=== PATIENT | male | born 1945 | race Caucasian/White ===

== ENCOUNTER 2020-05-09 09:21 | Outpatient (REF) | payer MEDICARE, SELFPAY ==
--- NOTE | 2020-05-09 09:25 | CT_ITS ---
EXAMINATION: CT CHEST WITHOUT CONTRAST CLINICAL INFORMATION: Follow-up left upper lobe opacity seen on chest x-ray COMPARISON: Previous chest x-ray January 2020 TECHNIQUE: Multidetector volumetric CT imaging of the chest was done. Axial MIP volume rendering provided. Sagittal and coronal reformatted images were obtained. This CT examination was performed using dose optimization techniques as appropriate, variously including the following: *Automated exposure control *Adjustment of mA and/or kV according to patient size (this includes techniques or standardized protocols for targeted exams where dose is matched to indication/reason for exam; i.e. extremities or head) *Use of iterative reconstruction technique DLP: 309 mGy-cm FINDINGS: LUNGS: There is evidence of emphysema. There is an abnormal parenchymal density in the right upper lobe. This is irregular in shape and difficult to measure. This measures 0.9 x 1.6 cm in sagittal and transverse dimension coronal reconstructed image 68 and 5 mm in AP dimension sagittal constructed image 87. This is adjacent 2 area of cystic or emphysematous change. There is a 2 mm noncalcified right middle lobe nodule axial image 469 series 5. There are increased peripheral interstitial markings questionable for interstitial disease. There are small calcified pulmonary nodules, largest measuring 3 mm in the right lower lobe axial image 468 and 474 series 5. There is increased AP dimension of the trachea. There is dependent increased soft tissue mixed with air seen in the right mainstem bronchus suggestive of patient secretions. MEDIASTINUM: The visualized thyroid gland is unremarkable. There is diffuse mediastinal lymphadenopathy. Largest lymph node is a subcarinal lymph node that measures 1.5 cm in AP dimension and is slightly enlarged. There are post-CABG changes. The heart is slightly enlarged. There is no pericardial effusion. The ascending thoracic aorta is slightly dilated measuring 4.3 cm. PLEURA: There is no pleural effusion. No pleural mass or thickening. AXILLA: No chest wall mass or enlarged axillary lymph nodes are seen. UPPER ABDOMEN: There is evidence of severe atherosclerotic disease. OSSEOUS STRUCTURES: There is evidence of old trauma to the left first rib probably accounting for findings on chest x-ray. There are degenerative changes of the spine. CT/CT chest wo con IMPRESSION: Severe emphysema. No left upper lobe finding. Chest x-ray finding probably corresponds to old left first rib fracture. Abnormal parenchymal density in the right upper lobe. Comparison with old outside chest CT if available is recommended. Either chest CT follow-up or PET CT scan should be considered. Question mild interstitial disease. Post-CABG changes. Prominent mediastinal lymph nodes. Severe atherosclerotic disease. Findings will be communicated by the [employer] work flow data management engineer Gladys Kulkarni.
== END 2020-05-09 09:22 | disposition home or self-care (01) ==
LOC: HO.CT 09:21
PROVIDERS: PCP Internal Medicine; Visit Provider Internal Medicine
DX: R91.8 Other nonspecific abnormal finding of lung field (principal)
CPT/HCPCS: 71250

== ENCOUNTER 2020-05-12 12:01 | Outpatient (REF) | payer MEDICARE, SELFPAY ==
[2020-05-12 14:08] LABS: MANUAL DIFF FLAG NO
[2020-05-12 14:17] LABS: Basophils Percent Auto 0.4 % (0-2); Eosinophils Absolute Auto 0.1 X10*3/uL (0.0-0.4); Eosinophils Percent Auto 1.1 % (0-4); Hematocrit 39.1 % (42-52); Hemoglobin 13.1 g/dl (14.0-18.0); Imm Gran Abs Auto 0.02 X10*3/uL (0.00-0.03); Imm Gran Pct Auto 0.3 % (0.0-0.4); Mean Corpuscular HGB Conc 33.5 g/dl (31.0-36.0); Mean Corpuscular Hemoglobin 33.9 pg (27.0-33.0); Mean Platelet Volume 11.2 fL (9.4-12.4); Monocytes Absolute Auto 0.9 X10*3/uL (0.1-1.2); Monocytes Percent Auto 11.9 % (2-11); Neutrophils Absolute Auto 4.2 X10*3/uL (2.0-8.3); Neutrophils Percent Auto 58.3 % (45-73); Platelet Count 190 X10*3/uL (160-400); Red Blood Count 3.87 X10*6/uL (4.60-5.80); Red Cell Distribution Width 13.6 % (11.0-16.0); White Blood Count 7.2 X10*3/uL (4.8-10.8)
[2020-05-12 14:25] LABS: INTERNATIONAL NORM RATIO 1.1 (0.9-1.1); Prothrombin Time 13.2 SEC (10.8-13.0)
[2020-05-12 14:28] LABS: Partial Thromboplastin Time 28.8 SEC (24.1-38.0)
[2020-05-12 14:43] LABS: Alanine Aminotransferase 16 U/L (0-40); Albumin Level 3.9 g/dL (3.5-5.0); Alkaline Phosphatase 37 U/L (39-117); Anion Gap 12 (12-20); Aspartate Amino Transferase 19 U/L (5-37); Bilirubin Total 0.8 mg/dL (0.0-1.0); Blood Urea Nitrogen 14 mg/dL (9-16); Calcium 8.7 mg/dL (8.4-10.2); Carbon Dioxide 29 mmol/L (22-29); Chloride 103 mmol/L (96-108); Estimated Glomerular Filt Rate > 60; Glucose Random 107 mg/dL (60-115); Potassium 3.7 mmol/l (3.3-5.1); Sodium 140 mmol/L (135-145); Total Protein 6.6 g/dL (6.5-8.0)
== END 2020-05-12 12:02 | disposition home or self-care (01) ==
LOC: HO.10HDL 12:01
PROVIDERS: Visit Provider Internal Medicine Medical Oncology
DX: R91.1 Solitary pulmonary nodule (principal)
CPT/HCPCS: 36415; 80053; 85025; 85610; 85730

== ENCOUNTER 2020-06-16 07:54 | Outpatient (REF) | payer MEDICARE, SELFPAY ==
--- NOTE | 2020-06-16 | MR_ITS ---
EXAMINATION: MRI NECK WITHOUT AND WITH CONTRAST CLINICAL INFORMATION: Polyp in nasal cavity. Presurgery. COMPARISON: FDG PET/CT scan 05/17/2020. TECHNIQUE: MRI of the neck was attempted. The patient was unable to tolerate imaging. Only a left limited sagittal T1 sequence was obtained. MR/MR orbits face neck wo/w con FINDINGS/IMPRESSION: Nondiagnostic examination. The patient was unable to tolerate imaging and only a limited sagittal T1 acquisition was performed.
[2020-06-16 09:44] LABS: MANUAL DIFF FLAG NO
[2020-06-16 09:55] LABS: Basophils Percent Auto 0.4 % (0-2); Eosinophils Absolute Auto 0.1 X10*3/uL (0.0-0.4); Eosinophils Percent Auto 1.1 % (0-4); Hematocrit 41.2 % (42-52); Imm Gran Abs Auto 0.04 X10*3/uL (0.00-0.03); Imm Gran Pct Auto 0.6 % (0.0-0.4); Lymphocytes Absolute Auto 2.3 X10*3/uL (1.2-4.9); Lymphocytes Percent Auto 32.1 % (20-40); Mean Corpuscular HGB Conc 31.6 g/dl (31.0-36.0); Mean Corpuscular Hemoglobin 32.5 pg (27.0-33.0); Mean Platelet Volume 10.9 fL (9.4-12.4); Monocytes Absolute Auto 0.9 X10*3/uL (0.1-1.2); Monocytes Percent Auto 11.9 % (2-11); Neutrophils Absolute Auto 3.9 X10*3/uL (2.0-8.3); Neutrophils Percent Auto 53.9 % (45-73); Platelet Count 171 X10*3/uL (160-400); Red Cell Distribution Width 13.8 % (11.0-16.0); White Blood Count 7.3 X10*3/uL (4.8-10.8)
[2020-06-16 10:34] LABS: Alanine Aminotransferase 14 U/L (0-40); Albumin Level 4.1 g/dL (3.5-5.0); Alkaline Phosphatase 35 U/L (39-117); Anion Gap 16 (12-20); Aspartate Amino Transferase 19 U/L (5-37); Bilirubin Total 0.6 mg/dL (0.0-1.0); Blood Urea Nitrogen 21 mg/dL (9-16); Calcium 8.9 mg/dL (8.4-10.2); Carbon Dioxide 26 mmol/L (22-29); Chloride 104 mmol/L (96-108); Estimated Glomerular Filt Rate > 60; Glucose Random 100 mg/dL (60-115); Potassium 4.3 mmol/l (3.3-5.1); Sodium 142 mmol/L (135-145); Total Protein 6.8 g/dL (6.5-8.0)
== END 2020-06-16 07:55 | disposition home or self-care (01) ==
LOC: HO.MRI 07:54
PROVIDERS: Absent Provider Internal Medicine Medical Oncology; PCP Internal Medicine; Visit Provider Otolaryngology
DX: Z01.818 Encounter for other preprocedural examination (principal); J33.0 Polyp of nasal cavity
CPT/HCPCS: 36415; 70543; 80053; 85025

== ENCOUNTER 2020-06-21 09:52 | Outpatient (REF) | payer MEDICARE, SELFPAY ==
--- NOTE | 2020-06-21 09:57 | CT_ITS ---
EXAMINATION: CT SINUS WITHOUT CONTRAST CLINICAL INFORMATION: Sinonasal polyps. COMPARISON: None TECHNIQUE: Axial 2 mm thin and reformatted 2 mm and sagittal coronal images of facial bones were obtained. This CT examination was performed using dose optimization techniques as appropriate, variously including the following: *Automated exposure control. *Adjustment of mA and/or kV according to patient size (this includes techniques or standardized protocols for targeted exams where dose is matched to indication/reason for exam; i.e. extremities or head). *Use of iterative reconstruction technique. DLP: 150 mGy-cm FINDINGS: There is a large soft tissue mass in the right maxillary sinus extending through the ostiomeatal complex into the right middle and inferior nasal cavity obliterating the right middle and inferior turbinates. There is thickening of right maxillary bony wall from chronic inflammatory process. The left maxillary sinus, ethmoid and sphenoid sinuses are clear. There is minimal mucoperiosteal thickening right frontal sinus at the left ostiomeatal complex and the left frontoethmoidal recess is widely patent. The right ostiomeatal complex is obliterated from this antrochoanal mass or polyp. The left maxillary, ethmoid and sphenoid bony sinus garrison are intact. The cribriform plate appears normal. Bilateral lamina papyracea appears normal. NASAL CAVITY/NASOPHARYNX: The right nasal cavity is obliterated from antrochoanal polyp or mass. The septum appears midline. The left middle and inferior turbinates are normal-appearing. ADDITIONAL RELEVANT FINDINGS: No periapical disease is seen. The TMJs articulate normally. The orbits and skull base soft tissues are unremarkable. The middle ear cavities and mastoid air cells are clear. Limited evaluation demonstrates no acute intracranial findings. CT/CT sinus wo con IMPRESSION: 1. 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 The middle and inferior turbinates are obliterated. There is obstruction of ostiomeatal complex and partial obstruction of right frontoethmoidal recess. There is moderate thickening of right maxillary sinus garrison likely chronic changes. 2. The right nasal cavity is obliterated. 3. Minimal mucoperiosteal thickening right frontal sinus.
== END 2020-06-21 09:53 | disposition home or self-care (01) ==
LOC: HO.CT 09:52
PROVIDERS: PCP Internal Medicine; Visit Provider Otolaryngology
DX: J33.0 Polyp of nasal cavity (principal)
CPT/HCPCS: 70486

== ENCOUNTER 2020-07-22 13:04 | Outpatient (REF) | payer MEDICARE, SELFPAY ==
[2020-07-22 14:25] LABS: Basophils Absolute Auto 0.1 X10*3/uL (0.0-0.2); Basophils Percent Auto 0.5 % (0-2); Eosinophils Absolute Auto 0.1 X10*3/uL (0.0-0.4); Eosinophils Percent Auto 0.8 % (0-4); Hemoglobin 13.8 g/dl (14.0-18.0); Imm Gran Abs Auto 0.03 X10*3/uL (0.00-0.03); Imm Gran Pct Auto 0.3 % (0.0-0.4); Lymphocytes Absolute Auto 2.2 X10*3/uL (1.2-4.9); MANUAL DIFF FLAG NO; Mean Corpuscular HGB Conc 32.9 g/dl (31.0-36.0); Mean Corpuscular Hemoglobin 33.2 pg (27.0-33.0); Mean Platelet Volume 11.2 fL (9.4-12.4); Monocytes Absolute Auto 0.9 X10*3/uL (0.1-1.2); Neutrophils Absolute Auto 5.9 X10*3/uL (2.0-8.3); Neutrophils Percent Auto 64.4 % (45-73); Platelet Count 195 X10*3/uL (160-400); Red Blood Count 4.16 X10*6/uL (4.60-5.80); Red Cell Distribution Width 13.3 % (11.0-16.0); White Blood Count 9.2 X10*3/uL (4.8-10.8)
[2020-07-22 15:05] LABS: Alanine Aminotransferase 15 U/L (0-40); Albumin Level 4.2 g/dL (3.5-5.0); Alkaline Phosphatase 35 U/L (39-117); Anion Gap 12 (12-20); Aspartate Amino Transferase 20 U/L (5-37); Bilirubin Total 0.8 mg/dL (0.0-1.0); Blood Urea Nitrogen 20 mg/dL (9-16); Calcium 9.3 mg/dL (8.4-10.2); Carbon Dioxide 30 mmol/L (22-29); Chloride 105 mmol/L (96-108); Estimated Glomerular Filt Rate > 60; Glucose Random 97 mg/dL (60-115); Potassium 4.1 mmol/l (3.3-5.1); Sodium 143 mmol/L (135-145)
== END 2020-07-22 13:05 | disposition home or self-care (01) ==
LOC: HO.LAB 13:04
PROVIDERS: PCP Internal Medicine; Visit Provider Internal Medicine
DX: I48.91 Unspecified atrial fibrillation (principal); I10 Essential (primary) hypertension; I25.10 Atherosclerotic heart disease of native coronary artery without angina pectoris; J44.9 Chronic obstructive pulmonary disease, unspecified
CPT/HCPCS: 36415; 80053; 85025

== ENCOUNTER 2020-11-07 14:35 | Outpatient (REF) | payer MEDICARE, SELFPAY ==
[2020-11-07 15:22] LABS: MANUAL DIFF FLAG NO
[2020-11-07 15:36] LABS: Basophils Percent Auto 0.5 % (0-2); Eosinophils Absolute Auto 0.1 X10*3/uL (0.0-0.4); Eosinophils Percent Auto 0.8 % (0-4); Hematocrit 38.3 % (42-52); Hemoglobin 12.4 g/dl (14.0-18.0); Imm Gran Abs Auto 0.04 X10*3/uL (0.00-0.03); Imm Gran Pct Auto 0.6 % (0.0-0.4); Lymphocytes Absolute Auto 1.8 X10*3/uL (1.2-4.9); Lymphocytes Percent Auto 29.1 % (20-40); Mean Corpuscular HGB Conc 32.4 g/dl (31.0-36.0); Mean Corpuscular Hemoglobin 32.5 pg (27.0-33.0); Mean Corpuscular Volume 100.3 fL (80-98); Mean Platelet Volume 11.2 fL (9.4-12.4); Monocytes Absolute Auto 0.7 X10*3/uL (0.1-1.2); Monocytes Percent Auto 11.7 % (2-11); Neutrophils Absolute Auto 3.6 X10*3/uL (2.0-8.3); Neutrophils Percent Auto 57.3 % (45-73); Platelet Count 197 X10*3/uL (160-400); Red Blood Count 3.82 X10*6/uL (4.60-5.80); Red Cell Distribution Width 14.4 % (11.0-16.0); White Blood Count 6.2 X10*3/uL (4.8-10.8)
[2020-11-07 15:43] LABS: INTERNATIONAL NORM RATIO 1.2 (0.9-1.1); Prothrombin Time 14.5 SEC (10.8-13.0)
[2020-11-07 15:45] LABS: Partial Thromboplastin Time 31.4 SEC (24.1-38.0)
[2020-11-07 15:50] LABS: Alanine Aminotransferase 13 U/L (0-40); Alkaline Phosphatase 35 U/L (39-117); Anion Gap 12 (12-20); Aspartate Amino Transferase 17 U/L (5-37); Bilirubin Total 0.6 mg/dL (0.0-1.0); Blood Urea Nitrogen 17 mg/dL (9-16); Calcium 9.6 mg/dL (8.4-10.2); Carbon Dioxide 30 mmol/L (22-29); Chloride 104 mmol/L (96-108); Estimated Glomerular Filt Rate > 60; Glucose Random 150 mg/dL (60-115); Potassium 3.7 mmol/L (3.3-5.1); Sodium 142 mmol/L (135-145); Total Protein 6.6 g/dL (6.5-8.0)
== END 2020-11-07 14:36 | disposition home or self-care (01) ==
LOC: HO.LAB 14:35
PROVIDERS: PCP Internal Medicine; Visit Provider Internal Medicine
DX: Z01.818 Encounter for other preprocedural examination (principal); I48.91 Unspecified atrial fibrillation; I10 Essential (primary) hypertension; J44.9 Chronic obstructive pulmonary disease, unspecified; R60.9 Edema, unspecified; I25.10 Atherosclerotic heart disease of native coronary artery without angina pectoris
CPT/HCPCS: 36415; 80053; 85025; 85610; 85730

== ENCOUNTER 2021-04-13 08:59 | Outpatient (REF) | payer MEDICARE, SELFPAY ==
[2021-04-13 09:13] LABS: MANUAL DIFF FLAG NO
[2021-04-13 10:32] LABS: Basophils Percent Auto 0.5 % (0-2); Eosinophils Absolute Auto 0.2 X10*3/uL (0.0-0.4); Hematocrit 34.2 % (42-52); Hemoglobin 10.4 g/dl (14.0-18.0); Imm Gran Abs Auto 0.02 X10*3/uL (0.00-0.03); Imm Gran Pct Auto 0.3 % (0.0-0.4); Lymphocytes Absolute Auto 1.8 X10*3/uL (1.2-4.9); Lymphocytes Percent Auto 23.6 % (20-40); Mean Corpuscular HGB Conc 30.4 g/dl (31.0-36.0); Mean Corpuscular Hemoglobin 26.6 pg (27.0-33.0); Mean Corpuscular Volume 87.5 fL (80-98); Mean Platelet Volume 10.9 fL (9.4-12.4); Monocytes Absolute Auto 1.1 X10*3/uL (0.1-1.2); Monocytes Percent Auto 15.1 % (2-11); Neutrophils Absolute Auto 4.3 X10*3/uL (2.0-8.3); Neutrophils Percent Auto 57.5 % (45-73); Platelet Count 254 X10*3/uL (160-400); Red Blood Count 3.91 X10*6/uL (4.60-5.80); Red Cell Distribution Width 18.7 % (11.0-16.0); White Blood Count 7.4 X10*3/uL (4.8-10.8)
[2021-04-13 10:56] LABS: Alanine Aminotransferase 12 U/L (0-40); Alkaline Phosphatase 38 U/L (39-117); Anion Gap 11 (12-20); Aspartate Amino Transferase 20 U/L (5-37); Bilirubin Total 0.8 mg/dL (0.0-1.0); Blood Urea Nitrogen 12 mg/dL (9-16); Calcium 9.7 mg/dL (8.4-10.2); Carbon Dioxide 28 mmol/L (22-29); Chloride 107 mmol/L (96-108); Cholesterol 116 mg/dL; Estimated Glomerular Filt Rate > 60; Glucose Fasting 105 mg/dL (60-99); HDL Cholesterol 23 mg/dL; LDL Cholesterol Calculated 76 mg/dl; Potassium 4.4 mmol/L (3.3-5.1); Sodium 142 mmol/L (135-145); Total Protein 6.8 g/dL (6.5-8.0); Triglycerides 87 mg/dL
[2021-04-13 11:04] LABS: Estimated Average Glucose 126 mg/dL
[2021-04-13 11:28] LABS: Prostate Specific Antigen Scr 3.13 ng/mL (<0.05-4.0)
== END 2021-04-13 09:00 | disposition home or self-care (01) ==
LOC: HO.LAB 08:59
PROVIDERS: PCP Internal Medicine; Visit Provider Internal Medicine
DX: Z12.5 Encounter for screening for malignant neoplasm of prostate (principal); I10 Essential (primary) hypertension; I48.91 Unspecified atrial fibrillation; R60.0 Localized edema; N40.0 Benign prostatic hyperplasia without lower urinary tract symptoms; D64.9 Anemia, unspecified; R73.03 Prediabetes; E78.5 Hyperlipidemia, unspecified
CPT/HCPCS: 36415; 80053; 80061; 83036; 84153; 85025

== ENCOUNTER 2021-10-31 16:18 | Outpatient (REF) | payer MEDICARE, SELFPAY ==
[2021-10-31 17:21] LABS: Influenza A PCR NEGATIVE (Negative); Influenza B PCR NEGATIVE (Negative); Resp Syncy Virus RNA Qual PCR NEGATIVE (Negative); SARS COV2 PCR INHOUSE NEGATIVE (Negative)
== END 2021-10-31 16:19 | disposition home or self-care (01) ==
LOC: HO.LNP 16:18
PROVIDERS: Visit Provider Internal Medicine
DX: R05.9 Cough, unspecified (principal); R50.9 Fever, unspecified; Z20.822 Contact with and (suspected) exposure to COVID-19
CPT/HCPCS: 0241U

== ENCOUNTER 2021-10-31 16:20 | Outpatient (REF) | payer MEDICARE, SELFPAY ==
--- NOTE | ~2021-10-31 | XR_ITS ---
EXAMINATION: XR CHEST CLINICAL INFORMATION: Rule out pneumonia, CHF COMPARISON: Chest radiograph 01/14/2020 TECHNIQUE: 2 views of the chest were obtained. FINDINGS: Status post median sternotomy and CABG. Cardiomediastinal silhouette is mildly enlarged. Underlying COPD. There are chronic underlying interstitial lung markings with more pronounced opacities involving the right middle lobe and right upper lobe. There is no pleural effusion or pneumothorax. There are degenerative changes in the spine. XR/XR chest 2V IMPRESSION: Underlying COPD with chronic appearing interstitial markings. More pronounced opacities in the right middle lobe and right upper lobe which may reflect acute infiltrate versus progressive interstitial changes.
[2021-10-31 16:39] LABS: MANUAL DIFF FLAG NO
[2021-10-31 17:47] LABS: Basophils Percent Auto 0.3 % (0-2); Eosinophils Absolute Auto 0.1 X10*3/uL (0.0-0.4); Eosinophils Percent Auto 0.5 % (0-4); Hematocrit 28.8 % (42.0-52.0); Hemoglobin 8.9 g/dl (14.0-18.0); Imm Gran Abs Auto 0.09 X10*3/uL (0.00-0.03); Imm Gran Pct Auto 0.7 % (0.0-0.4); Lymphocytes Absolute Auto 1.1 X10*3/uL (1.2-4.9); Lymphocytes Percent Auto 8.5 % (20-40); Mean Corpuscular HGB Conc 30.9 g/dl (31.0-36.0); Mean Corpuscular Hemoglobin 26.8 pg (27.0-33.0); Mean Corpuscular Volume 86.7 fL (80.0-98.0); Mean Platelet Volume 10.8 fL (9.4-12.4); Monocytes Absolute Auto 1.4 X10*3/uL (0.1-1.2); Monocytes Percent Auto 11.4 % (2-11); Neutrophils Absolute Auto 9.9 x10*3/uL (2.0-8.3); Neutrophils Percent Auto 78.6 % (45-73); Platelet Count 276 X10*3/uL (160-400); Red Blood Count 3.32 X10*6/uL (4.60-5.80); Red Cell Distribution Width 19.2 % (11.0-16.0); White Blood Count 12.6 X10*3/uL (4.8-10.8)
[2021-10-31 18:00] LABS: Alanine Aminotransferase 9 U/L (0-40); Albumin Level 3.3 g/dL (3.5-5.0); Alkaline Phosphatase 43 U/L (39-117); Anion Gap 15 (12-20); Aspartate Amino Transferase 23 U/L (5-37); Bilirubin Total 1.2 mg/dL (0.0-1.0); Blood Urea Nitrogen 17 mg/dL (9-16); Carbon Dioxide 24 mmol/L (22-29); Chloride 102 mmol/L (96-108); Estimated Glomerular Filt Rate > 60; Glucose Random 109 mg/dL (60-115); Sodium 137 mmol/L (135-145); Total Protein 6.4 g/dL (6.5-8.0)
== END 2021-10-31 16:21 | disposition home or self-care (01) ==
LOC: HO.LAB 16:20
PROVIDERS: PCP Internal Medicine; Visit Provider Internal Medicine
DX: R06.02 Shortness of breath (principal); I48.91 Unspecified atrial fibrillation; J44.9 Chronic obstructive pulmonary disease, unspecified; Z95.1 Presence of aortocoronary bypass graft
CPT/HCPCS: 36415; 71046; 80053; 85025

== ENCOUNTER 2022-01-16 10:20 | Outpatient (REF) | payer MEDICARE, SELFPAY ==
--- NOTE | ~2022-01-16 | XR_ITS ---
EXAMINATION: XR ANKLE, LEFT CLINICAL INFORMATION: Left ankle pain. Possible spur. COMPARISON: None TECHNIQUE: AP, lateral, and mortise views of the left ankle. FINDINGS: Normal bony mineralization. No acute or healing fracture, dislocation, or destructive process. Ankle mortise is symmetric. No visible ankle capsular effusion. The subtalar joint unremarkable. There is tiny spur inferior aspect medial malleolus. There are small posterior and plantar calcaneal spurs. The retrocalcaneal recess is preserved. Subtalar joint unremarkable. Scattered atherosclerotic calcifications present vasculature. XR/XR ankle LT 2V IMPRESSION: -Posterior and plantar calcaneal spurs.
--- NOTE | ~2022-01-16 | XR_ITS ---
EXAMINATION: XR CHEST CLINICAL INFORMATION: Cough COMPARISON: Previous chest x-ray most recent October 2021 TECHNIQUE: 2 views of the chest were obtained. FINDINGS: The cardiac silhouette is enlarged but stable. Post-CABG changes are seen. Hilar and mediastinal contours are unremarkable. There are emphysematous changes seen at the lung apices. The lungs are otherwise clear. There is slight blunting at the right lateral costophrenic angle questionable for small right pleural effusion or pleural thickening. There is no left pleural effusion. There is no pneumothorax. There are degenerative changes of the spine. XR/XR chest 2V IMPRESSION: Stable enlargement of the cardiac silhouette. Emphysematous changes at the lung apices, right greater than left. Question very small right pleural effusion or pleural thickening.
[2022-01-16 10:37] LABS: MANUAL DIFF FLAG NO
[2022-01-16 10:51] LABS: Basophils Percent Auto 0.5 % (0-2); Eosinophils Percent Auto 0.4 % (0-4); Imm Gran Abs Auto 0.05 X10*3/uL (0.00-0.03); Imm Gran Pct Auto 0.6 % (0.0-0.4); Lymphocytes Absolute Auto 1.6 X10*3/uL (1.2-4.9); Lymphocytes Percent Auto 20.9 % (20-40); Mean Corpuscular HGB Conc 29.5 g/dl (31.0-36.0); Mean Corpuscular Hemoglobin 25.5 pg (27.0-33.0); Mean Corpuscular Volume 86.6 fL (80.0-98.0); Mean Platelet Volume 9.7 fL (9.4-12.4); Monocytes Absolute Auto 0.8 X10*3/uL (0.1-1.2); Monocytes Percent Auto 10.7 % (2-11); Neutrophils Absolute Auto 5.2 x10*3/uL (2.0-8.3); Neutrophils Percent Auto 66.9 % (45-73); Platelet Count 263 X10*3/uL (160-400); Red Blood Count 2.39 X10*6/uL (4.60-5.80); White Blood Count 7.8 X10*3/uL (4.8-10.8)
[2022-01-16 11:08] LABS: Iron 27 mcg/dL (45-160); Percent Iron Saturation 5 % (15-50); Total Iron Binding Capacity 528 mcg/dL (228-428); Unsaturated Iron Binding 501 ug/dL
[2022-01-16 11:10] LABS: Hematocrit 20.7 % (42.0-52.0); Hemoglobin 6.1 g/dl (14.0-18.0)
== END 2022-01-16 10:21 | disposition home or self-care (01) ==
LOC: HO.LAB 10:20
PROVIDERS: PCP Internal Medicine; Visit Provider Internal Medicine
DX: M25.572 Pain in left ankle and joints of left foot (principal); R05.9 Cough, unspecified; D64.9 Anemia, unspecified; I48.91 Unspecified atrial fibrillation
CPT/HCPCS: 36415; 71046; 73600; 83540; 85025

== ENCOUNTER 2022-01-17 10:56 | Inpatient (IN) | payer MEDICARE, SELFPAY ==
[2022-01-17] VITALS (11 sets, daily range): BP systolic 90–117; BP diastolic 41–65; PULSE 64–86; RESP 15–25; TEMP 36.4–37.1; O2SAT 95–96; BMI 27.6
--- NOTE | ~2022-01-17 | XR_ITS ---
EXAMINATION: XR CHEST CLINICAL INFORMATION: Shortness of breath COMPARISON: 01/16/2022 TECHNIQUE: Frontal view of the chest was obtained. FINDINGS: Lung volumes are symmetric. There is suggestion of mildly increasing interstitial opacification compared to prior. Redemonstrated findings of emphysema. No focal dense consolidation is seen. No evidence of pneumothorax or significant pleural effusion. Cardiac silhouette is enlarged. Sternal wires and mediastinal clips are noted. No acute osseous findings are seen. XR/XR chest 1V IMPRESSION: Mild interstitial prominence which could reflect subtle interstitial edema in the proper clinical setting. Redemonstrated emphysema.
--- NOTE | 2022-01-17 11:20 | ECG_ITS ---
Test Reason : weakness Blood Pressure : / mmHG Vent. Rate : 061 BPM Atrial Rate : 000 BPM P-R Int : 000 ms QRS Dur : 102 ms QT Int : 424 ms P-R-T Axes : 000 -02 147 degrees QTc Int : 426 ms Atrial fibrillation Low voltage QRS Nonspecific T wave abnormality Abnormal ECG No previous ECGs available Referred By: Florence Becker Electronically Signed By:SHANNON ANGULO MD
--- NOTE | 2022-01-17 11:41 | ED_ITS ---
HPI - Weakness General Chief complaint: Recheck/Abnormal Lab/Rx Stated complaint: pt states low hemoglobin Time Seen by Provider: 01/17/22 11:15 Source: patient and family Mode of arrival: ambulatory Limitations: no limitations History of Present Illness HPI Narrative: 76 yo male with hx of CAD s/p 4V CABG, COPD, HTN, HLD, afib on xarelto (just started this 2 weeks ago) also on baby aspirin. Denies taking any OTC NSAIDs. He denies prior GIB and has never had EGD in the past. Notes 2 months of worsening dyspnea and fatigue. Intermittent melena. One episode of brb per rectum this week with straining. Sent to ED by [facility] for hemoglobin 6.1. Has not received any recent transfusions. MD Complaint: generalized weakness Onset (ago): month(s) (2 but progressively worse over past 2 weeks) Duration: constant Location: generalized Migration: none Severity: moderate Quality: dull Relieving factors: rest Exacerbating factors: exertion Context: other (just started xarelto 2 weeks ago used to be on plavix has had intermittent black stools, did recently have brb per x 1 with straining) Associated symptoms: other (weakness, intermittent black stools, HOLMAN, fatigue) Related Data Home Medications Medication Instructions Recorded Confirmed aspirin 81 mg chewable tablet 81 mg PO DAILY 01/17/22 01/17/22 atorvastatin 40 mg tablet 1 tab PO BEDTIME 01/17/22 01/17/22 budesonide-formoterol HFA 160 1 puff PO BID 01/17/22 01/17/22 mcg-4.5 mcg/actuation aerosol inhaler (Symbicort) cholecalciferol (vitamin D3) 125 125 mcg PO DAILY 01/17/22 01/17/22 mcg (5,000 unit) tablet (Vitamin D3) diltiazem HCl 240 mg capsule,24 1 cap PO DAILY 01/17/22 01/17/22 hr,extended release dutasteride 0.5 mg capsule 1 cap PO BEDTIME 01/17/22 01/17/22 fenofibrate nanocrystallized 145 1 tab PO DAILY 01/17/22 01/17/22 mg tablet fluticasone propionate 50 1 spray intranasal DAILY PRN 01/17/22 01/17/22 mcg/actuation nasal Allergy Symptoms spray,suspension furosemide 40 mg tablet 1 tab PO DAILY 01/17/22 01/17/22 guaifenesin 1,200 mg tablet, 1,200 mg PO BID PRN Cough 01/17/22 01/17/22 extended release 12 hr (Mucinex) lisinopril 20 mg tablet 1 tab PO DAILY 01/17/22 01/17/22 metoprolol succinate 100 mg 1 tab PO DAILY 01/17/22 01/17/22 tablet,extended release 24 hr rivaroxaban 20 mg tablet (Xarelto) 1 tab PO BEDTIME 01/17/22 01/17/22 Allergies Allergy/AdvReac Type Severity Reaction Status Date / Time No Known Allergies Allergy Verified 01/17/22 11:19 Review of Systems Review of Systems: Constitutional : No Fever, No Chills, pos Fatigue, pos Malaise ENT/Mouth : No sore throat, No Rhinorrhea Eyes: No Eye Pain, No Swelling, No Redness Cardiovascular : No Chest Pain, No SOB, No Dyspnea on Exertion, No Orthopnea, No Edema, No Palpitations Respiratory : No Cough, No Sputum, No Wheezing Gastrointestinal : No Nausea, No Vomiting, No Diarrhea, No Constipation, No abdominal Pain, pos Hematochezia, pos Melena Genitourinary : No Dysuria, No Urinary Frequency, No Hematuria, Musculoskeletal : No joint pain, No Myalgias, No Joint Swelling Skin : No Skin Lesions, No rash Neuro : pos Weakness, No Numbness, No Dizziness, No Headache Psych : No Anxiety/Panic, No Depression Heme/Lymph: No Bruising, No Bleeding,No Lymphadenopathy Endocrine : No Polyuria, No Polydipsia All other systems reviewed and are negative [facility] Past Medical History Attestation statement: The following information was validated with the patient. Medical History Afib CAD (coronary artery disease) COPD (chronic obstructive pulmonary disease) Hyperlipidemia Nasal sinus tumor Surgical History Hx of CABG Social History Social History (Updated 01/17/22 @ 11:49 by Florence Becker DO) Alcohol intake: current Alcohol intake frequency: 0-2 drinks per day Alcohol type: wine Patient Tobacco Use Status: Never used Tobacco Use of substances other than those prescribed or required for medical reasons: No Advance Directives: No Physical Exam Vital Signs: Vital Signs: Last Vital Signs Temp 98.8 F 01/17/22 15:14 Pulse 69 01/17/22 15:14 Resp 25 H 01/17/22 15:14 BP 101/55 L 01/17/22 15:14 Pulse Ox 96 01/17/22 11:40 O2 Del Method 01/17/22 11:40 BMI result Body Mass Index 27.6 Appearance: Alert. Oriented X3. No acute distress. Eyes: Pupils equal, round and reactive to light. Pale sclera ENT: Pharynx normal. Neck: Normal inspection. Neck supple. CVS: Normal heart rate and rhythm. Pulses normal. Respiratory: No respiratory distress. Breath sounds normal. Abdomen: Soft and nontender. Rectal: melena Skin: Skin warm and dry. pale skin color. Normal skin turgor. Extremities: No lower extremity edema. No calf ttp Neuro: Oriented X 3. No motor deficit. No sensory deficit. Course Course Course Narrative: hypotension due to acute blood loss and not infection or severe sepsis Dr. Boothe aware plan for scope tomorrow 3rd unit of blood ordered MDM - Weakness MDM Narrative Medical decision making narrative: 76 yo male with hx of CAD s/p 4V CABG, COPD, HTN, HLD, afib on xarelto here with HOLMAN and fatigue found to be anemic with PCP. He has had intermittent melena as well as one episode of brb pr - at this time IV protonix ordered and protonix gtt, 2 units of PRBC and likely lasix in between. Planned admit. No prior GIB in past suspect new xarelto is contributing to his symptoms. He has no abdominal pain. Lab Data Result diagrams: 01/17/22 13:36 01/17/22 11:35 Labs: Lab Results 01/17/22 01/17/22 01/17/22 Range/Units 11:31 11:31 11:35 WBC (4.8-10.8) X10*3/uL RBC (4.60-5.80) X10*6/uL Hgb (14.0-18.0) g/dl Hct (42.0-52.0) % MCV (80.0-98.0) fL MCH (27.0-33.0) pg MCHC (31.0-36.0) g/dl RDW (11.0-16.0) % Plt Count (160-400) X10*3/uL MPV (9.4-12.4) fL Absolute Nucleated RBC (0.0-0.012) X10*3/uL Nucleated RBC % (auto) (0.0-0.2) /100WBC PT 26.9 H (10.0-13.1) SEC INR 2.3 H (0.9-1.1) APTT 39.1 H (24.1-38.0) SEC Sodium (135-145) mmol/L Potassium (3.3-5.1) mmol/L Chloride (96-108) mmol/L Carbon Dioxide (22-29) mmol/L Anion Gap (12-20) BUN (9-16) mg/dL Creatinine (0.5-1.4) mg/dL Estim Creat Clear Calc Estimated GFR Random Glucose (60-115) mg/dL Calcium (8.4-10.2) mg/dL Magnesium (1.6-2.6) mg/dL Total Bilirubin (0.0-1.0) mg/dL Direct Bilirubin (0.0-0.5) mg/dL AST (5-37) U/L ALT (0-40) U/L Alkaline Phosphatase (39-117) U/L Troponin I High Sens (<3.5-35.0) ng/L Total Protein (6.5-8.0) g/dL Albumin (3.5-5.0) g/dL Stool Occult Blood POSITIVE (NEGATIVE) COVID-19 ([facility]) Negative (Negative) COVID-19 Clin Com See Note Blood Type Antibody Screen Crossmatch 01/17/22 01/17/22 01/17/22 Range/Units 11:35 11:35 11:49 WBC (4.8-10.8) X10*3/uL RBC (4.60-5.80) X10*6/uL Hgb (14.0-18.0) g/dl Hct (42.0-52.0) % MCV (80.0-98.0) fL MCH (27.0-33.0) pg MCHC (31.0-36.0) g/dl RDW (11.0-16.0) % Plt Count (160-400) X10*3/uL MPV (9.4-12.4) fL Absolute Nucleated RBC (0.0-0.012) X10*3/uL Nucleated RBC % (auto) (0.0-0.2) /100WBC PT (10.0-13.1) SEC INR (0.9-1.1) APTT (24.1-38.0) SEC Sodium 137 (135-145) mmol/L Potassium 4.1 (3.3-5.1) mmol/L Chloride 108 (96-108) mmol/L Carbon Dioxide 24 (22-29) mmol/L Anion Gap 9 L (12-20) BUN 20 H (9-16) mg/dL Creatinine 0.86 (0.5-1.4) mg/dL Estim Creat Clear Calc 77.8 Estimated GFR > 60 Random Glucose 126 H (60-115) mg/dL Calcium 8.5 (8.4-10.2) mg/dL Magnesium 1.9 (1.6-2.6) mg/dL Total Bilirubin 0.8 (0.0-1.0) mg/dL Direct Bilirubin 0.5 (0.0-0.5) mg/dL AST 19 (5-37) U/L ALT 7 (0-40) U/L Alkaline Phosphatase 34 L D (39-117) U/L Troponin I High Sens 8.8 (<3.5-35.0) ng/L Total Protein 5.8 L (6.5-8.0) g/dL Albumin 3.3 L (3.5-5.0) g/dL Stool Occult Blood (NEGATIVE) COVID-19 ([facility]) (Negative) COVID-19 Clin Com Blood Type O Positive Antibody Screen NEGATIVE Crossmatch See Detail 01/17/22 Range/Units 13:36 WBC 5.2 (4.8-10.8) X10*3/uL RBC 2.19 L (4.60-5.80) X10*6/uL Hgb 5.6 L* (14.0-18.0) g/dl Hct 19.0 L* (42.0-52.0) % MCV 86.8 (80.0-98.0) fL MCH 25.6 L (27.0-33.0) pg MCHC 29.5 L (31.0-36.0) g/dl RDW 21.0 H (11.0-16.0) % Plt Count 221 (160-400) X10*3/uL MPV 9.5 (9.4-12.4) fL Absolute Nucleated RBC 0.000 (0.0-0.012) X10*3/uL Nucleated RBC % (auto) 0.0 (0.0-0.2) /100WBC PT (10.0-13.1) SEC INR (0.9-1.1) APTT (24.1-38.0) SEC Sodium (135-145) mmol/L Potassium (3.3-5.1) mmol/L Chloride (96-108) mmol/L Carbon Dioxide (22-29) mmol/L Anion Gap (12-20) BUN (9-16) mg/dL Creatinine (0.5-1.4) mg/dL Estim Creat Clear Calc Estimated GFR Random Glucose (60-115) mg/dL Calcium (8.4-10.2) mg/dL Magnesium (1.6-2.6) mg/dL Total Bilirubin (0.0-1.0) mg/dL Direct Bilirubin (0.0-0.5) mg/dL AST (5-37) U/L ALT (0-40) U/L Alkaline Phosphatase (39-117) U/L Troponin I High Sens (<3.5-35.0) ng/L Total Protein (6.5-8.0) g/dL Albumin (3.5-5.0) g/dL Stool Occult Blood (NEGATIVE) COVID-19 ([facility]) (Negative) COVID-19 Clin Com Blood Type Antibody Screen Crossmatch ECG Data Attestation: I personally reviewed and interpreted this ECG as follows: ECG interpretation date: 01/17/22 ECG interpretation time: 12:23 Interpretation: Rate: 61 Rhythm: afib [place]: normal Normal QRS complex. ST T wave : nonspecific no THU qTC: normal prior studies: none available The study has been interpreted contemporaneously by me. . Critical Care Time Critical Care Time Critical Care Time: Yes Total Critical Care Time: 45 Attestation: medical consult, transfusion of 3 units PRBCs, admit I attest to this time spent taking care of the patient Discharge Plan Discharge Clinical Impression: Acute blood loss anemia, Acute upper gastrointestinal bleeding Patient Disposition: Admitted As Inpatient
[2022-01-17 11:42] LABS: OBS Int Ctl Valid YES; OBS1 POSITIVE (NEGATIVE)
[2022-01-17 11:47] LABS: INTERNATIONAL NORM RATIO 2.3 (0.9-1.1); Prothrombin Time 26.9 SEC (10.0-13.1)
[2022-01-17 11:49] LABS: Partial Thromboplastin Time 39.1 SEC (24.1-38.0)
[2022-01-17] MEDS: Pantoprazole Sodium 40 MG/10 ML VIAL IVPUSH (11:53)
[2022-01-17 11:56] LABS: COVID-19 Test Negative (Negative); IDNOW Serial# 9DB6401D
[2022-01-17 12:01] LABS: Troponin-I High Sensitivity 8.8 ng/L (<3.5-35.0)
[2022-01-17 12:09] LABS: Alanine Aminotransferase 7 U/L (0-40); Albumin Level 3.3 g/dL (3.5-5.0); Alkaline Phosphatase 34 U/L (39-117); Anion Gap 9 (12-20); Aspartate Amino Transferase 19 U/L (5-37); Bilirubin Direct 0.5 mg/dL (0.0-0.5); Bilirubin Total 0.8 mg/dL (0.0-1.0); Blood Urea Nitrogen 20 mg/dL (9-16); Calcium 8.5 mg/dL (8.4-10.2); Carbon Dioxide 24 mmol/L (22-29); Chloride 108 mmol/L (96-108); Creatinine Clr Calc Pharmacy 77.8; Estimated Glomerular Filt Rate > 60; Glucose Random 126 mg/dL (60-115); Magnesium 1.9 mg/dL (1.6-2.6); Potassium 4.1 mmol/L (3.3-5.1); Sodium 137 mmol/L (135-145); Total Protein 5.8 g/dL (6.5-8.0)
[2022-01-17] MEDS: Lactated Ringers 1,000 ML 999 ML IV (12:28)
--- NOTE | 2022-01-17 12:39 | PHA.MEDREC ---
Pharmacy Consult ? Medication Reconciliation Pharmacy has completed the medication reconciliation. Patient's had a list of medications. Reports patient is no longer on Plavix. Rody Ghosh, PharmD
[2022-01-17] MEDS: Pantoprazole Sodium 80 MG in 0.9 % Sodium Chloride 80 ML 10 MG IV ×2 (12:40→22:52)
[2022-01-17 13:54] LABS: Mean Corpuscular HGB Conc 29.5 g/dl (31.0-36.0); Mean Corpuscular Hemoglobin 25.6 pg (27.0-33.0); Mean Corpuscular Volume 86.8 fL (80.0-98.0); Mean Platelet Volume 9.5 fL (9.4-12.4); Platelet Count 221 X10*3/uL (160-400); Red Blood Count 2.19 X10*6/uL (4.60-5.80); White Blood Count 5.2 X10*3/uL (4.8-10.8)
[2022-01-17 13:58] LABS: Hemoglobin 5.6 g/dl (14.0-18.0)
--- NOTE | 2022-01-17 15:37 | PM.EVENT ---
Event Note Date of Service: 01/17/22 Event Note: GI consult dictated EGD planned for 01/18 for further evaluation of black stools and acute anemia. Mr Diaz is aware of risks and benefits and agrees to proceed. Continue ppi. Transfuse prn.
--- NOTE | 2022-01-17 16:14 | P.HPHOSP_ITS ---
History of Present Illness Date of Service: 01/17/22 Chief Complaint: Abnormal labs This is a 76-year-old male with a past medical history of CAD status post CABG more than 20 years ago, atrial fibrillation diagnose more than 10 years ago not on anticoagulation up until 2 weeks ago, on aspirin, hypertension hyperl ipidemia, others as listed below who presented the [facility] ED after he was advised to do so by his primary care provider for abnormal labs. Apparently the patient had lab work completed as an outpatient yesterday due to complaints of generalized weakness and leg cramps/weakness where he was noted to be significantly anemic. Hence he was advised to come to the emergency room. H&H in the emergency room repeated showed a value of 5.6/19. He was hypotensive with systolic blood pressures in 90s. His occult blood was positive. 3 units of packed red cells have been ordered, he has been started on IV Protonix and will now be admitted for workup and treatment of suspected upper GI bleed. The patient himself reports that for the last several weeks he has had generalized weakness and fatigue with associated dizziness, particularly when standing from seated to supine position. He denies any syncopal episodes. He denies any chest pain or shortness of breath. He reports that he has noticed dark colored stools occurring over the last several weeks. He is unsure if these were occurring prior to initiation of Xarelto. He denies any abdominal pain, nausea, vomiting. He does report to a decreased appetite and a 60 lb weight loss in the last 1 year. Review of Systems Review of Systems: Negative except [facility] Medical History Afib CAD (coronary artery disease) COPD (chronic obstructive pulmonary disease) Hyperlipidemia Nasal sinus tumor Pertinent family history: CAD in father who at young change CAD in mother who in her 90s Surgical History Hx of CABG Social History Alcohol intake: current Alcohol intake frequency: 0-2 drinks per day Alcohol type: wine Patient Tobacco Use Status: Never used Tobacco Use of substances other than those prescribed or required for medical reasons: No Advance Directives: No Meds Allergies Allergy/AdvReac Type Severity Reaction Status Date / Time No Known Allergies Allergy Verified 01/17/22 11:19 Active Medications: Current Medications Acetaminophen (Acetaminophen 325 Mg Tablet) 650 mg PO Q6H PRN PRN Reason: Pain, Mild (Pain Scale 1-3) Pantoprazole Sodium 80 mg/ (Sodium Chloride) 100 mls @ 10 mls/hr IV .Q10H [facility] Last Admin: 01/17/22 12:40 Dose: 8 mg/hr, 10 mls/hr Ondansetron HCl (Ondansetron Hcl 4 Mg/2 Ml Vial) 4 mg IVPUSH Q8H PRN PRN Reason: Nausea and Vomiting Pharmacy Consult (Consult Rx Perform Med Rec) 1 each MISCELLANE ONCE PRN PRN Reason: Consult order Sodium Chloride (0.9 % Sodium Chloride Flush 3 Ml Syringe) 3 ml IVFLUSH QSHIFT [facility] Home Medications Medication Instructions Recorded Confirmed Last Taken Type aspirin 81 mg chewable tablet 81 mg PO DAILY 01/17/22 01/17/22 01/17/22 History atorvastatin 40 mg tablet 1 tab PO BEDTIME 01/17/22 01/17/22 01/16/22 History budesonide-formoterol HFA 160 1 puff PO BID 01/17/22 01/17/22 01/17/22 History mcg-4.5 mcg/actuation aerosol inhaler (Symbicort) cholecalciferol (vitamin D3) 125 125 mcg PO DAILY 01/17/22 01/17/22 01/17/22 History mcg (5,000 unit) tablet (Vitamin D3) diltiazem HCl 240 mg capsule,24 1 cap PO DAILY 01/17/22 01/17/22 01/17/22 History hr,extended release dutasteride 0.5 mg capsule 1 cap PO BEDTIME 01/17/22 01/17/22 01/16/22 History fenofibrate nanocrystallized 145 1 tab PO DAILY 01/17/22 01/17/22 01/17/22 History mg tablet fluticasone propionate 50 1 spray intranasal DAILY PRN 01/17/22 01/17/22 01/17/22 History mcg/actuation nasal Allergy Symptoms spray,suspension furosemide 40 mg tablet 1 tab PO DAILY 01/17/22 01/17/22 01/16/22 History guaifenesin 1,200 mg tablet, 1,200 mg PO BID PRN Cough 01/17/22 01/17/22 01/17/22 History extended release 12 hr (Mucinex) lisinopril 20 mg tablet 1 tab PO DAILY 01/17/22 01/17/22 01/17/22 History metoprolol succinate 100 mg 1 tab PO DAILY 01/17/22 01/17/22 01/17/22 History tablet,extended release 24 hr rivaroxaban 20 mg tablet (Xarelto) 1 tab PO BEDTIME 01/17/22 01/17/22 01/16/22 History Physical Exam Vital Signs and Narrative: Vital Signs: Last Vital Signs Temp 98.8 F 01/17/22 15:14 Pulse 69 01/17/22 15:14 Resp 25 H 01/17/22 15:14 BP 101/55 L 01/17/22 15:14 Pulse Ox 96 01/17/22 11:40 O2 Del Method 01/17/22 11:40 BMI result Body Mass Index 27.6 Const: Other: Constitutional - Awake and Alert, No apparent distress, pale appearing Eyes - PERRLA, EOMI Cardiovascular - S1S2, RRR, No edema Respiratory - Normal lung expansion, Normal respiratory effort, No respiratory distress, CTA bilaterally Gastrointestinal - NT / ND; +BS; No rebound or guarding - No CVA tenderness Extremities - no calf tenderness bilaterally, no swelling Musculoskeletal - Normal inspection, normal ROM Skin - Warm/Dry Neurological - Alert & oriented x3, No focal deficit Psychological - Appropriate affect Results Labs CBC and Chem 7: 01/17/22 13:36 01/17/22 11:35 Labs: Laboratory Results - last 24 hr 01/17/22 01/17/22 01/17/22 11:31 11:31 11:35 MCV MCH MCHC RDW Plt Count MPV Absolute Nucleated RBC Nucleated RBC % (auto) PT 26.9 H INR 2.3 H APTT 39.1 H Anion Gap Estim Creat Clear Calc Estimated GFR Random Glucose Calcium Magnesium Total Bilirubin Direct Bilirubin AST ALT Alkaline Phosphatase Troponin I High Sens Total Protein Albumin Stool Occult Blood POSITIVE COVID-19 ([facility]) Negative COVID-19 Clin Com See Note Blood Type Antibody Screen Crossmatch 01/17/22 01/17/22 01/17/22 11:35 11:35 11:49 MCV MCH MCHC RDW Plt Count MPV Absolute Nucleated RBC Nucleated RBC % (auto) PT INR APTT Anion Gap 9 L Estim Creat Clear Calc 77.8 Estimated GFR > 60 Random Glucose 126 H Calcium 8.5 Magnesium 1.9 Total Bilirubin 0.8 Direct Bilirubin 0.5 AST 19 ALT 7 Alkaline Phosphatase 34 L D Troponin I High Sens 8.8 Total Protein 5.8 L Albumin 3.3 L Stool Occult Blood COVID-19 ([facility]) COVID-19 Clin Com Blood Type O Positive Antibody Screen NEGATIVE Crossmatch See Detail 01/17/22 13:36 MCV 86.8 MCH 25.6 L MCHC 29.5 L RDW 21.0 H Plt Count 221 MPV 9.5 Absolute Nucleated RBC 0.000 Nucleated RBC % (auto) 0.0 PT INR APTT Anion Gap Estim Creat Clear Calc Estimated GFR Random Glucose Calcium Magnesium Total Bilirubin Direct Bilirubin AST ALT Alkaline Phosphatase Troponin I High Sens Total Protein Albumin Stool Occult Blood COVID-19 ([facility]) COVID-19 Clin Com Blood Type Antibody Screen Crossmatch Assessment and Plan (1) Acute blood loss anemia: Status: Acute (2) Acute upper gastrointestinal bleeding: Status: Acute Plan This is a 76-year-old male with a past medical history of CAD status post CABG, AFib for greater than 10 years but not on any anticoagulation up until about 2 weeks ago who presents to the hospital with a several week history of progressive generalized weakness, lightheadedness. He endorses dark colored stools and is found to be significantly anemic. His presentation is most consistent with acute blood loss anemia secondary to a suspected gastrointestinal bleed, likely upper. 1. Acute Blood loss anemia due to suspected GI bleed 3 units PRBCs ordered check h/h post transfusion place on telemonitor in light of know CAD status IV protonix drip Gi consult -- likely will need scope hold asa/xarelto 2. Hypotension due to #1 and not severe sepsis BP is improving slowly, continue to monitor 3. CAD s/p 4v CABG hold all PO meds including BP meds + asa 4. A. fib rates controlled on metoprolol + cardizem at home -- hold both; monitor on tele 5. COPD not in exacerbation inhalers as needed Full Code DVT pptx -- mechanical due to suspected GI bleed Endorses his as HCP Due to profound anemia (symptomatic with hypotension) and like GI bleed which will require inpatient evaluation -- I anticipate a medically necessary inpatien t hospitalization for management and treatment of the previously mentioned conditions. Quality Stroke Does the patient have a stroke diagnosis?: No VTE Prior VTE?: No VTE Risk Level:: Medical - moderate - high VTE Device Contraindication: N/A - Device Ordered VTE Drug Contraindication: Treatment Not Indicated
--- NOTE | 2022-01-17 16:21 | CONS_ITS ---
DATE OF SERVICE: 01/17/2022 REFERRING PHYSICIAN: Florence Becker DO REASON FOR CONSULTATION: Acute anemia and black stools. HISTORY OF PRESENT ILLNESS: The patient is a pleasant 76-year-old man, who presented to the emergency room for further evaluation of acute anemia at the request of his primary care provider. 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 He was on baby aspirin and continued this as well for atrial fibrillation. Over this time period he has been very weak and fatigued. He has had intermittent black stools and one episode of hematochezia that was self-limited when he strained. Blood work done through his primary care provider's office yesterday documented a hematocrit of 20.7, which was down from 28.8 in October. Repeat laboratories today showed a hematocrit of 19. Rectal examination in the emergency room disclosed black stool. The patient denies joseph melena. He does not use any other NSAIDs and has not had any abdominal pain. He does not smoke or drink alcohol to excess and denies a prior history of peptic ulcer disease. He has no reflux symptoms at home and does not use a proton pump inhibitor. PAST MEDICAL HISTORY: 1. Atrial fibrillation. 2. Hypertension. 3. Hyperlipidemia. 4. COPD. 5. Coronary artery disease with history of coronary artery bypass grafting in the remote past. 6. Aortic aneurysm. CURRENT MEDICATIONS: Aspirin, atorvastatin, Symbicort, vitamin D, diltiazem, dutasteride, fenofibrate, fluticasone, furosemide, lisinopril, metoprolol, Xarelto. The last dose of Xarelto was yesterday at 5 p.m. ALLERGIES: NONE. FAMILY HISTORY: This is reviewed with the patient and is negative for GI malignancy. SOCIAL HISTORY: He does not smoke. He occasionally drinks alcohol. 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 REVIEW OF SYSTEMS: SKIN: No pruritus. HEENT: Negative. CARDIOPULMONARY: No shortness of breath or chest pain. GASTROINTESTINAL: As above. GENITOURINARY: Negative. NEUROPSYCHIATRIC: Negative. PHYSICAL EXAMINATION: GENERAL: Shows a pleasant male, lying comfortably in bed, receiving a blood transfusion. VITAL SIGNS: Stable. SKIN: Anicteric. HEENT: Shows no scleral icterus. NECK: Without lymphadenopathy or thyromegaly. LUNGS: Show some fine crackles. HEART: Shows an irregular S1, S2. No murmur. ABDOMEN: Soft without focal masses or tenderness. Bowel sounds are present. No organomegaly is noted. EXTREMITIES: Without edema. LABORATORY DATA: Shows a white blood cell count of 5.2, hematocrit 19, MCV 86.8, iron saturation 5%. IMPRESSION: Acute blood loss anemia with Hemoccult-positive stools. This appears most consistent with an upper GI bleed given the patient's history. I would recommend upper endoscopy for further evaluation. This will be deferred until tomorrow as the patient has taken Xarelto within the last 24 hours. If his upper endoscopy is nondiagnostic, I would consider repeat colonoscopy, although I think a lower GI source for blood loss is less likely as he has undergone routine screening colonoscopy with polypectomy by his report within the last 3 years. I agree with treating him with a proton pump inhibitor and transfusing him. Continue to hold Xarelto and aspirin until further evaluation is done. Thanks for asking me to see him. I will follow him in the hospital with you. MD JACQUELINE Biswas/PADILLA / [phone]
--- NOTE | 2022-01-17 19:12 | PC.NURSE ---
assumed care at approx 01/17/22 190
[2022-01-17 21:45] LABS: Hematocrit 24.5 % (42.0-52.0); Hemoglobin 7.5 g/dl (14.0-18.0)
--- NOTE | 2022-01-17 22:01 | MHC.SHP ---
Pre-Procedural Eval Section A Date of Service: 01/17/22 The patient is an INPATIENT: Yes Changes since office visit: No Cold of Flu in the past 2 weeks, No New Medical Problems, No Changes in Medication and No Patient answered all questions The History & Physical has been completed within 30 days and I have reviewed it.: Yes Section B Chief Complaint: Abnormal labs Allergies: Allergies Allergy/AdvReac Type Severity Reaction Status Date / Time No Known Allergies Allergy Verified 01/17/22 11:19 Plan I have reviewed the history and physical and performed a pertinent physical examination on my patient. No changes have occurred unless specified.
[2022-01-17] MEDS: Phytonadione (Vit K1) 10 MG in 0.9 % Sodium Chloride 50 ML 51 MG IV (22:42)
--- NOTE | 2022-01-17 22:47 | PC.NURSE ---
Patient's hgb 7.5 post 2 units of blood. Per hospitalist, patient is going to get a 3rd unit of blood. Patient ordered vitaminK which will be given before the 3rd unit per hospitalist. Patient also has protonix ordered as well which will be given once vitamin K is done.
--- NOTE | 2022-01-17 22:48 | PC.NURSE ---
administered medication per MAR
[2022-01-18] VITALS (13 sets, daily range): BP systolic 98–124; BP diastolic 45–65; PULSE 81–99; RESP 12–24; TEMP 36.2–36.9; O2SAT 90–99; BMI 27.6
--- NOTE | 2022-01-18 00:28 | PM.EVENT ---
Event Note Date of Service: 01/18/22 Event Note: pt received 2 units of pRBC. awaiting 3rd unit of pRBC. no active bleed but appears in pulmonary congestion on auscultation. will give 1 dose of Iv lasix
[2022-01-18] MEDS: 0.9 % Sodium Chloride Flush 3 ML SYRINGE IVFLUSH ×2 (00:48→09:31)
[2022-01-18] MEDS: Furosemide 40 MG/4 ML VIAL IVPUSH (00:49)
--- NOTE | 2022-01-18 00:53 | PC.NURSE ---
Hospitalist notified that patient's lungs sounded wet. Patient had increased cough with wheezing and hx of CHF. Hospitalist assessed patient and ordered Lasix 40 mg. Chest xray ordered.
--- NOTE | 2022-01-18 02:44 | PC.NURSE ---
Patient ambulated to the bathroom with steady gait.
[2022-01-18 04:32] LABS: Hematocrit 27.9 % (42.0-52.0); Hemoglobin 8.7 g/dl (14.0-18.0); Mean Corpuscular HGB Conc 31.2 g/dl (31.0-36.0); Mean Corpuscular Volume 86.6 fL (80.0-98.0); Mean Platelet Volume 10.5 fL (9.4-12.4); Platelet Count 233 X10*3/uL (160-400); Red Blood Count 3.22 X10*6/uL (4.60-5.80); Red Cell Distribution Width 19.3 % (11.0-16.0); White Blood Count 8.7 X10*3/uL (4.8-10.8)
[2022-01-18 04:38] LABS: INTERNATIONAL NORM RATIO 1.6 (0.9-1.1); Prothrombin Time 18.2 SEC (10.0-13.1)
[2022-01-18 04:49] LABS: Anion Gap 15 (12-20); Blood Urea Nitrogen 19 mg/dL (9-16); Calcium 8.2 mg/dL (8.4-10.2); Carbon Dioxide 19 mmol/L (22-29); Chloride 110 mmol/L (96-108); Creatinine Clr Calc Pharmacy 91.6; Estimated Glomerular Filt Rate > 60; Glucose Random 124 mg/dL (60-115); Potassium 4.6 mmol/L (3.3-5.1); Sodium 139 mmol/L (135-145)
--- NOTE | 2022-01-18 07:23 | P.CONAN_ITS ---
[facility] Active Problems Active Problems: All Active Problems (Updated 01/17/22 @ 12:24 by Florence Becker DO) Acute blood loss anemia (Acute) Acute upper gastrointestinal bleeding (Acute) Past Medical History Medical History Afib CAD (coronary artery disease) COPD (chronic obstructive pulmonary disease) Hyperlipidemia Nasal sinus tumor Functional capacity: independent ambulation Family History Family history of problems with anesthesia: No Surgical History Surgical History Hx of CABG History of Problems with Anesthesia: No Social History Social History Alcohol intake: current Alcohol intake frequency: 0-2 drinks per day Alcohol type: wine Patient Tobacco Use Status: Never used Tobacco Use of substances other than those prescribed or required for medical reasons: No Advance Directives: No Meds Allergies Allergy/AdvReac Type Severity Reaction Status Date / Time No Known Allergies Allergy Verified 01/17/22 11:19 Active Medications: Current Medications Acetaminophen (Acetaminophen 325 Mg Tablet) 650 mg PO Q6H PRN PRN Reason: Pain, Mild (Pain Scale 1-3) Furosemide (Furosemide 40 Mg Tablet) 40 mg PO DAILY [facility]; Protocol Pantoprazole Sodium 80 mg/ (Sodium Chloride) 100 mls @ 10 mls/hr IV .Q10H [facility] Last Admin: 01/17/22 22:52 Dose: 8 mg/hr, 10 mls/hr Ondansetron HCl (Ondansetron Hcl 4 Mg/2 Ml Vial) 4 mg IVPUSH Q8H PRN PRN Reason: Nausea and Vomiting Pharmacy Consult (Consult Rx Perform Med Rec) 1 each MISCELLANE ONCE PRN PRN Reason: Consult order Sodium Chloride (0.9 % Sodium Chloride Flush 3 Ml Syringe) 3 ml IVFLUSH QSHIFT [facility] Last Admin: 01/18/22 00:48 Dose: 3 ml Home Medications Medication Instructions Recorded Confirmed Last Taken Type aspirin 81 mg chewable tablet 81 mg PO DAILY 01/17/22 01/17/22 01/17/22 History atorvastatin 40 mg tablet 1 tab PO BEDTIME 01/17/22 01/17/22 01/16/22 History budesonide-formoterol HFA 160 1 puff PO BID 01/17/22 01/17/22 01/17/22 History mcg-4.5 mcg/actuation aerosol inhaler (Symbicort) cholecalciferol (vitamin D3) 125 125 mcg PO DAILY 01/17/22 01/17/22 01/17/22 History mcg (5,000 unit) tablet (Vitamin D3) diltiazem HCl 240 mg capsule,24 1 cap PO DAILY 01/17/22 01/17/22 01/17/22 History hr,extended release dutasteride 0.5 mg capsule 1 cap PO BEDTIME 01/17/22 01/17/22 01/16/22 History fenofibrate nanocrystallized 145 1 tab PO DAILY 01/17/22 01/17/22 01/17/22 History mg tablet fluticasone propionate 50 1 spray intranasal DAILY PRN 01/17/22 01/17/22 01/17/22 History mcg/actuation nasal Allergy Symptoms spray,suspension furosemide 40 mg tablet 1 tab PO DAILY 01/17/22 01/17/22 01/16/22 History guaifenesin 1,200 mg tablet, 1,200 mg PO BID PRN Cough 01/17/22 01/17/22 01/17/22 History extended release 12 hr (Mucinex) lisinopril 20 mg tablet 1 tab PO DAILY 01/17/22 01/17/22 01/17/22 History metoprolol succinate 100 mg 1 tab PO DAILY 01/17/22 01/17/22 01/17/22 History tablet,extended release 24 hr rivaroxaban 20 mg tablet (Xarelto) 1 tab PO BEDTIME 01/17/22 01/17/22 01/16/22 History Exam Exam Date and Time: January 18, 2022722 Height,Weight and Vital Signs: Height 5 ft 11 in Weight 89.811 kg Last Vital Signs Temp 97.6 F 01/18/22 07:06 Pulse 90 01/18/22 07:06 Resp 24 H 01/18/22 07:06 BP 124/63 01/18/22 07:06 Pulse Ox 96 01/18/22 07:06 O2 Del Method 01/18/22 07:06 O2 Flow Rate 2 01/18/22 07:06 Pertinent Lab Results Pertinent Lab Results: Laboratory Tests 01/17/22 01/17/22 01/17/22 11:31 11:31 11:35 WBC RBC Hgb Hct MCV MCH MCHC RDW Plt Count MPV Absolute Nucleated RBC Nucleated RBC % (auto) PT 26.9 H INR 2.3 H APTT 39.1 H Sodium Potassium Chloride Carbon Dioxide Anion Gap BUN Creatinine Estim Creat Clear Calc Estimated GFR Random Glucose Calcium Magnesium Total Bilirubin Direct Bilirubin AST ALT Alkaline Phosphatase Troponin I High Sens Total Protein Albumin Stool Occult Blood POSITIVE COVID-19 ([facility]) Negative COVID-19 Clin Com See Note Blood Type Antibody Screen Crossmatch 01/17/22 01/17/22 01/17/22 11:35 11:35 11:49 WBC RBC Hgb Hct MCV MCH MCHC RDW Plt Count MPV Absolute Nucleated RBC Nucleated RBC % (auto) PT INR APTT Sodium 137 Potassium 4.1 Chloride 108 Carbon Dioxide 24 Anion Gap 9 L BUN 20 H Creatinine 0.86 Estim Creat Clear Calc 77.8 Estimated GFR > 60 Random Glucose 126 H Calcium 8.5 Magnesium 1.9 Total Bilirubin 0.8 Direct Bilirubin 0.5 AST 19 ALT 7 Alkaline Phosphatase 34 L D Troponin I High Sens 8.8 Total Protein 5.8 L Albumin 3.3 L Stool Occult Blood COVID-19 ([facility]) COVID-[employer] Com Blood Type O Positive Antibody Screen NEGATIVE Crossmatch See Detail 01/17/22 01/17/22 01/18/22 13:36 21:36 04:16 WBC 5.2 RBC 2.19 L Hgb 5.6 L* 7.5 L D Hct 19.0 L* 24.5 L D MCV 86.8 MCH 25.6 L MCHC 29.5 L RDW 21.0 H Plt Count 221 MPV 9.5 Absolute Nucleated RBC 0.000 Nucleated RBC % (auto) 0.0 PT 18.2 H INR 1.6 H APTT Sodium Potassium Chloride Carbon Dioxide Anion Gap BUN Creatinine Estim Creat Clear Calc Estimated GFR Random Glucose Calcium Magnesium Total Bilirubin Direct Bilirubin AST ALT Alkaline Phosphatase Troponin I High Sens Total Protein Albumin Stool Occult Blood COVID-19 ([facility]) COVID-19 [employer] Com Blood Type Antibody Screen Crossmatch 01/18/22 01/18/22 04:16 04:16 WBC 8.7 RBC 3.22 L D Hgb 8.7 L Hct 27.9 L MCV 86.6 MCH 27.0 MCHC 31.2 RDW 19.3 H Plt Count 233 MPV 10.5 Absolute Nucleated RBC 0.000 Nucleated RBC % (auto) 0.0 PT INR APTT Sodium 139 Potassium 4.6 Chloride 110 H Carbon Dioxide 19 L Anion Gap 15 BUN 19 H Creatinine 0.73 Estim Creat Clear Calc 91.6 Estimated GFR > 60 Random Glucose 124 H Calcium 8.2 L Magnesium Total Bilirubin Direct Bilirubin AST ALT Alkaline Phosphatase Troponin I High Sens Total Protein Albumin Stool Occult Blood COVID-19 ([facility]) COVID-19 Clin Com Blood Type Antibody Screen Crossmatch Airway Mallampati Class: II TM Dist: >3cm Denture: Upper Heart: irreg. Lungs: randachi bl. Assessment and Plan Final Anesthetic Review Family History of Problems with Anesthesia: No History of Problems with Anesthesia: No ASA Class: III Final Preanesthetic Review: No Changes in Pt Med Stat, Meds/Allgs Chart Reviewed, Consent Obtained/Reviewed and Anes Risks/Benef Reviewed Patient Risk: Intermediate Procedure Risk: Low Anesthetic Plan Anesthetic Plan: MAC: Disposition: Standard PACU
--- NOTE | 2022-01-18 07:53 | PM.EVENT ---
Event Note Date of Service: 01/18/22 Event Note: EGD antral gastritis without bleeding biopsies obtained rec: hold asa x 1 week ok to restart Xarelto advance diet bid ppi x 1 month then daily indefinitely.
--- NOTE | 2022-01-18 08:49 | HO.POSTANES ---
Post Anesthesia Evaluation Post Anesthesia Evaluation Vital Signs: Vital Signs Temp Pulse Resp BP Pulse Ox O2 Del Method O2 Flow Rate 01/18/22 08:13 98.3 F 97 20 100/56 L 97 Nasal Cannula 2 01/18/22 07:57 98.3 F 99 22 H 99/49 L 94 Nasal Cannula 2 01/18/22 07:06 97.6 F 90 24 H 124/63 96 Nasal Cannula 2 01/18/22 02:08 97.4 F 89 20 113/59 L 01/18/22 00:57 93 23 H 105/58 L 90 L Room Air 01/18/22 00:41 97.1 F 95 15 100/48 L Anesthesia: Monitored Mental Status: Awake Pain Control: Satisfactory Nausea/Vomiting: None Hydration: Adequate Anesthesia-Related Issues: No Anes. Related Issues
[2022-01-18] MEDS: Furosemide 40 MG TABLET PO (09:30)
--- NOTE | 2022-01-18 09:37 | MHC.CM.PN ---
CM met with Patient at bedside and addressed IMM with him, providing him with the original and placing a copy on the chart. Patient lives in a house with his and he required no DME nor services [employer]. Home/no services is the goal and CM has initiated and will follow for dc planning. Patient has received Pfizer vax x3 and PCP is Dr. Darek Ronquillo.
--- NOTE | 2022-01-18 10:08 | PC.NURSE ---
pt sitting in chair eating breakfast
--- NOTE | 2022-01-18 10:26 | PC.NURSE ---
plan for dc, pt eating breakfast at this time. md koo down to see pt. denied having any questions.
--- NOTE | 2022-01-18 13:24 | PC.NURSE ---
RN aware POC [id number]
--- NOTE | 2022-01-18 13:28 | PM.DS ---
DS: Providers Provider Date of Service: 01/18/22 Date of admission: 01/17/22 16:05 Primary care physician: Darek Ronquillo MD DS: Diagnosis Discharge Diagnosis (1) Acute blood loss anemia: Status: Acute (2) Acute upper gastrointestinal bleeding: Status: Acute (3) Gastritis: Status: Acute (4) Hypotension: Status: Acute DS: Summary Hospital Course Hospital Course: HPI 'This is a 76-year-old male with a past medical history of CAD status post CABG more than 20 years ago, atrial fibrillation diagnose more than 10 years ago not on anticoagulation up until 2 weeks ago, on aspirin, hypertension hyperlipidemia, others as listed below who presented the [facility] ED after he was advised to do so by his primary care provider for abnormal labs.? Apparently the patient had lab work completed as an outpatient yesterday due to complaints of generalized weakness and leg cramps/weakness where he was noted to be significantly anemic.? Hence he was advised to come to the emergency room.? H&H in the emergency room repeated showed a value of 5.6/19.? He was hypotensive with systolic blood pressures in 90s.? His occult blood was positive.? 3 units of packed red cells have been ordered, he has been started on IV Protonix and will now be admitted for workup and treatment of suspected upper GI bleed. The patient himself reports that for the last several weeks he has had generalized weakness and fatigue with associated dizziness, particularly when standing from seated to supine position.? He denies any syncopal episodes.? He denies any chest pain or shortness of breath.? He reports that he has noticed dark colored stools occurring over the last several weeks.? He is unsure if these were occurring prior to initiation of Xarelto.? He denies any abdominal pain, nausea, vomiting.? He does report to a decreased appetite and a 60 lb weight loss in the last 1 year. Hospital Course: Patient was given 2 L of intravenous fluids and 3 units of packed red cells. He was treated with IV Protonix drip. He was evaluated by Gastroenterology and underwent an urgent upper endoscopy which showed mild gastritis without any bleeding. Gastroenterology recommended holding his aspirin for 1 week and cleared him for resumption of his Xarelto. In regards to the patient's antihypertensive/rate control drugs, the patient is on Toprol 100 mg daily as well as Cardizem 240 sustained release, and lisinopril twice daily. His blood pressure has been on the lower side but he remains without any symptoms. His orthostatic vitals are negative. He has been ambulated prior to discharge and does not have any dizziness or gait issues. After detailed discussion with the patient as well as his about his antihypertensive/rate control regimen, decision has been made to hold all antihypertensives and decrease his metoprolol from 100 mg to 25 mg daily. He is to follow up with his PCP within 1 week at which point if stable, the antihypertensives may be increased to their baseline dose. If the patients anemia does not improve on iron replacement, he may need further work up with a capsule endoscopy. Time Spent with Patient Time attestation: Total time spent providing and/or coordinating discharge services: Discharge coordination time: Greater than 30 minutes Quality: Safe Use of Opioids Does Pt have an Active Cancer Diagnosis on the Problem List?: No Quality: Stroke Does the patient have a stroke diagnosis?: No Physical Exam Vital Signs: Vital Signs: Last Vital Signs Temp 97.6 F 01/18/22 11:40 Pulse 81 01/18/22 11:40 Resp 20 01/18/22 11:40 BP 99/45 L 01/18/22 11:40 Pulse Ox 95 01/18/22 11:40 O2 Del Method 01/18/22 11:40 O2 Flow Rate 2 01/18/22 08:13 BMI result Body Mass Index 27.6 Const: Other: General - no acute distress, appears comfortable Cardiovascular - regular rate and rhythm, S1-S2 Lungs - normal respiratory effort, clear to auscultation bilaterally, no wheezing Abdomen - soft, nontender, no rebound or guarding Extremities - no edema bilaterally Neuro - awake and alert, no focal deficits DS: Data Data Completed and Pending Pending studies at discharge: Pending at discharge 01/18/22 07:47 Surgical [PTH] Routine Labs on day of discharge: Laboratory Results - last 24 hr 01/17/22 01/17/22 01/17/22 11:49 13:36 21:36 WBC 5.2 RBC 2.19 L Hgb 5.6 L* 7.5 L D Hct 19.0 L* 24.5 L D MCV 86.8 MCH 25.6 L MCHC 29.5 L RDW 21.0 H Plt Count 221 MPV 9.5 Absolute Nucleated RBC 0.000 Nucleated RBC % (auto) 0.0 PT INR Sodium Potassium Chloride Carbon Dioxide Anion Gap BUN Creatinine Estim Creat Clear Calc Estimated GFR Random Glucose Calcium Blood Type O Positive Antibody Screen NEGATIVE Crossmatch See Detail 01/18/22 01/18/22 01/18/22 04:16 04:16 04:16 WBC 8.7 RBC 3.22 L D Hgb 8.7 L Hct 27.9 L MCV 86.6 MCH 27.0 MCHC 31.2 RDW 19.3 H Plt Count 233 MPV 10.5 Absolute Nucleated RBC 0.000 Nucleated RBC % (auto) 0.0 PT 18.2 H INR 1.6 H Sodium 139 Potassium 4.6 Chloride 110 H Carbon Dioxide 19 L Anion Gap 15 BUN 19 H Creatinine 0.73 Estim Creat Clear Calc 91.6 Estimated GFR > 60 Random Glucose 124 H Calcium 8.2 L Blood Type Antibody Screen Crossmatch Discharge Plan Discharge Patient Disposition: Home, Self-Care Discharge Diagnosis: Anemia Gi Bleed Referrals: Darek Ronquillo MD [Primary Care Provider] - 1 Week Discharge Medications: New metoprolol succinate 25 mg tablet extended release 24 hr 12.5 mg PO DAILY Qty: 30 0RF omeprazole 20 mg capsule,delayed release(DR/EC) 20 mg PO BID 30 Days Qty: 60 0RF ferrous sulfate 325 mg (65 mg iron) tablet 325 mg PO BID Qty: 60 0RF Continued atorvastatin 40 mg tablet 1 tab PO BEDTIME dutasteride 0.5 mg capsule 1 cap PO BEDTIME fenofibrate nanocrystallized 145 mg tablet 1 tab PO DAILY budesonide-formoterol [Symbicort] 160-4.5 mcg/actuation HFA aerosol inhaler 1 puff PO BID Xarelto 20 mg tablet 1 tab PO BEDTIME fluticasone propionate 50 mcg/actuation Sadorus,Suspension 1 spray INTRANASAL DAILY PRN (Reason: Allergy Symptoms) Rx Instructions: administer into each nostril Mucinex 1,200 mg Tablet Extended Release 12hr 1,200 mg PO BID PRN (Reason: Cough) cholecalciferol (vitamin D3) [Vitamin D3] 125 mcg (5,000 unit) Tablet 125 mcg PO DAILY Held furosemide 40 mg tablet 1 tab PO DAILY Hold Instructions: Resume on 01/25/22. lisinopril 20 mg tablet 1 tab PO DAILY Hold Instructions: Resume on 01/25/22. Follow up with PCP before restarting diltiazem HCl 240 mg capsule,extended release 24 hr 1 cap PO DAILY Hold Instructions: Resume on 01/25/22. hold until seen by pcp aspirin 81 mg Tablet,Chewable 81 mg PO DAILY Hold Instructions: Resume on 01/25/22. Discontinued metoprolol succinate 100 mg tablet extended release 24 hr 1 tab PO DAILY Discharge Orders: Discharge Order (Routine); Ordered 01/18/22 Ordered By: Vijay Shell Diet: Advance to usual diet Activity on Discharge: As tolerated Stand Alone Forms: Patient Portal Discharge page Care Plan Goals: To stay healthy and out of the hospital. Health Concerns: Anemia Gastritis Plan of Treatment: Take Prilosec 20mg twice a day for 1 month, after that take it once a day hold you aspirin for 1 week You may restart your xarelto In regards to you blood pressure -- it is on the lower side. Do not take Lisinopril or Diltiazem. You metoprolol dose has been decreased to 25mg daily. Assessment: see d/c summary
--- NOTE | 2022-01-18 13:31 | OP_ITS ---
SURGEON: Soren Boothe MD INDICATIONS: Upper GI bleeding. PREOPERATIVE DIAGNOSIS: POSTOPERATIVE DIAGNOSIS: PROCEDURE PERFORMED: Upper endoscopy with biopsy. ESTIMATED BLOOD LOSS: COMPLICATIONS: ANESTHESIA: ASSISTANTS: SPECIMENS: MEDICATIONS: Monitored anesthesia care. DESCRIPTION OF PROCEDURE: History and physical were performed. The risks and benefits of the procedure were explained to the patient. Informed consent was obtained. The patient was placed in left lateral decubitus position. The Olympus video gastroscope was introduced into the esophagus, stomach, and duodenum. Examination was performed and the scope was removed. He tolerated the procedure well and was returned to recovery area in stable condition. FINDINGS: Esophagus: The esophagus was normal. There was a small area suspicious for Evans esophagus, 1 cm above the EG junction. There was no esophagitis. Stomach: Stomach showed no evidence of masses or ulcers. There was antral gastritis with linear erosions in the pre-pyloric area. There was no bleeding. Duodenum: The bulb and second portion were normal. Biopsies were obtained from the antrum to evaluate for H pylori. IMPRESSION: Antral gastritis. RECOMMENDATION: Follow up the biopsy results. MD JACQUELINE Biswas/PADILLA / [id number]
--- NOTE | 2022-01-18 13:34 | MHC.CM.PN ---
Patient has been medically cleared for dc to home today, self care. IMM addressed this morning.
== END 2022-01-18 14:05 | disposition home or self-care (01) | DRG 378 ==
LOC: HO.ED 12:24 → HO.EDOVER 16:14
PROVIDERS: Internal Medicine; Internal Medicine Gastroenterology; Admitting Provider Family Medicine; Emergency Provider Emergency Medicine; PCP Internal Medicine; Visit Provider Family Medicine
PROC: 0DJ08ZZ Inspection of Upper Intestinal Tract, Via Natural or Artificial Opening Endoscopic (ICD-10-PCS; CPT 43235; principal; 2022-01-18 07:30)
DX: K29.71 Gastritis, unspecified, with bleeding (principal); D62 Acute posthemorrhagic anemia; I95.9 Hypotension, unspecified; I10 Essential (primary) hypertension; I25.10 Atherosclerotic heart disease of native coronary artery without angina pectoris; E78.5 Hyperlipidemia, unspecified; J44.9 Chronic obstructive pulmonary disease, unspecified; Z20.822 Contact with and (suspected) exposure to COVID-19; Z95.1 Presence of aortocoronary bypass graft; Z79.01 Long term (current) use of anticoagulants; Z79.82 Long term (current) use of aspirin; Z79.899 Other long term (current) drug therapy
CPT/HCPCS: 36415; 36430; 71045; 80048; 80076; 82272; 83735; 84484; 85014; 85018; 85027; 85610; 85730; 86850; 86900; 86901; 86923; 87635; 88305; 88342; 93005; 96365; 96366; 96375; 99285; J0171; J1940; J3430; P9016

== ENCOUNTER 2022-01-24 11:04 | Outpatient (REF) | payer MEDICARE, SELFPAY ==
[2022-01-24 11:20] LABS: MANUAL DIFF FLAG NO
[2022-01-24 12:01] LABS: Basophils Percent Auto 0.7 % (0-2); Eosinophils Absolute Auto 0.1 X10*3/uL (0.0-0.4); Eosinophils Percent Auto 1.1 % (0-4); Hemoglobin 8.9 g/dl (14.0-18.0); Imm Gran Abs Auto 0.02 X10*3/uL (0.00-0.03); Imm Gran Pct Auto 0.4 % (0.0-0.4); Lymphocytes Absolute Auto 1.4 X10*3/uL (1.2-4.9); Lymphocytes Percent Auto 25.7 % (20-40); Mean Corpuscular HGB Conc 30.7 g/dl (31.0-36.0); Mean Corpuscular Hemoglobin 28.1 pg (27.0-33.0); Mean Corpuscular Volume 91.5 fL (80.0-98.0); Mean Platelet Volume 10.5 fL (9.4-12.4); Monocytes Absolute Auto 0.7 X10*3/uL (0.1-1.2); Monocytes Percent Auto 12.7 % (2-11); Neutrophils Absolute Auto 3.2 x10*3/uL (2.0-8.3); Neutrophils Percent Auto 59.4 % (45-73); Platelet Count 261 X10*3/uL (160-400); Red Blood Count 3.17 X10*6/uL (4.60-5.80); Red Cell Distribution Width 22.8 % (11.0-16.0); White Blood Count 5.3 X10*3/uL (4.8-10.8)
[2022-01-24 12:30] LABS: Iron 34 mcg/dL (45-160); Percent Iron Saturation 7 % (15-50); Total Iron Binding Capacity 503 mcg/dL (228-428); Unsaturated Iron Binding 469 ug/dL
== END 2022-01-24 11:05 | disposition home or self-care (01) ==
LOC: HO.LAB 11:04
PROVIDERS: PCP Internal Medicine; Visit Provider Internal Medicine
DX: D64.9 Anemia, unspecified (principal)
CPT/HCPCS: 36415; 83540; 85025

== ENCOUNTER 2022-01-25 15:15 | Outpatient (REF) | payer MEDICARE, SELFPAY ==
--- NOTE | ~2022-01-25 | US_ITS ---
EXAMINATION: US VENOUS ULTRASOUND WITH DOPPLER LOWER EXTREMITY, RIGHT CLINICAL INFORMATION: Right leg swelling and pain COMPARISON: None TECHNIQUE: Ultrasound of the deep veins is performed from the hip to the calf with compression sonography and color and pulse Doppler assessment. Spectral analysis with color-flow imaging is performed. FINDINGS: There is normal venous compression and respiratory variation and augmented flow. The visualized common femoral vein, superficial femoral vein, profunda femoral vein, popliteal vein, and the trifurcation region shows no evidence of deep venous thrombosis. There is no significant popliteal fossa cyst. If the patient's symptoms persist, followup ultrasound in 5 days 7 days might be of value to exclude proximal propagation from a non-visualized calf vein. US/US venous duplex LE RT IMPRESSION: No DVT demonstrated in the right lower extremity.
[2022-01-25 16:31] LABS: Anion Gap 10 (12-20); Blood Urea Nitrogen 12 mg/dL (9-16); C Reactive Protein 1.91 mg/dL (< or = 0.50); Calcium 8.6 mg/dL (8.4-10.2); Carbon Dioxide 28 mmol/L (22-29); Chloride 104 mmol/L (96-108); Estimated Glomerular Filt Rate > 60; Glucose Random 105 mg/dL (60-115); Potassium 3.6 mmol/L (3.3-5.1); Sodium 138 mmol/L (135-145)
[2022-01-25 17:32] LABS: Uric Acid 7.3 mg/dL (3.4-7.0)
== END 2022-01-25 15:16 | disposition home or self-care (01) ==
LOC: HO.US 15:15
PROVIDERS: PCP Internal Medicine; Visit Provider Internal Medicine
DX: R60.0 Localized edema (principal)
CPT/HCPCS: 36415; 80048; 84550; 86140; 93971

== ENCOUNTER 2022-02-01 11:06 | Outpatient (REF) | payer MEDICARE, SELFPAY ==
[2022-02-01 11:22] LABS: MANUAL DIFF FLAG NO
[2022-02-01 12:19] LABS: Basophils Percent Auto 0.3 % (0-2); Eosinophils Percent Auto 0.2 % (0-4); Hematocrit 32.6 % (42.0-52.0); Hemoglobin 9.8 g/dl (14.0-18.0); Imm Gran Abs Auto 0.04 X10*3/uL (0.00-0.03); Imm Gran Pct Auto 0.4 % (0.0-0.4); Lymphocytes Percent Auto 20.1 % (20-40); Mean Corpuscular HGB Conc 30.1 g/dl (31.0-36.0); Mean Corpuscular Hemoglobin 27.6 pg (27.0-33.0); Mean Corpuscular Volume 91.8 fL (80.0-98.0); Mean Platelet Volume 10.5 fL (9.4-12.4); Monocytes Absolute Auto 1.2 X10*3/uL (0.1-1.2); Monocytes Percent Auto 11.9 % (2-11); Neutrophils Absolute Auto 6.5 x10*3/uL (2.0-8.3); Neutrophils Percent Auto 67.1 % (45-73); Platelet Count 252 X10*3/uL (160-400); Red Blood Count 3.55 X10*6/uL (4.60-5.80); Red Cell Distribution Width 22.9 % (11.0-16.0); White Blood Count 9.7 X10*3/uL (4.8-10.8)
[2022-02-01 12:48] LABS: Alanine Aminotransferase 8 U/L (0-40); Albumin Level 3.5 g/dL (3.5-5.0); Alkaline Phosphatase 34 U/L (39-117); Anion Gap 11 (12-20); Aspartate Amino Transferase 16 U/L (5-37); Blood Urea Nitrogen 20 mg/dL (9-16); Calcium 8.7 mg/dL (8.4-10.2); Carbon Dioxide 27 mmol/L (22-29); Chloride 104 mmol/L (96-108); Estimated Glomerular Filt Rate > 60; Glucose Random 100 mg/dL (60-115); Potassium 4.1 mmol/L (3.3-5.1); Sodium 138 mmol/L (135-145); Total Protein 6.1 g/dL (6.5-8.0)
[2022-02-01 12:52] LABS: B Type Natriuretic Peptide 744 pg/mL (<100)
== END 2022-02-01 11:07 | disposition home or self-care (01) ==
LOC: HO.LAB 11:06
PROVIDERS: PCP Internal Medicine; Visit Provider Internal Medicine
DX: D64.9 Anemia, unspecified (principal)
CPT/HCPCS: 36415; 80053; 83880; 85025

== ENCOUNTER 2022-02-05 18:32 | Inpatient (IN) | payer MEDICARE, SELFPAY ==
--- NOTE | ~2022-02-05 | XR_ITS ---
EXAMINATION: XR ANKLE, RIGHT CLINICAL INFORMATION: This is a 76-year-old female with right ankle pain. COMPARISON: Comparison is made to the left ankle study dated 01/16/2022. TECHNIQUE: AP, lateral, and mortise views of the right ankle. FINDINGS: There is soft tissue swelling adjacent to the lateral malleolus. There are tram track calcifications in the soft tissues consistent with atherosclerotic disease. There is also swelling anterior and along the dorsum of the foot which is diffuse and nonspecific. Osteophytes are seen adjacent to the medial and lateral malleolus. There are subchondral cysts present. The ankle mortise appears intact. There is a mildly prominent calcaneal spur present. XR/XR ankle RT 2V IMPRESSION: 1. Nonspecific soft tissue swelling adjacent to the ankle. 2. 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 No acute fracture is seen. If a fracture still suspected then a CT scan to the ankle would be helpful.
--- NOTE | ~2022-02-05 | US_ITS ---
EXAMINATION: US VENOUS ULTRASOUND WITH DOPPLER LOWER EXTREMITY, RIGHT CLINICAL INFORMATION: Swelling with question of DVT COMPARISON: None TECHNIQUE: Ultrasound of the deep veins is performed from the hip to the calf with compression sonography and color and pulse Doppler assessment. Spectral analysis with color-flow imaging is performed. FINDINGS: There is normal venous compression and respiratory variation and augmented flow. The visualized common femoral vein, superficial femoral vein, profunda femoral vein, popliteal vein, and the trifurcation region shows no evidence of deep venous thrombosis. There is no significant popliteal fossa cyst. Incidental note made of severe peripheral vascular disease which can be seen on the prior PET/CT from 05/17/2020 with probable occlusive calcification in the right SFA as well as the right profunda. Severe arterial disease could also be seen on the left... If the patient's symptoms persist, followup ultrasound in 5 days 7 days might be of value to exclude proximal propagation from a non-visualized calf vein. US/US venous duplex LE RT IMPRESSION: No DVT demonstrated in the right lower extremity. Again seen is evidence of severe peripheral arterial disease as described above
--- NOTE | ~2022-02-05 | XR_ITS ---
EXAMINATION: XR CHEST CLINICAL INFORMATION: Edema COMPARISON: 01/18/2022 TECHNIQUE: 2 views of the chest were obtained. FINDINGS: Again seen is cardiomegaly and median sternotomy. Compared to the prior study, there's been improvement in the interstitial prominence previously seen suggesting improved CHF. Tiny pleural effusions may be present. No focal consolidations or lung masses. XR/XR chest 2V IMPRESSION: Improving CHF. No acute intrathoracic disease.
[2022-02-05 19:33] VITALS: BP 123/74; PULSE 126; RESP 18; TEMP 37.2; O2SAT 96; BMI 27.7
[2022-02-05 20:10] LABS: MANUAL DIFF FLAG NO
[2022-02-05 20:11] LABS: Basophils Percent Auto 0.3 % (0-2); Eosinophils Percent Auto 0.3 % (0-4); Hematocrit 34.4 % (42.0-52.0); Hemoglobin 10.5 g/dl (14.0-18.0); Imm Gran Abs Auto 0.06 X10*3/uL (0.00-0.03); Imm Gran Pct Auto 0.6 % (0.0-0.4); Lymphocytes Absolute Auto 1.5 X10*3/uL (1.2-4.9); Lymphocytes Percent Auto 14.3 % (20-40); Mean Corpuscular HGB Conc 30.5 g/dl (31.0-36.0); Mean Corpuscular Hemoglobin 27.8 pg (27.0-33.0); Mean Platelet Volume 10.2 fL (9.4-12.4); Monocytes Absolute Auto 1.3 X10*3/uL (0.1-1.2); Monocytes Percent Auto 13.1 % (2-11); Neutrophils Absolute Auto 7.3 x10*3/uL (2.0-8.3); Neutrophils Percent Auto 71.4 % (45-73); Platelet Count 258 X10*3/uL (160-400); Red Blood Count 3.78 X10*6/uL (4.60-5.80); Red Cell Distribution Width 22.5 % (11.0-16.0); White Blood Count 10.2 X10*3/uL (4.8-10.8)
[2022-02-05 20:23] LABS: Lactic Acid 1.2 mmol/L (0.5-2.0)
[2022-02-05 20:25] LABS: COVID-19 Test Negative (Negative)
[2022-02-05 20:27] LABS: Alanine Aminotransferase 10 U/L (0-40); Albumin Level 3.6 g/dL (3.5-5.0); Alkaline Phosphatase 48 U/L (39-117); Anion Gap 15 (12-20); Aspartate Amino Transferase 23 U/L (5-37); Bilirubin Total 1.1 mg/dL (0.0-1.0); Blood Urea Nitrogen 17 mg/dL (9-16); Calcium 8.8 mg/dL (8.4-10.2); Carbon Dioxide 24 mmol/L (22-29); Chloride 101 mmol/L (96-108); Creatinine Clr Calc Pharmacy 53.5; Estimated Glomerular Filt Rate 56; Glucose Random 112 mg/dL (60-115); Potassium 3.8 mmol/L (3.3-5.1); Sodium 136 mmol/L (135-145); Total Protein 6.4 g/dL (6.5-8.0)
[2022-02-05 20:33] LABS: B Type Natriuretic Peptide 817 pg/mL (<100)
[2022-02-05 21:34] VITALS: BP 143/72; PULSE 64; TEMP 36.6; O2SAT 95
--- NOTE | 2022-02-05 21:56 | ED_ITS ---
HPI - General Adult General Chief complaint: Extremity Injury, Lower Stated complaint: Cellulitis Sent By Dr Ronquillo Time Seen by Provider: 02/05/22 21:54 Source: patient and family ( spouse) Mode of arrival: ambulatory Limitations: no limitations History of Present Illness HPI narrative: 76-year-old male with past medical history significant for CAD s/p CABG over 20 years ago, AFib on Xarelto, HTN, hyperlipidemia. Patient came in for evaluation of gaining 12 lb of weight over a week with swelling in the lower extremities right more the left patient also complaining of severe pain in the lower extremities due to pain and swelling. Patient has no exertional dyspnea, no orthopnea, no PND. However patient stated that decrease mobility at home due to severe lower extremity swelling and pain. No trauma, no fever, no chills, patient takes Lasix daily which was increased to 60 mg daily for the past couple days as per PCP ordered. Also patient finish the taper course of prednisone prescribed by PCP. Patient was sent by Dr. Ronquillo for further evaluation of the persistent swelling and possible right lower extremities redness. Related Data Home Medications Medication Instructions Recorded Confirmed aspirin 81 mg chewable tablet 81 mg PO DAILY 01/17/22 01/17/22 atorvastatin 40 mg tablet 1 tab PO BEDTIME 01/17/22 01/17/22 budesonide-formoterol HFA 160 1 puff PO BID 01/17/22 01/17/22 mcg-4.5 mcg/actuation aerosol inhaler (Symbicort) cholecalciferol (vitamin D3) 125 125 mcg PO DAILY 01/17/22 01/17/22 mcg (5,000 unit) tablet (Vitamin D3) diltiazem HCl 240 mg capsule,24 1 cap PO DAILY 01/17/22 01/17/22 hr,extended release dutasteride 0.5 mg capsule 1 cap PO BEDTIME 01/17/22 01/17/22 fenofibrate nanocrystallized 145 1 tab PO DAILY 01/17/22 01/17/22 mg tablet fluticasone propionate 50 1 spray intranasal DAILY PRN 01/17/22 01/17/22 mcg/actuation nasal Allergy Symptoms spray,suspension furosemide 40 mg tablet 1 tab PO DAILY 01/17/22 01/17/22 guaifenesin 1,200 mg tablet, 1,200 mg PO BID PRN Cough 01/17/22 01/17/22 extended release 12 hr (Mucinex) lisinopril 20 mg tablet 1 tab PO DAILY 01/17/22 01/17/22 rivaroxaban 20 mg tablet (Xarelto) 1 tab PO BEDTIME 01/17/22 01/17/22 Previous Rx's Medication Instructions Recorded ferrous sulfate 325 mg (65 mg 325 mg PO BID #60 tabs 01/18/22 iron) tablet metoprolol succinate 25 mg 12.5 mg PO DAILY #30 tabs 01/18/22 tablet,extended release 24 hr omeprazole 20 mg capsule,delayed 20 mg PO BID 30 days #60 caps 01/18/22 release Allergies Allergy/AdvReac Type Severity Reaction Status Date / Time No Known Allergies Allergy Verified 02/05/22 19:33 Review of Systems Review of Systems: All other systems are reviewed and are negative Constitutional: Reports as per HPI and Reports no additional constitutional complaints Eyes: Reports as per HPI and Reports no additional eye complaints Reports system reviewed and no additional complaints, except as documented Cardiovascular: Reports as per HPI and Reports no additional cardiovascular complaints Respiratory: Reports as per HPI and Reports no additional respiratory complaints Gastrointestinal: Reports as per HPI and Reports no additional gastrointestinal complaints Genitourinary: Reports no additional female genitourinary complaints Musculoskeletal: Reports no additional musculoskeletal complaints Skin/Breast: Reports system reviewed and no additional complaints, except as docu Psychiatric: Reports no additional psychiatric complaints Endocrine: Reports no additional endocrine complaints Hematologic/Lymphatic: Reports no additional hematologic/lymphatic complaints Allergic/Immunologic: Reports no additional allergic/immunologic complaints Reports system reviewed and no additional complaints, except as documented and Reports Abnormal speech present [facility] Past Medical History Medical History Acute blood loss anemia Acute upper gastrointestinal bleeding Afib CAD (coronary artery disease) COPD (chronic obstructive pulmonary disease) Hyperlipidemia Nasal sinus tumor Surgical History Hx of CABG Social History Social History Alcohol intake: current Alcohol intake frequency: 0-2 drinks per day Alcohol type: wine Patient Tobacco Use Status: Never used Tobacco Advance Directives: No Advance Directives Information Provided: No service: Yes Current occupational status: retired Physical Exam ED Vital Signs: Vital Signs - 24 hr 02/05/22 19:33 02/05/22 21:34 Temperature 98.9 F 97.8 F Pulse Rate 126 H 64 Respiratory Rate 18 Blood Pressure 123/74 143/72 H Pulse Oximetry 96 95 Oxygen Delivery Method Room Air Room Air BMI result Body Mass Index 27.7 vital signs have been reviewed as appeared to be correct. Blood pressure normal. Heart rate normal. Respiration rate normal. Temperature normal. Oxygen saturation normal. Appearance: Alert. Oriented X3. No acute distress. Head: Normal external exam. Normocephalic. Atraumatic. No Andrews signs noted. No raccoon eyes noted Eyes: PERRLA. EOMI. Conjunctiva and sclera normal. Eyelids normal. ENT: TM's Normal. Pharynx normal. Uvula midline. Moist mucous membranes. No trismus noted. No drooling noted. No muffled voice noted. Neck: Normal inspection. Neck supple. FROM. No adenopathy. Thyroid Normal. No meningeal signs. No neck mass noted. CVS: Normal heart rate and rhythm. Heart sound normal. No murmurs noted. Pulses normal throughout. Respiratory: No respiratory distress. Painless inspiration. Breath sounds normal. No wheezes/rales/rhonchi noted. Chest nontender. No accessory muscle usage noted or decreased air movement noted. Abdomen: Soft and nontender. Bowel sounds normal in all 4 quadrants. No distention noted. No organomegaly noted. No visible injury noted. Back: No CVA tenderness. Full range of motion noted. Skin: Skin warm and dry. Normal skin color. Normal skin turgor. No rashes/lesions/lacerations noted. Extremities: Bilateral lower extremity pitting edema. right foot redness and hotness. Extremities exhibit normal range of motion. Extremities nontender. Neuro: Oriented X 3. Cranial nerve exam: II-XII are grossly intact No motor deficit. No sensory deficit. Reflexes normal. Course Course Course Narrative: 76-year-old male with bilateral worsening of bilateral lower extremities edema and cellulitis of the right lower extremities, ultrasound showed no DVT today, patient do not meet criteria for SIRs. Patient gained about 14 lb in short time despite increasing Lasix at home by PCP and finish the taper course of prednisone for a week. Start the patient on Zosyn and vancomycin, admit for diuresis. Medical Decision Making Medical Records Medical records reviewed: Yes I reviewed the patient's medical records. Lab Data Lab results reviewed: Yes I reviewed the patient's lab results. Result diagrams: 02/05/22 20:02/05/22 20: Labs: Lab Results 02/05/22 02/05/22 02/05/22 Range/Units 20: 20: 20:01 WBC 10.2 (4.8-10.8) X10*3/uL RBC 3.78 L (4.60-5.80) X10*6/uL Hgb 10.5 L (14.0-18.0) g/dl Hct 34.4 L (42.0-52.0) % MCV 91.0 (80.0-98.0) fL MCH 27.8 (27.0-33.0) pg MCHC 30.5 L (31.0-36.0) g/dl RDW 22.5 H (11.0-16.0) % Plt Count 258 (160-400) X10*3/uL MPV 10.2 (9.4-12.4) fL Immature Gran % (Auto) 0.6 H (0.0-0.4) % Neut % (Auto) 71.4 (45-73) % Lymph % (Auto) 14.3 L (20-40) % Blount % (Auto) 13.1 H (2-11) % Eos % (Auto) 0.3 (0-4) % Baso % (Auto) 0.3 (0-2) % Lymph # (Auto) 1.5 (1.2-4.9) X10*3/uL Blount # (Auto) 1.3 H (0.1-1.2) X10*3/uL Eos # (Auto) 0.0 (0.0-0.4) X10*3/uL Baso # (Auto) 0.0 (0.0-0.2) X10*3/uL Abs Immat Gran (auto) 0.06 H (0.00-0.03) X10*3/uL Absolute Neuts (auto) 7.3 (2.0-8.3) x10*3/uL Absolute Nucleated RBC 0.000 (0.0-0.012) X10*3/uL Nucleated RBC % (auto) 0.0 (0.0-0.2) /100WBC Sodium 136 (135-145) mmol/L Potassium 3.8 (3.3-5.1) mmol/L Chloride 101 (96-108) mmol/L Carbon Dioxide 24 (22-29) mmol/L Anion Gap 15 (12-20) BUN 17 H (9-16) mg/dL Creatinine 1.25 (0.5-1.4) mg/dL Estim Creat Clear Calc 53.5 Estimated GFR 56 Random Glucose 112 (60-115) mg/dL Lactic Acid 1.2 (0.5-2.0) mmol/L Calcium 8.8 (8.4-10.2) mg/dL Total Bilirubin 1.1 H (0.0-1.0) mg/dL AST 23 D (5-37) U/L ALT 10 (0-40) U/L Alkaline Phosphatase 48 D (39-117) U/L B-Natriuretic Peptide (<100) pg/mL Total Protein 6.4 L (6.5-8.0) g/dL Albumin 3.6 (3.5-5.0) g/dL COVID-19 ([facility]I) (Negative) COVID-19 Clin Com 02/05/22 02/05/22 02/05/22 Range/Units 20:01 20:01 22:23 WBC (4.8-10.8) X10*3/uL RBC (4.60-5.80) X10*6/uL Hgb (14.0-18.0) g/dl Hct (42.0-52.0) % MCV (80.0-98.0) fL MCH (27.0-33.0) pg MCHC (31.0-36.0) g/dl RDW (11.0-16.0) % Plt Count (160-400) X10*3/uL MPV (9.4-12.4) fL Immature Gran % (Auto) (0.0-0.4) % Neut % (Auto) (45-73) % Lymph % (Auto) (20-40) % Blount % (Auto) (2-11) % Eos % (Auto) (0-4) % Baso % (Auto) (0-2) % Lymph # (Auto) (1.2-4.9) X10*3/uL Blount # (Auto) (0.1-1.2) X10*3/uL Eos # (Auto) (0.0-0.4) X10*3/uL Baso # (Auto) (0.0-0.2) X10*3/uL Abs Immat Gran (auto) (0.00-0.03) X10*3/uL Absolute Neuts (auto) (2.0-8.3) x10*3/uL Absolute Nucleated RBC (0.0-0.012) X10*3/uL Nucleated RBC % (auto) (0.0-0.2) /100WBC Sodium (135-145) mmol/L Potassium (3.3-5.1) mmol/L Chloride (96-108) mmol/L Carbon Dioxide (22-29) mmol/L Anion Gap (12-20) BUN (9-16) mg/dL Creatinine (0.5-1.4) mg/dL Estim Creat Clear Calc Estimated GFR Random Glucose (60-115) mg/dL Lactic Acid 1.3 (0.5-2.0) mmol/L Calcium (8.4-10.2) mg/dL Total Bilirubin (0.0-1.0) mg/dL AST (5-37) U/L ALT (0-40) U/L Alkaline Phosphatase (39-117) U/L B-Natriuretic Peptide 817 H (<100) pg/mL Total Protein (6.5-8.0) g/dL Albumin (3.5-5.0) g/dL COVID-19 ([facility]I) Negative (Negative) COVID-19 Clin Com See Note Imaging Data Right lower extremity ultrasound: Attestation: I personally reviewed and interpreted this imaging study as follows: Radiologist's impression: No DVT demonstrated in the right lower extremity. Again seen is evidence of severe peripheral arterial disease as described above Chest x-ray: Attestation: I personally reviewed and interpreted this imaging study as follows: Radiologist's impression: Improving CHF. No acute intrathoracic disease. Discharge Plan Discharge Clinical Impression: Cellulitis of right lower extremity, Edema Patient Disposition: Admitted As Inpatient
[2022-02-05] MEDS: Morphine Sulfate 2 MG/ML CARTRIDGE 1 MG IVPUSH (22:21)
[2022-02-05] MEDS: Furosemide 100 MG/10 ML VIAL 60 MG IVPUSH (22:21)
[2022-02-05 22:51] LABS: Lactic Acid 1.3 mmol/L (0.5-2.0)
[2022-02-05] MEDS: Piperacillin Sodium/Tazobactam 3.375 GM in 0.9 % Sodium Chloride 50 ML IV (22:57)
[2022-02-05] MEDS: vancomycin HCL 1,250 MG in 0.9 % Sodium Chloride 250 ML 166.67 MG IV (23:07)
[2022-02-05] MEDS: HYDROmorphone HCl 0.5 MG/0.5 ML SYRINGE IVPUSH (23:07)
[2022-02-06] VITALS (17 sets, daily range): BP systolic 111–140; BP diastolic 57–83; PULSE 97–150; RESP 13–24; TEMP 36.8–37.2; O2SAT 93–96; BMI 66.9
--- NOTE | 2022-02-06 01:40 | ECG_ITS ---
Test Reason : CP Blood Pressure : / mmHG Vent. Rate : 156 BPM Atrial Rate : 163 BPM P-R Int : 000 ms QRS Dur : 148 ms QT Int : 286 ms P-R-T Axes : 000 238 017 degrees QTc Int : 460 ms Poor data quality Atrial fibrillation with rapid ventricular response Right bundle branch block Inferior infarct , age undetermined Anteroseptal infarct , age undetermined Abnormal ECG When compared with ECG of 17-JAN-2022 12:21, Vent. rate has increased Right bundle branch block is now Present Anteroseptal infarct is now Present Inferior infarct is now Present Referred By: Yohana Ray Electronically Signed By:SHANNON ANGULO MD
--- NOTE | 2022-02-06 02:28 | PM.IMHP ---
History of Present Illness Date of Service: 02/05/22 Chief Complaint: leg swelling 76-year-old male with a past medical history of hypertension, hyperlipidemia, CAD status post CABG, CHF, gastritis, recent admission to the hospital for anemia presented to the hospital today with a chief complaint of bilateral leg swelling. Patient reports that over the past 2 weeks has been having bilateral leg swelling; also had fatigue; denies any shortness of breath, dyspnea on exertion, orthopnea. Mentions that he has been following with PCP and has been on p.o. Lasix with no significant improvement in his bilateral legs. Also mentioned that his right leg is much more tender and swollen. Denies any fevers and chills. Denies any chest pain palpitations lightheadedness or dizziness. Denies any GI symptoms. Review of all other systems is negative except mentioned above ER course: Per ER team patient noted to bilateral pitting edema; chest x-ray showed congestion. Concern for acute CHF/right leg cellulitis. Patient was given IV Zosyn. Admitted to the hospital for further management. Followed by patient also noted to have tachycardia with heart rate in 130s. AFib with RVR. [facility] Medical History Acute blood loss anemia Acute upper gastrointestinal bleeding Afib CAD (coronary artery disease) COPD (chronic obstructive pulmonary disease) Hyperlipidemia Nasal sinus tumor Pertinent family history: Heart disease Surgical History Hx of CABG Social History Household Members: Spouse Housing: House Do you presently have visiting nurse or other home services: No Alcohol intake: current Alcohol intake frequency: 0-2 drinks per day Alcohol type: beer Patient Tobacco Use Status: Former Tobacco user service: Yes Current occupational status: retired Meds Allergies Allergy/AdvReac Type Severity Reaction Status Date / Time No Known Allergies Allergy Verified 02/05/22 19:33 Active Medications: Current Medications Furosemide (Furosemide 40 Mg/4 Ml Vial) 40 mg IVPUSH BIDWM SHAWANDA; Protocol Hydromorphone HCl (Hydromorphone Hcl 0.5 Mg/0.5 Ml Syringe) 0.5 mg IVPUSH Q4H PRN; Protocol PRN Reason: Pain, Severe (Pain Scale 7-10) Last Admin: 02/05/22 23:07 Dose: 0.5 mg Piperacillin Sod/Tazobactam (Sod 3.375 gm/ Sodium Chloride) 50 mls @ 100 mls/hr IV Q6H [facility] Melatonin (Melatonin 3 Mg Tablet) 6 mg PO BEDTIME PRN PRN Reason: Insomnia Senna (Sennosides 8.6 Mg Tablet) 17.2 mg PO BEDTIME PRN PRN Reason: Constipation Sodium Chloride (0.9 % Sodium Chloride Flush 3 Ml Syringe) 3 ml IVFLUSH QSHIFT [facility] Last Admin: 02/06/22 01:32 Dose: Not Given Home Medications Medication Instructions Recorded Confirmed Last Taken Type atorvastatin 40 mg tablet 1 tab PO BEDTIME 01/17/22 02/06/22 01/16/22 History budesonide-formoterol HFA 160 1 puff PO BID 01/17/22 02/06/22 01/17/22 History mcg-4.5 mcg/actuation aerosol inhaler (Symbicort) diltiazem HCl 240 mg capsule,24 1 cap PO DAILY 01/17/22 02/06/22 01/17/22 History hr,extended release dutasteride 0.5 mg capsule 1 cap PO BEDTIME 01/17/22 02/06/22 01/16/22 History fenofibrate nanocrystallized 145 1 tab PO DAILY 01/17/22 02/06/22 01/17/22 History mg tablet furosemide 40 mg tablet 1 tab PO DAILY 01/17/22 02/06/22 01/16/22 History lisinopril 20 mg tablet 1 tab PO DAILY 01/17/22 02/06/22 01/17/22 History rivaroxaban 20 mg tablet (Xarelto) 1 tab PO BEDTIME 01/17/22 02/06/22 01/16/22 History Physical Exam Vital Signs and Narrative: Vital Signs: Last Vital Signs Temp 97.8 F 02/05/22 21:34 Pulse 123 H 02/06/22 00:00 Resp 15 02/06/22 00:00 BP 113/57 L 02/06/22 00:00 Pulse Ox 94 02/06/22 00:00 O2 Del Method 02/06/22 00:00 BMI result Body Mass Index 27.7 Gen: Appears be in no acute distress HEENT: NCAT, Moist mucosa. Pulmonary: Fine crackles present CVS: Normal S1-S2 Abdomen: BS+, Soft, Nontender Extremities: Warm well perfused; 3+ pitting edema noted bilaterally. Right leg is warm tender and erythematous. Neuro: Alert and awake. Grossly nonfocal Results Labs CBC and Chem 7: 02/06/22 06:00 02/09/22 09:30 Labs: Laboratory Results - last 24 hr 02/05/22 02/05/22 02/05/22 20:01 20:01 20:01 MCV 91.0 MCH 27.8 MCHC 30.5 L RDW 22.5 H Plt Count 258 MPV 10.2 Immature Gran % (Auto) 0.6 H Neut % (Auto) 71.4 Lymph % (Auto) 14.3 L [place] % (Auto) 13.1 H Eos % (Auto) 0.3 Baso % (Auto) 0.3 Lymph # (Auto) 1.5 [place] # (Auto) 1.3 H Eos # (Auto) 0.0 Baso # (Auto) 0.0 Abs Immat Gran (auto) 0.06 H Absolute Neuts (auto) 7.3 Absolute Nucleated RBC 0.000 Nucleated RBC % (auto) 0.0 Anion Gap 15 Estim Creat Clear Calc 53.5 Estimated GFR 56 Random Glucose 112 Lactic Acid 1.2 Calcium 8.8 Total Bilirubin 1.1 H AST 23 D ALT 10 Alkaline Phosphatase 48 D B-Natriuretic Peptide Total Protein 6.4 L Albumin 3.6 COVID-19 (OLI) COVID-19 Clin Com 02/05/22 02/05/22 02/05/22 20:01 20:01 22:23 MCV MCH MCHC RDW Plt Count MPV Immature Gran % (Auto) Neut % (Auto) Lymph % (Auto) [place] % (Auto) Eos % (Auto) Baso % (Auto) Lymph # (Auto) [place] # (Auto) Eos # (Auto) Baso # (Auto) Abs Immat Gran (auto) Absolute Neuts (auto) Absolute Nucleated RBC Nucleated RBC % (auto) Anion Gap Estim Creat Clear Calc Estimated GFR Random Glucose Lactic Acid 1.3 Calcium Total Bilirubin AST ALT Alkaline Phosphatase B-Natriuretic Peptide 817 H Total Protein Albumin COVID-19 (OLI) Negative COVID-19 Clin Com See Note Imaging Radiologist's Impressions: Impressions Chest X-Ray 02/05/22 20:15 IMPRESSION: Improving CHF. No acute intrathoracic disease. Venous Duplex 02/05/22 21:35 IMPRESSION: No DVT demonstrated in the right lower extremity. Again seen is evidence of severe peripheral arterial disease as described above Assessment and Plan (1) Cellulitis of right lower extremity: Status: Acute Plan 76-year-old male with a past medical history of hypertension, hyperlipidemia, CAD status post CABG, CHF, COPD, recent admission to the hospital for anemia secondary to GI bleed; presented to the hospital today with a chief complaint of bilateral leg swelling/fatigue. Noted to have acute CHF/right lower extremity cellulitis. Admitted for further management. RLE cellulitis: Continue Zosyn. Venous duplex negative. AFib with RVR: Patient heart rate in 140s. Will give the patient on IV diltiazem p.r.n.. Continue home Xarelto Acute CHF exacerbation: Daily weights and I's and O's Will give the patient on Lasix 40 mg IV b.i.d. Cardiology consult Continue home Toprol-XL 25 mg Echocardiogram History of hypertension: Patient blood pressure was on the soft side. During the recent admission patient home medications metoprolol succinate 100 mg, lisinopril and diltiazem 240 mg were discontinued. Patient was kept on lower dose of metoprolol succinate 25 mg. Currently blood pressure in low normal side. Will continue to monitor History of anemia: Continue home iron supplementation DVT prophylaxis: Patient on Xarelto Code status: Full code Quality Stroke Does the patient have a stroke diagnosis?: No VTE Prior VTE?: No VTE Risk Level:: Medical - moderate - high VTE Device Contraindication: Treatment Not Indicated VTE Drug Contraindication: N/A - Med Ordered
[2022-02-06] MEDS: dilTIAZem HCL 50 MG/10 ML VIAL 10 MG IVPUSH ×3 (02:34→10:46)
--- NOTE | 2022-02-06 02:47 | PC.NURSE ---
Patient went into rapid afib RVR 140-[address] Kessler notified ekg done MD ordered ditiazem 10mg iv push. Patient asyptomatic does not feel anything. notified of heart rate 110-120's after diltiazem.
[2022-02-06] MEDS: HYDROmorphone HCl 0.5 MG/0.5 ML SYRINGE IVPUSH ×3 (06:03→23:33)
[2022-02-06] MEDS: Piperacillin Sodium/Tazobactam 3.375 GM in 0.9 % Sodium Chloride 50 ML IV ×4 (06:04→23:34)
[2022-02-06] MEDS: Metoprolol Succinate ER 12.5 MG HALFTAB.ER.24H PO (06:05)
--- NOTE | 2022-02-06 06:45 | MHC.PIE ---
Addendum entered by Eulogio Ferrari RN 02/06/22 07:01: HR down to 105-110's post IV lopressor admin. BP remaining stable. Original Note: HR elevated 120's to 150's, afib. Patient asymptomatic. BP stable, 130's systolic. Patient not due for PRN cardizem - Dr Kessler made aware - ordered to give 9AM lopressor & PRN 10mg IVP cardizem early - both given at approx 0605 (see SEP). HR still elevated 130's - Dr Kessler made aware - ordered 5mg IVP lopressor to give.
--- NOTE | 2022-02-06 06:48 | MHC.PIE ---
Patient medicated for pain with dilaudid at 0603 with good effect. Patient dozing, reports pain more tolerable.
[2022-02-06] MEDS: Metoprolol Tartrate 5 MG/5 ML VIAL IVPUSH (06:53)
[2022-02-06 06:59] LABS: MANUAL DIFF FLAG NO
--- NOTE | 2022-02-06 07:00 | CA_ITS ---
Transthoracic Echocardiogram Patient (Last, First, Middle): Hector Diaz, Gender: Male Date of : 1945 Age: 76 Procedure Date: 02/06/2022 Procedure Type: Transthoracic Echocardiogram Location: ER Height: 180.34 cm Weight: 90.27 kg BSA: 2.10 m2 Heart Rate: bpm BP: 125 / 72 mmHg Bellhop: COLETTE Referring MD: Ramy Kessler MD Eradicator: Rudi Mccoy MD Symptoms: chf Study Quality: Adequate/contrast ECG Rhythm: Atrial Fibrillation Conclusions: - 1. Mildly reduced LV systolic function with grade 3 diastolic dysfunction with LVEF of 45-50%, wall motion abnormalities are not well defined but present 2. Severe biatrial enlargement 3. Severe mitral calcification with trace to mild mitral regurgitation next 4. Moderately elevated right ventricular systolic pressure with significantly elevated right atrial pressures 5. No gross pericardial effusion Findings Procedure Information Contrast agent, definity, is being given per protocol without apparent complications. Left Ventricle The left ventricle was not well visualized. Normal left ventricular cavity size. There is normal left ventricular wall thickness. The left ventricular systolic function is mildly decreased. The visually estimated ejection fraction is between 45-50%. There is evidence of regional wall motion abnormalities. Spectral Doppler is indicative of a restrictive filling pattern. E/E prime ratio is >15, consistent with elevated filling pressures. Evidence suggests grade III (severe) diastolic dysfunction. Right Ventricle Mildly increased right ventricular cavity size. Atria The left atrium is severely dilated. There is lipomatous hypertrophy of the interatrial septum. There is no evidence of interatrial shunt. The right atrium is severely dilated. Aortic Valve There is mild calcification of the aortic valve. There is no aortic valve stenosis. There is no aortic valve regurgitation. Mitral Valve There is moderate anterior and posterior mitral leaflet thickening. There is severe mitral annular calcification. There is trace mitral valve regurgitation. There is no mitral valve stenosis. Pulmonic Valve The pulmonic valve was not well visualized. Tricuspid Valve Likely normal tricuspid valve structure and function. There is mild tricuspid valve regurgitation. Significantly elevated right atrial pressure. Moderate pulmonary hypertension is present. Great Vessels The pulmonary artery was not well visualized. There is mild dilatation of the ascending aorta measuring 4.20 cm. Venous The inferior vena cava is moderately dilated and does not collapse with inspiration. Pericardium/Pleural There is no evidence of pericardial effusion. Prior Study Comparison No prior study available for comparison. Measurements 2D Linear Measurements IVSd: 1.05 0.6-0.9/0.6-1.0 cm LVIDd: 5.17 3.9-5.3/4.2-5.9 cm LVIDd Index: 2.46 2.4-3.2/2.2-3.1 cm/m2 LVIDs: 3.19 2.0-3.6 cm LVPWd: 1.03 0.7-1.1 cm LA Diam: 5.20 2.7-3.8/3.0-4.0 cm LAIDs Index: 2.48 1.5-2.3 cm/m2 LV Mass: 252.61 67-162/88-224 g LV Mass Index: 120.29 43-95/49-115 g/m2 LVOT Diam: 2.10 3.0+(-)1.3 cm 2D Systolic Function EF 4C: 46.30 >55% EF 2C: 54.30 >55% Mitral Valve MV Pk E: 1.52 MV Decel Time: 192.00 E'Lateral: 8.81 E'Medial: 5.87 E/E' Med: 25.90 E/E' Lat: 17.30 PHT: 56.00 MVA PHT: 3.93 Decel Craven: 7.91 Aortic Valve AoV Pk Leonel: 1.16 AoV Mn Leonel: 0.73 AoV VTI: 0.19 AoV Pk Grad: 5.00 Aov Mn Grad: 3.00 THUAN Cont.VTI: 2.98 LVOT LVOT Pk Leonel: 0.96 LVOT Mn Leonel: 0.68 LVOT VTI: 0.17 LVOT Pk Grad: 4.00 LVOT Mn Grad: 2.00 LVOT Diam: 2.10 LVOT Area: 3.46 Diastolic Function MV Pk E: 1.52 E'Medial: 5.87 E/E' Med: 25.90 E' Laterial: 8.81 E/E' Lat: 17.30 Right Ventricle TVS' Leonel: 5.70 Tricuspid Valve TR Pk Leonel: 3.18 TR Pk Grad: 40.00 RA Press: 15.00 RVSP: 55.00 Great Vessels Aorta Sinus of Valsalva: 4.46 2.0-3.[address] [place]: 2.86 1.7-3.4 cm Ao Asc: 4.20 2.1-3.4 cm Updated in Other Vendor System with Status of Final Rudi Mccoy MD electronically signed on 02/07/2022 8:45:39 AM with status of Final
--- NOTE | 2022-02-06 07:06 | PHA.MEDREC ---
Pharmacy Consult ? Medication Reconciliation Pharmacy has reviewed the medication reconciliation done by Jessica
[2022-02-06 07:07] LABS: Basophils Percent Auto 0.2 % (0-2); Eosinophils Percent Auto 0.1 % (0-4); Hematocrit 33.1 % (42.0-52.0); Imm Gran Abs Auto 0.06 X10*3/uL (0.00-0.03); Imm Gran Pct Auto 0.5 % (0.0-0.4); Lymphocytes Absolute Auto 1.4 X10*3/uL (1.2-4.9); Lymphocytes Percent Auto 11.5 % (20-40); Mean Corpuscular HGB Conc 30.2 g/dl (31.0-36.0); Mean Corpuscular Hemoglobin 27.6 pg (27.0-33.0); Mean Corpuscular Volume 91.4 fL (80.0-98.0); Mean Platelet Volume 10.5 fL (9.4-12.4); Monocytes Absolute Auto 1.5 X10*3/uL (0.1-1.2); Monocytes Percent Auto 12.3 % (2-11); Neutrophils Percent Auto 75.4 % (45-73); Platelet Count 252 X10*3/uL (160-400); Red Blood Count 3.62 X10*6/uL (4.60-5.80); Red Cell Distribution Width 22.9 % (11.0-16.0); White Blood Count 11.9 X10*3/uL (4.8-10.8)
[2022-02-06 07:23] LABS: Anion Gap 16 (12-20); Blood Urea Nitrogen 16 mg/dL (9-16); Calcium 8.5 mg/dL (8.4-10.2); Carbon Dioxide 25 mmol/L (22-29); Chloride 102 mmol/L (96-108); Creatinine Clr Calc Pharmacy 71.2; Estimated Glomerular Filt Rate > 60; Glucose Random 120 mg/dL (60-115); Potassium 3.8 mmol/L (3.3-5.1); Sodium 139 mmol/L (135-145)
--- NOTE | 2022-02-06 08:06 | PC.NURSE ---
Addendum entered by Natalia Beck 02/06/22 08:37: r leg is more swollen and anthony and tender t0 touch. Original Note: pt a/o x 3 no sob/bettina noted skin pink warm dry speaks in full sentences. sylvia lower ext swollen with 3+ pitting edema.. lungs - slight exp wheezing and crackles noted. pt aware of plan of care
[2022-02-06] MEDS: Omeprazole 20 MG CAPSULE.DR PO ×2 (08:19→20:44)
[2022-02-06] MEDS: Furosemide 40 MG/4 ML VIAL IVPUSH ×2 (08:19→17:32)
--- NOTE | 2022-02-06 08:22 | ECG_ITS ---
Test Reason : repeat Blood Pressure : / mmHG Vent. Rate : 115 BPM Atrial Rate : 000 BPM P-R Int : 000 ms QRS Dur : 100 ms QT Int : 352 ms P-R-T Axes : 000 -28 192 degrees QTc Int : 486 ms Atrial fibrillation with rapid ventricular response with premature ventricular or aberrantly conducted complexes Minimal voltage criteria for LVH, may be normal variant ( [place] product ) Right bundle branch block Abnormal ECG When compared with ECG of 06-FEB-2022 01:42, Vent. rate has decreased Criteria for Anteroseptal infarct are no longer Present Referred By: Yohana Ray Electronically Signed By:SHANNON ANGULO MD
[2022-02-06] MEDS: 0.9 % Sodium Chloride Flush 3 ML SYRINGE IVFLUSH ×2 (08:38→20:45)
[2022-02-06] MEDS: Fenofibrate 160 MG TABLET PO (08:58)
--- NOTE | 2022-02-06 09:30 | PC.NURSE ---
pt buttoks anthony, barrier cream applied
--- NOTE | 2022-02-06 10:00 | PC.NURSE ---
pt' pat called [facility] and was updated on pt status.
--- NOTE | 2022-02-06 10:53 | PM.CNCAR ---
History of Present Illness History of Present Illness Date of Service: 02/06/22 Requesting physician: Ovidio Hagan Consult reason: congestive heart failure Chief complaint: Acute CHF Narrative: I was consulted to see Hector in cardiology consultation today because of congestive heart failure. He is a 76-year-old male with prior history of coronary artery disease status post 3 vessel coronary artery bypass grafting at [facility] 20 years ago as per him, significant peripheral vascular disease with limits his activity level, chronic atrial fibrillation being maintained with rate control and oral anticoagulation, hypertension which is controlled, came to the hospital with progressive leg swelling over the last 2 weeks with swelling and discomfort in the right lower extremity. When he came in he was noted to be in heart failure with elevated BNP in the 900 range as well as cellulitis of right lower extremity with atrial fibrillation rapid ventricular response. He has been started on oral anticoagulation as well as IV diuretics. He denies any worsening shortness of breath at home, denies any orthopnea, PND. Says that he does not getting angina but he is limited because of bilateral lower extremity discomfort related to question claudication which precedes any other symptoms. He would get short of breath if he was pushing it as per him. He remains in atrial fibrillation rapid ventricular response. He denies any prior history of congestive heart failure although at home it seems like he is on Lasix. He has prior history of significant anemia, acute blood loss anemia. Was seen by GI. Currently back on oral anticoagulation Xarelto but not on aspirin. Review of Systems Constitutional: Constitutional: Denies body ache(s), Denies chills, Denies fatigue, Denies fever(s) and Reports weakness Eyes: Eyes: Reports no additional eye complaints Cardiovascular: Cardiovascular: Denies chest pain, Reports leg edema, Denies lightheadedness, Denies Loss of Consciousness, Denies palpitations, Reports dyspnea on exertion, Denies orthopnea and Denies paroxysmal nocturnal dyspnea Respiratory: Respiratory: Reports cough and Reports dyspnea on exertion Gastrointestinal: Gastrointestinal: Reports no additional gastrointestinal complaints Genitourinary: Genitourinary: Reports no additional male genitourinary complaints Musculoskeletal: Musculoskeletal: Reports no additional musculoskeletal complaints Integumentary/Breasts: Skin/Breast: Reports system reviewed and no additional complaints, except as docu Neurologic: Reports system reviewed and no additional complaints, except as documented and Reports weakness Endocrine: Endocrine: Reports no additional endocrine complaints, Denies fatigue and Denies palpitations COUNTS INCLUDE 234 BEDS AT THE [facility] Past Medical History Medical History Acute blood loss anemia Acute upper gastrointestinal bleeding Afib CAD (coronary artery disease) COPD (chronic obstructive pulmonary disease) Hyperlipidemia Nasal sinus tumor Surgical History Surgical History Hx of CABG Social History Social History Alcohol intake: current Alcohol intake frequency: 0-2 drinks per day Alcohol type: wine Patient Tobacco Use Status: Never used Tobacco Advance Directives: No Advance Directives Information Provided: No service: Yes Current occupational status: retired [employer] Allergies Allergy/AdvReac Type Severity Reaction Status Date / Time No Known Allergies Allergy Verified 02/05/22 19:33 Active Medications: Current Medications Diltiazem HCl (Diltiazem Hcl 50 Mg/10 Ml Vial) 10 mg IVPUSH Q6H PRN PRN Reason: HR>125 Last Admin: 02/06/22 10:46 Dose: 10 mg Fenofibrate (Fenofibrate 160 Mg Tablet) 160 mg PO DAILY [facility] Last Admin: 02/06/22 08:58 Dose: 160 mg Furosemide (Furosemide 40 Mg/4 Ml Vial) 40 mg IVPUSH BIDWM [facility]DA; Protocol Last Admin: 02/06/22 08:19 Dose: 40 mg Hydromorphone HCl (Hydromorphone Hcl 0.5 Mg/0.5 Ml Syringe) 0.5 mg IVPUSH Q4H PRN; Protocol PRN Reason: Pain, Severe (Pain Scale 7-10) Last Admin: 02/06/22 06:03 Dose: 0.5 mg Piperacillin Sod/Tazobactam (Sod 3.375 gm/ Sodium Chloride) 50 mls @ 100 mls/hr IV Q6H [facility] Last Admin: 02/06/22 10:47 Dose: 100 mls/hr Diltiazem HCl 125 mg/ Sodium (Chloride) 125 mls @ 0 mls/hr IVCONT .Q0M [facility]; Protocol Melatonin (Melatonin 3 Mg Tablet) 6 mg PO BEDTIME PRN PRN Reason: Insomnia Metoprolol Succinate (Metoprolol Succinate Er 12.5 Mg Halftab.Er.24h) 12.5 mg PO DAILY [facility]; Protocol Last Admin: 02/06/22 06:05 Dose: 12.5 mg Non-Formulary Medication (Dutasteride) 1 cap PO BEDTIME [facility] Omeprazole (Omeprazole 20 Mg Capsule.Dr) 20 mg PO BID [facility] Last Admin: 02/06/22 08:19 Dose: 20 mg Rivaroxaban (Rivaroxaban 20 Mg Tablet) 20 mg PO BEDTIME [facility] Senna (Sennosides 8.6 Mg Tablet) 17.2 mg PO BEDTIME PRN PRN Reason: Constipation Sodium Chloride (0.9 % Sodium Chloride Flush 3 Ml Syringe) 3 ml IVFLUSH QSHIFT [facility] Last Admin: 02/06/22 08:38 Dose: 3 ml Home Medications Medication Instructions Recorded Confirmed Last Taken Type atorvastatin 40 mg tablet 1 tab PO BEDTIME 01/17/22 02/06/22 01/16/22 History budesonide-formoterol HFA 160 1 puff PO BID 01/17/22 02/06/22 01/17/22 History mcg-4.5 mcg/actuation aerosol inhaler (Symbicort) diltiazem HCl 240 mg capsule,24 1 cap PO DAILY 01/17/22 02/06/22 01/17/22 History hr,extended release dutasteride 0.5 mg capsule 1 cap PO BEDTIME 01/17/22 02/06/22 01/16/22 History fenofibrate nanocrystallized 145 1 tab PO DAILY 01/17/22 02/06/22 01/17/22 History mg tablet furosemide 40 mg tablet 1 tab PO DAILY 01/17/22 02/06/22 01/16/22 History lisinopril 20 mg tablet 1 tab PO DAILY 01/17/22 02/06/22 01/17/22 History rivaroxaban 20 mg tablet (Xarelto) 1 tab PO BEDTIME 01/17/22 02/06/22 01/16/22 History Physical Exam Vital Signs: Vital Signs: Last Vital Signs Temp 98.7 F 02/06/22 10:07 Pulse 134 H 02/06/22 10:44 Resp 24 H 02/06/22 10:44 BP 129/72 02/06/22 10:44 Pulse Ox 96 02/06/22 10:44 O2 Del Method 02/06/22 10:44 BMI result Body Mass Index 27.7 Const: General: cooperative, comfortable, alert, awake and in distress mild and respiratory Nutritional Appearance: overweight Orientation/consciousness: patient oriented x3 HEENT: Head: Yes normocephalic and Yes atraumatic Neck: Neck: Yes trachea midline, Yes supple and Yes JVD (Also prominent V-wave suggestive tricuspid regurgitation) Chest: Chest palpation & inspection: other (Well-healed sternotomy scar) Resp: Effort & Inspection: normal respiratory effort Auscultation: rales bilateral in the lower lung peguero and no wheezes Cardio: Jugular venous distension: JVD Rate: tachycardic Rhythm: abnormal rhythm irregularly irregular Heart sounds: S1 normal heart sound present, S2 normal heart sound present, no click, no gallops and no murmurs (Cannot appreciate any murmurs at fast heart rate) GI: Inspection: Yes distended Auscultation: normal bowel sounds Skin: General skin exam: no rashes or lesions noted and ecchymosis Neuro: General: patient oriented x3 and no focal motor deficits Extrem: General: No clubbing, No cyanosis, Yes edema and Yes other (Cellulitis of the right lower extremity) Objective Labs and Meds Result diagrams: 02/06/22 06:00 02/06/22 06:00 Lab results: Laboratory Results - last 24 hr 02/05/22 02/05/22 02/05/22 20:01 20:01 20:01 WBC 10.2 RBC 3.78 L Hgb 10.5 L Hct 34.4 L MCV 91.0 MCH 27.8 MCHC 30.5 L RDW 22.5 H Plt Count 258 MPV 10.2 Immature Gran % (Auto) 0.6 H Neut % (Auto) 71.4 Lymph % (Auto) 14.3 L [place] % (Auto) 13.1 H Eos % (Auto) 0.3 Baso % (Auto) 0.3 Lymph # (Auto) 1.5 [place] # (Auto) 1.3 H Eos # (Auto) 0.0 Baso # (Auto) 0.0 Abs Immat Gran (auto) 0.06 H Absolute Neuts (auto) 7.3 Absolute Nucleated RBC 0.000 Nucleated RBC % (auto) 0.0 Sodium 136 Potassium 3.8 Chloride 101 Carbon Dioxide 24 Anion Gap 15 BUN 17 H Creatinine 1.25 Estim Creat Clear Calc 53.5 Estimated GFR 56 Random Glucose 112 Lactic Acid 1.2 Calcium 8.8 Magnesium Total Bilirubin 1.1 H AST 23 D ALT 10 Alkaline Phosphatase 48 D B-Natriuretic Peptide Total Protein 6.4 L Albumin 3.6 COVID-19 (OLI) COVID-19 Clin Com 02/05/22 02/05/22 02/05/22 20:01 20:01 22:23 WBC RBC Hgb Hct MCV MCH MCHC RDW Plt Count MPV Immature Gran % (Auto) Neut % (Auto) Lymph % (Auto) [place] % (Auto) Eos % (Auto) Baso % (Auto) Lymph # (Auto) [place] # (Auto) Eos # (Auto) Baso # (Auto) Abs Immat Gran (auto) Absolute Neuts (auto) Absolute Nucleated RBC Nucleated RBC % (auto) Sodium Potassium Chloride Carbon Dioxide Anion Gap BUN Creatinine Estim Creat Clear Calc Estimated GFR Random Glucose Lactic Acid 1.3 Calcium Magnesium Total Bilirubin AST ALT Alkaline Phosphatase B-Natriuretic Peptide 817 H Total Protein Albumin COVID-19 (OLI) Negative COVID-19 Clin Com See Note 02/06/22 02/06/22 02/06/22 06:00 06:00 06:00 WBC 11.9 H RBC 3.62 L Hgb 10.0 L Hct 33.1 L MCV 91.4 MCH 27.6 MCHC 30.2 L RDW 22.9 H Plt Count 252 MPV 10.5 Immature Gran % (Auto) 0.5 H Neut % (Auto) 75.4 H Lymph % (Auto) 11.5 L [place] % (Auto) 12.3 H Eos % (Auto) 0.1 Baso % (Auto) 0.2 Lymph # (Auto) 1.4 [place] # (Auto) 1.5 H Eos # (Auto) 0.0 Baso # (Auto) 0.0 Abs Immat Gran (auto) 0.06 H Absolute Neuts (auto) 9.0 H Absolute Nucleated RBC 0.000 Nucleated RBC % (auto) 0.0 Sodium 139 Potassium 3.8 Chloride 102 Carbon Dioxide 25 Anion Gap 16 BUN 16 Creatinine 0.94 Estim Creat Clear Calc 71.2 Estimated GFR > 60 Random Glucose 120 H Lactic Acid Calcium 8.5 Magnesium 2.0 Total Bilirubin AST ALT Alkaline Phosphatase B-Natriuretic Peptide Total Protein Albumin COVID-19 (OLI) COVID-19 Clin Com Imaging Radiologist's impression: Impressions Chest X-Ray 02/05/22 20:15 IMPRESSION: Improving CHF. No acute intrathoracic disease. Venous Duplex 02/05/22 21:35 IMPRESSION: No DVT demonstrated in the right lower extremity. Again seen is evidence of severe peripheral arterial disease as described above Assessment and Plan (1) Acute congestive heart failure: Status: Acute Patient denies any clear left ventricular failure symptoms but has right heart failure symptoms. Clinically appears to have bilateral rales. This is probably suggestive decompensated CHF with clinical findings of fluid overload, bilateral rales and elevated BNP. Requires is diuresis. Agree with Lasix 40 mg IV b.i.d.. Strict intake and output chart needs to be pursued. Consider adding low-dose spironolactone to his regimen. Aggressive rate control need to be pursued, see below. Continue treat his medical condition. Will require echocardiogram to assess for LV systolic and diastolic function more importantly presence of significant valvular disease especially tricuspid regurgitation. Management was discussed in details. Continue to trend renal function electrolytes as well as BNP. Will continue to follow with you. His coronary artery disease currently appears to be stable with no evidence of acute myocardial ischemia (2) Atrial fibrillation with rapid ventricular response: Status: Acute Atrial fibrillation with rapid ventricular response. Currently on Cardizem drip. Increase metoprolol to 12.5 mg q.6 hours and add digoxin 0.25 mg IV push q.6 x3 doses. Most likely driven by congestive heart failure as well as cellulitis. Continue treat cellulitis aggressively. Continue full oral anticoagulation with Xarelto. Continue monitor hematocrit. In future if he develops recurrent anemia may require alternative to oral anticoagulation therapy with Watchman device. Will follow with his own process developer. Will continue to follow with the patient while he is admitted. Thank you for allowing me to partake in his care Procedures Date of Service Date of Service: 02/06/22
--- NOTE | 2022-02-06 11:04 | PC.NURSE ---
pt voided on pad at 1035. Fixed pts condom cath.
--- NOTE | 2022-02-06 11:33 | PC.NURSE ---
rn to rn report given to nova wilson transferred to ed overflow.
[2022-02-06] MEDS: dilTIAZem HCL 125 MG in 0.9 % Sodium Chloride 100 ML 10 MG IVCONT (11:49)
--- NOTE | 2022-02-06 12:56 | PC.NURSE ---
anatomy unable to sustain condom cath. Incontinence pad applied around genitals.
[2022-02-06] MEDS: Digoxin 0.5 MG/2 ML AMPUL 0.25 MG IVPUSH ×2 (13:04→18:04)
--- NOTE | 2022-02-06 13:16 | MHC.CM.PN ---
Addendum entered by Antonia Bull 02/06/22 14:01: Received return telephone call from patient's , Ariana Block. (Legal name is Kierra but goes by Ariana Block). She will attempt to bring a copy of patient's HCP to facility. Original Note: Attempted to meet with patient in regards to discharge planning. Patient sleeping. No family present. Attempted to speak with patient's , Kierra, via telephone at [phone]. Left message requesting return telephone call and explaining IMM. Case management assessment completed using medical record. Patient was recently discharged home from [facility] with no services. No HCP on file. Patient received 3 Pfizer vaccines. PCP is Dr Ronquillo. Continue to monitor for d/c needs.
--- NOTE | 2022-02-06 15:15 | P.PNIM_ITS ---
Subjective Subjective Date of Service: 02/07/22 Interval History: Seen in f/u for heart failure and afib with rvr Interval history: very edematous, no sob, HR is very high--started on cardizem and dig loading Review of Systems no palpitation no chest pain Physical Exam Vital Signs: Vital Signs: Last Vital Signs Temp 99.0 F 02/06/22 11:03 Pulse 125 H 02/06/22 11:03 Resp 20 02/06/22 11:03 BP 111/78 02/06/22 11:03 Pulse Ox 94 02/06/22 11:03 O2 Del Method 02/06/22 11:03 BMI result Body Mass Index 27.7 Const: Other: General: AO X 3, no acute distress Resp: CTA bilateral, no accessory muscle use CVS: S1,S2, iregular iregular, 2+ leg edame GI: +BS, NT, no distention Skin: No rash, Neuro: motor grossly intact Psych: appropriate affect Objective Data Active Medications Digoxin (Digoxin 0.5 Mg/2 Ml Ampul) 0.25 mg IVPUSH Q6H [facility] Stop: 02/06/22 19:01 Last Admin: 02/06/22 13:04 Dose: 0.25 mg Documented By: BENNY Diltiazem HCl (Diltiazem Hcl 50 Mg/10 Ml Vial) 10 mg IVPUSH Q6H PRN PRN Reason: HR>125 Last Admin: 02/06/22 10:46 Dose: 10 mg Documented By: LORI Fenofibrate (Fenofibrate 160 Mg Tablet) 160 mg PO DAILY [facility] Last Admin: 02/06/22 08:58 Dose: 160 mg Documented By: LORI Furosemide (Furosemide 40 Mg/4 Ml Vial) 40 mg IVPUSH BIDWM [facility]; Protocol Last Admin: 02/06/22 08:19 Dose: 40 mg Documented By: LORI Hydromorphone HCl (Hydromorphone Hcl 0.5 Mg/0.5 Ml Syringe) 0.5 mg IVPUSH Q4H PRN; Protocol PRN Reason: Pain, Severe (Pain Scale 7-10) Last Admin: 02/06/22 06:03 Dose: 0.5 mg Documented By: TRE Piperacillin Sod/Tazobactam (Sod 3.375 gm/ Sodium Chloride) 50 mls @ 100 mls/hr IV Q6H [facility] Last Infusion: 02/06/22 11:23 Dose: 0 mls/hr Documented By: LORI Diltiazem HCl 125 mg/ Sodium (Chloride) 125 mls @ 0 mls/hr IVCONT .Q0M [facility]; Protocol Last Titration: 02/06/22 14:40 Dose: 10 mg/hr, 10 mls/hr Documented By: BENNY Melatonin (Melatonin 3 Mg Tablet) 6 mg PO BEDTIME PRN PRN Reason: Insomnia Metoprolol Succinate (Metoprolol Succinate Er 12.5 Mg Halftab.Er.24h) 12.5 mg PO DAILY [facility]; Protocol Last Admin: 02/06/22 06:05 Dose: 12.5 mg Documented By: TRE Comments: order to give early per dr tipton Non-Formulary Medication (Dutasteride) 1 cap PO BEDTIME [facility] Omeprazole (Omeprazole 20 Mg Capsule.) 20 mg PO BID [facility] Last Admin: 02/06/22 08:19 Dose: 20 mg Documented By: LORI Rivaroxaban (Rivaroxaban 20 Mg Tablet) 20 mg PO BEDTIME [facility] Senna (Sennosides 8.6 Mg Tablet) 17.2 mg PO BEDTIME PRN PRN Reason: Constipation Sodium Chloride (0.9 % Sodium Chloride Flush 3 Ml Syringe) 3 ml IVFLUSH QSHIFT [facility] Last Admin: 02/06/22 14:22 Dose: Not Given Documented By: BENNY Non-Admin Reason: IV Running Labs CBC & Chem 7: 02/06/22 06:00 02/06/22 06:00 Labs: Laboratory Results - last 24 hr 02/05/22 02/05/22 02/05/22 20:01 20:01 20:01 MCV 91.0 MCH 27.8 MCHC 30.5 L RDW 22.5 H Plt Count 258 MPV 10.2 Immature Gran % (Auto) 0.6 H Neut % (Auto) 71.4 Lymph % (Auto) 14.3 L [place] % (Auto) 13.1 H Eos % (Auto) 0.3 Baso % (Auto) 0.3 Lymph # (Auto) 1.5 [place] # (Auto) 1.3 H Eos # (Auto) 0.0 Baso # (Auto) 0.0 Abs Immat Gran (auto) 0.06 H Absolute Neuts (auto) 7.3 Absolute Nucleated RBC 0.000 Nucleated RBC % (auto) 0.0 Anion Gap 15 Estim Creat Clear Calc 53.5 Estimated GFR 56 Random Glucose 112 Lactic Acid 1.2 Calcium 8.8 Magnesium Total Bilirubin 1.1 H AST 23 D ALT 10 Alkaline Phosphatase 48 D B-Natriuretic Peptide Total Protein 6.4 L Albumin 3.6 COVID-19 ([facility]) COVID-19 Clin Com 02/05/22 02/05/22 02/05/22 20:01 20:01 22:23 MCV MCH MCHC RDW Plt Count MPV Immature Gran % (Auto) Neut % (Auto) Lymph % (Auto) [place] % (Auto) Eos % (Auto) Baso % (Auto) Lymph # (Auto) [place] # (Auto) Eos # (Auto) Baso # (Auto) Abs Immat Gran (auto) Absolute Neuts (auto) Absolute Nucleated RBC Nucleated RBC % (auto) Anion Gap Estim Creat Clear Calc Estimated GFR Random Glucose Lactic Acid 1.3 Calcium Magnesium Total Bilirubin AST ALT Alkaline Phosphatase B-Natriuretic Peptide 817 H Total Protein Albumin COVID-19 (OLI) Negative COVID-19 Clin Com See Note 02/06/22 02/06/22 02/06/22 06:00 06:00 06:00 MCV 91.4 MCH 27.6 MCHC 30.2 L RDW 22.9 H Plt Count 252 MPV 10.5 Immature Gran % (Auto) 0.5 H Neut % (Auto) 75.4 H Lymph % (Auto) 11.5 L [place] % (Auto) 12.3 H Eos % (Auto) 0.1 Baso % (Auto) 0.2 Lymph # (Auto) 1.4 [place] # (Auto) 1.5 H Eos # (Auto) 0.0 Baso # (Auto) 0.0 Abs Immat Gran (auto) 0.06 H Absolute Neuts (auto) 9.0 H Absolute Nucleated RBC 0.000 Nucleated RBC % (auto) 0.0 Anion Gap 16 Estim Creat Clear Calc 71.2 Estimated GFR > 60 Random Glucose 120 H Lactic Acid Calcium 8.5 Magnesium 2.0 Total Bilirubin AST ALT Alkaline Phosphatase B-Natriuretic Peptide Total Protein Albumin COVID-19 ([facility]I) COVID-19 Clin Com Assessment and Plan (1) Atrial fibrillation with rapid ventricular response: Status: Acute (2) Acute congestive heart failure: Status: Acute (3) Cellulitis of right lower extremity: Status: Acute Plan 76-year-old male with a past medical history of hypertension, hyperlipidemia, CAD status post CABG, CHF, COPD, recent admission to the hospital for anemia secondary to GI bleed; presented to the hospital today with a chief complaint of bilateral leg swelling/fatigue.? Noted to have acute CHF/right lower extremity cellulitis.? Admitted for further management. RLE cellulitis:? DC Zosyn, add Doxy for better gpcc coverage Chronic AFib with RVR: Persistent tachycardia but improving -continue IV cardizem, digoxin loading, -cardiology following - continue xarelto Acute systolic CHF exacerbation, marked leg edema Daily weights and I's and O's Lasix 40 mg IV b.i.d., negative 1700 liters Cardiology consult Continue metoprolol, currently 12. 5 q6 Echocardiogram pending History of hypertension:?continue metor[place]o, restat lisinpril when BP is better History of anemia: Continue home iron supplementation DVT prophylaxis:? Patient on Xarelto Inaptient for AFIB with need IV med for control, ongoing continuus cardiac monitoring Quality Stroke Does the patient have a stroke diagnosis?: No VTE Prior VTE?: No VTE Risk Level:: Medical - moderate - high VTE Device Contraindication: Treatment Not Indicated VTE Drug Contraindication: N/A - Med Ordered
[2022-02-06] MEDS: Metoprolol Tartrate 12.5 MG HALFTAB PO ×2 (15:55→20:45)
--- NOTE | 2022-02-06 18:46 | PC.NURSE ---
Patient alert and oriented x 3. Patient c/o 5/10 pain in legs increases with movement. tele: afib 90-120's Patient on iv antibiotics for cellulitis in legs. Patient has 3+ edema RLE. Patient ambulates with walker at home but has not gotten up here. Will continue with plan of care.
--- NOTE | 2022-02-06 19:22 | PC.NURSE ---
Placed narayan catheter draining clear yellow urine.
[2022-02-06] MEDS: Rivaroxaban 20 MG TABLET PO (20:44)
[2022-02-06] MEDS: dilTIAZem HCL 125 MG in 0.9 % Sodium Chloride 100 ML IVCONT (21:10)
[2022-02-07] VITALS (7 sets, daily range): BP systolic 94–137; BP diastolic 54–76; PULSE 82–111; RESP 18–20; TEMP 36.3–37.9; O2SAT 86–98
[2022-02-07] MEDS: Metoprolol Tartrate 12.5 MG HALFTAB PO ×3 (03:25→16:01)
[2022-02-07] MEDS: HYDROmorphone HCl 0.5 MG/0.5 ML SYRINGE IVPUSH ×3 (05:21→16:08)
[2022-02-07] MEDS: Piperacillin Sodium/Tazobactam 3.375 GM in 0.9 % Sodium Chloride 50 ML IV (05:21)
[2022-02-07] MEDS: Digoxin 0.25 MG TABLET PO (08:55)
[2022-02-07] MEDS: Omeprazole 20 MG CAPSULE.DR PO ×2 (08:55→21:16)
[2022-02-07] MEDS: Doxycycline Hyclate 100 MG in 0.9 % Sodium Chloride 250 ML 166.67 MG IV ×2 (08:55→21:14)
[2022-02-07] MEDS: Furosemide 40 MG/4 ML VIAL IVPUSH ×2 (08:55→16:01)
[2022-02-07] MEDS: Fenofibrate 160 MG TABLET PO (08:55)
[2022-02-07] MEDS: 0.9 % Sodium Chloride Flush 3 ML SYRINGE IVFLUSH ×3 (09:09→21:16)
--- NOTE | 2022-02-07 09:50 | P.CDIC_ITS ---
CDI Concurrent Query Documentation Clarification: PHYSICIAN'S DOCUMENTATION REQUEST Date of Query: 02/07/22 0951 Patient Name: Hector Diaz Admit Date: 02/05/22 Dear Doctor, A review of the medical record indicates additional documentation may be needed. Please review below and update the documentation accordingly. Clinical Indicators: Risk Factors/Clinical Indicators/Treatments Dx. Chronic atrial fibrillation with rvr. On Cardizem drip, increase Metoprolol, add digoxin. Persistent tachycardia but improved. If possible, please provide further specificity regarding atrial fibrillation, such as: * Paroxysmal atrial fibrillation: terminates spontaneously or with intervention within 7 days of onset. * Persistent atrial fibrillation: episodes of continuous AF that last more than 7 days and do not self-terminate. * Permanent atrial fibrillation: when a decision has been made to accept the pre sence of AF and there is no further attempt to restore or maintain sinus rhythm. * Other (please specify) * Unable to determine Use of terms such as suspected, likely, concern for, or probable (associated with a specific diagnosis that is being evaluated, monitored, or treated as if it exists) are acceptable and can be coded in the inpatient setting, when documented at the time of discharge. Thank you, Alycia Piper [facility], CDIS Extension: [phone] Please use your independent medical judgment in providing your response. THIS QUERY IS PART OF THE PERMANENT MEDICAL RECORD Provider Response: Other Other Diagnosis: see note
--- NOTE | 2022-02-07 11:56 | MHC.CM.PN ---
Male 76 DX CHF Per MD rounds no dc today. Patient continues on IV Lasix. DP home with or without services. Patients will provide transportation.
--- NOTE | 2022-02-07 12:23 | P.PNCA_ITS ---
Subjective Subjective Date of Service: 02/07/22 Principal diagnosis: CHF Interval history: Patient main complaint currently is right lower extremity pain, says better since receiving pain medication. Diuresing well. Echocardiogram shows mildly reduced LV systolic function with moderately elevated right ventricular systolic pressure with significantly elevated right atrial pressures. Atrial fibrillation persistent with much better rate control. Review of Systems Constitutional: Reports no additional constitutional complaints Cardiovascular: Denies chest pain, Reports leg edema, Denies Loss of Consciousness, Denies palpitations and Denies dyspnea Respiratory: Reports no additional respiratory complaints and Denies dyspnea Gastrointestinal: Reports no additional gastrointestinal complaints Genitourinary: Reports no additional male genitourinary complaints Musculoskeletal: Reports other (Right lower extremity pain) Endocrine: Denies palpitations Physical Exam Vital Signs: Last Vital Signs Temp 97.9 F 02/07/22 11:41 Pulse 99 02/07/22 11:41 Resp 19 02/07/22 11:41 BP 94/63 02/07/22 11:41 Pulse Ox 96 02/07/22 11:41 O2 Del Method 02/07/22 11:41 O2 Flow Rate 2 02/07/22 11:41 BMI result Body Mass Index 66.9 Const General: cooperative, comfortable and no acute distress Nutritional Appearance: obese Orientation/consciousness: patient oriented x3 Neck Neck: Yes trachea midline, Yes supple and Yes JVD Resp Effort & Inspection: normal respiratory effort Auscultation: clear to auscultation bilaterally, no crackles, no rales and diminished lung sounds Cardio Jugular venous distension: JVD Rate: tachycardic Rhythm: abnormal rhythm irregularly irregular Heart sounds: S1 abnormal and S2 abnormal Skin General skin exam: no rashes or lesions noted Neuro General: patient oriented x3 Extrem General: No clubbing, No cyanosis and Yes edema Objective Labs and Meds Result diagrams: 02/06/22 06:00 02/06/22 06:00 Progress Note: A&P Assessment and plan (1) Acute congestive heart failure: Status: Acute Assessment and Plan: Patient with right heart failure symptoms. Clinically improving slowly. Continue IV diuresis. Strict intake and output chart needs to be pursued. Discussed management with him. In the long run will require oral diuretic regimen to prevent recurrent hospitalization due to heart failure. This was discussed with him. Add low-dose Aldactone therapy. Continue rate control as b alexandra. Will continue to follow with you. (2) Atrial fibrillation with rapid ventricular response: Status: Acute Assessment and Plan: Atrial fibrillation with better rate control. Continue metoprolol as well as digoxin. Blood pressure is on the lower side currently. Cannot maximize metop rolol therapy. Continue underlying infectious etiology with cellulitis. Will follow with you. Thank you for allowing us to partake in his care Time Spent With Patient Time: Total time spent is greater than 50% in coordination of care (as documented) at patient's floor/unit and/or counseling patient: Progress Note: Quality Stroke Does the patient have a stroke diagnosis?: No Procedures Date of Service Date of Service: 02/07/22
[2022-02-07] MEDS: Rivaroxaban 20 MG TABLET PO (21:17)
[2022-02-07] MEDS: Metoprolol Tartrate 25 MG TABLET PO (21:17)
[2022-02-07] MEDS: dilTIAZem HCL 125 MG in 0.9 % Sodium Chloride 100 ML IVCONT (21:23)
--- NOTE | 2022-02-07 23:47 | PM.EVENT ---
Event Note Date of Service: 02/07/22 Event Note: Hematuria: Patient has Oneill bag noted to have bright red hematuria with clots. Patient started on bladder irrigation Urology consult Xarelto held until cleared by Urology. UA sent-pending results
[2022-02-08 00:24] LABS: B Type Natriuretic Peptide 513 pg/mL (<100)
[2022-02-08 01:34] LABS: Appearance Urine TURBID; Color Urine RED; Glucose Urine UA NEG (NEG); Leukocyte Esterase Urine 1+ (NEG); Nitrite Urine NEG (NEG); PH 6.5 (5.0-8.0); Specific Gravity - Urine 1.015 (1.005-1.025); Urine Blood 3+ (NEG); Urine Ketones NEG (NEG); Urine Protein 2+ MG/DL (NEG-TRACE)
[2022-02-08 01:48] LABS: Bacteria Urine TRACE /LPF; Mucus Urine 1+ /LPF; RBC Urine TNTC /HPF (0); Squamous Epithelial Cell Urine 1+ /LPF
[2022-02-08] MEDS: HYDROmorphone HCl 0.5 MG/0.5 ML SYRINGE IVPUSH ×4 (02:21→20:02)
[2022-02-08] MEDS: cefTRIAXone sodium 1 GM in 0.9 % Sodium Chloride 50 ML IV (02:26)
[2022-02-08 03:46] VITALS: BP 132/60; PULSE 124; RESP 20; TEMP 36.8; O2SAT 97
[2022-02-08] MEDS: Metoprolol Tartrate 25 MG TABLET PO ×4 (04:46→20:01)
[2022-02-08 06:38] LABS: Anion Gap 14 (12-20); Blood Urea Nitrogen 12 mg/dL (9-16); Calcium 8.3 mg/dL (8.4-10.2); Carbon Dioxide 25 mmol/L (22-29); Chloride 102 mmol/L (96-108); Creatinine Clr Calc Pharmacy 167.8; Estimated Glomerular Filt Rate > 60; Glucose Random 125 mg/dL (60-115); Potassium 3.3 mmol/L (3.3-5.1); Sodium 138 mmol/L (135-145)
[2022-02-08 07:22] VITALS: BP 105/65; PULSE 80; RESP 18; TEMP 36.7; O2SAT 97
[2022-02-08] MEDS: Furosemide 40 MG/4 ML VIAL IVPUSH ×2 (08:33→15:58)
[2022-02-08] MEDS: 0.9 % Sodium Chloride Flush 3 ML SYRINGE IVFLUSH ×3 (08:33→20:02)
[2022-02-08] MEDS: Omeprazole 20 MG CAPSULE.DR PO ×2 (08:33→20:01)
[2022-02-08] MEDS: Doxycycline Hyclate 100 MG in 0.9 % Sodium Chloride 250 ML 166.67 MG IV ×2 (08:35→20:01)
[2022-02-08] MEDS: Digoxin 0.125 MG TABLET PO (08:35)
[2022-02-08] MEDS: Fenofibrate 160 MG TABLET PO (08:35)
--- NOTE | 2022-02-08 11:05 | P.PNIM_ITS ---
Subjective Subjective Date of Service: 02/08/22 Interval History: Seen in f/u for heart failure, afib with RVR, had hematuria overnight and is on CBI Interval history: overall feels better, HR is better controleed, started on CBI last night due to hematuria Review of Systems no palpitation no chest pain Physical Exam Vital Signs: Vital Signs: Last Vital Signs Temp 98.0 F 02/08/22 07:22 Pulse 80 02/08/22 07:22 Resp 18 02/08/22 07:22 BP 105/65 02/08/22 07:22 Pulse Ox 97 02/08/22 07:22 O2 Del Method 02/08/22 07:22 O2 Flow Rate 2 02/08/22 07:22 BMI result Body Mass Index 66.9 Const: Other: General: AO X 3, no acute distress Resp: CTA bilateral, no accessory muscle use CVS: S1,S2, iregular iregular, 2+ leg edame GI: +BS, NT, no distention Skin: No rash, Neuro: motor grossly intact Psych: appropriate affect Objective Data Active Medications Digoxin (Digoxin 0.125 Mg Tablet) 0.125 mg PO DAILY [facility] Last Admin: 02/08/22 08:35 Dose: 0.125 mg Documented By: ARTI Diltiazem HCl (Diltiazem Hcl 50 Mg/10 Ml Vial) 10 mg IVPUSH Q6H PRN PRN Reason: HR>125 Last Admin: 02/06/22 10:46 Dose: 10 mg Documented By: LORI Fenofibrate (Fenofibrate 160 Mg Tablet) 160 mg PO DAILY [facility] Last Admin: 02/08/22 08:35 Dose: 160 mg Documented By: ARTI Furosemide (Furosemide 40 Mg/4 Ml Vial) 40 mg IVPUSH BIDWM [facility]; Protocol Last Admin: 02/08/22 08:33 Dose: 40 mg Documented By: ARTI Hydromorphone HCl (Hydromorphone Hcl 0.5 Mg/0.5 Ml Syringe) 0.5 mg IVPUSH Q4H PRN; Protocol PRN Reason: Pain, Severe (Pain Scale 7-10) Last Admin: 02/08/22 10:25 Dose: 0.5 mg Documented By: ARTI Diltiazem HCl 125 mg/ Sodium (Chloride) 125 mls @ 0 mls/hr IVCONT .Q0M [facility]; Protocol Last Titration: 02/08/22 03:55 Dose: 10 mg/hr, 10 mls/hr Documented By: MICHELL Doxycycline Hyclate 100 mg/ (Sodium Chloride) 250 mls @ 166.67 mls/hr IV Q12H [facility] Last Admin: 02/08/22 08:35 Dose: 166.67 mls/hr Documented By: ARTI Ceftriaxone Sodium 1 gm/ (Sodium Chloride) 50 mls @ 100 mls/hr IV Q24H [facility] Last Infusion: 02/08/22 03:53 Dose: 0 mls/hr Documented By: MICHELL Melatonin (Melatonin 3 Mg Tablet) 6 mg PO BEDTIME PRN PRN Reason: Insomnia Metoprolol Tartrate (Metoprolol Tartrate 25 Mg Tablet) 25 mg PO Q6H [facility]; Protocol Last Admin: 02/08/22 08:34 Dose: 25 mg Documented By: ARTI Non-Formulary Medication (Dutasteride) 1 cap PO BEDTIME [facility] Omeprazole (Omeprazole 20 Mg Capsule.Dr) 20 mg PO BID [facility] Last Admin: 02/08/22 08:33 Dose: 20 mg Documented By: ARTI Rivaroxaban (Rivaroxaban 20 Mg Tablet) 20 mg PO BEDTIME [facility] Last Admin: 02/07/22 21:17 Dose: 20 mg Documented By: MICHELL Senna (Sennosides 8.6 Mg Tablet) 17.2 mg PO BEDTIME PRN PRN Reason: Constipation Sodium Chloride (0.9 % Sodium Chloride Flush 3 Ml Syringe) 3 ml IVFLUSH QSHIFT [facility] Last Admin: 02/08/22 08:33 Dose: 3 ml Documented By: ARTI Labs CBC & Chem 7: 02/06/22 06:00 02/08/22 05:37 Labs: Laboratory Results - last 24 hr 02/07/22 02/08/22 02/08/22 18:53 01:15 05:37 Anion Gap 14 Estim Creat Clear Calc 167.8 Estimated GFR > 60 Random Glucose 125 H Calcium 8.3 L B-Natriuretic Peptide 513 H Urine Color RED A Urine Appearance TURBID Urine pH 6.5 Ur Specific [place] 1.015 Urine Protein 2+ H Urine Glucose (UA) NEG Urine Ketones NEG Urine Blood 3+ H Urine Nitrite NEG Ur Leukocyte Esterase 1+ H Urine RBC TNTC H Urine WBC 10-14 H Ur Squamous Epith Cells 1+ Urine Bacteria TRACE Urine Mucus 1+ Urine Yeast 1+ Microbiology Microbiology Results: Microbiology 02/06/22 01:11 Blood Culture - Preliminary Blood - Venous No growth after 48 hours. 02/06/22 01:11 Blood Culture - Preliminary Blood - Venous No growth after 48 hours. 02/05/22 20:01 Blood Culture - Preliminary Blood - Venous No growth after 48 hours. 02/05/22 20:01 Blood Culture - Preliminary Blood - Venous No growth after 48 hours. Assessment and Plan (1) Atrial fibrillation with rapid ventricular response: Status: Acute (2) Acute congestive heart failure: Status: Acute Plan 76-year-old male with a past medical history of hypertension, hyperlipidemia, CAD status post CABG, CHF, COPD, recent admission to the hospital for anemia secondary to GI bleed; presented to the hospital today with a chief complaint of bilateral leg swelling/fatigue.? Noted to have acute CHF/right lower extremity cellulitis.? Admitted for further management. RLE cellulitis:? improving, continue Doxy Chronic/persistent AFib with RVR: rate is better controlled now -wean off IV cardizem, continue dig, Metoprolol -cardiology following - Xarelto on hold d/t hematuria Acute systolic CHF exacerbation, marked leg edema Daily weights and I's and O's Lasix 40 mg IV b.i.d., negative 4800 liters cardiology followin, Continue metoprolol, currently 25 q6 Hematuria--likely from traumatic narayan, CBI is clear, will likely dc soon, urology consult pending History of hypertension:?continue [place], restat lisinpril when BP is better History of anemia: Continue home iron supplementation DVT prophylaxis:? xarelto on hold d/t hematuria, compression device Inaptient for AFIB with need IV med for control, ongoing continuus cardiac mo nitoring Quality Stroke Does the patient have a stroke diagnosis?: No VTE Prior VTE?: No VTE Risk Level:: Medical - moderate - high VTE Device Contraindication: Treatment Not Indicated VTE Drug Contraindication: N/A - Med Ordered
--- NOTE | 2022-02-08 11:12 | P.PNCA_ITS ---
Subjective Subjective Date of Service: 02/08/22 Principal diagnosis: CHF Interval history: patient's leg edema is improved. Diuresing well. Blood pressure is better. Heart rate is better controlled. Denies shortness of breath. overnight developed some blood-tinged urine. Currently getting bladder irrigation Review of Systems Constitutional: Reports lethargy Eyes: Reports no additional eye complaints Cardiovascular: Reports no additional cardiovascular complaints Respiratory: Reports no additional respiratory complaints Gastrointestinal: Reports no additional gastrointestinal complaints Musculoskeletal: Reports no additional musculoskeletal complaints Skin/Breast: Reports system reviewed and no additional complaints, except as docu Physical Exam Vital Signs: Last Vital Signs Temp 98.0 F 02/08/22 07:22 Pulse 80 02/08/22 07:22 Resp 18 02/08/22 07:22 BP 105/65 02/08/22 07:22 Pulse Ox 97 02/08/22 07:22 O2 Del Method 02/08/22 07:22 O2 Flow Rate 2 02/08/22 07:22 BMI result Body Mass Index 66.9 Const General: cooperative, comfortable and no acute distress Nutritional Appearance: obese Orientation/consciousness: patient oriented x3 Neck Neck: Yes trachea midline, Yes supple and Yes JVD Resp Effort & Inspection: normal respiratory effort Auscultation: clear to auscultation bilaterally, no crackles, no rales and diminished lung sounds Cardio Jugular venous distension: JVD Rate: tachycardic Rhythm: abnormal rhythm irregularly irregular Heart sounds: S1 abnormal and S2 abnormal Skin General skin exam: no rashes or lesions noted Neuro General: patient oriented x3 Extrem General: No clubbing, No cyanosis and Yes edema Objective Labs and Meds Result diagrams: 02/06/22 06:00 02/08/22 05:37 Lab results: Laboratory Results - last 24 hr 02/07/22 02/08/22 02/08/22 18:53 01:15 05:37 Sodium 138 Potassium 3.3 Chloride 102 Carbon Dioxide 25 Anion Gap 14 BUN 12 Creatinine 0.70 Estim Creat Clear Calc 167.8 Estimated GFR > 60 Random Glucose 125 H Calcium 8.3 L B-Natriuretic Peptide 513 H Urine Color RED A Urine Appearance TURBID Urine pH 6.5 Ur Specific [place] 1.015 Urine Protein 2+ H Urine Glucose (UA) NEG Urine Ketones NEG Urine Blood 3+ H Urine Nitrite NEG Ur Leukocyte Esterase 1+ H Urine RBC TNTC H Urine WBC 10-14 H Ur Squamous Epith Cells 1+ Urine Bacteria TRACE Urine Mucus 1+ Urine Yeast 1+ Progress Note: A&P Assessment and plan (1) Acute congestive heart failure: Status: Acute Assessment and Plan: acute congestive heart failure predominantly right-sided heart failure. Doing much better with much improved fluid status but still appears to be fluid overloaded. Continue IV diuresis. Strict intake and output chart needs to be pursued. Heart failure most likely related to persistent chronic atrial fibrillation along with diastolic dysfunction underlying coronary disease. Will require ischemic workup as an outpatient. Add Jardiance 10 mg to his regimen an d Aldactone 12.5 mg to his regimen. Follow renal function and check BNP tomorrow. Continue rate control as below. (2) Atrial fibrillation with rapid ventricular response: Status: Acute Assessment and Plan: Atrial fibrillation with adequate rate control at this point time. Continue metoprolol and can switch to metoprolol 50 mg b.i.d.. Continue digoxin 0.125 mg daily. Continue full oral anticoagulation with Xarelto. Will continue to follow with you Time Spent With Patient Time: Total time spent is greater than 50% in coordination of care (as documented) at patient's floor/unit and/or counseling patient: Progress Note: Quality Stroke Does the patient have a stroke diagnosis?: No Procedures Date of Service Date of Service: 02/08/22
[2022-02-08 11:30] VITALS: BP 103/55; PULSE 94; RESP 18; TEMP 36.4; O2SAT 97
[2022-02-08] MEDS: dilTIAZem HCL 125 MG in 0.9 % Sodium Chloride 100 ML 10 MG IVCONT (11:33)
[2022-02-08] MEDS: Spironolactone 25 MG TABLET PO (12:40)
[2022-02-08] MEDS: Empagliflozin 10 MG TABLET PO (12:40)
[2022-02-08 15:08] VITALS: BP 104/58; PULSE 99; RESP 18; TEMP 36.7; O2SAT 99
--- NOTE | 2022-02-08 19:12 | P.CNUR_ITS ---
History of Present Illness Consult details Consult date: 02/08/22 Narrative: Consulting complaint hematuria 76-year-old male admitted with CHF and lower extremity cellulitis. Managed with diuretic and significant negative fluid balance. Oneill catheter placed. Hematuria developed. Had been on Xarelto which is now held Background of BPH with dutasteride Resume Xarelto when urine clear for 48 hours Remove catheter when no longer necessary to measure urine output Review of Systems Constitutional: Constitutional: Reports as per HPI and Reports no additional constitutional complaints Cardiovascular: Cardiovascular: Reports as per HPI and Reports no additional cardiovascular complaints Respiratory: Respiratory: Reports as per HPI and Reports no additional respiratory complaints Gastrointestinal: Gastrointestinal: Reports as per HPI and Reports no additional gastrointestinal complaints Genitourinary: Genitourinary: Reports as per HPI Musculoskeletal: Musculoskeletal: Reports no additional musculoskeletal complaints and Reports as per HPI Neurologic: Reports system reviewed and no additional complaints, except as documented and Reports as per HPI PMFSH Past Medical History Medical History Acute blood loss anemia Acute upper gastrointestinal bleeding Afib CAD (coronary artery disease) COPD (chronic obstructive pulmonary disease) Hyperlipidemia Nasal sinus tumor Surgical History Surgical History Hx of CABG Social History Social History Household Members: Spouse Housing: House Do you presently have visiting nurse or other home services: No Alcohol intake: current Alcohol intake frequency: 0-2 drinks per day Alcohol type: beer Patient Tobacco Use Status: Former Tobacco user service: Yes Current occupational status: retired Meds Allergies Allergy/AdvReac Type Severity Reaction Status Date / Time No Known Allergies Allergy Verified 02/05/22 19:33 Active Medications: Current Medications Digoxin (Digoxin 0.125 Mg Tablet) 0.125 mg PO DAILY [facility] Last Admin: 02/08/22 08:35 Dose: 0.125 mg Diltiazem HCl (Diltiazem Hcl 50 Mg/10 Ml Vial) 10 mg IVPUSH Q6H PRN PRN Reason: HR>125 Last Admin: 02/06/22 10:46 Dose: 10 mg Empagliflozin (Empagliflozin 10 Mg Tablet) 10 mg PO DAILY [facility] Last Admin: 02/08/22 12:40 Dose: 10 mg Fenofibrate (Fenofibrate 160 Mg Tablet) 160 mg PO DAILY [facility] Last Admin: 02/08/22 08:35 Dose: 160 mg Furosemide (Furosemide 40 Mg/4 Ml Vial) 40 mg IVPUSH BIDWM [facility]; Protocol Last Admin: 02/08/22 15:58 Dose: 40 mg Hydromorphone HCl (Hydromorphone Hcl 0.5 Mg/0.5 Ml Syringe) 0.5 mg IVPUSH Q4H PRN; Protocol PRN Reason: Pain, Severe (Pain Scale 7-10) Last Admin: 02/08/22 16:00 Dose: 0.5 mg Diltiazem HCl 125 mg/ Sodium (Chloride) 125 mls @ 0 mls/hr IVCONT .Q0M [facility]; Protocol Last Admin: 02/08/22 11:33 Dose: 10 mg/hr, 10 mls/hr Doxycycline Hyclate 100 mg/ (Sodium Chloride) 250 mls @ 166.67 mls/hr IV Q12H [facility] Last Infusion: 02/08/22 11:37 Dose: Infused Ceftriaxone Sodium 1 gm/ (Sodium Chloride) 50 mls @ 100 mls/hr IV Q24H [facility] Last Infusion: 02/08/22 03:53 Dose: Infused Melatonin (Melatonin 3 Mg Tablet) 6 mg PO BEDTIME PRN PRN Reason: Insomnia Metoprolol Tartrate (Metoprolol Tartrate 25 Mg Tablet) 25 mg PO Q6H [facility]; Protocol Last Admin: 02/08/22 15:58 Dose: 25 mg Non-Formulary Medication (Dutasteride) 1 cap PO BEDTIME [facility] Omeprazole (Omeprazole 20 Mg Capsule.Dr) 20 mg PO BID [facility] Last Admin: 02/08/22 08:33 Dose: 20 mg Rivaroxaban (Rivaroxaban 20 Mg Tablet) 20 mg PO BEDTIME [facility] Last Admin: 02/07/22 21:17 Dose: 20 mg Senna (Sennosides 8.6 Mg Tablet) 17.2 mg PO BEDTIME PRN PRN Reason: Constipation Sodium Chloride (0.9 % Sodium Chloride Flush 3 Ml Syringe) 3 ml IVFLUSH QSHIFT [facility] Last Admin: 02/08/22 15:58 Dose: 3 ml Spironolactone (Spironolactone 25 Mg Tablet) 25 mg PO DAILY [facility]; Protocol Last Admin: 02/08/22 12:40 Dose: 25 mg Home Medications Medication Instructions Recorded Confirmed Last Taken Type atorvastatin 40 mg tablet 1 tab PO BEDTIME 01/17/22 02/06/22 01/16/22 History budesonide-formoterol HFA 160 1 puff PO BID 01/17/22 02/06/22 01/17/22 History mcg-4.5 mcg/actuation aerosol inhaler (Symbicort) diltiazem HCl 240 mg capsule,24 1 cap PO DAILY 01/17/22 02/06/22 01/17/22 History hr,extended release dutasteride 0.5 mg capsule 1 cap PO BEDTIME 01/17/22 02/06/22 01/16/22 History fenofibrate nanocrystallized 145 1 tab PO DAILY 01/17/22 02/06/22 01/17/22 History mg tablet furosemide 40 mg tablet 1 tab PO DAILY 01/17/22 02/06/22 01/16/22 History lisinopril 20 mg tablet 1 tab PO DAILY 01/17/22 02/06/22 01/17/22 History rivaroxaban 20 mg tablet (Xarelto) 1 tab PO BEDTIME 01/17/22 02/06/22 01/16/22 History Physical Exam Vital Signs: Vital Signs: Last Vital Signs Temp 98.0 F 02/08/22 15:08 Pulse 99 02/08/22 15:08 Resp 18 02/08/22 15:08 BP 104/58 L 02/08/22 15:08 Pulse Ox 99 02/08/22 15:08 O2 Del Method 02/08/22 15:08 O2 Flow Rate 2 02/08/22 15:08 BMI result Body Mass Index 66.9 Const: General: cooperative, healthy appearing, comfortable and no acute distress Orientation/consciousness: patient oriented x3 HEENT: Face and sinus: Yes normal facial exam Mouth: moist mucous membranes Neck: Neck: Yes normal visual inspection, Yes full ROM and Yes trachea midline Chest: Chest palpation & inspection: normal inspection of the chest Resp: Effort & Inspection: normal respiratory effort, able to speak in complete sentences and no respiratory distress GI: Inspection: Yes normal to inspection Back/Spine/Pelvis: Cervical Spine: normal cervical lordosis Thoracic/Lumbar Spine: thoracic and lumbar spine normal to inspection Skin: General skin exam: no rashes or lesions noted Neuro: General: patient oriented x3, tone normal and moves all extremities Extrem: General: Yes normal to inspection and Yes capillary refill normal Results Labs Result diagrams: 02/06/22 06:00 02/11/22 07:33 Labs: Abnormal lab results 02/07/22 02/08/22 02/08/22 Range/Units 18:53 01:15 05:37 Random Glucose 125 H (60-115) mg/dL Calcium 8.3 L (8.4-10.2) mg/dL B-Natriuretic Peptide 513 H (<100) pg/mL Urine Color RED A Urine Protein 2+ H (NEG-TRACE) MG/DL Urine Blood 3+ H (NEG) Ur Leukocyte Esterase 1+ H (NEG) Urine RBC TNTC H (0) /HPF Urine WBC 10-14 H (0-4) /HPF BMP 02/08/22 05:37 Sodium 138 Potassium 3.3 Chloride 102 Carbon Dioxide 25 BUN 12 Creatinine 0.70 Calcium 8.3 L Urine 02/08/22 Range/Units 01:15 Urine Color RED A Urine Appearance TURBID Urine pH 6.5 (5.0-8.0) Ur Specific [place] 1.015 (1.005-1.025) Urine Protein 2+ H (NEG-TRACE) MG/DL Urine Glucose (UA) NEG (NEG) MG/DL All other labs normal. Assessment and Plan (1) Gross hematuria: Status: Acute Plan Removed catheter when urine is clear and no longer requires measurements for congestive heart failure Procedures Date of Service Date of Service: 02/09/22
[2022-02-08 19:18] VITALS: BP 102/54; PULSE 86; RESP 18; TEMP 36.7; O2SAT 98
[2022-02-08 23:59] VITALS: BP 100/57; PULSE 81; RESP 16; TEMP 36.5; O2SAT 95
[2022-02-09] VITALS (10 sets, daily range): BP systolic 101–126; BP diastolic 53–65; PULSE 60–120; RESP 18–20; TEMP 36.2–37.1; O2SAT 93–98
[2022-02-09] MEDS: dilTIAZem HCL 125 MG in 0.9 % Sodium Chloride 100 ML IVCONT (01:38)
[2022-02-09] MEDS: cefTRIAXone sodium 1 GM in 0.9 % Sodium Chloride 50 ML IV (01:38)
[2022-02-09] MEDS: Metoprolol Tartrate 25 MG TABLET PO ×4 (03:30→19:23)
[2022-02-09] MEDS: HYDROmorphone HCl 0.5 MG/0.5 ML SYRINGE IVPUSH ×3 (06:38→19:24)
[2022-02-09] MEDS: Furosemide 40 MG/4 ML VIAL IVPUSH ×2 (09:02→17:00)
[2022-02-09] MEDS: Doxycycline Hyclate 100 MG in 0.9 % Sodium Chloride 250 ML 166.67 MG IV ×2 (09:02→19:24)
[2022-02-09] MEDS: Empagliflozin 10 MG TABLET PO (09:03)
[2022-02-09] MEDS: Spironolactone 25 MG TABLET PO (09:03)
[2022-02-09] MEDS: Omeprazole 20 MG CAPSULE.DR PO ×2 (09:03→19:23)
[2022-02-09] MEDS: Digoxin 0.125 MG TABLET PO (09:03)
[2022-02-09] MEDS: Fenofibrate 160 MG TABLET PO (09:04)
[2022-02-09 10:04] LABS: Anion Gap 12 (12-20); Blood Urea Nitrogen 14 mg/dL (9-16); Calcium 8.6 mg/dL (8.4-10.2); Carbon Dioxide 28 mmol/L (22-29); Chloride 104 mmol/L (96-108); Creatinine Clr Calc Pharmacy 163.1; Estimated Glomerular Filt Rate > 60; Glucose Random 131 mg/dL (60-115); Potassium 3.5 mmol/L (3.3-5.1); Sodium 140 mmol/L (135-145)
[2022-02-09 10:11] LABS: B Type Natriuretic Peptide 647 pg/mL (<100)
--- NOTE | 2022-02-09 12:41 | P.PNIM_ITS ---
Subjective Subjective Date of Service: 02/09/22 Interval History: Seen in f/u for heart failure, afib with RVR, had hematuria overnight and is on CBI Interval history: Feels better, weak, AFIB rate is better controlled, hematuria has stopped Review of Systems no chest pain +leg edema no confusion no fever Physical Exam Vital Signs: Vital Signs: Last Vital Signs Temp 98.2 F 02/09/22 11:03 Pulse 76 02/09/22 11:03 Resp 20 02/09/22 11:03 BP 107/59 L 02/09/22 11:03 Pulse Ox 98 02/09/22 11:03 O2 Del Method 02/09/22 11:03 O2 Flow Rate 3 02/09/22 11:03 BMI result Body Mass Index 66.9 Const: Other: General: AO X 3, no acute distress Resp: CTA bilateral CVS: S1,S2, iregular, +2 pedal edema GI: +BS, NT, no distention Skin: No rash, mild erythema of lower leg Neuro: motor grossly intact Psych: appropriate affect Objective Data Active Medications Digoxin (Digoxin 0.125 Mg Tablet) 0.125 mg PO DAILY [facility] Last Admin: 02/09/22 09:03 Dose: 0.125 mg Documented By: LON Diltiazem HCl (Diltiazem Hcl 50 Mg/10 Ml Vial) 10 mg IVPUSH Q6H PRN PRN Reason: HR>125 Last Admin: 02/06/22 10:46 Dose: 10 mg Documented By: LORI Empagliflozin (Empagliflozin 10 Mg Tablet) 10 mg PO DAILY [facility] Last Admin: 02/09/22 09:03 Dose: 10 mg Documented By: LON Fenofibrate (Fenofibrate 160 Mg Tablet) 160 mg PO DAILY [facility] Last Admin: 02/09/22 09:04 Dose: 160 mg Documented By: LON Furosemide (Furosemide 40 Mg/4 Ml Vial) 40 mg IVPUSH BIDWM [facility]; Protocol Last Admin: 02/09/22 09:02 Dose: 40 mg Documented By: LON Hydromorphone HCl (Hydromorphone Hcl 0.5 Mg/0.5 Ml Syringe) 0.5 mg IVPUSH Q4H PRN; Protocol PRN Reason: Pain, Severe (Pain Scale 7-10) Last Admin: 02/09/22 06:38 Dose: 0.5 mg Documented By: ERNIE Diltiazem HCl 125 mg/ Sodium (Chloride) 125 mls @ 0 mls/hr IVCONT .Q0M [facility]; Protocol Last Admin: 02/09/22 01:38 Dose: 5 mg/hr, 5 mls/hr Documented By: ERNIE Doxycycline Hyclate 100 mg/ (Sodium Chloride) 250 mls @ 166.67 mls/hr IV Q12H [facility] Last Infusion: 02/09/22 10:34 Dose: 0 mls/hr Documented By: LON Ceftriaxone Sodium 1 gm/ (Sodium Chloride) 50 mls @ 100 mls/hr IV Q24H [facility] Last Infusion: 02/09/22 02:17 Dose: 0 mls/hr Documented By: ERNIE Melatonin (Melatonin 3 Mg Tablet) 6 mg PO BEDTIME PRN PRN Reason: Insomnia Metoprolol Tartrate (Metoprolol Tartrate 25 Mg Tablet) 25 mg PO Q6H [facility]; Protocol Last Admin: 02/09/22 09:03 Dose: 25 mg Documented By: LON Non-Formulary Medication (Dutasteride) 1 cap PO BEDTIME [facility] Omeprazole (Omeprazole 20 Mg Capsule.Dr) 20 mg PO BID [facility] Last Admin: 02/09/22 09:03 Dose: 20 mg Documented By: LON Rivaroxaban (Rivaroxaban 20 Mg Tablet) 20 mg PO BEDTIME [facility] Last Admin: 02/07/22 21:17 Dose: 20 mg Documented By: MICHELL Senna (Sennosides 8.6 Mg Tablet) 17.2 mg PO BEDTIME PRN PRN Reason: Constipation Sodium Chloride (0.9 % Sodium Chloride Flush 3 Ml Syringe) 3 ml IVFLUSH QSHIFT [facility] Last Admin: 02/09/22 08:49 Dose: Not Given Documented By: LON Non-Admin Reason: IV Running Spironolactone (Spironolactone 25 Mg Tablet) 25 mg PO DAILY [facility]; Protocol Last Admin: 02/09/22 09:03 Dose: 25 mg Documented By: LON Labs CBC & Chem 7: 02/06/22 06:00 02/09/22 09:30 Labs: Laboratory Results - last 24 hr 02/09/22 02/09/22 09:30 09:30 Anion Gap 12 Estim Creat Clear Calc 163.1 Estimated GFR > 60 Random Glucose 131 H Calcium 8.6 B-Natriuretic Peptide 647 H Assessment and Plan (1) Atrial fibrillation with rapid ventricular response: Status: Acute (2) Acute congestive heart failure: Status: Acute Plan 76-year-old male with a past medical history of hypertension, hyperlipidemia, CAD status post CABG, CHF, COPD, recent admission to the hospital for anemia secondary to GI bleed; presented to the hospital today with a chief complaint of bilateral leg swelling/fatigue.? Noted to have acute CHF/right lower extremity cellulitis.? Admitted for further management. persistent AFib with RVR: rate is better controlled now controlled. Off IV cardizem, continue dig, Metoprolol -cardiology following - Xarelto on hold for another 24 hours for hematuria Acute systolic CHF exacerbation, marked leg edema Daily weights and I's and O's Lasix 40 mg IV b.i.d., negative 4000 liters thus far cardiology followin, Continue metoprolol, currently 25 q6, Aldactone 25 daily RLE cellulitis:? improving, continue Doxy Hematuria--likely from traumatic narayan, CBI is clear, will likely dc soon, urology advises resuming Xarelto 48 hours when you urine is clear History of hypertension:?continue metorpolo, restat lisinpril when BP is better History of anemia: Continue home iron supplementation DVT prophylaxis:? xarelto on hold d/t hematuria, compression device Inaptient for AFIB with need IV med for control, heart failuyre needing IV diuretics, ongoing continuus cardiac monitoring PT eval for deconditioning and likely rehab palcement once medically better Quality Stroke Does the patient have a stroke diagnosis?: No VTE Prior VTE?: No VTE Risk Level:: Medical - moderate - high VTE Device Contraindication: Treatment Not Indicated VTE Drug Contraindication: N/A - Med Ordered
--- NOTE | 2022-02-09 12:59 | MHC.CM.PN ---
per rounds pt not expected to be dcd this w/e
--- NOTE | 2022-02-09 13:10 | PM.PNCARD ---
Subjective Subjective Date of Service: 02/09/22 Principal diagnosis: CHF Interval history: Patient output chart is showing more positive balance. Overall still has 4 L of negative balance since admission. His leg edema is improved. He continues to have pain on weight-bearing on his right leg. Also developed some hematuria last night and his Xarelto is on hold. He is currently on Cardizem drip due to rapid heart rate. Heme self denies any shortness of breath although he has cough he says and he is laying down. BNP is still elevated. Review of Systems Constitutional: Reports no additional constitutional complaints Eyes: Reports no additional eye complaints Cardiovascular: Denies chest pain, Denies rapid heart rate, Reports leg edema, Denies palpitations, Denies dyspnea and Denies orthopnea Respiratory: Denies dyspnea Gastrointestinal: Reports no additional gastrointestinal complaints Skin/Breast: Reports system reviewed and no additional complaints, except as docu Endocrine: Denies palpitations Physical Exam Vital Signs: Last Vital Signs Temp 98.2 F 02/09/22 11:03 Pulse 76 02/09/22 11:03 Resp 20 02/09/22 11:03 BP 107/59 L 02/09/22 11:03 Pulse Ox 98 02/09/22 11:03 O2 Del Method 02/09/22 11:03 O2 Flow Rate 3 02/09/22 11:03 BMI result Body Mass Index 66.9 Const General: cooperative, comfortable, no acute distress, alert and awake Orientation/consciousness: patient oriented x3 Neck Neck: Yes trachea midline, Yes supple and Yes JVD Resp Effort & Inspection: normal respiratory effort Auscultation: no wheezes and diminished lung sounds Cardio Jugular venous distension: JVD Rhythm: abnormal rhythm irregularly irregular Heart sounds: S1 normal heart sound present and S2 normal heart sound present GI Inspection: Yes obesity Auscultation: normal bowel sounds Skin General skin exam: no rashes or lesions noted Neuro General: patient oriented x3 and no focal motor deficits Extrem General: Yes edema Objective Labs and Meds Result diagrams: 02/06/22 06:00 02/09/22 09:30 Lab results: Laboratory Results - last 24 hr 02/09/22 02/09/22 09:30 09:30 Sodium 140 Potassium 3.5 Chloride 104 Carbon Dioxide 28 Anion Gap 12 BUN 14 Creatinine 0.72 Estim Creat Clear Calc 163.1 Estimated GFR > 60 Random Glucose 131 H Calcium 8.6 B-Natriuretic Peptide 647 H Progress Note: A&P Assessment and plan (1) Acute congestive heart failure: Status: Acute Assessment and Plan: Patient's heart failure slowly improving although BNP is still elevated. Switch to IV Lasix drip at 10 mg an hour. Strict intake and output chart needs to pursue. Continue BMP and BNP check every day. Replace electrolytes as needed. Continue other heart failure medications. Management was discussed with the patient patient's family. Out of bed to chair as well as incentive spirometry and physical therapy consult. Heart failure education to be provided. (2) Atrial fibrillation with rapid ventricular response: Status: Acute Assessment and Plan: Atrial fibrillation with better rate control at this point time on IV Cardizem drip. Can switch in up titrate metoprolol to 50 mg q.8 hours. Continue digoxin therapy. Taper and discontinue Cardizem therapy. Has developed hematuria and will require holding office Xarelto for now. Urology consult. Once hematuria resolves can resume oral Xarelto therapy. Will continue to follow with you Time Spent With Patient Time: Total time spent is greater than 50% in coordination of care (as documented) at patient's floor/unit and/or counseling patient: Progress Note: Quality Stroke Does the patient have a stroke diagnosis?: No Procedures Date of Service Date of Service: 02/09/22
[2022-02-09] MEDS: 0.9 % Sodium Chloride Flush 3 ML SYRINGE IVFLUSH ×2 (13:45→19:24)
[2022-02-10] VITALS (7 sets, daily range): BP systolic 118–131; BP diastolic 56–63; PULSE 85–107; RESP 14–18; TEMP 36.6–38.2; O2SAT 92–94
[2022-02-10] MEDS: cefTRIAXone sodium 1 GM in 0.9 % Sodium Chloride 50 ML IV
[2022-02-10] MEDS: dilTIAZem HCL 125 MG in 0.9 % Sodium Chloride 100 ML IVCONT (05:13)
[2022-02-10] MEDS: Metoprolol Tartrate 25 MG TABLET PO ×4 (05:13→20:21)
[2022-02-10] MEDS: HYDROmorphone HCl 0.5 MG/0.5 ML SYRINGE IVPUSH ×3 (08:19→16:28)
[2022-02-10] MEDS: Digoxin 0.125 MG TABLET PO (08:19)
[2022-02-10] MEDS: Furosemide 40 MG/4 ML VIAL IVPUSH (08:19)
[2022-02-10] MEDS: Spironolactone 25 MG TABLET PO (08:19)
[2022-02-10] MEDS: Fenofibrate 160 MG TABLET PO (08:19)
[2022-02-10] MEDS: Omeprazole 20 MG CAPSULE.DR PO ×2 (08:19→20:21)
[2022-02-10] MEDS: Empagliflozin 10 MG TABLET PO (08:19)
[2022-02-10] MEDS: Doxycycline Hyclate 100 MG in 0.9 % Sodium Chloride 250 ML 166.67 MG IV (08:20)
[2022-02-10] MEDS: 0.9 % Sodium Chloride Flush 3 ML SYRINGE IVFLUSH ×3 (08:21→22:14)
[2022-02-10 09:05] LABS: Anion Gap 14 (12-20); Blood Urea Nitrogen 15 mg/dL (9-16); Calcium 8.3 mg/dL (8.4-10.2); Carbon Dioxide 25 mmol/L (22-29); Chloride 104 mmol/L (96-108); Creatinine Clr Calc Pharmacy 192.6; Estimated Glomerular Filt Rate > 60; Glucose Random 94 mg/dL (60-115); Potassium 3.2 mmol/L (3.3-5.1); Sodium 140 mmol/L (135-145)
--- NOTE | 2022-02-10 10:12 | HO.PM.IMPN ---
Subjective Subjective Date of Service: 02/10/22 Interval History: Seen in f/u for heart failure, afib with RVR, had hematuria overnight and is on CBI Interval history: Making progress, no shortness of breath less edema in the legs, albeit still significant Review of Systems no chest pain +leg edema no confusion no fever Physical Exam Vital Signs: Vital Signs: Last Vital Signs Temp 97.9 F 02/10/22 07:28 Pulse 90 02/10/22 07:28 Resp 18 02/10/22 07:28 BP 118/59 L 02/10/22 07:28 Pulse Ox 92 02/10/22 07:28 O2 Del Method 02/10/22 07:28 O2 Flow Rate 2 02/09/22 15:11 BMI result Body Mass Index 66.9 Const: Other: General: AO X 3, no acute distress Resp: CTA bilateral CVS: S1,S2, iregular, +2 pedal edema GI: +BS, NT, no distention Skin: No rash, mild erythema of lower leg Neuro: motor grossly intact Psych: appropriate affect Objective Data Active Medications Digoxin (Digoxin 0.125 Mg Tablet) 0.125 mg PO DAILY [facility] Last Admin: 02/10/22 08:19 Dose: 0.125 mg Documented By: KAM Diltiazem HCl (Diltiazem Hcl 50 Mg/10 Ml Vial) 10 mg IVPUSH Q6H PRN PRN Reason: HR>125 Last Admin: 02/06/22 10:46 Dose: 10 mg Documented By: LORI Empagliflozin (Empagliflozin 10 Mg Tablet) 10 mg PO DAILY [facility] Last Admin: 02/10/22 08:19 Dose: 10 mg Documented By: KAM Fenofibrate (Fenofibrate 160 Mg Tablet) 160 mg PO DAILY [facility] Last Admin: 02/10/22 08:19 Dose: 160 mg Documented By: KAM Hydromorphone HCl (Hydromorphone Hcl 0.5 Mg/0.5 Ml Syringe) 0.5 mg IVPUSH Q4H PRN; Protocol PRN Reason: Pain, Severe (Pain Scale 7-10) Last Admin: 02/10/22 08:19 Dose: 0.5 mg Documented By: KAM Diltiazem HCl 125 mg/ Sodium (Chloride) 125 mls @ 0 mls/hr IVCONT .Q0M [facility]; Protocol Last Admin: 02/10/22 05:13 Dose: 5 mg/hr, 5 mls/hr Documented By: ANTOIC Doxycycline Hyclate 100 mg/ (Sodium Chloride) 250 mls @ 166.67 mls/hr IV Q12H [facility] Last Infusion: 02/10/22 10:10 Dose: 0 mls/hr Documented By: KAM Ceftriaxone Sodium 1 gm/ (Sodium Chloride) 50 mls @ 100 mls/hr IV Q24H [facility] Last Infusion: 02/10/22 00:36 Dose: 0 mls/hr Documented By: ERNIE Furosemide 200 mg/ Sodium (Chloride) 100 mls @ 5 mls/hr IVCONT .Q20H [facility] Melatonin (Melatonin 3 Mg Tablet) 6 mg PO BEDTIME PRN PRN Reason: Insomnia Metoprolol Tartrate (Metoprolol Tartrate 25 Mg Tablet) 25 mg PO Q6H [facility]; Protocol Last Admin: 02/10/22 10:00 Dose: 25 mg Documented By: KAM Omeprazole (Omeprazole 20 Mg Capsule.Dr) 20 mg PO BID [facility] Last Admin: 02/10/22 08:19 Dose: 20 mg Documented By: KAM Potassium Chloride (Potassium Chloride Packet 20 Meq Packet) 40 meq PO ONCE ONE Stop: 02/10/22 10:04 Rivaroxaban (Rivaroxaban 20 Mg Tablet) 20 mg PO BEDTIME [facility] Last Admin: 02/07/22 21:17 Dose: 20 mg Documented By: JEANNIEAZ Senna (Sennosides 8.6 Mg Tablet) 17.2 mg PO BEDTIME PRN PRN Reason: Constipation Sodium Chloride (0.9 % Sodium Chloride Flush 3 Ml Syringe) 3 ml IVFLUSH QSHIFT [facility] Last Admin: 02/10/22 08:21 Dose: 3 ml Documented By: KAM Spironolactone (Spironolactone 25 Mg Tablet) 25 mg PO DAILY [facility]; Protocol Last Admin: 02/10/22 08:19 Dose: 25 mg Documented By: KAM Labs CBC & Chem 7: 02/06/22 06:00 02/10/22 08:40 Labs: Laboratory Results - last 24 hr 02/10/22 08:40 Anion Gap 14 Estim Creat Clear Calc 192.6 Estimated GFR > 60 Random Glucose 94 Calcium 8.3 L Assessment and Plan (1) Atrial fibrillation with rapid ventricular response: Status: Acute (2) Acute congestive heart failure: Status: Acute Plan 76-year-old male with a past medical history of hypertension, hyperlipidemia, CAD status post CABG, CHF, COPD, recent admission to the hospital for anemia secondary to GI bleed; presented to the hospital with bilateral leg swelling/fatigue, elevated BNO and . Noted to have acute CHF/right lower extremity cellulitis and AF with RVR. persistent AFib with RVR: rate is better controlled now controlled. Off IV cardizem,? continue dig, Metoprolol -cardiology following -Xarelto has been on hold d/t hematuria that Acute systolic CHF exacerbation, marked leg edema Daily weights and I's and O's ?Lasix 40 mg IV b.i.d., negative 4000 liters thus far cardiology followin, Continue metoprolol, currently 25 q6, Aldactone 25 daily RLE cellulitis:? improving, continue Doxy Hematuria--likely from traumatic narayan, CBI is clear, will likely dc soon, urology advises resuming Xarelto 48 hours when you urine is clear History of hypertension:?continue metorpolo, restat lisinpril when BP is better History of anemia: Continue home iron supplementation DVT prophylaxis:? xarelto on hold d/t hematuria, compression device Inaptient for AFIB with need IV med for control, heart failuyre needing IV diuretics, ongoing continuus cardiac monitoring PT eval for deconditioning and likely rehab palcement once medically better Quality Stroke Does the patient have a stroke diagnosis?: No VTE Prior VTE?: No VTE Risk Level:: Medical - moderate - high VTE Device Contraindication: Treatment Not Indicated VTE Drug Contraindication: N/A - Med Ordered
[2022-02-10] MEDS: Furosemide 200 MG in 0.9 % Sodium Chloride 80 ML IVCONT (11:42)
[2022-02-10] MEDS: Potassium Chloride Packet 20 MEQ PACKET 40 MEQ PO (11:42)
--- NOTE | 2022-02-10 12:34 | PM.PNCARD ---
Subjective Subjective Date of Service: 02/10/22 Principal diagnosis: CHF Interval history: Patient has diuresed well. Leg edema is improved significantly. No shortness of breath. Continues to have inability to bear weight on his right leg. Review of Systems Constitutional: Reports no additional constitutional complaints Cardiovascular: Reports no additional cardiovascular complaints Respiratory: Reports no additional respiratory complaints Musculoskeletal: Reports other (Pain on weight-bearing on the right leg) Reports system reviewed and no additional complaints, except as documented Endocrine: Reports no additional endocrine complaints Hematologic/Lymphatic: Reports no additional hematologic/lymphatic complaints Physical Exam Vital Signs: Last Vital Signs Temp 98.6 F 02/10/22 11:22 Pulse 92 02/10/22 11:22 Resp 17 02/10/22 11:22 BP 120/59 L 02/10/22 11:22 Pulse Ox 92 02/10/22 11:22 O2 Del Method 02/10/22 11:22 O2 Flow Rate 2 02/09/22 15:11 BMI result Body Mass Index 66.9 Const General: cooperative, comfortable, no acute distress, alert and awake Orientation/consciousness: patient oriented x3 Neck Neck: Yes trachea midline, Yes supple and Yes no JVD (Prominent V-waves) Resp Effort & Inspection: normal respiratory effort Auscultation: no wheezes and diminished lung sounds Cardio Jugular venous distension: no JVD Rhythm: abnormal rhythm irregularly irregular Heart sounds: S1 normal heart sound present and S2 normal heart sound present GI Inspection: Yes obesity Auscultation: normal bowel sounds Skin General skin exam: no rashes or lesions noted Neuro General: patient oriented x3 and no focal motor deficits Extrem General: No clubbing, No cyanosis and Yes edema (Much improved) Objective Labs and Meds Result diagrams: 02/06/22 06:00 02/10/22 08:40 Lab results: Laboratory Results - last 24 hr 02/10/22 08:40 Sodium 140 Potassium 3.2 L Chloride 104 Carbon Dioxide 25 Anion Gap 14 BUN 15 Creatinine 0.61 Estim Creat Clear Calc 192.6 Estimated GFR > 60 Random Glucose 94 Calcium 8.3 L Progress Note: A&P Assessment and plan (1) Acute congestive heart failure: Status: Acute Assessment and Plan: Patient much improved heart failure syndrome with predominant right heart failure syndrome. Switch to p.o. Bumex 2 mg b.i.d.. Trend BMP and BNP tomorrow. Replace electrolytes as needed. Better rate control is necessary. Heart failure management was discussed in details. Management and goals of therapy were discussed. Follow-up with primary integrated marketing specialist in 10 days (2) Atrial fibrillation with rapid ventricular response: Status: Acute Assessment and Plan: Atrial fibrillation borderline rate control. Continue digoxin. Increase metoprolol to 50 mg q.8 hours. Outpatient Holter monitor will be necessary. Out of bed to chair. Resume Xarelto 20 mg daily. Will sign of the case. Thank you for allowing us to partake in his care Time Spent With Patient Time: Total time spent is greater than 50% in coordination of care (as documented) at patient's floor/unit and/or counseling patient: Progress Note: Quality Stroke Does the patient have a stroke diagnosis?: No Procedures Date of Service Date of Service: 02/10/22
[2022-02-10] MEDS: Doxycycline Hyclate 100 MG in 0.9 % Sodium Chloride 250 ML 166.7 MG IV (20:21)
[2022-02-10] MEDS: Rivaroxaban 20 MG TABLET PO (20:21)
[2022-02-10] MEDS: Acetaminophen 325 MG TABLET 650 MG PO (22:14)
[2022-02-11] VITALS (9 sets, daily range): BP systolic 106–127; BP diastolic 56–65; PULSE 68–104; RESP 14–22; TEMP 36.2–37.3; O2SAT 93–96
[2022-02-11] MEDS: cefTRIAXone sodium 1 GM in 0.9 % Sodium Chloride 50 ML IV (01:08)
[2022-02-11] MEDS: Metoprolol Tartrate 25 MG TABLET PO ×2 (03:26→09:56)
[2022-02-11] MEDS: Furosemide 200 MG in 0.9 % Sodium Chloride 80 ML IVCONT (03:28)
[2022-02-11] MEDS: dilTIAZem HCL 125 MG in 0.9 % Sodium Chloride 100 ML IVCONT (05:25)
[2022-02-11] MEDS: Digoxin 0.125 MG TABLET PO (07:38)
[2022-02-11] MEDS: Fenofibrate 160 MG TABLET PO (07:38)
[2022-02-11] MEDS: Spironolactone 25 MG TABLET PO (07:39)
[2022-02-11] MEDS: Doxycycline Hyclate 100 MG in 0.9 % Sodium Chloride 250 ML 166.7 MG IV (07:39)
[2022-02-11] MEDS: Empagliflozin 10 MG TABLET PO (07:39)
[2022-02-11] MEDS: HYDROmorphone HCl 0.5 MG/0.5 ML SYRINGE IVPUSH ×3 (07:40→20:39)
[2022-02-11] MEDS: 0.9 % Sodium Chloride Flush 3 ML SYRINGE IVFLUSH ×3 (07:42→20:44)
[2022-02-11] MEDS: Omeprazole 20 MG CAPSULE.DR PO ×2 (07:47→20:37)
[2022-02-11 08:08] LABS: Anion Gap 13 (12-20); Blood Urea Nitrogen 15 mg/dL (9-16); Calcium 8.7 mg/dL (8.4-10.2); Carbon Dioxide 29 mmol/L (22-29); Chloride 98 mmol/L (96-108); Creatinine Clr Calc Pharmacy 154.5; Estimated Glomerular Filt Rate > 60; Glucose Random 124 mg/dL (60-115); Sodium 137 mmol/L (135-145)
--- NOTE | 2022-02-11 09:30 | P.PNIM_ITS ---
Subjective Subjective Date of Service: 02/11/22 Interval History: Seen in f/u for heart failure, afib with RVR, had hematuria overnight and is on CBI Interval history: No sob, rate is ok, leg edema much better Review of Systems no chest pain +leg edema no confusion no fever Physical Exam Vital Signs: Vital Signs: Last Vital Signs Temp 98.7 F 02/11/22 08:00 Pulse 104 H 02/11/22 08:00 Resp 19 02/11/22 08:00 BP 110/65 02/11/22 08:00 Pulse Ox 93 02/11/22 08:00 O2 Del Method 02/11/22 08:00 O2 Flow Rate 2 02/09/22 15:11 BMI result Body Mass Index 66.9 Const: Other: General: AO X 3, no acute distress Resp: CTA bilateral CVS: S1,S2, iregular, +2 pedal edema GI: +BS, NT, no distention Skin: No rash, mild erythema of lower leg Neuro: motor grossly intact Psych: appropriate affect Objective Data Active Medications Acetaminophen (Acetaminophen 325 Mg Tablet) 650 mg PO Q6H PRN PRN Reason: elizabeth/fever Last Admin: 02/10/22 22:14 Dose: 650 mg Documented By: STEPHEN Digoxin (Digoxin 0.125 Mg Tablet) 0.125 mg PO DAILY [facility] Last Admin: 02/11/22 07:38 Dose: 0.125 mg Documented By: KAM Diltiazem HCl (Diltiazem Hcl 50 Mg/10 Ml Vial) 10 mg IVPUSH Q6H PRN PRN Reason: HR>125 Last Admin: 02/06/22 10:46 Dose: 10 mg Documented By: LORI Empagliflozin (Empagliflozin 10 Mg Tablet) 10 mg PO DAILY [facility] [place] Last Admin: 02/11/22 07:39 Dose: 10 mg Documented By: KAM Fenofibrate (Fenofibrate 160 Mg Tablet) 160 mg PO DAILY [facility] [place] Last Admin: 02/11/22 07:38 Dose: 160 mg Documented By: KAM Hydromorphone HCl (Hydromorphone Hcl 0.5 Mg/0.5 Ml Syringe) 0.5 mg IVPUSH Q4H PRN; Protocol PRN Reason: Pain, Severe (Pain Scale 7-10) Last Admin: 02/11/22 07:40 Dose: 0.5 mg Documented By: KAM Doxycycline Hyclate 100 mg/ (Sodium Chloride) 250 mls @ 166.67 mls/hr IV Q12H [facility] [place] Last Admin: 02/11/22 07:39 Dose: 166.7 mls/hr Documented By: KAM Ceftriaxone Sodium 1 gm/ (Sodium Chloride) 50 mls @ 100 mls/hr IV Q24H [facility] [place] Last Infusion: 02/11/22 02:04 Dose: 0 mls/hr Documented By: STEPHEN Furosemide 200 mg/ Sodium (Chloride) 100 mls @ 5 mls/hr IVCONT .Q20H [facility] [place] Last Admin: 02/11/22 03:28 Dose: 10 mg/hr, 5 mls/hr Documented By: STEPHEN Melatonin (Melatonin 3 Mg Tablet) 6 mg PO BEDTIME PRN PRN Reason: Insomnia Metoprolol Tartrate (Metoprolol Tartrate 50 Mg Tablet) 50 mg PO TID [facility] [place]; Protocol Metoprolol Tartrate (Metoprolol Tartrate 25 Mg Tablet) 25 mg PO ONCE ONE; Protocol Stop: 02/11/22 09:28 Omeprazole (Omeprazole 20 Mg Capsule.Dr) 20 mg PO BID [facility] [place] Last Admin: 02/11/22 07:47 Dose: 20 mg Documented By: KAM Potassium Chloride (Potassium Chloride Packet 20 Meq Packet) 40 meq PO BID [facility] [place] Stop: 02/12/22 09:01 Rivaroxaban (Rivaroxaban 20 Mg Tablet) 20 mg PO BEDTIME [facility] [place] Last Admin: 02/10/22 20:21 Dose: 20 mg Documented By: STEPHEN Senna (Sennosides 8.6 Mg Tablet) 17.2 mg PO BEDTIME PRN PRN Reason: Constipation Sodium Chloride (0.9 % Sodium Chloride Flush 3 Ml Syringe) 3 ml IVFLUSH QSHIFT [facility] [place] Last Admin: 02/11/22 07:42 Dose: 3 ml Documented By: KAM Spironolactone (Spironolactone 25 Mg Tablet) 25 mg PO DAILY [facility] [place]; Protocol Last Admin: 02/11/22 07:39 Dose: 25 mg Documented By: KAM Labs CBC & Chem 7: 02/06/22 06:00 02/11/22 07:33 Labs: Laboratory Results - last 24 hr 02/11/22 07:33 Anion Gap 13 Estim Creat Clear Calc 154.5 Estimated GFR > 60 Random Glucose 124 H Calcium 8.7 Microbiology Microbiology Results: Microbiology 02/06/22 01:11 Blood Culture - Final Blood - Venous No growth after 5 days. 02/06/22 01:11 Blood Culture - Final Blood - Venous No growth after 5 days. 02/05/22 20:01 Blood Culture - Final Blood - Venous No growth after 5 days. 02/05/22 20:01 Blood Culture - Final Blood - Venous No growth after 5 days. Assessment and Plan (1) Atrial fibrillation with rapid ventricular response: Status: Acute (2) Acute congestive heart failure: Status: Acute Plan 76-year-old male with a past medical history of hypertension, hyperlipidemia, CAD status post CABG, CHF, COPD, recent admission to the hospital for anemia secondary to GI bleed; presented to the hospital with bilateral leg swelling/fatigue, elevated BNO and . Noted to have acute CHF/right lower extremity cellulitis and AF with RVR. persistent AFib with RVR: rate is better controlled now controlled. DC IV cardizem,? continue dig, increase metoprolol to 50 tid -cardiology following -Xarelto resumed last night Acute systolic CHF exacerbation, marked leg edema Daily weights and I's and O's ?Lasix drip, proably turn to po today, negative 12 liters thus far cardiology followin, Continue metoprolol, currently 50 tid Aldactone 25 daily RLE cellulitis:? improving, continue Doxy, Xray of ankle shoe soft tissue swelling no joint involvment Hematuria--likely from traumatic narayan, CBI is clear, will likely dc soon, urology advises resuming Xarelto 48 hours when you urine is clear..Clamp and stop CBI History of hypertension:?continue metorpolo, restat lisinpril when BP is better Hypokalemia--oral supplement and check mag History of anemia: Continue home iron supplementation DVT prophylaxis:?xarelto Inaptient for AFIB with need IV med for control, heart failuyre needing IV diur etics, ongoing continuus cardiac monitoring PT --> STR Quality Stroke Does the patient have a stroke diagnosis?: No VTE Prior VTE?: No VTE Risk Level:: Medical - moderate - high VTE Device Contraindication: Treatment Not Indicated VTE Drug Contraindication: N/A - Med Ordered
[2022-02-11] MEDS: Potassium Chloride Packet 20 MEQ PACKET 40 MEQ PO ×2 (09:57→20:36)
--- NOTE | 2022-02-11 11:25 | PM.PNCARD ---
Subjective Subjective Date of Service: 02/11/22 Principal diagnosis: CHF Interval history: No cardiac complaints at this point time. Has diuresed very well. Still on Lasix drip. Heart rate is better controlled. Review of Systems Constitutional: Reports no additional constitutional complaints Eyes: Reports no additional eye complaints Cardiovascular: Reports no additional cardiovascular complaints Respiratory: Reports no additional respiratory complaints Gastrointestinal: Reports no additional gastrointestinal complaints Musculoskeletal: Reports other (Pain on weight-bearing on the right lower extremity) Physical Exam Vital Signs: Last Vital Signs Temp 99.1 F 02/11/22 11:23 Pulse 97 02/11/22 11:23 Resp 18 02/11/22 11:23 BP 111/62 02/11/22 11:23 Pulse Ox 95 02/11/22 11:23 O2 Del Method 02/11/22 11:23 O2 Flow Rate 2 02/09/22 15:11 BMI result Body Mass Index 66.9 Const General: cooperative, comfortable, no acute distress, alert and awake Orientation/consciousness: patient oriented x3 Neck Neck: Yes trachea midline, Yes supple and Yes no JVD (Prominent V-waves) Resp Effort & Inspection: normal respiratory effort Auscultation: no wheezes and diminished lung sounds Cardio Jugular venous distension: no JVD Rhythm: abnormal rhythm irregularly irregular Heart sounds: S1 normal heart sound present and S2 normal heart sound present GI Inspection: Yes obesity Auscultation: normal bowel sounds Skin General skin exam: no rashes or lesions noted Neuro General: patient oriented x3 and no focal motor deficits Extrem General: No clubbing, No cyanosis and Yes edema (Much improved) Objective Labs and Meds Result diagrams: 02/06/22 06:00 02/11/22 07:33 Lab results: Laboratory Results - last 24 hr 02/11/22 07:33 Sodium 137 Potassium 3.0 L Chloride 98 Carbon Dioxide 29 Anion Gap 13 BUN 15 Creatinine 0.76 Estim Creat Clear Calc 154.5 Estimated GFR > 60 Random Glucose 124 H Calcium 8.7 Magnesium 2.0 Imaging Radiologist's impression: Impressions Ankle X-Ray 02/10/22 14:30 IMPRESSION: 1. Nonspecific soft tissue swelling adjacent to the ankle. 2. 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 No acute fracture is seen. If a fracture still suspected then a CT scan to the ankle would be helpful. Progress Note: A&P Assessment and plan (1) Acute congestive heart failure: Status: Acute Assessment and Plan: Acute congestive heart failure. Only right heart failure much improved. Well diuresed. Switch to p.o. Bumex 2 mg b.i.d.. Continue other heart failure management. Heart failure management was discussed with him. 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 Out of bed to chair today. Incentive spirometry. Consider PT consultation. (2) Atrial fibrillation with rapid ventricular response: Status: Acute Assessment and Plan: Atrial fibrillation with better rate control. Continue current rate control strategy with metoprolol and digoxin. Continue full oral anticoagulation with Xarelto. Will sign of the case. Thank you for allowing us to partake in his care Time Spent With Patient Time: Total time spent is greater than 50% in coordination of care (as documented) at patient's floor/unit and/or counseling patient: Progress Note: Quality Stroke Does the patient have a stroke diagnosis?: No Procedures Date of Service Date of Service: 02/11/22
[2022-02-11] MEDS: Acetaminophen 325 MG TABLET 650 MG PO (14:43)
[2022-02-11] MEDS: Metoprolol Tartrate 50 MG TABLET PO ×2 (14:44→20:37)
--- NOTE | 2022-02-11 15:29 | PC.NURSE ---
Per DR. Hagan orders CBI DC'd but narayan kept in. Urine draining dark brittney color. Pt in bed, offers no complaints, call bautista within reach.
[2022-02-11 15:43] LABS: B Type Natriuretic Peptide 559 pg/mL (<100)
[2022-02-11] MEDS: Doxycycline Hyclate 100 MG in 0.9 % Sodium Chloride 250 ML 166.67 MG IV (20:35)
[2022-02-11] MEDS: Rivaroxaban 20 MG TABLET PO (20:37)
[2022-02-12] VITALS (8 sets, daily range): BP systolic 95–120; BP diastolic 54–68; PULSE 59–106; RESP 17–20; TEMP 36.2–37.2; O2SAT 93–98
[2022-02-12] MEDS: Furosemide 200 MG in 0.9 % Sodium Chloride 80 ML IVCONT (01:20)
[2022-02-12] MEDS: cefTRIAXone sodium 1 GM in 0.9 % Sodium Chloride 50 ML IV (01:20)
[2022-02-12] MEDS: HYDROmorphone HCl 0.5 MG/0.5 ML SYRINGE IVPUSH ×3 (04:33→19:53)
[2022-02-12 07:20] LABS: Anion Gap 16 (12-20); Blood Urea Nitrogen 16 mg/dL (9-16); Calcium 8.9 mg/dL (8.4-10.2); Carbon Dioxide 29 mmol/L (22-29); Chloride 100 mmol/L (96-108); Creatinine Clr Calc Pharmacy 156.6; Estimated Glomerular Filt Rate > 60; Glucose Random 114 mg/dL (60-115); Potassium 4.2 mmol/L (3.3-5.1); Sodium 141 mmol/L (135-145)
[2022-02-12] MEDS: Digoxin 0.125 MG TABLET PO (08:45)
[2022-02-12] MEDS: Omeprazole 20 MG CAPSULE.DR PO ×2 (08:46→19:50)
[2022-02-12] MEDS: Metoprolol Tartrate 50 MG TABLET PO (08:46)
[2022-02-12] MEDS: Potassium Chloride Packet 20 MEQ PACKET 40 MEQ PO (08:46)
[2022-02-12] MEDS: Fenofibrate 160 MG TABLET PO (08:46)
[2022-02-12] MEDS: Empagliflozin 10 MG TABLET PO (08:46)
[2022-02-12] MEDS: Spironolactone 25 MG TABLET PO (08:46)
[2022-02-12] MEDS: Doxycycline Hyclate 100 MG in 0.9 % Sodium Chloride 250 ML 166.67 MG IV (08:47)
[2022-02-12] MEDS: 0.9 % Sodium Chloride Flush 3 ML SYRINGE IVFLUSH ×3 (08:51→19:54)
[2022-02-12] MEDS: Bumetanide 1 MG TABLET 2 MG PO ×2 (09:57→16:52)
--- NOTE | 2022-02-12 10:00 | PM.PNCARD ---
Subjective Subjective Date of Service: 02/12/22 Principal diagnosis: CHF Interval history: He states that he is feeling good. Asking about discharge. Currently getting physical therapy in the room. Review of Systems Review of Systems Yes all other systems are reviewed and are negative Constitutional: Reports as per HPI Eyes: Reports as per HPI Reports as per HPI Cardiovascular: Reports as per HPI, Denies acrocyanosis, Denies cool extremities, Denies chest pain, Denies leg edema, Denies lightheadedness, Denies palpitations and Denies dyspnea Respiratory: Reports as per HPI, Reports no additional respiratory complaints and Denies dyspnea Gastrointestinal: Reports as per HPI and Reports no additional gastrointestinal complaints Genitourinary: Reports no additional male genitourinary complaints and Reports as per HPI Musculoskeletal: Reports no additional musculoskeletal complaints and Reports as per HPI Skin/Breast: Reports system reviewed and no additional complaints, except as docu Reports system reviewed and no additional complaints, except as documented and Reports as per HPI Psychiatric: Reports no additional psychiatric complaints and Reports as per HPI Endocrine: Reports no additional endocrine complaints, Reports as per HPI and Denies palpitations Hematologic/Lymphatic: Reports no additional hematologic/lymphatic complaints and Reports as per HPI Allergic/Immunologic: Reports no additional allergic/immunologic complaints and Reports as per HPI Physical Exam Vital Signs: Last Vital Signs Temp 98.9 F 02/12/22 07:07 Pulse 103 H 02/12/22 07:07 Resp 19 02/12/22 07:07 BP 106/60 02/12/22 07:07 Pulse Ox 93 02/12/22 07:07 O2 Del Method 02/12/22 03:58 O2 Flow Rate 2 02/09/22 15:11 BMI result Body Mass Index 66.9 Const General: comfortable and no acute distress Orientation/consciousness: patient oriented x3 HEENT Other: Unremarkable Head: Yes normal to inspection Neck Neck: Yes normal visual inspection Chest Chest palpation & inspection: normal inspection of the chest Resp Auscultation: clear to auscultation bilaterally Cardio Palpation: normal PMI Heart sounds: S1 normal heart sound present, S2 normal heart sound present, no gallops, no murmurs and no rubs GI Palpation (GI): Soft to palpation Back/Spine/Pelvis Other: unremarkable Skin General skin exam: no rashes or lesions noted Neuro General: patient oriented x3 Extrem General: Yes normal to inspection Psych Mental Status: mental status grossly normal Objective Labs and Meds Result diagrams: 02/06/22 06:00 02/12/22 05:54 Lab results: Laboratory Results - last 24 hr 02/11/22 02/11/22 02/12/22 07:33 15:13 05:54 Sodium 141 Potassium 4.2 D Chloride 100 Carbon Dioxide 29 Anion Gap 16 BUN 16 Creatinine 0.75 Estim Creat Clear Calc 156.6 Estimated GFR > 60 Random Glucose 114 Calcium 8.9 Magnesium 2.0 B-Natriuretic Peptide 559 H Progress Note: A&P Assessment and plan (1) Atrial fibrillation with rapid ventricular response: Status: Acute Assessment and Plan: On telemetry, atrial fibrillation slightly fast at 110/Min but he is also getting physical therapy at this time. Rate control meds include metoprolol 75 mg b.i.d., digoxin. We can go up further on the beta-lewis dosing. Home rate control meds-diltiazem 240 mg daily; metoprolol succinate ER 12.5 mg daily. (2) Acute congestive heart failure: Status: Acute Assessment and Plan: Based on input output data, he has -15.4 L. Clinically, no significant volume overload. Currently on oral Bumex, spironolactone, Jardiance. No changes. Plan Discussed with Dr. Hagan. Time Spent With Patient Time: Total time spent is greater than 50% in coordination of care (as documented) at patient's floor/unit and/or counseling patient: 35min. Progress Note: Quality Stroke Does the patient have a stroke diagnosis?: No Procedures Date of Service Date of Service: 02/12/22
--- NOTE | 2022-02-12 11:32 | P.PNIM_ITS ---
Subjective Subjective Date of Service: 02/13/22 Interval History: Seen in f/u for heart failure, afib with RVR, had hematuria overnight and is on CBI Interval history: No sob, heart rate still on the high intermittently Review of Systems no chest pain +leg edema no confusion no fever Physical Exam Vital Signs: Vital Signs: Last Vital Signs Temp 98.9 F 02/12/22 07:07 Pulse 103 H 02/12/22 10:36 Resp 19 02/12/22 07:07 BP 106/60 02/12/22 10:36 Pulse Ox 93 02/12/22 10:36 O2 Del Method 02/12/22 03:58 O2 Flow Rate 2 02/09/22 15:11 BMI result Body Mass Index 66.9 Const: Other: General: AO X 3, no acute distress Resp: CTA bilateral CVS: S1,S2, iregular, +2 pedal edema GI: +BS, NT, no distention Skin: No rash, mild erythema of lower leg Neuro: motor grossly intact Psych: appropriate affect Objective Data Active Medications Acetaminophen (Acetaminophen 325 Mg Tablet) 650 mg PO Q6H PRN PRN Reason: elizabeth/fever Last Admin: 02/11/22 14:43 Dose: 650 mg Documented By: KAM Bumetanide (Bumetanide 1 Mg Tablet) 2 mg PO BID@0800,1700 [facility]; Protocol Last Admin: 02/12/22 09:57 Dose: 2 mg Documented By: KAM Digoxin (Digoxin 0.125 Mg Tablet) 0.125 mg PO DAILY [facility] Last Admin: 02/12/22 08:45 Dose: 0.125 mg Documented By: KAM Empagliflozin (Empagliflozin 10 Mg Tablet) 10 mg PO DAILY [facility] Last Admin: 02/12/22 08:46 Dose: 10 mg Documented By: KAM Fenofibrate (Fenofibrate 160 Mg Tablet) 160 mg PO DAILY [facility] Last Admin: 02/12/22 08:46 Dose: 160 mg Documented By: KAM Hydromorphone HCl (Hydromorphone Hcl 0.5 Mg/0.5 Ml Syringe) 0.5 mg IVPUSH Q4H PRN; Protocol PRN Reason: Pain, Severe (Pain Scale 7-10) Last Admin: 02/12/22 04:33 Dose: 0.5 mg Documented By: MICHELL Melatonin (Melatonin 3 Mg Tablet) 6 mg PO BEDTIME PRN PRN Reason: Insomnia Metoprolol Tartrate (Metoprolol Tartrate 25 Mg Tablet) 75 mg PO BID [facility]; Protocol Omeprazole (Omeprazole 20 Mg Capsule.Dr) 20 mg PO BID [facility] Last Admin: 02/12/22 08:46 Dose: 20 mg Documented By: KAM Rivaroxaban (Rivaroxaban 20 Mg Tablet) 20 mg PO BEDTIME [facility] Last Admin: 02/11/22 20:37 Dose: 20 mg Documented By: MICHELL Senna (Sennosides 8.6 Mg Tablet) 17.2 mg PO BEDTIME PRN PRN Reason: Constipation Sodium Chloride (0.9 % Sodium Chloride Flush 3 Ml Syringe) 3 ml IVFLUSH QSHIFT [facility] Last Admin: 02/12/22 08:51 Dose: 3 ml Documented By: KAM Spironolactone (Spironolactone 25 Mg Tablet) 25 mg PO DAILY [facility]; Protocol Last Admin: 02/12/22 08:46 Dose: 25 mg Documented By: KAM Labs CBC & Chem 7: 02/06/22 06:00 02/12/22 05:54 Labs: Laboratory Results - last 24 hr 02/11/22 02/12/22 15:13 05:54 Anion Gap 16 Estim Creat Clear Calc 156.6 Estimated GFR > 60 Random Glucose 114 Calcium 8.9 B-Natriuretic Peptide 559 H Assessment and Plan (1) Atrial fibrillation with rapid ventricular response: Status: Acute (2) Acute congestive heart failure: Status: Acute Plan 76-year-old male with a past medical history of hypertension, hyperlipidemia, CAD status post CABG, CHF, COPD, recent admission to the hospital for anemia secondary to GI bleed; presented to the hospital with bilateral leg swelling/fatigue, elevated BNO and . Noted to have acute CHF/right lower extremity cellulitis and AF with RVR. persistent AFib with RVR: rate is better controlled now controlled but not optimal off IV cardizem,? continue dig, increase metoprolol to 50 tid -cardiology following -Xarelto resumed last night Acute systolic CHF exacerbation, marked leg edema Daily weights and I's and O's ?Lasix drip, proably turn to po today, negative 12 liters thus far cardiology followin, Continue metoprolol, currently 75 bid Aldactone 25 daily RLE cellulitis: clinically resolved with Doxycyline for 7 days now Hematuria--likely from traumatic narayan, CBI is clear, will likely dc soon, urology advises resuming Xarelto 48 hours when you urine is clear. CBI stopped, remove catheter today History of hypertension:?continue [place]or[place], restat lisinpril when BP is better Hypokalemia--oral supplement and check mag History of anemia: Continue home iron supplementation DVT prophylaxis:?xarelto Inaptient for AFIB with need IV med for control, heart failuyre needing IV diuretics, ongoing continuus cardiac monitoring PT --> STR when medically ready Quality Stroke Does the patient have a stroke diagnosis?: No VTE Prior VTE?: No VTE Risk Level:: Medical - moderate - high VTE Device Contraindication: Treatment Not Indicated VTE Drug Contraindication: N/A - Med Ordered
--- NOTE | 2022-02-12 12:21 | MHC.CM.PN ---
Male 76 DX CHF PT rec STR. Clinical info has been sent to facilities for review. CM will follow for bed offers. BLS transport.
[2022-02-12] MEDS: Rivaroxaban 20 MG TABLET PO (19:50)
[2022-02-12] MEDS: Metoprolol Tartrate 25 MG TABLET 75 MG PO (19:52)
[2022-02-13] VITALS (7 sets, daily range): BP systolic 100–126; BP diastolic 51–69; PULSE 85–99; RESP 18–20; TEMP 36.1–38.1; O2SAT 94–98; BMI 66.4
[2022-02-13] MEDS: HYDROmorphone HCl 0.5 MG/0.5 ML SYRINGE IVPUSH ×3 (04:10→21:58)
[2022-02-13] MEDS: Fenofibrate 160 MG TABLET PO (08:29)
[2022-02-13] MEDS: Bumetanide 1 MG TABLET 2 MG PO ×2 (08:29→17:19)
[2022-02-13] MEDS: Metoprolol Tartrate 100 MG TABLET PO ×2 (08:29→21:58)
[2022-02-13] MEDS: Spironolactone 25 MG TABLET PO (08:29)
[2022-02-13] MEDS: Digoxin 0.125 MG TABLET PO (08:29)
[2022-02-13] MEDS: Omeprazole 20 MG CAPSULE.DR PO ×2 (08:29→21:58)
[2022-02-13] MEDS: Empagliflozin 10 MG TABLET PO (08:29)
[2022-02-13] MEDS: Acetaminophen 325 MG TABLET 650 MG PO ×3 (08:30→23:40)
[2022-02-13] MEDS: 0.9 % Sodium Chloride Flush 3 ML SYRINGE IVFLUSH ×3 (08:35→21:58)
--- NOTE | 2022-02-13 09:38 | P.PNCA_ITS ---
Subjective Subjective Date of Service: 02/13/22 Principal diagnosis: CHF Interval history: He states he feels okay. Denies any anginal symptoms or shortness of breath or anything else of cardiac nature. However not clear if he is actually moving around or not. Seems to be rather resting. Review of Systems Review of Systems Yes all other systems are reviewed and are negative Constitutional: Reports as per HPI Eyes: Reports as per HPI Reports as per HPI Cardiovascular: Reports as per HPI, Denies acrocyanosis, Denies cool ex tremities, Denies chest pain, Denies leg edema, Denies lightheadedness, Denies palpitations and Denies dyspnea Respiratory: Reports as per HPI, Reports no additional respiratory complaints and Denies dyspnea Gastrointestinal: Reports as per HPI and Reports no additional gastrointestinal complaints Genitourinary: Reports no additional male genitourinary complaints and Reports as per HPI Musculoskeletal: Reports no additional musculoskeletal complaints and Reports as per HPI Skin/Breast: Reports system reviewed and no additional complaints, except as docu Reports system reviewed and no additional complaints, except as documented and Reports as per HPI Psychiatric: Reports no additional psychiatric complaints and Reports as per HPI Endocrine: Reports no additional endocrine complaints, Reports as per HPI and Denies palpitations Hematologic/Lymphatic: Reports no additional hematologic/lymphatic complaints and Reports as per HPI Allergic/Immunologic: Reports no additional allergic/immunologic complaints and Reports as per HPI Physical Exam Vital Signs: Last Vital Signs Temp 97.8 F 02/13/22 07:46 Pulse 91 02/13/22 07:46 Resp 20 02/13/22 07:46 BP 106/55 L 02/13/22 07:46 Pulse Ox 94 02/13/22 07:46 O2 Del Method 02/13/22 07:46 O2 Flow Rate 2 02/09/22 15:11 BMI result Body Mass Index 66.4 Const General: comfortable and no acute distress Orientation/consciousness: patient oriented x3 HEENT Other: Unremarkable Head: Yes normal to inspection Neck Neck: Yes normal visual inspection Chest Chest palpation & inspection: normal inspection of the chest Resp Auscultation: clear to auscultation bilaterally Cardio Palpation: normal PMI Heart sounds: S1 normal heart sound present, S2 normal heart sound present, no gallops, no murmurs and no rubs GI Palpation (GI): Soft to palpation Back/Spine/Pelvis Other: unremarkable Skin General skin exam: no rashes or lesions noted Neuro General: patient oriented x3 Extrem Other: slight redness left leg General: Yes normal to inspection Psych Mental Status: mental status grossly normal Objective Labs and Meds Result diagrams: 02/06/22 06:00 02/12/22 05:54 Progress Note: A&P Assessment and plan (1) Atrial fibrillation with rapid ventricular response: Status: Acute Assessment and Plan: He is currently on metoprolol 100 mg twice daily as well as digoxin. Current ventricular rate when he is resting is around 100/Min. Yesterday, there were rapid rates into the 100s and several strips had a bundle-branch pattern. Probably atrial fibrillation with aberrant conduction. Less likely ventricular nature. Overall, rate is suboptimally controlled. Can add amiodarone for rate control purposes as he is already on high dose of beta-blockers and digoxin and still rapid. Of note, he also runs lowish blood pressures. Otherwise, continue anticoagulation. Home rate control meds-diltiazem 240 mg daily; metoprolol succinate ER 12.5 mg daily. (2) Acute congestive heart failure: Status: Acute Assessment and Plan: Based on input output data, he has -16.4 L. Clinically, no significant volume overload. Currently on oral Bumex, spironolactone, Jardiance. No changes. Plan Discussed with Dr. Hagan. Time Spent With Patient Time: Total time spent is greater than 50% in coordination of care (as documented) at patient's floor/unit and/or counseling patient: 35min. Progress Note: Quality Stroke Does the patient have a stroke diagnosis?: No Procedures Date of Service Date of Service: 02/13/22
--- NOTE | 2022-02-13 11:10 | P.PNIM_ITS ---
Subjective Subjective Date of Service: 02/13/22 Interval History: Seen in f/u for heart failure, afib with RVR, had hematuria overnight and is on CBI Interval history: No shortness of breath, went back into atrial tachycardia overnight with HR as high as 180, generalized deconditioning Review of Systems no chest pain +leg edema no confusion no fever Physical Exam Vital Signs: Vital Signs: Last Vital Signs Temp 97.8 F 02/13/22 07:46 Pulse 91 02/13/22 07:46 Resp 20 02/13/22 07:46 BP 106/55 L 02/13/22 07:46 Pulse Ox 94 02/13/22 07:46 O2 Del Method 02/13/22 07:46 O2 Flow Rate 2 02/09/22 15:11 BMI result Body Mass Index 66.4 Const: Other: General: AO X 3, no acute distress Resp: CTA bilateral CVS: S1,S2, iregular, +2 pedal edema GI: +BS, NT, no distention Skin: No rash, mild erythema of lower leg Neuro: motor grossly intact Psych: appropriate affect Objective Data Active Medications Acetaminophen (Acetaminophen 325 Mg Tablet) 650 mg PO Q6H PRN PRN Reason: elizabeth/fever Last Admin: 02/13/22 08:30 Dose: 650 mg Documented By: ORLANDO Bumetanide (Bumetanide 1 Mg Tablet) 2 mg PO BID@0800,1700 [facility]; Protocol Last Admin: 02/13/22 08:29 Dose: 2 mg Documented By: ORLANDO Digoxin (Digoxin 0.125 Mg Tablet) 0.125 mg PO DAILY [facility] Last Admin: 02/13/22 08:29 Dose: 0.125 mg Documented By: ORLANDO Empagliflozin (Empagliflozin 10 Mg Tablet) 10 mg PO DAILY [facility] Last Admin: 02/13/22 08:29 Dose: 10 mg Documented By: ORLANDO Fenofibrate (Fenofibrate 160 Mg Tablet) 160 mg PO DAILY [facility] Last Admin: 02/13/22 08:29 Dose: 160 mg Documented By: ORLANDO Hydromorphone HCl (Hydromorphone Hcl 0.5 Mg/0.5 Ml Syringe) 0.5 mg IVPUSH Q4H PRN; Protocol PRN Reason: Pain, Severe (Pain Scale 7-10) Last Admin: 02/13/22 10:10 Dose: 0.5 mg Documented By: ORLANDO Melatonin (Melatonin 3 Mg Tablet) 6 mg PO BEDTIME PRN PRN Reason: Insomnia Metoprolol Tartrate (Metoprolol Tartrate 100 Mg Tablet) 100 mg PO BID [facility]; Protocol Last Admin: 02/13/22 08:29 Dose: 100 mg Documented By: ORLANDO Omeprazole (Omeprazole 20 Mg Capsule.) 20 mg PO BID [facility] Last Admin: 02/13/22 08:29 Dose: 20 mg Documented By: ORLANDO Rivaroxaban (Rivaroxaban 20 Mg Tablet) 20 mg PO BEDTIME [facility] Last Admin: 02/12/22 19:50 Dose: 20 mg Documented By: MICHELL Senna (Sennosides 8.6 Mg Tablet) 17.2 mg PO BEDTIME PRN PRN Reason: Constipation Sodium Chloride (0.9 % Sodium Chloride Flush 3 Ml Syringe) 3 ml IVFLUSH QSHIFT [facility] Last Admin: 02/13/22 08:35 Dose: 3 ml Documented By: ORLANDO Spironolactone (Spironolactone 25 Mg Tablet) 25 mg PO DAILY [facility]; Protocol Last Admin: 02/13/22 08:29 Dose: 25 mg Documented By: ORLANDO Labs CBC & Chem 7: 02/06/22 06:00 02/12/22 05:54 Assessment and Plan (1) Atrial fibrillation with rapid ventricular response: Status: Acute (2) Acute congestive heart failure: Status: Acute Plan 76-year-old male with a past medical history of hypertension, hyperlipidemia, CAD status post CABG, CHF, COPD, recent admission to the hospital for anemia secondary to GI bleed; presented to the hospital with bilateral leg swelling/fatigue, elevated BNO and . Noted to have acute CHF/right lower extremity cellulitis and AF with RVR. persistent AFib with RVR, HR still no controlled Starting amio today, check TSH Incrase metoprolol to 100 mg bid continue Dig Xarelto for stroke prevention Acute systolic CHF exacerbation, clincally now compensate after IV Lasix and negative 16 L fluid Transitioned to Bumex 2 mg bid on 02/12 Daily weights and I's and O's ?continue Metoprolol, Aldactone, once stable add low dose JESSICA RLE cellulitis: clinically resolved with Doxycyline for 7 days now Hematuria--likely from traumatic narayan, CBI is clear, will likely dc soon, urology advised resuming Xarelto 48 hours when you urine is clear. CBI stopped, will remove cath before discharge History of hypertension:?continue metoprolol, restat lisinpril when BP is better Hypokalemia--oral supplement, mag normal History of anemia: Continue home iron supplementation DVT prophylaxis:?xarelto Inaptient for AFIB not yet controlled and med being adjusted and monitoring for response PT --> STR when medically ready Quality Stroke Does the patient have a stroke diagnosis?: No VTE Prior VTE?: No VTE Risk Level:: Medical - moderate - high VTE Device Contraindication: Treatment Not Indicated VTE Drug Contraindication: N/A - Med Ordered
[2022-02-13 11:24] LABS: Anion Gap 13 (12-20); Blood Urea Nitrogen 21 mg/dL (9-16); Calcium 8.8 mg/dL (8.4-10.2); Carbon Dioxide 28 mmol/L (22-29); Chloride 99 mmol/L (96-108); Creatinine Clr Calc Pharmacy 151.9; Estimated Glomerular Filt Rate > 60; Glucose Random 106 mg/dL (60-115); Potassium 3.7 mmol/L (3.3-5.1); Sodium 136 mmol/L (135-145)
[2022-02-13] MEDS: Amiodarone HCL 200 MG TABLET 400 MG PO (12:30)
[2022-02-13] MEDS: Melatonin 3 MG TABLET 6 MG PO (21:58)
[2022-02-13] MEDS: Rivaroxaban 20 MG TABLET PO (21:58)
[2022-02-14] VITALS (7 sets, daily range): BP systolic 100–121; BP diastolic 54–74; PULSE 80–96; RESP 18–20; TEMP 35.9–37.1; O2SAT 93–98; BMI 56.5
[2022-02-14] MEDS: 0.9 % Sodium Chloride Flush 3 ML SYRINGE IVFLUSH ×3 (08:12→23:40)
[2022-02-14] MEDS: Spironolactone 25 MG TABLET PO (08:12)
[2022-02-14] MEDS: Bumetanide 1 MG TABLET 2 MG PO ×2 (08:12→17:25)
[2022-02-14] MEDS: Digoxin 0.125 MG TABLET PO (08:12)
[2022-02-14] MEDS: HYDROmorphone HCl 0.5 MG/0.5 ML SYRINGE IVPUSH ×3 (08:12→23:40)
[2022-02-14] MEDS: Fenofibrate 160 MG TABLET PO (08:12)
[2022-02-14] MEDS: Metoprolol Tartrate 100 MG TABLET PO ×2 (08:12→23:05)
[2022-02-14] MEDS: Omeprazole 20 MG CAPSULE.DR PO ×2 (08:12→23:05)
[2022-02-14] MEDS: Empagliflozin 10 MG TABLET PO (08:12)
--- NOTE | 2022-02-14 08:32 | ECG_ITS ---
Test Reason : qt check Blood Pressure : / mmHG Vent. Rate : 078 BPM Atrial Rate : 000 BPM P-R Int : 000 ms QRS Dur : 092 ms QT Int : 400 ms P-R-T Axes : 000 -14 207 degrees QTc Int : 456 ms Atrial fibrillation with premature ventricular or aberrantly conducted complexes Nonspecific ST and T wave abnormality Abnormal ECG When compared with ECG of 06-FEB-2022 08:34, ventricular rate decreased Referred By: Zane Ma Electronically Signed By:ZANE MA
--- NOTE | 2022-02-14 09:11 | P.CDIC_ITS ---
CDI Concurrent Query Documentation Clarification: PHYSICIAN'S DOCUMENTATION REQUEST Date of Query: 02/14/22910 Patient Name: Hector Diaz Admit Date: 02/05/22 Dear Doctor, A review of the medical record indicates additional documentation may be needed. Please review below and update the documentation accordingly. Risk Factors/Clinical Indicators/Treatments Nursing notes height and weight 02/13 - Extreme Obesity Class III BMI 66.4 If possible, please provide an associated diagnosis related to the abnormal BMI, such as: For a BMI >= 40: * Overweight * Obesity * Due to excess calories * Drug induced * Due to other cause * Severe or Morbid Obesity * With alveolar hypoventilation * Without alveolar hypoventilation Or: * BMI is not significant * Other (please specify) * Unable to determine Use of terms such as suspected, likely, concern for, or probable (associated with a specific diagnosis that is being evaluated, monitored, or treated as if it exists) are acceptable and can be coded in the inpatient setting, when documented at the time of discharge. Thank you, Alycia Piper [facility], CDIS Extension: [phone] Please use your independent medical judgment in providing your response. THIS QUERY IS PART OF THE PERMANENT MEDICAL RECORD Provider Response: Other Other Diagnosis: weight recording is inacurate.. on Feb 05 weight was 90 killo and after loosing 18 liters of fluid it should be down no uP to 120 killo...erro in recording
--- NOTE | 2022-02-14 09:11 | MHC.CDI.CONC ---
CDI Concurrent Query Documentation Clarification: PHYSICIAN'S DOCUMENTATION REQUEST Date of Query: 02/14/22 0911 Patient Name: Hector Diaz Admit Date: 02/05/22 Dear Doctor, A review of the medical record indicates additional documentation may be needed. Please review below and update the documentation accordingly. Risk Factors/Clinical Indicators/Treatments Nursing notes height and weight 02/13 - Extreme Obesity Class III BMI 66.4 If possible, please provide an associated diagnosis related to the abnormal BMI, such as: For a BMI >= 40: Overweight Obesity Due to excess calories Drug induced Due to other cause Severe or Morbid Obesity With alveolar hypoventilation Without alveolar hypoventilation Or: BMI is not significant Other (please specify) Unable to determine Use of terms such as suspected, likely, concern for, or probable (associated with a specific diagnosis that is being evaluated, monitored, or treated as if it exists) are acceptable and can be coded in the inpatient setting, when documented at the time of discharge. Thank you, Alycia Piper [facility], CDIS Extension: [phone] Please use your independent medical judgment in providing your response. THIS QUERY IS PART OF THE PERMANENT MEDICAL RECORD Provider Response: Other Other Diagnosis: weight recording is inacurate.. on Feb 05 weight was 90 killo and after loosing 18 liters of fluid it should be down no uP to 120 killo...erro in recording
--- NOTE | 2022-02-14 09:34 | P.PNCA_ITS ---
Subjective Subjective Date of Service: 02/14/22 Principal diagnosis: CHF Interval history: He states that he is feeling fine. Denies any cardiac complaints like angina or shortness of breath or in fact anything else at all. Review of Systems Review of Systems Yes all other systems are reviewed and are negative Constitutional: Reports as per HPI Eyes: Reports as per HPI Reports as per HPI Cardiovascular: Reports as per HPI, Denies acrocyanosis, Denies cool extremities, Denies chest pain, Denies leg edema, Denies lightheadedness, Denies palpitations and Denies dyspnea Respiratory: Reports as per HPI, Reports no additional respiratory complaints and Denies dyspnea Gastrointestinal: Reports as per HPI and Reports no additional gastrointestinal complaints Genitourinary: Reports no additional male genitourinary complaints and Reports as per HPI Musculoskeletal: Reports no additional musculoskeletal complaints and Reports as per HPI Skin/Breast: Reports system reviewed and no additional complaints, except as docu Reports system reviewed and no additional complaints, except as documented and Reports as per HPI Psychiatric: Reports no additional psychiatric complaints and Reports as per HPI Endocrine: Reports no additional endocrine complaints, Reports as per HPI and Denies palpitations Hematologic/Lymphatic: Reports no additional hematologic/lymphatic complaints and Reports as per HPI Allergic/Immunologic: Reports no additional allergic/immunologic complaints and Reports as per HPI Physical Exam Vital Signs: Last Vital Signs Temp 97.6 F 02/14/22 07:31 Pulse 85 02/14/22 07:31 Resp 20 02/14/22 07:31 BP 112/55 L 02/14/22 07:31 Pulse Ox 96 02/14/22 07:31 O2 Del Method 02/14/22 07:31 O2 Flow Rate 2 02/09/22 15:11 BMI result Body Mass Index 56.5 Const General: comfortable and no acute distress Orientation/consciousness: patient oriented x3 HEENT Other: Unremarkable Head: Yes normal to inspection Neck Neck: Yes normal visual inspection Chest Chest palpation & inspection: normal inspection of the chest Resp Auscultation: clear to auscultation bilaterally Cardio Palpation: normal PMI Heart sounds: S1 normal heart sound present, S2 normal heart sound present, no gallops, no murmurs and no rubs GI Palpation (GI): Soft to palpation Back/Spine/Pelvis Other: unremarkable Skin General skin exam: no rashes or lesions noted Neuro General: patient oriented x3 Extrem Other: slight redness left leg General: Yes normal to inspection Psych Mental Status: mental status grossly normal Objective Labs and Meds Result diagrams: 02/06/22 06:00 02/13/22 10:46 Lab results: Laboratory Results - last 24 hr 02/13/22 10:46 Sodium 136 Potassium 3.7 Chloride 99 Carbon Dioxide 28 Anion Gap 13 BUN 21 H Creatinine 0.77 Estim Creat Clear Calc 151.9 Estimated GFR > 60 Random Glucose 106 Calcium 8.8 TSH 1.00 Progress Note: A&P Assessment and plan (1) Atrial fibrillation with rapid ventricular response: Status: Acute Assessment and Plan: Yesterday, amiodarone was added. Subsequently, his rates are substantially better. Current rate is around 80/Min. There are some aberrantly conducted beats which are highly doubt an ventricular nature. Most likely or atrial fibrillation. For rate control, we can use beta-blockers as currently on. Amiodarone 400 b.i.d. for a week and then go to 200 daily. Will need follow-up with his own supervisor [employer] from [facility]. Discussed about this with the patient. We can stop the digoxin. Continue anticoagulation. (2) Acute congestive heart failure: Status: Acute Assessment and Plan: Based on input output data, he has -18.2 L. Clinically, no significant volume overload. Currently on oral Bumex, spironolactone, Jardiance. Renal function seems stable. Correct electrolytes. Plan Discussed with Dr. Hagan. Time Spent With Patient Time: Total time spent is greater than 50% in coordination of care (as documented) at patient's floor/unit and/or counseling patient: 35min. Progress Note: Quality Stroke Does the patient have a stroke diagnosis?: No Procedures Date of Service Date of Service: 02/14/22
--- NOTE | 2022-02-14 10:21 | HO.PM.IMPN ---
Subjective Subjective Date of Service: 02/14/22 Interval History: Seen in f/u for heart failure, afib with RVR, had hematuria overnight and is on CBI Interval history: doing well, no sob, no chest pain, HR is much better controlled. Review of Systems no chest pain +leg edema no confusion no fever Physical Exam Vital Signs: Vital Signs: Last Vital Signs Temp 97.6 F 02/14/22 07:31 Pulse 85 02/14/22 07:31 Resp 20 02/14/22 07:31 BP 112/55 L 02/14/22 07:31 Pulse Ox 96 02/14/22 07:31 O2 Del Method 02/14/22 07:31 O2 Flow Rate 2 02/09/22 15:11 BMI result Body Mass Index 56.5 Const: Other: General: AO X 3, no acute distress Resp: CTA bilateral CVS: S1,S2, iregular, +trace pedal edema GI: +BS, NT, no distention Skin: No rash, mild erythema of lower leg Neuro: motor grossly intact Psych: appropriate affect Objective Data Active Medications Acetaminophen (Acetaminophen 325 Mg Tablet) 650 mg PO Q6H PRN PRN Reason: elizabeth/fever Last Admin: 02/13/22 23:40 Dose: 650 mg Documented By: SILKE Amiodarone HCl (Amiodarone Hcl 200 Mg Tablet) 400 mg PO DAILY [facility] Stop: 02/19/22 09:01 Bumetanide (Bumetanide 1 Mg Tablet) 2 mg PO BID@0800,1700 [facility]; Protocol Last Admin: 02/14/22 08:12 Dose: 2 mg Documented By: KETAN Empagliflozin (Empagliflozin 10 Mg Tablet) 10 mg PO DAILY [facility] Last Admin: 02/14/22 08:12 Dose: 10 mg Documented By: KETAN Fenofibrate (Fenofibrate 160 Mg Tablet) 160 mg PO DAILY [facility] Last Admin: 02/14/22 08:12 Dose: 160 mg Documented By: KETAN Hydromorphone HCl (Hydromorphone Hcl 0.5 Mg/0.5 Ml Syringe) 0.5 mg IVPUSH Q4H PRN; Protocol PRN Reason: Pain, Severe (Pain Scale 7-10) Last Admin: 02/14/22 08:12 Dose: 0.5 mg Documented By: KETAN Melatonin (Melatonin 3 Mg Tablet) 6 mg PO BEDTIME PRN PRN Reason: Insomnia Last Admin: 02/13/22 21:58 Dose: 6 mg Documented By: SILKE Metoprolol Tartrate (Metoprolol Tartrate 100 Mg Tablet) 100 mg PO BID [facility]; Protocol Last Admin: 02/14/22 08:12 Dose: 100 mg Documented By: KETAN Omeprazole (Omeprazole 20 Mg Capsule.Dr) 20 mg PO BID [facility] Last Admin: 02/14/22 08:12 Dose: 20 mg Documented By: KETAN Rivaroxaban (Rivaroxaban 20 Mg Tablet) 20 mg PO BEDTIME [facility] Last Admin: 02/13/22 21:58 Dose: 20 mg Documented By: SILKE Senna (Sennosides 8.6 Mg Tablet) 17.2 mg PO BEDTIME PRN PRN Reason: Constipation Sodium Chloride (0.9 % Sodium Chloride Flush 3 Ml Syringe) 3 ml IVFLUSH QSHIFT [facility] Last Admin: 02/14/22 08:12 Dose: 3 ml Documented By: KETAN Spironolactone (Spironolactone 25 Mg Tablet) 25 mg PO DAILY [facility]; Protocol Last Admin: 02/14/22 08:12 Dose: 25 mg Documented By: KETAN Labs CBC & Chem 7: 02/06/22 06:00 02/13/22 10:46 Labs: Laboratory Results - last 24 hr 02/13/22 10:46 Anion Gap 13 Estim Creat Clear Calc 151.9 Estimated GFR > 60 Random Glucose 106 Calcium 8.8 TSH 1.00 Assessment and Plan (1) Atrial fibrillation with rapid ventricular response: Status: Acute (2) Acute congestive heart failure: Status: Acute Plan 76-year-old male with a past medical history of hypertension, hyperlipidemia, CAD status post CABG, CHF, COPD, recent admission to the hospital for anemia secondary to GI bleed; presented to the hospital with bilateral leg swelling/fatigue, elevated BNO and . Noted to have acute CHF/right lower extremity cellulitis and AF with RVR. persistent AFib with RVR, HR is now controlled At begining was on IV cardizem which was eventually weaned off Started on Metoprolol and titrated up to 100 mg twice a day now He was loaded with dig but has been discontinued as of 02/14 due starting amio Amiodarone started on 02/13/22 at 400 x 1 week, followed by 200 daily thereafter To continue Xarelto as there have been no further hematuria Acute systolic CHF exacerbation, clincally now compensate after IV Lasix and negative 18 L fluid He was initially on IV Lasix push, then was transitioned to Lasix drip for several days. all told negative 18 liters Transitioned to Bumex 2 mg bid on 02/12 Daily weights and I's and O's ?continue Metoprolol, Aldactone, jardiance . Hold lisnorpril for low bp RLE cellulitis: clinically resolved with Doxycyline for 7 days now Hematuria--likely from traumatic narayan, was on CBI, Dr. Gordon recommending restarting Xarelto 48 negative hematuria, no further bleeding he's been back on Xarelto. Narayan discontinued History of hypertension:?continue metoprolol, restat lisinpril when BP is better Hypokalemia--oral supplement, mag normal, daily K supplement at 10 meq History of anemia: Continue home iron supplementation DVT prophylaxis:?xarelto Inaptient for need: meds have been adjusted to control AFIB, now waiting for rehab bed PT --> STR when bed available, CM aware Quality Stroke Does the patient have a stroke diagnosis?: No VTE Prior VTE?: No VTE Risk Level:: Medical - moderate - high VTE Device Contraindication: Treatment Not Indicated VTE Drug Contraindication: N/A - Med Ordered
[2022-02-14] MEDS: Amiodarone HCL 200 MG TABLET 400 MG PO (11:01)
--- NOTE | 2022-02-14 15:03 | MHC.CM.PN ---
DP met with Patient and family to discuss discharge plans. STR preferences obtained. Facilities contacted for bed offers. No bed @ [facility] or [facility]. [facility] has not responded to the referral. The building has been called VM left for Admissions, RE [facility] referral.Spoke with Pts dtr. Informed her of bed search status. Also told her that more preferences may need to be obtained for placement.
--- NOTE | 2022-02-14 18:29 | PC.NURSE ---
Patient unable to urinate, C/O pain in mid lower abdomen. Bladder scanned for >999. MD notified. MD order to reinsert narayan catheter. 16F catheter inserted, yellow urine draining.
[2022-02-14] MEDS: Acetaminophen 325 MG TABLET 650 MG PO (18:43)
[2022-02-14] MEDS: Rivaroxaban 20 MG TABLET PO (23:05)
[2022-02-15 03:26] VITALS: BP 128/64; PULSE 72; RESP 20; TEMP 37.1; O2SAT 96
[2022-02-15 05:49] VITALS: BMI 56.4
[2022-02-15] MEDS: HYDROmorphone HCl 0.5 MG/0.5 ML SYRINGE IVPUSH ×2 (06:11→10:23)
[2022-02-15 07:45] LABS: Anion Gap 17 (12-20); Blood Urea Nitrogen 26 mg/dL (9-16); Calcium 8.8 mg/dL (8.4-10.2); Carbon Dioxide 28 mmol/L (22-29); Chloride 95 mmol/L (96-108); Creatinine Clr Calc Pharmacy 121.1; Estimated Glomerular Filt Rate > 60; Glucose Random 106 mg/dL (60-115); Potassium 3.6 mmol/L (3.3-5.1); Sodium 136 mmol/L (135-145)
[2022-02-15 08:00] VITALS: BP 106/58; PULSE 84; RESP 24; TEMP 36.5; O2SAT 91
[2022-02-15 09:33] VITALS: BP 106/58; PULSE 84; O2SAT 91
[2022-02-15] MEDS: Metoprolol Tartrate 100 MG TABLET PO (10:10)
[2022-02-15] MEDS: Bumetanide 1 MG TABLET 2 MG PO (10:10)
[2022-02-15] MEDS: Omeprazole 20 MG CAPSULE.DR PO (10:10)
[2022-02-15] MEDS: Empagliflozin 10 MG TABLET PO (10:10)
[2022-02-15] MEDS: Fenofibrate 160 MG TABLET PO (10:11)
[2022-02-15] MEDS: 0.9 % Sodium Chloride Flush 3 ML SYRINGE IVFLUSH (10:11)
[2022-02-15] MEDS: Spironolactone 25 MG TABLET PO (10:11)
[2022-02-15] MEDS: Amiodarone HCL 200 MG TABLET 400 MG PO (10:11)
[2022-02-15 11:36] VITALS: BP 96/56; PULSE 94; RESP 16; TEMP 36.6; O2SAT 92
--- NOTE | 2022-02-15 12:42 | MHC.CM.PN ---
Addendum entered by Saige Hernandez 02/15/22 16:11: Insurance authorization received. Patient scheduled to transport via BLS with [facility] picking table worker 4pm today. Original Note: IMM 02/15/22 Male 76 DX CHF AFIB RVR. Patient is ready to discharge today. [facility] has offered a bed pending insurance authorization. Patient will transport via BLS.
--- NOTE | 2022-02-15 13:33 | PM.DS ---
DS: Providers Provider Date of Service: 02/15/22 Date of admission: 02/05/22 22:48 Date of discharge: 02/15/22 Primary care physician: Darek Roqnuillo MD Consults: 02/05/22 22:53 Consult to Cardiology Routine Consulting Provider: Rudi Mccoy Reason for consultation: CHF 02/07/22 23:45 Consult to Urology Routine Consulting Provider: Vish Gordon Reason for consultation: hematuria Attending physician on discharge: Vijay Shell Discharging clinician: Rox Howard DS: Diagnosis Discharge Diagnosis (1) Atrial fibrillation with rapid ventricular response: Status: Acute (2) Acute congestive heart failure: Status: Acute DS: Summary Hospital Course Hospital Course: from H&P on day of admission 76-year-old male with a past medical history of hypertension, hyperlipidemia, CAD status post CABG, CHF, gastritis, recent admission to the hospital for anemia presented to the hospital today with a chief complaint of bilateral leg swelling.? Patient reports that over the past 2 weeks has been having bilateral leg swelling; also had fatigue; denies any shortness of breath, dyspnea on exertion, orthopnea.? Mentions that he has been following with PCP and has been on p.o. Lasix with no significant improvement in his bilateral legs.? Also mentioned that his right leg is much more tender and swollen.? Denies any fevers and chills.? Denies any chest pain palpitations lightheadedness or dizziness.? Denies any GI symptoms.? Review of all other systems is negative except mentioned above ER course: Per ER team patient noted to bilateral pitting edema; chest x-ray showed congestion.? Concern for acute CHF/right leg cellulitis.? Patient was given IV Zosyn.? Admitted to the hospital for further management.? Followed by patient also noted to have tachycardia with heart rate in 130s.? AFib with RVR. persistent AFib with RVR, HR is now controlled At begining was on IV cardizem which was eventually weaned off Started on Metoprolol and titrated up to 100 mg twice a day He was loaded with dig but has been discontinued as of 02/14 due starting amio Amiodarone started on 02/13/22 at 400 x 1 week, followed by 200 daily thereafter To continue Xarelto as there have been no further hematuria Acute systolic CHF exacerbation, clinically now compensate after IV Lasix and negative 18 L fluid He was initially on IV Lasix push, then was transitioned to Lasix drip for several days. all told negative 18 liters Transitioned to Bumex 2 mg bid on 02/12 continue Metoprolol Aldactone, jardiance added this admission. Hold lisnorpril for low bp. Can resume as BP allows RLE cellulitis: clinically resolved with Doxycyline for 7 days Hematuria--likely from traumatic narayan, was on CBI, Dr. Gordon recommending restarting Xarelto 48 negative hematuria, no further bleeding he's been back on Xarelto. Failed voiding trial. Will need outpatient follow-up with Urology History of hypertension:?continue metoprolol, restart lisinopril when BP is better Hypokalemia--oral supplement, mag normal, monitor Potassium periodically. History of anemia: Continue home iron supplementation Time Spent with Patient Time attestation: Total time spent providing and/or coordinating discharge services: Discharge coordination time: Greater than 30 minutes Quality: Safe Use of Opioids Does Pt have an Active Cancer Diagnosis on the Problem List?: No Quality: Stroke Does the patient have a stroke diagnosis?: No Physical Exam Vital Signs: Vital Signs: Last Vital Signs Temp 97.8 F 02/15/22 11:36 Pulse 94 02/15/22 11:36 Resp 16 02/15/22 11:36 BP 96/56 L 02/15/22 11:36 Pulse Ox 92 02/15/22 11:36 O2 Del Method 02/15/22 11:36 O2 Flow Rate 2 02/09/22 15:11 BMI result Body Mass Index 56.4 DS: Data Data Completed and Pending Completed studies during hospitalization [Text1]: Procedures Excision of Stomach, Pylorus, Via Natural or Artificial Opening Endoscopic, Diagnostic (01/17/22) Transfusion of Nonautologous Red Blood Cells into Peripheral Vein, Percutaneous Approach (01/17/22) Labs on day of discharge: Laboratory Results - last 24 hr 02/15/22 07:12 Sodium 136 Potassium 3.6 Chloride 95 L Carbon Dioxide 28 Anion Gap 17 BUN 26 H Creatinine 0.87 Estim Creat Clear Calc 121.1 Estimated GFR > 60 Random Glucose 106 Calcium 8.8 Discharge Plan Discharge Patient Disposition: [facility] Discharge Diagnosis: atrial fibrillation with rapid ventricular response Systolic CHF Cellulitis Hematuria Referrals: [facility] [Outside] - 1 Week Vish Gordon MD [Physician] - 1 Week Darek Ronquillo MD [Primary Care Provider] - 02/15/22 2:30 pm (YOU HAVE APPOINTMENT SCHEDULED WITH PCP, CALL IF YOU NEED TO RESCHEDULE ) Rudi Mccoy MD [Physician] - 1 Week Discharge Medications: New metoprolol tartrate 100 mg Tablet 100 mg PO BID 30 Days Qty: 60 0RF Protocol: Hold for SBP/HR < HOLD for SBP < : 90 HOLD for HR < : 60 spironolactone 25 mg Tablet 25 mg PO DAILY 30 Days Qty: 30 0RF Protocol: Hold for SBP< HOLD for SBP < : 90 bumetanide 1 mg Tablet 2 mg PO BID@0800,1700 30 Days Qty: 120 0RF Protocol: Hold for SBP< HOLD for SBP < : 90 Jardiance 10 mg Tablet 10 mg PO DAILY Qty: 1 0RF amiodarone 200 mg tablet 200 mg PO DAILY 30 Days Qty: 30 0RF Continued atorvastatin 40 mg tablet 1 tab PO BEDTIME dutasteride 0.5 mg capsule 1 cap PO BEDTIME fenofibrate nanocrystallized 145 mg tablet 1 tab PO DAILY budesonide-formoterol [Symbicort] 160-4.5 mcg/actuation HFA aerosol inhaler 1 puff PO BID Xarelto 20 mg tablet 1 tab PO BEDTIME omeprazole 20 mg capsule,delayed release(DR/EC) 20 mg PO BID 30 Days Qty: 60 0RF ferrous sulfate 325 mg (65 mg iron) tablet 325 mg PO BID Qty: 60 0RF Discontinued furosemide 40 mg tablet 1 tab PO DAILY Hold Instructions: Resume on 01/25/22. lisinopril 20 mg tablet 1 tab PO DAILY Hold Instructions: Resume on 01/25/22. Follow up with PCP before restarting diltiazem HCl 240 mg capsule,extended release 24 hr 1 cap PO DAILY Hold Instructions: Resume on 01/25/22. hold until seen by pcp metoprolol succinate 25 mg tablet extended release 24 hr 12.5 mg PO DAILY Qty: 30 0RF Discharge Orders: Discharge Order (Routine); Ordered 02/15/22 Ordered By: Rox Howard Activity on Discharge: As tolerated Stand Alone Forms: Patient Portal Discharge page Care Plan Goals: see below Health Concerns: atrial fibrillation with rapid ventricular response. Heart rate now controlled. metoprolol was increased to 100 mg twice daily. and amiodarone was started on February 13 at 400 mg daily until February 19 followed by 200 mg daily thereafter. hematuria-resolved acute systolic CHF. Status post diuresis with IV Lasix. Transitioned to oral Bumex right lower extremity cellulitis. Resolved with doxycycline urinary retention. Failed inpatient voiding trial. Narayan in place hypokalemia. Improved hypertension. Lisinopril placed on hold, can be resumed as blood pressure allows Plan of Treatment: stop taking Lasix, start taking Bumex stop taking Cardizem Dose of metoprolol increased to 100 twice daily start taking amiodarone 400 mg daily until February 19 and then 200 mg daily thereafter Aldactone, Jardiance added lisinopril discontinued call to schedule follow-up appointment with Cardiology Call to schedule follow-up appointment with Urology. failed inpatient voiding trial,narayan was replaced. would repeat BMP early next week and periodically thereafter Assessment: see discharge summary
[2022-02-15 13:39] LABS: IDNOW Serial# 16C4AD1C
[2022-02-15 13:40] LABS: COVID-19 Test Negative (Negative)
[2022-02-15 15:35] VITALS: BP 94/52; PULSE 80; RESP 17; TEMP 36.6; O2SAT 96
--- NOTE | 2022-02-15 19:36 | PC.NURSE ---
Call placed to [facility] to give hand off nursing report, unable to reach a nurse.
[2022-02-15] MEDS: Rivaroxaban 20 MG TABLET PO (19:58)
== END 2022-02-15 20:00 | disposition skilled nursing facility (03) | DRG 602 ==
LOC: HO.ED 23:01 → HO.EDOVER 23:25 → HO.IMC 02-06 17:49
PROVIDERS: Internal Medicine; Admitting Provider Hospitalist; Emergency Provider Emergency Medicine; PCP Internal Medicine; Visit Provider Physician Assistant Medical
DX: L03.115 Cellulitis of right lower limb (principal); I50.21 Acute systolic (congestive) heart failure; I48.19 Other persistent atrial fibrillation; T83.83XA Hemorrhage due to genitourinary prosthetic devices, implants and grafts, initial encounter; R31.0 Gross hematuria; I25.10 Atherosclerotic heart disease of native coronary artery without angina pectoris; I11.0 Hypertensive heart disease with heart failure; D64.9 Anemia, unspecified; E87.6 Hypokalemia; I50.810 Right heart failure, unspecified; E78.5 Hyperlipidemia, unspecified; J44.9 Chronic obstructive pulmonary disease, unspecified; Z20.822 Contact with and (suspected) exposure to COVID-19; Z95.1 Presence of aortocoronary bypass graft; Z79.01 Long term (current) use of anticoagulants; Z79.899 Other long term (current) drug therapy
CPT/HCPCS: 36415; 71046; 73600; 80048; 80053; 81001; 83605; 83735; 83880; 84443; 85025; 87040; 87635; 93005; 93306; 93971; 96374; 96375; 97110; 97116; 97162; 97530; 99285; C1758; J0696; J1160; J1170; J1940; J2270; J2543; J3370; Q9957

== ENCOUNTER 2022-03-19 13:07 | Outpatient (REF) | payer MEDICARE, SELFPAY ==
[2022-03-19 13:45] LABS: Hematocrit 31.7 % (42.0-52.0); Hemoglobin 9.9 g/dl (14.0-18.0); Mean Corpuscular HGB Conc 31.2 g/dl (31.0-36.0); Mean Corpuscular Hemoglobin 28.1 pg (27.0-33.0); Mean Corpuscular Volume 90.1 fL (80.0-98.0); Mean Platelet Volume 9.8 fL (9.4-12.4); Platelet Count 243 X10*3/uL (160-400); Red Blood Count 3.52 X10*6/uL (4.60-5.80); Red Cell Distribution Width 21.4 % (11.0-16.0); White Blood Count 5.5 X10*3/uL (4.8-10.8)
[2022-03-19 14:19] LABS: Anion Gap 11 (12-20); Blood Urea Nitrogen 19 mg/dL (9-16); Calcium 8.7 mg/dL (8.4-10.2); Carbon Dioxide 31 mmol/L (22-29); Chloride 103 mmol/L (96-108); Estimated Glomerular Filt Rate > 60; Glucose Random 95 mg/dL (60-115); Potassium 3.6 mmol/L (3.3-5.1); Sodium 141 mmol/L (135-145)
[2022-03-19 14:24] LABS: B Type Natriuretic Peptide 623 pg/mL (<100)
== END 2022-03-19 13:08 | disposition home or self-care (01) ==
LOC: HO.LAB 13:07
PROVIDERS: PCP Internal Medicine; Visit Provider Internal Medicine Cardiovascular Disease
DX: I50.30 Unspecified diastolic (congestive) heart failure (principal); I48.20 Chronic atrial fibrillation, unspecified; I25.10 Atherosclerotic heart disease of native coronary artery without angina pectoris
CPT/HCPCS: 36415; 80048; 83880; 85027; 93005; 99212

== ENCOUNTER 2022-03-21 11:58 | Outpatient (RCR) | payer MEDICARE, SELFPAY | END 2022-04-30 07:54 | disposition home or self-care (01) | LOC: HO.WCC 11:58 | PROVIDERS: PCP Internal Medicine; Visit Provider Surgery | DX: I70.233 Atherosclerosis of native arteries of right leg with ulceration of ankle (principal); L97.314 Non-pressure chronic ulcer of right ankle with necrosis of bone; I70.212 Atherosclerosis of native arteries of extremities with intermittent claudication, left leg; L03.115 Cellulitis of right lower limb; I48.20 Chronic atrial fibrillation, unspecified; I11.0 Hypertensive heart disease with heart failure; I50.810 Right heart failure, unspecified; I25.10 Atherosclerotic heart disease of native coronary artery without angina pectoris; J44.9 Chronic obstructive pulmonary disease, unspecified; Z87.891 Personal history of nicotine dependence; Z79.899 Other long term (current) drug therapy | CPT/HCPCS: 11042; 11043; 11044; 11046; 11047; 88304; 88311; 97597; 97598 ==

== ENCOUNTER → 2022-04-03 08:49 | Outpatient (REF) | payer MEDICARE, SELFPAY ==
--- NOTE | ~2022-04-03 | NM_ITS ---
Lexiscan Myocardial perfusion study Indication: Congestive heart failure, assess for coronary disease and ischemia Technique: The patient was brought in for a Lexiscan perfusion study on 04/03/2022 and was injected 0.4 mg of Lexiscan intravenously. Within a minute of this injection 30 mCi of sestamibi was given intravenously. Images were obtained using the SPECT gamma camera interlaced with the gating device. Images were obtained in supine position. Resting acquisition was not completed as the patient was hospitalized in other hospital. Images were processed with the software and compared side to side in short axis, horizontal long axis and vertical long axis views. Findings: Raw acquisition reviewed. The stress perfusion study showed absent tracer uptake in the distal part of anterior wall, distal inferior wall, apex and immediate adjacent areas. No significant change with CT attenuation correction. The gated study shows normal LV systolic function with calculated LVEF of 64%. LV cavity is normal in size. The gated study shows apical akinesis. Resting acquisition not completed, as patient could not return. The findings are consistent with absent tracer uptake in the apical anterior wall, apical inferior wall, apex. NM/NM aakash perf SPECT rest or str Impression: 1. Myocardial perfusion imaging study shows absent uptake in the apex and immediate adjacent areas. Cannot differentiate if ischemia or infarction as there are no resting images. 2. Gated LVEF is 68% during stress. EKG component of the test reported separately.
--- NOTE | 2022-04-03 08:55 | CA_ITS ---
Acquisition Time: 2022-04-03 09:10:40 Total Exercise Time: 00:02:00 Test Indications: AFIB Medications: Protocol: LEXISCAN Max HR: 122 BPM 85% of Pred: 143 BPM Max BP: 098/062 mmHG Max Work Load: 1.0 METS Pharmacological stress test with Lexiscan injection, while sitting and kicking his left leg and moving left arm, without anginal symptoms, with isolated PVC and underlying afib, RBBB, with asymptomatic low BP at baseline which remained stable during testing, with nondiagnostic EKG for ischemia. In recovery he was treated with Aminophyllne 75mg IVP to reverse Lexiscan. Nuclear images pending. Test reviewed with Dr Medina Referred By: Rudi Mccoy Overread By: YEVGENIY SPENCER
== END ==
LOC: HO.CARD 08:49
PROVIDERS: PCP Internal Medicine; Visit Provider Internal Medicine Cardiovascular Disease
DX: I50.30 Unspecified diastolic (congestive) heart failure (principal)
CPT/HCPCS: 78451; 93017; A9500; J0280; J2785

== ENCOUNTER 2022-06-18 13:29 | Outpatient (REF) | payer MEDICARE, SELFPAY ==
[2022-06-18 14:02] LABS: Ammonia 33 umol/L (13-55)
[2022-06-18 14:15] LABS: Anion Gap 12 (12-20); B Type Natriuretic Peptide 573 pg/mL (<100); Blood Urea Nitrogen 21 mg/dL (9-16); Calcium 8.8 mg/dL (8.4-10.2); Carbon Dioxide 27 mmol/L (22-29); Chloride 102 mmol/L (96-108); Estimated Glomerular Filt Rate 59; Glucose Random 102 mg/dL (60-115); Magnesium 2.1 mg/dL (1.6-2.6); Potassium 3.5 mmol/L (3.3-5.1); Sodium 137 mmol/L (135-145)
== END 2022-06-18 13:30 | disposition home or self-care (01) ==
LOC: HO.LAB 13:29
PROVIDERS: PCP Internal Medicine; Visit Provider Internal Medicine Cardiovascular Disease
DX: I50.30 Unspecified diastolic (congestive) heart failure (principal); I95.9 Hypotension, unspecified; I48.20 Chronic atrial fibrillation, unspecified; I25.10 Atherosclerotic heart disease of native coronary artery without angina pectoris
CPT/HCPCS: 36415; 80048; 82140; 83735; 83880; 93005; 99212

== ENCOUNTER → 2022-08-06 13:11 | Outpatient (BNVA) | payer MEDICARE, SELFPAY | PROVIDERS: PCP Internal Medicine; Referring Provider Internal Medicine; Visit Provider Internal Medicine Cardiovascular Disease | DX: I95.9 Hypotension, unspecified (principal); I50.30 Unspecified diastolic (congestive) heart failure; I48.20 Chronic atrial fibrillation, unspecified; I25.10 Atherosclerotic heart disease of native coronary artery without angina pectoris | CPT/HCPCS: 93005; 99212 ==

== ENCOUNTER 2022-10-09 16:28 | Emergency (ER) | payer MEDICARE, SELFPAY ==
[2022-10-09] VITALS (8 sets, daily range): BP systolic 108–122; BP diastolic 45–61; PULSE 69–83; RESP 12–18; TEMP 36.4–36.8; O2SAT 97–98; BMI 25.1
--- NOTE | 2022-10-09 16:33 | ED_ITS ---
HPI - General Adult General Chief complaint: Epistaxis Stated complaint: Nose bleed on thinners Time Seen by Provider: 10/09/22 16:49 Related Data Home Medications Medication Instructions Recorded Confirmed atorvastatin 40 mg tablet 40 mg PO BEDTIME 03/19/22 08/06/22 dutasteride 0.5 mg capsule 0.5 mg PO BEDTIME 03/19/22 06/18/22 fenofibrate nanocrystallized 145 145 mg PO DAILY 03/19/22 08/06/22 mg tablet rivaroxaban 20 mg tablet (Xarelto) 20 mg PO BEDTIME 03/19/22 08/06/22 cholecalciferol (vitamin D3) 25 25 mcg PO DAILY 08/06/22 08/06/22 mcg (1,000 unit) capsule dutasteride 0.5 mg capsule 0.5 mg PO DAILY 08/06/22 08/06/22 (Avodart) Previous Rx's Medication Instructions Recorded ferrous sulfate 325 mg (65 mg 325 mg PO BID #60 tabs 01/18/22 iron) tablet omeprazole 20 mg capsule,delayed 20 mg PO BID 30 days #60 caps 01/18/22 release digoxin 125 mcg (0.125 mg) tablet 125 mcg PO DAILY 90 days #90 tabs 08/31/22 (Digox) potassium chloride 20 mEq 20 meq PO DAILY 90 days #90 tabs 08/31/22 tablet,extended release bumetanide 2 mg tablet 2 mg PO BID #200 tabs 09/12/22 metoprolol succinate 25 mg 25 mg PO QPM 90 days #90 tabs 09/13/22 tablet,extended release 24 hr (Toprol XL) midodrine 2.5 mg tablet 2.5 mg PO TID 90 days #270 tabs 09/13/22 amoxicillin 500 mg capsule 500 mg PO TID #20 caps 10/09/22 Allergies Allergy/AdvReac Type Severity Reaction Status Date / Time No Known Allergies Allergy Verified 02/05/22 19:33 FOR[facility]LY [facility], [facility] Past Medical History Medical History Acute blood loss anemia Acute congestive heart failure Acute upper gastrointestinal bleeding Afib CAD (coronary artery disease) COPD (chronic obstructive pulmonary disease) Hyperlipidemia Nasal sinus tumor Surgical History Hx of CABG Social History Social History Household Members: Spouse Housing: House Do you presently have visiting nurse or other home services: No Alcohol intake: current Alcohol intake frequency: does not drink Alcohol type: beer Patient Tobacco Use Status: Former Tobacco user Smoked in Last 30 Days: No Use of substances other than those prescribed or required for medical reasons: No Advance Directives: No Advance Directives Information Provided: No service: Yes Current occupational status: retired Physical Exam ED Vital Signs: Vital Signs - 24 hr 10/09/22 16:33 10/09/22 16:51 10/09/22 18:24 Temperature 97.6 F 97.8 F Pulse Rate 83 77 69 Respiratory Rate 18 18 16 Blood Pressure 118/55 L 108/55 L 111/46 L Pulse Oximetry 98 97 98 Oxygen Delivery Method Room Air Room Air 10/09/22 20:34 10/09/22 20:36 10/09/22 20:48 Temperature 98.0 F 98.0 F 97.9 F Pulse Rate 76 76 73 Respiratory Rate 16 16 18 Blood Pressure 114/47 L 114/47 L 112/45 L Pulse Oximetry 98 Oxygen Delivery Method Room Air 10/09/22 22:47 10/09/22 20:53 Temperature 98.3 F Pulse Rate 81 75 Respiratory Rate 12 16 Blood Pressure 114/54 L 122/61 Pulse Oximetry 97 Oxygen Delivery Method Room Air BMI result Body Mass Index 25.1 Course Course Course Narrative: This is an RME: Additional HPI, ROS, PE not included below will be deferred to primary provider. 77-year-old male history of AFib on Xarelto, heart failure, CAD presenting with nosebleed from right nares times an hour. Patient arrives to the emergency department with a tampon in his right nose and is bleeding right through the tampon. This has been happening frequently, patient usually gets them to stop at home however not the swelling active bleeding from right nares Medications Administered Discontinued Medications Generic Name Dose Route Start Last Admin Trade Name Freq PRN Reason Stop Dose Admin Amoxicillin 500 mg 10/09/22 17:51 10/09/22 18:32 Amoxicillin 500 Mg Capsule PO 10/09/22 17:52 500 mg ONCE ONE Administration Oxymetazoline HCl 2 spray 10/09/22 16:33 04/04/23 17:46 Oxymetazoline Hcl 0.05 % Nasal 15 Ml [place] NOSTRIL-B 10/09/22 16:34 2 spray ONCE ONE Administration Medical Decision Making Lab Data 10/09/22 17:06 10/09/22 17:06 Labs: Lab Results 10/09/22 10/09/22 10/09/22 Range/Units 17:06 17:06 17:06 WBC 5.3 (4.8-10.8) X10*3/uL RBC 2.16 L D (4.60-5.80) X10*6/uL Hgb 6.5 L* D (14.0-18.0) g/dl Hct 21.5 L D (42.0-52.0) % MCV 99.5 H (80.0-98.0) fL MCH 30.1 (27.0-33.0) pg MCHC 30.2 L (31.0-36.0) g/dl RDW 18.3 H (11.0-16.0) % Plt Count 175 D (160-400) X10*3/uL MPV 10.7 (9.4-12.4) fL Immature Gran % (Auto) 0.8 H (0.0-0.4) % Neut % (Auto) 54.6 (45-73) % Lymph % (Auto) 26.3 (20-40) % [place] % (Auto) 16.4 H (2-11) % Eos % (Auto) 1.3 (0-4) % Baso % (Auto) 0.6 (0-2) % Lymph # (Auto) 1.4 (1.2-4.9) X10*3/uL [place] # (Auto) 0.9 (0.1-1.2) X10*3/uL Eos # (Auto) 0.1 (0.0-0.4) X10*3/uL Baso # (Auto) 0.0 (0.0-0.2) X10*3/uL Abs Immat Gran (auto) 0.04 H (0.00-0.03) X10*3/uL Absolute Neuts (auto) 2.9 (2.0-8.3) x10*3/uL Absolute Nucleated RBC 0.000 (0.0-0.012) X10*3/uL Nucleated RBC % (auto) 0.0 (0.0-0.2) /100WBC PT 24.7 H (10.0-13.1) SEC INR 2.1 H (0.9-1.1) Sodium 140 (135-145) mmol/L Potassium 3.9 (3.3-5.1) mmol/L Chloride 105 (96-108) mmol/L Carbon Dioxide 27 (22-29) mmol/L Anion Gap 12 (12-20) BUN 25 H (9-16) mg/dL Creatinine 1.01 (0.5-1.4) mg/dL Estim Creat Clear Calc 65.2 Estimated GFR > 60 Random Glucose 108 (60-115) mg/dL Calcium 8.9 (8.4-10.2) mg/dL Magnesium 2.0 (1.6-2.6) mg/dL Total Bilirubin 0.8 (0.0-1.0) mg/dL AST 25 (5-37) U/L ALT < 6 (0-40) U/L Alkaline Phosphatase 43 (39-117) U/L Total Protein 6.3 L (6.5-8.0) g/dL Albumin 3.3 L (3.5-5.0) g/dL COVID-19 (OLI) (Negative) COVID-19 Clin Com Blood Type Antibody Screen Crossmatch 10/09/22 10/09/22 Range/Units 18:20 18:30 WBC (4.8-10.8) X10*3/uL RBC (4.60-5.80) X10*6/uL Hgb (14.0-18.0) g/dl Hct (42.0-52.0) % MCV (80.0-98.0) fL MCH (27.0-33.0) pg MCHC (31.0-36.0) g/dl RDW (11.0-16.0) % Plt Count (160-400) X10*3/uL MPV (9.4-12.4) fL Immature Gran % (Auto) (0.0-0.4) % Neut % (Auto) (45-73) % Lymph % (Auto) (20-40) % [place] % (Auto) (2-11) % Eos % (Auto) (0-4) % Baso % (Auto) (0-2) % Lymph # (Auto) (1.2-4.9) X10*3/uL [place] # (Auto) (0.1-1.2) X10*3/uL Eos # (Auto) (0.0-0.4) X10*3/uL Baso # (Auto) (0.0-0.2) X10*3/uL Abs Immat Gran (auto) (0.00-0.03) X10*3/uL Absolute Neuts (auto) (2.0-8.3) x10*3/uL Absolute Nucleated RBC (0.0-0.012) X10*3/uL Nucleated RBC % (auto) (0.0-0.2) /100WBC PT (10.0-13.1) SEC INR (0.9-1.1) Sodium (135-145) mmol/L Potassium (3.3-5.1) mmol/L Chloride (96-108) mmol/L Carbon Dioxide (22-29) mmol/L Anion Gap (12-20) BUN (9-16) mg/dL Creatinine (0.5-1.4) mg/dL Estim Creat Clear Calc Estimated GFR Random Glucose (60-115) mg/dL Calcium (8.4-10.2) mg/dL Magnesium (1.6-2.6) mg/dL Total Bilirubin (0.0-1.0) mg/dL AST (5-37) U/L ALT (0-40) U/L Alkaline Phosphatase (39-117) U/L Total Protein (6.5-8.0) g/dL Albumin (3.5-5.0) g/dL COVID-19 (OLI) Negative (Negative) COVID-19 Clin Com See Note Blood Type O Positive Antibody Screen NEGATIVE Crossmatch See Detail Discharge Plan Discharge Clinical Impression: Epistaxis, Anemia Patient Disposition: Home, Self-Care Instructions: Nosebleed (ED) Additional Instructions: Follow-up with your ear nose and throat surgeon Do not restart is a toe until cleared by your your nose and throat surgeon Prescriptions: New amoxicillin 500 mg capsule 500 mg PO TID Qty: 20 0RF No Action digoxin [Digox] 125 mcg (0.125 mg) tablet 125 mcg PO DAILY 90 Days Qty: 90 3RF potassium chloride 20 mEq tablet extended release 20 meq PO DAILY 90 Days Qty: 90 3RF bumetanide 2 mg tablet 2 mg PO BID Qty: 200 1RF metoprolol succinate [Toprol XL] 25 mg tablet extended release 24 hr 25 mg PO QPM 90 Days Qty: 90 3RF midodrine 2.5 mg tablet 2.5 mg PO TID 90 Days Qty: 270 3RF Rx Instructions: do not give last dose of day after 6PM or within 4 hrs of bedtime omeprazole 20 mg capsule,delayed release(DR/EC) 20 mg PO BID 30 Days Qty: 60 0RF ferrous sulfate 325 mg (65 mg iron) tablet 325 mg PO BID Qty: 60 0RF fenofibrate nanocrystallized 145 mg tablet 145 mg PO DAILY dutasteride 0.5 mg capsule 0.5 mg PO BEDTIME Xarelto 20 mg tablet 20 mg PO BEDTIME atorvastatin 40 mg tablet 40 mg PO BEDTIME dutasteride [Avodart] 0.5 mg capsule 0.5 mg PO DAILY cholecalciferol (vitamin D3) 25 mcg (1,000 unit) capsule 25 mcg PO DAILY
--- NOTE | 2022-10-09 16:55 | PC.NURSE ---
pt coming in with a bloody nose x-couple of hours, left near bleeding ad nd pt inserted his 's tampon to stop the bleeding but still bleeding around it, pt is on xeralto, pt denies pain at this time, ns on the monitor.
--- NOTE | 2022-10-09 17:04 | ED.EPISTAXIS ---
History of Present Illness General Chief Complaint: Epistaxis Stated Complaint: Nose bleed on thinners Time Seen by Provider: 10/09/22 16:49 Source: patient, family and old records reviewed History of Present Illness HPI Narrative: Patient on Xarelto for atrial fibrillation presenting with epistaxis. Epistaxis started prior to arrival. An his is a nurse who packed his nose with a tampon. She has done this before as he has had several episodes of more limited epistaxis over the past month or so. This time, however, he bladder around it. He has never seen a physician for epistaxis before. No recent changes to medication. Xarelto since last summer. No dyspnea. No lightheadedness. No chest pain. Related Data Home Medications Medication Instructions Recorded Confirmed atorvastatin 40 mg tablet 40 mg PO BEDTIME 03/19/22 08/06/22 dutasteride 0.5 mg capsule 0.5 mg PO BEDTIME 03/19/22 06/18/22 fenofibrate nanocrystallized 145 145 mg PO DAILY 03/19/22 08/06/22 mg tablet rivaroxaban 20 mg tablet (Xarelto) 20 mg PO BEDTIME 03/19/22 08/06/22 cholecalciferol (vitamin D3) 25 25 mcg PO DAILY 08/06/22 08/06/22 mcg (1,000 unit) capsule dutasteride 0.5 mg capsule 0.5 mg PO DAILY 08/06/22 08/06/22 (Avodart) Previous Rx's Medication Instructions Recorded ferrous sulfate 325 mg (65 mg 325 mg PO BID #60 tabs 01/18/22 iron) tablet omeprazole 20 mg capsule,delayed 20 mg PO BID 30 days #60 caps 01/18/22 release digoxin 125 mcg (0.125 mg) tablet 125 mcg PO DAILY 90 days #90 tabs 08/31/22 (Digox) potassium chloride 20 mEq 20 meq PO DAILY 90 days #90 tabs 08/31/22 tablet,extended release bumetanide 2 mg tablet 2 mg PO BID #200 tabs 09/12/22 metoprolol succinate 25 mg 25 mg PO QPM 90 days #90 tabs 09/13/22 tablet,extended release 24 hr (Toprol XL) midodrine 2.5 mg tablet 2.5 mg PO TID 90 days #270 tabs 09/13/22 amoxicillin 500 mg capsule 500 mg PO TID #20 caps 10/09/22 Allergies Allergy/AdvReac Type Severity Reaction Status Date / Time No Known Allergies Allergy Verified 02/05/22 19:33 Review of Systems Constitutional: Comments: No recent illness Cardiovascular: Comments: No chest pain Respiratory: Comments: No dyspnea or cough Gastrointestinal: Comments: No nausea vomiting diarrhea PMFSH Past Medical History Medical History Acute blood loss anemia Acute congestive heart failure Acute upper gastrointestinal bleeding Afib CAD (coronary artery disease) COPD (chronic obstructive pulmonary disease) Hyperlipidemia Nasal sinus tumor Surgical History Hx of CABG Social History Social History Household Members: Spouse Housing: House Do you presently have visiting nurse or other home services: No Alcohol intake: current Alcohol intake frequency: does not drink Alcohol type: beer Patient Tobacco Use Status: Former Tobacco user Smoked in Last 30 Days: No Use of substances other than those prescribed or required for medical reasons: No Advance Directives: No Advance Directives Information Provided: No service: Yes Current occupational status: retired Physical Exam Vital Signs: Vital Signs: Last Vital Signs Temp 97.9 F 10/09/22 20:48 Pulse 73 10/09/22 20:48 Resp 18 10/09/22 20:48 BP 112/45 L 10/09/22 20:48 Pulse Ox 98 10/09/22 20:34 O2 Del Method Room Air 10/09/22 20:34 BMI result Body Mass Index 25.1 Const: Other: Awake alert no acute distress HEENT: Other: Patient initially with tampon and right Schmidt. Minimal bleeding around it. Resp: Other: Clear and equal bilaterally Cardio: Other: Regular rate and rhythm without murmurs rubs or gallops GI: Other: Soft nontender nondistended Skin: Other: Warm pink and dry without rash Neuro: Other: No focal weakness Medications Administered Discontinued Medications Generic Name Dose Route Start Last Admin Trade Name Freq PRN Reason Stop Dose Admin Amoxicillin 500 mg 10/09/22 17:51 10/09/22 18:32 Amoxicillin 500 Mg Capsule PO 10/09/22 17:52 500 mg ONCE ONE Administration Oxymetazoline HCl 2 spray 10/09/22 16:33 10/09/22 17:46 Oxymetazoline Hcl 0.05 % Nasal 15 Ml [place] NOSTRIL-B 10/09/22 16:34 2 spray ONCE ONE Administration Medical Decision Making Medical Decision Making MDM Narrative: Epistaxis on Xarelto. Patient with diffuse anterior excoriation. Discussed options with patient and his . I opted for packing with rhino rocket. Rhino rocket soaked in oxymetazoline. Patient tolerated procedure well. Will observe for further bleeding Hemoglobin is 6.5. Given risk factors of peripheral vascular disease, will order transfusion. 22:17. Patient receiving blood now. He feels stable. I discussed the possibility of needing more than 1 unit but patient prefers to go home and follow-up as an outpatient. Given stable vital signs and no symptoms of significant anemia despite his low hemoglobin, I think this is a reasonable plan. Lab Data 10/09/22 17:06 10/09/22 17:06 Labs: Lab Results 10/09/22 10/09/22 10/09/22 Range/Units 17:06 17:06 17:06 WBC 5.3 (4.8-10.8) X10*3/uL RBC 2.16 L D (4.60-5.80) X10*6/uL Hgb 6.5 L* D (14.0-18.0) g/dl Hct 21.5 L D (42.0-52.0) % MCV 99.5 H (80.0-98.0) fL MCH 30.1 (27.0-33.0) pg MCHC 30.2 L (31.0-36.0) g/dl RDW 18.3 H (11.0-16.0) % Plt Count 175 D (160-400) X10*3/uL MPV 10.7 (9.4-12.4) fL Immature Gran % (Auto) 0.8 H (0.0-0.4) % Neut % (Auto) 54.6 (45-73) % Lymph % (Auto) 26.3 (20-40) % [place] % (Auto) 16.4 H (2-11) % Eos % (Auto) 1.3 (0-4) % Baso % (Auto) 0.6 (0-2) % Lymph # (Auto) 1.4 (1.2-4.9) X10*3/uL [place] # (Auto) 0.9 (0.1-1.2) X10*3/uL Eos # (Auto) 0.1 (0.0-0.4) X10*3/uL Baso # (Auto) 0.0 (0.0-0.2) X10*3/uL Abs Immat Gran (auto) 0.04 H (0.00-0.03) X10*3/uL Absolute Neuts (auto) 2.9 (2.0-8.3) x10*3/uL Absolute Nucleated RBC 0.000 (0.0-0.012) X10*3/uL Nucleated RBC % (auto) 0.0 (0.0-0.2) /100WBC PT 24.7 H (10.0-13.1) SEC INR 2.1 H (0.9-1.1) Sodium 140 (135-145) mmol/L Potassium 3.9 (3.3-5.1) mmol/L Chloride 105 (96-108) mmol/L Carbon Dioxide 27 (22-29) mmol/L Anion Gap 12 (12-20) BUN 25 H (9-16) mg/dL Creatinine 1.01 (0.5-1.4) mg/dL Estim Creat Clear Calc 65.2 Estimated GFR > 60 Random Glucose 108 (60-115) mg/dL Calcium 8.9 (8.4-10.2) mg/dL Magnesium 2.0 (1.6-2.6) mg/dL Total Bilirubin 0.8 (0.0-1.0) mg/dL AST 25 (5-37) U/L ALT < 6 (0-40) U/L Alkaline Phosphatase 43 (39-117) U/L Total Protein 6.3 L (6.5-8.0) g/dL Albumin 3.3 L (3.5-5.0) g/dL COVID-19 (OLI) (Negative) COVID-19 Clin Com Blood Type Antibody Screen Crossmatch 10/09/22 10/09/22 Range/Units 18:20 18:30 WBC (4.8-10.8) X10*3/uL RBC (4.60-5.80) X10*6/uL Hgb (14.0-18.0) g/dl Hct (42.0-52.0) % MCV (80.0-98.0) fL MCH (27.0-33.0) pg MCHC (31.0-36.0) g/dl RDW (11.0-16.0) % Plt Count (160-400) X10*3/uL MPV (9.4-12.4) fL Immature Gran % (Auto) (0.0-0.4) % Neut % (Auto) (45-73) % Lymph % (Auto) (20-40) % [place] % (Auto) (2-11) % Eos % (Auto) (0-4) % Baso % (Auto) (0-2) % Lymph # (Auto) (1.2-4.9) X10*3/uL [place] # (Auto) (0.1-1.2) X10*3/uL Eos # (Auto) (0.0-0.4) X10*3/uL Baso # (Auto) (0.0-0.2) X10*3/uL Abs Immat Gran (auto) (0.00-0.03) X10*3/uL Absolute Neuts (auto) (2.0-8.3) x10*3/uL Absolute Nucleated RBC (0.0-0.012) X10*3/uL Nucleated RBC % (auto) (0.0-0.2) /100WBC PT (10.0-13.1) SEC INR (0.9-1.1) Sodium (135-145) mmol/L Potassium (3.3-5.1) mmol/L Chloride (96-108) mmol/L Carbon Dioxide (22-29) mmol/L Anion Gap (12-20) BUN (9-16) mg/dL Creatinine (0.5-1.4) mg/dL Estim Creat Clear Calc Estimated GFR Random Glucose (60-115) mg/dL Calcium (8.4-10.2) mg/dL Magnesium (1.6-2.6) mg/dL Total Bilirubin (0.0-1.0) mg/dL AST (5-37) U/L ALT (0-40) U/L Alkaline Phosphatase (39-117) U/L Total Protein (6.5-8.0) g/dL Albumin (3.5-5.0) g/dL COVID-19 (OLI) Negative (Negative) COVID-19 Clin Com See Note Blood Type O Positive Antibody Screen NEGATIVE Crossmatch See Detail Procedures Epistaxis Control Time Out Performed: Yes Nostril: Yes right Nose prepped with: Yes oxymetazoline Direct inspection: Yes anterior source identified Direct inspection method: Yes otoscope Clots removed by: Yes blowing nose Epistaxis treatment: Yes inflatable pack (Rhino rocket) Results of treatment: Yes bleeding controlled and Yes treatment well tolerated Complications: Yes none Discharge Plan Discharge Clinical Impression: Epistaxis, Anemia Patient Disposition: Home, Self-Care Instructions: Nosebleed (ED) Additional Instructions: Follow-up with your ear nose and throat surgeon Do not restart is a toe until cleared by your your nose and throat surgeon Prescriptions: New amoxicillin 500 mg capsule 500 mg PO TID Qty: 20 0RF No Action digoxin [Digox] 125 mcg (0.125 mg) tablet 125 mcg PO DAILY 90 Days Qty: 90 3RF potassium chloride 20 mEq tablet extended release 20 meq PO DAILY 90 Days Qty: 90 3RF bumetanide 2 mg tablet 2 mg PO BID Qty: 200 1RF metoprolol succinate [Toprol XL] 25 mg tablet extended release 24 hr 25 mg PO QPM 90 Days Qty: 90 3RF midodrine 2.5 mg tablet 2.5 mg PO TID 90 Days Qty: 270 3RF Rx Instructions: do not give last dose of day after 6PM or within 4 hrs of bedtime omeprazole 20 mg capsule,delayed release(DR/EC) 20 mg PO BID 30 Days Qty: 60 0RF ferrous sulfate 325 mg (65 mg iron) tablet 325 mg PO BID Qty: 60 0RF fenofibrate nanocrystallized 145 mg tablet 145 mg PO DAILY dutasteride 0.5 mg capsule 0.5 mg PO BEDTIME Xarelto 20 mg tablet 20 mg PO BEDTIME atorvastatin 40 mg tablet 40 mg PO BEDTIME dutasteride [Avodart] 0.5 mg capsule 0.5 mg PO DAILY cholecalciferol (vitamin D3) 25 mcg (1,000 unit) capsule 25 mcg PO DAILY
[2022-10-09 17:10] LABS: MANUAL DIFF FLAG NO
[2022-10-09 17:18] LABS: Basophils Percent Auto 0.6 % (0-2); Eosinophils Absolute Auto 0.1 X10*3/uL (0.0-0.4); Eosinophils Percent Auto 1.3 % (0-4); Hematocrit 21.5 % (42.0-52.0); Imm Gran Abs Auto 0.04 X10*3/uL (0.00-0.03); Imm Gran Pct Auto 0.8 % (0.0-0.4); Lymphocytes Absolute Auto 1.4 X10*3/uL (1.2-4.9); Lymphocytes Percent Auto 26.3 % (20-40); Mean Corpuscular HGB Conc 30.2 g/dl (31.0-36.0); Mean Corpuscular Hemoglobin 30.1 pg (27.0-33.0); Mean Corpuscular Volume 99.5 fL (80.0-98.0); Mean Platelet Volume 10.7 fL (9.4-12.4); Monocytes Absolute Auto 0.9 X10*3/uL (0.1-1.2); Monocytes Percent Auto 16.4 % (2-11); Neutrophils Absolute Auto 2.9 x10*3/uL (2.0-8.3); Neutrophils Percent Auto 54.6 % (45-73); Platelet Count 175 X10*3/uL (160-400); Red Blood Count 2.16 X10*6/uL (4.60-5.80); Red Cell Distribution Width 18.3 % (11.0-16.0); White Blood Count 5.3 X10*3/uL (4.8-10.8)
[2022-10-09 17:19] LABS: INTERNATIONAL NORM RATIO 2.1 (0.9-1.1); Prothrombin Time 24.7 SEC (10.0-13.1)
[2022-10-09 17:26] LABS: Hemoglobin 6.5 g/dl (14.0-18.0)
[2022-10-09 17:30] LABS: Alanine Aminotransferase < 6 U/L (0-40); Albumin Level 3.3 g/dL (3.5-5.0); Alkaline Phosphatase 43 U/L (39-117); Anion Gap 12 (12-20); Aspartate Amino Transferase 25 U/L (5-37); Bilirubin Total 0.8 mg/dL (0.0-1.0); Blood Urea Nitrogen 25 mg/dL (9-16); Calcium 8.9 mg/dL (8.4-10.2); Carbon Dioxide 27 mmol/L (22-29); Chloride 105 mmol/L (96-108); Creatinine Clr Calc Pharmacy 65.2; Estimated Glomerular Filt Rate > 60; Glucose Random 108 mg/dL (60-115); Potassium 3.9 mmol/L (3.3-5.1); Sodium 140 mmol/L (135-145); Total Protein 6.3 g/dL (6.5-8.0)
[2022-10-09] MEDS: Oxymetazoline HCl 0.05 % Nasal 15 ML SPRAY 2 SPRAY NOSTRIL-B (17:46)
--- NOTE | 2022-10-09 18:28 | MHC.EDTECH ---
pt type and screen drawn ,covid swab collected and sent to lab ,vitals sign taken .
[2022-10-09] MEDS: Amoxicillin 500 MG CAPSULE PO (18:32)
[2022-10-09 19:20] LABS: COVID-19 Test Negative (Negative); IDNOW Serial# 08D9AD1C
--- NOTE | 2022-10-09 20:42 | PC.NURSE ---
no right nare bleeding noted, nasal tampon in place. pt talking in full sentences no s/s of distress . blood unit infusig sat 99% on room air. hr 73, rr even and regular. bp 114/47
--- NOTE | 2022-10-09 23:16 | PC.NURSE ---
blood completed, no reaction noted. vitals stable.
== END 2022-10-10 00:58 | disposition home or self-care (01) ==
PROVIDERS: Physician Assistant; Emergency Provider Student in an Organized Health Care Education/Training Program; PCP Internal Medicine
DX: R04.0 Epistaxis (principal); D64.9 Anemia, unspecified; I48.20 Chronic atrial fibrillation, unspecified; E78.5 Hyperlipidemia, unspecified; Z79.02 Long term (current) use of antithrombotics/antiplatelets; Z79.01 Long term (current) use of anticoagulants; Z79.899 Other long term (current) drug therapy
CPT/HCPCS: 30901; 36415; 36430; 80053; 83735; 85025; 85610; 86850; 86900; 86901; 86923; 87635; 99284; 99285; P9016

== ENCOUNTER 2022-10-15 11:34 | Outpatient (REF) | payer MEDICARE, SELFPAY ==
[2022-10-15 11:43] LABS: MANUAL DIFF FLAG NO
[2022-10-15 13:09] LABS: Basophils Percent Auto 0.7 % (0-2); Eosinophils Absolute Auto 0.1 X10*3/uL (0.0-0.4); Eosinophils Percent Auto 2.1 % (0-4); Hemoglobin 8.3 g/dl (14.0-18.0); Imm Gran Abs Auto 0.05 X10*3/uL (0.00-0.03); Imm Gran Pct Auto 0.9 % (0.0-0.4); Lymphocytes Absolute Auto 1.8 X10*3/uL (1.2-4.9); Lymphocytes Percent Auto 30.7 % (20-40); Mean Corpuscular HGB Conc 29.6 g/dl (31.0-36.0); Mean Corpuscular Hemoglobin 29.7 pg (27.0-33.0); Mean Corpuscular Volume 100.4 fL (80.0-98.0); Mean Platelet Volume 10.4 fL (9.4-12.4); Monocytes Absolute Auto 0.9 X10*3/uL (0.1-1.2); Monocytes Percent Auto 14.9 % (2-11); Neutrophils Percent Auto 50.7 % (45-73); Platelet Count 205 X10*3/uL (160-400); Red Blood Count 2.79 X10*6/uL (4.60-5.80); Red Cell Distribution Width 19.8 % (11.0-16.0); White Blood Count 5.8 X10*3/uL (4.8-10.8)
[2022-10-15 13:36] LABS: Anion Gap 13 (12-20); Blood Urea Nitrogen 20 mg/dL (9-16); Carbon Dioxide 27 mmol/L (22-29); Chloride 106 mmol/L (96-108); Estimated Glomerular Filt Rate > 60; Glucose Random 106 mg/dL (60-115); Sodium 142 mmol/L (135-145)
[2022-10-15 13:47] LABS: Digoxin 0.7 ng/mL (0.8-2.0)
== END 2022-10-15 11:35 | disposition home or self-care (01) ==
LOC: HO.LAB 11:34
PROVIDERS: PCP Internal Medicine; Visit Provider Internal Medicine Cardiovascular Disease
DX: I48.20 Chronic atrial fibrillation, unspecified (principal); R04.0 Epistaxis; D64.9 Anemia, unspecified; Z79.899 Other long term (current) drug therapy
CPT/HCPCS: 36415; 80048; 80162; 85025

== ENCOUNTER 2022-10-22 10:17 | Outpatient (REF) | payer MEDICARE, SELFPAY ==
[2022-10-22 10:32] LABS: MANUAL DIFF FLAG NO
[2022-10-22 11:47] LABS: Basophils Absolute Auto 0.1 X10*3/uL (0.0-0.2); Basophils Percent Auto 0.9 % (0-2); Eosinophils Absolute Auto 0.1 X10*3/uL (0.0-0.4); Eosinophils Percent Auto 1.8 % (0-4); Hematocrit 29.4 % (42.0-52.0); Hemoglobin 8.8 g/dl (14.0-18.0); Imm Gran Abs Auto 0.03 X10*3/uL (0.00-0.03); Imm Gran Pct Auto 0.5 % (0.0-0.4); Lymphocytes Absolute Auto 1.5 X10*3/uL (1.2-4.9); Mean Corpuscular HGB Conc 29.9 g/dl (31.0-36.0); Mean Corpuscular Hemoglobin 30.3 pg (27.0-33.0); Mean Corpuscular Volume 101.4 fL (80.0-98.0); Mean Platelet Volume 10.7 fL (9.4-12.4); Monocytes Absolute Auto 0.9 X10*3/uL (0.1-1.2); Monocytes Percent Auto 15.4 % (2-11); Neutrophils Percent Auto 54.4 % (45-73); Platelet Count 221 X10*3/uL (160-400); Red Cell Distribution Width 18.8 % (11.0-16.0); White Blood Count 5.5 X10*3/uL (4.8-10.8)
== END 2022-10-22 10:18 | disposition home or self-care (01) ==
LOC: HO.LAB 10:17
PROVIDERS: PCP Internal Medicine; Visit Provider Internal Medicine Cardiovascular Disease
DX: D64.9 Anemia, unspecified (principal)
CPT/HCPCS: 36415; 85025

== ENCOUNTER 2022-11-05 13:15 | Outpatient (REF) | payer MEDICARE, SELFPAY ==
[2022-11-05 14:40] LABS: Hematocrit 27.7 % (42.0-52.0); Hemoglobin 8.7 g/dl (14.0-18.0); Mean Corpuscular HGB Conc 31.4 g/dl (31.0-36.0); Mean Corpuscular Hemoglobin 31.6 pg (27.0-33.0); Mean Corpuscular Volume 100.7 fL (80.0-98.0); Mean Platelet Volume 11.1 fL (9.4-12.4); Platelet Count 177 X10*3/uL (160-400); Red Blood Count 2.75 X10*6/uL (4.60-5.80); Red Cell Distribution Width 18.1 % (11.0-16.0); White Blood Count 6.8 X10*3/uL (4.8-10.8)
[2022-11-05 15:20] LABS: Ferritin 47 ng/mL (20-250)
[2022-11-07 14:58] LABS: Prot Elec - Albumin 3.5 g/dL (3.8-4.8); Prot Elec - Alpha1 0.3 g/dL (0.2-0.3); Prot Elec - Alpha2 0.7 g/dL (0.5-0.9); Prot Elec - Beta 1 0.5 g/dL (0.4-0.6); Prot Elec - Beta 2 0.3 g/dL (0.2-0.5); Prot Elec - Gamma 1.3 g/dL (0.8-1.7); Prot Elec - Total Protein 6.6 g/dL (6.1-8.1)
[2022-11-12 15:09] LABS: Kappa, Serum 369 mg/dL (176-443); Kappa/Lambda Ratio, Serum 2.49 (1.29-2.55); Lambda, Serum 148 mg/dL (91-240)
== END 2022-11-05 13:16 | disposition home or self-care (01) ==
LOC: HO.LAB 13:15
PROVIDERS: PCP Internal Medicine; Referring Provider Internal Medicine; Visit Provider Internal Medicine Cardiovascular Disease
DX: I50.30 Unspecified diastolic (congestive) heart failure (principal); I48.20 Chronic atrial fibrillation, unspecified; I25.10 Atherosclerotic heart disease of native coronary artery without angina pectoris; I95.9 Hypotension, unspecified
CPT/HCPCS: 82728; 83883; 84165; 85027; 99212

== ENCOUNTER 2022-11-06 10:27 | Outpatient (REF) | payer MEDICARE, SELFPAY ==
[2022-11-09 16:19] LABS: PEU-Protein Creat Ratio Rand 0.167 (0.025-0.148); PEU-Rand. Prot/Creat Ratio 167 mg/g creat (25-148); PEU-Random Ur. Gamma Globulin 0 %; PEU-Random Urine A1 Globulin 0 %; PEU-Random Urine A2 Globulin 0 %; PEU-Random Urine Albumin 100 %; PEU-Random Urine Beta Globulin 0 %; PEU-Random Urine Creatinine 24 mg/dL (20-320); PEU-Random Urine Protein 4 mg/dL (5-25)
== END 2022-11-06 10:28 | disposition home or self-care (01) ==
LOC: HO.LNP 10:27
PROVIDERS: Visit Provider Internal Medicine Cardiovascular Disease
DX: I50.30 Unspecified diastolic (congestive) heart failure (principal)
CPT/HCPCS: 82570; 84156; 84166

== ENCOUNTER → 2022-11-19 09:50 | Outpatient (REF) | payer MEDICARE, SELFPAY ==
--- NOTE | ~2022-11-19 | NM_ITS ---
TC-PYP Cardiac Study INDICATION: Evaluation for Cardiac Amyloidosis CLINICAL HISTORY: 77 years old Male with diastolic congestive heart failure TECHNIQUE: 25 mCi of Tc-99m pyrophosphate was injected intravenously. Planar images of the chest were obtained in the anterior and left lateral views at 3 hours.. SPECT-CT images of the chest were also obtained. Total DLP 96 mgy-cm. COMPARISON: None FINDINGS: 1. Image Quality: Adequate 2. Semi-quantitative visual scoring of the cardiac uptake is performed as follows: 0 = absent cardiac uptake and adequate bone uptake 3. H-CL Ratio if Applicable: Not applicable 4. Ancillary Finds: Heavy coronary calcification with scattered aortic calcification NM/NM TC PYP cardiac amyloidosis IMPRESSION: 1. No evidence of ATTR type cardiac amyloidosis 2. Please note that the Tc 99m PYP is more sensitive in detecting transthyretin-related cardiac amyloidosis than that of light-chain cardiac amyloidosis.
== END ==
LOC: HO.NUCMED 09:50
PROVIDERS: PCP Internal Medicine; Visit Provider Internal Medicine Cardiovascular Disease
DX: I50.30 Unspecified diastolic (congestive) heart failure (principal)
CPT/HCPCS: 78803; A9538

== ENCOUNTER → 2022-11-27 11:09 | Outpatient (BNV) | payer MEDICARE, SELFPAY | PROVIDERS: PCP Internal Medicine; Visit Provider Internal Medicine Medical Oncology | DX: D64.9 Anemia, unspecified (principal) | CPT/HCPCS: 99204; 99213; 99214 ==

== ENCOUNTER 2023-03-19 09:56 | Outpatient (AMB) | payer MEDICARE, SELFPAY ==
--- NOTE | 2023-03-19 10:06 | MHC.OFFVIS ---
Intake Vital Signs 03/19/23 10:07 Height 5 ft 11 in Weight 185 lb 3.013 oz BMI 25.8 BP 116/72 Blood Pressure Location Lt brachial Position Sitting Pulse 72 Intake Visit Reasons: 4 month follow up Intake Note: 4 month follow-up feeling good Bankruptcy Assistant Required: No Cloud Automation Tester: Cloud Automation Tester Present Accompanied by: Spouse Allergies hydromorphone [From Dilaudid] Adverse Reaction (Verified 12/25/22 10:47) Confusion Medication List - Last Reconciled 03/19/23 by Rudi Mccoy MD atorvastatin 40 mg PO BEDTIME bumetanide 2 mg PO BID cholecalciferol (vitamin D3) 25 mcg PO DAILY digoxin (Digox) 125 mcg PO DAILY 90 days dutasteride (Avodart) 0.5 mg PO DAILY fenofibrate nanocrystallized 145 mg PO DAILY ferrous sulfate 325 mg PO BID metoprolol succinate ER (Toprol XL) 25 mg PO QPM 90 days midodrine 2.5 mg PO TID 90 days omeprazole 20 mg PO BID 30 days potassium chloride ER 20 mEq PO DAILY 90 days rivaroxaban (Xarelto) 20 mg PO BEDTIME HPI HPI Comments History of Present Illness Details Hector comes for follow-up. He has been doing very well from cardiac perspective. No recent hospitalizations. His heart failure syndrome has remained controlled. His weight is stable with no worsening leg edema. No orthopnea, PND. No bleeding issues or neurologic event and his epistaxis has resolved. He denies any anginal symptoms. No lightheadedness, syncope and tolerating midodrine therapy well. [facility] Medical History Acute congestive heart failure Acute upper gastrointestinal bleeding Acute blood loss anemia COPD (chronic obstructive pulmonary disease) Hyperlipidemia Afib Nasal sinus tumor CAD (coronary artery disease) Surgical History Hx of CABG Social History Household Members: Spouse Housing: House Do you presently have visiting nurse or other home services: No Alcohol intake: current Alcohol intake frequency: does not drink Alcohol type: beer Patient Tobacco Use Status: Former Tobacco user Tobacco use type: Cigar service: Yes Current occupational status: retired Review of Systems Const Denies chills, Denies fatigue, Denies fever(s), Denies frequent falls, Denies weakness, Denies weight gain and Denies weight loss ENT Denies dizziness Card Denies chest pain, Denies leg edema, Denies lightheadedness, Denies palpitations, Denies dyspnea, Denies dyspnea on exertion, Denies orthopnea and Denies other (loss of consciousness) Resp Denies cough, Denies dyspnea and Denies dyspnea on exertion GI Denies hematochezia and Denies change in stool character Musc Denies abnormal gait, Denies muscle weakness, Denies numbness, Denies radiating pain into limb and Denies tingling Neuro Denies abnormal gait, Denies dizziness, Denies frequent falls, Denies numbness, Denies tingling and Denies weakness Endo Denies fatigue and Denies palpitations Physical Exam Vital Signs: Last Vital Signs Pulse 72 03/19/23 10:07 BP 116/72 03/19/23 10:07 BMI result Body Mass Index 25.8 Const General: cooperative, comfortable, no acute distress, alert, awake and tired appearing Nutritional Appearance: well nourished and other (Frail) Orientation/consciousness: patient oriented x3 Limitations: no limitations Neck Neck: Yes trachea midline, Yes supple and Yes no JVD Chest Chest palpation & inspection: normal inspection of the chest Resp Effort & Inspection: normal respiratory effort Auscultation: wheezes expiratory wheezes and lower bilaterally Cardio Jugular venous distension: no JVD Rate: regular rate Rhythm: abnormal rhythm irregularly irregular Heart sounds: S1 normal heart sound present, S2 normal heart sound present, no click, no gallops and no murmurs GI Auscultation: normal bowel sounds Skin General skin exam: no rashes or lesions noted and ecchymosis Neuro General: patient oriented x3 and no focal motor deficits Extrem General: No clubbing, No cyanosis and Yes edema (Right 2 to 3+, greater than left 1+) Assessment & Plan Assessment & Plan (1) (HFpEF) heart failure with preserved ejection fraction: Code(s): I50.30 - Unspecified diastolic (congestive) heart failure Plan: Heart failure preserved ejection fraction doing extremely well with current regimen. Has had no hospitalizations. Much improved functionality. Advised him to take his Bumex at 12 noon the 2nd dose rather than in the evening time to avoid nocturnal diuresis. Daily weight monitoring avoidance of salt loading was discussed. Continue current rate control with metoprolol. Continue midodrine for blood pressure control as this has helped him keep upright and become more functional. Follow-up lab work today. There is no evidence of cardiac amyloidosis by imaging in November. Will follow-up echocardiogram in 6 months time. (2) Chronic atrial fibrillation: Code(s): I48.20 - Chronic atrial fibrillation, unspecified Plan: Chronic rate control atrial fibrillation, currently doing well with low-dose metoprolol therapy and digoxin therapy. Semi annual digoxin assay should be performed. Continue current rate control and midodrine therapy which will help views of metoprolol therapy. Continue full oral anticoagulation, currently on Xarelto. Will check CBC. If he has recurrent bleeding complications may consider Watchman device. (3) CAD (coronary artery disease): Code(s): I25.10 - Atherosclerotic heart disease of [place] coronary artery without angina pectoris Plan: CAD status post coronary artery bypass grafting remotely without any symptoms of angina. Continue current full oral anticoagulation with Xarelto and avoid aspirin therapy to reduce bleeding risk. Continue high-intensity statin therapy with Lipitor 40 mg daily with target goal LDL closer to 60 mg/dL. Advise regular physical activity which she is now participating more. (4) Low blood pressure: Code(s): I95.9 - Hypotension, unspecified Plan: Low blood pressure which is currently well optimized. Continue midodrine therapy to avoid orthostatic symptoms and syncope. Continue adequate oral hydration. Orthostatic precautions were discussed. Follow up in the clinic in 6 months time, sooner p.r.n.. Thank you for allowing me to partake in his care Orders: Orders Complete Blood Count no Diff Today I50.30 - Unspecified diastolic (congestive) heart failure B Type Natriuretic Peptide Today I50.30 - Unspecified diastolic (congestive) heart failure Magnesium Today I50.30 - Unspecified diastolic (congestive) heart failure Digoxin Today I48.20 - Chronic atrial fibrillation, unspecified Basic Metabolic Panel Today I50.30 - Unspecified diastolic (congestive) heart failure Coding Level of Care Code Est Pt Level 4 (94345) Diagnoses (HFpEF) heart failure with preserved ejection fraction I50.30 Chronic atrial fibrillation I48.20 CAD (coronary artery disease) I25.10 Low blood pressure I95.9
[2023-03-19 10:07] VITALS: BP 116/72; PULSE 72; BMI 25.8
== END 2023-03-19 10:24 | disposition home or self-care (01) ==
PROVIDERS: PCP Internal Medicine; Referring Provider Internal Medicine; Visit Provider Internal Medicine Cardiovascular Disease
DX: I50.30 Unspecified diastolic (congestive) heart failure (principal); I48.20 Chronic atrial fibrillation, unspecified; I25.10 Atherosclerotic heart disease of native coronary artery without angina pectoris; I95.9 Hypotension, unspecified
CPT/HCPCS: 99214

== ENCOUNTER 2023-03-19 09:56 | Outpatient (REF) | payer MEDICARE, SELFPAY ==
[2023-03-19 11:00] LABS: Hematocrit 28.9 % (42.0-52.0); Hemoglobin 9.1 g/dl (14.0-18.0); Mean Corpuscular HGB Conc 31.5 g/dl (31.0-36.0); Mean Corpuscular Hemoglobin 34.3 pg (27.0-33.0); Mean Corpuscular Volume 109.1 fL (80.0-98.0); Mean Platelet Volume 10.3 fL (9.4-12.4); Platelet Count 177 X10*3/uL (160-400); Red Blood Count 2.65 X10*6/uL (4.60-5.80); Red Cell Distribution Width 15.3 % (11.0-16.0); White Blood Count 6.5 X10*3/uL (4.8-10.8)
[2023-03-19 12:03] LABS: B Type Natriuretic Peptide 274 pg/mL (<100)
[2023-03-19 12:20] LABS: Anion Gap 9 (12-20); Blood Urea Nitrogen 19 mg/dL (9-16); Calcium 9.6 mg/dL (8.4-10.2); Carbon Dioxide 29 mmol/L (22-29); Chloride 107 mmol/L (96-108); Estimated Glomerular Filt Rate > 60; Glucose Random 103 mg/dL (60-115); Magnesium 2.2 mg/dL (1.6-2.6); Potassium 3.9 mmol/L (3.3-5.1); Sodium 141 mmol/L (135-145)
== END 2023-03-19 09:57 | disposition home or self-care (01) ==
LOC: HO.LAB 09:56
PROVIDERS: PCP Internal Medicine; Referring Provider Internal Medicine; Visit Provider Internal Medicine Cardiovascular Disease
DX: I50.30 Unspecified diastolic (congestive) heart failure (principal); I48.20 Chronic atrial fibrillation, unspecified; I25.10 Atherosclerotic heart disease of native coronary artery without angina pectoris; I95.9 Hypotension, unspecified; Z79.899 Other long term (current) drug therapy
CPT/HCPCS: 36415; 80048; 80162; 83735; 83880; 85027; 99212

== ENCOUNTER 2023-07-15 12:04 | Day surgery (SDC) | payer MEDICARE, SELFPAY ==
--- NOTE | ~2023-07-15 | CT_ITS ---
Anemia PROCEDURES: 1. Limited preprocedure CT of the pelvis. Permanent images saved in PACS. 2. 11 g bone marrow core biopsy of the left posterior iliac spine 3. 11 g bone marrow aspirate of the left posterior iliac spine CLINICIANS: Sergio Fallon PA-C MEDICATIONS: -Versed 1 mg, Fentanyl 50 mcg, and lidocaine 1% 10 mL SQ -Antibiotics: None -For additional details, please see nursing flowsheet. COMPLICATIONS: None ESTIMATED BLOOD LOSS: < 5 ml CONTRAST: None SPECIMENS: 11 g core placed in formalin. Bone marrow aspirate placed in EDTA and sodium heparin tubes MODERATE SEDATION TIME: 25 min PROCEDURE NOTE: The procedure, risks, benefits, and alternatives were carefully explained to the patient and written informed consent was obtained. The patient was placed prone on the CT table. A timeout was performed. A limited CT of the pelvis was performed to localize posterior iliac spine and choose appropriate needle entry and trajectory. The patient was prepped and draped in usual sterile fashion. The skin, subcutaneous tissues, and periosteum were anesthetized with lidocaine. Under CT guidance, an 11-gauge bone marrow biopsy needle was advanced into the left posterior iliac spine, with the tip positioned slightly cephalad. An 11-gauge core biopsy of the bone marrow was performed and was placed in formalin. Next, the 11-gauge bone marrow biopsy needle was then advanced into the posterior iliac spine, under CT guidance, with the tip positioned slightly caudal. A bone marrow aspirate was performed. The specimen was placed in the provided EDTA and sodium heparin tubes. The needle was removed. A dry dressing was applied and secured with Tegaderm. There were no immediate complications. The patient was stable after the procedure and was transferred to the post anesthesia care unit. The procedure was done under moderate sedation with a dedicated nurse for monitoring of vital signs. CT/CT biopsy bone marrow Impression: CT-guided bone marrow biopsy and aspirate This procedure was performed by Sergio Fallon PA-C and supervised by Dr. Lombardi.
[2023-07-15 12:39] VITALS: BP 129/64; PULSE 69; RESP 20; TEMP 36.4; O2SAT 94; BMI 26.5
[2023-07-15 13:10] LABS: MANUAL DIFF FLAG NO
[2023-07-15 13:12] LABS: Basophils Absolute Auto 0.1 X10*3/uL (0.0-0.2); Basophils Percent Auto 0.9 % (0-2); Eosinophils Absolute Auto 0.1 X10*3/uL (0.0-0.4); Eosinophils Percent Auto 1.1 % (0-4); Hematocrit 28.8 % (42.0-52.0); Hemoglobin 8.9 g/dl (14.0-18.0); Imm Gran Abs Auto 0.03 X10*3/uL (0.00-0.03); Imm Gran Pct Auto 0.5 % (0.0-0.4); Lymphocytes Absolute Auto 1.2 X10*3/uL (1.2-4.9); Lymphocytes Percent Auto 21.2 % (20-40); Mean Corpuscular HGB Conc 30.9 g/dl (31.0-36.0); Mean Corpuscular Hemoglobin 34.1 pg (27.0-33.0); Mean Corpuscular Volume 110.3 fL (80.0-98.0); Mean Platelet Volume 10.4 fL (9.4-12.4); Monocytes Absolute Auto 0.8 X10*3/uL (0.1-1.2); Neutrophils Absolute Auto 3.6 x10*3/uL (2.0-8.3); Neutrophils Percent Auto 62.3 % (45-73); Platelet Count 174 X10*3/uL (160-400); Red Blood Count 2.61 X10*6/uL (4.60-5.80); White Blood Count 5.7 X10*3/uL (4.8-10.8)
[2023-07-15 14:25] VITALS: BP 118/59; PULSE 80; RESP 16; TEMP 36.2; O2SAT 98
[2023-07-15 14:40] VITALS: BP 127/62; PULSE 68; RESP 16; TEMP 36.7; O2SAT 98
== END 2023-07-15 15:01 | disposition home or self-care (01) ==
PROVIDERS: Internal Medicine Medical Oncology; Pathology Anatomic Pathology & Clinical Pathology; PCP Internal Medicine; Visit Provider Student in an Organized Health Care Education/Training Program
PROC: (CPT 38221; principal; 2023-07-15 13:30)
DX: D64.9 Anemia, unspecified (principal); R04.0 Epistaxis; I50.21 Acute systolic (congestive) heart failure; I48.19 Other persistent atrial fibrillation; I25.10 Atherosclerotic heart disease of native coronary artery without angina pectoris; Z95.1 Presence of aortocoronary bypass graft; E78.5 Hyperlipidemia, unspecified; J44.9 Chronic obstructive pulmonary disease, unspecified; Z79.01 Long term (current) use of anticoagulants; Z79.899 Other long term (current) drug therapy; Z88.8 Allergy status to other drugs, medicaments and biological substances; Z87.891 Personal history of nicotine dependence
CPT/HCPCS: 36415; 38221; 85025; 85610; 88184; 88185; 88237; 88264; 88280; 88305; 88311; 88313; 88374; 99152; J2250; J2310; J3010

== ENCOUNTER → 2023-07-15 13:29 | Outpatient (BNV) | payer MEDICARE, SELFPAY | PROVIDERS: PCP Internal Medicine; Visit Provider Student in an Organized Health Care Education/Training Program | DX: D64.9 Anemia, unspecified (principal) | CPT/HCPCS: 38222; 77012 ==

== ENCOUNTER 2023-09-05 16:18 | Inpatient (IN) | payer MEDICARE, SELFPAY ==
--- NOTE | ~2023-09-05 | XR_ITS ---
EXAMINATION: XR CHEST CLINICAL INFORMATION: Shortness of breath COMPARISON: 02/05/22 TECHNIQUE: 2 views of the chest were obtained. FINDINGS: Devices overlie the patient. Evidence of sternotomy. There is tortuosity of the aorta. The cardiac silhouette is mildly prominent. The central vessels are prominent. There is flattening of the diaphragm. There is a widely detail of the chest. There is an irregular density in the right apex. There are a few scattered opacities in the mid and lower lung zones. No pneumothorax. There are osteophytes in the spine XR/XR chest 2V IMPRESSION: Abnormal x-ray. Previous cardiac surgery. Irregular opacity right apex. Malignancy not excluded. If there are more recent previous chest x-rays for comparison they would be helpful.
--- NOTE | ~2023-09-05 | CT_ITS ---
EXAMINATION: CT CHEST, ABDOMEN AND PELVIS WITH CONTRAST CLINICAL INFORMATION: Anemia. Black stool. Right upper lobe opacity on radiographs. COMPARISON: Chest radiograph done earlier the same day. PET/CT dated 05/17/2020. TECHNIQUE: Contiguous axial thin section helical images of the chest, abdomen and pelvis were performed following the administration of oral contrast and 85 mL of intravenous Omnipaque 350. The data set was reformatted in the coronal and sagittal planes and reviewed on an independent workstation. This CT examination was performed using dose optimization techniques as appropriate, variously including the following: *Automated exposure control *Adjustment of mA and/or kV according to patient size (this includes techniques or standardized protocols for targeted exams where dose is matched to indication/reason for exam; i.e. extremities or head) *Use of iterative reconstruction technique DLP: 1271 mGy-cm. FINDINGS: LUNGS: Prominent emphysematous changes throughout the lungs, most severe within the lung apices. There is an irregular soft tissue density within the right lung apex which appears spiculated. This measures approximately 2.7 x 4.5 x 1.8 cm (AP x ML x CC). This extends to the posterolateral pleura where there is adjacent pleural thickening. Findings are significantly increased when compared to the PET/CT dated 05/17/2020 and are concerning for a neoplastic lesion. There are a few scattered bilateral calcified granulomas. No additional large pulmonary nodule or mass. Bibasilar dependent atelectasis. PLEURA: Mild bibasilar pleural thickening. No pleural effusion or pneumothorax. MEDIASTINUM: Mild cardiomegaly, unchanged. No significant pericardial effusion. No thoracic aortic dilatation or dissection. Atherosclerotic calcifications. The main pulmonary artery is unremarkable. Coronary artery atherosclerotic calcifications and post CABG changes are noted. Mediastinal lymphadenopathy, including a subcarinal lymph node measuring up to 1.3 x 3.4 cm (previously 1.1 x 2.4 cm. Additionally there is a precarinal lymph node adjacent to the right mainstem bronchus measuring up to 1.2 x 2.1 cm (previously 1.2 x 2.0 cm). Preaortic lymph node lateral to the left mainstem bronchus measuring up to 1.9 x 2.8 cm in greatest axial dimension (previously 0.5 x 0.6 cm). Additional mediastinal lymph nodes have increased when compared to the prior examination. CHEST WALL/AXILLA: No lymphadenopathy. THYROID: Unremarkable LIVER, GALLBLADDER, AND BILIARY TREE: Slightly lobulated hepatic contour is unchanged. New, mild perihepatic ascites. No discrete hepatic parenchymal lesion or intrahepatic biliary ductal dilatation. There appears to be partial calcification of the gallbladder wall which is not seen on the prior examination. Pericholecystic fluid without significant wall thickening. No extrahepatic biliary ductal dilatation. PANCREAS: Atrophic. No associated inflammatory change. SPLEEN: Unremarkable. ADRENAL GLANDS: Unremarkable. KIDNEYS AND URETERS: Normal size, shape, and attenuation. No hydronephrosis, hydroureter, or calculi. Simple right upper pole renal cyst, increased in size when compared to the prior examination. Findings are not clinically significant and no dedicated follow-up imaging is recommended. No perinephric stranding. BLADDER: Unremarkable. GASTROINTESTINAL TRACT: Sigmoid diverticulosis without evidence of acute diverticulitis. No bowel wall thickening or inflammatory change. No hyperdensity within the bowel lumen or evidence of contrast extravasation; however, evaluation is not ideal to evaluate for GI bleed. No small or large bowel obstruction. The appendix extends into the right abdominal wall spigelian hernia. No evidence of acute appendicitis. PERITONEAL CAVITY: No intra-abdominal free air or free fluid. ABDOMINAL WALL: There is a right abdominal wall spigelian hernia containing fat and the distal aspect of the appendix. No associated inflammatory change. Small amount of fluid within the hernia. LYMPH NODES: No significant lymphadenopathy. VASCULAR: Contrast opacifies the abdominal aorta and its branch vessels. No abdominal aortic dilatation or dissection. Scattered atherosclerotic calcifications. The IVC is unremarkable. PELVIC VISCERA: Prostatomegaly is redemonstrated. OSSEOUS STRUCTURES: No acute osseous abnormality. No lytic or blastic osseous lesion. CT/CT abdomen pelvis w IV con IMPRESSION: 1. Prominent emphysematous changes throughout the lungs. Spiculated soft tissue density within the right lung apex which extends to the posterolateral pleura with adjacent pleural thickening. Findings are significantly increased when compared to the PET/CT dated 05/17/2020 and are concerning for a neoplastic lesion. 2. Prominent mediastinal lymphadenopathy, increased when compared to the prior examination. 3. New, mild perihepatic ascites. No discrete hepatic parenchymal lesion or biliary ductal dilatation. 4. Partial calcification of the gallbladder wall, new when compared to the prior examination. Pericholecystic fluid without significant wall thickening or inflammatory change. Findings could indicate acute cholecystitis. 5. Diverticulosis without evidence of acute diverticulitis. No bowel wall thickening or inflammatory change. No small or large bowel obstruction. 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 No associated inflammatory change. 6. No intra-abdominal lymphadenopathy or ascites. 7. Additional chronic findings are unchanged.
[2023-09-05 16:35] VITALS: BP 130/64; PULSE 78; RESP 14; TEMP 36.4; O2SAT 100; BMI 26.3
--- NOTE | 2023-09-05 16:41 | ED_ITS ---
HPI - General Adult General Chief complaint: GI Bleed Stated complaint: sent from oncology for tests Time Seen by Provider: 09/05/23 16:30 Source: patient Mode of arrival: wheelchair Limitations: no limitations History of Present Illness HPI narrative: Patient is a 78-year-old male who presents emergency department, from Oncology office; he is followed by Dr. Shanks for anemia. He has been experiencing fatigue and mild shortness of breath over the past week. Was noted to be anemic today when compared to labs in July, he received 2 units PRBC prior to arrival. Dr. Boothe has been consulted and as scheduled patient for an endoscopy tomorrow. When asked he denies any hematochezia, he does report having black stools which he attributes to his iron supplementation. Denies fevers, chills, chest pain, nausea vomiting, abdominal pain, genitourinary symptoms/hematuria. Related Data Home Medications Medication Instructions Recorded Confirmed atorvastatin 40 mg tablet 40 mg PO DAILY@169903/19/22 09/05/23 fenofibrate nanocrystallized 145 145 mg PO DAILY@0703/19/22 09/05/23 mg tablet dutasteride 0.5 mg capsule 0.5 mg PO DAILY@169908/06/22 09/05/23 (Avodart) bumetanide 2 mg tablet 2 mg PO BID@0700,169909/05/23 09/05/23 cholecalciferol (vitamin D3) 10 10 mcg PO DAILY@0709/05/23 09/05/23 mcg (400 unit) tablet digoxin 125 mcg (0.125 mg) tablet 125 mcg PO SUMOTUTHFR 09/05/23 09/05/23 (Digox) ferrous sulfate 325 mg (65 mg 325 mg PO BID@0700,17009/05/23 09/05/23 iron) tablet metoprolol succinate 25 mg 25 mg PO QPM@169909/05/23 09/05/23 tablet,extended release 24 hr omeprazole 20 mg capsule,delayed 20 mg PO DAILY 09/05/23 09/05/23 release potassium chloride 20 mEq 20 meq PO DAILY@0700 09/05/23 09/05/23 tablet,extended release rivaroxaban 20 mg tablet (Xarelto) 20 mg PO DAILY@169909/05/23 09/05/23 vit C 250 mg-vit E 90 mg-zinc 40 1 tab PO BID@1200,1700 09/05/23 09/05/23 mg-copper 1 [id number] capsule (PreserVision AREDS-2) Previous Rx's Medication Instructions Recorded midodrine 2.5 mg tablet 2.5 mg PO TID #270 tabs 09/05/23 Allergies Allergy/AdvReac Type Severity Reaction Status Date / Time hydromorphone [From Dilaudid] AdvReac Confusion Verified 09/05/23 16:34 Review of Systems 2 Review of Systems: Yes all other systems are reviewed and are negative [facility] Past Medical History Attestation statement: The following information was validated with the patient. Source: old records reviewed Medical History Acute congestive heart failure Acute upper gastrointestinal bleeding Acute blood loss anemia COPD (chronic obstructive pulmonary disease) Hyperlipidemia Afib Nasal sinus tumor CAD (coronary artery disease) Surgical History Hx of CABG Social History Social History Household Members: Spouse Housing: House Do you presently have visiting nurse or other home services: No Alcohol intake: current Alcohol intake frequency: a few times a week Alcohol type: beer Patient Tobacco Use Status: Former Tobacco user Tobacco use type: Cigar Smoked in Last 30 Days: Yes Use of substances other than those prescribed or required for medical reasons: No Have you been hit, kicked, punched, or otherwise hurt by someone within the past year? If so, by whom?: No Do you feel safe in your current relationship?: Yes Is there a partner from a previous relationship who is making you feel unsafe now?: No Are you made to feel afraid or neglected: No Advance Directives: Yes Advance Directives on File: Yes Advance Directives Date on File: 02/16/22 Do you have thoughts of harming others: None Do you have a plan to hurt others: No Plan Recently lost weight without trying: No Nutrition Risks: No Nutritional Risk service: Yes Current occupational status: retired Physical Exam ED Vital Signs: Vital Signs - 24 hr 09/05/23 16:35 09/05/23 19:01 Temperature 97.6 F 97.5 F Pulse Rate 78 90 Respiratory Rate 14 16 Blood Pressure 130/64 130/67 Pulse Oximetry 100 98 Oxygen Delivery Method Room Air Room Air BMI result Body Mass Index 26.3 Appearance: Alert.?Oriented to person, place and time. No acute distress.?Normal affect. Eyes: Pupils equal, round and reactive to light.? ENT: Pharynx normal.?? Neck: Normal inspection.? Neck supple.?? CVS: Heart sounds normal. Normal heart rate and rhythm.? Pulses normal.?? Respiratory: No respiratory distress.? Lung sounds with rhonchi bilaterally Abdomen: Soft and non-tender. Normoactive bowel sounds. Skin: Skin warm and dry.? Normal skin color.? Extremities: No lower extremity edema.? No calf ttp? Neuro: Moves all extremities spontaneously. Sensation intact bilaterally. No focal neuro deficits. Ambulates with normal steady gait. Course Reevaluation(s) Reevaluation #1: On CXR Right apex opacity, per patient and his this has been there ?for a few years?. Reports previously being found by his PCP resulting in PET scan and subsequent detection of sinus cancer. Reviewed PET scan from 05/17/2020 identifying irregular opacity posteriorly in the right upper lobe 2.2 x 1.4cm without FDG activity suggesting a benign etiology with recommendation for repeat CT in 6 months, which does not appear to have been obtained. Spoke with patient and family they are agreeable to having CT chest and AP obtained at this time. Time: 17:40 Reevaluation #2: CT of the chest reveals spiculated soft tissue density of the right lung apex which has significantly increased when compared to prior PET scan concerning for neoplastic lesion, prominent mediastinal lymphadenopathy also increased, mild perihepatic traumatic ascites, pericholecystic fluid without significant wall thickening, concerning for possible acute cholecystitis though on exam does not have evidence of this. Patient admitted to medicine service Medications Administered Generic Name Dose Route Start Last Admin Trade Name Freq PRN Reason Stop Dose Admin Albuterol/Ipratropium 3 ml 09/05/23 20:00 09/05/23 21:05 Albuterol/Iprat 2.5/0.5mg 3 Ml Ampul.Neb INHALE 3 ml RQ4H WHILE AWAKE SHAWANDA Administration Atorvastatin Calcium 40 mg 09/05/23 19:30 09/05/23 19:34 Atorvastatin Calcium 40 Mg Tablet PO 40 mg DAILY@1700 SHAWANDA Administration Midodrine 2.5 mg 09/05/23 19:30 09/05/23 20:05 Midodrine Hcl 2.5 Mg Tablet PO 2.5 mg TID@0700,1200,1700 SHAWANDA Administration Pantoprazole Sodium 40 mg 09/05/23 19:05 09/05/23 19:34 Pantoprazole Sodium 40 Mg/10 Ml Vial IVPUSH 40 mg BID@0630,1630 SHAWANDA Administration Sodium Chloride 3 ml 09/06/23 00:00 09/05/23 23:55 0.9 % Sodium Chloride Flush 3 Ml Syringe IVFLUSH 3 ml QSHIFT SHAWANDA Administration Discontinued Medications Generic Name Dose Route Start Last Admin Trade Name Freq PRN Reason Stop Dose Admin Sodium Chloride 1,000 mls @ 999 mls/hr 09/05/23 18:00 09/05/23 20:10 Ns IV 09/05/23 19:00 Infused .Q1H1M SHAWANDA Infusion Iohexol 85 ml 09/05/23 18:54 09/05/23 18:54 Iohexol 350 Mg/Ml 100 Ml Infus..Btl IV 09/05/23 18:55 85 ml ONCE ONE Administration Medical Decision Making Medical Decision Making MDM Narrative: Patient is a 78-year-old male past medical history anemia, CHF, atrial fibrillation on Xarelto, CAD, COPD, hyperlipidemia. Arrives to the emergency department for further evaluation regarding left lung rhonchi, Symptomatic anemia (H&H 5.8/19.3 today, when compared to 07/30/2023 11.1/35.7 respectively), fatigue over the past week, denies hematochezia, reports black stools secondary to iron supplementation, chronic anticoagulation with Xarelto for atrial fibrillation. At oncology visit prior to arrival he received transfusion of 2 units PRBCs, had GI consultation with Dr. Boothe; recommends upper endoscopy to rule out slow GI loss, had recent colonoscopy 3 months ago which was reportedly negative. Patient declines to have occult stool specimen obtained. Dr. Shanks is requesting hospital admission to medicine service. Differential Diagnosis Differential Diagnoses: The differential diagnosis associated with the presentation includes (Upper GIB, symptomatic anemia; BASHIR, anemia of chronic disease, underlying myelo infiltrative disorder ) Admission/Observation Consideration of admission/observation: Escalation of care including admission/observation considered (See narrative above) Consult Healthcare Provider Management of the patient was discussed with: Reception Centre Manager (Hematology; Dr. Shanks - see narrative above) Lab Data MDM Lab Attestation statement: I reviewed the patient's lab results. (See narrative above) 09/05/23 17:33 Labs: Lab Results 09/05/23 Range/Units 17:33 WBC 5.9 (4.8-10.8) X10*3/uL RBC 2.53 L D (4.60-5.80) X10*6/uL Hgb 8.4 L D (14.0-18.0) g/dl Hct 26.0 L D (42.0-52.0) % MCV 102.8 H D (80.0-98.0) fL MCH 33.2 H (27.0-33.0) pg MCHC 32.3 (31.0-36.0) g/dl RDW 19.9 H (11.0-16.0) % Plt Count 193 (160-400) X10*3/uL MPV 10.3 (9.4-12.4) fL Immature Gran % (Auto) 0.9 H (0.0-0.4) % Neut % (Auto) 61.8 (45-73) % Lymph % (Auto) 22.2 (20-40) % Bradford % (Auto) 13.7 H (2-11) % Eos % (Auto) 0.9 (0-4) % Baso % (Auto) 0.5 (0-2) % Lymph # (Auto) 1.3 (1.2-4.9) X10*3/uL Bradford # (Auto) 0.8 (0.1-1.2) X10*3/uL Eos # (Auto) 0.1 (0.0-0.4) X10*3/uL Baso # (Auto) 0.0 (0.0-0.2) X10*3/uL Abs Immat Gran (auto) 0.05 H (0.00-0.03) X10*3/uL Absolute Neuts (auto) 3.6 (2.0-8.3) x10*3/uL Absolute Nucleated RBC 0.000 (0.0-0.012) X10*3/uL Nucleated RBC % (auto) 0.0 (0.0-0.2) /100WBC Independent Interpretation I performed an independent interpretation of an: Plain X-Ray (Right apex opacity appears new when compared to prior chest x-ray February 2022) Radiology Impression Discussion of test interpretation with radiology: I have reviewed the radiologist's reading. Radiologist Impression: XR/XR chest 2V IMPRESSION: Abnormal x-ray. Previous cardiac surgery. Irregular opacity right apex. Malignancy not excluded. If there are more recent previous chest x-rays for comparison they would be helpful. CT/CT chest w IV con IMPRESSION: 1. Prominent emphysematous changes throughout the lungs. Spiculated soft tissue density within the right lung apex which extends to the posterolateral pleura with adjacent pleural thickening. Findings are significantly increased when compared to the PET/CT dated 05/17/2020 and are concerning for a neoplastic lesion. 2. Prominent mediastinal lymphadenopathy, increased when compared to the prior examination. 3. New, mild perihepatic ascites. No discrete hepatic parenchymal lesion or biliary ductal dilatation. 4. Partial calcification of the gallbladder wall, new when compared to the prior examination. Pericholecystic fluid without significant wall thickening or inflammatory change. Findings could indicate acute cholecystitis. 5. Diverticulosis without evidence of acute diverticulitis. No bowel wall thickening or inflammatory change. No small or large bowel obstruction. 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 No associated inflammatory change. 6. No intra-abdominal lymphadenopathy or ascites. 7. Additional chronic findings are unchanged. Independent Historian Clinical information obtained from an independent historian. History obtained from or confirmed by: Spouse (Present who confirms history) External Record Review External record reviewed: Outpatient record Discharge Plan Discharge Clinical Impression: Symptomatic anemia Patient Disposition: Admitted As Inpatient Interventions: Admission Worksheet (ED) Last Done: 09/05/23 20:14
--- NOTE | 2023-09-05 16:45 | PC.NURSE ---
a&ox4. vss and up to date. nsr on the manager cardiac cath. hx afib - on xarelto. pt follows dr. calvo d/t hx of anemia. pt verbalizes feeling off x a few days where he then called dr. calvo where he was then seen in her office. labs were obtained - H&H were lower than normal. pt received 2 units of RBCs during his visit to oncology. pt denies blood in stool. has no pain. denies all sx. dr. calvo also requesting chest xray d/t auscultated rhonchi in the left lower lung. pt is scheduled for an endoscopy tomorrow at 1230 that was previously scheduled prior to coming into ED. no sob/wob noted. respirations even and unlabored. plan of care ongoing. call bautista placed within reach.
--- NOTE | 2023-09-05 17:31 | P.HPHOSP_ITS ---
History of Present Illness Date of Service: 09/05/23 Attending physician on admission: Radha Yanez Chief Complaint: Fatigue, SOB, low H&H Pt is a 78-year-old male with a PMH significant for?HLD, CAD s/p CABG, HFpEF, chronic AFib on Xarelto, anemia, GERD, hx of nasopharyngeal carcinoma, and orthostatic hypotension who presents to the ED with?from Oncology office visit where he follows with Dr. Shanks for anemia. Routine labs found him to have low H&H of 5.8/19.3. He was transfused two units PRBCs at the oncology office and sent to the ED for further workup and evaluation. Patient states that he has been feeling tired, weak, and occasionally dizzy with SOB for the past 1-1/2 weeks. Denies hematochezia, melena. Has been on iron supplementation for many years with chronically black stool; denies noticing any recent change to his stool. No hematemesis, hemoptysis. Patient states that he has developed a relatively new nonproductive cough for the past month or so. Denies fever, chills, nausea, vomiting, abdominal pain. No chest pain/pressure, palpitations. In the ED pt had elevated heart rate up to 96 and soft BP as low as 126/58. Labs were significant for H&H of 5.8/19.3 (down from 11.1/35.7 on 07/30), iron to 61 with% saturation 63, albumin 3.2, and protein 5.7. No significant electrolyte abnormalities. Hepatic and renal function WNL. Patient declined occult stool testing. CXR showed irregular opacity in right apex, malignancy not excluded. CT of chest and abdomen and pelvis w/contrast pending. Pt was transfused 2 units PRBCs prior to arrival at ED. Pt will be admitted to the hospital for treatment further workup of symptomatic anemia. Review of Systems 2 Review of Systems: Fatigue, generalized weakness Shortness of breath Nnproductive cough Denies hematochezia, melena, hemoptysis, hematemesis No chest pain/pressure, palpitations Denies fever, chills, nausea, vomiting, abdominal pain PMFSH Medical History Acute congestive heart failure Acute upper gastrointestinal bleeding Acute blood loss anemia COPD (chronic obstructive pulmonary disease) Hyperlipidemia Afib Nasal sinus tumor CAD (coronary artery disease) Surgical History Hx of CABG Social History Household Members: Spouse Housing: House Do you presently have visiting nurse or other home services: No Alcohol intake: current Alcohol intake frequency: a few times a week Alcohol type: beer Patient Tobacco Use Status: Former Tobacco user Tobacco use type: Cigar Smoked in Last 30 Days: Yes Use of substances other than those prescribed or required for medical reasons: No Have you been hit, kicked, punched, or otherwise hurt by someone within the past year? If so, by whom?: No Do you feel safe in your current relationship?: Yes Is there a partner from a previous relationship who is making you feel unsafe now?: No Are you made to feel afraid or neglected: No Advance Directives: Yes Advance Directives on File: Yes Advance Directives Date on File: 02/16/22 Do you have thoughts of harming others: None Do you have a plan to hurt others: No Plan Recently lost weight without trying: No Nutrition Risks: No Nutritional Risk service: Yes Current occupational status: retired Meds Allergies Allergy/AdvReac Type Severity Reaction Status Date / Time hydromorphone [From Dilaudid] AdvReac Confusion Verified 09/05/23 16:34 Home Medications Medication Instructions Recorded Confirmed Last Taken Type atorvastatin 40 mg tablet 40 mg PO DAILY@1700 03/19/22 09/05/23 09/04/23 History fenofibrate nanocrystallized 145 145 mg PO DAILY@0700 03/19/22 09/05/23 09/05/23 History mg tablet dutasteride 0.5 mg capsule 0.5 mg PO DAILY@1700 08/06/22 09/05/23 09/04/23 History (Avodart) bumetanide 2 mg tablet 2 mg PO BID@0700,1700 09/05/23 09/05/23 09/05/23 History cholecalciferol (vitamin D3) 10 10 mcg PO DAILY@0700 09/05/23 09/05/23 09/05/23 History mcg (400 unit) tablet digoxin 125 mcg (0.125 mg) tablet 125 mcg PO SUMOTUTHFR 09/05/23 09/05/23 09/05/23 History (Digox) ferrous sulfate 325 mg (65 mg 325 mg PO BID@0700,1700 09/05/23 09/05/23 09/05/23 History iron) tablet metoprolol succinate 25 mg 25 mg PO QPM@1700 09/05/23 09/05/23 09/04/23 History tablet,extended release 24 hr omeprazole 20 mg capsule,delayed 20 mg PO DAILY 09/05/23 09/05/23 09/05/23 History release potassium chloride 20 mEq 20 meq PO DAILY@0700 09/05/23 09/05/23 09/05/23 History tablet,extended release rivaroxaban 20 mg tablet (Xarelto) 20 mg PO DAILY@1700 09/05/23 09/05/23 09/04/23 History vit C 250 mg-vit E 90 mg-zinc 40 1 tab PO BID@1200,1700 09/05/23 09/05/23 09/04/23 History mg-copper 1 [id number] capsule (PreserVision AREDS-2) Physical Exam 2 Vital Signs and Narrative: Vital Signs: Last Vital Signs Temp 97.6 F 09/05/23 16:35 Pulse 78 09/05/23 16:35 Resp 14 09/05/23 16:35 BP 130/64 09/05/23 16:35 Pulse Ox 100 09/05/23 16:35 O2 Del Method Room Air 09/05/23 16:35 BMI result Body Mass Index 26.3 Constitutional: Alert, in no acute distress. Mental Status: Oriented to person, place and time. Eyes: Pupils are equal, round, and reactive to light. Ear, Nose, and Throat: Oropharynx clear, mucous membranes moist. Ears and nose without deformities. Trachea midline. Respiratory: Diffuse expiratory rhonchi bilaterally. Persistent wet-sounding cough. Cardiovascular: Irregularly irregular rhythm. Gastrointestinal: Abdomen soft, non-tender, non-distended. Normal bowel sounds. Neurologic: Cranial nerves II-XII are grossly intact bilaterally. No focal neurological deficits. Moves all extremities spontaneously. Skin: Warm, dry. Musculoskeletal: No cyanosis or clubbing. Extremities: No edema. Psychiatric: Normal mood and affect. Results Labs 09/05/23 17:33 Assessment and Plan (1) Anemia: Qualifiers: Anemia type: unspecified type Qualified Code(s): D64.9 - Anemia, unspecified Status: Acute Plan Pt is a 78-year-old male with a PMH significant for?HLD, CAD s/p CABG, HFpEF, chronic AFib on Xarelto, anemia, GERD, hx of nasopharyngeal carcinoma, and orthostatic hypotension who presents to the ED with?from Oncology office visit where he follows with Dr. Shanks for anemia. Pt will be admitted to the hospital for treatment further workup of symptomatic anemia. Acute symptomatic anemia Patient's H&H 5.819.3, down from 11.1/35.7 on 07/30/2023 Patient with fatigue, weakness, dizziness x1.5 weeks Unclear etiology: Concerning for GI bleed, though patient declined stool occult blood testing in ED Transfused 2 units PRBCs at Oncology office Will treat with IV Protonix Hold Xarelto GI consult, EGD planned for tomorrow Clear liquid diet for now, NPO after midnight Check CT of abdomen and pelvis w/contrast Follow CBC Cough Patient complaining of nonproductive cough for the past 1.5 weeks CXR showed irregular opacity in right apex, malignancy not excluded Patient has 50 pack-year history of smoking, quit 20 years ago Does not carry a COPD diagnosis, not on home inhalers DuoNebs Q4 for SOB Guaifenesin for cough Check CT of chest w/contrast Monitor respiratory status Hx of HFpEF Not in acute exacerbation Continue home bumetanide Chronic AFib Hold Xarelto d/t anemia Continue digoxin, metoprolol HLD/CAD Continue statin, fenofibrate Orthostatic hypotension Continue midodrine GERD IV Protonix Hold home omeprazole Full Code Attending:?Dr. Yanez DVT Prophylaxis: Pneumatic boots given acute anemia Pt will require a hospitalization of at least two nights for treatment of?acute symptomatic anemia. Given severity of patient's acute anemia as well as significant comorbidities including CAD status post CABG, patient will require hospitalization for further workup for possible GI bleed with specialist consultation and surgical intervention, as well as close monitoring of labs. Quality Stroke Does the patient have a stroke diagnosis?: No VTE Prior VTE?: No VTE Risk Level:: Medical - moderate - high VTE Device Contraindication: N/A - Device Ordered VTE Drug Contraindication: Treatment Not Indicated
--- NOTE | 2023-09-05 17:40 | PC.NURSE ---
labs obtained/sent to lab.
[2023-09-05 17:53] LABS: MANUAL DIFF FLAG NO
--- NOTE | 2023-09-05 18:15 | PHA.MEDREC ---
Pharmacy Consult ? Medication Reconciliation Pharmacy has completed the medication reconciliation. Confirmed medications with . She reports that he has not has his 5pm medications
[2023-09-05 18:54] LABS: Basophils Percent Auto 0.5 % (0-2); Eosinophils Absolute Auto 0.1 X10*3/uL (0.0-0.4); Eosinophils Percent Auto 0.9 % (0-4); Hemoglobin 8.4 g/dl (14.0-18.0); Imm Gran Abs Auto 0.05 X10*3/uL (0.00-0.03); Imm Gran Pct Auto 0.9 % (0.0-0.4); Lymphocytes Absolute Auto 1.3 X10*3/uL (1.2-4.9); Lymphocytes Percent Auto 22.2 % (20-40); Mean Corpuscular HGB Conc 32.3 g/dl (31.0-36.0); Mean Corpuscular Hemoglobin 33.2 pg (27.0-33.0); Mean Corpuscular Volume 102.8 fL (80.0-98.0); Mean Platelet Volume 10.3 fL (9.4-12.4); Monocytes Absolute Auto 0.8 X10*3/uL (0.1-1.2); Monocytes Percent Auto 13.7 % (2-11); Neutrophils Absolute Auto 3.6 x10*3/uL (2.0-8.3); Neutrophils Percent Auto 61.8 % (45-73); Platelet Count 193 X10*3/uL (160-400); Red Blood Count 2.53 X10*6/uL (4.60-5.80); Red Cell Distribution Width 19.9 % (11.0-16.0); White Blood Count 5.9 X10*3/uL (4.8-10.8)
[2023-09-05] MEDS: iohexoL 350 MG/ML 100 ML INFUS..BTL 85 ML IV (18:54)
--- NOTE | 2023-09-05 18:58 | PM.EVENT ---
Event Note Date of Service: 09/05/23 Event Note: Addendum to history and physical by the advanced practice provider, Julieta Silva I interviewed and examined the patient. I discussed their presentation and management with the JOSE. I reviewed the history and physical and agree with the documentation, with the following additions and corrections: 78yo M with CAD s/p CABG 20 yr ago, HLD, HFpEF, chronic AF on Xarelto, GERD followed by Dr Shanks for anemia, found to have Hb 5.8 down from 11.1 on 07/30/23. Transfused 2u pRBCs in Oncology. Plan admit to telemetry, NPO for EGD in AM, IV PPI. Incidental R apex irregularity for which we will check CT chest. Time Spent With Patient Time: Total time managing care of this patient today ____ minutes.
[2023-09-05] MEDS: 0.9 % Sodium Chloride 1,000 ML 999 ML IV (18:59)
[2023-09-05 19:01] VITALS: BP 130/67; PULSE 90; RESP 16; TEMP 36.4; O2SAT 98
[2023-09-05] MEDS: Atorvastatin Calcium 40 MG TABLET PO (19:34)
[2023-09-05] MEDS: Pantoprazole Sodium 40 MG/10 ML VIAL IVPUSH (19:34)
[2023-09-05 20:05] VITALS: BP 135/65; PULSE 89; RESP 20; TEMP 36.7; O2SAT 95
[2023-09-05] MEDS: Midodrine HCl 2.5 MG TABLET PO (20:05)
[2023-09-05] MEDS: Albuterol/Iprat 2.5/0.5MG 3 ML AMPUL.NEB INHALE (21:05)
[2023-09-05 21:06] VITALS: PULSE 87; O2SAT 96
[2023-09-05 21:47] VITALS: BP 129/55; PULSE 101; RESP 20; TEMP 36.4; O2SAT 97
--- NOTE | 2023-09-05 22:41 | PC.NURSE ---
Patient resting quietly at present,admitted by discharge planner Zofia
[2023-09-05] MEDS: 0.9 % Sodium Chloride Flush 3 ML SYRINGE IVFLUSH (23:55)
[2023-09-06] VITALS: PULSE 98; RESP 20
[2023-09-06] MEDS: Pantoprazole Sodium 40 MG/10 ML VIAL IVPUSH (06:26)
[2023-09-06 07:55] VITALS: BP 106/54; PULSE 89; RESP 18; TEMP 36.7; O2SAT 95
[2023-09-06 07:57] LABS: Hematocrit 23.8 % (42.0-52.0); Hemoglobin 7.6 g/dl (14.0-18.0); Mean Corpuscular HGB Conc 31.9 g/dl (31.0-36.0); Mean Corpuscular Hemoglobin 32.1 pg (27.0-33.0); Mean Corpuscular Volume 100.4 fL (80.0-98.0); Mean Platelet Volume 9.9 fL (9.4-12.4); Platelet Count 181 X10*3/uL (160-400); Red Blood Count 2.37 X10*6/uL (4.60-5.80); Red Cell Distribution Width 20.8 % (11.0-16.0); White Blood Count 7.4 X10*3/uL (4.8-10.8)
[2023-09-06] MEDS: Midodrine HCl 2.5 MG TABLET PO ×2 (08:31→12:54)
[2023-09-06] MEDS: 0.9 % Sodium Chloride Flush 3 ML SYRINGE IVFLUSH (08:31)
[2023-09-06] MEDS: Digoxin 0.125 MG TABLET PO (08:31)
[2023-09-06 09:03] VITALS: BP 142/67; PULSE 90; RESP 20; TEMP 37; O2SAT 98
--- NOTE | 2023-09-06 09:06 | HO.ANESPROP2 ---
HPI - Anesthesia Eval Consult details Narrative: Symptomatic Anemia PMFSH Active Problems Active Problems: All Active Problems (Updated 09/06/23 @ 02:36 by Agustina Powell CNP) Symptomatic anemia (Acute) Anemia (Acute) Low blood pressure (Acute) CAD (coronary artery disease) (Acute) (HFpEF) heart failure with preserved ejection fraction (Acute) Chronic atrial fibrillation (Acute) Gross hematuria (Acute) Cellulitis of right lower extremity (Acute) Hypotension (Acute) Gastritis (Acute) Past Medical History Medical History Acute congestive heart failure Acute upper gastrointestinal bleeding Acute blood loss anemia COPD (chronic obstructive pulmonary disease) Hyperlipidemia Afib Nasal sinus tumor CAD (coronary artery disease) Family History Family history of problems with anesthesia: No Surgical History Surgical History Hx of CABG History of Problems with Anesthesia: No Social History Social History Household Members: Spouse Housing: House Do you presently have visiting nurse or other home services: No Alcohol intake: current Alcohol intake frequency: a few times a week Alcohol type: beer Patient Tobacco Use Status: Former Tobacco user Tobacco use type: Cigar Smoked in Last 30 Days: Yes Use of substances other than those prescribed or required for medical reasons: No Currently Displaying Signs/Symptoms of Drug Intoxication Withdrawal: No Have you been hit, kicked, punched, or otherwise hurt by someone within the past year? If so, by whom?: No Do you feel safe in your current relationship?: Yes Is there a partner from a previous relationship who is making you feel unsafe now?: No Are you made to feel afraid or neglected: No Advance Directives: Yes Advance Directives on File: Yes Advance Directives Date on File: 02/16/22 Do you have thoughts of harming others: None Do you have a plan to hurt others: No Plan Recently lost weight without trying: No Nutrition Risks: No Nutritional Risk service: Yes Current occupational status: retired Meds Allergies Allergy/AdvReac Type Severity Reaction Status Date / Time hydromorphone [From Dilaudid] AdvReac Confusion Verified 09/05/23 16:34 Active Medications: Current Medications Acetaminophen (Acetaminophen 325 Mg Tablet) 650 mg PO Q6H PRN PRN Reason: Pain, Mild (Pain Scale 1-3) Albuterol/Ipratropium (Albuterol/Iprat 2.5/0.5mg 3 Ml Ampul.Neb) 3 ml INHALE RQ4H WHILE AWAKE [facility] Last Admin: 09/06/23 08:23 Dose: Not Given Atorvastatin Calcium (Atorvastatin Calcium 40 Mg Tablet) 40 mg PO DAILY@1700 [facility] Last Admin: 09/05/23 19:34 Dose: 40 mg Bumetanide (Bumetanide 1 Mg Tablet) 2 mg PO BID@0700,1700 [facility]; Protocol Last Admin: 09/06/23 08:31 Dose: Not Given Digoxin (Digoxin 0.125 Mg Tablet) 0.125 mg PO SuMoTuThFr@0800 [facility] Last Admin: 09/06/23 08:31 Dose: 0.125 mg Docusate Sodium (Docusate Sodium 100 Mg Capsule) 100 mg PO DAILY PRN PRN Reason: Constipation Fenofibrate (Fenofibrate 160 Mg Tablet) 160 mg PO DAILY@0700 [facility] Last Admin: 09/06/23 08:31 Dose: Not Given Ferrous Sulfate (Ferrous Sulfate 324 Mg Tablet.Dr) 324 mg PO BID@0700,1700 [facility] Last Admin: 09/06/23 08:31 Dose: Not Given Guaifenesin/Dextromethorphan (Guaifenesin Dm 200/20/10 Ml 10 Ml Syrup) 10 ml PO Q4H PRN PRN Reason: Cough Melatonin (Melatonin 3 Mg Tablet) 6 mg PO BEDTIME PRN PRN Reason: Insomnia Metoprolol Succinate (Metoprolol Succinate Er 25 Mg Tab.Er.24h) 25 mg PO DAILY@1700 [facility]; Protocol Midodrine (Midodrine Hcl 2.5 Mg Tablet) 2.5 mg PO TID@0700,1200,1700 [facility] Last Admin: 09/06/23 08:31 Dose: 2.5 mg Ondansetron HCl (Ondansetron Hcl 4 Mg/2 Ml Vial) 4 mg IVPUSH Q8H PRN PRN Reason: Nausea and Vomiting Pantoprazole Sodium (Pantoprazole Sodium 40 Mg/10 Ml Vial) 40 mg IVPUSH BID@0630,1630 [facility] Last Admin: 09/06/23 06:26 Dose: 40 mg Potassium Chloride (Potassium Chloride Er 20 Meq Tab.Er.Prt) 20 meq PO DAILY@0700 [facility] Last Admin: 09/06/23 08:31 Dose: Not Given Sodium Chloride (0.9 % Sodium Chloride Flush 3 Ml Syringe) 3 ml IVFLUSH QSHIFT [facility] Last Admin: 09/06/23 08:31 Dose: 3 ml Vitamin D (Cholecalciferol (Vitamin D3) 10 Mcg Tablet) 10 mcg PO DAILY@0700 [facility] Last Admin: 09/06/23 08:31 Dose: Not Given Home Medications Medication Instructions Recorded Confirmed Last Taken Type atorvastatin 40 mg tablet 40 mg PO DAILY@1700 03/19/22 09/05/23 09/04/23 History fenofibrate nanocrystallized 145 145 mg PO DAILY@0703/19/22 09/05/23 09/05/23 History mg tablet dutasteride 0.5 mg capsule 0.5 mg PO DAILY@1700 08/06/22 09/05/23 09/04/23 History (Avodart) bumetanide 2 mg tablet 2 mg PO BID@0700,17009/05/23 09/05/23 09/05/23 History cholecalciferol (vitamin D3) 10 10 mcg PO DAILY@0709/05/23 09/05/23 09/05/23 History mcg (400 unit) tablet digoxin 125 mcg (0.125 mg) tablet 125 mcg PO SUMOTUTHFR 09/05/23 09/05/23 09/05/23 History (Digox) ferrous sulfate 325 mg (65 mg 325 mg PO BID@0700,1700 09/05/23 09/05/23 09/05/23 History iron) tablet metoprolol succinate 25 mg 25 mg PO QPM@17009/05/23 09/05/23 09/04/23 History tablet,extended release 24 hr omeprazole 20 mg capsule,delayed 20 mg PO DAILY 09/05/23 09/05/23 09/05/23 History release potassium chloride 20 mEq 20 meq PO DAILY@0700 09/05/23 09/05/23 09/05/23 History tablet,extended release rivaroxaban 20 mg tablet (Xarelto) 20 mg PO DAILY@1700 09/05/23 09/05/23 09/04/23 History vit C 250 mg-vit E 90 mg-zinc 40 1 tab PO BID@1200,1700 09/05/23 09/05/23 09/04/23 History mg-copper 1 [id number] capsule (PreserVision AREDS-2) Exam Height,Weight and Vital Signs: Height 5 ft 11 in Weight 85.4 kg Last Vital Signs Temp 98.1 F 09/06/23 07:55 Pulse 89 09/06/23 07:55 Resp 18 09/06/23 07:55 BP 106/54 L 09/06/23 07:55 Pulse Ox 95 09/06/23 07:55 O2 Del Method Room Air 09/06/23 07:55 Pertinent Lab Results Pertinent Lab Results: Laboratory Tests 09/05/23 09/06/23 17:33 07:46 WBC 5.9 7.4 RBC 2.53 L D 2.37 L Hgb 8.4 L D 7.6 L Hct 26.0 L D 23.8 L MCV 102.8 H D 100.4 H MCH 33.2 H 32.1 MCHC 32.3 31.9 RDW 19.9 H 20.8 H Plt Count 193 181 MPV 10.3 9.9 Immature Gran % (Auto) 0.9 H Neut % (Auto) 61.8 Lymph % (Auto) 22.2 [place] % (Auto) 13.7 H Eos % (Auto) 0.9 Baso % (Auto) 0.5 Lymph # (Auto) 1.3 [place] # (Auto) 0.8 Eos # (Auto) 0.1 Baso # (Auto) 0.0 Abs Immat Gran (auto) 0.05 H Absolute Neuts (auto) 3.6 Absolute Nucleated RBC 0.000 0.000 Nucleated RBC % (auto) 0.0 0.0 Airway Mallampati Class: II TM Dist: >3cm Neck ROM: Full Partial: Upper Loose/Missing/Broken Teeth: Yes (extremely poor dentition, many missing and chipped globally) Heart: irreg irreg s1s2 Lungs: cta b/l Assessment and Plan Assessment Anesthesia Assessment: Anesthesia Plan Discussed and Chart Reviewed Final Anesthetic Review Family History of Problems with Anesthesia: No History of Problems with Anesthesia: No NPO: Yes ASA Class: III and Emergency Final Preanesthetic Review: No Changes in Pt Med Stat, Meds/Allgs Chart Reviewed and Consent Obtained/Reviewed Patient Risk: Intermediate Procedure Risk: Intermediate Assessment/Block/Sedation in SS: Assess/Block/Sedation-SS Anesthetic Plan Anesthetic Plan: MAC: Disposition: Standard PACU
--- NOTE | 2023-09-06 10:06 | MHC.SHP ---
Pre-Procedural Eval Section A - 24 Hr Update-Section A only Date of Service: 09/06/23 The patient is an INPATIENT: Yes Changes since office visit: No Cold of Flu in the past 2 weeks, No New Medical Problems, No Changes in Medication and No Patient answered all questions The patient has been examined within 24 hours of the surgical procedure. The History & Physical has been completed within 30 days and I have reviewed it.: Yes Section B - Complete if H&P > 30 days Chief Complaint: Symptomatic anemia Allergies: Allergies Allergy/AdvReac Type Severity Reaction Status Date / Time hydromorphone [From Dilaudid] AdvReac Confusion Verified 09/05/23 16:34 Plan I have reviewed the history and physical and performed a pertinent physical examination on my patient. No changes have occurred unless specified. Time Spent With Patient Time: Total time managing care of this patient today ____ minutes.
--- NOTE | 2023-09-06 10:32 | PM.EVENT ---
Event Note Date of Service: 09/06/23 Event Note: EGD dictated no bleeding, ulcer or mass. Rec: advance diet d/c when stable my office will arrange outpatient capsule endoscopy Time Spent With Patient Time: Total time managing care of this patient today ____ minutes.
[2023-09-06 10:36] VITALS: BP 126/61; PULSE 94; RESP 16; TEMP 37.1; O2SAT 92
--- NOTE | 2023-09-06 10:55 | OP_ITS ---
DATE OF SERVICE: 09/06/2023 SURGEON: Soren Boothe MD INDICATIONS: Severe anemia. PREOPERATIVE DIAGNOSIS: POSTOPERATIVE DIAGNOSIS: PROCEDURE PERFORMED: Upper endoscopy. ESTIMATED BLOOD LOSS: COMPLICATIONS: ANESTHESIA: Monitored anesthesia care. ASSISTANTS: SPECIMENS: DESCRIPTION OF PROCEDURE: History and physical were performed. The risks and benefits of the procedure were explained to the patient and informed consent was obtained. The patient was placed in the left lateral decubitus position. The Olympus video gastroscope was introduced into the esophagus, stomach, and duodenum. Examination was performed. The scope was removed. He tolerated the procedure well and was returned to recovery room in stable condition. FINDINGS: Esophagus: The esophagus showed an irregular EG junction with a small area suspicious for possible Evans's esophagus without any raised lesions or ulcerated areas. Stomach: Stomach showed no evidence of masses, ulcers, or polyps. Duodenum: The bulb and second portion were normal. IMPRESSION: Basically normal upper gastrointestinal endoscopy with no evidence for active blood loss. RECOMMENDATIONS: 1. Advance diet. 2. Discharge. 3. Follow up hematocrit and consider small bowel capsule endoscopy if there is sign of GI blood loss. MD JACQUELINE Biswas/PADILLA / [id number]
[2023-09-06 10:58] VITALS: BP 119/64; PULSE 87; RESP 17; TEMP 36.7; O2SAT 96
[2023-09-06 11:27] VITALS: BP 128/62; PULSE 90; RESP 18; TEMP 37; O2SAT 93
--- NOTE | 2023-09-06 13:03 | PM.DS ---
DS: Providers Provider Date of Service: 09/06/23 Date of admission: 09/05/23 19:02 Date of discharge: 09/06/23 Primary care physician: Darek Ronquillo MD Consults: 09/05/23 19:48 Consult to Gastroenterology Routine Consulting Provider: Soren Boothe Reason for consultation: Symptomatic anemia 09/05/23 23:43 Consult to Hematology / Oncology Routine Consulting Provider: Andreas Shanks Reason for consultation: Symptomatic anemia, CT of chest concerning for neoplasm 09/06/23 10:33 Consult to Pulmonology Routine Consulting Provider: [facility] [place], [place] Pulmon[facility] Reason for consultation: SPICULATED LUNG MASS Has provider been notified: Yes DS: Diagnosis Discharge Diagnosis (1) Anemia: Status: Acute DS: Summary Hospital Course Hospital Course: 78-year-old male with a PMH significant for?HLD, CAD s/p CABG, HFpEF, chronic AFib on Xarelto, anemia, GERD, hx of nasopharyngeal carcinoma, and orthostatic hypotension who presents to the ED with?from Oncology office visit where he follows with Dr. Shanks for anemia. Routine labs found him to have low H&H of 5.8/19.3. He was transfused two units PRBCs at the oncology office and sent to the ED for further workup and evaluation. Patient states that he has been feeling tired, weak, and occasionally dizzy with SOB for the past 1-1/2 weeks. Denies hematochezia, melena. Has been on iron supplementation for many years with chronically black stool; denies noticing any recent change to his stool. No hematemesis, hemoptysis. Patient states that he has developed a relatively new nonproductive cough for the past month or so. Denies fever, chills, nausea, vomiting, abdominal pain. No chest pain/pressure, palpitations. In the ED pt had elevated heart rate up to 96 and soft BP as low as 126/58. Labs were significant for H&H of 5.8/19.3 (down from 11.1/35.7 on 07/30), iron to 61 with% saturation 63, albumin 3.2, and protein 5.7. No significant electrolyte abnormalities. Hepatic and renal function WNL. Patient declined occult stool testing. CXR showed irregular opacity in right apex, malignancy not excluded. CT of chest and abdomen and pelvis w/contrast pending. Pt was transfused 2 units PRBCs prior to arrival at ED. Pt will be admitted to the hospital for treatment further workup of symptomatic anemia. Hospital Course Patient admitted to hospital where hemoglobin remained stable. On 09/06/2023 underwent EGD which was unremarkable. CT scan of chest demonstrated spiculated soft tissue density right lung apex which are significantly increased when compared to the PET-CT of 05/17/2020. Discussed with patient's; has a follow-up with PCP approximately 1 week and can review plan at this time. Time of discharge patient feels well and is anxious to be discharged home. He is medically acceptable for same and will follow-up as scheduled Time Attestation Discharge coordination time: Greater than 30 minutes Quality: Safe Use of Opioids Does Pt have an Active Cancer Diagnosis on the Problem List?: No Quality: Stroke Does the patient have a stroke diagnosis?: No Physical Exam Vital Signs: Vital Signs: Last Vital Signs Temp 98.6 F 09/06/23 11:27 Pulse 90 09/06/23 11:27 Resp 18 09/06/23 11:27 BP 128/62 09/06/23 11:27 Pulse Ox 93 09/06/23 11:27 O2 Del Method Room Air 09/06/23 11:27 O2 Flow Rate 2 09/06/23 10:36 BMI result Body Mass Index 26.3 Const: Other: Awake alert no acute distress Resp: Other: Essentially clear to auscultation save scant rhonchi upper lobes. No rales rhonchi or wheezes Cardio: Other: No S4; positive S1-S2; no S3 murmurs rubs or gallops GI: Other: Soft nontender nondistended normoactive bowel sounds Extrem: Other: No edema bilaterally DS: Data Data Completed and Pending Completed studies during hospitalization [Text1]: Procedures Excision of Stomach, Pylorus, Via Natural or Artificial Opening Endoscopic, Diagnostic (01/17/22) Transfusion of Nonautologous Red Blood Cells into Peripheral Vein, Percutaneous Approach (01/17/22) Labs on day of discharge: Laboratory Results - last 24 hr 09/05/23 09/06/23 17:33 07:46 WBC 5.9 7.4 RBC 2.53 L D 2.37 L Hgb 8.4 L D 7.6 L Hct 26.0 L D 23.8 L MCV 102.8 H D 100.4 H MCH 33.2 H 32.1 MCHC 32.3 31.9 RDW 19.9 H 20.8 H Plt Count 193 181 MPV 10.3 9.9 Immature Gran % (Auto) 0.9 H Neut % (Auto) 61.8 Lymph % (Auto) 22.2 Ashley % (Auto) 13.7 H Eos % (Auto) 0.9 Baso % (Auto) 0.5 Lymph # (Auto) 1.3 Ashley # (Auto) 0.8 Eos # (Auto) 0.1 Baso # (Auto) 0.0 Abs Immat Gran (auto) 0.05 H Absolute Neuts (auto) 3.6 Absolute Nucleated RBC 0.000 0.000 Nucleated RBC % (auto) 0.0 0.0 Discharge Plan Discharge Anticipated Discharge Date/Time: 09/06/23 13:01 Patient Disposition: Home, Self-Care Discharge Diagnosis: Symptomatic anemia Referrals: Darek Ronquillo MD [Primary Care Provider] - 1 Week Discharge Medications: Continued midodrine 2.5 mg tablet 2.5 mg PO TID Qty: 270 3RF fenofibrate nanocrystallized 145 mg tablet 145 mg PO DAILY@0700 atorvastatin 40 mg tablet 40 mg PO DAILY@1700 bumetanide 2 mg tablet 2 mg PO BID@0700,1700 ferrous sulfate 325 mg (65 mg iron) tablet 325 mg PO BID@0700,1700 omeprazole 20 mg capsule,delayed release(DR/EC) 20 mg PO DAILY digoxin [Digox] 125 mcg (0.125 mg) tablet 125 mcg PO SUMOTUTHFR metoprolol succinate 25 mg tablet extended release 24 hr 25 mg PO QPM@1700 Xarelto 20 mg tablet 20 mg PO DAILY@1700 potassium chloride 20 mEq tablet extended release 20 meq PO DAILY@0700 cholecalciferol (vitamin D3) 10 mcg (400 unit) Tablet 10 mcg PO DAILY@0700 PreserVision AREDS-2 250-90-40-1 mg Capsule 1 tab PO BID@1200,1700 dutasteride [Avodart] 0.5 mg capsule 0.5 mg PO DAILY@1700 Discharge Orders: Discharge Order (Routine); Ordered 09/06/23 Ordered By: Van Jorgensen Diet: Advance to usual diet Activity on Discharge: As tolerated Stand Alone Forms: Patient Portal Discharge page Care Plan Goals: Resume all pre-hospital medications Health Concerns: Follow-up with Dr. Ronquillo as scheduled Plan of Treatment: Resume your regular diet Assessment: See discharge summary
--- NOTE | 2023-09-06 13:30 | P.CONPL_ITS ---
History of Present Illness History of Present Illness Consult date: 09/06/23 Requesting physician: Andreas Shanks Chief complaint: Abnormal CT chest Narrative: 78-year-old gentleman, former 60+ pack-year smoker, quit 20 years prior with underlying history of CAD status post CABG, diastolic congestive heart failure, AFib on Xarelto, anemia, GERD admitted on 09/05/2023 with subacute anemia. As a part of his workup patient had CT chest demonstrated significant emphysema, increasing right upper lobe mass, and mediastinal lymph nodes as compared to CT chest/PET-CT from 2019. Patient denies any pulmonary related concerns or complaints. Review of Systems 2 Constitutional: Constitutional: Denies daytime sleepiness, Denies excessive sweating, Denies fatigue, Denies fever(s), Denies lethargy, Denies malaise, Denies night sweats, Denies snoring and Denies weight loss Eyes: Eyes: Denies blurry vision and Denies itchy eyes ENT: Denies nasal congestion, Denies post nasal drip, Denies sinus pain, Denies sinus pressure and Denies other ( Thrush) Cardiovascular: Cardiovascular: Denies chest pain, Denies pedal edema, Denies dyspnea, Denies orthopnea and Denies paroxysmal nocturnal dyspnea Respiratory: Respiratory: Denies cough, Denies hemoptysis, Denies excessive phlegm production, Denies dyspnea, Denies snoring and Denies wheezing Gastrointestinal: Gastrointestinal: Denies abdominal pain and Denies heartburn Musculoskeletal: Musculoskeletal: Denies myalgias, Denies arthralgias and Denies joint swelling Integumentary/Breasts: Skin/Breast: Denies rash Neurologic: Denies memory loss and Denies seizure-like activity Psychiatric: Psychiatric: Denies abnormal sleep pattern, Denies anxiety and Denies memory loss Endocrine: Endocrine: Denies excessive sweating, Denies fatigue and Denies heat intolerance Hematologic/Lymphatic: Hematologic/Lymphatic: Denies easy bruising Allergic/Immunologic: Allergic/Immunologic: Denies itchy eyes, Denies seasonal rhinorrhea and Denies wheezing PMFSH Past Medical History Medical History Acute congestive heart failure Acute upper gastrointestinal bleeding Acute blood loss anemia COPD (chronic obstructive pulmonary disease) Hyperlipidemia Afib Nasal sinus tumor CAD (coronary artery disease) Surgical History Surgical History Hx of CABG Social History Social History Household Members: Spouse Housing: House Do you presently have visiting nurse or other home services: No Alcohol intake: current Alcohol intake frequency: holidays/special occasions only Alcohol type: beer Patient Tobacco Use Status: Former Tobacco user Tobacco use type: Cigar Smoked in Last 30 Days: Yes Use of substances other than those prescribed or required for medical reasons: No Currently Displaying Signs/Symptoms of Drug Intoxication Withdrawal: No Have you been hit, kicked, punched, or otherwise hurt by someone within the past year? If so, by whom?: No Do you feel safe in your current relationship?: Yes Is there a partner from a previous relationship who is making you feel unsafe now?: No Are you made to feel afraid or neglected: No Are you DNR?: No Advance Directives: Yes Advance Directives on File: Yes Advance Directives Date on File: 02/16/22 Do you have thoughts of harming others: None Do you have a plan to hurt others: No Plan Recently lost weight without trying: No Nutrition Risks: No Nutritional Risk service: Yes Current occupational status: retired Meds Allergies Allergy/AdvReac Type Severity Reaction Status Date / Time hydromorphone [From Dilaudid] AdvReac Confusion Verified 09/05/23 16:34 Active Medications: Current Medications Acetaminophen (Acetaminophen 325 Mg Tablet) 650 mg PO Q6H PRN PRN Reason: Pain, Mild (Pain Scale 1-3) Albuterol/Ipratropium (Albuterol/Iprat 2.5/0.5mg 3 Ml Ampul.Neb) 3 ml INHALE RQ4H WHILE AWAKE [facility] Last Admin: 09/06/23 11:25 Dose: Not Given Atorvastatin Calcium (Atorvastatin Calcium 40 Mg Tablet) 40 mg PO DAILY@1700 [facility] Last Admin: 09/05/23 19:34 Dose: 40 mg Bumetanide (Bumetanide 1 Mg Tablet) 2 mg PO BID@0700,1700 [facility]; Protocol Last Admin: 09/06/23 08:31 Dose: Not Given Digoxin (Digoxin 0.125 Mg Tablet) 0.125 mg PO SuMoTuThFr@0800 [facility] Last Admin: 09/06/23 08:31 Dose: 0.125 mg Docusate Sodium (Docusate Sodium 100 Mg Capsule) 100 mg PO DAILY PRN PRN Reason: Constipation Fenofibrate (Fenofibrate 160 Mg Tablet) 160 mg PO DAILY@0700 [facility] Last Admin: 09/06/23 08:31 Dose: Not Given Ferrous Sulfate (Ferrous Sulfate 324 Mg Tablet.Dr) 324 mg PO BID@0700,1700 [facility] Last Admin: 09/06/23 08:31 Dose: Not Given Guaifenesin/Dextromethorphan (Guaifenesin Dm 200/20/10 Ml 10 Ml Syrup) 10 ml PO Q4H PRN PRN Reason: Cough Melatonin (Melatonin 3 Mg Tablet) 6 mg PO BEDTIME PRN PRN Reason: Insomnia Metoprolol Succinate (Metoprolol Succinate Er 25 Mg Tab.Er.24h) 25 mg PO DAILY@1700 [facility]; Protocol Midodrine (Midodrine Hcl 2.5 Mg Tablet) 2.5 mg PO TID@0700,1200,1700 [facility] Last Admin: 09/06/23 12:54 Dose: 2.5 mg Ondansetron HCl (Ondansetron Hcl 4 Mg/2 Ml Vial) 4 mg IVPUSH Q8H PRN PRN Reason: Nausea and Vomiting Ondansetron HCl (Ondansetron Hcl 4 Mg/2 Ml Vial) 4 mg IVPUSH ONCE PRN PRN Reason: Nausea and Vomiting Pantoprazole Sodium (Pantoprazole Sodium 40 Mg/10 Ml Vial) 40 mg IVPUSH BID@0630,1630 [facility] Last Admin: 09/06/23 06:26 Dose: 40 mg Potassium Chloride (Potassium Chloride Er 20 Meq Tab.Er.Prt) 20 meq PO DAILY@0700 [facility] Last Admin: 09/06/23 08:31 Dose: Not Given Sodium Chloride (0.9 % Sodium Chloride Flush 3 Ml Syringe) 3 ml IVFLUSH QSHIFT [facility] Last Admin: 09/06/23 08:31 Dose: 3 ml Vitamin D (Cholecalciferol (Vitamin D3) 10 Mcg Tablet) 10 mcg PO DAILY@0700 [facility] Last Admin: 09/06/23 08:31 Dose: Not Given Home Medications Medication Instructions Recorded Confirmed Last Taken Type atorvastatin 40 mg tablet 40 mg PO DAILY@1700 03/19/22 09/05/23 09/04/23 History fenofibrate nanocrystallized 145 145 mg PO DAILY@0700 03/19/22 09/05/23 09/05/23 History mg tablet dutasteride 0.5 mg capsule 0.5 mg PO DAILY@1700 08/06/22 09/05/23 09/04/23 History (Avodart) bumetanide 2 mg tablet 2 mg PO BID@0700,1700 09/05/23 09/05/23 09/05/23 History cholecalciferol (vitamin D3) 10 10 mcg PO DAILY@0700 09/05/23 09/05/23 09/05/23 History mcg (400 unit) tablet digoxin 125 mcg (0.125 mg) tablet 125 mcg PO SUMOTUTHFR 09/05/23 09/05/23 09/05/23 History (Digox) ferrous sulfate 325 mg (65 mg 325 mg PO BID@0700,1700 09/05/23 09/05/23 09/05/23 History iron) tablet metoprolol succinate 25 mg 25 mg PO QPM@17009/05/23 09/05/23 09/04/23 History tablet,extended release 24 hr omeprazole 20 mg capsule,delayed 20 mg PO DAILY 09/05/23 09/05/23 09/05/23 History release potassium chloride 20 mEq 20 meq PO DAILY@0709/05/23 09/05/23 09/05/23 History tablet,extended release rivaroxaban 20 mg tablet (Xarelto) 20 mg PO DAILY@1700 09/05/23 09/05/23 09/04/23 History vit C 250 mg-vit E 90 mg-zinc 40 1 tab PO BID@1200,17009/05/23 09/05/23 09/04/23 History mg-copper 1 [id number] capsule (PreserVision AREDS-2) Physical Exam 2 Vital Signs: Vital Signs: Last Vital Signs Temp 98.6 F 09/06/23 11:27 Pulse 90 09/06/23 11:27 Resp 18 09/06/23 11:27 BP 128/62 09/06/23 11:27 Pulse Ox 93 09/06/23 11:27 O2 Del Method Room Air 09/06/23 11:27 O2 Flow Rate 2 09/06/23 10:36 BMI result Body Mass Index 26.3 Const: General: no acute distress and alert Nutritional Appearance: not obese Orientation/consciousness: Other orientation findings ( oriented) HEENT: Head: Yes atraumatic Eyes: General: appearance normal, both eyes and all related structures S clerae: sclerae normal EOM: EOMs intact bilaterally Neck: Neck: Yes supple Lymphatic: no lymphadenopathy noted Resp: Effort & Inspection: normal respiratory effort and no use of accessory muscles Auscultation: clear to auscultation bilaterally Cardio: Rate: regular rate Rhythm: regular rhythm Heart sounds: no gallops, no murmurs and no rubs Skin: General skin exam: other ( warm) Extrem: General: No clubbing, No cyanosis and No edema Results Laboratory Findings 09/06/23 07:46 Abnormal lab findings: Abnormal Labs 09/05/23 09/06/23 17:33 07:46 RBC 2.53 L D 2.37 L Hgb 8.4 L D 7.6 L Hct 26.0 L D 23.8 L MCV 102.8 H D 100.4 H MCH 33.2 H RDW 19.9 H 20.8 H Immature Gran % (Auto) 0.9 H Sebastian % (Auto) 13.7 H Abs Immat Gran (auto) 0.05 H Assessment and Plan (1) Abnormal CT scan, chest: Status: Acute (2) Pulmonary emphysema: Status: Acute Plan Impression: 78-year-old gentleman with incidental finding of emphysema, increasing right upper lobe mass, and mediastinal lymph nodes as compared to 2020 imaging with no pulmonary concerns otherwise. Recommendations: Patient would benefit from outpatient PET-CT with results sent to myself and Dr. Allen, and also outpatient pulmonary follow-up for pulmonary function testing. Procedures Date of Service Date of Service: 09/06/23
--- NOTE | 2023-09-06 13:33 | MHC.CM.PN ---
IMM DELIVERED PT LIVES [facility] SPOUSE, INDEPENDENT AT BASELINE. + HCP PCP DR. ANDERSON DP: PT HAS BEEN MEDICALLY CLEARED FOR DC HOME, NO SERVICES. WILL TRANSPORT
== END 2023-09-06 14:04 | disposition home or self-care (01) | DRG 812 ==
LOC: HO.ED 17:02 → HO.EDOVER 19:30 → HO.S3 19:51
PROVIDERS: Internal Medicine Gastroenterology; Nurse Practitioner Family; Admitting Provider Student in an Organized Health Care Education/Training Program; Emergency Provider Emergency Medicine Emergency Medical Services; PCP Internal Medicine; Visit Provider Hospitalist
PROC: 0DJ08ZZ Inspection of Upper Intestinal Tract, Via Natural or Artificial Opening Endoscopic (ICD-10-PCS; CPT 43235; principal; 2023-09-06 12:30)
DX: D64.9 Anemia, unspecified (principal); I48.20 Chronic atrial fibrillation, unspecified; I50.22 Chronic systolic (congestive) heart failure; I25.10 Atherosclerotic heart disease of native coronary artery without angina pectoris; J43.9 Emphysema, unspecified; Z95.1 Presence of aortocoronary bypass graft; Z87.891 Personal history of nicotine dependence; Z79.01 Long term (current) use of anticoagulants; Z79.899 Other long term (current) drug therapy
CPT/HCPCS: 36415; 71046; 71260; 74177; 85025; 85027; 94640; 99285; C9113; J1596; J2704; Q9967

== ENCOUNTER → 2023-09-05 19:02 | Outpatient (BNV) | payer MEDICARE, SELFPAY | PROVIDERS: Admitting Provider Student in an Organized Health Care Education/Training Program; Emergency Provider Emergency Medicine Emergency Medical Services; PCP Internal Medicine; Visit Provider Hospitalist | DX: D64.9 Anemia, unspecified (principal) | CPT/HCPCS: 99223; 99238; 99499 ==

== ENCOUNTER → 2023-09-05 19:02 | Outpatient (BNV) | payer MEDICARE, SELFPAY | PROVIDERS: Admitting Provider Student in an Organized Health Care Education/Training Program; Emergency Provider Emergency Medicine Emergency Medical Services; PCP Internal Medicine; Visit Provider Internal Medicine Pulmonary Disease | DX: R93.89 Abnormal findings on diagnostic imaging of other specified body structures (principal); J43.9 Emphysema, unspecified | CPT/HCPCS: 99222 ==

== ENCOUNTER → 2023-09-09 10:44 | Outpatient (REF) | payer MEDICARE, SELFPAY ==
--- NOTE | 2023-09-09 10:46 | CA_ITS ---
Transthoracic Echocardiogram Patient (Last, First, Middle): Hector Diaz, Gender: Male Date of : 1945 Age: 78 Procedure Date: 09/09/2023 Procedure Type: Transthoracic Echocardiogram Location: OP Height: 180.34 cm Weight: 83.92 kg BSA: 2.04 m2 Heart Rate: 77 bpm BP: 128 / 62 mmHg Meat Clerk: LEONARDA Referring MD: Rudi Mccoy MD Symptoms: I50.30 - Unspecified diastolic (congestive) heart failure Study Quality: Adequate ECG Rhythm: Atrial Fibrillation Conclusions: - The left ventricular systolic function is mildly decreased. The visually estimated ejection fraction is between 45-50%. - The apex segment is akinetic. - The left atrium is severely dilated. - There is moderate mitral annular calcification. - There is mild dilatation of the sinuses of Valsalva measuring 4.40 cm and mild dilatation of the ascending aorta measuring 4.50 cm. Findings Procedure Information Contrast agent, definity, is being given per protocol without apparent complications. Left Ventricle Normal left ventricular cavity size. The left ventricular systolic function is mildly decreased. The visually estimated ejection fraction is between 45 50%. Diastolic function is indeterminate on the basis of available data. There is moderate septal asymmetric hypertrophy. Wall Motion Rest Echo Findings The apex segment is akinetic. Right Ventricle Mildly increased right ventricular cavity size. There is moderately decreased right ventricular systolic function. Atria The left atrium is severely dilated. The right atrium is moderately dilated. Aortic Valve There is a normal trileaflet aortic valve. There is mild calcification of the aortic valve. There is no aortic valve stenosis. There is trace (trivial) aortic valve regurgitation. Mitral Valve There is moderate mitral annular calcification. There is trace mitral valve regurgitation. There is no mitral valve stenosis. Pulmonic Valve There is mild pulmonic valve regurgitation. Tricuspid Valve Normal tricuspid valve structure. There is mild tricuspid valve regurgitation. Moderate pulmonary hypertension is present. Great Vessels There is mild dilatation of the sinuses of Valsalva measuring 4.40 cm and mild dilatation of the ascending aorta measuring 4.50 cm. Small plaque is seen in the sino tubular ridge. Venous The inferior vena cava is dilated and collapses less than 50% with inspiration. Pericardium/Pleural There is no evidence of pericardial effusion. Prior Study Comparison No significant change compared to prior study dated: 02/06/2022. Wall motion finding seen in prior images. Measurements 2D Linear Measurements IVSd: 1.39 0.6-0.9/0.6-1.0 cm LVIDd: 5.65 3.9-5.3/4.2-5.9 cm LVIDd Index: 2.77 2.4-3.2/2.2-3.1 cm/m2 LVIDs: 3.54 2.0-3.6 cm LVPWd: 0.98 0.7-1.1 cm LA Diam: 5.40 2.7-3.8/3.0-4.0 cm LAIDs Index: 2.65 1.5-2.3 cm/m2 LV Mass: 349.31 67-162/88-224 g LV Mass Index: 171.23 43-95/49-115 g/m2 LVOT Diam: 2.20 3.0+(-)1.3 cm 2D Systolic Function EF 4C: 45.30 >55% EF 2C: 26.70 >55% EF BiP: 36.90 >55% Mitral Valve MV Pk E: 1.62 MV Decel Time: 196.00 E'Lateral: 6.27 E'Medial: 4.47 E/E' Med: 36.20 E/E' Lat: 25.80 Aortic Valve AoV Pk Leonel: 1.38 AoV Pk Grad: 8.00 THUAN: 2.54 LVOT LVOT Pk Leonel: 0.92 LVOT Mn Leonel: 0.59 LVOT VTI: 0.17 LVOT Pk Grad: 3.00 LVOT Mn Grad: 2.00 LVOT Diam: 2.20 LVOT Area: 3.80 Diastolic Function MV Pk E: 1.62 E'Medial: 4.47 E/E' Med: 36.20 E' Laterial: 6.27 E/E' Lat: 25.80 Right Ventricle TAPSE (mm): 11.80 TVS' Leonel: 8.70 Tricuspid Valve TR Pk Leonel: 3.42 TR Pk Grad: 47.00 RA Press: 15.00 RVSP: 62.00 Great Vessels Aorta Sinus of Valsalva: 4.40 2.0-3.5 cm Ao Asc: 4.50 2.1-3.4 cm Pulmonary Valve PV Pk Leonel: 1.09 Peak PV Grad: 5.00 Updated in Other Vendor System with Status of Final Silver Schmid MD electronically signed on 09/10/2023 6:58:29 AM with status of Final
== END ==
LOC: HO.CARD 10:44
PROVIDERS: PCP Internal Medicine; Visit Provider Internal Medicine Cardiovascular Disease
DX: I50.30 Unspecified diastolic (congestive) heart failure (principal)
CPT/HCPCS: 93306; Q9957

== ENCOUNTER → 2023-09-09 10:46 | Outpatient (BNV) | payer MEDICARE, SELFPAY | PROVIDERS: PCP Internal Medicine; Visit Provider Internal Medicine | DX: I34.81 Nonrheumatic mitral (valve) annulus calcification (principal); I48.20 Chronic atrial fibrillation, unspecified | CPT/HCPCS: 93306 ==

== ENCOUNTER 2023-09-24 10:56 | Outpatient (AMB) | payer MEDICARE, SELFPAY ==
--- NOTE | 2023-09-24 11:14 | A.OFFVIS_ITS ---
Intake Vital Signs 09/24/23 11:16 Height 5 ft 11 in Weight 187 lb 6.287 oz BMI 26.1 BP 108/62 Blood Pressure Location Lt brachial Position Sitting Pulse 86 Intake Visit Reasons: 6 mth f/up Intake Note: 6 month follow-up feeling good Window [employer] Siding [employer] Required: No Allergies hydromorphone [From Dilaudid] Adverse Reaction (Verified 09/05/23 16:34) Confusion Medication List - Last Reconciled 09/24/23 by Rudi Mccoy MD atorvastatin 40 mg PO DAILY@1700 bumetanide 2 mg PO BID@0700,1700 cholecalciferol (vitamin D3) 10 mcg PO DAILY@0700 digoxin 125 mcg PO DAILY dutasteride (Avodart) 0.5 mg PO DAILY@1700 fenofibrate nanocrystallized 145 mg PO DAILY@0700 ferrous sulfate 325 mg PO BID@0700,1700 metoprolol succinate ER 25 mg PO QPM@1700 midodrine 2.5 mg PO TID omeprazole 20 mg PO DAILY potassium chloride ER 20 mEq PO DAILY rivaroxaban (Xarelto) 20 mg PO DAILY@1700 vit C,Z-Fd-hrnkc-lutein-zeaxan 250-90-40-1 mg (PreserVision AREDS-2) 1 tab PO BID@1200,1700 HPI HPI Comments History of Present Illness Details Hector comes for follow-up. He was recently discharged from the hospital about 2 and half weeks ago with significant anemia suspect to be GI blood loss. Underwent upper endoscopy which was negative. He was also noted to have lung mass. He is scheduled to see Hematology today and also scheduled to see thoracic surgery. Cause for anemia is not exactly known but appears to be blood loss related anemia. He was restarted on Xarelto on discharge. He denies any heart failure symptoms. Denies any lightheadedness, syncope. He denies any orthopnea, PND. He has not very excited to pursue any further workup for the lung mass. 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 This was subsequently treated. Currently no palpitations. No syncopal episodes. FORMERLY [facility] Medical History Anemia Acute congestive heart failure Acute upper gastrointestinal bleeding Acute blood loss anemia COPD (chronic obstructive pulmonary disease) Hyperlipidemia Afib Nasal sinus tumor CAD (coronary artery disease) Surgical History Hx of CABG Social History Household Members: Spouse Housing: House Do you presently have visiting nurse or other home services: No Alcohol intake: current Alcohol intake frequency: holidays/special occasions only Alcohol type: beer Patient Tobacco Use Status: Former Tobacco user Tobacco use type: Cigar Advance Directives Date on File: 02/16/22 service: No Current occupational status: retired Review of Systems Const Denies chills, Denies fatigue, Denies fever(s), Denies frequent falls, Denies weakness, Denies weight gain and Denies weight loss ENT Denies dizziness Card Denies chest pain, Denies leg edema, Denies lightheadedness, Denies palpitations, Denies dyspnea, Denies dyspnea on exertion, Denies orthopnea and Denies other (loss of consciousness) Resp Denies cough, Denies dyspnea and Denies dyspnea on exertion GI Denies hematochezia and Denies change in stool character Musc Denies abnormal gait, Denies muscle weakness, Denies numbness, Denies radiating pain into limb and Denies tingling Neuro Denies abnormal gait, Denies dizziness, Denies frequent falls, Denies numbness, Denies tingling and Denies weakness Endo Denies fatigue and Denies palpitations Physical Exam Vital Signs: Last Vital Signs Pulse 86 09/24/23 11:16 BP 108/62 09/24/23 11:16 BMI result Body Mass Index 26.1 Const General: cooperative, comfortable, no acute distress, alert, awake and tired appearing Nutritional Appearance: well nourished and other (Frail) Orientation/consciousness: patient oriented x3 Limitations: no limitations Neck Neck: Yes trachea midline, Yes supple and Yes no JVD Chest Chest palpation & inspection: normal inspection of the chest Resp Effort & Inspection: normal respiratory effort Auscultation: wheezes expiratory wheezes and lower bilaterally Cardio Jugular venous distension: no JVD Rate: regular rate Rhythm: abnormal rhythm irregularly irregular Heart sounds: S1 normal heart sound present, S2 normal heart sound present, no click, no gallops and no murmurs GI Auscultation: normal bowel sounds Skin General skin exam: no rashes or lesions noted and ecchymosis Neuro General: patient oriented x3 and no focal motor deficits Extrem General: No clubbing, No cyanosis and Yes edema (Right 2 to 3+, greater than left 1+) Assessment & Plan Assessment & Plan (1) (HFpEF) heart failure with preserved ejection fraction: Code(s): I50.30 - Unspecified diastolic (congestive) heart failure Plan: Heart failure preserved ejection fraction, clinically euvolemic and well compensated current diuretic dose. Continue the same. Importance of daily weight monitoring avoidance of salt loading was discussed. Additional diuretic dose was discussed continue aggressive rate control for atrial fibrillation which has helped as well. Management of heart failure was discussed in details. Understands agrees. Need to manage his anemia aggressively as well as this could lead to further cardiac decompensation. He is understanding of it. (2) Chronic atrial fibrillation: Code(s): I48.20 - Chronic atrial fibrillation, unspecified Plan: Chronic rate control atrial fibrillation given chronicity will continue pursue rate control approach. Currently on digoxin and metoprolol therapy. Can not maximize metoprolol therapy due to orthostatic hypertension low blood pressure. Continue monitor digoxin every 6 months. Currently on full oral anticoagulation Xarelto although recent hospitalization severe anemia has very concerning. His upper endoscopy was negative. Still thinks that this might be due to GI blood loss. Is seeing Hematology today will await further input. We discussed about alternative such as Watchman device. He has not very excited about it but will consider it. Did provide him with literature. (3) CAD (coronary artery disease): Code(s): I25.10 - Atherosclerotic heart disease of [place] coronary artery without angina pectoris Plan: CAD with remote coronary artery bypass grafting. Currently on full oral anticoagulation with Xarelto and would therefore avoid aspirin therapy to reduce further bleeding risk. Continue aggressive risk factor modification. Currently on high-intensity statin therapy. Target goal LDL less than 70 mg/dL. Currently not having any symptoms suggestive angina. (4) Low blood pressure: Code(s): I95.9 - Hypotension, unspecified Plan: Prior history of low blood pressure currently requiring midodrine therapy. Has done very well with midodrine therapy with no episodes of syncope or lightheadedness and able to tolerate metoprolol therapy. Continue to participate in orthostatic precautions. Advised to maintain adequate hydration without much salt. Follow up in the clinic in 6 months time, sooner p.r.n.. Thank you for allowing me to partake in his care Coding Level of Care Code Est Pt Level 4 (59824) Diagnoses (HFpEF) heart failure with preserved ejection fraction I50.30 Chronic atrial fibrillation I48.20 CAD (coronary artery disease) I25.10 Low blood pressure I95.9
[2023-09-24 11:16] VITALS: BP 108/62; PULSE 86; BMI 26.1
== END 2023-09-24 11:37 | disposition home or self-care (01) ==
PROVIDERS: PCP Internal Medicine; Visit Provider Internal Medicine Cardiovascular Disease
DX: I50.30 Unspecified diastolic (congestive) heart failure (principal); I48.20 Chronic atrial fibrillation, unspecified; I25.10 Atherosclerotic heart disease of native coronary artery without angina pectoris; I95.9 Hypotension, unspecified
CPT/HCPCS: 99214

== ENCOUNTER → 2023-09-24 10:56 | Outpatient (BNVA) | payer MEDICARE, SELFPAY | PROVIDERS: PCP Internal Medicine; Visit Provider Internal Medicine Cardiovascular Disease | DX: I11.0 Hypertensive heart disease with heart failure (principal); D64.9 Anemia, unspecified; I50.30 Unspecified diastolic (congestive) heart failure; I48.20 Chronic atrial fibrillation, unspecified; I25.10 Atherosclerotic heart disease of native coronary artery without angina pectoris; I95.9 Hypotension, unspecified; Z95.1 Presence of aortocoronary bypass graft | CPT/HCPCS: 99212 ==

== ENCOUNTER → 2023-11-06 09:11 | Outpatient (REF) | payer MEDICARE, SELFPAY ==
--- NOTE | ~2023-11-06 | NM_ITS ---
Myocardial perfusion study Indication: Preoperative cardiovascular risk stratification Technique: The patient was brought in for a Lexiscan perfusion study on 11/06/2023. Patient performed low-level exercise and was injected 0.4 mg of Lexiscan intravenously. Within a minute of injection, 30 mCi of sestamibi was given intravenously. Images were obtained using the SPECT gamma camera interlaced with the gating device. Images were obtained in supine position. Resting perfusion study was performed on 11/07/2023. Patient was administered 30 mCi of sestamibi intravenously at rest. Images were then obtained in supine position. Images obtained with and without CT attenuation. Total DLP 91 mGy-cm. Images were processed with the software and compared side to side in short axis, horizontal long axis and vertical long axis views. Findings: The stress perfusion study showed both attenuated as well as non attenuated corrected images show moderate size absent uptake in the apex and adjacent area and mildly to moderately uptake in the distal anterior wall of the LV myocardium.. The gated study shows normal LV systolic function with calculated LVEF of 57%. LV cavity is mildly to moderately dilated size. The gated study shows absent wall thickening and contraction of apical segments. Resting study shows no change in perfusion pattern compared to stress perfusion study. Gating at rest reveals apical wall motion abnormality with ejection fraction at 55%. The findings are consistent with no evidence of reversible ischemia transmural infarct of the apex and nontransmural infarct of the distal anterior wall. NM/NM cardiolite stress test Impression: 1. Myocardial perfusion imaging study shows no reversible ischemia with transmural infarct of the apex with nontransmural infarct in the adjacent anterior and apical wall in LAD territory 2. Gated LVEF is 57% 3. Transient ischemic dilatation not present but LV cavity is dilated EKG is nondiagnostic for ischemia
--- NOTE | 2023-11-06 09:15 | CA_ITS ---
Acquisition Time: 2023-11-06 09:52:28 Total Exercise Time: 00:02:00 Test Indications: AFIB, PREOP Medications: SEE H Protocol: LEXISCAN Max HR: 086 BPM 60% of Pred: 142 BPM Max BP: 118/064 mmHG Max Work Load: 1.0 METS Pharmacologlcal stresst test with Lexiscan injection while sitting and slowly kicking his legs due to dipping into 50s bpm for heart rate, without anginal symptoms, with isolated PVCs, with normotensive response to injection, with nondiagnoisitic EKGs. Aminophylline 75mg IVP given to reverse Lexiscan. Nuclear images pending. Test reviewed with Dr. Schmid. Referred By: Rudi Mccoy Overread By: Jazzmine Lewis
[2023-11-06 09:41] LABS: MANUAL DIFF FLAG NO
[2023-11-06 09:44] LABS: Basophils Absolute Auto 0.1 X10*3/uL (0.0-0.2); Basophils Percent Auto 0.9 % (0-2); Eosinophils Absolute Auto 0.1 X10*3/uL (0.0-0.4); Eosinophils Percent Auto 1.4 % (0-4); Hematocrit 31.5 % (42.0-52.0); Hemoglobin 9.9 g/dl (14.0-18.0); Imm Gran Abs Auto 0.02 X10*3/uL (0.00-0.03); Imm Gran Pct Auto 0.4 % (0.0-0.4); Lymphocytes Absolute Auto 1.3 X10*3/uL (1.2-4.9); Lymphocytes Percent Auto 23.3 % (20-40); Mean Corpuscular HGB Conc 31.4 g/dl (31.0-36.0); Mean Corpuscular Hemoglobin 33.6 pg (27.0-33.0); Mean Corpuscular Volume 106.8 fL (80.0-98.0); Mean Platelet Volume 10.2 fL (9.4-12.4); Monocytes Absolute Auto 0.8 X10*3/uL (0.1-1.2); Monocytes Percent Auto 14.1 % (2-11); Neutrophils Absolute Auto 3.4 x10*3/uL (2.0-8.3); Neutrophils Percent Auto 59.9 % (45-73); Platelet Count 187 X10*3/uL (160-400); Red Blood Count 2.95 X10*6/uL (4.60-5.80); Red Cell Distribution Width 14.7 % (11.0-16.0); White Blood Count 5.6 X10*3/uL (4.8-10.8)
== END ==
LOC: HO.CARD 09:11
PROVIDERS: Nurse Practitioner; PCP Internal Medicine; Visit Provider Internal Medicine Cardiovascular Disease
DX: Z01.818 Encounter for other preprocedural examination (principal); I25.10 Atherosclerotic heart disease of native coronary artery without angina pectoris; I50.30 Unspecified diastolic (congestive) heart failure; I48.20 Chronic atrial fibrillation, unspecified
CPT/HCPCS: 36415; 78452; 85025; 93017; A9500; J0280; J2785

== ENCOUNTER → 2023-11-06 09:15 | Outpatient (BNV) | payer MEDICARE, SELFPAY | PROVIDERS: PCP Internal Medicine; Visit Provider Nurse Practitioner | DX: I49.3 Ventricular premature depolarization (principal); Z01.810 Encounter for preprocedural cardiovascular examination | CPT/HCPCS: 78452; 93016; 93018 ==

== ENCOUNTER 2024-01-16 09:56 | Emergency (ER) | payer MEDICARE, SELFPAY ==
--- NOTE | ~2024-01-16 | CT_ITS ---
EXAMINATION: CT ABDOMEN AND PELVIS WITH CONTRAST CLINICAL INFORMATION: Right lower quadrant mass. COMPARISON: 09/05/2023. TECHNIQUE: Multidetector volumetric images were obtained from the superior aspect of the liver through the pubic symphysis following administration 85 mL of Omnipaque 350 intravenous contrast. Sagittal and coronal reformatted images were obtained on the technologist's workstation. This CT examination was performed using dose optimization techniques as appropriate, variously including the following: *Automated exposure control *Adjustment of mA and/or kV according to patient size (this includes techniques or standardized protocols for targeted exams where dose is matched to indication/reason for exam; i.e. extremities or head) *Use of iterative reconstruction technique DLP: 604 mGy-cm FINDINGS: LUNG BASES: The bronchial garrison are thickened within the visualized bases. There are old subpleural reticular or reticulonodular opacities at posterior lower lobes. No basilar consolidation or pleural effusion. Cardiomegaly. Mitral valve annulus is calcified. Atherosclerotic calcifications of coronary arteries and thoracic aorta. HEPATOBILIARY: Liver is unremarkable. Gallbladder is physiologically distended and has small calculi. No gallbladder wall thickening or pericholecystic fluid. No dilated bile ducts. PANCREAS: No edema, pancreatic ductal dilatation or mass. SPLEEN: Normal. ADRENAL GLANDS: Normal. KIDNEYS AND URETERS: Kidneys are normal in size and enhance symmetrically. Bilateral renal arterial atherosclerotic calcification is noted. No nephrolithiasis or hydronephrosis. A simple cyst of the medial upper pole of the right kidney is 5 cm AP dimension. No renal imaging follow-up is recommended for a simple cyst. The ureters are unremarkable. BLADDER: The urinary bladder wall is chronically mildly thickened and its base compressed by the large prostate gland. BOWEL AND PERITONEUM: No dilated bowel loops. The appendix is normal. There are diverticula of the sigmoid colon without diverticulitis. No abdominal free fluid or free air. ABDOMINAL WALL: There is an old hernia of the right anterior abdominal wall lateral to the right rectus abdominis muscle. The size of the hernia is unchanged compared to 09/05/2023. The small amount of fluid previously seen in the hernia sac has resolved. Currently, omental fat is present within the hernia and the appendix is extending toward the region of the hernia neck (whereas previously the appendix was located in the hernia sac on 09/05/2023). VASCULATURE: There is atherosclerotic calcification of the aorta and branch vessels. The infrarenal abdominal aorta measures up to 2.9 cm maximum diameter (as measured on axial images). Findings include severe atherosclerotic disease and occlusion of bilateral superficial femoral arteries. There is a patent left-sided femoral bypass graft in the anterior proximal thigh. However, the femoral bypass graft of the proximal anterior right thigh is occluded. The hepatic veins and IVC are prominent and this suggests elevated right-sided cardiac pressures. LYMPH NODES: No pathologic sized lymph nodes in the abdomen or pelvis. No inguinal lymphadenopathy. PELVIC VISCERA: Prostatomegaly. Prostate measures approximately 5.7 x 4.2 x 6 cm and median lobe bulges into the bladder base. MUSCULOSKELETAL: No acute findings within the degenerated spine. No aggressive osseous lesions. CT/CT abdomen pelvis w IV con IMPRESSION: * Atherosclerotic disease of coronary arteries and peripheral vessels. There is cardiomegaly. The observation of prominent IVC and hepatic veins can be a manifestation of elevated right-sided cardiac pressures. * Cholelithiasis without cholecystitis. * Chronic right-sided Spigelian hernia which currently contains omental fat. * No abdominal wall mass. * Chronic prostatomegaly and mild thickening of the urinary bladder wall which can represent detrusor muscle hypertrophy. * The [place] superficial femoral arteries are occluded. Within the visualized proximal right thigh, the femoral bypass graft is occluded.
[2024-01-16 10:04] VITALS: BP 123/78; PULSE 75; RESP 16; TEMP 36.8; O2SAT 98; BMI 25.8
[2024-01-16 10:24] LABS: MANUAL DIFF FLAG NO
[2024-01-16 10:26] LABS: Basophils Absolute Auto 0.1 X10*3/uL (0.0-0.2); Basophils Percent Auto 0.9 % (0-2); Eosinophils Absolute Auto 0.1 X10*3/uL (0.0-0.4); Eosinophils Percent Auto 1.5 % (0-4); Hematocrit 31.8 % (42.0-52.0); Hemoglobin 10.5 g/dl (14.0-18.0); Imm Gran Abs Auto 0.02 X10*3/uL (0.00-0.03); Imm Gran Pct Auto 0.4 % (0.0-0.4); Lymphocytes Absolute Auto 1.4 X10*3/uL (1.2-4.9); Lymphocytes Percent Auto 24.9 % (20-40); Mean Corpuscular Hemoglobin 33.9 pg (27.0-33.0); Mean Corpuscular Volume 102.6 fL (80.0-98.0); Monocytes Absolute Auto 0.8 X10*3/uL (0.1-1.2); Monocytes Percent Auto 14.5 % (2-11); Neutrophils Absolute Auto 3.2 x10*3/uL (2.0-8.3); Neutrophils Percent Auto 57.8 % (45-73); Platelet Count 208 X10*3/uL (160-400); Red Cell Distribution Width 16.6 % (11.0-16.0); White Blood Count 5.5 X10*3/uL (4.8-10.8)
[2024-01-16 10:41] LABS: Anion Gap 10 (12-20); Blood Urea Nitrogen 13 mg/dL (9-16); Carbon Dioxide 28 mmol/L (22-29); Chloride 106 mmol/L (96-108); Creatinine Clr Calc Pharmacy 66.8; Estimated Glomerular Filt Rate > 60; Glucose Random 103 mg/dL (60-115); Potassium 4.1 mmol/L (3.3-5.1); Sodium 140 mmol/L (135-145)
[2024-01-16 12:00] VITALS: BP 136/64; PULSE 74; RESP 16; TEMP 36.9; O2SAT 99
--- NOTE | 2024-01-16 12:02 | ED.ABDPAIN ---
HPI - Abdominal Pain General Chief Complaint: Abdominal Pain Stated Complaint: abd pain sent in by pcp Time Seen by Provider: 01/16/24 12:14 Related Data Home Medications ?Medication ?Instructions ?Recorded ?Confirmed atorvastatin 40 mg tablet 40 mg PO DAILY@1700 03/19/22 12/05/23 fenofibrate nanocrystallized 145 145 mg PO DAILY@0700 03/19/22 12/05/23 mg tablet dutasteride 0.5 mg capsule 0.5 mg PO DAILY@1700 08/06/22 12/05/23 (Avodart) bumetanide 2 mg tablet 2 mg PO BID@0700,1700 09/05/23 12/05/23 cholecalciferol (vitamin D3) 10 10 mcg PO DAILY@0700 09/05/23 12/05/23 mcg (400 unit) tablet ferrous sulfate 325 mg (65 mg 325 mg PO BID@0700,1700 09/05/23 12/05/23 iron) tablet metoprolol succinate 25 mg 25 mg PO QPM@169909/05/23 12/05/23 tablet,extended release 24 hr omeprazole 20 mg capsule,delayed 20 mg PO DAILY 09/05/23 12/05/23 release rivaroxaban 20 mg tablet (Xarelto) 20 mg PO DAILY@17009/05/23 12/05/23 vit C 250 mg-vit E 90 mg-zinc 40 1 tab PO BID@1200,169909/05/23 12/05/23 mg-copper 1 bz-zstbev-bazcpq capsule (PreserVision AREDS-2) Previous Rx's ?Medication ?Instructions ?Recorded midodrine 2.5 mg tablet 2.5 mg PO TID #270 tabs 09/05/23 digoxin 125 mcg (0.125 mg) tablet 125 mcg PO DAILY #90 tabs 09/17/23 potassium chloride 20 mEq 20 meq PO DAILY #90 tabs 09/17/23 tablet,extended release Allergies Allergy/AdvReac Type Severity Reaction Status Date / Time hydromorphone [From Dilaudid] AdvReac Confusion Verified 01/16/24 10:07 PMFSH Past Medical History Medical History Anemia Acute congestive heart failure Acute upper gastrointestinal bleeding Acute blood loss anemia COPD (chronic obstructive pulmonary disease) Hyperlipidemia Afib Nasal sinus tumor CAD (coronary artery disease) Surgical History Hx of CABG Social History Social History Household Members: Spouse Housing: House Do you presently have visiting nurse or other home services: No Alcohol intake: current Alcohol intake frequency: holidays/special occasions only Alcohol type: beer Patient Tobacco Use Status: Former Tobacco user Tobacco use type: Cigar Smoked in Last 30 Days: No Use of substances other than those prescribed or required for medical reasons: No Advance Directives: Yes Advance Directives on File: Yes Advance Directives Date on File: 02/16/22 service: No Current occupational status: retired Physical Exam ED Vital Signs: Vital Signs - 24 hr 01/16/24 10:04 01/16/24 12:00 01/16/24 13:59 Temperature 98.3 F 98.4 F 98.1 F Pulse Rate 75 74 57 Respiratory Rate 16 16 16 Blood Pressure 123/78 136/64 123/55 L Pulse Oximetry 98 99 97 Oxygen Delivery Method Room Air Room Air Room Air BMI result Body Mass Index 25.8 Course Course Course Narrative: This is a Rapid Medical Examination (RME) performed by Stephany Field PA-C in triage. Full HPI, ROS, assessment and treatment plan per primary provider in the Main ED. 78 yo male with hx HFpEF, PVD s/p fem-pop bypass (complicated by post-op abscesses requiring wound vac), HTN, gastritis, afib on xarelto, CAD, COPD who presents to the ER for evaluation of RLQ pain for the last 2 days. Pain is intermittent, worse with walking and coughing. no vomiting. moving bowels normally. on exam he has tender mass in the RLQ c/w probable hernia. Plan: labs reassuring. will add LFTs, UA. full abdominal examination and attempt at hernia reduction Reevaluation(s) Reevaluation #1: see Dr. Schaefer's note, he is primary provider for this encounter Medical Decision Making Lab Data 01/16/24 10:19 01/16/24 10:19 Labs: Lab Results 01/16/24 01/16/24 01/16/24 Range/Units 10:19 12:09 12:36 WBC 5.5 (4.8-10.8) X10*3/uL RBC 3.10 L (4.60-5.80) X10*6/uL Hgb 10.5 L (14.0-18.0) g/dl Hct 31.8 L (42.0-52.0) % MCV 102.6 H (80.0-98.0) fL MCH 33.9 H (27.0-33.0) pg MCHC 33.0 (31.0-36.0) g/dl RDW 16.6 H (11.0-16.0) % Plt Count 208 (160-400) X10*3/uL MPV 10.0 (9.4-12.4) fL Immature Gran % (Auto) 0.4 (0.0-0.4) % Neut % (Auto) 57.8 (45-73) % Lymph % (Auto) 24.9 (20-40) % [place] % (Auto) 14.5 H (2-11) % Eos % (Auto) 1.5 (0-4) % Baso % (Auto) 0.9 (0-2) % Lymph # (Auto) 1.4 (1.2-4.9) X10*3/uL [place] # (Auto) 0.8 (0.1-1.2) X10*3/uL Eos # (Auto) 0.1 (0.0-0.4) X10*3/uL Baso # (Auto) 0.1 (0.0-0.2) X10*3/uL Abs Immat Gran (auto) 0.02 (0.00-0.03) X10*3/uL Absolute Neuts (auto) 3.2 (2.0-8.3) x10*3/uL Absolute Nucleated RBC 0.000 (0.0-0.012) X10*3/uL Nucleated RBC % (auto) 0.0 (0.0-0.2) /100WBC Sodium 140 (135-145) mmol/L Potassium 4.1 (3.3-5.1) mmol/L Chloride 106 (96-108) mmol/L Carbon Dioxide 28 (22-29) mmol/L Anion Gap 10 L (12-20) BUN 13 (9-16) mg/dL Creatinine 0.97 (0.5-1.4) mg/dL Estim Creat Clear Calc 66.8 Estimated GFR > 60 Random Glucose 103 (60-115) mg/dL Lactic Acid 0.9 (0.5-2.0) mmol/L Calcium 10.0 (8.4-10.2) mg/dL Total Bilirubin 0.7 (0.0-1.0) mg/dL Direct Bilirubin 0.3 (0.0-0.5) mg/dL AST 25 (5-37) U/L ALT 10 (0-40) U/L Alkaline Phosphatase 46 (39-117) U/L Total Protein 7.0 (6.5-8.0) g/dL Albumin 3.9 (3.5-5.0) g/dL Lipase 67 (8-78) U/L Urine Color Yellow Urine Appearance Clear Urine pH 5.5 (5.0-9.0) Ur Specific [place] 1.015 (1.005-1.025) Urine Protein 30 (1+) H (Neg-Trace) mg/dL Urine Glucose (UA) Negative (Negative) mg/dL Urine Ketones Negative (Negative) mg/dL Urine Blood Trace H (Negative) Urine Nitrite Negative (Negative) Ur Leukocyte Esterase Negative (Negative) Urine RBC 6-10 H (0-2) /HPF Urine WBC 0-5 (0-5) /HPF Ur Squamous Epith Cells 0-2 (0-2) /HPF Urine Bacteria None Seen (None Seen) Hyaline Casts 0-2 (0-2) /LPF Medications Administered Discontinued Medications Generic Name Dose Route Start Last Admin Trade Name Jabier PRN Reason Stop Dose Admin Iohexol 100 ml 01/16/24 13:40 01/16/24 13:40 Iohexol 350 Mg/Ml 100 Ml Infus..Btl IV 01/16/24 13:41 85 ml ONCE ONE Administration Discharge Plan Discharge Clinical Impression: Abdominal pain Patient Disposition: Still a Patient Prescriptions: No Action midodrine 2.5 mg tablet 2.5 mg PO TID Qty: 270 3RF digoxin 125 mcg (0.125 mg) tablet 125 mcg PO DAILY Qty: 90 3RF potassium chloride 20 mEq tablet extended release 20 meq PO DAILY Qty: 90 3RF fenofibrate nanocrystallized 145 mg tablet 145 mg PO DAILY@0700 atorvastatin 40 mg tablet 40 mg PO DAILY@1700 bumetanide 2 mg tablet 2 mg PO BID@0700,1700 ferrous sulfate 325 mg (65 mg iron) tablet 325 mg PO BID@0700,1700 omeprazole 20 mg capsule,delayed release(DR/EC) 20 mg PO DAILY metoprolol succinate 25 mg tablet extended release 24 hr 25 mg PO QPM@1700 Xarelto 20 mg tablet 20 mg PO DAILY@1700 cholecalciferol (vitamin D3) 10 mcg (400 unit) Tablet 10 mcg PO DAILY@0700 PreserVision AREDS-2 250-90-40-1 mg Capsule 1 tab PO BID@1200,1700 dutasteride [Avodart] 0.5 mg capsule 0.5 mg PO DAILY@1700 Print Language: Icelandic
[2024-01-16 12:18] LABS: Appearance Urine Clear; Color Urine Yellow; Glucose Urine UA Negative (Negative); Leukocyte Esterase Urine Negative (Negative); Nitrite Urine Negative (Negative); PH 5.5 (5.0-9.0); Specific Gravity - Urine 1.015 (1.005-1.025); UMIC TRIGGER UACC YES; Urine Blood Trace (Negative); Urine Ketones Negative (Negative); Urine Protein 30 (1+) mg/dL (Neg-Trace)
--- NOTE | 2024-01-16 12:20 | MHC.EDTECH ---
pt in room #16, changed into gown, mentioned hx of a fib- placed pt on monitor, vital signs checked, pt with RN now, call bautista within reach.
[2024-01-16 12:22] LABS: Bacteria Urine None Seen (None Seen); Hyaline Casts Urine 0-2 /LPF (0-2); Squamous Epithelial Cell Urine 0-2 /HPF (0-2); WBC Urine 0-5 /HPF (0-5)
[2024-01-16 12:24] LABS: Alanine Aminotransferase 10 U/L (0-40); Albumin Level 3.9 g/dL (3.5-5.0); Alkaline Phosphatase 46 U/L (39-117); Aspartate Amino Transferase 25 U/L (5-37); Bilirubin Direct 0.3 mg/dL (0.0-0.5); Bilirubin Total 0.7 mg/dL (0.0-1.0); Lipase 67 U/L (8-78)
--- NOTE | 2024-01-16 12:29 | ED.ABDPAIN ---
HPI - Abdominal Pain General Chief Complaint: Abdominal Pain Stated Complaint: abd pain sent in by pcp Time Seen by Provider: 01/16/24 12:14 History of Present Illness HPI narrative: Patient is a 78-year-old male with a history of atrial fibrillation currently on Xarelto. History of fem-pop bypass 2 years ago. Presents today with feeling a lump around the right periumbilical right lower quadrant area. The lump appears when he walks. It goes away from time to time. Patient denies any nausea vomiting. Did have some pain localized to the area. There is no change in bowel movements. There is no fever no chills. Chest pain or shortness of breath. Bowel movement has been the same. Patient's stool is black 2 she is on iron. But it is hard. Patient denies any travel history. Any changes in medication. He is from home. History of coronary artery disease. Related Data Home Medications ?Medication ?Instructions ?Recorded ?Confirmed atorvastatin 40 mg tablet 40 mg PO DAILY@17003/19/22 12/05/23 fenofibrate nanocrystallized 145 145 mg PO DAILY@0703/19/22 12/05/23 mg tablet dutasteride 0.5 mg capsule 0.5 mg PO DAILY@169908/06/22 12/05/23 (Avodart) bumetanide 2 mg tablet 2 mg PO BID@0700,169909/05/23 12/05/23 cholecalciferol (vitamin D3) 10 10 mcg PO DAILY@0709/05/23 12/05/23 mcg (400 unit) tablet ferrous sulfate 325 mg (65 mg 325 mg PO BID@0700,169909/05/23 12/05/23 iron) tablet metoprolol succinate 25 mg 25 mg PO QPM@169909/05/23 12/05/23 tablet,extended release 24 hr omeprazole 20 mg capsule,delayed 20 mg PO DAILY 09/05/23 12/05/23 release rivaroxaban 20 mg tablet (Xarelto) 20 mg PO DAILY@169909/05/23 12/05/23 vit C 250 mg-vit E 90 mg-zinc 40 1 tab PO BID@1200,169909/05/23 12/05/23 mg-copper 1 cy-khcccl-nkxipu capsule (PreserVision AREDS-2) Previous Rx's ?Medication ?Instructions ?Recorded midodrine 2.5 mg tablet 2.5 mg PO TID #270 tabs 09/05/23 digoxin 125 mcg (0.125 mg) tablet 125 mcg PO DAILY #90 tabs 09/17/23 potassium chloride 20 mEq 20 meq PO DAILY #90 tabs 09/17/23 tablet,extended release Allergies Allergy/AdvReac Type Severity Reaction Status Date / Time hydromorphone [From Dilaudid] AdvReac Confusion Verified 01/16/24 10:07 Review of Systems Review of Systems Positive pain in the right periumbilical area [facility] Past Medical History Attestation statement: The following information was validated with the patient. Medical History Anemia Acute congestive heart failure Acute upper gastrointestinal bleeding Acute blood loss anemia COPD (chronic obstructive pulmonary disease) Hyperlipidemia Afib Nasal sinus tumor CAD (coronary artery disease) Surgical History Hx of CABG Social History Social History Household Members: Spouse Housing: House Do you presently have visiting nurse or other home services: No Alcohol intake: current Alcohol intake frequency: holidays/special occasions only Alcohol type: beer Patient Tobacco Use Status: Former Tobacco user Tobacco use type: Cigar Smoked in Last 30 Days: No Use of substances other than those prescribed or required for medical reasons: No Advance Directives: Yes Advance Directives on File: Yes Advance Directives Date on File: 02/16/22 service: No Current occupational status: retired Physical Exam ED Vital Signs: Vital Signs - 24 hr 01/16/24 10:04 01/16/24 12:00 01/16/24 13:59 Temperature 98.3 F 98.4 F 98.1 F Pulse Rate 75 74 57 Respiratory Rate 16 16 16 Blood Pressure 123/78 136/64 123/55 L Pulse Oximetry 98 99 97 Oxygen Delivery Method Room Air Room Air Room Air 01/16/24 16:45 Temperature 97.4 F Pulse Rate 80 Respiratory Rate 13 Blood Pressure 114/56 L Pulse Oximetry 96 Oxygen Delivery Method Room Air BMI result Body Mass Index 25.8 Appearance: Alert. Oriented X3. No acute distress. Eyes: Pupils equal, round and reactive to light. ENT: Pharynx normal. Neck: Normal inspection. Neck supple. No lymph nodes noted. No crepitus CVS: Normal heart rate and rhythm. Pulses normal. Normal S1 and S2 Respiratory: No respiratory distress. Breath sounds normal. No Wheezing. No rales Abdomen: Soft and nontender. No rigidity. No distention. good BS x4. No mass palpable. Attempted to have patient bear down. No mass palpable. And patient ambulated in the ED no mass palpable. Skin: Skin warm and dry. Normal skin color. Normal skin turgor. Extremities: No lower extremity edema. Neurovascular intact to all extremities. No Lacerations. No Rash Neuro: Oriented X 3. No motor deficit. No sensory deficit. Moving all extermities. No slurred speech Medical Decision Making Medical Decision Making [facility] Narrative: By the time I examined the patient the mass is no longer palpable. His abdominal exam is soft nontender. A CT scan was nevertheless done. Patient has no pain in his abdomen. CT scan showed no evidence of incarcerated hernia. It did show a right-sided Spigelian hernia, containing only on no distress. White count is normal. Hemoglobin is 10.5. Patient's electrolytes were normal. Lactate is 0.9. Urine showed no gross signs of infection. CT scan did show [place] superficial femoral arteries are occluded. Within the visualized proximal right thigh, the femoral bypass graft is occluded. Patient is aware of this finding. Currently being followed by a vascular surgeon at [facility]. Has good pulses to the lower extremity. Patient is in stable condition will discharge home. Currently on Xarelto Differential Diagnosis Differential Diagnoses: The differential diagnosis associated with the presentation includes Hernia, intra-abdominal mass Admission/Observation Consideration of admission/observation: Escalation of care including admission/observation considered Lab Data [facility] Lab Attestation statement: I reviewed the patient's lab results. 01/16/24 10:19 01/16/24 10:19 Labs: Lab Results 01/16/24 01/16/24 01/16/24 Range/Units 10:19 12:09 12:36 WBC 5.5 (4.8-10.8) X10*3/uL RBC 3.10 L (4.60-5.80) X10*6/uL Hgb 10.5 L (14.0-18.0) g/dl Hct 31.8 L (42.0-52.0) % MCV 102.6 H (80.0-98.0) fL MCH 33.9 H (27.0-33.0) pg MCHC 33.0 (31.0-36.0) g/dl RDW 16.6 H (11.0-16.0) % Plt Count 208 (160-400) X10*3/uL MPV 10.0 (9.4-12.4) fL Immature Gran % (Auto) 0.4 (0.0-0.4) % Neut % (Auto) 57.8 (45-73) % Lymph % (Auto) 24.9 (20-40) % [place] % (Auto) 14.5 H (2-11) % Eos % (Auto) 1.5 (0-4) % Baso % (Auto) 0.9 (0-2) % Lymph # (Auto) 1.4 (1.2-4.9) X10*3/uL [place] # (Auto) 0.8 (0.1-1.2) X10*3/uL Eos # (Auto) 0.1 (0.0-0.4) X10*3/uL Baso # (Auto) 0.1 (0.0-0.2) X10*3/uL Abs Immat Gran (auto) 0.02 (0.00-0.03) X10*3/uL Absolute Neuts (auto) 3.2 (2.0-8.3) x10*3/uL Absolute Nucleated RBC 0.000 (0.0-0.012) X10*3/uL Nucleated RBC % (auto) 0.0 (0.0-0.2) /100WBC Sodium 140 (135-145) mmol/L Potassium 4.1 (3.3-5.1) mmol/L Chloride 106 (96-108) mmol/L Carbon Dioxide 28 (22-29) mmol/L Anion Gap 10 L (12-20) BUN 13 (9-16) mg/dL Creatinine 0.97 (0.5-1.4) mg/dL Estim Creat Clear Calc 66.8 Estimated GFR > 60 Random Glucose 103 (60-115) mg/dL Lactic Acid 0.9 (0.5-2.0) mmol/L Calcium 10.0 (8.4-10.2) mg/dL Total Bilirubin 0.7 (0.0-1.0) mg/dL Direct Bilirubin 0.3 (0.0-0.5) mg/dL AST 25 (5-37) U/L ALT 10 (0-40) U/L Alkaline Phosphatase 46 (39-117) U/L Total Protein 7.0 (6.5-8.0) g/dL Albumin 3.9 (3.5-5.0) g/dL Lipase 67 (8-78) U/L Urine Color Yellow Urine Appearance Clear Urine pH 5.5 (5.0-9.0) Ur Specific [place] 1.015 (1.005-1.025) Urine Protein 30 (1+) H (Neg-Trace) mg/dL Urine Glucose (UA) Negative (Negative) mg/dL Urine Ketones Negative (Negative) mg/dL Urine Blood Trace H (Negative) Urine Nitrite Negative (Negative) Ur Leukocyte Esterase Negative (Negative) Urine RBC 6-10 H (0-2) /HPF Urine WBC 0-5 (0-5) /HPF Ur Squamous Epith Cells 0-2 (0-2) /HPF Urine Bacteria None Seen (None Seen) Hyaline Casts 0-2 (0-2) /LPF Independent Interpretation I performed an independent interpretation of an: CT Scan (I reviewed radiology's reading of the CT scan) Radiology Impression Discussion of test interpretation with radiology: I have reviewed the radiologist's reading. Independent Historian Additional history obtained through patient's family External Record Review External record reviewed: Office record Medications Administered Discontinued Medications Generic Name Dose Route Start Last Admin Trade Name Freq PRN Reason Stop Dose Admin Iohexol 100 ml 01/16/24 13:40 01/16/24 13:40 Iohexol 350 Mg/Ml 100 Ml Infus..Btl IV 01/16/24 13:41 85 ml ONCE ONE Administration Discharge Plan Discharge Clinical Impression: Abdominal pain Patient Disposition: Home, Self-Care Instructions: Ventral Hernia (ED) Prescriptions: No Action midodrine 2.5 mg tablet 2.5 mg PO TID Qty: 270 3RF digoxin 125 mcg (0.125 mg) tablet 125 mcg PO DAILY Qty: 90 3RF potassium chloride 20 mEq tablet extended release 20 meq PO DAILY Qty: 90 3RF fenofibrate nanocrystallized 145 mg tablet 145 mg PO DAILY@0700 atorvastatin 40 mg tablet 40 mg PO DAILY@1700 bumetanide 2 mg tablet 2 mg PO BID@0700,1700 ferrous sulfate 325 mg (65 mg iron) tablet 325 mg PO BID@0700,1700 omeprazole 20 mg capsule,delayed release(DR/EC) 20 mg PO DAILY metoprolol succinate 25 mg tablet extended release 24 hr 25 mg PO QPM@1700 Xarelto 20 mg tablet 20 mg PO DAILY@1700 cholecalciferol (vitamin D3) 10 mcg (400 unit) Tablet 10 mcg PO DAILY@0700 PreserVision AREDS-2 250-90-40-1 mg Capsule 1 tab PO BID@1200,1700 dutasteride [Avodart] 0.5 mg capsule 0.5 mg PO DAILY@1700 Referrals: Timmy Noe MD [Physician] - Print Language: Czech
[2024-01-16 12:50] LABS: Lactic Acid 0.9 mmol/L (0.5-2.0)
[2024-01-16] MEDS: iohexoL 350 MG/ML 100 ML INFUS..BTL IV (13:40)
[2024-01-16 13:59] VITALS: BP 123/55; PULSE 57; RESP 16; TEMP 36.7; O2SAT 97
[2024-01-16 16:45] VITALS: BP 114/56; PULSE 80; RESP 13; TEMP 36.3; O2SAT 96
--- NOTE | 2024-01-16 17:07 | PC.NURSE ---
Patient and visitors heard yelling at EDT Nathalie about not being able to eat, after being explained multiple times by multiple members of staff that there can be a delay. Provider approved patient is okay to eat at the moment, should be in shortly to speak with the patient.
[2024-01-16 17:34] VITALS: BP 114/56; PULSE 80; RESP 13; TEMP 36.3; O2SAT 96
--- NOTE | 2024-01-16 17:36 | PC.NURSE ---
Patient extremely anxious to leave ER, upset with how long his visit took. Explained to patient that wait times for CT results can fluctuate multiple times throughout his stay. Patient not satisfied with this answer. Family member worried that patient will bleed out from his removed IV site. Pressure held x 2 min, no bleeding noted, extra gauze and tape given to patient in case of bleeding for ride home.
== END 2024-01-16 17:20 | disposition home or self-care (01) ==
PROVIDERS: Physician Assistant; Emergency Provider Emergency Medicine Emergency Medical Services; PCP Internal Medicine
DX: R10.33 Periumbilical pain (principal); R19.05 Periumbilic swelling, mass or lump; I48.91 Unspecified atrial fibrillation; E78.5 Hyperlipidemia, unspecified; J44.9 Chronic obstructive pulmonary disease, unspecified; Z79.899 Other long term (current) drug therapy; Z79.02 Long term (current) use of antithrombotics/antiplatelets
CPT/HCPCS: 36415; 74177; 80048; 80076; 81001; 83605; 83690; 85025; 99284; Q9967

== ENCOUNTER 2024-03-30 10:32 | Outpatient (AMB) | payer MEDICARE, SELFPAY ==
--- NOTE | 2024-03-30 10:44 | A.OFFVIS_ITS ---
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 Required: No Allergies hydromorphone [From Dilaudid] Adverse Reaction (Verified 01/16/24 10:07) Confusion Medication List - Last Reconciled 03/30/24 by Rudi Mccoy MD atorvastatin 40 mg PO DAILY@1700 bumetanide 2 mg PO BID@0700,1700 90 days cholecalciferol (vitamin D3) 10 mcg PO DAILY@0700 digoxin 125 mcg PO DAILY dutasteride (Avodart) 0.5 mg PO DAILY@1700 fenofibrate nanocrystallized 145 mg PO DAILY@0700 ferrous sulfate 325 mg PO BID@0700,1700 metoprolol succinate ER 25 mg PO QPM@1700 midodrine 2.5 mg PO TID omeprazole 20 mg PO DAILY potassium chloride ER 20 mEq PO DAILY rivaroxaban (Xarelto) 20 mg PO DAILY@1700 vit C,T-Ct-yfgka-lutein-zeaxan 250-90-40-1 mg (PreserVision AREDS-2) 1 tab PO BID@1200,1700 HPI Comments Details: Hector comes for 6 month follow-up. He has been doing well from cardiac perspective. He said he does his usual activity without any symptoms of chest pain or shortness of breath. Denies any worsening heart failure symptoms. No orthopnea, PND, leg edema worsening weight gain or abdominal distension. Denies prolonged palpitation irregular heartbeat. No lightheadedness, syncope. No hospitalization last 6 months. No bleeding issues or neurologic events. [facility] Medical History Anemia Acute congestive heart failure Acute upper gastrointestinal bleeding Acute blood loss anemia COPD (chronic obstructive pulmonary disease) Hyperlipidemia Afib Nasal sinus tumor CAD (coronary artery disease) Surgical History Hx of CABG Social History Household Members: Spouse Housing: House Do you presently have visiting nurse or other home services: No Alcohol intake: current Alcohol intake frequency: holidays/special occasions only Alcohol type: beer Patient Tobacco Use Status: Former Tobacco user Tobacco use type: Cigar Advance Directives Date on File: 02/16/22 service: No Current occupational status: retired Review of Systems Const Denies chills, Denies fatigue, Denies fever(s), Denies frequent falls, Denies weakness, Denies weight gain and Denies weight loss ENT Denies dizziness Card Denies chest pain, Denies leg edema, Denies lightheadedness, Denies palpitations, Denies dyspnea, Denies dyspnea on exertion, Denies orthopnea and Denies other (loss of consciousness) Resp Denies cough, Denies dyspnea and Denies dyspnea on exertion GI Denies hematochezia and Denies change in stool character Musc Denies abnormal gait, Denies muscle weakness, Denies numbness, Denies radiating pain into limb and Denies tingling Neuro Denies abnormal gait, Denies dizziness, Denies frequent falls, Denies numbness, Denies tingling and Denies weakness Endo Denies fatigue and Denies palpitations Physical Exam Vital Signs: Last Vital Signs Pulse 58 03/30/24 10:45 BP 118/70 03/30/24 10:45 BMI result Body Mass Index 24.9 Const General: cooperative, comfortable, no acute distress, alert, awake and tired appearing Nutritional Appearance: well nourished and other (Frail) Orientation/consciousness: patient oriented x3 Limitations: no limitations Neck Neck: Yes trachea midline, Yes supple and Yes no JVD Chest Chest palpation & inspection: normal inspection of the chest Resp Effort & Inspection: normal respiratory effort Auscultation: wheezes expiratory wheezes and lower bilaterally Cardio Jugular venous distension: no JVD Rate: regular rate Rhythm: abnormal rhythm irregularly irregular Heart sounds: S1 normal heart sound present, S2 normal heart sound present, no click, no gallops and no murmurs GI Auscultation: normal bowel sounds Skin General skin exam: no rashes or lesions noted and ecchymosis Neuro General: patient oriented x3 and no focal motor deficits Extrem General: No clubbing, No cyanosis and Yes edema (Right 2 to 3+, greater than left 1+) Assessment & Plan Assessment & Plan (1) (HFpEF) heart failure with preserved ejection fraction: Code(s): I50.30 - Unspecified diastolic (congestive) heart failure Category: Medical Plan: Heart failure preserved ejection fraction, clinically euvolemic and well compensated current diuretic dose. Has done well with current diuresis and use of midodrine therapy to maintain blood pressure. Continue the same. Continue aggressive rate control approach. Signs and symptoms of heart failure were discussed. Daily weight monitoring avoidance of salt loading was discussed. Additional diuretics as need be. Goals of therapy were discussed including maintain good quality of life and avoiding hospitalization. Understands and agrees. Advised to call me with worsening symptoms. (2) Chronic atrial fibrillation: Code(s): I48.20 - Chronic atrial fibrillation, unspecified Category: Medical Plan: Chronic atrial fibrillation which is currently rate controlled on metoprolol and digoxin which is required to control his rate and help with heart failure syndrome. Given the chronicity of atrial fibrillation unlikely to pursue rhythm control approach. Currently on full oral anticoagulation with Xarelto 20 mg daily. Being followed by Hematology for anemia. Continue monitor for signs and symptoms of bleeding. If he has significant bleeding issues may benefit from [place] t[place]man device. Continue quarterly renal function test. (3) CAD (coronary artery disease): Code(s): I25.10 - Atherosclerotic heart disease of [place] coronary artery without angina pectoris Category: Medical Plan: CAD status post remote coronary artery bypass grafting with no symptoms of angina. Currently blood pressure is optimized with midodrine therapy. Continue the same. Avoid aspirin therapy given being on Xarelto to reduce bleeding risk. Continue aggressive risk factor modification. Continue high-intensity statin therapy. Target goal LDL closer to 60 mg/dL. Will follow up in the clinic in 6 months time, sooner p.r.n.. Thank you for allowing me to partake in his care Orders: Orders Digoxin Today I48.20 - Chronic atrial fibrillation, unspecified Basic Metabolic Panel Today I48.20 - Chronic atrial fibrillation, unspecified Coding Level of Care Code Est Pt Level 4 (54205) Diagnoses (HFpEF) heart failure with preserved ejection fraction I50.30 Chronic atrial fibrillation I48.20 CAD (coronary artery disease) I25.10
[2024-03-30 10:45] VITALS: BP 118/70; PULSE 58; BMI 24.9
== END 2024-03-30 11:08 | disposition home or self-care (01) ==
PROVIDERS: PCP Internal Medicine; Visit Provider Internal Medicine Cardiovascular Disease
DX: I50.30 Unspecified diastolic (congestive) heart failure (principal); I48.20 Chronic atrial fibrillation, unspecified; I25.10 Atherosclerotic heart disease of native coronary artery without angina pectoris
CPT/HCPCS: 99214

== ENCOUNTER → 2024-03-30 10:32 | Outpatient (BNVA) | payer MEDICARE, SELFPAY | PROVIDERS: PCP Internal Medicine; Visit Provider Internal Medicine Cardiovascular Disease | DX: I50.30 Unspecified diastolic (congestive) heart failure (principal); I48.20 Chronic atrial fibrillation, unspecified; I25.10 Atherosclerotic heart disease of native coronary artery without angina pectoris | CPT/HCPCS: 99212 ==

== ENCOUNTER 2024-07-03 09:27 | Outpatient (REF) | payer MEDICARE, SELFPAY ==
--- OUTSIDE RECORDS SUMMARY | 2024-07-03 09:47 | XMS_ITS ---
Author Organization [facility] [place] Address [address] [place] [address] Care Team Providers Care Offset Printing Pressmen Name Role Phone Darek Ronquillo MD Primary Care Provider Ariadne Doan Unavailable [phone] Allergies Allergen (clinical drug ingredient) Drug/Non Drug Allergy documented on EMR Reaction Allergy Type Onset Date Status hydromorphone Dilaudid hallucinations Drug Allergy Active tramadol traMADol HCl hallucinations Drug Allergy Active REASON FOR VISIT At Risk Footcare, Painful Nail(s) aggrevated by shoes and causing difficulty standing/walking. Medications Medication SIG (Take, Route, Frequency, Duration) Notes Start Date End Date Status Vitamin D3 Active Dutasteride 0.5 MG 1 capsule Orally Onc e a day for 30 day(s) Active Bumetanide 2 MG 1 tablet Orally Once a day for 30 day(s) Active Amiodarone HCl 200 MG 1 tablet Orally On ce a day for 30 day(s) Active Atorvastatin Calcium 40 MG 1 tablet Oral ly Once a day for 30 day(s) Active Omeprazole 20 MG 1 capsule 30 minutes before morning meal Orally Once a day for 30 day(s) Active Metoprolol Succinate ER 25 MG 1 tablet Orally Once a day for 30 day(s) Active Midodrine HCl 2.5 MG 1 tablet Orally Twi ce a day for 30 day(s) Active Fenofibrate 145 MG 1 tablet Orally Once a day for 30 day(s) Active Ferrous Sulfate 325 (65 Fe) MG 1 tablet Orally Once a day for 30 day(s) Active Acetaminophen 325 MG 1 tablet as needed Orally every 4 hrs Active Xarelto 20 MG 1 tablet with food Orally Once a day for 30 day(s) Active Social History Tobacco Use: Social History Observation Description Date Details (start date - stop date) Former Smoker NA - NA Tobacco Use/Smoking Question Answer Notes Are you a: former smoker Additional Findings: Tobacco Non-User Ex-cigaret te smoker Tobacco use other than smoking: Question Answer Notes Are you an other tobacco user? Yes C igars a couple a week Vital Signs Height 5 ft 11 in in 02/25/2024 Weight 180 lbs 02/25/2024 BMI 25.1 kg/m2 02/25/2024 Blood pressure systolic 120 mm Hg 02/25/20 24 Blood pressure diastolic 60 mm Hg 024 Encounters Encounter Location Date Provider Diagnosis [facility] [address] [address] 02/25/2024 Ariadne Long Atherosclerosis of artery of both lower extremities I70.203 Assessments Encounter Date Diagnosis (ICD Code) Assessment Notes Treatment Notes Treatment Clinical Notes Section Notes 02/25/2024 Atherosclerosis of artery of both lower extremities (ICD-10 - I70.203) Plan Of Treatment Next Appt Details Follow Up: 2 Months, Reason: Provider Name:Ariadne ordoñez, 07/21/2024 03:15:00 PM, [address] [place] [address], [id number], Procedure Notes * Category Sub-Category Detail Notes Keratoma Treatment Parring or Cutting o f Benign Hyperkeratotic Lesion(s) 57911 ( 2-4 Lesions ) - The Benign hyperkeratotic lesions, as described above were pared, and/or cut utilizing a sterile 15 blade, tissue nippers, and/or dremel , Q8 Nail Reduction Nail Reduction Trimming of dyst rophic nails performed to reduce/remove overall nail length and girth, by manual and electrical means with use of a nail nipper and/or dremel, to more viable healthy nail plate or bed tissue 6-10 (S1912-U9) Progress Notes * Hector DIAZ HDOB:1945 (78 yo M)Acc No.[id number]:02/25/2024 Progress Note Patient:?Hector Diaz H Provider:?Ariadne Long DPM :1945???Age:78 Y???Sex:Male Fred e:02/25/2024 Address:[address] [place] [address] [id number] Pcp:Darek Ronquillo MD Subjective: * Chief Complaints: * ???At Risk FootcarePainful N ail(s) aggrevated by shoes and causing difficulty standing/walking. * HPI: ???At Risk footcare:?Pt States Last PCP Visit:?Date?02/10/2024 * ROS:?General/Constitutional:?Nausea?denies, denies.?Vomiting?denies, denies.?Hunger Thirst?denies, denies.?Loss appetite?denies, denies.?Chills?denies, denies.?Fatigue?denies, denies.?Fever?denies, denies.?Night Sweats denies, denies.?Unexplained weight loss?denies, denies.?Unexplained weight gain?denies, denies.?HEENTM:?Dentures?denies, denies.?Dizziness?denies, denies.?Glasses/contacts?admits, admits.?Retinopathy?denies, denies.?Blurred/double vision?denies, denies.?TMJ?denies, denies.?Discharge/drainage?denies, denies.?Implants?denies, denies.?Sore throat?denies, denies.?Dental implants?denies, denies.?Hard of hearing ?denies, denies.?Difficulty chewing/swallowing/speaking?denies, denies.?Nose bleeds?admits, admits.?Sore mouth?denies, denies.?Respiratory:?On Oxygen?denies, denies.?Pneumonia/pleurisy?denies, denies.?Bronchitis?denies, denies.?Emphysema?denies, denies.?Coughing?admits, admits.?Cough blood?denies, denies.?Shortness of breath?denies, denies.?Wheezing?denies, denies.?Cardiovascular:?Pacemaker?denies, denies.?MVP?denies, denies.?WPW?denies, denies.?CHF?admits, admits.?Heart attack?denies, denies.?Septal defect?admits, admits.?Rapid beat?admits, admits.?Chest pain ?denies, denies.?Atrial Fib.?admits, admits.?Murmur/Palpitations?denies, denies.?Gastrointestinal:?Hemorrhoids?denies, denies.?Stomach/Abdominal pain?denies, denies.?Dark blood stool?denies, denies.?Irritable bowel ?denies, denies.?Constipation?denies, denies.?Diarrhea?denies, denies.?Hematology:?Swelling?denies, denies.?Clots?denies, denies.?Varicose Veins?denies, denies.?Bruising?denies, denies.?Bleeding problem?denies, denies.?Genitourinary:?Blood urine?denies, denies.?Frequent/Painfu/urination/bladder control?denies, denies.?Kidney stones?denies, denies.?Infection (UTI)?denies, denies.?Nephropathy?denies, denies.?sex trans dis (STD)?denies, denies.?Prostate?admits, admits.?Musculoskeletal:?Hammertoes?denies, denies.?Bunions?denies, denies.?Back Pain?denies, denies.?Muscle Cramps/ Resting?denies, denies.?Muscle cramps / walking?denies, denies.?Generalized aches and pains?denies, denies.?Weakness?admits, admits.?Integ.:?Murphy?denies, denies.?Scars?denies, denies.?Corns/calluses?denies, denies.?Ingrown nails?denies, denies.?Painful nails?admits,admits.?Open Sores?denies, denies.?Rashes?denies, denies.?Neurologic:?Difficulty sleeping?denies, denies.?Brain disorder?denies, denies.?Numbness?admits, admits.?Balance trouble?denies, denies.?Confusion?denies, denies.?Fainting/blackouts?denies, denies.?Tingling?admits, admits.?Tremors?denies, denies.? * Medical History:? * Surgical History:?CABG surge ry - 3 vessel 2004right max sinus cancer 2019right leg bypass graft 04/09/2022left leg bypass graft 07/04/2022, 07/06/2022 * Hospitalization/Major Diagno stic Procedure:?Denies Past Hospitalization * Family History:?Mother: dece ased, diagnosed with Unspecified essential hypertension, Unspecified heart disease.?Father: , diagnosed with Unspecified heart disease.? * Social History:?Tobacco Use:?Tobacco Use/Smoking?Are you a:?former smoker ?Additional Findings: Tobacco Non-User?Ex-cigarette smoker ?Tobacco use other than smoking?Are you an other tobacco user??Yes Cigars a couple a week ???Miscellaneous:?Caffeine: yes, 2 cups coffee and 1 soda per day. ?Children: yes, 3. ?no Exercise. ?Marital status: . 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 * Medications:?TakingAcetamino phen 325 MG Tablet 1 tablet as needed Orally every 4 hrsXarelto 20 MG Tablet 1 tablet with food Orally Once a dayOmeprazole 20 MG Capsule Delayed Release 1 capsule 30 minutes before morning meal Orally Once a dayMidodrine HCl 2.5 MG Tablet 1 tablet Orally Twice a dayMetoprolol Succinate ER 25 MG Tablet Extended Release 24 Hour 1 tablet Orally Once a dayFerrous Sulfate 325 (65 Fe) MG Tablet 1 tablet Orally Once a dayFenofibrate 145 MG Tablet 1 tablet Orally Once a dayDutasteride 0.5 MG Capsule 1 capsule Orally Once a dayVitamin D3 Bumetanide 2 MG Tablet 1 tablet Orally Once a dayAtorvastatin Calcium 40 MG Tablet 1 tablet Orally Once a dayAmiodarone HCl 200 MG Tablet 1 tablet Orally Once a dayMedication List reviewed and reconciled with the patientTaking Acetaminophen 325 MG Tablet 1 tablet as needed Orally every 4 hrsTaking Xarelto 20 MG Tablet 1 tablet with food Orally Once a dayTaking Omeprazole 20 MG Capsule Delayed Release 1 capsule 30 minutes before morning meal Orally Once a dayTaking Midodrine HCl 2.5 MG Tablet 1 tablet Orally Twice a dayTaking Metoprolol Succinate ER 25 MG Tablet Extended Release 24 Hour 1 tablet Orally Once a dayTaking Ferrous Sulfate 325 (65 Fe) MG Tablet 1 tablet Orally Once a dayTaking Fenofibrate 145 MG Tablet 1 tablet Orally Once a dayTaking Dutasteride 0.5 MG Capsule 1 capsule Orally Once a dayTaking Vitamin D3 Taking Bumetanide 2 MG Tablet 1 tablet Orally Once a dayTaking Atorvastatin Calcium 40 MG Tablet 1 tablet Orally Once a dayTaking Amiodarone HCl 200 MG Tablet 1 tablet Orally Once a dayMedication List reviewed and reconciled with the patient * Allergies:?Dilaudid: halluci nationstraMADol HCl: hallucinationsyes[Allergies Verified] Objective: * Vitals:?Ht: 5 ft 11 in, Wt: 180, BMI: 25.1, Shoe size: 10.5-11, BP: 120/60 mm Hg, Wt-k.65 kg. * Examination: ???Vascular: ?DP PULSES:? 0/4, B/L.?PT PULSES:? 0/4, B/L.?CAPILLARY FILL TIME:? delayed, all digits, B/L.?SKIN TEMPERTURE GRADIENT OF THE LOWER EXTERMITIES:? decreased, cool to cool, proximal to distal, B/L.?HAIR GROWTH/TEXTURE/ELASTICITY/TURGOR:? decreased, B/L.?PIGMENTATION:? pale, B/L.?EDEMA:? 2/4 pitting B/L Ankle(s) Feet.?Nails: ?NAILS are:? Elongated, overgrown, dystrophic 1-5 B/L.?Dermatologic: ?SKIN FINDINGS:?Skin exam reveals Keratotic lesion(s) located at , Heel(s) , Left , TA , T5.?Neurological: ?SENSORY:?Neurological exam reveals intact sensorium, pain sensation normal, vibration sensation intact, pinprick sensation is normal in the lower extremities, Pt denies, anesthesia, burning, paresthesia, tingling, B/L.? Assessment: * Assessment: 1.?Atherosclerosis of artery of both lower extremities - I70.203 (Primary)? Plan: * Treatment: * Procedures:?Keratoma Treatment:?Parring or Cutting of Benign Hyperkeratotic Lesion(s)?95017 ( 2-4 Lesions ) - The Benign hyperkeratotic lesions, as described above were pared, and/or cut utilizing a sterile 15 blade, tissue nippers, and/or dremel , Q8.?Nail Reduction:?Nail Reduction?Trimming of dystrophic nails performed to reduce/remove overall nail length and girth, by manual and electrical means with use of a nail nipper and/or dremel, to more viable healthy nail plate or bed tissue 6-10 (G0127- Q8).? * Procedure Codes:?G0127 WANDA ING DYSTROPHIC NAILS ANY #, Modifiers: XS , [id number] TRIM SKIN LESIONS, 2 TO 4, Modifiers: XS , Q8 * Follow Up:?2 Months * Images: * Sign off status: Completed true * Provider:?Ariadne Long DPM Date:? Generated for Sera swenson/Joey/eTransmitting on:?07/03/2024 09:46 AM EST History and Physical Notes * HPI (History of Present Illness) Category Sub-Category Detail Notes Category Not es At Risk footcare Pt States Last PCP Visit: Date: Examination Category Sub-Category Detail Notes Category Not es Neurological SENSORY: Neurological exa m reveals intact sensorium, pain sensation normal, vibration sensation intact, pinprick sensation is normal in the lower extremities, Pt denies, anesthesia, burning, paresthesia, tingling, B/L Dermatologic SKIN FINDINGS: Skin exam reveal s Keratotic lesion(s) located at , Heel(s) , Left , TA , T5 Vascular DP PULSES (B): 0/4, B/L PT PULSES (B): 0/4, B/L CAPILLARY FILL TIME: delayed, all digits , B/L TEMPERTURE GRADIENT (C): decreased, cool to cool, proximal to distal, B/L TROPHIC CONDITION-TEXTURE/ELASTICITY/TURGOR/HAIR GROWTH (B): decreased, B/L EDEMA (C): 2/4 pitting B/L Ankl e(s) Feet PIGMENTATION: pale, B/L Nails NAILS are: Elongated, overgrown, dystro phic 1-5 B/L
--- OUTSIDE RECORDS SUMMARY | 2024-07-03 09:47 | XMS_ITS ---
Author Organization [facility] Address [address] [place] [address] Care Team Providers Care Experimental Aircraft Mechanic Name Role Phone Darek Ronquillo MD Primary Care Provider Unavaila Soren Mckoy Jr REASON FOR VISIT Capsule Encounters Encounter Location Date Provider Diagnosis [facility] [address] [place] [id number] 11/05/2023 Soren Boothe Jr PLAN OF TREATMENT No Information
--- OUTSIDE RECORDS SUMMARY | 2024-07-03 09:47 | XMS_ITS ---
Author Organization [facility] [place] Address [address] [place] [address] Care Team Providers Care Mechanical Handyman Name Role Phone Darek Ronquillo MD Primary Care Provider Ariadne Doan Unavailable [phone] Allergies Allergen (clinical drug ingredient) Drug/Non Drug Allergy documented on EMR Reaction Allergy Type Onset Date Status hydromorphone Dilaudid hallucinations Drug Allergy Active tramadol traMADol HCl hallucinations Drug Allergy Active REASON FOR VISIT At Risk Footcare, Painful Nail(s) aggrevated by shoes and causing difficulty standing/walking. Medications Medication SIG (Take, Route, Frequency, Duration) Notes Start Date End Date Status Metoprolol Succinate ER 25 MG 1 tablet Orally Once a day for 30 day(s) Active Midodrine HCl 2.5 MG 1 tablet Orally Twi ce a day for 30 day(s) Active Omeprazole 20 MG 1 capsule 30 minutes before morning meal Orally Once a day for 30 day(s) Active Xarelto 20 MG 1 tablet with food Orally Once a day for 30 day(s) Active Acetaminophen 325 MG 1 tablet as needed Orally every 4 hrs Active Dutasteride 0.5 MG 1 capsule Orally Onc e a day for 30 day(s) Active Vitamin D3 Active Amiodarone HCl 200 MG 1 tablet Orally On ce a day for 30 day(s) Active Atorvastatin Calcium 40 MG 1 tablet Oral ly Once a day for 30 day(s) Active Bumetanide 2 MG 1 tablet Orally Once a day for 30 day(s) Active Ferrous Sulfate 325 (65 Fe) MG 1 tablet Orally Once a day for 30 day(s) Active Fenofibrate 145 MG 1 tablet Orally Once a day for 30 day(s) Active Social History Tobacco Use: Social History Observation Description Date Details (start date - stop date) Former Smoker NA - NA Tobacco Use/Smoking Question Answer Notes Are you a: former smoker Additional Findings: Tobacco Non-User Ex-cigaret te smoker Alcohol Screen Question Answer Notes Did you have a drink contain ing alcohol in the past year? Yes How often did you have a dri nk containing alcohol in the past year? 4 or more times a week (4 points) How often did you have 6 or more drinks on one occasion in the past year? Daily or almost daily (4 points) Points 8 Interpretation Positive Tobacco use other than smoking: Question Answer Notes Are you an other tobacco user? Yes C igars a couple a week Vital Signs Height 5 ft 11 in in 12/17/2023 Weight 180 lbs 12/17/2023 BMI 25.1 kg/m2 12/17/2023 Blood pressure systolic 120 mm Hg 12/17/19 24 Blood pressure diastolic 60 mm Hg 024 Encounters Encounter Location Date Provider Diagnosis [facility] [place] [address] [place] [address] 12/17/2023 Ariadne Long Atherosclerosis of artery of both lower extremities I70.203 Assessments Encounter Date Diagnosis (ICD Code) Assessment Notes Treatment Notes Treatment Clinical Notes Section Notes 12/17/2023 Atherosclerosis of artery of both lower extremities (ICD-10 - I70.203) Plan Of Treatment Next Appt Details Follow Up: 2 Months, Reason: Provider Name:Ariadne ordoñez, 07/21/2024 03:15:00 PM, [address] [place], [address], Procedure Notes * Category Sub-Category Detail Notes Keratoma Treatment Parring or Cutting o f Benign Hyperkeratotic Lesion(s) 70381 ( 2-4 Lesions ) - The Benign [...] healthy nail plate or bed tissue 6-10 (O9013-Y1) Progress Notes * Hector DIAZ HDOB:1945 (78 yo M)Acc No.[id number]:12/17/2023 Progress Note Patient:?Hector Diaz Provider:?Ariadne Long DPM :1945???Age:78 Y???Sex:Male Fred e:12/17/2023 Address:[address] [place] [address] [id number] Pcp:Darek Ronquillo MD Subjective: * Chief Complaints: * ???At Risk FootcarePainful N ail(s) aggrevated by shoes and causing difficulty standing/walking. * HPI: ???At Risk footcare:?Pt States Last PCP Visit:?Date?11/06/2023 * ROS:?General/Constitutional:?Nausea?denies.?Vomiting?denies.?Hunger Thirst?denies.?Loss appetite?denies.?Chills?denies.?Fatigue?denies.?Fever?denies.?Night Sweats?denies.?Unexplained weight loss?denies.?Unexplained weight gain?denies.?HEENTM:?Dentures?denies.?Dizziness?denies.?Glasses/contacts?admits.?Retinopathy?de nies.?Blurred/double vision?denies.?TMJ?denies.?Discharge/drainage?denies.?Implants?denies.?Sore throat?denies.?Dental implants?denies.?Hard of hearing ?denies.?Difficulty chewing/swallowing/speaking?denies.?Nose bleeds?admits.?Sore mouth?denies.?Respiratory:?On Oxygen?denies.?Pneumonia/pleurisy?denies.?Bronchitis?denies.?Emphysema?denies.?C oughing?admits.?Cough blood?denies.?Shortness of breath?denies.?Wheezing?denies.?Cardiovascular:?Pacemaker?denies.?MVP?denies.?WPW?denies.?CHF?admits.?Heart attack?denies.?Septal defect?admits.?Rapid beat?admits.?Chest pain ?denies.?Atrial Fib.?admits.?Murmur/Palpitations?denies.?Gastrointestinal:?Hemorrhoids?denies.?Stomach/Abdominal pain?denies.?Dark blood stool?denies.?Irritable bowel ?denies.?Constipation?denies.?Diarrhea?denies.?Hematology:?Swelling?denies.?Clots?denies.?Varicose Veins?denies.?Bruising?denies.?Bleeding problem?denies.?Genitourinary:?Blood urine?denies.?Frequent/Painfu/urination/bladder control?denies.?Kidney stones?denies.?Infection (UTI)?denies.?Nephropathy?denies.?sex trans dis (STD)?denies.?Prostate?admits.?Musculoskeletal:?Hammertoes?denies.?Bunions?denies.?Back Pain?denies.?Muscle Cramps/ Resting?denies.?Muscle cramps / walking?denies.?Generalized aches and pains?denies.?Weakness?admits.?Integ.:?Murphy?denies.?Scars?denies.?Corns/calluses?denies.?Ingrown nails?denies.?Painful nails?admits.?Open Sores?denies.?Rashes?denies.?Neurologic:?Difficulty sleeping?denies.?Brain disorder?denies.?Numbness?admits.?Balance trouble?denies.?Confusion?denies.?Fainting/blackouts?denies.?Tingling?admits.?Tr emors?denies.? * Medical History:? * Surgical History:?CABG surge ry - 3 vessel 2004right max sinus cancer 2019right leg bypass graft 04/09/2022left leg bypass graft 07/04/2022, 07/06/2022 * Hospitalization/Major Diagno stic Procedure:?Denies Past Hospitalization * Family History:?Mother: dece ased, diagnosed with Unspecified heart disease, Unspecified essential hypertension.?Father: , diagnosed with Unspecified heart disease.? * Social History:?Tobacco Use:?Tobacco Use/Smoking?Are you a:?former smoker ?Additional Findings: Tobacco Non-User?Ex-cigarette smoker ?Tobacco use other than smoking?Are you an other tobacco user??Yes Cigars a couple a week ???Drugs/Alcohol:?Drugs?Have you used drugs other than those for medical reasons in the past 12 months??No ?Alcohol Screen?Did you have a drink containing alcohol in the past year??Yes ?How often did you have a drink containing alcohol in the past year??4 or more times a week (4 points) ?How often did you have 6 or more drinks on one occasion in the past year??Daily or almost daily (4 points) ?Points?8 ?Interpretation?Positive ???Miscellaneous:?Caffeine: yes, 2 cups coffee and 1 soda per day. ?Children: yes, 3. ?no Exercise. ?Marital status: . 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 * Medications:?TakingAcetamino phen 325 MG Tablet [...] Procedures:?Keratoma Treatment:?Parring or Cutting of Benign Hyperkeratotic Lesion(s)?54835 ( 2-4 Lesions ) - The Benign [...] DYSTROPHIC NAILS ANY #, Modifiers: XS , [id number] TRIM SKIN LESIONS, 2 TO 4, Modifiers: XS , Q8 * Follow Up:?2 Months * Images: * Sign off status: Completed true * Provider:?Ariadne Long DPM Date:?05/2024 Generated for Sera swenson/Joey/eTransmitting on:?07/03/2024 09:47 AM EST History and Physical Notes * [...]
--- OUTSIDE RECORDS SUMMARY | 2024-07-03 09:47 | XMS_ITS ---
Author Organization [facility] Address [address] [place] [address] Care Team Providers Care Trash Truck Driver Name Role Phone Darek Ronquillo MD Primary Care Provider Ariadne Doan Unavailable [phone] Allergies Allergen (clinical drug ingredient) Drug/Non Drug Allergy documented on EMR Reaction Allergy Type Onset Date Status hydromorphone Dilaudid hallucinations Drug Allergy Active tramadol traMADol HCl hallucinations Drug Allergy Active REASON FOR VISIT At Risk Footcare, Painful Nail(s) aggrevated by shoes and causing difficulty standing/walking. Medications Medication SIG (Take, Route, Frequency, Duration) Notes Start Date End Date Status Atorvastatin Calcium 40 MG 1 tablet Oral ly Once a day for 30 day(s) Active Bumetanide 2 MG 1 tablet Orally Once a day for 30 day(s) Active Vitamin D3 Active Dutasteride 0.5 MG 1 capsule Orally Onc e a day for 30 day(s) Active Fenofibrate [...] as needed Orally every 4 hrs Active Amiodarone HCl 200 MG 1 tablet Orally On ce a day for 30 day(s) Active Digoxin 125 MCG 1 tablet Orally Active PreserVision AREDS 2 Active Social History Tobacco Use: Social History [...] Signs Height 5 ft 11 in in 04/29/2024 Weight 180 lbs 04/29/2024 BMI 25.1 kg/m2 04/29/2024 Blood pressure systolic 121 mm Hg 04/29/20 24 Blood pressure diastolic 68 mm Hg 024 Encounters Encounter Location Date Provider Diagnosis [facility] [address] [address] 04/29/2024 Ariadne Long Atherosclerosis of artery of both lower extremities I70.203 Assessments Encounter Date Diagnosis (ICD Code) Assessment Notes Treatment Notes Treatment Clinical Notes Section Notes 04/29/2024 Atherosclerosis of artery of both lower extremities (ICD-10 - I70.203) Plan Of Treatment Next Appt Details Follow Up: 2 Months, Reason: Provider Name:Ariadne ordoñez, 07/21/2024 03:15:00 PM, [address] [place] [address], [phone], Procedure Notes * Category Sub-Category Detail Notes Keratoma Treatment Parring or Cutting o f Benign Hyperkeratotic Lesion(s) (-57) More than 4 Lesions - The Benign hyperkeratotic lesions, as described above were pared, and/or cut utilizing a sterile 15 blade, tissue nippers, and/or dremel - 81718, Q8 Nail Reduction Nail Reduction Trimming of dyst rophic nails performed to reduce/remove overall nail length and girth, by manual and electrical means with use of a nail nipper and/or dremel, to more viable healthy nail plate or bed tissue 6-10 (R8647-Y6) Progress Notes * Hector DIAZ HDOB:1945 (79 yo M)Acc No.[id number]:04/29/2024 Progress Note Patient:?Dugroo, Hector H Provider:?Ariadne Long DPM :1945???Age:79 Y???Sex:Male Fred e:04/29/2024 Address:[address] [place] [address] Chivo Otero [facility] Pcp:Darek Ronquillo MD Subjective: * Chief Complaints: * ???At Risk FootcarePainful N ail(s) aggrevated by shoes and causing difficulty standing/walking. * HPI: ???At Risk footcare:?Pt States Last PCP Visit:?Date?04/20/2024 * ROS:?General/Constitutional:?Nausea?denies.?Vomiting?denies.?Hunger Thirst?denies.?Loss appetite?denies.?Chills?denies.?Fatigue?denies.?Fever?denies.?Night Sweats?denies.?Unexplained weight loss?denies.?Unexplained [...] 3. ?no Exercise. ?Marital status: . 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 * Medications:?TakingPreserVis ion AREDS 2 Digoxin 125 MCG Tablet 1 tablet Orally Acetaminophen 325 MG Tablet 1 tablet as [...] List reviewed and reconciled with the patientTaking PreserVision AREDS 2 Taking Digoxin 125 MCG Tablet 1 tablet Orally Taking Acetaminophen 325 MG Tablet 1 tablet as [...] 180, BMI: 25.1, Shoe size: 10.5-11, BP: 121/68 mm Hg, Wt-k.65 kg. * Examination: ???Vascular: ?DP PULSES(B):? 0/4, B/L.?PT PULSES(B):? 0/4, B/L.?CAPILLARY FILL TIME:? delayed, all digits, B/L.?TROPHIC CONDITION-TEXTURE/ELASTICITY/TURGOR/HAIR GROWTH(B):? decreased, B/L.?TEMPERTURE GRADIENT(C):? decreased, cool to cool, proximal to distal, B/L.?PIGMENTATION:? pale, B/L.?EDEMA(C):? 2/4 pitting B/L Ankle(s) Feet.?Nails: ?NAILS are:? Elongated, overgrown, dystrophic 1-5 B/L.?Dermatologic: ?SKIN FINDINGS:?Skin exam reveals Keratotic lesion(s) located at , Heel(s) , Left , TA , T5 , SUB MTH (s) , 5 , B/L , Heel(s) , B/L.?Neurological: ?SENSORY:?Neurological exam reveals intact sensorium, pain sensation normal, vibration sensation intact, pinprick sensation is normal in the lower extremities, Pt denies, anesthesia, burning, paresthesia, tingling, B/L.? Assessment: * Assessment: 1.?Atherosclerosis of artery of both lower extremities - I70.203 (Primary)? Plan: * Treatment: * Procedures:?Keratoma Treatment:?Parring or Cutting of Benign Hyperkeratotic Lesion(s)?(-57) More than 4 Lesions - The Benign hyperkeratotic lesions, as described above were pared, and/or cut utilizing a sterile 15 blade, tissue nippers, and/or dremel - 09899, Q8.?Nail Reduction:?Nail Reduction?Trimming of dystrophic nails performed to reduce/remove overall nail length and girth, by manual and electrical means with use of a nail nipper and/or dremel, to more viable healthy nail plate or bed tissue 6-10 (G0127- Q8).? * Procedure Codes:?G0127 WANDA ING DYSTROPHIC NAILS ANY #, Modifiers: XS , [id number] TRIM SKIN LESIONS, OVER 4, Modifiers: XS , Q8 * Follow Up:?2 Months * Images: * Sign off status: Completed true * Provider:?Ariadne Long DPM Date:? Generated for Sera swenson/Joey/Javier on:?07/03/2024 09:46 AM EST History and Physical Notes * HPI (History of Present Illness) Category Sub-Category Detail Notes Category Not es At Risk footcare Pt States Last PCP Visit: Date: 4 Examination Category Sub-Category Detail Notes Category Not es Neurological SENSORY: Neurological exa m reveals intact sensorium, pain sensation normal, vibration sensation intact, pinprick sensation is normal in the lower extremities, Pt denies, anesthesia, burning, paresthesia, tingling, B/L Dermatologic SKIN FINDINGS: Skin exam reveal s Keratotic lesion(s) located at , Heel(s) , Left , TA , T5 , SUB MTH (s) , 5 , B/L , Heel(s) , B/L Vascular DP PULSES (B): 0/4, B/L PT PULSES (B): 0/4, B/L CAPILLARY FILL TIME: delayed, all digits , B/L TEMPERTURE GRADIENT (C): decreased, cool to cool, proximal to distal, B/L TROPHIC CONDITION-TEXTURE/ELASTICITY/TURGOR/HAIR GROWTH (B): decreased, B/L EDEMA (C): 2/4 pitting B/L Ankl e(s) Feet PIGMENTATION: pale, B/L Nails NAILS are: Elongated, overgrown, dystro phic 1-5 B/L
--- OUTSIDE RECORDS SUMMARY | 2024-07-03 09:47 | XMS_ITS | Patient Health Record ---
Author Organization [facility] Address [address] [place] [address] Care Team Providers Care Repair Armature Winder Helper Name Role Phone Darek Ronquillo MD Primary Care Provider Lillia Ariadne Arthur Unavailable [phone] Allergies Allergen (clinical drug ingredient) Drug/Non Drug Allergy documented on EMR Reaction Allergy Type Onset Date Status hydromorphone Dilaudid hallucinations Drug Allergy Active tramadol traMADol HCl hallucinations Drug Allergy Active Reason For Referral No Information Medications Medication SIG (Take, Route, Frequency, Duration) [...] Digoxin 125 MCG 1 tablet Orally Active Atorvastatin Calcium 40 MG 1 tablet Oral ly Once a day for 30 day(s) Active PreserVision AREDS 2 Active Bumetanide 2 MG 1 tablet Orally [...] Yes C igars a couple a week Problems Problem Type SNOMED Code ICD Code Onset Dates Problem Status W/U Status Risk Notes Problem [id number] Atherosclerosi s of artery of both lower extremities (I70.203) Active confirmed Problem 116423379 Skin ulcer of le ft heel, limited to breakdown of skin (L97.421) Active confirmed Vital Signs Blood pressure diastolic 68 mm Hg 04/29/2024 Height 5 ft 11 in in 04/29/2024 Blood pressure systolic 121 mm Hg 04/29/2024 Weight 180 lbs 04/29/2024 BMI 25.1 kg/m2 04/29/2024 Encounters Encounter Location Date Provider Diagnosis [address] [address] 08/09/2023 Ariadne Perica Atherosclerosis of artery of both lower extremities I70.[address] [address] 10/15/2023 Raiadne Perica Atherosclerosis of artery of both lower extremities I70.[address] [address] 12/17/2023 Ariadne Perica Atherosclerosis of artery of both lower extremities I70.[address] [address] 02/25/2024 Ariadne Perica Atherosclerosis of artery of both lower extremities I70.[address] [address] 04/29/2024 Ariadne Perica Atherosclerosis of artery of both lower extremities I70.203 Assessments Encounter Date Diagnosis (ICD Code) Assessment Notes Treatment Notes Treatment Clinical Notes Section Notes 08/09/2023 Atherosclerosis of artery of both lower extremities (ICD-10 - I70.203) 10/15/2023 Atherosclerosis of artery of both lower extremities (ICD-10 - I70.203) 12/17/2023 Atherosclerosis of artery of both lower extremities (ICD-10 - I70.203) 02/25/2024 Atherosclerosis of artery of both lower extremities (ICD-10 - I70.203) 04/29/2024 Atherosclerosis of artery of both lower extremities (ICD-10 - I70.203) Plan Of Treatment Next Appt Details Provider Name:Ariadne ordoñez, 07/21/2024 03:15:00 PM, [address] [place], [address], Insurance Providers Payer Name Payer Address Payer Phone Subscriber Number Group Number Insured Name Patient Relationship to Insured Coverage Start Date Coverage End Date [employer] [place] [employer]vantage [facility] [address] [place] [address] [id number] Hector Diaz Self - patient is the insured Medical (General) History Medical History History ICD Code Anemia CAD (Cholesterol) Cancer, sinus Cataracts covid-19 Heart disease High blood pressure COPD Poor circulation Reflux ( GERD) chronic sinusitis Measles Mumps Chicken pox Vascular grafts Transfusions Surgical History Surgery Date(Month/Year) CABG surgery - 3 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
[2024-07-03 09:48] LABS: MANUAL DIFF FLAG NO
--- OUTSIDE RECORDS SUMMARY | 2024-07-03 09:48 | XMS_ITS | Patient Health Record ---
Author Organization [facility] Address [address] [place] [address] Care Team Providers Care Electronic Device Monitor Name Role Phone Darek Ronquillo MD Primary Care Provider Soren Jaimes Jr Unavailable [phone] REASON FOR REFERRAL No Information SOCIAL HISTORY Sex Assigned At : Social History Observation Description Sex Assigned At Unknown PROBLEMS Problem Type ICD Code Onset Dates Problem Status W/U Status Risk SNOMED Code Notes Problem Gastritis (K29.70) Active confirmed Gastritis (4636121) Encounters Encounter Location Date Provider [place] [facility] [place] [address] [place], [place] [id number] 09/06/2023 Soren Boothe Jr [facility] [address] [facility] [address] [place] [address] 11/01/2023 Soren Boothe Jr Anemia, unspecified type D64.9 [facility] [address] [place] [address] 11/05/2023 Soren Boothe Jr ASSESSMENTS Encounter Date Diagnosis Assessment Notes Treatment Notes Treatment Clinical Notes 11/01/2023 Anemia, unspecified type (ICD-10 - D64.9) PLAN OF TREATMENT Future Test Test Name Order Date VIDEO CAPSULE ENDOSCOPY 11/01/2023 Insurance Providers Payer Name Payer Address Payer Phone Subscriber Number Group Number Insured Name Patient Relationship to Insured Coverage Start Date Coverage End Date [facility] [address] [facility] [place] [address] [phone] [id number] STEFFEN ANTHONY Self - patient is the insured
--- OUTSIDE RECORDS SUMMARY | 2024-07-03 09:48 | XMS_ITS ---
Author Organization [facility] Address [address] [place] [address] Care Team Providers Care Spot Worker Name Role Phone Darek Ronquillo MD Primary Care Provider Unavaila Soren Mckoy Jr [phone] REASON FOR VISIT anemia Encounters Encounter Location Date Provider [place] [facility] [place] [address] [place] [phone] 09/06/2023 Soren Boothe Jr PLAN OF TREATMENT No Information
--- OUTSIDE RECORDS SUMMARY | 2024-07-03 09:48 | XMS_ITS ---
Author Organization [facility] Address [address] [place] [address] Care Team Providers Care Tool Rental Technician Name Role Phone Darek Ronquillo MD Primary Care Provider UnavailSoren Borges Jr Unavailable [phone] REASON FOR VISIT [facility] [place] Encounter Location Date Provider Diagnosis [facility] [address] [place] [address] 11/01/2023 Soren Boothe Jr Anemia, unspecified type D64.9 ASSESSMENTS Encounter Date Diagnosis Assessment Notes Treatment Notes Treatment Clinical Notes 11/01/2023 Anemia, unspecified type (ICD-10 - D64.9) PLAN OF TREATMENT Future Test Test Name Order Date VIDEO CAPSULE ENDOSCOPY 11/01/2023
[2024-07-03 11:05] LABS: Basophils Percent Auto 0.7 % (0-2); Eosinophils Absolute Auto 0.1 X10*3/uL (0.0-0.4); Eosinophils Percent Auto 1.2 % (0-4); Hematocrit 27.6 % (42.0-52.0); Hemoglobin 8.6 g/dl (14.0-18.0); Imm Gran Abs Auto 0.03 X10*3/uL (0.00-0.03); Imm Gran Pct Auto 0.5 % (0.0-0.4); Lymphocytes Absolute Auto 1.1 X10*3/uL (1.2-4.9); Lymphocytes Percent Auto 18.4 % (20-40); Mean Corpuscular HGB Conc 31.2 g/dl (31.0-36.0); Mean Platelet Volume 10.7 fL (9.4-12.4); Monocytes Absolute Auto 0.8 X10*3/uL (0.1-1.2); Neutrophils Absolute Auto 3.8 x10*3/uL (2.0-8.3); Neutrophils Percent Auto 65.2 % (45-73); Platelet Count 251 X10*3/uL (160-400); Red Blood Count 2.46 X10*6/uL (4.60-5.80); Red Cell Distribution Width 15.5 % (11.0-16.0); White Blood Count 5.8 X10*3/uL (4.8-10.8)
[2024-07-03 11:08] LABS: Mean Corpuscular Volume 112.2 fL (80.0-98.0)
[2024-07-03 11:44] LABS: Alanine Aminotransferase 7 U/L (0-40); Albumin Level 3.4 g/dL (3.5-5.0); Alkaline Phosphatase 51 U/L (39-117); Anion Gap 12 (12-20); Aspartate Amino Transferase 31 U/L (5-37); Bilirubin Total 0.4 mg/dL (0.0-1.0); Blood Urea Nitrogen 12 mg/dL (9-16); Calcium 9.2 mg/dL (8.4-10.2); Carbon Dioxide 28 mmol/L (22-29); Chloride 104 mmol/L (96-108); Estimated Glomerular Filt Rate > 60; Glucose Random 115 mg/dL (60-115); Potassium 3.9 mmol/L (3.3-5.1); Sodium 140 mmol/L (135-145); Total Protein 6.7 g/dL (6.5-8.0)
== END 2024-07-03 09:28 | disposition home or self-care (01) ==
LOC: HO.LAB 09:27
PROVIDERS: PCP Internal Medicine; Visit Provider Internal Medicine
DX: I48.91 Unspecified atrial fibrillation (principal); I12.9 Hypertensive chronic kidney disease with stage 1 through stage 4 chronic kidney disease, or unspecified chronic kidney disease; N18.9 Chronic kidney disease, unspecified; I13.0 Hypertensive heart and chronic kidney disease with heart failure and stage 1 through stage 4 chronic kidney disease, or unspecified chronic kidney disease; I25.10 Atherosclerotic heart disease of native coronary artery without angina pectoris
CPT/HCPCS: 36415; 80053; 85025

== ENCOUNTER 2024-09-29 12:25 | Outpatient (REF) | payer MEDICARE, SELFPAY ==
[2024-09-29 14:22] LABS: Digoxin 0.6 ng/mL (0.8-2.0)
== END 2024-09-29 12:26 | disposition home or self-care (01) ==
LOC: HO.LAB 12:25
PROVIDERS: PCP Internal Medicine; Visit Provider Internal Medicine Cardiovascular Disease
DX: I48.20 Chronic atrial fibrillation, unspecified (principal); I50.30 Unspecified diastolic (congestive) heart failure; I25.10 Atherosclerotic heart disease of native coronary artery without angina pectoris; Z79.01 Long term (current) use of anticoagulants; Z79.899 Other long term (current) drug therapy
CPT/HCPCS: 36415; 80162; 99212

== ENCOUNTER 2024-09-29 12:25 | Outpatient (AMB) | payer MEDICARE, SELFPAY ==
[2024-09-29 12:27] VITALS: BP 116/68; PULSE 88; BMI 24.9
--- NOTE | 2024-09-29 12:27 | MHC.OFFVIS ---
Vital Signs 09/29/24 12:27 Height 5 ft 11 in Weight 178 lb 9.191 oz BMI 24.9 BP 116/68 Blood Pressure Location Lt brachial Position Sitting Pulse 88 Intake Visit Reasons: 6m follow up Intake Note: 6 month follow-up feeling good Software Applications Developer Required: No Hob Machine Operator: Hob Machine Operator Present Accompanied by: Spouse Allergies hydromorphone [From Dilaudid] Adverse Reaction (Verified 09/03/24 09:16) Confusion Medication List - Last Reconciled 09/29/24 by Rudi Mccoy MD atorvastatin 40 mg PO DAILY@1700 bumetanide 2 mg PO BID@0700,1700 90 days cholecalciferol (vitamin D3) 10 mcg PO DAILY@0700 digoxin 125 mcg PO DAILY dutasteride (Avodart) 0.5 mg PO DAILY@1700 fenofibrate nanocrystallized 145 mg PO DAILY@0700 ferrous sulfate 325 mg PO BID@0700,1700 metoprolol succinate ER 25 mg PO QPM midodrine 2.5 mg PO TID omeprazole 20 mg PO DAILY potassium chloride ER 20 mEq PO DAILY rivaroxaban (Xarelto) 20 mg PO BEDTIME vit C,V-Id-steub-lutein-zeaxan 250-90-40-1 mg (PreserVision AREDS-2) 1 tab PO BID@1200,1700 HPI Comments Details: Hector comes for follow-up. Patient has been doing well. No hospitalization last 6 months. Has been diuresing well bumetanide. No significant leg edema. No weight gain. No orthopnea, PND. No worsening shortness of breath. Exercise and remains independent but not on a regular basis. Denies any prolonged palpitation irregular heartbeat. No bleeding issues or neurologic events. No lightheadedness, syncope. [facility] Medical History Anemia Acute congestive heart failure Acute upper gastrointestinal bleeding Acute blood loss anemia COPD (chronic obstructive pulmonary disease) Hyperlipidemia Afib Nasal sinus tumor CAD (coronary artery disease) Surgical History Hx of CABG Social History Household Members: Spouse Housing: House Do you presently have visiting nurse or other home services: No Alcohol intake: current Alcohol intake frequency: holidays/special occasions only Alcohol type: beer Patient Tobacco Use Status: Former Tobacco user Tobacco use type: Cigar Advance Directives Date on File: 02/16/22 service: No Current occupational status: retired Review of Systems Const Denies chills, Denies fatigue, Denies fever(s), Denies frequent falls, Denies weakness, Denies weight gain and Denies weight loss ENT Denies dizziness Card Denies chest pain, Denies leg edema, Denies lightheadedness, Denies palpitations, Denies dyspnea, Denies dyspnea on exertion, Denies orthopnea and Denies other (loss of consciousness) Resp Denies cough, Denies dyspnea and Denies dyspnea on exertion GI Denies hematochezia and Denies change in stool character Musc Denies abnormal gait, Denies muscle weakness, Denies numbness, Denies radiating pain into limb and Denies tingling Neuro Denies abnormal gait, Denies dizziness, Denies frequent falls, Denies numbness, Denies tingling and Denies weakness Endo Denies fatigue and Denies palpitations Physical Exam Vital Signs: Last Vital Signs Pulse 88 09/29/24 12:27 BP 116/68 09/29/24 12:27 BMI result Body Mass Index 24.9 Const General: cooperative, comfortable, no acute distress, alert, awake and tired appearing Nutritional Appearance: well nourished and other (Frail) Orientation/consciousness: patient oriented x3 Limitations: no limitations Neck Neck: Yes trachea midline, Yes supple and Yes no JVD Chest Chest palpation & inspection: normal inspection of the chest Resp Effort & Inspection: normal respiratory effort Auscultation: wheezes expiratory wheezes and lower bilaterally Cardio Jugular venous distension: no JVD Rate: regular rate Rhythm: abnormal rhythm irregularly irregular Heart sounds: S1 normal heart sound present, S2 normal heart sound present, no click, no gallops and no murmurs GI Auscultation: normal bowel sounds Skin General skin exam: no rashes or lesions noted and ecchymosis Neuro General: patient oriented x3 and no focal motor deficits Extrem General: No clubbing, No cyanosis and Yes edema (Right 2 to 3+, greater than left 1+) Assessment & Plan Assessment & Plan (1) (HFpEF) heart failure with preserved ejection fraction: Code(s): I50.30 - Unspecified diastolic (congestive) heart failure Category: Medical Plan: Heart failure preserved ejection fraction with multiple comorbidities including advancing age with frailty, chronic atrial fibrillation, anemia. Clinically euvolemic and well compensated current diuretic dose. Continue the same. Importance of diuretic therapy was discussed with him again. Daily weight monitoring avoidance salt loading was discussed. Additional diuretics as need be. Continue aggressive rate control approach, see below. He understands management well. Goals of therapy were discussed. Encouraged to maintain activity level as tolerated. Blood pressure is optimized on current midodrine therapy. Tolerating low-dose metoprolol therapy. Can not uptitrate other medications due to low blood pressure and orthostatic intolerance. (2) Chronic atrial fibrillation: Code(s): I48.20 - Chronic atrial fibrillation, unspecified Category: Medical Plan: Chronic rate control atrial fibrillation. Continue rate control with digoxin as well as metoprolol. Digoxin assay should be performed every 6 months. Requesting it today. Continue full oral anticoagulation, currently on Xarelto 20 mg daily. Quarterly renal function test should be pursued. If there is significant anemia due to blood loss may need to consider alternative therapies. (3) CAD (coronary artery disease): Code(s): I25.10 - Atherosclerotic heart disease of [place] coronary artery without angina pectoris Category: Medical Plan: CAD with remote coronary artery bypass grafting without any symptoms of angina at current point time. Continue full oral anticoagulation Xarelto and avoid aspirin therapy. Continue blood pressure control. Continue lipid modification with goal LDL less than 70 mg/dL. Will follow up in the clinic in 6 months time, sooner p.r.n.. Thank you for allowing me to partake in his care Orders: Orders Digoxin Today I48.20 - Chronic atrial fibrillation, unspecified Medications: Changed From digoxin 125 mcg PO DAILY 90 tabs 3RF To digoxin non on SAT and SAT 125 mcg PO DAILY Coding Level of Care Code Est Pt Level 4 (76694) Complex EM visit Add On G2211 Diagnoses (HFpEF) heart failure with preserved ejection fraction I50.30 Chronic atrial fibrillation I48.20 CAD (coronary artery disease) I25.10
--- OUTSIDE RECORDS SUMMARY | 2024-09-29 15:04 | XMS_ITS ---
Author Organization [facility] Address [address] [place] [address] Care Team Providers Care Truck Assembler Name Role Phone Darek Ronquillo MD Primary Care Provider Soren Jaimes Jr REASON FOR VISIT Capsule Encounters Encounter Location Date Provider Diagnosis [facility] [address] [place] [address] 11/05/2023 Soren Boothe Jr Plan Of Treatment No Information Progress Notes * STEFFEN ANTHONYDOB:1945 ( 78 yo M)Acc No.[id number]:11/05/2023 Patient:?NENARISHIANDREWCOURTIC :1945???Age:78 Y???Sex:Male Address:[address] [place] [address] [place], [address] * true * Date:? Generated for Sera swenson/Joey/eTransmitting on:?09/29/2024 03:04 PM EDT
--- OUTSIDE RECORDS SUMMARY | 2024-09-29 15:04 | XMS_ITS | Patient Health Record ---
Author Organization [facility] Address [address] [place] [address] Care Team Providers Care Manager Nuclear Name Role Phone Darek Ronquillo MD Primary Care Provider Soren Jaimes Jr Unavailable Allergies No Known Allergies Reason For Referral No Information Medications Medication SIG (Take, Route, Frequency, Duration) Notes Start Date End Date Status Midodrine HCl 2.5 MG Oral for 90 Active Metoprolol Succinate ER 25 MG TAKE 1 TABLET BY MOUTH EVERY EVENING Oral for 90 Active Dutasteride 0.5 MG Oral for 90 Active Digoxin 125 MCG Oral for 90 Ac tive Bumetanide 2 MG Oral for 90 Ac tive Ferrous Sulfate 325 (65 Fe) MG 1 tablet Orally Three times a Week for 30 day(s) Active Vitamin D-3 25 MCG (1000 UT) 1 capsule Orally Once a day for 30 day(s) Active Fenofibrate 145 MG Oral for 90 Active Atorvastatin Calcium 40 MG Oral for 90 Active Xarelto 20 MG TAKE 1 TABLET BY MARQUEZ TH AT BEDTIME Oral for 90 Active Potassium Chloride ER 20 MEQ Oral for 90 Active Omeprazole 20 MG TAKE 1 CAPSULE BY MO UTH EVERY DAY Oral for 90 Active Immunizations Vaccine Route Administration Date Status Comme nts Influenza Unknown 03/31/2024 Administered Social History Tobacco Use: Social History Observation Description Date Details (start date - stop date) Never Smoker NA - NA Tobacco Use/Smoking Question Answer Notes Patient is a nonsmoker Alcohol Screen Question Answer Notes Did you have a drink contain ing alcohol in the past year? Yes How often did you have a dri nk containing alcohol in the past year? 4 or more times a week (4 points) How many drinks did you have on a typical day when you were drinking in the past year? 1 or 2 drinks (0 point) How often did you have 6 or more drinks on one occasion in the past year? Never (0 point) Points 4 Interpretation Positive Problems Problem Type SNOMED Code ICD Code Onset Dates Problem Status W/U Status Risk Notes Problem Gastritis (3257561) Gastritis (K29.70) Active confirmed Problem 350409199 Anemia, unspecified type (D64.9) Active confirmed Vital Signs Temperature 97.5 degrees Fahrenheit 08/10/2024 Blood pressure diastolic 00 mm Hg 08/10/2024 Height 5 ft 11 in in 08/10/2024 Blood pressure systolic 000 mm Hg 08/10/2024 Weight 180 lbs 08/10/2024 BMI 25.10 kg/m2 08/10/2024 Encounters Encounter Location Date Provider Diagnosis [facility] [address] [place] [id number] 08/10/2024 Soren Boothe Jr Anemia, unspecified type D64.9 [facility] [address] [place] [phone] 11/01/2023 Soren Boothe Jr Anemia, unspecified type D64.9 [facility] [address] [place] [phone] 11/05/2023 Soren Boothe Jr [facility] [address] [place] [phone] 08/04/2024 Soren Boothe Jr Assessments Encounter Date Diagnosis (ICD Code) Assessment Notes Treatment Notes Treatment Clinical Notes Section Notes 08/10/2024 Anemia, unspecified type (ICD-10 - D64.9) Anemia of chronic disease material was printed We discussed anemia. We discussed GI causes for anemia. We discussed upper and lower GI causes. We reviewed his EGD results and will obtain his colonoscopy report. We discussed capsule endoscopy. He declines repeat EGD which I think is likely to be low yield and capsule endoscopy today. He will continue to followup with hematology oncology. 11/01/2023 Anemia, unspecified type (ICD-10 - D64.9) Plan Of Treatment Future Test Test Name Order Date VIDEO CAPSULE ENDOSCOPY 11/01/2023 Insurance Providers Payer Name Payer Address Payer Phone Subscriber Number Group Number Insured Name Patient Relationship to Insured Coverage Start Date Coverage End Date [facility] [address] [place], [place] [id number] [phone] [id number] STEFFEN ANTHONY Self - patient is the insured Medical (General) History Medical History History ICD Code Hypotension Coronary artery disease with heart failu re/preserved ejection fraction Atrial fibrillation Anemia Right maxillary sinus tumor, surgery at [facility] General Surgical History Surgery Date(Month/Year) Coronary artery bypass grafting
--- OUTSIDE RECORDS SUMMARY | 2024-09-29 15:04 | XMS_ITS ---
Author Organization [facility] Address [address] [place] [address] Care Team Providers Care Outside Salesperson Name Role Phone Darek Ronquillo MD Primary Care Provider Soren Jaimes Jr Unavailable Allergies No Known Allergies REASON FOR VISIT Patient presents today for anemic Medications Medication SIG (Take, Route, Frequency, Duration) Notes Start Date End Date Status Midodrine HCl 2.5 MG Oral for 90 Active Metoprolol Succinate ER 25 MG TAKE 1 TABLET BY MOUTH EVERY EVENING Oral for 90 Active Vitamin D-3 25 MCG (1000 UT) 1 capsule Orally Once a day for 30 day(s) Active Fenofibrate 145 MG Oral for 90 Active Atorvastatin Calcium 40 MG Oral for 90 Active Dutasteride 0.5 MG Oral for 90 Active Digoxin 125 MCG Oral for 90 Ac tive Xarelto 20 MG TAKE 1 TABLET BY MARQUEZ TH AT BEDTIME Oral for 90 Active Potassium Chloride ER 20 MEQ Oral for 90 Active Omeprazole 20 MG TAKE 1 CAPSULE BY MO UTH EVERY DAY Oral for 90 Active Bumetanide 2 MG Oral for 90 Ac tive Ferrous Sulfate 325 (65 Fe) MG 1 tablet Orally Three times a Week for 30 day(s) Active Social History Tobacco [...] Problem Status W/U Status Risk Notes Problem [id number] Anemia, unspecified type (D64.9) Active confirmed Vital Signs Temperature 97.5 degrees Fahrenheit 08/10/19 25 Blood pressure systolic 000 mm Hg 08/10/19 25 Blood pressure diastolic 00 mm Hg 025 Height 5 ft 11 in in 08/10/2024 Weight 180 lbs 08/10/2024 BMI 25.10 kg/m2 08/10/2024 Encounters Encounter Location Date Provider Diagnosis [facility] [address] [place] [address] 08/10/2024 Soren Boothe Jr Anemia, unspecified type D64.9 Assessments Encounter Date Diagnosis (ICD Code) Assessment [...] will continue to followup with hematology oncology. Plan Of Treatment Treatment Notes Assessment Notes Anemia, unspecified type Anemia of chron ic disease material was printed Next Appt Details Follow Up: 1 Year, Reason: Progress Notes * NENAMARCO A STEFFENDOB:1945 ( 79 yo M)Acc No.[id number]:08/10/2024 Progress Notes Patient:?COURT ANTHONYIC Provider:?Soren Boothe MD :1945???Age:79 Y???Sex:Male Fred e:08/10/2024 Address:[address] [place], [place] [id number] Pcp:Darek Ronquillo MD Subjective: * Chief Complaints: * ???1. Patient presents today for anemic. * HPI: ???New symptom(s):? The patient is a pleasant 79-year-old man seen today in consultation. He was admitted to the hospital in August of last year with anemia and underwent upper endoscopy which was basically normal. He had undergone colonoscopy in 3 months prior to this. ?Following discharge, outpatient capsule endoscopy was planned over the patient canceled this because he did not wish to go through this. ?He was seen last week in the hematology/oncology clinic by Dr. Shanks, and had blood work done showing a hemoglobin of 8.2 with a hematocrit of 26. He received one unit of packed red blood cells and has followup scheduled later this month. He has not seen any blood in his stools although they are dark because he is taking iron. He continues on omeprazole for gastroesophageal reflux. He is also taking Xarelto. He has not required blood transfusion since his hospitalization last year. We reviewed this today. * ROS:?General/Constitutional:?Change in appetite?denies.?Fatigue?denies.?ENT:?Patient denies?difficulty swallowing.?Respiratory:?Patient denies?shortness of breath.?Cardiovascular:?Patient denies?chest pain.?Gastrointestinal:?Comments?See HPI for details.?Genitourinary:?Difficulty urinating?denies.?Incontinence?denies.?Musculoskeletal:?Patient denies?muscle aches.?Skin:?Patient denies?pruritis.?Neurologic:?Patient denies?low back pain.?Psychiatric:?Patient denies?mental or physical abuse.? 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 * Surgical History:?Coronary a rtery bypass grafting . * Family History:?Father: dece ased.?Mother: .? No family history of colon cancer or liver cancer. * Social History:?Tobacco Use:?Tobacco Use/Smoking?Patient is a?nonsmoker.?Drugs/Alcohol:?Alcohol Screen?Did you have a drink containing alcohol in the past year??Yes,?How often did you have a drink containing alcohol in the past year??4 or more times a week (4 points),?How many drinks did you have on a typical day when you were drinking in the past year??1 or 2 drinks (0 point),?How often did you have 6 or more drinks on one occasion in the past year??Never (0 point),?Points?4,?Interpretation?Positive.?Miscellaneous:?Marital status: . Occupation: retired. * Medications:?Taking Vitamin D-3 25 MCG (1000 UT) Capsule 1 capsule Orally Once a day, Taking Ferrous Sulfate 325 (65 Fe) MG Tablet 1 tablet Orally Three times a Week, Taking Bumetanide 2 MG Tablet Oral , Taking Xarelto 20 MG Tablet TAKE 1 TABLET BY MOUTH AT BEDTIME Oral , Taking Omeprazole 20 MG Capsule Delayed Release TAKE 1 CAPSULE BY MOUTH EVERY DAY Oral , Taking Potassium Chloride ER 20 MEQ Tablet Extended Release Oral , Taking Digoxin 125 MCG Tablet Oral , Taking Dutasteride 0.5 MG Capsule Oral , Taking Metoprolol Succinate ER 25 MG Tablet Extended Release 24 Hour TAKE 1 TABLET BY MOUTH EVERY EVENING Oral , Taking Midodrine HCl 2.5 MG Tablet Oral , Taking Atorvastatin Calcium 40 MG Tablet Oral , Taking Fenofibrate 145 MG Tablet Oral , Medication List reviewed and reconciled with the patient * Allergies:?N.K.D.A. Objective: * Vitals:?Wt: 180 lbs, Ht: 5 f t 11 in, BMI:25.10 Index, BP: 000/00 mm Hg, Temp: 97.5. * Examination: ???General Examination: ?GENERAL APPEARANCE:?in no acute distress.?HEAD:?normocephalic.?EYES:?sclera non-icteric.?ORAL CAVITY:?mucosa moist.?NECK/THYROID:?no lymphadenopathy.?SKIN:?anicteric.?HEART:?S1, S2 normal, no murmurs.?LUNGS:?clear to auscultation bilaterally.?CHEST:?normal shape and expansion.?ABDOMEN:?soft, nontender, nondistended, bowel sounds present, no organomegaly .?EXTREMITIES:?no clubbing, cyanosis, or edema.?PSYCH:?cognitive function intact.? Assessment: * Assessment: 1.?Anemia, unspecified type - D64.9 (Primary)? We discussed anemia. We disc ussed GI causes for anemia. We discussed upper and lower GI causes. We reviewed his EGD results and will obtain his colonoscopy report. We discussed capsule endoscopy. He declines repeat EGD which I think is likely to be low yield and capsule endoscopy today. He will continue to followup with hematology oncology. Plan: * Treatment: * Procedure Codes:?G9903 Pt sc rn tbco id as non user, G9745 DOC RSN FOR NOT SCREEN/REC F/U HBP * Preventive Medicine:? ??Counseling:?Care goal follow-up plan:?Above Normal BMI Follow-up?Giving encouragement to exercise,?BMI management provided?Yes.? ??Screenings:?Fall Risk Screening?Fall Risk Assessment:?One fall without injury in the past year,?Screening:?One fall without injury in the past year,?Assessment:?Not performed, no reason specified,?Plan of Care:?Documented,?Type of fall plan of care:?Balance, strength and gait training or instruction provided.? * Follow Up:?1 Year * * Sign off status: Completed true * Provider:?Soren Boothe MD Date:?0 08/10/2024 Generated for Sera swenson/Joey/Javier on:?09/29/2024 03:04 PM EDT History and Physical Notes * HPI (History of Present Illness) Category Sub-Category Detail Notes Category Not es New symptom(s) The patient is a pleasant 79-year-old man seen today in consultation. He was admitted to the hospital in August of last year with anemia and underwent upper endoscopy which was basically normal. He had undergone colonoscopy in [place] 3 months prior to this. Following discharge, outpatient capsule endoscopy was planned over the patient canceled this because he did not wish to go through this. He was seen last week in the hematology/oncology clinic by Dr. Shanks, and had blood work done showing a hemoglobin of 8.2 with a hematocrit of 26. He received one unit of packed red blood cells and has followup scheduled later this month. He has not seen any blood in his stools although they are dark because he is taking iron. He continues on omeprazole for gastroesophageal reflux. He is also taking Xarelto. He has not required blood transfusion since his hospitalization last year. We reviewed this today. Examination Category Sub-Category Detail Notes Category Not es General Examination GENERAL APPEARANCE: in no acute di stress HEAD: normocephalic EYES: sclera non-icteric NECK/THYROID: no lymphadenopathy HEART: S1, S2 normal, no mu rmurs CHEST: normal shape and exp ansion LUNGS: clear to auscultatio n bilaterally ABDOMEN: soft, nontender, non distended, bowel sounds present, no organomegaly SKIN: anicteric EXTREMITIES: no clubbing, cyanosi s, or edema PSYCH: cognitive function i ntact ORAL CAVITY: mucosa moist
--- OUTSIDE RECORDS SUMMARY | 2024-09-29 15:05 | XMS_ITS ---
Author Organization [facility] [place] Address [address] [place] [address] Care Team Providers Care Patient Care Assistant Name Role Phone Darek Ronquillo MD Primary Care Provider Ariadne Doan Unavailable [phone] Allergies Allergen (clinical drug ingredient) Drug/Non Drug Allergy documented on EMR Reaction Allergy Type Onset Date Status hydromorphone Dilaudid hallucinations Drug Allergy Active tramadol traMADol HCl hallucinations Drug Allergy Active REASON FOR VISIT At Risk Footcare, Painful Nail(s) aggrevated by shoes and causing difficulty standing/walking. Medications Medication SIG (Take, Route, Frequency, Duration) Notes Start Date End Date Status Digoxin 125 MCG 1 tablet Orally Active PreserVision AREDS 2 Active Amiodarone HCl 200 MG 1 tablet Orally On ce a day for 30 day(s) Active Atorvastatin Calcium 40 MG 1 tablet Oral ly Once a day for 30 day(s) Active Acetaminophen 325 MG 1 tablet as needed Orally every 4 hrs Active Bumetanide 2 MG 1 tablet Orally [...] date) Never Smoker NA - NA Tobacco use other than smoking: Question Answer Notes Are you an other tobacco user? Yes C igars a couple a week Tobacco Control (Standard) Question Answer Notes Tobacco use: Nonsmoker Vital Signs Height 5 ft 11 in in 07/21/2024 Weight 180 lbs 07/21/2024 BMI 25.1 kg/m2 07/21/2024 Blood pressure systolic 120 mm Hg 07/21/19 25 Blood pressure diastolic 60 mm Hg 025 Encounters Encounter Location Date Provider Diagnosis [facility] [address] [address] 07/21/2024 Ariadne Long Atherosclerosis of artery of both lower extremities I70.203 Assessments Encounter Date Diagnosis (ICD Code) Assessment Notes Treatment Notes Treatment Clinical Notes Section Notes 07/21/2024 Atherosclerosis of artery of both lower extremities (ICD-10 - I70.203) Plan Of Treatment Next Appt Details Follow Up: 2 Months, Reason: Provider Name:Ariadne ordoñez, 10/21/2024 10:30:00 AM, [address] [place] [address], [phone], Procedure Notes * Category Sub-Category Detail Notes Keratoma Treatment Parring or Cutting o f Benign Hyperkeratotic Lesion(s) (-57) More than 4 Lesions - Due to the at risk nature of the patients medical condition as documented in the exam findings, performance of this keratoderma treatment is medically necessary as its management by an unskilled/untrained nonprofessional would put this patients foot and overall health at risk. Therefore, the benign hyperkeratotic lesions, ( 5 ) in total, locations as stated and described in the exam ( Heel(s) , Left , TA , T5 , SUB MTH (s) , 5 , B/L ), were pared, and/or cut utilizing a sterile 15 blade, tissue nippers, and/or power dremel instrumentation by the physician of record - 92494, Q8 Nail Reduction Nail Reduction Trimming of dyst rophic nails performed to reduce/remove overall nail length and girth, by manual and electrical means with use of a nail nipper and/or dremel, to more viable healthy nail plate or bed tissue 6-10 (O9502-L4) Progress Notes * Hector DIAZ HDOB:1945 (79 yo M)Acc No.[id number]:07/21/2024 Progress Note Patient:?Hector DIAZ Provider:?Ariadne Long DPM :1945???Age:79 Y???Sex:Male Fred e:07/21/2024 Address:[address] [place] [address] [id number] Pcp:Darek Ronquillo MD Subjective: * Chief Complaints: [...] Unspecified heart disease.? * Social History:?Tobacco Use:?Tobacco use other than smoking?Are you an other tobacco user??Yes Cigars a couple a week ?Tobacco Control (Standard)?Tobacco use:?Nonsmoker * Medications:?TakingPreserVis ion AREDS 2 Digoxin 125 MCG Tablet 1 tablet Orally Acetaminophen 325 MG Tablet 1 tablet as needed Orally every 4 hrs Xarelto 20 MG Tablet 1 tablet with food Orally Once a day Omeprazole 20 MG Capsule Delayed Release 1 capsule 30 minutes before morning meal Orally Once a day Midodrine HCl 2.5 MG Tablet 1 tablet Orally Twice a day Metoprolol Succinate ER 25 MG Tablet Extended Release 24 Hour 1 tablet Orally Once a day Ferrous Sulfate 325 (65 Fe) MG Tablet 1 tablet Orally Once a day Fenofibrate 145 MG Tablet 1 tablet Orally Once a day Dutasteride 0.5 MG Capsule 1 capsule Orally Once a day Vitamin D3 Bumetanide 2 MG Tablet 1 tablet Orally Once a day Atorvastatin Calcium 40 MG Tablet 1 tablet Orally Once a day Amiodarone HCl 200 MG Tablet 1 tablet Orally Once a day Medication List reviewed and reconciled with the patientTaking PreserVision AREDS 2 Taking Digoxin 125 MCG Tablet 1 tablet Orally Taking Acetaminophen 325 MG Tablet 1 tablet as needed Orally every 4 hrs Taking Xarelto 20 MG Tablet 1 tablet with food Orally Once a day Taking Omeprazole 20 MG Capsule Delayed Release 1 capsule 30 minutes before morning meal Orally Once a day Taking Midodrine HCl 2.5 MG Tablet 1 tablet Orally Twice a day Taking Metoprolol Succinate ER 25 MG Tablet Extended Release 24 Hour 1 tablet Orally Once a day Taking Ferrous Sulfate 325 (65 Fe) MG Tablet 1 tablet Orally Once a day Taking Fenofibrate 145 MG Tablet 1 tablet Orally Once a day Taking Dutasteride 0.5 MG Capsule 1 capsule Orally Once a day Taking Vitamin D3 Taking Bumetanide 2 MG Tablet 1 tablet Orally Once a day Taking Atorvastatin Calcium 40 MG Tablet 1 tablet Orally Once a day Taking Amiodarone HCl 200 MG Tablet 1 tablet Orally Once a day Medication List reviewed and reconciled with the patient * Allergies:?Dilaudid: halluci nationstraMADol HCl: hallucinationsyes[Allergies Verified] Objective: * Vitals:?Ht: 5 ft 11 in, Wt: 180, BMI: 25.1, Shoe size: 10.5-11, BP: 120/60 mm Hg, Wt-k.65 kg. * Examination: ???Vascular: ?DP PULSES (B):? 0/4, B/L.?PT PULSES (B):? 0/4, B/L.?CAPILLARY FILL TIME:? delayed, all digits, B/L.?TROPHIC CONDITION-TEXTURE/ELASTICITY/TURGOR/HAIR GROWTH (B):? decreased, B/L.?TEMPERTURE GRADIENT (C):? decreased, cool to cool, proximal to distal, B/L.?PIGMENTATION:? pale, B/L.?EDEMA (C):?absent, B/L.?Nails: ?NAILS are:? Elongated, overgrown, dystrophic 1-5 B/L.?Dermatologic: ?SKIN FINDINGS:?Skin exam reveals Keratotic lesion(s) located at , Heel(s) , Left , TA , T5 , SUB MTH (s) , 5 , B/L.?Neurological: ?SENSORY:?Neurological exam reveals intact sensorium, pain sensation normal, vibration sensation intact, pinprick sensation is normal in the lower extremities, Pt denies, anesthesia, burning, paresthesia, tingling, B/L.? Assessment: * Assessment: 1.?Atherosclerosis of artery of both lower extremities - I70.203 (Primary)??? Plan: * Treatment: * Procedures:?Keratoma Treatment:?Parring or Cutting of Benign Hyperkeratotic Lesion(s)?(-57) More than 4 Lesions - Due to the at risk nature of the patients medical condition as documented in the exam findings, performance of this keratoderma treatment is medically necessary as its management by an unskilled/untrained nonprofessional would put this patients foot and overall health at risk. Therefore, the benign hyperkeratotic lesions, ( 5 ) in total, locations as stated and described in the exam (??Heel(s)?,?Left?,?TA?,?T5?,?SUB MTH (s)?,?5?,?B/L?), were pared, and/or cut utilizing a sterile 15 blade, tissue nippers, and/or power dremel instrumentation by the physician of record - 09821, Q8.?Nail Reduction:?Nail Reduction?Trimming of dystrophic nails performed to reduce/remove overall nail length and girth, by manual and electrical means with use of a nail nipper and/or dremel, to more viable healthy nail plate or bed tissue 6-10 (G0127- Q8).? * Procedure Codes:?G0127 WANDA ING DYSTROPHIC NAILS ANY #, Modifiers: XS , [id number] TRIM SKIN LESIONS, OVER 4, Modifiers: XS , Q8 * Follow Up:?2 Months * Images: * Sign off status: Completed true * Provider:?Ariadne Long DPM Date:? Generated for Sera swenson/Joey/Javier on:?09/29/2024 03:04 PM [...] SUB MTH (s) , 5 , B/L Vascular DP PULSES (B): 0/4, B/L PT PULSES (B): 0/4, B/L CAPILLARY FILL TIME: delayed, all digits , B/L TEMPERTURE GRADIENT (C): decreased, cool to cool, proximal to distal, B/L TROPHIC CONDITION-TEXTURE/ELASTICITY/TURGOR/HAIR GROWTH (B): decreased, B/L EDEMA (C): absent, B/L PIGMENTATION: pale, B/L Nails NAILS are: Elongated, overgrown, dystro phic 1-5 B/L
--- OUTSIDE RECORDS SUMMARY | 2024-09-29 15:05 | XMS_ITS | Patient Health Record ---
Author Organization [facility] [place] Address [address] [facility] [place] [address] Care Team Providers Care Seating Upholsterer Name Role Phone Darek Ronquillo MD Primary Care Provider Lillia Ariadne Arthur Unavailable [phone] Allergies Allergen (clinical drug ingredient) Drug/Non Drug Allergy documented on EMR Reaction Allergy Type Onset Date Status hydromorphone Dilaudid hallucinations Drug Allergy Active tramadol traMADol HCl hallucinations Drug Allergy Active Reason For Referral No Information Medications Medication SIG (Take, Route, Frequency, Duration) Notes Start Date End Date Status Amiodarone HCl 200 MG 1 tablet Orally [...] as needed Orally every 4 hrs Active Digoxin 125 MCG 1 tablet Orally Active PreserVision AREDS 2 Active Social History Tobacco Use: Social History Observation Description Date Details (start date - stop date) Never Smoker NA - NA Alcohol Screen Question Answer Notes Did you [...] (Standard) Question Answer Notes Tobacco use: Nonsmoker Problems Problem Type SNOMED Code ICD Code Onset Dates Problem Status W/U Status Risk Notes Problem [id number] Atherosclerosi s of artery of both lower extremities (I70.203) Active confirmed Problem [id number] Skin ulcer of le ft heel, limited to breakdown of skin (L97.421) Active confirmed Vital Signs Blood pressure diastolic 60 mm Hg 07/21/2024 Height 5 ft 11 in in 07/21/2024 Blood pressure systolic 120 mm Hg 07/21/2024 Weight 180 lbs 07/21/2024 BMI 25.1 kg/m2 07/21/2024 Encounters Encounter Location Date Provider Diagnosis [address] [address] 10/15/2023 Ariadne Perica Atherosclerosis of artery of both lower extremities I70.[address] [address] 12/17/2023 Ariadne Perica Atherosclerosis of artery of both lower extremities I70.[address] [address] 02/25/2024 Ariadne Perica Atherosclerosis of artery of both lower extremities I70.[address] [address] 04/29/2024 Ariadne Perica Atherosclerosis of artery of both lower extremities I70.[address] [address] 07/21/2024 Ariadne Perica Atherosclerosis of artery of both lower extremities I70.203 Assessments Encounter Date Diagnosis (ICD Code) Assessment Notes Treatment Notes Treatment Clinical Notes Section Notes 10/15/2023 Atherosclerosis of artery of both lower extremities (ICD-10 - I70.203) 12/17/2023 Atherosclerosis of artery of both lower extremities (ICD-10 - I70.203) 02/25/2024 Atherosclerosis of artery of both lower extremities (ICD-10 - I70.203) 04/29/2024 Atherosclerosis of artery of both lower extremities (ICD-10 - I70.203) 07/21/2024 Atherosclerosis of artery of both lower extremities (ICD-10 - I70.203) Plan Of Treatment Next Appt Details Provider Name:Ariadne ordoñez, 10/21/2024 10:30:00 AM, [address] [place], [address], Insurance Providers Payer Name Payer Address Payer Phone Subscriber Number Group Number Insured Name Patient Relationship to Insured Coverage Start Date Coverage End Date [employer] [address] [place] [address] [id number] Hector Diaz Self - patient is the [...]
--- OUTSIDE RECORDS SUMMARY | 2024-09-29 15:05 | XMS_ITS | Clinical Summary ---
Author Organization [facility] [address] [facility] Address [address] [place] [address] Phone Care Team Providers Care Solar Resource Assessor Name Role Phone Darek Ronquillo MD Primary Care Provider [phone] Allergies Active Allergy Reactions Criticality Noted Date Comments Hydromorphone 10/02/2023 Medications pseudoephedrine- guaiFENesin (MUCINEX D) 60-600 mg per 12 hr tablet Take by mouth. Activ e furosemide (LASIX) 40 mg tablet Take 40 mg by mouth daily. Active fluticasone propionate (FLONASE) 50 mcg/actuation nasal spray Active fenofibrate (TRICOR) 145 mg tablet Take 1 tablet (145 mg total) by mouth 1 (one) time each day. Active amoxicillin (AMOXIL) 875 mg tablet Take 1 tablet (875 mg total) by mouth 2 (two) times a day. Active aspirin 81 mg chewable tablet Chew 1 tablet (81 mg total) 1 (one) time each day. Active atorvastatin (LIPITOR) 40 mg tablet Take 1 tablet (40 mg total) by mouth at bedtime. 1 Active budesonide-formo teroL (SYMBICORT) 160-4.5 mcg/actuation inhaler Inhale 2 Puffs into the lungs 2 times daily. Active cholecalciferol (VITAMIN D-3) 125 mcg (5,000 unit) capsule Take by mouth. A ctive dilTIAZem XR (DILACOR XR) 240 mg 24 hr capsule Take 1 capsule (240 mg total) by mouth 1 (one) time each day. Active dutasteride (AVODART) 0.5 mg capsule Take 0.5 mg by mouth daily. Active lisinopriL (PRINIVIL,ZESTRI L) 20 mg tablet Take 1 tablet (20 mg total) by mouth 1 (one) time each day. Active metoprolol succinate (TOPROL-XL) 100 mg 24 hr tablet Take 1 tablet (100 mg total) by mouth 1 (one) time each day. 2 Active rivaroxaban (Xarelto) 20 mg tablet Take 20 mg by mouth daily. 2 Active digoxin (LANOXIN) 125 mcg (0.125 mg) tablet Take 1 tablet (125 mcg total) by mouth 1 (one) time each day. Active midodrine (PROAMATINE) 2.5 mg tabletIndication s:symptomatic orthostatic hypotension Take 1 tablet (2.5 mg total) by mouth 3 (three) times a day before meals. Takes as needs due to BP results Active bumetanide (BUMEX) 2 mg tablet Take 1 tablet (2 mg total) by mouth 2 (two) times a day. Active potassium chloride (KLOR-CON M20) 20 mEq CR tablet Take 1 tablet (20 mEq total) by mouth 1 (one) time each day. Tablet may be swallowed whole (do not crush/chew/suck on) OR broken in half and each half swallowed separately OR dissolved (whole tablet) in ~4 ounces of water (allow ~2 minutes to dissolve, stir well and administer immediately). Active ferrous sulfate 325 mg (65 mg iron) EC tablet Take 1 tablet (325 mg total) by mouth 3 (three) times a day with meals. Do not crush, chew, or split. Active rv-oxb-LE-vit Y-udpbcs-fvfcsqr (PreserVision AREDS 2 Plus MV) 200 mcg-15 mcg- 5 mg-1 mg capsule Take 1 Tab ER by mouth 1 (one) time each day. Active metoprolol tartrate (LOPRESSOR) 25 mg tablet Take 1 tablet (25 mg total) by mouth 2 (two) times a day. Active Active Problems Problem Noted Date Diagnosed Date Pleural effusion 09/10/2024 Assessment & Plan (09/10/2024 10:05 AM EST): On his recent CT scan he does have new small right greater than left pleural effusions that to me most likely represent a cardiac etiology. I did also have a long discussion with them about pleural effusions in general and what tensional causes can be including heart failure, liver failure, kidney failure, infection, or malignancy. Has not been a significant change in his respiratory status but I did offer him a visit with interventional pulmonary to assess this more closely possibly with an ultrasound and a thoracentesis. 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 He is currently on Bumex. His preference is to follow-up with his superintendent of schools at [place] and I will make sure to send this note to him as they follow-up in the coming weeks. All questions were answered. Mediastinal lymphadenopathy 09/30/2023 Pulmonary nodule 09/30/2023 Overview (08/10/2024): Last Assessment & Plan: 78-year-old male with now a stable irregular pulmonary nodule in the right upper lobe when looking at most recent scans. I had a long discussion with him and his about the findings on the CAT scan as described in the HPI. We also talked again about pulmonary nodules in general and how their size, shape, and traveler changer time affect her level of suspicion for malignancy. Both are previous biopsy results and stability over recent scans are encouraging but I did explain to them that this does not mean it is not necessarily a cancer. Options are always for a second needle biopsy versus continued observation. After our discussion, he opted for continued observation and we will plan on doing a 6-month follow-up CT scan of the chest and a visit with me in the office after that. All questions were answered. Assessment & Plan (09/10/2024 10:03 AM EST): 79-year-old male with now a stable irregular pulmonary nodule in the right upper lobe when looking at most recent scans. I had a long discussion with him and his about the findings on the CAT scan as described in the HPI. We also talked again about pulmonary nodules in general and how their size, shape, and traveler changer time affect her level of suspicion for malignancy. Both are previous biopsy results and stability over recent scans are encouraging but I did explain to them that this does not mean it is not necessarily a cancer. Options are always for a second needle biopsy versus continued observation. After our discussion, he opted for continued observation and we will plan on doing a 6-month follow-up CT scan of the chest and a visit with me in the office after that. All questions were answered. This will also allow us to follow-up on pleural effusion. Ascending aortic aneurysm 06/12/2021 Overview (08/10/2024): Last Assessment & Plan: Patient does have a dilated ascending aorta. I did review his echocardiogram from April 2021. Did demonstrate that the LV systolic function was normal although the apex of the does appear to be akinetic and at times aneurysmal. Sinus of Valsalva was 4.4 cm the ascending aorta is 4.4 cm. I did review with her that the sinus of Valsalva and increased by 3 mm. We will continue to monitor this. Aortic aneurysm 12/21/2020 Overview (08/10/2024): Last Assessment & Plan: sinus of Valsalva 4.3 cm, ascending aorta 4.5 cm, transverse aorta at 4.5 cm. Blood pressure is stable. Continue metoprolol. We will continue to monitor yearly. Chronic atrial fibrillation 12/21/2020 Overview (08/10/2024): Last Assessment & Plan: He presents in a rate controlled atrial fibrillation. He will continue metoprolol and diltiazem at current doses. His [id number] score is elevated at 5(age, CHF, HTN, Vascular dx), recommendations would be for him to start an anticoagulant. Initially he had declined anticoagulation. His had called me back stating they would like to try this. My preference is Xarelto for his concomitant peripheral vascular disease. We have no recent laboratories therefore I am going to send him for a basic metabolic panel. When I get the results of this I can send in a prescription for Xarelto. They understand this process and agree. Coronary artery disease 12/21/2020 Overview (08/10/2024): Last Assessment & Plan: He has a history of coronary disease with prior CABG. His ECG shows new lateral T wave inversions for which he is asymptomatic. I offered a new stress test which he declined. He will continue aspirin and Plavix. He will continue diltiazem, lisinopril, metoprolol, furosemide, and high intensity statin therapy. If he changes his mind regarding a stress test he will call us. Hyperlipidemia 12/21/2020 Overview (08/10/2024): Last Assessment & Plan: Last lipid panel from December 2020. Total cholesterol 121, HDL 38, LDL 67. Continue fenofibrate and high intensity statin therapy. Hypertension 12/21/2020 Overview (08/10/2024): Last Assessment & Plan: 100/50 in office today, well-controlled. Continue regimen as above. Peripheral vascular disease 12/21/2020 Overview (08/10/2024): Last Assessment & Plan: He has signs and symptoms of intermittent claudication. I am going to update a bilateral lower arterial duplex with ALIZA. I will refer him to Dr. Muller after this. He used to follow with Dr. Estrada several years ago and was told he needs bypass surgery but he did not want this done. He is under the impression that he could not have this done. He did agree to the new tests and follow-up. Shortness of breath 12/21/2020 Overview (08/10/2024): Last Assessment & Plan: He was recently hospitalized after surgery. He is quite rhonchorous lung sounds on exam and increased dyspnea with coughing. I have asked him to get a chest x-ray today to ensure he does not have a pneumonia. Encounters Date Type Department Care Team Description 09/10/2024 10:00 AM EST Office Visit Thoracic Surgery - [place] [address] [facility] [address] [place] [id number] Mamadou Doss MD Pulmonary nodule (Primary Dx); Pleural effusion 08/31/2024 10:46 AM EST - 08/31/2024 11:59 PM EST Hospital Encounter [facility] CT Scan [address] [place] [phone] Pulmonary nodule Discharge Disposition: Home or Self Care from Last 3 Months Immunizations Name Administration Dates Next Due Pfizer SARS-CoV-2 COVID-19, mRNA, LNP-S, preservative free 09/03/2020,08/13/2020 Surgical History Surgery Date Site/Laterality Comments CORONARY ARTERY BYPASS GRAFT 2002 PROCEDURE: HISTORICAL CABG OTHER SURGICAL HISTORY 11/15/2023 PROCEDURE: TN BRONCHOSCOPY W/CPTR-ASST IMAGE-GUIDED NAVIGATION; COMMENT: Kyle Bronch/EBUS with Biopsies Medical History Medical History Date Comments Atrial fibrillation (CMS/HCC) 09/30/2023 DX :Atrial fibrillation (HCC) Anemia 09/30/2023 DX:Anemia Mixed hyperlipidemia 09/30/2023 DX:Mixed hy perlipidemia Peripheral vascular disease (CMS/HCC) 09/30/2023 DX:Peripheral vascular disease (HCC) COPD (chronic obstructive pu lmonary disease) (CMS/HCC) 09/30/2023 DX:COPD (chronic obstructive pulmonary disease) (HCC) Essential (primary) hypertension 09/30/2023 DX:Essential (primary) hypertension Benign prostatic hyperplasia with lower urinary tract symptoms, symptom details unspecified DX:Benign prostatic hyperpla deion with lower urinary tract symptoms, symptom details unspecified Cellulitis of right lower extremity DX:Cellulitis of right lower extremity Acute cough DX:Acute cough GERD (gastroesophageal reflu x disease) DX:GERD (gastroesophageal re flux disease) History of colon polyps DX:Histo ry of colon polyps Thoracic aortic aneurysm wit hout rupture (CMS/HCC) DX:Thoracic aortic aneurysm without rupture (HCC) Basal cell carcinoma of skin , unspecified DX:Basal cell carcinoma of s kin, unspecified Vitamin D deficiency DX:Vitamin D deficiency Paroxysmal atrial fibrillati on (CMS/HCC) DX:Paroxysmal atrial fibrill ation (HCC) Encounter for screening for malignant neoplasm of rectum DX:Encounter for screening f or malignant neoplasm of rectum Personal history of nicotine dependence DX:Personal history of nicot ine dependence Chronic diastolic (congestiv e) heart failure DX:Chronic diastolic (conges tive) heart failure (HCC) Pulmonary emphysema (CMS/HCC) DX :Pulmonary emphysema (HCC) Family History Medical History Relation Name Comments Heart failure Father Heart failure Mother Relation Name Status Comments Father Mother Social History Tobacco Use Types Packs/Day Years Used Date Smoking Tobacco: Former Cigarettes 2 40 0 07/08/1963 - 07/08/2003 Smokeless Tobacco: Never Alcohol Use Standard Drinks/Week Comments Yes 0 (1 standard drink = 0.6 oz pur e alcohol) Sex and Gender Information Value Date Recorded Sex Assigned at Not on file Legal Sex Male 4:04 PM EST Gender Identity Not on file Sexual Orientation Not on file Obstetrics History Last Filed Vital Signs Vital Sign Reading Time Taken Comments Blood Pressure 123/61 09/10/2024 10:01 AM EST Pulse 71 09/10/2024 10:01 AM EST Temperature 36.7 ??C (98.1 ??F) 09/10/2024 1 0:01 AM EST Respiratory Rate 14 09/10/2024 10:0 1 AM EST Oxygen Saturation 94% 09/10/2024 10: 01 AM EST Inhaled Oxygen Concentration - - Weight 84.2 kg (185 lb 11.2 oz) 025 10:01 AM EST Height 180.3 cm (5' 11 ) 09/10/2024 10: 01 AM EST Body Mass Index 25.9 09/10/2024 10:01 AM EST Plan of Treatment Health Maintenance Due Date Last Done Comments DTaP,Tdap,and Td Vaccines (1 - Tdap) 1964 Pneumococcal Vaccine: 50+ Years (1 of 2 - PCV) 1964 Zoster Vaccines (1 of 2) 1964 RSV Immunization Patients 60+ Years Old (1 - 1-dose 75+ series) 2020 Cholesterol Screening (Lipid Panel) 06/06/2022 Depression Screening 06/06/2022 Falls Risk Assessment 06/06/2022 Hepatitis C Screening 06/06/2022 Medicare Annual Wellness Visit 06/06/2022 Social Influencers of Health Screening 06/06/2022 Hypertension/CHF/CAD Annual BMP Blood Test 01/01/2023 01/01/2022 COVID-19 Vaccine ( season) 2024 05/03/2023, 04/11/2021, 09/03/2020, Additional history exists Influenza Vaccine (#1) 2024 04/19/2021, 2018 HIB Vaccines Aged Out No longer eligi ble based on patient's age to complete this topic HPV Vaccines Aged Out No longer eligi ble based on patient's age to complete this topic Hepatitis A Vaccines Aged Out No long er eligible based on patient's age to complete this topic Hepatitis B Vaccines Aged Out No long er eligible based on patient's age to complete this topic IPV Vaccines Aged Out No longer eligi ble based on patient's age to complete this topic MMR Vaccines Aged Out No longer eligi ble based on patient's age to complete this topic Meningococcal ACWY Vaccine Aged Out N o longer eligible based on patient's age to complete this topic Meningococcal B Vacine Aged Out No lo nger eligible based on patient's age to complete this topic RSV Immunization Patients Under 20 months Aged Out No longer eligible based on patient's age to complete this topic Varicella Vaccines Aged Out No longer eligible based on patient's age to complete this topic Procedures Procedure Name Priority Date/Time Associated Diagnosis Comments CT CHEST WO CONTRAST Routine 08/31/2024 11:05 AM EST Pulmonary nodule ANNUAL BMP BLOOD TEST Routine 01/01/2022 from Last 3 Months or Most Recently Relevant to Health Maintenance Results * CT Chest wo Contrast (08/31/2024 11:05 AM EST) Anatomical Region Laterality Modality Body Computed Tomogra phy 09/03/2024 10:5 3 AM EST Impressions 09/03/2024 11:16 AM EST Stable right apical mass, likely scarring. New small right greater than left pleural effusions with adjacent atelectasis. -------- FINAL REPORT -------- Dictated By: BARBARA NORTH Dictated Date: 09/03/2024 10:53 ET Assigned Physician: BARBARA NORTH Reviewed and Electronically Signed By: BARBARA NORTH Signed Date: 09/03/2024 11:16 ET Workstation ID: [id number] Transcribed By: Self Edit Transcribed Date: 09/03/2024 10:53 ET Narrative 09/03/2024 11:16 AM EST PROCEDURE: Chest CT INDICATION: Pulmonary nodule, mediastinal lymphadenopathy TECHNIQUE: Chest CT without contrast. Multi planar reformats were created and interpreted. The examination was performed utilizing dose reduction techniques. ??Total DLP 455 COMPARISON: ??09/05/[address] and PET/CT 11/01/[address] 02/11/2024 FINDINGS: LUNGS/PLEURA: Central airways are patent. ??Right apical mass measures 32 x 11 mm as compared to 32 x 11 mm prior. ??Emphysema with chronic bronchitis. ??New small right greater than left pleural effusions with bibasilar atelectasis. ??New 13 mm nodule in the left lower lobe, likely atelectasis. ??No pneumothorax. ?? MEDIASTINUM: Thyroid gland is normal. ??Prominent mediastinal lymph nodes, likely reactive. ??Esophagus is normal. ??Multichamber cardiac enlargement with severe biatrial dilation. ??Severe coronary calcifications with evidence of prior coronary artery bypass graft. ??No pericardial effusion. ??Thoracic aortic aneurysm measures 4.3 cm at the level of the right pulmonary artery, unchanged. CHEST WALL: Esophagus is normal. ??No axillary adenopathy or soft tissue mass. ??Right greater than left gynecomastia UPPER ABDOMEN:Right renal cyst. ??Arterial calcifications throughout the upper abdomen. BONES: Median sternotomy. ??Degenerative changes seen throughout the bones. Procedure Note Barbara North MD - 09/03/2024 PROCEDURE: Chest CT INDICATION: Pulmonary nodule, mediastinal lymphadenopathy TECHNIQUE: Chest CT without contrast. Multi planar reformats were createdand interpreted. The examination was performed utilizing dose reductiontechniques. Total DLP 455 COMPARISON: 09/05/[address] and PET/CT 11/01/[address]02/11/2024 FINDINGS: LUNGS/PLEURA: Central airways are patent. Right apical mass measures 32 x11 mm as compared to 32 x 11 mm prior. Emphysema with chronic bronchitis.New small right greater than left pleural effusions with bibasilaratelectasis. New 13 mm nodule in the left lower lobe, likely atelectasis.No pneumothorax. MEDIASTINUM: Thyroid gland is normal. Prominent mediastinal lymph nodes,likely reactive. Esophagus is normal. Multichamber cardiac enlargementwith severe biatrial dilation. Severe coronary calcifications withevidence of prior coronary artery bypass graft. No pericardial effusion.Thoracic aortic aneurysm measures 4.3 cm at the level of the rightpulmonary artery, unchanged. CHEST WALL: Esophagus is normal. No axillary adenopathy or soft tissuemass. Right greater than left gynecomastia UPPER ABDOMEN:Right renal cyst. Arterial calcifications throughout theupper abdomen. BONES: Median sternotomy. Degenerative changes seen throughout thebones. IMPRESSION: Stable right apical mass, likely scarring. New small right greater than left pleural effusions with adjacentatelectasis. -------- FINAL REPORT -------- Dictated By: BARBARA NORTH Dictated Date: 09/03/2024 10:53 ET Assigned Physician: BARBARA NORTH Reviewed and Electronically Signed By: BARBARA NORTH Signed Date: 09/03/2024 11:16 ET Workstation ID: [id number] Transcribed By: Self Edit Transcribed Date: 09/03/2024 10:53 ET Mamadou Doss MD IMG CT PROCEDURES Final Result * Annual BMP Blood Test (01/01/2022) Annual BMP Blood Test abstracted Historical Provider HEALTH MAINTENANCE Final Result from Last 3 Months or Most Recently Relevant to Health Maintenance Insurance [employer] [place] [employer]ARE [employer]VANTAGE Care Teams Solar Resource Assessor Relationship Specialty Start Date End Date Darek Ronquillo MD [address] [place] [address] Dr Navdeep [place] PCP - General 03/01/08
--- OUTSIDE RECORDS SUMMARY | 2024-09-29 15:05 | XMS_ITS ---
Author Organization [facility] Address [address] [place] [address] Care Team Providers Care Air Quality Specialist Name Role Phone Darek Ronquillo MD Primary Care Provider Soren Jaimes Jr REASON FOR VISIT anemic Encounters Encounter Location Date Provider Diagnosis [facility] [address] [place] [address] 08/04/2024 Soren Boothe Jr Plan Of Treatment No Information Progress Notes * STEFFEN ANTHONYDOB:1945 ( 79 yo M)Acc No.[id number]:08/04/2024 Patient:?NENARISHINADREWCOURTIC :1945???Age:79 Y???Sex:Male Address:[address] [place] [address] [place], [address] * true * Date:? Generated for Sera swenson/Joey/eTransmitting on:?09/29/2024 03:05 PM EDT
--- OUTSIDE RECORDS SUMMARY | 2024-09-29 15:05 | XMS_ITS | Encounter Summary ---
Author Organization [facility] Address [address] [place] [address] Care Team Providers Care Sales Development Executive Name Role Phone Darek Ronquillo MD Primary Care Provider [phone] Reason for Referral * Imaging (Routine) - Closed Specialty Diagnoses / Procedures Referred By Renetta castelan Referred To Contact Radiology Diagnoses Pulmonary nodule Procedures CT Chest wo Contrast Mamadou Doss MD [address] [address] Phone: tel: fax: [address] [address] Phone: tel: Referral ID Status Reason Start Date Expiration Date Visits Re quested Visits Authorized [id number] Closed 08/06/2024 08/06/2025 1 1 Reason for Visit * Imaging (Routine) - Closed Specialty Diagnoses / Procedures Referred By Renetta t Referred To Contact Radiology Diagnoses Pulmonary nodule Procedures CT Chest wo Contrast Mamadou Doss MD [address] [address] Phone: tel: fax: [address] [address] Phone: tel: Referral ID Status Reason Start Date Expiration Date Visits Re quested Visits Authorized [id number] Closed 08/06/2024 08/06/2025 1 1 Encounter Details Date Type Department Care Team (Latest Contact Info) Description 08/31/2024 10:46 AM EST - 08/31/2024 11:59 PM EST Hospital Encounter [facility] CT Scan [address] [place] [address] Pulmonary nodule Discharge Disposition: Home or Self Care Social History Tobacco Use Types Packs/Day Years [...] on file Sexual Orientation Not on file documented as of this encounter Medications at Time of Discharge amoxicillin (AMOXIL) 875 mg tablet Take 1 tablet (875 mg total) by mouth 2 (two) times a day. aspirin 81 mg chewable tablet Chew 1 tablet (81 mg total) 1 (one) time each day. atorvastatin (LIPITOR) 40 mg tablet Take 1 tablet (40 mg total) by mouth at bedtime. 11/18/2020 budesonide-formot Lon (SYMBICORT) 160-4.5 mcg/actuation inhaler Inhale 2 Puffs into the lungs 2 times daily. cholecalciferol (VITAMIN D-3) 125 mcg (5,000 unit) capsule Take by mouth. dilTIAZem XR (DILACOR XR) 240 mg 24 hr capsule Take 1 capsule (240 mg total) by mouth 1 (one) time each day. dutasteride (AVODART) 0.5 mg capsule Take 0.5 mg by mouth daily. fenofibrate (TRICOR) 145 mg tablet Take 1 tablet (145 mg total) by mouth 1 (one) time each day. fluticasone propionate (FLONASE) 50 mcg/actuation nasal spray furosemide (LASIX) 40 mg tablet Take 40 mg by mouth daily. lisinopriL (PRINIVIL,ZESTRIL ) 20 mg tablet Take 1 tablet (20 mg total) by mouth 1 (one) time each day. metoprolol succinate (TOPROL-XL) 100 mg 24 hr tablet Take 1 tablet (100 mg total) by mouth 1 (one) time each day. 12/25/2021 pseudoephedrine-g uaiFENesin (MUCINEX D) 60-600 mg per 12 hr tablet Take by mouth. rivaroxaban (Xarelto) 20 mg tablet Take 20 mg by mouth daily. 01/02/2022 documented as of this encounter Discharge Disposition Disposition Code Departure Means Destination Home or Self Care documented in this encounter Plan of Treatment Not on file documented as of this encounter Procedures Procedure Name Priority Date/Time Associated Diagnosis Comments CT CHEST WO CONTRAST Routine 08/31/2024 11:05 AM EST Pulmonary nodule documented in this encounter Results * CT Chest wo Contrast (08/31/2024 [...] Signed Date: 09/03/2024 11:16 ET Workstation ID: [id number] Transcribed By: Self Edit Transcribed Date: 09/03/2024 [...] Signed Date: 09/03/2024 11:16 ET Workstation ID: [id number] Transcribed By: Self Edit Transcribed Date: 09/03/2024 10:53 ET us Mamadou Doss MD IMG CT PROCEDURES Final Result documented in this encounter Visit Diagnoses Diagnosis Pulmonary nodule Other diseases of lung, not elsewhere classified documented in this encounter Care Teams Sales Development Executive Relationship Specialty Start Date End Date Darek Ronquillo MD [address] [place] [address] Dr Navdeep MA PCP - General 03/01/08 documented as of this encounter
--- OUTSIDE RECORDS SUMMARY | 2024-09-29 15:05 | XMS_ITS | Encounter Summary ---
Author Organization [facility] Address [address] [place] [address] Care Team Providers Care Chairperson Anesthesiology Name Role Phone Darek Ronquillo MD Primary Care Provider [phone] Reason for Visit * Reason Comments Follow-up CT-Scan 08/31/24 Encounter Details Date Type Department Care Team ([facility] st Contact Info) Description 09/10/2024 10:00 AM EST Office Visit Thoracic Surgery - [place] [address] [employer] [address] [place] [phone] Mamadou Doss MD 299 [facility] [address] [place] [address] Pulmonary nodule (Primary Dx); Pleural effusion Social History Tobacco Use Types Packs/Day Years [...] on file documented as of this encounter Last Filed Vital Signs Vital Sign Reading [...] Mass Index 25.9 09/10/2024 10:01 AM EST documented in this encounter Progress Notes * Mamadou Doss MD - 09/10/2024 10:05 AM ESTAssociated Problem(s): Pleural effusion On his recent CT scan he does [...] ultrasound and a thoracentesis. Alternatively he could follow- up with his geophysical support specialist and see if any adjustments in his medications would simply resolve the problem. He is currently on Bumex. His preference is to follow-up with his geophysical support specialist at [place] and I will make sure to [facility] the coming weeks. All questions were answered. * Mamadou Doss MD - 09/10/2024 10:03 AM ESTAssociated Problem(s): Pulmonary nodule 79-year-old male with now a stable irregular pulmonary nodule in the right upper lobe when looking at most recent scans. I had a long discussion with him and his about the findings on the CAT scan as described in the HPI. We also talked again about pulmonary nodules in general and how their size, shape, and voice over announcer time affect her level of suspicion for [...] allow us to follow-up on pleural effusion. * Mamadou Doss MD - 09/10/2024 10:00 AM EST FOLLOWUP IMAGING NOTE Patient name: Hector Diaz : 1945 Date of Visit: 09/10/2024 PCP: Darek Ronquillo MD Chief Complaint Patient presents with Follow-up CT-Scan 08/31/24 HPI Mr. Diaz is a 79 y.o. male who presents for a follow-up visit after their recent CT scan of the chest. 78-year-old man former smoker smoked 2 packs/day starting at age 16 up until the year 1999 with history of CABG in 2002 as well as bilateral femoropopliteal's about a year and a half ago and chronic anemia. I reviewed his CT scan of the chest, abdomen, and pelvis done for anemia, black stools, and right upper lobe abnormality on chest x-ray. The CT scan was done on 09/05/2023 at [facility] shows a spiculated right upper lobe nodule measuring 2.7 x 4.6 x 1.8 cm that has increased in size when compared with imaging from [place] in 2019. There is also a subcarinal lymph node that has increased in size now measuring 3.4 cm and an enlarged but stable precarinal lymph node measuring 2.1 cm. We then arranged for him to have a PET scan which was done on 10/31/2023 showed increased uptake in the right upper lobe mass in question SUV max of 5.0, left paratracheal lymph node SUV max of 13.5 right paratracheal lymph node SUV max of 2.2 and a left paratracheal lymph node SUV max of 2.6 without increased uptake elsewhere. Pulmonary function testing done on 10/11/2023 showed an FEV1 of 66%of predicted going up to 68% of predicted with bronchodilators and a DLCO VA of 36% of predicted. He then underwent navigational bronchoscopy/EBUS with FNA and cryobiopsies the right upper lobe mass pathology showing markedly atypical cells and some cells suspicious for squamous cell in situ. I didalso biopsy some other areas that appeared abnormal in the bronchial tree which were normal mucosa. Brushings also showed atypical cells and washings were negative. Biopsies of the lymph nodes showedsubcarinal lymph node to be negative and a good sample and a left hilar lymph node to be negative also good sample with a left paratracheal lymph node nondiagnostic blood only. Microbiology was negative. 3-month repeat CT scan of the chest after that was done on 02/11/2024 which shows stable appearance of the apical nodule in question and no other significant changes. No pleural fluid. A 6-month follow-up CT scan of the chest was done on 08/31/2024 which again shows the nodule to be stable at the right apex with severe emphysematous disease around. There are also new small right greater than left pleural effusions. He does not report any acute change in his breathing denies any fevers chills or unintentional weight loss. [place] any new neurologic symptoms. He did lose some teeth recently and is going to the dentist. Past Medical History: Diagnosis Date Acute cough DX:Acute cough Anemia 09/30/2023 DX:Anemia Atrial fibrillation (CMS/HCC) 09/30/2023 DX:Atrial fibrillation (HCC) Basal cell carcinoma of skin, unspecified DX:Basal cell carcinoma of skin, unspecified Benign prostatic hyperplasia with lower urinary tract symptoms, symptom details unspecified DX:Benign prostatic hyperplasia with lower urinary tract symptoms, symptom details unspecified Cellulitis of right lower extremity DX:Cellulitis of right lower extremity Chronic diastolic (congestive) heart failure (CMS/HCC) DX:Chronic diastolic (congestive) heart failure (HCC) COPD (chronic obstructive pulmonary disease) (CMS/HCC) 09/30/2023 DX:COPD (chronic obstructive pulmonary disease) (HCC) Encounter for screening for malignant neoplasm of rectum DX:Encounter for screening for malignant neoplasm of rectum Essential (primary) hypertension 09/30/2023 DX:Essential (primary) hypertension GERD (gastroesophageal reflux disease) DX:GERD (gastroesophageal reflux disease) History of colon polyps DX:History of colon polyps Mixed hyperlipidemia 09/30/2023 DX:Mixed hyperlipidemia Paroxysmal atrial fibrillation (CMS/HCC) DX:Paroxysmal atrial fibrillation (HCC) Peripheral vascular disease (CMS/HCC) 09/30/2023 DX:Peripheral vascular disease (HCC) Personal history of nicotine dependence DX:Personal history of nicotine dependence Pulmonary emphysema (CMS/HCC) DX:Pulmonary emphysema (HCC) Thoracic aortic aneurysm without rupture (CMS/HCC) DX:Thoracic aortic aneurysm without rupture (HCC) Vitamin D deficiency DX:Vitamin D deficiency Past Surgical History: Procedure Laterality Date CORONARY ARTERY BYPASS GRAFT 2002 PROCEDURE: HISTORICAL CABG OTHER SURGICAL HISTORY 11/15/2023 PROCEDURE: TX BRONCHOSCOPY W/CPTR-ASST IMAGE-GUIDED NAVIGATION; COMMENT: Kyle Bronch/EBUS with Biopsies Allergies Allergen Reactions Hydromorphone Current Outpatient Medications on File Prior to Visit Medication Sig Dispense Refill amoxicillin (AMOXIL) 875 mg tablet Take 1 tablet (875 mg total) by mouth 2 (two) times a day. aspirin 81 mg chewable tablet Chew 1 tablet (81 mg total) 1 (one) time each day. atorvastatin (LIPITOR) 40 mg tablet Take 1 tablet (40 mg total) by mouth at bedtime. budesonide-formoteroL (SYMBICORT) 160-4.5 mcg/actuation inhaler Inhale 2 Puffs [...] Take 40 mg by mouth daily. lisinopriL (PRINIVIL,ZESTRIL) 20 mg tablet Take 1 tablet (20 mg total) by mouth 1 (one) time each day. metoprolol succinate (TOPROL-XL) 100 mg 24 hr tablet Take 1 tablet (100 mg total) by mouth 1 (one) time each day. pseudoephedrine-guaiFENesin (MUCINEX D) 60-600 mg per 12 hr tablet Take by mouth. rivaroxaban (Xarelto) 20 mg tablet Take 20 mg by mouth daily. No current facility-administered medications on file prior to visit. Social History Tobacco Use Smoking status: Former Current packs/day: 0.00 Average packs/day: 2.0 packs/day for 40.0 years (80.0 ttl pk-yrs) Types: Cigarettes Start date: 07/08/1963 Quit date: 07/08/2003 Years since quittin.1 Smokeless tobacco: Never Substance Use Topics Alcohol use: Yes Drug use: Never Social History Social History Narrative Not on file Review of Systems General - Negative for: weight loss/gain, fatigue, fever, chills, weakness, difficulty sleeping Head - Negative for: headache, trauma Eyes - Negative for: acute vision change, blurred vision, double vision, eye pain, conjunctival erythema, eyelid pain/swelling/erythema Ears - Negative for: acute change in hearing, tinnitus, ear pain, ear drainage Nose - Negative for: nasal discharge, nosebleed, itching, sinus pain Mouth/Throat - Negative for: sore throat, swollen throat, dry mouth, hoarseness, dysphagia, odynophagia, oral lesions Neck - Negative for: pain, stiffness, swelling, mass/lumps, swollen glands Cardiovascular - Negative for: chest pain/pressure, exertional chest pain, palpitations, lightheadedness, dizziness, orthopnea, extremity edema Respiratory -as above Gastrointestinal - Negative for: abdominal pain, abdominal distention, bloating, nausea, vomiting, early satiety, diarrhea, constipation, BRBPR, melena, poor appetite Genitourinary - Negative for: dysuria, hematura, urinary frequency, urinary urgency, incontinence Musculoskeletal - Negative for: muscle or joint pain, stiffness, back pain, joint swelling or erythema Neurologic - Negative for: dizziness, seizures, weakness, numbness, tingling, tremor, dysarthria, facial droop Hematologic - Negative for: easy bruising, easy bleeding, ecchymosis, petechiae Endocrine - Negative for: polyuriua, polydipsia, heat or cold intolerance Lymphatic - Negative for: swollen nodes, unexplained lumps/bumps in neck/axillae/groin Skin - Negative for: rashes, lumps, itching, dryness, color change, hair/nail changes Psychiatric - Negative for: depression, anxiety, nervousness, stress, memory change, SI/HI Physical Exam Vitals: 09/10/24 1001 BP: 123/61 BP Location: Right arm Patient Position: Sitting BP Cuff Size: Large adult Pulse: 71 Resp: 14 Temp: 36.7 ??C (98.1 ??F) TempSrc: Temporal SpO2: 94% Weight: 84.2 kg (185 lb 11.2 oz) Height: 1.803 m (71 ) General: Patient is sitting comfortably in no acute distress, well developed, well nourished Head: Normocephalic, atraumatic, symmetric Eyes: Sclera anicteric, eyelids without edema or erythema, +EOMS intact ENT: Oral mucosa and tongue are moist without lesions or exudates Neck: Soft, supple, symmetric, trachea midline, no crepitus, no mass visualized or palpated Cardiovascular: Regular rate and rhythm, no murmur/rubs/gallops, BUE and BLE without edema, no calftenderness bilaterally Respiratory: Lungs CTA B, breathing nonlabored, speaking in full sentences, on room air. No use of accessory muscles. No obvious chest wall abnormality or deformity Gastrointestinal: Soft, non-tender, non-distended, +normoactive bowel sounds. Lymphatic: no cervical, supraclavicular, infraclavicular, or other lymphadenopathy noted Neurological: Alert and oriented x 3, neurologic exam is grossly normal Psychiatric: No agitation, appropriate affect Radiology Reviewed and interpreted by me directly as above I personally viewed the following imaging studies, in addition to reviewing the dictated report from the reading radiologist Assessment/Plan Problem List Items Addressed This Visit Respiratory Pulmonary nodule - Primary 79-year-old male with now a stable irregular pulmonary nodule in the right upper lobe when looking at most recent scans. I had a long discussion with him and his about the findings on the CAT scan as described in the HPI. We also talked again about pulmonary nodules in general and how their size, shape, and voice over announcer time affect her level of suspicion for [...] allow us to follow-up on pleural effusion. Pleural effusion On his recent CT scan he does [...] ultrasound and a thoracentesis. Alternatively he could follow- up with his geophysical support specialist and see if any adjustments in his medications would simply resolve the problem. He is currently on Bumex. His preference is to follow-up with his geophysical support specialist at [place] and I will make sure to send this note to himas they follow-up in the coming weeks. All questions were answered. Total time spent on date of this encounter: 37 minutes Reviewing patient's chart, Independently reviewing current/past imaging, Visit with the patient, Counseling and educating patient/family on diagnosis, Discussion of ongoing management, and Documenting clinical information in the patient's medical record Mamadou Doss MD on 09/10/2024 at 10:06 AM EST CC: No ref. provider found Darek Ronquillo MD documented in this encounter Plan of Treatment Not on file documented as of this encounter Visit Diagnoses Diagnosis Pulmonary nodule- Primary Other diseases of lung, not elsewhere classified Pleural effusion Unspecified pleural effusion documented in this encounter Historical Medications * This list may reflect changes made after this encounter. metoprolol tartrate (LOPRESSOR) 25 mg tablet Take 1 tablet (25 mg total) by mouth 2 (two) times a day. jj-yql-MW-vit J-govyde-vsvykxo (PreserVision AREDS 2 Plus MV) 200 mcg-15 mcg- 5 mg-1 mg capsule Take 1 Tab ER by mouth 1 (one) time each day. ferrous sulfate 325 mg (65 mg iron) EC tablet Take 1 tablet (325 mg total) by mouth 3 (three) times a day with meals. Do not crush, chew, or split. potassium chloride (KLOR-CON M20) 20 mEq CR tablet Take 1 tablet (20 mEq total) by mouth 1 (one) time each day. Tablet may be swallowed whole (do not crush/chew/suck on) OR broken in half and each half swallowed separately OR dissolved (whole tablet) in ~4 ounces of water (allow ~2 minutes to dissolve, stir well and administer immediately). bumetanide (BUMEX) 2 mg tablet Take 1 tablet (2 mg total) by mouth 2 (two) times a day. midodrine (PROAMATINE) 2.5 mg tabletIndications :symptomatic orthostatic hypotension Take 1 tablet (2.5 mg total) by mouth 3 (three) times a day before meals. Takes as needs due to BP results digoxin (LANOXIN) 125 mcg (0.125 mg) tablet Take 1 tablet (125 mcg total) by mouth 1 (one) time each day. added in this encounter Care Teams Chairperson Anesthesiology Relationship Specialty Start Date End Date Darek Ronquillo MD [address] [place] [address] Dr Navdeep MA PCP - General 03/01/08 documented as of this encounter
--- OUTSIDE RECORDS SUMMARY | 2024-09-29 15:05 | XMS_ITS ---
Author Organization [facility] [place] Address [address] [place] [address] Care Team Providers Care Shredding Machine Knife Changer Name Role Phone Darek Ronquillo MD Primary Care Provider Ariadne Doan Unavailable [phone] Allergies Allergen (clinical drug ingredient) Drug/Non Drug [...] 024 Encounters Encounter Location Date Provider Diagnosis [facility] [address] [address] 02/25/2024 Ariadne Long Atherosclerosis of artery of both lower extremities I70.203 Assessments Encounter Date Diagnosis (ICD Code) Assessment Notes Treatment Notes Treatment Clinical Notes Section Notes 02/25/2024 Atherosclerosis of artery of both lower extremities (ICD-10 - I70.203) Plan Of Treatment Next Appt Details Follow Up: 2 Months, Reason: Provider Name:Ariadne ordoñez, 10/21/2024 10:30:00 AM, [address] [place] [address], [phone], Procedure Notes * Category Sub-Category Detail Notes Keratoma Treatment Parring or Cutting o f Benign Hyperkeratotic Lesion(s) 71671 ( 2-4 Lesions ) - The Benign [...] healthy nail plate or bed tissue 6-10 (B7289-H8) Progress Notes * Hector DIAZ HDOB:1945 (78 yo M)Acc No.[id number]:02/25/2024 Progress Note Patient:?Hector Diaz H Provider:?Ariadne Long DPM :1945???Age:78 Y???Sex:Male Fred e:02/25/2024 Address:[address] [place] [address] [id number] Pcp:Darek Ronquillo MD Subjective: * Chief Complaints: [...] 3. ?no Exercise. ?Marital status: . 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 * Medications:?TakingAcetamino phen 325 MG Tablet [...] Procedures:?Keratoma Treatment:?Parring or Cutting of Benign Hyperkeratotic Lesion(s)?37075 ( 2-4 Lesions ) - The Benign [...] DYSTROPHIC NAILS ANY #, Modifiers: XS , [id number] TRIM SKIN LESIONS, 2 TO 4, Modifiers: XS , Q8 * Follow Up:?2 Months * Images: * Sign off status: Completed true * Provider:?Ariadne Long DPM Date:? Generated for Sera swenson/Joey/eTransmitting on:?09/29/2024 03:04 PM EDT History and Physical [...]
--- OUTSIDE RECORDS SUMMARY | 2024-09-29 15:05 | XMS_ITS ---
Author Organization [facility] [place] Address [address] [place] [address] Care Team Providers Care Home Mortgage Disclosure Act Specialist Name Role Phone Darek Ronquillo MD Primary Care Provider Ariadne Doan Unavailable [phone] Allergies Allergen (clinical drug ingredient) Drug/Non Drug [...] 024 Encounters Encounter Location Date Provider Diagnosis [facility] [address] [address] 04/29/2024 Ariadne Long Atherosclerosis of artery of both lower extremities I70.203 Assessments Encounter Date Diagnosis (ICD Code) Assessment Notes Treatment Notes Treatment Clinical Notes Section Notes 04/29/2024 Atherosclerosis of artery of both lower extremities (ICD-10 - I70.203) Plan Of Treatment Next Appt Details Follow Up: 2 Months, Reason: Provider Name:Ariadne ordoñez, 10/21/2024 10:30:00 AM, [address] [place] [address], [phone], Procedure Notes * Category Sub-Category Detail Notes Keratoma Treatment Parring or Cutting o f Benign Hyperkeratotic Lesion(s) (-57) More than 4 Lesions - The Benign hyperkeratotic lesions, as described above were pared, and/or cut utilizing a sterile 15 blade, tissue nippers, and/or dremel - 15307, Q8 Nail Reduction Nail Reduction Trimming of dyst rophic nails performed to reduce/remove overall nail length and girth, by manual and electrical means with use of a nail nipper and/or dremel, to more viable healthy nail plate or bed tissue 6-10 (Q1100-R6) Progress Notes * Hector DIAZ HDOB:1945 (79 yo M)Acc No.[id number]:04/29/2024 Progress Note Patient:?Dugroo, Hector H Provider:?Ariadne Long DPM :1945???Age:79 Y???Sex:Male Fred e:04/29/2024 Address:[address] [place] [address] [place]ter[address] [id number] Pcp:Darek Ronquillo MD Subjective: * Chief Complaints: [...] 3. ?no Exercise. ?Marital status: . 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 * Medications:?TakingPreserVis ion AREDS 2 Digoxin [...] 15 blade, tissue nippers, and/or dremel - 10746, Q8.?Nail Reduction:?Nail Reduction?Trimming of dystrophic nails performed to reduce/remove overall nail length and girth, by manual and electrical means with use of a nail nipper and/or dremel, to more viable healthy nail plate or bed tissue 6-10 (G0127- Q8).? * Procedure Codes:?G0127 WANDA ING DYSTROPHIC NAILS ANY #, Modifiers: XS , [id number] TRIM SKIN LESIONS, OVER 4, Modifiers: XS , Q8 * Follow Up:?2 Months * Images: * Sign off status: Completed true * Provider:?Ariadne Long DPM Date:? Generated for Sera swenson/Joey/Javier on:?09/29/2024 03:05 PM EDT History and Physical Notes * [...]
== END 2024-09-29 12:44 | disposition home or self-care (01) ==
LOC: HO.HCS 12:25
PROVIDERS: PCP Internal Medicine; Visit Provider Internal Medicine Cardiovascular Disease
DX: I50.30 Unspecified diastolic (congestive) heart failure (principal); I48.20 Chronic atrial fibrillation, unspecified; I25.10 Atherosclerotic heart disease of native coronary artery without angina pectoris
CPT/HCPCS: 99214; G2211

== ENCOUNTER 2024-10-19 09:25 | Outpatient (AMB) | payer MEDICARE, SELFPAY ==
--- NOTE | 2024-10-19 09:32 | MHC.PC.OV ---
Vital Signs 10/19/24 09:33 Height 5 ft 11 in Weight 176 lb BMI 24.5 BP 120/68 Blood Pressure Location Lt brachial Position Sitting Pulse 86 Pulse Source Pulse Oximeter Temp 97.4 F Temp Source Axillary Pulse Oximetry (%) 94 Oxygen Delivery Method Room Air Intake Visit Reasons: Routine Park Activities Coordinator Required: No Accompanied by: Spouse Allergies hydromorphone [From Dilaudid] Adverse Reaction (Verified 10/19/24 09:34) Confusion Tobacco use date assessed: 10/19/24 Fall risk assessment: 1 Fall in past year Dental Screening Dental Screen Date: 10/19/24 Did you have a dental visit in the last 12 months?: Yes Did you have a dental problem in the last 6 months where you did not have access to dental care?: No [facility] Medical History (Updated 10/19/24 @ 10:12 by Gary Alvarado MD) Anemia Acute congestive heart failure Acute upper gastrointestinal bleeding Acute blood loss anemia COPD (chronic obstructive pulmonary disease) Hyperlipidemia Afib Nasal sinus tumor CAD (coronary artery disease) Surgical History Hx of CABG Family History (Updated 10/19/24 @ 09:59 by Mckayla Giraldo CMA) Mother No problems noted. Father No problems noted. Social History Household Members: Spouse Housing: House Do you presently have visiting nurse or other home services: No Alcohol intake: current Alcohol intake frequency: holidays/special occasions only Alcohol type: beer Patient Tobacco Use Status: Former Tobacco user Tobacco use type: Cigar e-Cigarette/Vaping Use: Former Use Advance Directives Date on File: 02/16/22 service: No Current occupational status: retired Cognitive needs: No Hearing needs: No Vision needs: Yes (rx glasses) Questionnaire PHQ-9 Over the last 2 weeks, how often have you been bothered by any of the following problems? 1. Little interest or pleasure in doing things: not at all 2. Feeling down, depressed, or hopeless: not at all 3. Trouble falling or staying asleep, or sleeping too much: not at all 4. Feeling tired or having little energy: not at all 5. Poor appetite or overeating: not at all 6. Feeling bad about yourself - or that you are a failure or have let yourself or your family down: not at all 7. Trouble concentrating on things, such as reading the newspaper or watching television: not at all 8. Moving or speaking so slowly that other people could have noticed. Or the opposite - being so fidgety or restless that you have been moving around a lot more than usual: not at all 9. Thoughts that you would be better off or of hurting yourself in some way: not at all Total score: 0 Source: Developed by Drs. Homer Ash, Leela Torre, Kota Ann and colleagues, with an educational annika from [employer]. Thrive Questionnaire Date Thrive assessed: 09/06/23 I am a: Patient Within the past 12 months, did the food you bought not last and you didn't have the money to get more?: Never true Within the past 12 months, did you worry whether your food would run out before you got money to buy more?: Never true Do you have trouble paying for medicines?: No Do you have trouble getting transportation to medical appointments?: No Do you have trouble paying your heating and electricity bill?: No Do you have trouble taking care of your child, family member or friend?: No Do you have trouble with day-to-day activities such as bathing, preparing meals, shopping, managing finances, etc.?: No Are you currently unemployed and looking for a job?: No Are you interested in more education?: No THRIVE Score: 0 AUDIT C Alcohol Use Questionnaire (AUDIT-C) 1. How often do you have a drink containing alcohol?: Monthly or less 2. How many drinks containing alcohol do you have on a typical day when you are drinking?: 1 or 2 3. How often do you have six or more drinks on one occasion?: Less than monthly Total Score: 2 ASHLEY-7 AMB Questionnaire ASHLEY-7 Date ASHLEY - 7 assessed: 10/19/24 Feeling nervous, anxious, or on edge: 0 = Not at all Not being able to stop or control worryin = Not at all Worrying too much about different things: 0 = Not at all Trouble relaxin = Not at all Being so restless that it is hard to sit still: 0 = Not at all Becoming easily annoyed or irritable: 0 = Not at all Feeling afraid as if something awful might happen: 0 = Not at all Total ASHLEY-7 score (0-4 normal; 5-9 mild; 10-14 moderate; 15-21 severe): 0 Source: Developed by Drs. Homer Ash, Leela Torre, Kota Ann and colleagues, with an educational annika from [employer]. Physical exam (Primary Care) Vital Signs: Last Vital Signs Temp 97.4 F 10/19/24 09:33 Pulse 86 10/19/24 09:33 BP 120/68 10/19/24 09:33 Pulse Ox 94 10/19/24 09:33 Oxygen Delivery Method Room Air 10/19/24 09:33 BMI result Body Mass Index 24.5 Tobacco/Smoking Status: Tobacco use Status Tobacco use date assessed 10/19/24 10/19/24 09:35 Patient Tobacco Use Status Former Tobacco user 10/19/24 09:35 Tobacco use type Cigar 10/19/24 09:35 e-Cigarette/Vaping Use Former Use 10/19/24 09:35 PHQ-9: PHQ-9 Score PHQ-9: Total score 0 10/19/24 10:00 Thrive Assessment: Date of Thrive Assessment Date Thrive assessed 09/06/23 10/19/24 09:35 Coding Level of Care Code New Pt Level 4 (22849) Complex EM visit Add On G2211 Diagnoses Anemia, unspecified type D64.9 Anemia type: unspecified type Afib I48.91 Assessment & Plan Assessment & Plan (1) Anemia: Code(s): D64.9 - Anemia, unspecified Category: Medical Qualifiers: Anemia type: unspecified type Qualified Code(s): D64.9 - Anemia, unspecified Plan: Recvd one unit of PRBC. Rpt CBC today. If Hgb is low, will consider additional transfusion. Pt has an upcoming capsule endoscopy consideration with GI. Will speak to Dr Mccoy about possible Watchman procedure, so chronic anticoagulation can be discontinued. (2) Afib: Comment: on jieto Code(s): I48.91 - Unspecified atrial fibrillation Category: Medical Plan: As above Plan History of Present Illness The patient is a 79-year-old male presenting with anemia. He recently received a single unit of blood transfusion ten days ago after previous lab work conducted on October 06. Despite this intervention, he reports increased fatigue, particularly after a recent vacation. The primary cause of his anemia is suspected to be a gastrointestinal bleed, though further evaluation is needed. Plans for a capsule endoscopy with Dr. Boothe are underway to ascertain the precise etiology. 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 - The patient is a former smoker. - He is capable of driving, including at night. - He wears compression stockings for vascular health management. Review of Systems - Constitutional: Reports fatigue, especially post-vacation. - Cardiovascular: Denies shortness of breath. - Hematologic: Reports history of anemia and recent blood transfusion. - Respiratory: Denies current shortness of breath. - Vascular: Wears compression stockings for vascular health. Physical Exam General: Cooperative and healthy appearing Nutritional Appearance: Well nourished Orientation/consciousness: Patient oriented x3 Limitations: No limitations Head: Normal to inspection General: Appearance normal, both eyes and all related structures Neck: Normal visual inspection Chest: Normal palpation of entire chest wall Respiratory: No shortness of breath ormal respiratory effort Neurology: Patient oriented x3 Results - Labs: Blood work done prior to the last transfusion on October 06. Plan I will proceed with further diagnostic investigation to evaluate for the cause of anemia through capsule endoscopy with Dr. Boothe. Blood work will be conducted today to guide the necessity for future transfusions. Once results are obtained, I will collaborate with the patient?s primary provider, Veronica, to ensure optimal management. Discussions concerning the Watchman procedure are on hold until a definitive diagnosis regarding the bleeding source is confirmed. Regular follow-up in six months is scheduled unless an earlier visit is required due to concerns. No medication refills are currently needed. Patient was informed and verbally consented to the use of an ambient scribe for clinic note documentation during this visit. Discussion Notes I discussed the plan to identify the cause of the patient's anemia, with particular focus on evaluating for gastrointestinal bleeding via capsule endoscopy. I explained the importance of today's blood tests to ascertain the need for additional transfusions and will communicate with his primary care provider, Veronica, should deeper intervention be required. The potential discontinuation of anticoagulation through the Watchman procedure was also addressed, but I advised prioritizing the bleeding source investigation. I outlined the follow-up timeline, with planned checks in six months, contingent upon the patient's immediate needs. The patient understands the need to return sooner if symptoms worsen. Patient Instructions - Undergo blood testing today. - Attend the appointment with Dr. Boothe on Saturday for a capsule endoscopy. - Monitor for any symptoms of worsening anemia or bleeding. - Follow up with Veronica if further blood transfusion is needed based on lab results. - Schedule a regular follow-up in six months or earlier if necessary. Orders: Orders Complete Blood Count no Diff Today D64.9 - Anemia, unspecified
[2024-10-19 09:33] VITALS: BP 120/68; PULSE 86; TEMP 36.3; O2SAT 94; BMI 24.5
--- OUTSIDE RECORDS SUMMARY | 2024-10-19 10:27 | XMS_ITS ---
Author Organization [facility] Address [address] [place] [address] Care Team Providers Care Administrative Personal Assistant Name Role Phone Darek Ronquillo MD [...] Problem Status W/U Status Risk Notes Problem [id number] Anemia, unspecified type (D64.9) Active confirmed Vital Signs Temperature 97.5 degrees Fahrenheit 08/10/19 25 Blood pressure systolic 000 mm Hg 08/10/19 25 Blood pressure diastolic 00 mm Hg 025 Height 5 ft 11 in in 08/10/2024 Weight 180 lbs 08/10/2024 BMI 25.10 kg/m2 08/10/2024 Encounters Encounter Location Date Provider Diagnosis [facility] [address] [place] [address] 08/10/2024 Soren Boothe Jr Anemia, unspecified type [...] NENAMARCO A STEFFENDOB:1945 ( 79 yo M)Acc No.[id number]:08/10/2024 Progress Notes Patient:?COURT ANTHONYIC Provider:?Soren Boothe MD :1945???Age:79 Y???Sex:Male Fred e:08/10/2024 Address:[address] [place], [place] [id number] Pcp:Darek Ronquillo MD Subjective: * Chief Complaints: [...] Anemia, Right maxillary sinus tumor, 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 * Surgical History:?Coronary a rtery bypass [...] MD Date:?0 08/10/2024 Generated for Sera swenson/Joey/Javier on:?10/19/2024 10:27 AM EDT History and Physical Notes * HPI (History of Present Illness) Category Sub-Category Detail Notes Category Not es New symptom(s) The patient is a pleasant 79-year-old man seen today in consultation. He was admitted to the hospital in August of last year with anemia and underwent upper endoscopy which was basically normal. He had undergone colonoscopy in [place] 3 months prior to this. Following discharge, [...]
--- OUTSIDE RECORDS SUMMARY | 2024-10-19 10:28 | XMS_ITS ---
[facility] [place] Address [address] [place] [address] Care Team Providers Care Clinical Engineering Manager Name Role Phone Darek Ronquillo MD Primary Care Provider Ariadne Doan Unavailable [phone] Allergies Allergen (clinical drug ingredient) Drug/Non Drug [...] 024 Encounters Encounter Location Date Provider Diagnosis [facility] [address] [address] 02/25/2024 Ariadne Long Atherosclerosis of artery of both lower extremities I70.203 Assessments Encounter Date Diagnosis (ICD Code) Assessment Notes Treatment Notes Treatment Clinical Notes Section Notes 02/25/2024 Atherosclerosis of artery of both lower extremities (ICD-10 - I70.203) Plan Of Treatment Next Appt Details Follow Up: 2 Months, Reason: Provider Name:Ariadne ordoñez, 10/21/2024 10:30:00 AM, [address] [place] [address], [phone], Procedure Notes * Category Sub-Category Detail Notes Keratoma Treatment Parring or Cutting o f Benign Hyperkeratotic Lesion(s) 91653 ( 2-4 Lesions ) - The Benign [...] healthy nail plate or bed tissue 6-10 (H0067-U6) Progress Notes * Hector DIAZ HDOB:1945 (78 yo M)Acc No.[id number]:02/25/2024 Progress Note Patient:?Hector Diaz H Provider:?Ariadne Long DPM :1945???Age:78 Y???Sex:Male Fred e:02/25/2024 Address:[address] [place] [address] [id number] Pcp:Darek Ronquillo MD Subjective: * Chief Complaints: [...] 3. ?no Exercise. ?Marital status: . 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 * Medications:?TakingAcetamino phen 325 MG Tablet [...] Procedures:?Keratoma Treatment:?Parring or Cutting of Benign Hyperkeratotic Lesion(s)?28983 ( 2-4 Lesions ) - The Benign [...] DYSTROPHIC NAILS ANY #, Modifiers: XS , I908003 TRIM SKIN LESIONS, 2 TO 4, Modifiers: XS , Q8 * Follow Up:?2 Months * Images: * Sign off status: Completed true * Provider:?Ariadne Long DPM Date:? Generated for Sera swenson/Joey/eTransmitting on:?10/19/2024 10:28 AM EDT History and Physical Notes * [...]
--- OUTSIDE RECORDS SUMMARY | 2024-10-19 10:28 | XMS_ITS | Clinical Summary ---
Author Organization [facility] [address] [facility] Address [address] [place] [address] Phone Care Team Providers Care Minute Clerk Name Role Phone Darek Ronquillo MD Primary Care Provider [phone] Allergies Active Allergy Reactions Criticality Noted Date [...] Do not crush, chew, or split. Active du-bkz-II-vit V-xdvihz-suzjznt (PreserVision AREDS 2 Plus MV) 200 mcg-15 [...] thoracentesis. Alternatively he could follow-up with his electronics design engineer and see if any adjustments in his medications would simply resolve the problem. He is currently on Bumex. His preference is to follow-up with his electronics design engineer at [place] and I will make sure to send [...] general and how their size, shape, and globe changer time affect her level of suspicion [...] general and how their size, shape, and globe changer time affect her level of suspicion [...] follow-up on pleural effusion. Ascending aortic aneurysm ([facility] V24) 06/12/20 Overview (08/10/2024): Last Assessment & Plan: Patient [...] will continue to monitor this. Aortic aneurysm ([facility] V24) 12/21/2020 Overview (08/10/2024): Last Assessment & Plan: sinus of Valsalva 4.3 cm, ascending aorta 4.5 cm, transverse aorta at 4.5 cm. Blood pressure is stable. Continue metoprolol. We will continue to monitor yearly. Chronic atrial fibrillation ([facility] V24, [facility] V28) 12/21/2020 Overview (08/10/2024): Last Assessment & Plan: He presents in a rate controlled atrial fibrillation. He will continue metoprolol and diltiazem at current doses. His CIL7PR9-TQAk score is elevated at 5(age, CHF, HTN, [...] Continue regimen as above. Peripheral vascular disease ([facility] V24) 2020 Overview (08/10/2024): Last Assessment & Plan: He [...] AM EST Office Visit Thoracic Surgery - [address] [place] [phone] Mamadou Doss MD Pulmonary nodule (Primary Dx); Pleural effusion 08/31/2024 10:46 AM EST - 08/31/2024 11:59 PM EST Hospital Encounter [facility] CT Scan [address] [place] [address] Pulmonary nodule Discharge Disposition: Home or Self Care from Last 3 Months Immunizations Name Administration Dates Next Due Pfizer SARS-CoV-2 COVID-19, mRNA, LNP-S, preservative free 09/03/2020,08/13/2020 Surgical History Surgery Date Site/Laterality Comments CORONARY ARTERY BYPASS GRAFT 2002 PROCEDURE: HISTORICAL CABG OTHER SURGICAL HISTORY 11/15/2023 PROCEDURE: OH BRONCHOSCOPY W/CPTR-ASST IMAGE-GUIDED NAVIGATION; COMMENT: Kyle Bronch/EBUS with Biopsies Medical History Medical History Date Comments Atrial fibrillation ([facility] V24, [facility] V28) 09/30/2023 DX:Atrial fibrillation (HCC) Anemia 09/30/2023 DX:Anemia Mixed hyperlipidemia 09/30/2023 DX:Mixed hy perlipidemia Peripheral vascular disease ([facility] V24) 09/30/2023 DX:Peripheral vascular disea se ([facility]) COPD (chronic obstructive pu lmonary disease) ([facility] V24, [facility] V28) 09/30/2023 DX:COPD (chronic o bstructive pulmonary disease) ([facility]) Essential (primary) hypertension 09/30/2023 DX:Essential (primary) hypertension [...] polyps Thoracic aortic aneurysm wit hout rupture ([facility] V24) DX:Thoracic aortic aneurysm without rupture (HCC) Basal cell carcinoma of skin , unspecified DX:Basal cell carcinoma of s kin, unspecified Vitamin D deficiency DX:Vitamin D deficiency Paroxysmal atrial fibrillati on ([facility] V24, [facility] V28) DX:Paroxysmal atrial fibril lation (HCC) Encounter for screening for malignant neoplasm of rectum DX:Encounter for screening f or malignant neoplasm of rectum Personal history of nicotine dependence DX:Personal history of nicot ine dependence Chronic diastolic (congestiv e) heart failure ([facility] V24, [facility] V28) DX:Chronic diastoli c (congestive) heart failure (HCC) Pulmonary emphysema (CMS/HCC V24, CMS/HCC V28) DX:Pulmonary emphysema (HCC) Family History Medical History Relation [...] Vaccines (1 of 2) 1964 RSV Immunization Adult Patients (1 - 1-dose 75+ series) 2020 Cholesterol Screening (Lipid Panel) 06/06/2022 Depression Screening 06/06/2022 Falls Risk Assessment 06/06/2022 Hepatitis C Screening 06/06/2022 Medicare Annual Wellness Visit 06/06/2022 Social Influencers of Health Screening 06/06/2022 Hypertension/CHF/CAD Annual BMP Blood Test 01/01/2023 01/01/2022 COVID-19 Vaccine ( season) 2024 05/03/2023, 04/11/2021, 09/03/2020, Additional history exists Influenza Vaccine (Season Ended) 2025 04/19/2021, 05/12/2019 HIB Vaccines Aged Out No longer eligi [...] age to complete this topic Meningococcal B Vaccine Aged Out No l onger eligible based on patient's age to complete [...] Signed Date: 09/03/2024 11:16 ET Workstation ID: [id number] Transcribed By: Self Edit Transcribed Date: 09/03/2024 [...] Signed Date: 09/03/2024 11:16 ET Workstation ID: [id number] Transcribed By: Self Edit Transcribed Date: 09/03/2024 10:53 ET Mamadou Doss MD IMG CT PROCEDURES Final Result * Annual BMP Blood Test (01/01/2022) Annual BMP Blood Test abstracted Historical Provider HEALTH MAINTENANCE Final Result from Last 3 Months or Most Recently Relevant to Health Maintenance Insurance [employer] Care Teams Minute Clerk Relationship Specialty Start Date End Date Darek Ronquillo MD [address] [place] [address] Dr Navdeep [place] PCP - General 03/01/08
--- OUTSIDE RECORDS SUMMARY | 2024-10-19 10:28 | XMS_ITS | Patient Health Record ---
Author Organization [facility] Address [address] [place] [address] Care Team Providers Care Senior Maintenance Technician Name Role Phone Darek Ronquillo MD [...] Problem Status W/U Status Risk Notes Problem [id number] Heme positive stool (R19.5) Active confirmed Problem Gastritis (1821561) Gastritis (K29.70) Active confirmed Problem [id number] Anemia, unspecified type (D64.9) Active confirmed Vital Signs Temperature 97.5 degrees Fahrenheit 08/10/2024 Blood pressure diastolic 00 mm Hg 08/10/2024 Height 5 ft 11 in in 08/10/2024 Blood pressure systolic 000 mm Hg 08/10/2024 Weight 180 lbs 08/10/2024 BMI 25.10 kg/m2 08/10/2024 Procedures Procedure Date Ordered Date Performed Result Body Sit e VIDEO CAPSULE ENDOSCOPY 10/06/2024 N/A Encounters Encounter Location Date Provider Diagnosis [facility] [address] [place] [address] 08/10/2024 Soren Boothe Jr Anemia, unspecified type D64.9 [facility] [address] [place] [address] 11/01/2023 Soren Boothe Jr Anemia, unspecified type D64.9 [facility] [address] [place] [address] 11/05/2023 Soren Boothe Jr [facility] [address] [place] [address] 08/04/2024 Soren Boothe Jr [facility] [address] [place] [address] 10/06/2024 Soren Boothe Jr Anemia, unspecified type D64.9 and Heme positive stool R19.5 Assessments Encounter Date Diagnosis (ICD Code) Assessment [...] 11/01/2023 Anemia, unspecified type (ICD-10 - D64.9) 10/06/2024 Heme positive stool (ICD-10 - R19.5) 10/06/2024 Anemia, unspecified type (ICD-10 - D64.9) Plan Of Treatment Pending Test Test Name Order Date VIDEO CAPSULE ENDOSCOPY 10/06/2024 Future Test Test Name Order Date VIDEO CAPSULE ENDOSCOPY 11/01/2023 Insurance Providers Payer Name Payer Address Payer Phone Subscriber Number Group Number Insured Name Patient Relationship to Insured Coverage Start Date Coverage End Date [facility] [address] [place] [phone] [id number] STEFFEN ANTHONY Self - patient is the insured Medical (General) History Medical History History ICD Code Hypotension Coronary artery disease with heart failu re/preserved ejection fraction Atrial fibrillation Anemia Right maxillary sinus tumor, surgery at [facility] General Surgical History Surgery Date(Month/Year) Coronary artery bypass grafting
--- OUTSIDE RECORDS SUMMARY | 2024-10-19 10:28 | XMS_ITS ---
Author Organization [facility] [place] Address [address] [place] [address] Care Team Providers Care Audit Control Clerk Name Role Phone Darek Ronquillo MD Primary Care Provider Ariadne Doan Unavailable [phone] Allergies Allergen (clinical drug ingredient) Drug/Non Drug [...] 025 Encounters Encounter Location Date Provider Diagnosis [facility] [address] [address] 07/21/2024 Ariadne Long Atherosclerosis of artery of both lower extremities I70.203 Assessments Encounter Date Diagnosis (ICD Code) Assessment Notes Treatment Notes Treatment Clinical Notes Section Notes 07/21/2024 Atherosclerosis of artery of both lower extremities (ICD-10 - I70.203) Plan Of Treatment Next Appt Details Follow Up: 2 Months, Reason: Provider Name:Airadne ordoñez, 10/21/2024 10:30:00 AM, [address] [place] [address], [id number], Procedure Notes * Category Sub-Category Detail Notes [...] instrumentation by the physician of record - 65015, Q8 Nail Reduction Nail Reduction Trimming of dyst rophic nails performed to reduce/remove overall nail length and girth, by manual and electrical means with use of a nail nipper and/or dremel, to more viable healthy nail plate or bed tissue 6-10 (U2788-U7) Progress Notes * Hector DIAZ HDOB:1945 (79 yo M)Acc No.[id number]:07/21/2024 Progress Note Patient:?Hector DIAZ Provider:?Ariadne Long DPM :1945???Age:79 Y???Sex:Male Fred e:07/21/2024 Address:[address] [place] [address] [place], [id number] Pcp:Darek Ronquillo MD Subjective: * Chief Complaints: [...] instrumentation by the physician of record - 91451, Q8.?Nail Reduction:?Nail Reduction?Trimming of dystrophic nails performed to reduce/remove overall nail length and girth, by manual and electrical means with use of a nail nipper and/or dremel, to more viable healthy nail plate or bed tissue 6-10 (G0127- Q8).? * Procedure Codes:?G0127 WANDA ING DYSTROPHIC NAILS ANY #, Modifiers: XS , [id number] TRIM SKIN LESIONS, OVER 4, Modifiers: XS , Q8 * Follow Up:?2 Months * Images: * Sign off status: Completed true * Provider:?Ariadne Long DPM Date:? Generated for Sera swenson/Joey/Javier on:?10/19/2024 10:28 AM EDT History and Physical [...]
--- OUTSIDE RECORDS SUMMARY | 2024-10-19 10:29 | XMS_ITS ---
Author Organization [facility] Address [address] [place] [address] Care Team Providers Care Rail Specialist Name Role Phone Darek Ronquillo MD Primary Care Provider Soren Jaimes Jr [phone] REASON FOR VISIT anemic Encounters Encounter Location Date Provider Diagnosis [facility] [address] [place] [address] 08/04/2024 Soren Boothe Jr Plan Of Treatment No Information Progress Notes * STEFFEN ANTHONYDOB:1945 ( 79 yo M)Acc No.[id number]:08/04/2024 Patient:?NENARISHIANDREWCOURTIC :1945???Age:79 Y???Sex:Male [address] [place], [address] * true * Date:? Generated for Dandyi leela/Joey/eTransmitting on:?10/19/2024 10:28 AM EDT
--- OUTSIDE RECORDS SUMMARY | 2024-10-19 10:29 | XMS_ITS ---
Author Organization [facility] [place] Address [address] [place] [address] Care Team Providers Care Farm Crew Member Name Role Phone Darek Ronquillo MD Primary Care Provider Ariadne Doan Unavailable [phone] Allergies Allergen (clinical drug ingredient) Drug/Non Drug [...] 024 Encounters Encounter Location Date Provider Diagnosis [facility] [address] [address] 04/29/2024 Ariadne Long Atherosclerosis of artery of both lower extremities I70.203 Assessments Encounter Date Diagnosis (ICD Code) Assessment Notes Treatment Notes Treatment Clinical Notes Section Notes 04/29/2024 Atherosclerosis of artery of both lower extremities (ICD-10 - I70.203) Plan Of Treatment Next Appt Details Follow Up: 2 Months, Reason: Provider Name:Ariadne ordoñez, 10/21/2024 10:30:00 AM, [address] [place] [address], [phone], Procedure Notes * Category Sub-Category Detail Notes Keratoma Treatment Parring or Cutting o f Benign Hyperkeratotic Lesion(s) (-57) More than 4 Lesions - The Benign hyperkeratotic lesions, as described above were pared, and/or cut utilizing a sterile 15 blade, tissue nippers, and/or dremel - 55470, Q8 Nail Reduction Nail Reduction Trimming of dyst rophic nails performed to reduce/remove overall nail length and girth, by manual and electrical means with use of a nail nipper and/or dremel, to more viable healthy nail plate or bed tissue 6-10 (L7952-K8) Progress Notes * Hector DIAZ HDOB:1945 (79 yo M)Acc No.[id number]:04/29/2024 Progress Note Patient:?Dugroo, Hector H Provider:?Ariadne Long DPM :1945???Age:79 Y???Sex:Male Fred e:04/29/2024 Address:[address] [place] [address] [place] [facility] Pcp:Darek Ronquillo MD Subjective: * Chief Complaints: [...] ?no Exercise. ?Marital status: . 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 * Medications:?TakingPreserVis ion AREDS 2 Digoxin [...] 15 blade, tissue nippers, and/or dremel - 03149, Q8.?Nail Reduction:?Nail Reduction?Trimming of dystrophic nails performed to reduce/remove overall nail length and girth, by manual and electrical means with use of a nail nipper and/or dremel, to more viable healthy nail plate or bed tissue 6-10 (G0127- Q8).? * Procedure Codes:?G0127 WANDA ING DYSTROPHIC NAILS ANY #, Modifiers: XS , [id number] TRIM SKIN LESIONS, OVER 4, Modifiers: XS , Q8 * Follow Up:?2 Months * Images: * Sign off status: Completed true * Provider:?Ariadne Long DPM Date:? Generated for Sera swenson/Joey/Javier on:?10/19/2024 10:29 AM EDT History and Physical Notes * [...]
--- OUTSIDE RECORDS SUMMARY | 2024-10-19 10:29 | XMS_ITS | Patient Health Record ---
Author Organization [facility] [place] Address [address] [facility] [place] [address] Care Team Providers Care Assistant Professor Name Role Phone Darek Ronquillo MD Primary Care Provider Lillia Ariadne Arthur Unavailable [phone] Allergies Allergen (clinical drug ingredient) Drug/Non Drug [...] Problem Status W/U Status Risk Notes Problem [id number] Atherosclerosi s of artery of both lower extremities (I70.203) Active confirmed Problem 220285339 Skin ulcer of le ft heel, limited to breakdown of skin (L97.421) Active confirmed Vital Signs Blood pressure diastolic 60 mm Hg 07/21/2024 Height 5 ft 11 in in 07/21/2024 Blood pressure systolic 120 mm Hg 07/21/2024 Weight 180 lbs 07/21/2024 BMI 25.1 kg/m2 07/21/2024 Encounters Encounter Location Date [facility] [address] 12/17/[facility]23 Ariadne Perica Atherosclerosis of artery of both lower extremities I70.[address] [address] 02/25/2024 Ariadne Perica Atherosclerosis of artery of both lower extremities I70.203 [facility] [address] 04/29/2024 Ariadne Perica Atherosclerosis of artery of both lower extremities I70.[address] [address] 07/21/2024 Ariadne Perica Atherosclerosis of artery of [...] Provider Name:Ariadne ordoñez, 10/21/2024 10:30:00 AM, [address] [place], [address], Insurance Providers Payer Name Payer Address Payer Phone Subscriber Number Group Number Insured Name Patient Relationship to Insured Coverage Start Date Coverage End Date [employer] [place] [employer]age [address] [place] [address] [id number] Hector Diaz Self - patient is the insured Medical (General) History Medical History History ICD Code Anemia CAD (Cholesterol) Cancer, sinus Cataracts covid-19 Heart disease High blood pressure COPD Poor circulation Reflux ( GERD) chronic sinusitis Measles Mumps Chicken pox Vascular grafts Transfusions Surgical History Surgery Date(Month/Year) CABG surgery - 3 vessel 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
== END 2024-10-19 10:43 | disposition home or self-care (01) ==
LOC: HO.HMCHD 09:26
PROVIDERS: PCP Internal Medicine; Visit Provider Internal Medicine
DX: D64.9 Anemia, unspecified (principal); I48.91 Unspecified atrial fibrillation

== ENCOUNTER → 2024-10-19 09:25 | Outpatient (BNVA) | payer MEDICARE, SELFPAY | PROVIDERS: PCP Internal Medicine; Visit Provider Internal Medicine ==

== ENCOUNTER 2024-10-19 10:15 | Outpatient (REF) | payer MEDICARE, SELFPAY ==
--- OUTSIDE RECORDS SUMMARY | 2024-10-19 11:40 | XMS_ITS | Clinical Summary ---
Author Organization [facility] [address] [facility] Address [address] [place] [address] Phone Care Team Providers Care Time Study Technician Name Role Phone Darek Ronquillo MD Primary Care Provider [phone] Allergies Active Allergy Reactions Criticality Noted Date [...] Do not crush, chew, or split. Active pc-fgr-TX-vit P-rcvhzy-usrvjts (PreserVision AREDS 2 Plus MV) 200 mcg-15 [...] thoracentesis. Alternatively he could follow-up with his core winding operator and see if any adjustments in his medications would simply resolve the problem. He is currently on Bumex. His preference is to follow-up with his core winding operator at [place] and I will make sure to send [...] general and how their size, shape, and record changer time affect her level of suspicion [...] general and how their size, shape, and record changer time affect her level of suspicion [...] follow-up on pleural effusion. Ascending aortic aneurysm ([facility] V24) 06/12/20 Overview (08/10/2024): Last [...] will continue to monitor this. Aortic aneurysm ([facility] V24) 12/21/2020 Overview (08/10/2024): Last Assessment & Plan: sinus of Valsalva 4.3 cm, ascending aorta 4.5 cm, transverse aorta at 4.5 cm. Blood pressure is stable. Continue metoprolol. We will continue to monitor yearly. Chronic atrial fibrillation ([facility] V24, [facility] C V28) 12/21/2020 Overview (08/10/2024): Last Assessment & Plan: He presents in a rate controlled atrial fibrillation. He will continue metoprolol and diltiazem at current doses. His KBT1HN6-QDRl score is elevated at 5(age, CHF, HTN, [...] Continue regimen as above. Peripheral vascular disease ([facility] V24) 2020 Overview (08/10/2024): Last [...] AM EST Office Visit Thoracic Surgery - [address] [place] [address] Mamadou Doss MD Pulmonary nodule (Primary Dx); Pleural effusion 08/31/2024 10:46 AM EST - 08/31/2024 11:59 PM EST Hospital Encounter [facility] CT Scan [address] [place] [address] Pulmonary nodule Discharge Disposition: Home [...] History Medical History Date Comments Atrial fibrillation ([facility] V24, [facility] V28) 09/30/2023 DX:Atrial fibrillation (HCC) Anemia 09/30/2023 DX:Anemia Mixed hyperlipidemia 09/30/2023 DX:Mixed hy perlipidemia Peripheral vascular disease ([facility] V24) 09/30/2023 DX:Peripheral vascular disea se ([facility]) COPD (chronic obstructive pu lmonary disease) ([facility] V24, [facility] V28) 09/30/2023 DX:COPD (chronic o bstructive pulmonary disease) ([facility]) Essential (primary) hypertension 09/30/2023 DX:Essential [...] polyps Thoracic aortic aneurysm wit hout rupture ([facility] V24) DX:Thoracic aortic aneurysm without rupture (HCC) Basal cell carcinoma of skin , unspecified DX:Basal cell carcinoma of s kin, unspecified Vitamin D deficiency DX:Vitamin D deficiency Paroxysmal atrial fibrillati on ([facility] V24, [facility] V28) DX:Paroxysmal atrial fibril lation (HCC) Encounter for screening for malignant neoplasm of rectum DX:Encounter for screening f or malignant neoplasm of rectum Personal history of nicotine dependence DX:Personal history of nicot ine dependence Chronic diastolic (congestiv e) heart failure ([facility] V24, [facility] V28) DX:Chronic diastoli c (congestive) [...] Signed Date: 09/03/2024 11:16 ET Workstation ID: [id number] Transcribed By: Self Edit Transcribed Date: 09/03/2024 [...] Signed Date: 09/03/2024 11:16 ET Workstation ID: [id number] Transcribed By: Self Edit Transcribed Date: 09/03/2024 10:53 ET Mamadou Doss MD IMG CT PROCEDURES Final Result * Annual BMP Blood Test (01/01/2022) Annual BMP Blood Test abstracted Historical Provider HEALTH MAINTENANCE Final Result from Last 3 Months or Most Recently Relevant to Health Maintenance Insurance [employer] Care Teams Time Study Technician Relationship Specialty Start Date End Date Darek Ronquillo MD [address] [place] [address] Dr Navdeep [place] PCP - General 03/01/08
--- OUTSIDE RECORDS SUMMARY | 2024-10-19 11:40 | XMS_ITS ---
Author Organization [facility] Address [address] [place] [address] Care Team Providers Care Vegetable Farm Worker Name Role Phone Darek Ronquillo MD Primary Care Provider Soren Jaimes Jr [phone] REASON FOR VISIT Capsule endoscopy / FYI Problems Problem Type SNOMED Code ICD Code Onset Dates Problem Status W/U Status Risk Notes Problem [id number] Heme positive stool (R19.5) Active confirmed Procedures Procedure Date Ordered Date Performed Result Body Sit e VIDEO CAPSULE ENDOSCOPY 10/06/2024 N/A Encounters Encounter Location Date Provider Diagnosis [facility] [address] [place] [address] 10/06/2024 Soren Boothe Jr Anemia, unspecified type D64.9 and Heme positive stool R19.5 Assessments Encounter Date Diagnosis (ICD Code) Assessment Notes Treatment Notes Treatment Clinical Notes Section Notes 10/06/2024 Anemia, unspecified type (ICD-10 - D64.9) 10/06/2024 Heme positive stool (ICD-10 - R19.5) Plan Of Treatment Pending Test Test Name Order Date VIDEO CAPSULE ENDOSCOPY 10/06/2024 Progress Notes * STEFFEN ANTHONYDOB:1945 ( 79 yo M)Acc No.[id number]:10/06/2024 Patient:?COURT ANTHONYIC :1945???Age:79 Y???Sex:Male Address:[address] [place] [address] [place], [address] Subjective: * Chief Complaints: * ???Capsule endoscopy / FYI * Medical History:? * Surgical History:? * Hospitalization/Major Diagno stic Procedure:? * Medications:? Objective: * Vitals:? * Physical Examination:? Assessment: * Assessment: 1.?Anemia, unspecified type - D64.9 (Primary)???2.?Heme positive stool - R19.5??? Plan: * Treatment: 2.?Heme positive stool?Procedure: VIDEO CAPSULE ENDOSCOPY * Procedure Codes:? * true * Date:? Generated for Sera swenson/Joey/eTransmitting on:?10/19/2024 11:40 AM EDT
[2024-10-19 13:44] LABS: Hematocrit 27.5 % (42.0-52.0); Hemoglobin 8.6 g/dl (14.0-18.0); Mean Corpuscular HGB Conc 31.3 g/dl (31.0-36.0); Mean Corpuscular Hemoglobin 33.9 pg (27.0-33.0); Mean Corpuscular Volume 108.3 fL (80.0-98.0); Mean Platelet Volume 10.5 fL (9.4-12.4); Platelet Count 235 X10*3/uL (160-400); Red Blood Count 2.54 X10*6/uL (4.60-5.80); Red Cell Distribution Width 17.8 % (11.0-16.0)
== END 2024-10-19 10:16 | disposition home or self-care (01) ==
LOC: HO.10HDL 10:15
PROVIDERS: Visit Provider Internal Medicine
DX: D64.9 Anemia, unspecified (principal); I48.91 Unspecified atrial fibrillation
CPT/HCPCS: 36415; 85027; 99202

== ENCOUNTER 2024-10-22 07:51 | Outpatient (AMB) | payer MEDICARE, SELFPAY ==
--- OUTSIDE RECORDS SUMMARY | 2024-10-22 07:55 | XMS_ITS ---
Author Organization [facility] Address [address] [place] [address] Care Team Providers Care Qm Nurse Name Role Phone Darek Ronquillo MD Primary Care Provider Soren Jaimes Jr [phone] REASON FOR VISIT anemic Encounters Encounter Location Date Provider Diagnosis [facility] [address] [place] [address] 08/04/2024 Soren Boothe Jr Plan Of Treatment No Information Progress Notes * STEFFEN ANTHONYDOB:1945 ( 79 yo M)Acc No.[id number]:08/04/2024 Patient:?NENARISHIANDREWCOURTIC :1945???Age:79 Y???Sex:Male [address] [facility] [place], [address] * true * Date:? Generated for Sera swenson/Joey/eTransmitting on:?10/22/2024 07:55 AM EDT
--- OUTSIDE RECORDS SUMMARY | 2024-10-22 07:55 | XMS_ITS | Clinical Summary ---
Author Organization [facility] [address] [facility] Address [address] [place] [address] Phone Care Team Providers Care Slab Depiler Operator Name Role Phone Darek Ronquillo MD Primary Care Provider [phone] Allergies Active Allergy Reactions Criticality Noted Date [...] Do not crush, chew, or split. Active yy-djk-ZO-vit B-lkhflo-zbsyves (PreserVision AREDS 2 Plus MV) 200 mcg-15 [...] thoracentesis. Alternatively he could follow-up with his driver retraining instructor and see if any adjustments in his medications would simply resolve the problem. He is currently on Bumex. His preference is to follow-up with his driver retraining instructor at [place] and I will make sure to send [...] general and how their size, shape, and electronic data interchange specialist time affect her level of suspicion for [...] general and how their size, shape, and electronic data interchange specialist time affect her level of suspicion for [...] follow-up on pleural effusion. Ascending aortic aneurysm ([facility] V24) 06/12/20 Overview (08/10/2024): Last [...] will continue to monitor this. Aortic aneurysm ([facility] V24) 12/21/2020 Overview (08/10/2024): Last Assessment & Plan: sinus of Valsalva 4.3 cm, ascending aorta 4.5 cm, transverse aorta at 4.5 cm. Blood pressure is stable. Continue metoprolol. We will continue to monitor yearly. Chronic atrial fibrillation ([facility] V24, [facility] V28) 12/21/2020 Overview (08/10/2024): Last Assessment & Plan: He presents in a rate controlled atrial fibrillation. He will continue metoprolol and diltiazem at current doses. His XVS4OZ6-NKNd score is elevated at 5(age, CHF, HTN, [...] Continue regimen as above. Peripheral vascular disease ([facility] V24) 2020 Overview (08/10/2024): Last [...] AM EST Office Visit Thoracic Surgery - [address] [place] [address] Mamadou Doss MD Pulmonary nodule (Primary Dx); Pleural effusion 08/31/2024 10:46 AM EST - 08/31/2024 11:59 PM EST Hospital Encounter [facility] CT Scan [address] [place] [address] Pulmonary nodule Discharge Disposition: Home or Self Care from Last 3 Months Immunizations Name Administration Dates Next Due Pfizer SARS-CoV-2 COVID-19, mRNA, LNP-S, preservative free 09/03/2020,08/13/2020 Surgical History Surgery Date Site/Laterality Comments CORONARY ARTERY BYPASS GRAFT 2002 PROCEDURE: HISTORICAL CABG OTHER SURGICAL HISTORY 11/15/2023 PROCEDURE: [place] BRONCHOSCOPY W/CPTR-ASST IMAGE-GUIDED NAVIGATION; COMMENT: Kyle Bronch/EBUS with Biopsies Medical History Medical History Date Comments Atrial fibrillation ([facility] V24, [facility] V28) 09/30/2023 DX:Atrial fibrillation (HCC) Anemia 09/30/2023 DX:Anemia Mixed hyperlipidemia 09/30/2023 DX:Mixed hy perlipidemia Peripheral vascular disease ([facility] V24) 09/30/2023 DX:Peripheral vascular disea se ([facility]) COPD (chronic obstructive pu lmonary disease) ([facility] V24, [facility] V28) 09/30/2023 DX:COPD (chronic o bstructive pulmonary disease) ([facility]) Essential (primary) hypertension 09/30/2023 DX:Essential [...] polyps Thoracic aortic aneurysm wit hout rupture ([facility] V24) DX:Thoracic aortic aneurysm without rupture (HCC) Basal cell carcinoma of skin , unspecified DX:Basal cell carcinoma of s kin, unspecified Vitamin D deficiency DX:Vitamin D deficiency Paroxysmal atrial fibrillati on ([facility] V24, [facility] V28) DX:Paroxysmal atrial fibril lation (HCC) Encounter for screening for malignant neoplasm of rectum DX:Encounter for screening f or malignant neoplasm of rectum Personal history of nicotine dependence DX:Personal history of nicot ine dependence Chronic diastolic (congestiv e) heart failure ([facility] V24, [facility] V28) DX:Chronic diastoli c (congestive) [...] Signed Date: 09/03/2024 11:16 ET Workstation ID: [id number] Transcribed By: Self Edit Transcribed Date: 09/03/2024 [...] Signed Date: 09/03/2024 11:16 ET Workstation ID: [id number] Transcribed By: Self Edit Transcribed Date: 09/03/2024 10:53 ET Mamadou Doss MD IMG CT PROCEDURES Final Result * Annual BMP Blood Test (01/01/2022) Annual BMP Blood Test abstracted Historical Provider HEALTH MAINTENANCE Final Result from Last 3 Months or Most Recently Relevant to Health Maintenance Insurance [employer] Care Teams Slab Depiler Operator Relationship Specialty Start Date End Date Darek Ronquillo MD [address] [place] [address] Dr Navdeep [place] PCP - General 03/01/08
--- OUTSIDE RECORDS SUMMARY | 2024-10-22 07:55 | XMS_ITS | Patient Health Record ---
Author Organization [facility] [place] Address [address] [place] [address] Care Team Providers Care Day Care Director Name Role Phone Darek Ronquillo MD Primary Care Provider Lillia Ariadne Arthur Unavailable [phone] Allergies Allergen (clinical drug ingredient) Drug/Non Drug Allergy documented on EMR Reaction Allergy Type Onset Date Status hydromorphone Dilaudid hallucinations Drug Allergy Active tramadol traMADol HCl hallucinations Drug Allergy Active Reason For Referral No Information Medications Medication SIG (Take, Route, Frequency, Duration) Notes Start Date End Date Status Fenofibrate 145 MG 1 tablet Orally Once a day for 30 day(s) Active Dutasteride 0.5 MG 1 capsule Orally Onc e a day for 30 day(s) Active Omeprazole 20 MG 1 capsule 30 minutes before morning meal Orally Once a day for 30 day(s) Active Midodrine HCl 2.5 MG 1 tablet Orally Twi ce a day for 30 day(s) Active Metoprolol Succinate ER 25 MG 1 tablet Orally Once a day for 30 day(s) Active Ferrous Sulfate 325 (65 Fe) MG 1 tablet Orally Once a day for 30 day(s) Active PreserVision AREDS 2 Active Bumetanide 2 MG 1 tablet Orally Once a day for 30 day(s) Active Digoxin 125 MCG 1 tablet Orally Active Atorvastatin Calcium 40 MG 1 tablet Oral ly Once a day for 30 day(s) Active Acetaminophen 325 MG 1 tablet as needed Orally every 4 hrs Active Amiodarone HCl 200 MG 1 tablet Orally On ce a day for 30 day(s) Active Xarelto 20 MG 1 tablet with food Orally Once a day for 30 day(s) Active Vitamin D3 Active Social History Tobacco Use: Social History [...] Problem Status W/U Status Risk Notes Problem [id number] Atherosclerosi s of artery of both lower extremities (I70.203) Active confirmed Problem 285046588 Skin ulcer of le ft heel, limited to breakdown of skin (L97.421) Active confirmed Vital Signs Blood pressure diastolic 60 mm Hg 10/21/2024 Height 5 ft 11 in in 10/21/2024 Blood pressure systolic 120 mm Hg 10/21/2024 Weight 180 lbs 10/21/2024 BMI 25.1 kg/m2 10/21/2024 Encounters Encounter Location Date Provider Diagnosis [address] [address] 12/17/2023 Ariadne Perica Atherosclerosis of artery of both lower extremities I70.[address] [address] 02/25/2024 Ariadne Perica Atherosclerosis of artery of both lower extremities I70.[address] [address] 04/29/2024 Ariadne Perica Atherosclerosis of artery of both lower extremities I70.[address] [address] 07/21/2024 Ariadne Perica Atherosclerosis of artery of both lower extremities I70.[address] [address] 10/21/2024 Ariadne Perica Atherosclerosis of artery of both [...] of both lower extremities (ICD-10 - I70.203) 10/21/2024 Atherosclerosis of artery of both lower extremities (ICD-10 - I70.203) Plan Of Treatment Next Appt Details Provider Name:Ariadne ordoñez, 01/26/2025 09:30:00 AM, [address] [place], [address], Insurance Providers Payer Name Payer Address Payer Phone Subscriber Number Group Number Insured Name Patient Relationship to Insured Coverage Start Date Coverage End Date [facility] [address] [place] [address] [id number] Hector Diaz Self - patient is the [...]
--- OUTSIDE RECORDS SUMMARY | 2024-10-22 07:55 | XMS_ITS | Patient Health Record ---
Author Organization [facility] Address [address] [place] [address] Care Team Providers Care Ground Crew Supervisor Name Role Phone Darek Ronquillo MD Primary [...] Problem Status W/U Status Risk Notes Problem 05270539 Heme positive stool (R19.5) Active confirmed Problem Gastritis (2651204) Gastritis (K29.70) Active confirmed Problem 372498818 Anemia, unspecified type (D64.9) Active confirmed Vital Signs Temperature 97.5 degrees Fahrenheit 08/10/2024 Blood pressure diastolic 00 mm Hg 08/10/2024 Height 5 ft 11 in in 08/10/2024 Blood pressure systolic 000 mm Hg 08/10/2024 Weight 180 lbs 08/10/2024 BMI 25.10 kg/m2 08/10/2024 Procedures Procedure Date Ordered Date Performed Result Body Sit e VIDEO CAPSULE ENDOSCOPY 10/06/2024 N/A Encounters Encounter Location Date Provider Diagnosis [facility] [address] [place] [address] 08/10/2024 Soren Boothe Jr Anemia, unspecified type D64.9 [facility] [address] [place] [address] 11/01/2023 Soren Boothe Jr Anemia, unspecified type D64.9 [facility] [address] [place] [address] 11/05/2023 Soren Boothe Jr [facility] [address] [place] [address] 08/04/2024 Soren Boothe Jr [facility] [address] [place] [address] 10/06/2024 Soren Boothe Jr Anemia, unspecified type [...] Insured Coverage Start Date Coverage End Date [facility] [address] [place] [phone] [id number] STEFFEN ANTHONY Self - patient is the insured Medical (General) History Medical History History ICD Code Hypotension Coronary artery disease with heart failu re/preserved ejection fraction Atrial fibrillation Anemia Right maxillary sinus tumor, surgery at [facility] General Surgical History Surgery Date(Month/Year) Coronary artery bypass grafting
--- OUTSIDE RECORDS SUMMARY | 2024-10-22 07:55 | XMS_ITS ---
Author Organization [facility] [place] Address [address] [place] [address] Care Team Providers Care Medical Clerical Assistant Name Role Phone Darek Ronquillo MD Primary Care Provider Ariadne Doan Unavailable [phone] Allergies Allergen (clinical drug ingredient) Drug/Non Drug [...] 024 Encounters Encounter Location Date Provider Diagnosis [facility] [address] [address] 04/29/2024 Ariadne Long Atherosclerosis of artery of both lower extremities I70.203 Assessments Encounter Date Diagnosis (ICD Code) Assessment Notes Treatment Notes Treatment Clinical Notes Section Notes 04/29/2024 Atherosclerosis of artery of both lower extremities (ICD-10 - I70.203) Plan Of Treatment Next Appt Details Follow Up: 2 Months, Reason: Provider Name:Ariadne ordoñez, 01/26/2025 09:30:00 AM, [address] [place] [address], [phone], Procedure Notes * Category Sub-Category Detail Notes Keratoma Treatment Parring or Cutting o f Benign Hyperkeratotic Lesion(s) (-57) More than 4 Lesions - The Benign hyperkeratotic lesions, as described above were pared, and/or cut utilizing a sterile 15 blade, tissue nippers, and/or dremel - 07282, Q8 Nail Reduction Nail Reduction Trimming of dyst rophic nails performed to reduce/remove overall nail length and girth, by manual and electrical means with use of a nail nipper and/or dremel, to more viable healthy nail plate or bed tissue 6-10 (L6178-Q9) Progress Notes * Hector DIAZ HDOB:1945 (79 yo M)Acc No.[id number]:04/29/2024 Progress Note Patient:?Dugroo, Hector H Provider:?Ariadne Long DPM :1945???Age:79 Y???Sex:Male Fred e:04/29/2024 Address:[address] [place] [address] [place] [facility] Pcp:Darek Ronquillo MD Subjective: * Chief Complaints: [...] 3. ?no Exercise. ?Marital status: . 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 * Medications:?TakingPreserVis ion AREDS 2 Digoxin [...] 15 blade, tissue nippers, and/or dremel - 90446, Q8.?Nail Reduction:?Nail Reduction?Trimming of dystrophic nails performed to reduce/remove overall nail length and girth, by manual and electrical means with use of a nail nipper and/or dremel, to more viable healthy nail plate or bed tissue 6-10 (G0127- Q8).? * Procedure Codes:?G0127 WANDA ING DYSTROPHIC NAILS ANY #, Modifiers: XS , [id number] TRIM SKIN LESIONS, OVER 4, Modifiers: XS , Q8 * Follow Up:?2 Months * Images: * Sign off status: Completed true * Provider:?Ariadne Long DPM Date:? Generated for Sera swenson/Joey/Javier on:?10/22/2024 07:55 AM EDT History and Physical Notes * [...]
--- OUTSIDE RECORDS SUMMARY | 2024-10-22 07:55 | XMS_ITS ---
Author Organization [facility] [place] Address [address] [place] [address] Care Team Providers Care Youth Career Specialist Name Role Phone Darek Ronquillo MD Primary Care Provider Ariadne Doan Unavailable [phone] Allergies Allergen (clinical drug ingredient) Drug/Non Drug [...] 025 Encounters Encounter Location Date Provider Diagnosis [facility] [address] [address] 07/21/2024 Ariadne Long Atherosclerosis of artery of both lower extremities I70.203 Assessments Encounter Date Diagnosis (ICD Code) Assessment Notes Treatment Notes Treatment Clinical Notes Section Notes 07/21/2024 Atherosclerosis of artery of both lower extremities (ICD-10 - I70.203) Plan Of Treatment Next Appt Details Follow Up: 2 Months, Reason: Provider Name:Ariadne ordoñez, 01/26/2025 09:30:00 AM, [address] [place] [address], [phone], Procedure Notes * Category Sub-Category Detail Notes [...] instrumentation by the physician of record - 01432, Q8 Nail Reduction Nail Reduction Trimming of dyst rophic nails performed to reduce/remove overall nail length and girth, by manual and electrical means with use of a nail nipper and/or dremel, to more viable healthy nail plate or bed tissue 6-10 (R5564-B1) Progress Notes * Hector DIAZ HDOB:1945 (79 yo M)Acc No.[id number]:07/21/2024 Progress Note Patient:?Hector DIAZ Provider:?Ariadne Long DPM :1945???Age:79 Y???Sex:Male Fred e:07/21/2024 Address:[address] [place] [address] [place], [id number] Pcp:Darek Ronquillo MD Subjective: * Chief Complaints: [...] instrumentation by the physician of record - 16109, Q8.?Nail Reduction:?Nail Reduction?Trimming of dystrophic nails performed to reduce/remove overall nail length and girth, by manual and electrical means with use of a nail nipper and/or dremel, to more viable healthy nail plate or bed tissue 6-10 (G0127- Q8).? * Procedure Codes:?G0127 WANDA ING DYSTROPHIC NAILS ANY #, Modifiers: XS , [id number] TRIM SKIN LESIONS, OVER 4, Modifiers: XS , Q8 * Follow Up:?2 Months * Images: * Sign off status: Completed true * Provider:?Ariadne Long DPM Date:? Generated for Sera swenson/Joey/Javier on:?10/22/2024 07:54 AM EDT History and Physical Notes * [...]
--- OUTSIDE RECORDS SUMMARY | 2024-10-22 07:55 | XMS_ITS ---
Author Organization [facility] Address [address] [place] [address] Care Team Providers Care Automotive Metalsmith Name Role Phone Darek Ronquillo MD Primary Care Provider Soren Jaimes Jr Unavailable [phone] Allergies No Known Allergies REASON FOR VISIT [...] Problem Status W/U Status Risk Notes Problem 373255525 Anemia, unspecified type (D64.9) Active confirmed Vital Signs Temperature 97.5 degrees Fahrenheit 08/10/19 25 Blood pressure systolic 000 mm Hg 08/10/19 25 Blood pressure diastolic 00 mm Hg 025 Height 5 ft 11 in in 08/10/2024 Weight 180 lbs 08/10/2024 BMI 25.10 kg/m2 08/10/2024 Encounters Encounter Location Date Provider Diagnosis [facility] [address] [place] [address] 08/10/2024 Soren Boothe Jr Anemia, unspecified type [...] NENAMARCO A STEFFENDOB:1945 ( 79 yo M)Acc No.[id number]:08/10/2024 Progress Notes Patient:?COURT ANTHONYIC Provider:?Soren Boothe MD :1945???Age:79 Y???Sex:Male Fred e:08/10/2024 Address:[address] [place], [place] [address] Pcp:Darek Ronquillo MD Subjective: * Chief Complaints: [...] Anemia, Right maxillary sinus tumor, 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 * Surgical History:?Coronary a rtery bypass grafting [...] MD Date:?0 08/10/2024 Generated for Sera swenson/Joey/Javier on:?10/22/2024 07:54 AM [...] basically normal. He had undergone colonoscopy in [place] 3 months prior to this. Following discharge, [...]
--- OUTSIDE RECORDS SUMMARY | 2024-10-22 07:55 | XMS_ITS ---
Author Organization [facility] [place] Address [address] [place] [address] Care Team Providers Care Mold Press Operator Name Role Phone Darek Ronquillo MD Primary Care Provider Ariadne Doan Unavailable [phone] Allergies Allergen (clinical drug ingredient) Drug/Non Drug Allergy documented on EMR Reaction Allergy Type Onset Date Status hydromorphone Dilaudid hallucinations Drug Allergy Active tramadol traMADol HCl hallucinations Drug Allergy Active REASON FOR VISIT At Risk Footcare, Painful Nail(s) aggrevated by shoes and causing difficulty standing/walking. Medications Medication SIG (Take, Route, Frequency, Duration) Notes Start Date End Date Status PreserVision AREDS 2 Active Digoxin 125 MCG 1 tablet Orally [...] e a day for 30 day(s) Active Ferrous Sulfate 325 (65 Fe) MG 1 tablet Orally Once a day for 30 day(s) Active Bumetanide 2 MG 1 tablet Orally Once a day for 30 day(s) Active Vitamin D3 Active Omeprazole 20 MG 1 capsule 30 [...] Signs Height 5 ft 11 in in 10/21/2024 Weight 180 lbs 10/21/2024 BMI 25.1 kg/m2 10/21/2024 Blood pressure systolic 120 mm Hg 10/22/19 25 Blood pressure diastolic 60 mm Hg 025 Encounters Encounter Location Date Provider Diagnosis [facility] [address] [address] 10/21/2024 Ariadne Long Atherosclerosis of artery of both lower extremities I70.203 Assessments Encounter Date Diagnosis (ICD Code) Assessment Notes Treatment Notes Treatment Clinical Notes Section Notes 10/21/2024 Atherosclerosis of artery of both lower extremities (ICD-10 - I70.203) Plan Of Treatment Next Appt Details Follow Up: 2 Months, Reason: Provider Name:Ariadne ordoñez, 01/26/2025 09:30:00 AM, [address] [place] [address], [phone], Procedure Notes * Category Sub-Category Detail Notes Keratoma Treatment Parring or Cutting o f Benign Hyperkeratotic Lesion(s) (-56) 2-4 Lesions - Due to the at risk nature of the patients medical condition as documented in the exam findings, performance of this keratoderma treatment is medically necessary as its management by an unskilled/untrained nonprofessional would put this patients foot and overall health at risk. Therefore, the benign hyperkeratotic lesions, (2) in total, locations as stated and described in the exam ( plantar medial TA, T5 ), were pared, and/or cut utilizing a sterile 15 blade, tissue nippers, and/or power dremel instrumentation by the physician of record - 50596 Nail Reduction Nail Reduction (-27) Trimming o f all dystrophic nails - Due to the at risk nature of the patients medical condition as documented in the exam findings, performance of this nail treatment is medically necessary as its management by an unskilled/untrained nonprofessional would put this patients foot and overall health at risk. Therefore, the dystrophic nails, in locations as stated and described in the exam ( T1, T2, T3, T4, T6, T7, T8, T9, ), were debrided by the phisician of record to reduce/remove overall nail length and girth, by manual and electrical means with use of a nail nipper and/or dremel, to more viable healthy nail plate or bed tissue - (I7232-R9) Progress Notes * Hector DIAZ HDOB:1945 (79 yo M)Acc No.[id number]:10/21/2024 Progress Note Patient:?ANDREAANDREWHector H Provider:?Ariadne Long DPM :1945???Age:79 Y???Sex:Male Fred e:10/21/2024 Address:[address] [place], [place] [address] Pcp:Darek Ronquillo MD Subjective: * Chief Complaints: * ???At Risk FootcarePainful N ail(s) aggrevated by shoes and causing difficulty standing/walking. * HPI: ???At Risk footcare:?Pt States Last PCP Visit:?Date?10/19/2024 * ROS:?General/Constitutional:?Nausea?denies.?Vomiting?denies.?Hunger Thirst?denies.?Loss appetite?denies.?Chills?denies.?Fatigue?denies.?Fever?denies.?Night Sweats?denies.?Unexplained weight loss?denies.?Unexplained [...] couple a week ?Tobacco Control (Standard)?Tobacco use:?Nonsmoker ???Miscellaneous:?Caffeine: yes, 2 cups coffee and 1 soda per day. ?Children: yes, 3. ?Exercise: no. ?Marital status: . 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 * Medications:?TakingPreserVis ion AREDS 2 Digoxin 125 [...] B/L.?EDEMA (C):?absent, B/L.?Nails: ?NAILS are:? Elongated, overgrown, dystrophic, TA, T1, T2, T3, T4, T5, T6, T7, T8, T9.?Dermatologic: ?SKIN FINDINGS:?Skin exam reveals Keratotic lesion(s) located at , Medial plantar, TA , T5.?Neurological: ?SENSORY:?Neurological exam reveals intact sensorium, pain sensation normal, vibration sensation intact, pinprick sensation is normal in the lower extremities, Pt denies, anesthesia, burning, paresthesia, tingling, B/L.? Assessment: * Assessment: 1.?Atherosclerosis of artery of both lower extremities - I70.203 (Primary)??? Plan: * Treatment: * Procedures:?Keratoma Treatment:?Parring or Cutting of Benign Hyperkeratotic Lesion(s)?(-56) 2-4 Lesions - Due to the at risk nature of the patients medical condition as documented in the exam findings, performance of this keratoderma treatment is medically necessary as its management by an unskilled/untrained nonprofessional would put this patients foot and overall health at risk. Therefore, the benign hyperkeratotic lesions, (2) in total, locations as stated and described in the exam ( plantar medial TA, T5 ), were pared, and/or cut utilizing a sterile 15 blade, tissue nippers, and/or power dremel instrumentation by the physician of record - 60859.?Nail Reduction:?Nail Reduction?(-27) Trimming of all dystrophic nails - Due to the at risk nature of the patients medical condition as documented in the exam findings, performance of this nail treatment is medically necessary as its management by an unskilled/untrained nonprofessional would put this patients foot and overall health at risk. Therefore, the dystrophic nails, in locations as stated and described in the exam ( T1, T2, T3, T4, T6, T7, T8, T9, ), were debrided by the phisician of record to reduce/remove overall nail length and girth, by manual and electrical means with use of a nail nipper and/or dremel, to more viable healthy nail plate or bed tissue - (A0601-G8).? * Procedure Codes:?G0127 WANDA ING DYSTROPHIC NAILS ANY #, Modifiers: XS , [id number] TRIM SKIN LESIONS, 2 TO 4, Modifiers: XS , Q8 * Follow Up:?2 Months * Images: * Sign off status: Completed true * Provider:?ASHLEIGH CorreaM Date:? Generated for Sera swenson/Joey/eTransmitting on:?10/22/2024 07:55 AM EDT History and Physical Notes * HPI (History of Present Illness) Category Sub-Category Detail Notes Category Not es At Risk footcare Pt States Last PCP Visit: Date: 5 Examination Category Sub-Category Detail Notes Category Not es Neurological SENSORY: Neurological exa m reveals intact sensorium, pain sensation normal, vibration sensation intact, pinprick sensation is normal in the lower extremities, Pt denies, anesthesia, burning, paresthesia, tingling, B/L Dermatologic SKIN FINDINGS: Skin exam reveal s Keratotic lesion(s) located at , Medial plantar, TA , T5 Vascular DP PULSES (B): 0/4, B/L PT PULSES (B): 0/4, B/L CAPILLARY FILL TIME: delayed, all digits , B/L TEMPERTURE GRADIENT (C): decreased, cool to cool, proximal to distal, B/L TROPHIC CONDITION-TEXTURE/ELASTICITY/TURGOR/HAIR GROWTH (B): decreased, B/L EDEMA (C): absent, B/L PIGMENTATION: pale, B/L Nails NAILS are: Elongated, overg rown, dystrophic, TA, T1, T2, T3, T4, T5, T6, T7, T8, T9
--- OUTSIDE RECORDS SUMMARY | 2024-10-22 07:55 | XMS_ITS ---
Author Organization [facility] Address [address] [place] [address] Care Team Providers Care Resource Room Teacher Name Role Phone Darek Ronquillo MD Primary Care Provider Soren Jaimes Jr REASON FOR VISIT Capsule endoscopy / FYI Problems Problem Type SNOMED Code ICD Code Onset Dates Problem Status W/U Status Risk Notes Problem 77423751 Heme positive stool (R19.5) Active confirmed Procedures Procedure Date Ordered Date Performed Result Body Sit e VIDEO CAPSULE ENDOSCOPY 10/06/2024 N/A Encounters Encounter Location Date Provider Diagnosis [facility] [address] [place] [address] 10/06/2024 Soren Boothe Jr Anemia, unspecified type [...] * STEFFEN ANTHONYDOB:1945 ( 79 yo M)Acc No.[id number]:10/06/2024 Patient:?COURT ANTHONYIC :1945???Age:79 Y???Sex:Male Address:[address] [place] [address] [place], [address] Subjective: * Chief Complaints: * ???Capsule endoscopy / FYI * Medical History:? * Surgical History:? * Hospitalization/Major Diagno stic Procedure:? * Medications:? Objective: * Vitals:? * Physical Examination:? Assessment: * Assessment: 1.?Anemia, unspecified type - D64.9 (Primary)???2.?Heme positive stool - R19.5??? Plan: * Treatment: 2.?Heme positive stool?Procedure: VIDEO CAPSULE ENDOSCOPY * Procedure Codes:? * true * Date:? Generated for Sera swenson/oJey/eTransmitting on:?10/22/2024 07:55 AM EDT
--- NOTE | 2024-11-02 06:40 | MHC.OFFVIS ---
Intake Visit Reasons: Video Capsule - Lucas (Dr. Boothe) Allergies hydromorphone [From Dilaudid] Adverse Reaction (Verified 10/19/24 09:34) Confusion [facility] Medical History (Updated 10/19/24 @ 10:12 by Gary Alvarado MD) Anemia Acute congestive heart failure Acute upper gastrointestinal bleeding Acute blood loss anemia COPD (chronic obstructive pulmonary disease) Hyperlipidemia Afib Nasal sinus tumor CAD (coronary artery disease) Surgical History Hx of CABG Family History (Updated 10/19/24 @ 09:59 by Mckayla Giraldo MA) Mother No problems noted. Father No problems noted. Social History Household Members: Spouse Housing: House Do you presently have visiting nurse or other home services: No Alcohol intake: current Alcohol intake frequency: holidays/special occasions only Alcohol type: beer Patient Tobacco Use Status: Former Tobacco user Tobacco use type: Cigar e-Cigarette/Vaping Use: Former Use Advance Directives Date on File: 02/16/22 service: No Current occupational status: retired Cognitive needs: No Hearing needs: No Vision needs: Yes (rx glasses) Office Procedures AMB Capsule Endoscopy Procedure Notes: Capsule Endoscopy: Date of Service:10/22/24 Indication: anemia Findings: capsule spent longer than expected in esophagus-about 2 hrs, 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 stomach mucosa looked normal. Duodenum entered at 2 hr 36 min. Small non bleeding AVM noted at 2 hr 43 and possible small clot at 3 hr 25 min. Scattered lymphangiectasia noted which are benign. cecum entered at 5 hr 15 min. No active bleeding seen on study Conclusion: ?GEJ stricture AVM lymphangiectasia could consider push enteroscopy for further analysis- check for hx of dysphagia Capsule Endoscopy CPT Code: 88570 - Capsule Endoscopy Assessment & Plan Assessment & Plan (1) Anemia: Code(s): D64.9 - Anemia, unspecified Category: Medical Qualifiers: Anemia type: unspecified type Qualified Code(s): D64.9 - Anemia, unspecified Plan: as above Coding Level of Care Code Procedure Only Diagnoses Anemia, unspecified type D64.9 Anemia type: unspecified type CPT Codes AMB Capsule Endoscopy - Capsule Endoscopy CPT Code: 96529 - Capsule Endoscopy ([id number])
== END 2024-10-22 08:04 | disposition home or self-care (01) ==
LOC: HO.HGI 07:52
PROVIDERS: PCP Internal Medicine; Visit Provider Internal Medicine Gastroenterology
DX: D64.9 Anemia, unspecified (principal); Q27.33 Arteriovenous malformation of digestive system vessel
CPT/HCPCS: 91110

== ENCOUNTER → 2024-10-22 07:51 | Outpatient (BNVA) | payer MEDICARE, SELFPAY | PROVIDERS: PCP Internal Medicine; Visit Provider Internal Medicine Gastroenterology | DX: D64.9 Anemia, unspecified (principal) | CPT/HCPCS: 91110 ==

== ENCOUNTER 2024-12-17 17:14 | Inpatient (IN) | payer MEDICARE, SELFPAY ==
[2024-12-17] VITALS (10 sets, daily range): BP systolic 119–134; BP diastolic 59–67; PULSE 81–120; RESP 14–28; TEMP 36.9–38.6; O2SAT 82–100; BMI 23.7
--- NOTE | ~2024-12-17 | CT_ITS ---
CLINICAL HISTORY: dyspnea and hypoxia CT chest with contrast Comparison: None Findings: Redemonstration of the small bilateral pleural effusions. Bilateral pulmonary opacities are multifocal and nonspecific. Differential considerations include pneumonitis, pulmonary edema, multifocal pneumonia superimposed on chronic lung disease. Moderate to severe emphysematous changes in the both lungs with apical predominance. Architectural distortion with a opacity measuring 2.5 cm is nonspecific in the right upper lobe (imaged 39 of series 4). Differential considerations include scarring. None neoplasm not excluded given architectural distortion appearance spiculation. No pneumothorax. Mediastinal and hilar nodes are nonspecific and may be reactive. Subcarinal lymph node measures 1.8 cm short axis. Calcified and noncalcified plaque involving the tortuous aorta. Vascular calcifications including coronary arteries. [id number] cardiomegaly with multi chamber enlargement heart and small pericardial effusion. Subcutaneous edema is diffuse. Free fluid in the imaged abdomen may reflect mild ascites or fluid of the anasarca. Infected fluid is not excluded by imaging. Fat deposition noted in the partially imaged liver. Volume loss of the partially imaged pancreas. Artifacts noted including from positioning of the upper extremities. Degenerative changes include imaged shoulders and imaged spine. Post sternotomy changes noted. Mild vertebral height losses appear old and accentuated by multifocal Schmorl's nodes. IMPRESSION: 1. 2.5 cm lesion in the right upper lobe is nonspecific and may reflect scarring with architectural distortion. Lung neoplasm also considered by initial CT. Additional diagnostics may be informative as clinically indicated. 2. Small bilateral pleural effusions. 3. Pulmonary opacities are nonspecific and may reflect pneumonitis and/or multifocal pneumonia. 4. Edema superimposed on chronic lung disease also considered with cardiomegaly and emphysematous changes. This document has been electronically signed by: Hector Verma MD on 12/17/2024 20:09:50
--- NOTE | ~2024-12-17 | XR_ITS ---
CLINICAL HISTORY: shortness of breath --- Additional Notes or Special Instructions: No answer @ 2053 - CE 1 view chest x-ray Comparison: None available Findings: Moderate bilateral pulmonary opacities are nonspecific and may reflect pulmonary edema or pneumonitis, given interstitial predominance. Mild-moderate cardiomegaly accentuated by AP technique. Post sternotomy changes noted with multiple surgical clips. Small pleural effusions, left greater than right. No pneumothorax in this portable image. Degenerative changes include the imaged shoulders and imaged AC joints. IMPRESSION: 1. Moderate pulmonary opacities concerning for pneumonitis and/or pulmonary edema. 2. Small bilateral pleural effusions. This document has been electronically signed by: Hector Verma MD on 12/17/2024 19:09:21
--- NOTE | 2024-12-17 17:21 | ECG_ITS ---
Test Reason : DYSPNEA Blood Pressure : */* mmHG Vent. Rate : 130 BPM Atrial Rate : 75 BPM P-R Int : 196 ms QRS Dur : 146 ms QT Int : 396 ms P-R-T Axes : -89 -76 -66 degrees QTcB Int : 582 ms Poor data quality Undetermined rhythm Left axis deviation Right bundle branch block Inferior infarct , age undetermined Anteroseptal infarct , age undetermined Abnormal ECG When compared with ECG of 14-Feb-2022 09:03, Current undetermined rhythm precludes rhythm comparison, needs review Right bundle branch block is now Present Anteroseptal infarct is now Present Inferior infarct is now Present Referred By: Sergio Gabriel Electronically Signed By: SHANNON ANGULO MD
--- NOTE | 2024-12-17 17:21 | ED_ITS ---
HPI - General Adult General Chief complaint: Dyspnea Stated complaint: sob ,feet swelling hx. copd Time Seen by Provider: 12/17/24 17:32 History of Present Illness ED Provider: Storm Tomlin MD HPI narrative: 79-year-old male with a history of AFib , CAD status post remote CABG,, lung nodule , half path Questionable underlying COPD. The patient has no O2 requirement at baseline. Most of the history provided by who is at the bedside because of the patient's clinical condition. She reports that he has been having progressively worsening shortness of breath even on minimal exertion over the past week. No falls or injuries. He has chronic clear white phlegm/sputum that is unchanged. Chronic leg edema since CABG. Related Data Home Medications ?Medication ?Instructions ?Recorded ?Confirmed atorvastatin 40 mg tablet 40 mg PO DAILY@169903/19/22 12/17/24 fenofibrate nanocrystallized 145 145 mg PO DAILY@0703/19/22 12/17/24 mg tablet dutasteride 0.5 mg capsule 0.5 mg PO DAILY@17008/06/22 12/17/24 (Avodart) cholecalciferol (vitamin D3) 10 10 mcg PO DAILY@0709/05/23 12/17/24 mcg (400 unit) tablet ferrous sulfate 325 mg (65 mg 325 mg PO BID@0700,169909/05/23 12/17/24 iron) tablet omeprazole 20 mg capsule,delayed 20 mg PO DAILY@0609/05/23 12/17/24 release vit C 250 mg-vit E 90 mg-zinc 40 1 tab PO BID@1200,169909/05/23 12/17/24 mg-copper 1 cc-wqocgu-mkoyev capsule (PreserVision AREDS-2) digoxin 125 mcg (0.125 mg) tablet 125 mcg PO SUMOTUTHFR 09/29/24 12/17/24 metoprolol succinate 25 mg 25 mg PO DAILY@169912/17/24 12/17/24 tablet,extended release 24 hr midodrine 2.5 mg tablet 2.5 mg PO TID@0700,1200,1700 12/17/24 12/17/24 potassium chloride 20 mEq 20 meq PO DAILY@0712/17/24 12/17/24 tablet,extended release rivaroxaban 20 mg tablet (Xarelto) 20 mg PO DAILY@1700 12/17/24 12/17/24 Previous Rx's ?Medication ?Instructions ?Recorded bumetanide 2 mg tablet 2 mg PO BID@0700,1700 90 days #180 02/20/24 tabs Allergies Allergy/AdvReac Type Severity Reaction Status Date / Time hydromorphone [From Dilaudid] AdvReac Confusion Verified 12/17/24 17:24 [facility] Past Medical History Medical History Gastritis Gross hematuria Chronic atrial fibrillation (HFpEF) heart failure with preserved ejection fraction Low blood pressure Anemia Acute congestive heart failure Acute upper gastrointestinal bleeding Acute blood loss anemia COPD (chronic obstructive pulmonary disease) Hyperlipidemia Afib Nasal sinus tumor CAD (coronary artery disease) Surgical History Hx of CABG Family History Family History Mother No problems noted. Father No problems noted. Social History Social History Household Members: Spouse and Family Housing: House Do you presently have visiting nurse or other home services: Yes Alcohol intake: current Alcohol intake frequency: 0-2 drinks per day Alcohol type: beer Comment: Patient reports 3 beers in the afternoon and 1 mixed drink before bed, bon Patient Tobacco Use Status: Former Tobacco user Tobacco use type: Cigar e-Cigarette/Vaping Use: Never Used Advance Directives Date on File: 02/16/22 service: No Current occupational status: retired Cognitive needs: No Hearing needs: No Vision needs: Yes (rx glasses) Physical Exam ED Vital Signs: Vital Signs - 24 hr 12/17/24 17:23 Temperature 98.4 F Pulse Rate 120 H Respiratory Rate 26 H Blood Pressure 131/63 Pulse Oximetry 82 L Oxygen Delivery Method Room Air BMI result Body Mass Index 23.7 Const Other: EXAM: Gen: Alert, awake, well appearing, well hydrated. Appears dyspneic, tachypneic rate about 25 Head: Atraumatic Eyes: Anicteric, Normal conjunctiva. ENT: Moist mucosa, no pallor. ? Neck: Supple. Skin: ?No observable rash or bruising on exposed or examined skin Respiratory: Rhonchi, transmitted upper airway sounds, decreased air entry and tachypnea at about 25. Cardiovascular: Regular rate and rhythm. No murmurs or rub. Well perfused periphery, warm extremities. Left greater than right edema with compression stockings place Abdominal: No FOCAL TENDERNESS. Soft, no objective distension. No palpable masses or obvious organomegaly. ?No guarding, no rebound tenderness or other peritoneal findings. : No flank tenderness. Neuro: Alert. Gross movement of all extremities intact. ? Psych: Calm. Cooperative. MSK: No grossly visible deformity. Vital signs: See flowsheet Course Course Course Narrative: RME, this is a rapid medical exam performed by Andrez Gabriel please refer to primary provider for complete H&P- 79-year-old male with history of AFib, congestive heart failure hypotension, gastritis presents for evaluation of shortness of breath. His oxygen saturation on room air in triage was 84%, he was placed on nasal cannula in his oxygen saturation improved to 99% on room air. Plan for labs, blood cultures, chest x-ray, viral swabs. He does have significant leg swelling, a BNP was also added Medications Administered Generic Name Dose Route Start Last Admin Trade Name Freq PRN Reason Stop Dose Admin Atorvastatin Calcium 40 mg 12/18/24 17:00 12/18/24 16:13 Atorvastatin Calcium 40 Mg Tablet PO 40 mg DAILY@1700 SHAWANDA Administration Budesonide 0.5 mg 12/17/24 21:15 12/18/24 20:23 Budesonide 0.5 Mg/2 Ml Ampul.Neb INHALE 0.5 mg RBID SHAWANDA Administration Ceftriaxone Sodium 2 gm 12/18/24 17:30 12/18/24 18:01 Ceftriaxone Sodium 2 Gm Vial IVPUSH 2 gm Q24H SHAWANDA Administration Digoxin 0.125 mg 12/18/24 09:00 12/18/24 10:43 Digoxin 0.125 Mg Tablet PO 0.125 mg SUMOTUTHFR SHAWANDA Administration Protocol Doxycycline Monohydrate 100 mg 12/18/24 17:00 12/18/24 16:13 Doxycycline Monohydrate 100 Mg Capsule PO 100 mg Q12H SHAWANDA Administration Fenofibrate 134 mg 12/18/24 07:00 12/18/24 10:48 Fenofibrate,Micronized 134 Mg Capsule PO 134 mg DAILY@0700 [facility] Administration Ferrous Sulfate 324 mg 12/18/24 11:00 12/18/24 16:13 Ferrous Sulfate 324 Mg Tablet. PO 324 mg BID@0700,1700 [facility] Administration Folic Acid 1 mg 12/18/24 09:00 12/18/24 10:07 Folic Acid 1 Mg Tablet PO 1 mg DAILY SHAWANDA Administration Furosemide 40 mg 12/18/24 09:00 12/18/24 18:01 Furosemide 40 Mg/4 Ml Vial IVPUSH 40 mg BID@0900,1800 [facility] Administration Protocol Metoprolol Succinate 25 mg 12/17/24 21:45 12/18/24 16:13 Metoprolol Succinate Er 25 Mg Tab.Er.24h PO 25 mg DAILY@1700 [facility] Administration Protocol Omeprazole 20 mg 12/18/24 06:30 12/18/24 06:23 Omeprazole 20 Mg Capsule. PO 20 mg DAILY@0630 [facility] Administration Potassium Chloride 20 meq 12/18/24 09:00 12/18/24 10:07 Potassium Chloride Er 20 Meq Tab.Er.Prt PO 20 meq DAILY SHAWANDA Administration Prednisone 40 mg 12/18/24 15:45 12/18/24 16:13 Prednisone 20 Mg Tablet PO 40 mg DAILY SHAWANDA Administration Rivaroxaban 20 mg 12/18/24 17:00 12/18/24 16:13 Rivaroxaban 20 Mg Tablet PO 20 mg DAILY@170 [facility] Administration Senna 17.2 mg 12/17/24 21:00 12/18/24 20:20 Sennosides 8.6 Mg Tablet PO Not Given BEDTIME [facility] Sodium Chloride 3 ml 12/18/24 00:00 12/18/24 16:14 0.9 % Sodium Chloride Flush 3 Ml Syringe IVFLUSH 3 ml QSHIFT [facility] Administration Thiamine HCl 100 mg 12/18/24 09:00 12/18/24 10:07 Thiamine Hcl 100 Mg Tablet PO 100 mg DAILY [facility] Administration Vitamin D 10 mcg 12/18/24 11:00 12/18/24 10:43 Cholecalciferol (Vitamin D3) 10 Mcg Tablet PO 10 mcg DAILY@0700 [facility] Administration Discontinued Medications Generic Name Dose Route Start Last Admin Trade Name Freq PRN Reason Stop Dose Admin Ceftriaxone Sodium 2 gm 12/17/24 17:35 12/17/24 17:59 Ceftriaxone Sodium 2 Gm Vial IVPUSH 12/17/24 17:36 2 gm ONCE ONE Administration Cyclobenzaprine HCl 5 mg 12/18/24 04:05 12/18/24 04:22 Cyclobenzaprine Hcl 5 Mg Tablet PO 12/18/24 04:06 5 mg ONCE ONE Administration Ferrous Sulfate 324 mg 12/18/24 07:00 12/18/24 11:44 Ferrous Sulfate 324 Mg Tablet.Dr PO Not Given BID@0700,1700 [facility] Furosemide 60 mg 12/17/24 17:49 12/17/24 18:02 Furosemide 100 Mg/10 Ml Vial IVPUSH 12/17/24 17:50 60 mg ONCE ONE Administration Protocol Acetaminophen 1,000 mg in 100 mls @ 400 mls/hr 12/17/24 17:35 12/17/24 18:19 Ofirmev IV 12/17/24 17:49 Infused ONCE ONE Infusion Vancomycin HCl 2,000 mg in 500 mls @ 250 mls/hr 12/17/24 17:35 12/17/24 21:50 Vancomycin/Ns IV 12/17/24 19:34 Infused ONCE ONE Infusion Albumin Human 100 mls @ 133.333 mls/hr 12/17/24 17:45 12/17/24 19:20 Kedbumin 25 % IV 12/17/24 19:29 Infused Q1H SHAWANDA Infusion Vancomycin HCl 750 mg/ Sodium 265 mls @ 265 mls/hr 12/18/24 08:00 12/18/24 11:08 Chloride IV Infused Q12H SHAWANDA Infusion Iohexol 100 ml 12/17/24 19:39 12/17/24 19:39 Iohexol 350 Mg/Ml 100 Ml Infus..Btl IV 12/17/24 19:40 65 ml ONCE ONE Administration Potassium Chloride 40 meq 12/17/24 21:06 12/17/24 22:36 Potassium Chloride Er 20 Meq Tab.Er.Prt PO 12/17/24 21:07 40 meq ONCE ONE Administration Rivaroxaban 20 mg 12/17/24 19:15 12/17/24 19:46 Rivaroxaban 20 Mg Tablet PO 12/17/24 19:16 20 mg ONCE ONE Administration Vitamin D 10 mcg 12/18/24 07:00 12/18/24 11:44 Cholecalciferol (Vitamin D3) 10 Mcg Tablet PO Not Given DAILY@0700 [facility] Procedures Procedure Narrative Procedure Narrative: EMERGENCY ULTRASOUND INTERPRETATION-Limited Echocardiography [This study was ordered, performed, and interpreted by myself. The study reveals: Impression: LIMITED BY ATRIAL FIBRILLATION AND RAPID RATE NORMAL LV FUNCTION, NO RV DYSFUNCTION, NO PERICARDIAL EFFUSION] [Emergent Cardiac for Indication: Views Used: PLAX, PSSA, A4, IVC Pericardial Effusion/Tamponade Findings: NONE RV Dilation (> LV diam in 4ch apical): NONE Global LV Fxn: LIMITED BY ATRIAL FIBRILLATION NORMAL IVC Dilation and Resp Variation: PLETHORIC Performed by: MD Nabor Images were stored CPT:09248] _ EMERGENCY ULTRASOUND INTERPRETATION-Point of Care Thoracic: IMPRESSION: BILATERAL APICAL B-LINES SUGGESTING PULMONARY EDEMA OR INFECTIOUS PROCESS. PLEURAL EFFUSION WELL VISUALIZED RIGHT SIDE Indication: Dyspnea Findings: Right Pleural 2ICS: ?B-LINES Right PLAPS: EFFUSION Left Pleural 2ICS: B-LINES Performed by: Storm Tomlin MD ? Images were stored CPT: 45436,96753,13186] Medical Decision Making Medical Decision Making MDM Narrative: 79-YEAR-OLD MALE WITH AFIB CHF CAD, HALF PACK WITH PROGRESSIVELY WORSENING SHORTNESS OF BREATH. FOUND TO BE FEBRILE TACHYCARDIC AND HYPOXIC NEW OXYGEN REQUIREMENT. SEPSIS ACTIVATED GIVEN THE PRESENTATION AND VITAL SIGNS. PATIENT AWAKE ALERT NOT DISTRESSED OXYGEN IMPROVED OVER 90% WITH NASAL CANNULA SUPPLEMENTATION. BROAD-SPECTRUM ANTIBIOTICS INITIATED. ECHO LIMITED BY AFIB BUT NO SUGGESTION OF LV DYSFUNCTION OR IV DYSFUNCTION/DILATION. NO PERICARDIAL EFFUSION. IVC IS LARGE PLETHORIC. B-LINES SEEN WITH EFFUSION SUGGESTING FLUID OVERLOAD , THIS IS LESS LIKELY BILATERAL PNEUMONIA BUT COULD BE IN THE SCENARIO. Differential Diagnosis Differential Diagnoses: The differential diagnosis associated with the presentation includes SEPSIS, SEVERE SEPSIS, DECOMPENSATED HFREF, PNEUMONIA, PLEURAL EFFUSION Lab Data [facility] Lab Attestation statement: I reviewed the patient's lab results. 12/18/24 06:53 12/18/24 06:53 Labs: Lab Results 12/17/24 12/17/24 12/17/24 Range/Units 17:56 17:58 18:52 WBC 6.2 (4.8-10.8) X10*3/uL RBC 2.89 L (4.60-5.80) X10*6/uL Hgb 9.7 L (14.0-18.0) g/dl Hct 30.5 L (42.0-52.0) % MCV 105.5 H (80.0-98.0) fL MCH 33.6 H (27.0-33.0) pg MCHC 31.8 (31.0-36.0) g/dl RDW 17.9 H (11.0-16.0) % Plt Count 230 (160-400) X10*3/uL MPV 10.1 (9.4-12.4) fL Immature Gran % (Auto) 0.2 (0.0-0.4) % Neut % (Auto) 75.9 H (45-73) % Lymph % (Auto) 9.8 L (20-40) % Runnels % (Auto) 12.4 H (2-11) % Eos % (Auto) 1.0 (0-4) % Baso % (Auto) 0.7 (0-2) % Lymph # (Auto) 0.6 L (1.2-4.9) X10*3/uL [place]els # (Auto) 0.8 (0.1-1.2) X10*3/uL Eos # (Auto) 0.1 (0.0-0.4) X10*3/uL Baso # (Auto) 0.0 (0.0-0.2) X10*3/uL Abs Immat Gran (auto) 0.01 (0.00-0.03) X10*3/uL Absolute Neuts (auto) 4.7 (2.0-8.3) x10*3/uL Absolute Nucleated RBC 0.000 (0.0-0.012) X10*3/uL Nucleated RBC % (auto) 0.0 (0.0-0.2) /100WBC Sodium 136 (135-145) mmol/L Potassium 3.6 (3.3-5.1) mmol/L Chloride 103 (96-108) mmol/L Carbon Dioxide 27 (22-29) mmol/L Anion Gap 10 L (12-20) BUN 18 H (9-16) mg/dL Creatinine 0.93 (0.5-1.4) mg/dL Estim Creat Clear Calc 68.5 Estimated GFR > 60 Random Glucose 96 (60-115) mg/dL Lactic Acid 1.5 (0.5-2.0) mmol/L Calcium 9.0 (8.4-10.2) mg/dL Magnesium 1.6 (1.6-2.6) mg/dL Total Bilirubin 0.5 (0.0-1.0) mg/dL AST 43 H (5-37) U/L ALT 11 (0-40) U/L Alkaline Phosphatase 57 (39-117) U/L Troponin I High Sens 32.2 (<3.5-35.0) ng/L B-Natriuretic Peptide 730 H (<100) pg/mL Total Protein 6.4 L (6.5-8.0) g/dL Albumin 3.2 L (3.5-5.0) g/dL Lipase 57 (8-78) U/L TSH 4.44 H (0.32-4.0) uIU/mL Urine Color Yellow Urine Appearance Clear Urine pH 6.5 (5.0-9.0) Ur Specific [place] 1.015 (1.005-1.025) Urine Protein 300 (3+) H (Neg-Trace) mg/dL Urine Glucose (UA) Negative (Negative) mg/dL Urine Ketones Negative (Negative) mg/dL Urine Blood Large (3+) H (Negative) Urine Nitrite Negative (Negative) Ur Leukocyte Esterase Negative (Negative) Urine RBC >20 H (0-2) /HPF Urine WBC 0-5 (0-5) /HPF Ur Squamous Epith Cells 0-2 (0-2) /HPF Urine Bacteria None Seen (None Seen) Hyaline Casts 0-2 (0-2) /LPF Influenza Type A (PCR) NEGATIVE (Negative) Influenza Type B (PCR) NEGATIVE (Negative) RSV RNA Qual (PCR) NEGATIVE (Negative) SARS-CoV-2 RNA (RT-PCR) NEGATIVE (Negative) Independent Interpretation I performed an independent interpretation of an: EKG Critical Care Time Critical Care Time Critical Care Time: Yes Total Critical Care Time: 30 Attestation: ED Critical Care: Authorized and Performed by: Storm Tomlin MD Total critical care time: Approximately 30 Due to a high probability of clinically significant, life threatening deterioration, the patient required my highest level of preparedness to intervene emergently and I personally spent this critical care time directly and personally managing the patient. This critical care time included obtaining a history; examining the patient; pulse oximetry; ordering and review of studies; arranging urgent treatment with development of a management plan; evaluation of patient's response to treatment; frequent reassessment; and, discussions with other providers. This critical care time was performed to assess and manage the high probability of imminent, life-threatening deterioration that could result in multi-organ failure. It was exclusive of separately billable procedures and treating other patients and teaching time. Discharge Plan Discharge Clinical Impression: Dyspnea Patient Disposition: Admitted As Inpatient Interventions: Admission Worksheet (ED) Last Done: 12/18/24 14:38 Discharge Date/Time: 12/18/24 15:42
--- NOTE | 2024-12-17 17:36 | ED_ITS ---
HPI - SOB/Dyspnea General Chief Complaint: Dyspnea Stated Complaint: sob ,feet swelling hx. copd Time Seen by Provider: 12/17/24 17:32 History of Present Illness ED Provider: catina HPI Narrative: 79 M hx Afib, CHF, with progressively worsening dyspnea x 1 wk. SEPSIS ACTIVATED AT TIME FEVER NOTED: 1730 Related Data Home Medications ?Medication ?Instructions ?Recorded ?Confirmed atorvastatin 40 mg tablet 40 mg PO DAILY@1700 03/19/22 12/10/24 fenofibrate nanocrystallized 145 145 mg PO DAILY@0700 03/19/22 12/10/24 mg tablet dutasteride 0.5 mg capsule 0.5 mg PO DAILY@1700 08/06/22 12/10/24 (Avodart) cholecalciferol (vitamin D3) 10 10 mcg PO DAILY@0700 09/05/23 12/10/24 mcg (400 unit) tablet ferrous sulfate 325 mg (65 mg 325 mg PO BID@0700,1700 09/05/23 12/10/24 iron) tablet omeprazole 20 mg capsule,delayed 20 mg PO DAILY 09/05/23 12/10/24 release vit C 250 mg-vit E 90 mg-zinc 40 1 tab PO BID@1200,1700 09/05/23 12/10/24 mg-copper 1 [id number] capsule (PreserVision AREDS-2) digoxin 125 mcg (0.125 mg) tablet 125 mcg PO DAILY 09/29/24 12/10/24 Previous Rx's ?Medication ?Instructions ?Recorded bumetanide 2 mg tablet 2 mg PO BID@0700,1700 90 days #180 02/20/24 tabs rivaroxaban 20 mg tablet (Xarelto) 20 mg PO BEDTIME #90 tabs 04/16/24 metoprolol succinate 25 mg 25 mg PO QPM #90 tabs 07/10/24 tablet,extended release 24 hr midodrine 2.5 mg tablet 2.5 mg PO TID #270 tabs 08/25/24 potassium chloride 20 mEq 20 meq PO DAILY #90 tabs 08/25/24 tablet,extended release Allergies Allergy/AdvReac Type Severity Reaction Status Date / Time hydromorphone [From Dilaudid] AdvReac Confusion Verified 12/17/24 17:24 PMFSH Past Medical History Medical History Anemia Acute congestive heart failure Acute upper gastrointestinal bleeding Acute blood loss anemia COPD (chronic obstructive pulmonary disease) Hyperlipidemia Afib Nasal sinus tumor CAD (coronary artery disease) Surgical History Hx of CABG Family History Family History (Updated 10/19/24 @ 09:59 by Mckayla Giraldo MA) Mother No problems noted. Father No problems noted. Social History Social History Household Members: Spouse Housing: House Do you presently have visiting nurse or other home services: No Alcohol intake: current Alcohol intake frequency: holidays/special occasions only Alcohol type: beer Patient Tobacco Use Status: Former Tobacco user Tobacco use type: Cigar e-Cigarette/Vaping Use: Former Use Advance Directives Date on File: 02/16/22 service: No Current occupational status: retired Cognitive needs: No Hearing needs: No Vision needs: Yes (rx glasses) Physical Exam Vital Signs: Vital Signs: Last Vital Signs Temp 98.4 F 12/17/24 17:23 Pulse 120 H 12/17/24 17:23 Resp 26 H 12/17/24 17:23 BP 131/63 12/17/24 17:23 Pulse Ox 82 L 12/17/24 17:23 O2 Del Method Room Air 12/17/24 17:23 BMI result Body Mass Index 23.7 Discharge Plan Discharge Prescriptions: No Action bumetanide 2 mg tablet 2 mg PO BID@0700,1700 90 Days Qty: 180 3RF Xarelto 20 mg tablet 20 mg PO BEDTIME Qty: 90 3RF metoprolol succinate 25 mg tablet extended release 24 hr 25 mg PO QPM Qty: 90 3RF midodrine 2.5 mg tablet 2.5 mg PO TID Qty: 270 3RF potassium chloride 20 mEq tablet extended release 20 meq PO DAILY Qty: 90 3RF fenofibrate nanocrystallized 145 mg tablet 145 mg PO DAILY@0700 atorvastatin 40 mg tablet 40 mg PO DAILY@1700 ferrous sulfate 325 mg (65 mg iron) tablet 325 mg PO BID@0700,1700 omeprazole 20 mg capsule,delayed release(DR/EC) 20 mg PO DAILY cholecalciferol (vitamin D3) 10 mcg (400 unit) Tablet 10 mcg PO DAILY@0700 PreserVision AREDS-2 250-90-40-1 mg Capsule 1 tab PO BID@1200,1700 dutasteride [Avodart] 0.5 mg capsule 0.5 mg PO DAILY@1700 digoxin 125 mcg (0.125 mg) tablet 125 mcg PO DAILY Rx Instructions: non on WED and SAT Print Language: Vietnamese
[2024-12-17] MEDS: cefTRIAXone sodium 2 GM VIAL IVPUSH (17:59)
[2024-12-17] MEDS: Acetaminophen 1,000 MG/100 ML PIGGYBACK 400 MG IV (18:02)
[2024-12-17] MEDS: Furosemide 100 MG/10 ML VIAL 60 MG IVPUSH (18:02)
[2024-12-17 18:05] LABS: MANUAL DIFF FLAG NO
[2024-12-17 18:08] LABS: Basophils Percent Auto 0.7 % (0-2); Eosinophils Absolute Auto 0.1 X10*3/uL (0.0-0.4); Hematocrit 30.5 % (42.0-52.0); Hemoglobin 9.7 g/dl (14.0-18.0); Imm Gran Abs Auto 0.01 X10*3/uL (0.00-0.03); Imm Gran Pct Auto 0.2 % (0.0-0.4); Lymphocytes Absolute Auto 0.6 X10*3/uL (1.2-4.9); Lymphocytes Percent Auto 9.8 % (20-40); Mean Corpuscular HGB Conc 31.8 g/dl (31.0-36.0); Mean Corpuscular Hemoglobin 33.6 pg (27.0-33.0); Mean Corpuscular Volume 105.5 fL (80.0-98.0); Mean Platelet Volume 10.1 fL (9.4-12.4); Monocytes Absolute Auto 0.8 X10*3/uL (0.1-1.2); Monocytes Percent Auto 12.4 % (2-11); Neutrophils Absolute Auto 4.7 x10*3/uL (2.0-8.3); Neutrophils Percent Auto 75.9 % (45-73); Platelet Count 230 X10*3/uL (160-400); Red Blood Count 2.89 X10*6/uL (4.60-5.80); Red Cell Distribution Width 17.9 % (11.0-16.0); White Blood Count 6.2 X10*3/uL (4.8-10.8)
[2024-12-17] MEDS: Albumin Human 25 % 100 ML 133.33 ML IV ×2 (18:20→19:14)
[2024-12-17 18:23] LABS: Alanine Aminotransferase 11 U/L (0-40); Albumin Level 3.2 g/dL (3.5-5.0); Alkaline Phosphatase 57 U/L (39-117); Anion Gap 10 (12-20); Aspartate Amino Transferase 43 U/L (5-37); Bilirubin Total 0.5 mg/dL (0.0-1.0); Blood Urea Nitrogen 18 mg/dL (9-16); Carbon Dioxide 27 mmol/L (22-29); Chloride 103 mmol/L (96-108); Creatinine Clr Calc Pharmacy 68.5; Estimated Glomerular Filt Rate > 60; Glucose Random 96 mg/dL (60-115); Lipase 57 U/L (8-78); Potassium 3.6 mmol/L (3.3-5.1); Sodium 136 mmol/L (135-145); Total Protein 6.4 g/dL (6.5-8.0)
[2024-12-17 18:23] LABS: Lactic Acid 1.5 mmol/L (0.5-2.0)
--- NOTE | 2024-12-17 18:25 | MHC.EDTECH ---
Patient brought into room from Triage area, patient was changed into hospital attire,placed on the personnel monitor, vitals taken, rectal temp is 101.5 Continuous rectal probe placed ,RN at bedside, EKG completed per order, blood cultures,labs,sars/flu/rsv obtained and sent to lab. at bedside call bautista in reach
--- OUTSIDE RECORDS SUMMARY | 2024-12-17 18:25 | XMS_ITS ---
Author Organization [facility] Address [address] [place] [address] Care Team Providers Care Washroom Operator Name Role Phone Darek Ronquillo MD [...] Problem Status W/U Status Risk Notes Problem [id number] Anemia, unspecified type (D64.9) Active confirmed Vital Signs Temperature 97.5 degrees Fahrenheit 08/10/19 25 Blood pressure systolic 000 mm Hg 08/10/19 25 Blood pressure diastolic 00 mm Hg 025 Height 5 ft 11 in in 08/10/2024 Weight 180 lbs 08/10/2024 BMI 25.10 kg/m2 08/10/2024 Encounters Encounter Location Date Provider Diagnosis [facility] [address] [place] [address] 08/10/2024 Soren Boothe Jr Anemia, unspecified type [...] Appt Details Follow Up: 1 Year, Reason: Provider Name:Soren wadsworth Jr, 01/25/2025 01:35:00 PM, [address], [address], [place], [address], Progress Notes * STEFFEN ANTHONYDOB:1945 ( 79 yo M)Acc No.[id number]:08/10/2024 Progress Notes Patient:?COURT ANTHONYIC Provider:?Soren Boothe MD :1945???Age:79 Y???Sex:Male Fred e:08/10/2024 Address:[address] [place], [place] [id number] Pcp:Darek Ronquillo MD Subjective: * Chief Complaints: * ???1. Patient presents today for anemic. * HPI: ???New symptom(s):? The patient is a pleasant 79-year-old man seen today in consultation. He was admitted to the hospital in August of last year with anemia and underwent upper endoscopy which was basically normal. He had undergone colonoscopy in [place] 3 months prior to this. 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 * Surgical History:?Coronary a rtery bypass [...] Provider:?Soren Boothe MD Date:?0 08/10/2024 Generated for Dandyi leela/Joey/eTransmitting on:?12/17/2024 08:58 AM EDT History and Physical Notes * HPI (History of Present Illness) Category Sub-Category Detail Notes Category Not es New symptom(s) The patient is a pleasant 79-year-old man seen today in consultation. He was admitted to the hospital in August of last year with anemia and underwent upper endoscopy which was basically normal. He had undergone colonoscopy in [place] 3 months prior to this. Following discharge, [...]
[2024-12-17 18:26] LABS: B Type Natriuretic Peptide 730 pg/mL (<100)
[2024-12-17 18:30] LABS: Troponin-I High Sensitivity 32.2 ng/L (<3.5-35.0)
[2024-12-17 18:41] LABS: Influenza A PCR NEGATIVE (Negative); Influenza B PCR NEGATIVE (Negative); Resp Syncy Virus RNA Qual PCR NEGATIVE (Negative); SARS COV2 PCR INHOUSE NEGATIVE (Negative)
--- NOTE | 2024-12-17 18:49 | PC.NURSE ---
Sepsis alert called at 1738. Work up completed and Pt is now awaiting IV Albumin to be finished. Sepsis worksheet completed up until this point in time. Worksheet handed off to oncoming overnight MARK Leonardo.
--- NOTE | 2024-12-17 19:04 | PC.NURSE ---
This RN assumed pt care @ 1900. Pt resting in bed, a&ox4, no signs of distress. Plan of care ongoing.
[2024-12-17 19:12] LABS: Appearance Urine Clear; Color Urine Yellow; Glucose Urine UA Negative (Negative); Leukocyte Esterase Urine Negative (Negative); Nitrite Urine Negative (Negative); PH 6.5 (5.0-9.0); Specific Gravity - Urine 1.015 (1.005-1.025); UMIC TRIGGER UACC YES; Urine Blood Large (3+) (Negative); Urine Ketones Negative (Negative); Urine Protein 300 (3+) mg/dL (Neg-Trace)
[2024-12-17 19:17] LABS: Bacteria Urine None Seen (None Seen); Hyaline Casts Urine 0-2 /LPF (0-2); RBC Urine >20 /HPF (0-2); Squamous Epithelial Cell Urine 0-2 /HPF (0-2); WBC Urine 0-5 /HPF (0-5)
[2024-12-17] MEDS: iohexoL 350 MG/ML 100 ML INFUS..BTL IV (19:39)
[2024-12-17] MEDS: Rivaroxaban 20 MG TABLET PO (19:46)
[2024-12-17] MEDS: vancomycin/NS 2,000 MG/500 ML PLAST..BAG 250 MG IV (19:47)
--- NOTE | 2024-12-17 19:50 | PC.NURSE ---
This RN medicated pt with 2nd bag of albumin Provider d/c 2nd bag of albumin Pt returned from CT Pt medicated per mar Pts family at bedside Plan of care ongoing.
--- NOTE | 2024-12-17 20:31 | PM.IMHP ---
History of Present Illness Date of Service: 12/17/24 Attending physician on admission: Rusty Santillan Chief Complaint: SOB, weakness Pt is a 79 yo male with PMH Anemia followed by Oncology undergoes intermittent tranfusions, persistent AFib on Xarelto, HFrEF, GIB, RUL lung mass noncancerous per pt, peripheral vascular disease with history of femoral bypass grafting and cadaver vein placement BLEs, COPD/emphysema patient is not on home O2, smoking cessation 20 years prior, alcohol use daily, diverticulosis, cholelithiasis, prostatomegaly, right maxillary sinus cancer currently cured, CABG x2 2004, epistaxis and hematuria secondary to Xarelto, hyperlipidemia, GERD presents to ED with complaints of feeling like sh-- for the last 2 weeks. Patient reports increasing shortness of breath with lower extremity weakness to the point that patient did not feel strong enough to walk. Prior to this illness patient was driving and independent with everyday activities of life. Patient has had a productive cough with the sputum has been clear. Patient denies any fever, chills, chest pain during this interim. Patient did just recently see his vascular provider and underwent additional testing through [facility]. Patient does have chronic edema in both extremities considered dependent and not lymphedema. Patient also has history of heart failure with reduced EF and normally takes Bumex 2 mg twice daily. Patient does not use oxygen at home. Pt currently in AFIB rate controlled, on xaralto and pt denies any spontaneous bleeding. Pt was seen by oncologist 12/10/2024 and did not require transfusion. Review of Systems Review of Systems: Patient denies any chest pain, abdominal pain, nausea or vomiting. Patient is not having any issues of diarrhea but has mild constipation. Patient reports no pain in the lower extremities but the edema is chronic independent. Patient normally wears heads on a daily basis. Patient denies any recent falls or trauma to the head. Patient denies any issues with recent spontaneous bleeding including epistaxis or GI bleed. Yes all other systems are reviewed and are negative [facility] Medical History (Updated 12/17/24 @ 21:22 by Mary Mckeon, RAMANA-) Gastritis Gross hematuria Chronic atrial fibrillation (HFpEF) heart failure with preserved ejection fraction Low blood pressure Anemia Acute congestive heart failure Acute upper gastrointestinal bleeding Acute blood loss anemia COPD (chronic obstructive pulmonary disease) Hyperlipidemia Afib Nasal sinus tumor CAD (coronary artery disease) Cognitive capacity: Alert and orientated x3 Functional capacity: independent ambulation (Prior to illness patient was also driving) Family History Mother No problems noted. Father No problems noted. Surgical History Hx of CABG Social History (Updated 12/17/24 @ 21:22 by AVINASH Pabon) Household Members: Spouse Housing: House Do you presently have visiting nurse or other home services: No Alcohol intake: current Alcohol intake frequency: 0-2 drinks per day Alcohol type: beer Comment: Patient reports 3 beers in the afternoon and 1 mixed drink before bed, bon Patient Tobacco Use Status: Former Tobacco user Tobacco use type: Cigar Smoked in Last 30 Days: No e-Cigarette/Vaping Use: Former Use Use of substances other than those prescribed or required for medical reasons: No Advance Directives: Yes Advance Directives on File: Yes Advance Directives Date on File: 02/16/22 service: No Current occupational status: retired Cognitive needs: No Hearing needs: No Vision needs: Yes (rx glasses) Ebola Risk: Travel/Contact With Anyone From Affected Area/s: No Has Patient Experienced Ebola Symptoms: No Meds Allergies Allergy/AdvReac Type Severity Reaction Status Date / Time hydromorphone [From Dilaudid] AdvReac Confusion Verified 12/17/24 17:24 Active Medications: Current Medications Acetaminophen (Acetaminophen 325 Mg Tablet) 650 mg PO Q6H PRN PRN Reason: Pain, Mild 1-3,fever,headache Albuterol/Ipratropium (Albuterol/Iprat 2.5/0.5mg 3 Ml Ampul.Neb) 3 ml INHALE Q4H PRN PRN Reason: Shortness of Breath/Wheezing Benzonatate (Benzonatate 100 Mg Capsule) 100 mg PO TID PRN PRN Reason: Cough Calcium Carbonate (Calcium Carbonate 750 Mg Tab.Chew) 750 mg PO Q4H PRN PRN Reason: Heartburn Magnesium Hydroxide (Milk Of Magnesia 30 Ml Oral.Susp) 30 ml PO DAILY PRN PRN Reason: Constipation Melatonin (Melatonin 3 Mg Tablet) 6 mg PO BEDTIME PRN PRN Reason: Insomnia Ondansetron HCl (Ondansetron Hcl 4 Mg/2 Ml Vial) 4 mg IVPUSH Q8H PRN PRN Reason: Nausea and Vomiting Polyethylene Glycol (Polyethylene Glycol 3350 17 Gm Powd.Pack) 17 gm PO DAILY PRN PRN Reason: Constipation Rivaroxaban (Rivaroxaban 20 Mg Tablet) 20 mg PO DAILY@1700 [facility] Senna (Sennosides 8.6 Mg Tablet) 17.2 mg PO BEDTIME [facility] Sodium Chloride (0.9 % Sodium Chloride Flush 3 Ml Syringe) 3 ml IVFLUSH QSHIFT [facility] Home Medications ?Medication ?Instructions ?Recorded ?Confirmed ?Last Taken ?Type atorvastatin 40 mg tablet 40 mg PO DAILY@169903/19/22 12/17/24 12/16/24 History fenofibrate nanocrystallized 145 145 mg PO DAILY@0703/19/22 12/17/24 12/17/24 History mg tablet dutasteride 0.5 mg capsule 0.5 mg PO DAILY@17008/06/22 12/17/24 12/16/24 History (Avodart) cholecalciferol (vitamin D3) 10 10 mcg PO DAILY@0709/05/23 12/17/24 12/17/24 History mcg (400 unit) tablet ferrous sulfate 325 mg (65 mg 325 mg PO BID@0700,169909/05/23 12/17/24 12/17/24 History iron) tablet omeprazole 20 mg capsule,delayed 20 mg PO DAILY@0609/05/23 12/17/24 12/17/24 History release vit C 250 mg-vit E 90 mg-zinc 40 1 tab PO BID@1200,169909/05/23 12/17/24 12/17/24 History mg-copper 1 yg-ohuviy-xwzykv capsule (PreserVision AREDS-2) digoxin 125 mcg (0.125 mg) tablet 125 mcg PO SUMOTUTHFR 09/29/24 12/17/24 12/17/24 History metoprolol succinate 25 mg 25 mg PO DAILY@169912/17/24 12/17/24 12/16/24 History tablet,extended release 24 hr midodrine 2.5 mg tablet 2.5 mg PO TID@0700,1200,17012/17/24 12/17/24 12/17/24 History potassium chloride 20 mEq 20 meq PO DAILY@0700 12/17/24 12/17/24 12/17/24 History tablet,extended release rivaroxaban 20 mg tablet (Xarelto) 20 mg PO DAILY@1700 12/17/24 12/17/24 12/16/24 History Physical Exam Vital Signs and Narrative: Vital Signs: Last Vital Signs Temp 100.4 F 12/17/24 19:31 Pulse 83 12/17/24 19:31 Resp 21 H 12/17/24 19:31 BP 123/61 12/17/24 19:31 Pulse Ox 99 12/17/24 19:31 O2 Del Method Nasal Cannula 12/17/24 19:31 O2 Flow Rate 3 12/17/24 19:31 BMI result Body Mass Index 23.7 Alert and orientated X3, able to give good history. Neuro: CN II-X11 intact, no deficits, visual acuity intact EYES: PERRLA, EOM intact, sclerae nonicteric, glasses on ENT: hearing intact, no issues with swallowing, uvula midline, lips moist, nares patent no epistaxis, some teeth missing patient has plates that are at home Cardiac: Rhythm are regular, rate 90, no murmur, no JVD, +2 edema in Lower ext Pulmonary: lungs bilateral rhonchi, expiratory wheeze present Abdominal: BS active in all 4 quadrants, no guarding, tenderness, rebounding MSK: strength 4/5 upper and lower extremities : no CVA tenderness no bladder distension Extremities: +2 edema in lower extremities, PT and DP pulses palpable +2, skin warm Psych: mood stable, judgement and insight good Skin: No open wounds or abscesses reported Results Labs 12/17/24 17:58 12/17/24 17:58 Labs: Laboratory Results - last 24 hr 12/17/24 12/17/24 12/17/24 17:56 17:58 18:52 MCV 105.5 H MCH 33.6 H MCHC 31.8 RDW 17.9 H Plt Count 230 MPV 10.1 Immature Gran % (Auto) 0.2 Neut % (Auto) 75.9 H Lymph % (Auto) 9.8 L [place] % (Auto) 12.4 H Eos % (Auto) 1.0 Baso % (Auto) 0.7 Lymph # (Auto) 0.6 L [place] # (Auto) 0.8 Eos # (Auto) 0.1 Baso # (Auto) 0.0 Abs Immat Gran (auto) 0.01 Absolute Neuts (auto) 4.7 Absolute Nucleated RBC 0.000 Nucleated RBC % (auto) 0.0 Anion Gap 10 L Estim Creat Clear Calc 68.5 Estimated GFR > 60 Random Glucose 96 Lactic Acid 1.5 Calcium 9.0 Total Bilirubin 0.5 AST 43 H ALT 11 Alkaline Phosphatase 57 Troponin I High Sens 32.2 B-Natriuretic Peptide 730 H Total Protein 6.4 L Albumin 3.2 L Lipase 57 Urine Color Yellow Urine Appearance Clear Urine pH 6.5 Ur Specific [place] 1.015 Urine Protein 300 (3+) H Urine Glucose (UA) Negative Urine Ketones Negative Urine Blood Large (3+) H Urine Nitrite Negative Ur Leukocyte Esterase Negative Urine RBC >20 H Urine WBC 0-5 Ur Squamous Epith Cells 0-2 Urine Bacteria None Seen Hyaline Casts 0-2 Influenza Type A (PCR) NEGATIVE Influenza Type B (PCR) NEGATIVE RSV RNA Qual (PCR) NEGATIVE SARS-CoV-2 RNA (RT-PCR) NEGATIVE ECG Attestation: I personally reviewed and interpreted this ECG as follows: (AFib rate 90) Prior ECG tracings: available for review Imaging Radiologist's Impressions: CHest CT IMPRESSION: 1. 2.5 cm lesion in the right upper lobe is nonspecific and may reflect scarring with architectural distortion. Lung neoplasm also considered by initial CT. Additional diagnostics may be informative as clinically indicated. 2. Small bilateral pleural effusions. 3. Pulmonary opacities are nonspecific and may reflect pneumonitis and/or multifocal pneumonia. 4. Edema superimposed on chronic lung disease also considered with cardiomegaly and emphysematous changes. CXR IMPRESSION: 1. Moderate pulmonary opacities concerning for pneumonitis and/or pulmonary edema. 2. Small bilateral pleural effusions. Assessment and Plan (1) Decompensated heart failure: Status: Acute Plan Pt is a 79 yo male with PMH Anemia followed by Oncology undergoes intermittent tranfusions, persistent AFib on Xarelto, HFrEF, GIB, RUL lung mass noncancerous per pt, peripheral vascular disease with history of femoral bypass grafting and cadaver vein placement BLEs, COPD/emphysema patient is not on home O2, smoking cessation 20 years prior, alcohol use daily, diverticulosis, cholelithiasis, prostatomegaly, right maxillary sinus cancer currently cured, CABG x2 2004, epistaxis and hematuria secondary to Xarelto, hyperlipidemia, GERD is being admitted for multifocal pneumonia and CHF exacerbation. Decompensated heart failure -Patient received 60 mg of Lasix IV x1 in the ED -BNP 730, troponin 32 -Echo ordered -Cardiology consulted -Continue Lasix 40 IV b.i.d. -Potassium 3.6, supplementation ordered -Telemetry and continuous pulse ox -Oxygen via nasal cannula, patient does not use oxygen at home, wean as tolerated -Daily weights, measure intake and output -Low-sodium diet -Fluid restriction 1500 Pneumonia -Pt does not meet criteria for sepsis at this time -Atypical likely, patient is started on ceftriaxone and vancomycin in the ED - we will continue these antibiotics -Duo nebs p.r.n., budesonide twice daily -Incentive spirometer -Supportive care -Viral studies all negative -Testing for legionnaires and strep pneumonia requested -MRSA screen requested -Aspiration precautions, not likely cause Generalized weakness -PT eval requested -Fall prevention measures in place Lung nodule RUL/ mediastinal adenopathy -Recent workup via PET scan led to bronchoscopy and pathology was negative for malignancy, also in lymph nodes negative for malignancy. Patient follows with Dr. Eng at [facility] and was given the option of resection versus follow-up imaging and patient is currently doing follow-up imaging. -patient will continue follow with Dr. 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 -[facility], received radiation at [facility] currently has a clean bill of [employer] AFib on Xarelto -DIg level requested -Continue Xaralto, h/h stable -Continue metoprolol -Telemetry -MG stable, TSH requested Anemia/ hx of outpatient transfusions -Follows with oncology as an outpatient -Continue iron -H/H stable, monitor daily Hyperlipidemia -Continue statin and fenofibrate -LFTs stable GERD -Omeperazole PVD -edema is dependent, no hx of lymphedema -Pt follows with vascular as an outpatient at [facility], last appt was last week Alcohol use daily -CIWA, no indication for phenobarbitol -Thiamine and folic acid ordred -Pt denies hx of withdrawal or liver issues DVT prophylaxis: Xarelto PPI prophylaxis: Omeprazole Med rec completed Full Code status Quality Stroke Does the patient have a stroke diagnosis?: No Reason for No Anti-thrombotic by Day Two: N/A - Med Ordered VTE Prior VTE?: No VTE Risk Level:: Medical - moderate - high VTE Device Contraindication: N/A - Device Ordered VTE Drug Contraindication: N/A - Med Ordered
[2024-12-17 21:06] LABS: Magnesium 1.6 mg/dL (1.6-2.6)
[2024-12-17 21:14] LABS: Thyroid Stimulating Hormone 4.44 uIU/mL (0.32-4.0)
[2024-12-17 21:24] LABS: Digoxin 0.7 ng/mL (0.8-2.0)
--- NOTE | 2024-12-17 21:28 | PHA.MEDREC ---
Pharmacy Consult ? Medication Reconciliation Pharmacy has completed the medication reconciliation. Spoke to spouse Kierra via phone to confirm medication list. Per spouse, patient takes digoxin 125 mcg daily, except none on saturday and saturday.
[2024-12-17] MEDS: Sennosides 8.6 MG TABLET 17.2 MG PO (22:00)
[2024-12-17] MEDS: Metoprolol Succinate ER 25 MG TAB.ER.24H PO (22:01)
--- NOTE | 2024-12-17 22:11 | PC.NURSE ---
No potassium chloride 40meq in the med Pyxis Med requested from pharmacy Plan of care ongoing.
[2024-12-17] MEDS: Potassium Chloride ER 20 MEQ TAB.ER.PRT 40 MEQ PO (22:36)
--- NOTE | 2024-12-17 22:36 | PHA.PROG ---
Admission Date/Time: December 17, 2024 19:25 Indication: respiratory infection Weight in k.111 kg Adjusted body weight in K.024 Serum Creatinine - Last 168 Hours 12/17/24 17:58 Creatinine 0.93 Estimated CrCl and GFR - Last 168 Hours 12/17/24 17:58 Estim Creat Clear Calc 68.5 Estimated GFR > 60 Vancomycin Loading Dose: 2000 Current Vancomycin Dosing Regimen: 750 Q12H Vancomycin Monitoring using AUC goal of 400 - 600 range with trough as surrogate marker: 507 Date and Time for next Vancomycin Level to be drawn: 12/19 @600 Pharmacist Comments on Vancomycin Plan: Vancomycin dosing will take advantage of [employer] as a clinical decision support tool that uses Bayesian modeling to calculate individual patient's pharmacokinetic parameters and forecast the patient's drug concentration time course with the target goal AUC 24 range of 400 - 600 mg/L/hr.
--- NOTE | 2024-12-17 22:36 | PC.NURSE ---
Med entered into pyxis by pharmacy Pt medicated per sep Plan of care ongoing
--- NOTE | 2024-12-17 22:41 | PC.NURSE ---
RT called regarding neb tx. Plan of care ongoing.
[2024-12-17] MEDS: Budesonide 0.5 MG/2 ML AMPUL.NEB INHALE (22:57)
[2024-12-18] VITALS (10 sets, daily range): BP systolic 106–172; BP diastolic 54–93; PULSE 66–87; RESP 14–24; TEMP 36.2–37.8; O2SAT 92–100; BMI 24.1
[2024-12-18] MEDS: 0.9 % Sodium Chloride Flush 3 ML SYRINGE IVFLUSH ×3 (00:01→16:14)
[2024-12-18] MEDS: Cyclobenzaprine HCl 5 MG TABLET PO (04:22)
--- NOTE | 2024-12-18 04:25 | PC.NURSE ---
Pt medicated per [facility] Plan of care ongoing.
--- NOTE | 2024-12-18 04:46 | PC.NURSE ---
Urinal emptied Placed in pts reach on side table Plan of care ongoing.
--- NOTE | 2024-12-18 05:12 | PC.NURSE ---
this rn assumed care of pt, pt resting in stretcher, no acute distress noted, respirations even and unlabored
[2024-12-18] MEDS: Omeprazole 20 MG CAPSULE.DR PO (06:23)
--- NOTE | 2024-12-18 06:28 | PC.NURSE ---
pt medicated per sep, tolerated whole well with water
--- NOTE | 2024-12-18 07:00 | CA_ITS ---
Transthoracic Echocardiogram Patient (Last, First, Middle): Hector Diaz, Gender: Male Date of : 1945 Age: 79 Procedure Date: 12/18/2024 Procedure Type: Transthoracic Echocardiogram Location: ER Height: 180.34 cm Weight: 77.11 kg BSA: 1.97 m2 Heart Rate: 90 bpm BP: 113 / 54 mmHg Non Garment Sewing Machine Operator: LEONARDA Referring MD: Mary Mckeon [facility]- Accounting Manager Controller: Rudi Mccoy MD Symptoms: CHF exacerbation Study Quality: Adequate ECG Rhythm: Atrial Fibrillation Conclusions: - 1. Mildly to moderately reduced LV ejection fraction 40-45% 2. Severe biatrial enlargement 3. Severe mitral annular calcification with normal cardiac valvular Dopplers 4. Moderate to severe elevation right ventricular systolic pressure with significantly elevated right atrial pressures Findings Procedure Information Contrast agent, definity, is being given per protocol without apparent complications. Left Ventricle Normal left ventricular cavity size. There is mildly increased left ventricular wall thickness. The left ventricular systolic function is mild to moderately decreased. The visually estimated ejection fraction is between 40-45%. Diastolic function is indeterminate on the basis of available data. Wall Motion Rest Echo Findings The apical inferior segment is hypokinetic. The apex, apical anterior, apical lateral, and apical septum segments are akinetic. All other scored wall segments showed normal motion. Right Ventricle Normal right ventricular cavity size. There is mildly decreased right ventricular systolic function. Atria Severe biatrial enlargement. Aortic Valve There is mild calcification of the aortic valve. There is no aortic valve stenosis. There is no aortic valve regurgitation. Mitral Valve There is mild anterior and severe posterior mitral leaflet thickening. There is severe mitral annular calcification. There is trace mitral valve regurgitation. There is no mitral valve stenosis. Pulmonic Valve The pulmonic valve is likely normal. Tricuspid Valve Normal tricuspid valve structure. There is mild tricuspid valve regurgitation. Significantly elevated right atrial pressure. Moderate to severe pulmonary hypertension is present. Great Vessels The aorta was not well visualized. The pulmonary artery was not well visualized. There is mild dilatation of the ascending aorta measuring 3.80 cm. Venous The inferior vena cava is moderately dilated and does not collapse with inspiration. Pericardium/Pleural The pericardium was not well visualized. Prior Study Comparison No significant change compared to prior study dated: 09/09/2023. RV systolic pressure is increase along with significantly elevated right atrial pressures. LV ejection fraction is marginally reduced Measurements 2D Linear Measurements IVSd: 1.43 0.6-0.9/0.6-1.0 cm LVIDd: 4.89 3.9-5.3/4.2-5.9 cm LVIDd Index: 2.48 2.4-3.2/2.2-3.1 cm/m2 LVIDs: 3.41 2.0-3.6 cm LVPWd: 1.02 0.7-1.1 cm LA Diam: 5.80 2.7-3.8/3.0-4.0 cm LAIDs Index: 2.94 1.5-2.3 cm/m2 LV Mass: 289.66 67-162/88-224 g LV Mass Index: 147.03 43-95/49-115 g/m2 LVOT Diam: 2.40 3.0+(-)1.3 cm 2D Systolic Function EF 4C: 48.70 >55% EF 2C: 32.30 >55% EF BiP: 41.70 >55% Mitral Valve MV Pk E: 1.69 MV Decel Time: 221.00 E'Lateral: 9.72 E/E' Lat: 17.40 Aortic Valve AoV Pk Leonel: 1.33 AoV Pk Grad: 7.00 THUAN: 2.97 LVOT LVOT Pk Leonel: 0.87 LVOT Mn Leonel: 0.56 LVOT VTI: 0.15 LVOT Pk Grad: 3.00 LVOT Mn Grad: 2.00 LVOT Diam: 2.40 LVOT Area: 4.52 Diastolic Function MV Pk E: 1.69 E' Laterial: 9.72 E/E' Lat: 17.40 Right Ventricle TAPSE (mm): 15.30 TVS' Leonel: 7.36 Tricuspid Valve TR Pk Leonel: 3.50 TR Pk Grad: 49.00 RA Press: 15.00 RVSP: 64.00 Great Vessels Aorta Sinus of Valsalva: 4.10 2.0-3.5 cm Ao Asc: 3.80 2.1-3.4 cm Pulmonary Valve PV Pk Leonel: 1.11 Peak PV Grad: 5.00 Updated in Other Vendor System with Status of Final Rudi Mccoy MD electronically signed on 12/18/2024 12:59:17 PM with status of Final
[2024-12-18 07:03] LABS: MANUAL DIFF FLAG NO
--- NOTE | 2024-12-18 07:12 | PC.NURSE ---
pt is caox4, he has nonlabored resps and is speaking in full clear sentences. pt reports he understands his plan of care, his curently eating breakfast. he is in afib with rbbb pattern in lead 2. report has been taken from previous from previous rn, admission report is completed.
[2024-12-18 07:17] LABS: Basophils Absolute Auto 0.1 X10*3/uL (0.0-0.2); Basophils Percent Auto 0.6 % (0-2); Eosinophils Percent Auto 0.5 % (0-4); Hemoglobin 9.9 g/dl (14.0-18.0); Imm Gran Abs Auto 0.03 X10*3/uL (0.00-0.03); Imm Gran Pct Auto 0.4 % (0.0-0.4); Lymphocytes Absolute Auto 0.7 X10*3/uL (1.2-4.9); Lymphocytes Percent Auto 8.6 % (20-40); Mean Corpuscular HGB Conc 31.9 g/dl (31.0-36.0); Mean Corpuscular Hemoglobin 34.1 pg (27.0-33.0); Mean Corpuscular Volume 106.9 fL (80.0-98.0); Mean Platelet Volume 10.9 fL (9.4-12.4); Monocytes Absolute Auto 0.7 X10*3/uL (0.1-1.2); Monocytes Percent Auto 8.6 % (2-11); Neutrophils Absolute Auto 6.5 x10*3/uL (2.0-8.3); Neutrophils Percent Auto 81.3 % (45-73); Platelet Count 184 X10*3/uL (160-400); Red Cell Distribution Width 18.4 % (11.0-16.0)
[2024-12-18 07:24] LABS: Creatinine Clr Calc Pharmacy 80.7; Estimated Glomerular Filt Rate > 60; Magnesium 1.7 mg/dL (1.6-2.6)
[2024-12-18 07:25] LABS: Digoxin 0.6 ng/mL (0.8-2.0)
[2024-12-18 07:27] LABS: Alanine Aminotransferase < 6 U/L (0-40); Albumin Level 2.8 g/dL (3.5-5.0); Alkaline Phosphatase 47 U/L (39-117); Anion Gap 11 (12-20); Aspartate Amino Transferase 37 U/L (5-37); Bilirubin Total 0.5 mg/dL (0.0-1.0); Blood Urea Nitrogen 15 mg/dL (9-16); Calcium 9.1 mg/dL (8.4-10.2); Carbon Dioxide 26 mmol/L (22-29); Chloride 105 mmol/L (96-108); Creatinine Clr Calc Pharmacy 79.7; Estimated Glomerular Filt Rate > 60; Glucose Random 88 mg/dL (60-115); Potassium 3.7 mmol/L (3.3-5.1); Sodium 138 mmol/L (135-145); Total Protein 5.6 g/dL (6.5-8.0)
[2024-12-18] MEDS: Budesonide 0.5 MG/2 ML AMPUL.NEB INHALE ×2 (07:51→20:23)
--- NOTE | 2024-12-18 09:00 | MHC.CM.PN ---
CM met with Patient at bedside, in the ED, and addressed IMM with him, providing Patient with the original and a copy will be placed on the chart. Patient lives in a 2 family house with his /HCP/Kierra on the first floor with his Daughter living on the second floor. Patient required no services nor DME [employer] MANAGER and home self care vs new VNA is the tentative plan. CM has initiated and will follow for dc planning. PCP is Dr. Alvarado and will transport to home at time of dc.
--- NOTE | 2024-12-18 09:11 | PC.NURSE ---
Report received, taken over care at this time.
[2024-12-18] MEDS: Furosemide 40 MG/4 ML VIAL IVPUSH ×2 (10:07→18:01)
[2024-12-18] MEDS: Folic Acid 1 MG TABLET PO (10:07)
[2024-12-18] MEDS: Potassium Chloride ER 20 MEQ TAB.ER.PRT PO (10:07)
[2024-12-18] MEDS: Thiamine HCL 100 MG TABLET PO (10:07)
[2024-12-18] MEDS: vancomycin HCL 750 MG in 0.9 % Sodium Chloride 250 ML 265 MG IV (10:08)
--- NOTE | 2024-12-18 10:21 | PC.NURSE ---
Pharmacy notified for medication that was due at 0700. Prior RN did not reach out.
[2024-12-18] MEDS: Cholecalciferol (Vitamin D3) 10 MCG TABLET PO (10:43)
[2024-12-18] MEDS: Digoxin 0.125 MG TABLET PO (10:43)
[2024-12-18] MEDS: Ferrous Sulfate 324 MG TABLET.DR PO ×2 (10:44→16:13)
[2024-12-18] MEDS: Fenofibrate,Micronized 134 MG CAPSULE PO (10:48)
[2024-12-18 11:06] LABS: MRSA Nasal PCR POSITIVE (Negative); SA Nasal PCR POSITIVE (Negative)
--- NOTE | 2024-12-18 12:27 | P.CONPL_ITS ---
History of Present Illness History of Present Illness Consult date: 12/18/24 Chief complaint: Dyspnea Narrative: 79-year-old gentleman with underlying COPD, CAD, diastolic heart failure, known right-sided pulmonary nodules, AFib admitted on 12/17/2024 with progressive dyspnea and hypoxia over several weeks. Patient was noted to be in acute exacerbation of underlying chronic congestive heart failure. He was started on diuresis with significant improvement in his symptoms. CT chest was obtained that demonstrated mild bibasilar infiltrates and known right-sided pulmonary nodule. Review of Systems 2 Constitutional: Constitutional: Denies daytime sleepiness, Denies excessive sweating, Denies fatigue, Denies fever(s), Denies lethargy, Denies malaise, Denies night sweats, Denies snoring and Denies weight loss Eyes: Eyes: Denies blurry vision and Denies itchy eyes ENT: Denies nasal congestion, Denies post nasal drip, Denies sinus pain, Denies sinus pressure and Denies other ( Thrush) Cardiovascular: Cardiovascular: Denies chest pain, Denies pedal edema, Denies dyspnea, Reports dyspnea on exertion, Reports orthopnea and Denies paroxysmal nocturnal dyspnea Respiratory: Respiratory: Reports cough, Denies hemoptysis, Denies excessive phlegm production, Denies dyspnea, Reports dyspnea on exertion, Denies snoring and Denies wheezing Gastrointestinal: Gastrointestinal: Denies abdominal pain and Denies heartburn Musculoskeletal: Musculoskeletal: Denies myalgias, Denies arthralgias and Denies joint swelling Integumentary/Breasts: Skin/Breast: Denies rash Neurologic: Denies memory loss and Denies seizure-like activity Psychiatric: Psychiatric: Denies abnormal sleep pattern, Denies anxiety and Denies memory loss Endocrine: Endocrine: Denies excessive sweating, Denies fatigue and Denies heat intolerance Hematologic/Lymphatic: Hematologic/Lymphatic: Denies easy bruising Allergic/Immunologic: Allergic/Immunologic: Denies itchy eyes, Denies seasonal rhinorrhea and Denies wheezing PMFSH Past Medical History Medical History (Updated 12/18/24 @ 12:30 by Bandar Resendiz MD) Gastritis Gross hematuria Chronic atrial fibrillation (HFpEF) heart failure with preserved ejection fraction Low blood pressure Anemia Acute congestive heart failure Acute upper gastrointestinal bleeding Acute blood loss anemia COPD (chronic obstructive pulmonary disease) Hyperlipidemia Afib Nasal sinus tumor CAD (coronary artery disease) Family History Family History Mother No problems noted. Father No problems noted. Surgical History Surgical History Hx of CABG Social History Social History (Updated 12/17/24 @ 21:22 by AVINASH Pabon) Household Members: Spouse Housing: House Do you presently have visiting nurse or other home services: No Alcohol intake: current Alcohol intake frequency: 0-2 drinks per day Alcohol type: beer Comment: Patient reports 3 beers in the afternoon and 1 mixed drink before bed, bon Patient Tobacco Use Status: Former Tobacco user Tobacco use type: Cigar Smoked in Last 30 Days: No e-Cigarette/Vaping Use: Former Use Use of substances other than those prescribed or required for medical reasons: No Advance Directives: Yes Advance Directives on File: Yes Advance Directives Date on File: 02/16/22 service: No Current occupational status: retired Cognitive needs: No Hearing needs: No Vision needs: Yes (rx glasses) Travel History Ebola Risk: Travel/Contact With Anyone From Affected Area/s: No Has Patient Experienced Ebola Symptoms: No Meds Allergies Allergy/AdvReac Type Severity Reaction Status Date / Time hydromorphone [From Dilaudid] AdvReac Confusion Verified 12/17/24 17:24 Active Medications: Current Medications Acetaminophen (Acetaminophen 325 Mg Tablet) 650 mg PO Q6H PRN PRN Reason: Pain, Mild 1-3,fever,headache Albuterol/Ipratropium (Albuterol/Iprat 2.5/0.5mg 3 Ml Ampul.Neb) 3 ml INHALE RQ4H PRN PRN Reason: Shortness of Breath/Wheezing Atorvastatin Calcium (Atorvastatin Calcium 40 Mg Tablet) 40 mg PO DAILY@1700 SHAWANDA Benzonatate (Benzonatate 100 Mg Capsule) 100 mg PO TID PRN PRN Reason: Cough Budesonide (Budesonide 0.5 Mg/2 Ml Ampul.Neb) 0.5 mg INHALE RBID [facility] Last Admin: 12/18/24 07:51 Dose: 0.5 mg Calcium Carbonate (Calcium Carbonate 750 Mg Tab.Chew) 750 mg PO Q4H PRN PRN Reason: Heartburn Ceftriaxone Sodium (Ceftriaxone Sodium 2 Gm Vial) 2 gm IVPUSH Q24H [facility] Digoxin (Digoxin 0.125 Mg Tablet) 0.125 mg PO SUMOTUTHFR [facility]; Protocol Last Admin: 12/18/24 10:43 Dose: 0.125 mg Fenofibrate (Fenofibrate,Micronized 134 Mg Capsule) 134 mg PO DAILY@0700 [facility] Last Admin: 12/18/24 10:48 Dose: 134 mg Ferrous Sulfate (Ferrous Sulfate 324 Mg Tablet.) 324 mg PO BID@0700,1700 [facility] Last Admin: 12/18/24 10:44 Dose: 324 mg Folic Acid (Folic Acid 1 Mg Tablet) 1 mg PO DAILY [facility] Last Admin: 12/18/24 10:07 Dose: 1 mg Furosemide (Furosemide 40 Mg/4 Ml Vial) 40 mg IVPUSH BID@0900,1800 [facility]; Protocol Last Admin: 12/18/24 10:07 Dose: 40 mg Vancomycin HCl 750 mg/ Sodium (Chloride) 265 mls @ 265 mls/hr IV Q12H [facility] Last Infusion: 12/18/24 11:08 Dose: Infused Lorazepam (Lorazepam 0.5 Mg Tablet) 0.5 mg PO Q4H PRN PRN Reason: anxiety/restlessness Magnesium Hydroxide (Milk Of Magnesia 30 Ml Oral.Susp) 30 ml PO DAILY PRN PRN Reason: Constipation Melatonin (Melatonin 3 Mg Tablet) 6 mg PO BEDTIME PRN PRN Reason: Insomnia Metoprolol Succinate (Metoprolol Succinate Er 25 Mg Tab.Er.24h) 25 mg PO DAILY@1700 [facility]; Protocol Last Admin: 12/17/24 22:01 Dose: 25 mg Non-Formulary Medication (Dutasteride [Avodart]) 0.5 mg PO DAILY@1700 [facility] Omeprazole (Omeprazole 20 Mg Capsule.) 20 mg PO DAILY@0630 [facility] Last Admin: 12/18/24 06:23 Dose: 20 mg Ondansetron HCl (Ondansetron Hcl 4 Mg/2 Ml Vial) 4 mg IVPUSH Q8H PRN PRN Reason: Nausea and Vomiting Pharmacy Consult (Consult Rx Vancomycin Dosing) 1 each MISCELLANE DAILY PRN PRN Reason: Consult order Polyethylene Glycol (Polyethylene Glycol 3350 17 Gm Powd.Pack) 17 gm PO DAILY PRN PRN Reason: Constipation Potassium Chloride (Potassium Chloride Er 20 Meq Tab.Er.Prt) 20 meq PO DAILY [facility] Last Admin: 12/18/24 10:07 Dose: 20 meq Rivaroxaban (Rivaroxaban 20 Mg Tablet) 20 mg PO DAILY@1700 [facility] Senna (Sennosides 8.6 Mg Tablet) 17.2 mg PO BEDTIME [facility] Last Admin: 12/17/24 22:00 Dose: 17.2 mg Sodium Chloride (0.9 % Sodium Chloride Flush 3 Ml Syringe) 3 ml IVFLUSH QSHIFT [facility] Last Admin: 12/18/24 10:10 Dose: 3 ml Thiamine HCl (Thiamine Hcl 100 Mg Tablet) 100 mg PO DAILY [facility] Last Admin: 12/18/24 10:07 Dose: 100 mg Vitamin D (Cholecalciferol (Vitamin D3) 10 Mcg Tablet) 10 mcg PO DAILY@0700 [facility] Last Admin: 12/18/24 10:43 Dose: 10 mcg Home Medications ?Medication ?Instructions ?Recorded ?Confirmed ?Last Taken ?Type atorvastatin 40 mg tablet 40 mg PO DAILY@17003/19/22 12/17/24 12/16/24 History fenofibrate nanocrystallized 145 145 mg PO DAILY@0703/19/22 12/17/24 12/17/24 History mg tablet dutasteride 0.5 mg capsule 0.5 mg PO DAILY@17008/06/22 12/17/24 12/16/24 History (Avodart) cholecalciferol (vitamin D3) 10 10 mcg PO DAILY@0709/05/23 12/17/24 12/17/24 History mcg (400 unit) tablet ferrous sulfate 325 mg (65 mg 325 mg PO BID@0700,1700 09/05/23 12/17/24 12/17/24 History iron) tablet omeprazole 20 mg capsule,delayed 20 mg PO DAILY@0609/05/23 12/17/24 12/17/24 History release vit C 250 mg-vit E 90 mg-zinc 40 1 tab PO BID@1200,1700 09/05/23 12/17/24 12/17/24 History mg-copper 1 ya-cudeab-eufzge capsule (PreserVision AREDS-2) digoxin 125 mcg (0.125 mg) tablet 125 mcg PO SUMOTUTHFR 09/29/24 12/17/24 12/17/24 History metoprolol succinate 25 mg 25 mg PO DAILY@1700 12/17/24 12/17/24 12/16/24 History tablet,extended release 24 hr midodrine 2.5 mg tablet 2.5 mg PO TID@0700,1200,1700 12/17/24 12/17/24 12/17/24 History potassium chloride 20 mEq 20 meq PO DAILY@0700 12/17/24 12/17/24 12/17/24 History tablet,extended release rivaroxaban 20 mg tablet (Xarelto) 20 mg PO DAILY@1700 12/17/24 12/17/24 12/16/24 History Physical Exam 2 Vital Signs: Vital Signs: Last Vital Signs Temp 100.0 F 12/18/24 04:18 Pulse 73 12/18/24 11:59 Resp 21 H 12/18/24 11:59 BP 121/65 12/18/24 11:59 Pulse Ox 94 12/18/24 11:59 O2 Del Method Room Air 12/18/24 11:59 O2 Flow Rate 3 12/18/24 04:18 BMI result Body Mass Index 23.7 Const: General: no acute distress and alert Nutritional Appearance: not obese Orientation/consciousness: Other orientation findings ( oriented) HEENT: Head: Yes atraumatic Eyes: General: appearance normal, both eyes and all related structures S clerae: sclerae normal EOM: EOMs intact bilaterally Neck: Neck: Yes supple Lymphatic: no lymphadenopathy noted Resp: Effort & Inspection: normal respiratory effort and no use of accessory muscles Auscultation: crackles (Mild bilateral) Cardio: Rate: regular rate Rhythm: regular rhythm Heart sounds: no gallops, no murmurs and no rubs Skin: General skin exam: other ( warm) Extrem: General: No clubbing, No cyanosis and Yes edema (2+ bilateral) Results Laboratory Findings 12/18/24 06:53 12/18/24 06:53 Abnormal lab findings: Abnormal Labs 12/17/24 12/17/24 12/17/24 17:58 18:52 21:06 RBC 2.89 L Hgb 9.7 L Hct 30.5 L MCV 105.5 H MCH 33.6 H RDW 17.9 H Neut % (Auto) 75.9 H Lymph % (Auto) 9.8 L [place] % (Auto) 12.4 H Lymph # (Auto) 0.6 L Anion Gap 10 L BUN 18 H AST 43 H B-Natriuretic Peptide 730 H Total Protein 6.4 L Albumin 3.2 L TSH 4.44 H Urine Protein 300 (3+) H Urine Blood Large (3+) H Urine RBC >20 H Nasal Screen MRSA (PCR) Nasal S. aureus Screen Digoxin 0.7 L 12/17/24 12/18/24 21:24 06:53 RBC 2.90 L Hgb 9.9 L Hct 31.0 L MCV 106.9 H MCH 34.1 H RDW 18.4 H Neut % (Auto) 81.3 H Lymph % (Auto) 8.6 L [place] % (Auto) Lymph # (Auto) 0.7 L Anion Gap 11 L BUN AST B-Natriuretic Peptide Total Protein 5.6 L Albumin 2.8 L TSH Urine Protein Urine Blood Urine RBC Nasal Screen MRSA (PCR) POSITIVE A Nasal S. aureus Screen POSITIVE A Digoxin 0.6 L Assessment and Plan (1) Abnormal CT scan, chest: Status: Acute (2) Pulmonary emphysema: Status: Acute (3) Decompensated heart failure: Status: Acute (4) Acute respiratory failure with hypoxia: Status: Acute Plan Impression: 79-year-old gentleman with underlying COPD, CAD, congestive heart failure, unknown pulmonary nodules admitted with hypoxia and dyspnea secondary to acute on chronic congestive heart failure, improving with diuresis. CT chest demonstrating no right-sided pulmonary nodule, now followed by [facility] thoracic surgery with prior negative PET scan. No evidence of lobar pneumonia, bibasilar infiltrates appear to be chronic. Recommendations: Agree with empiric diuresis. Procedures Date of Service Date of Service: 12/18/24
--- NOTE | 2024-12-18 12:28 | P.CONCA_ITS ---
History of Present Illness History of Present Illness Date of Service: 12/18/24 Requesting physician: Marietta Rios Consult reason: congestive heart failure Chief complaint: Dyspnea Narrative: I was consulted to see Hector cardiology consultation today for worsening shortness of breath and fluid overload. Patient 79-year-old male known to me with heart failure with mid-range EF with underlying coronary artery disease, chronic atrial fibrillation, chronic anemia, chronic parenchymal lung disease, poor tolerance of medications due to low blood pressure. Patient came to the hospital as per the because of progressive shortness of breath not feeling well and bilateral leg edema. Symptoms started about couple weeks ago as per the when he started having leg edema. Not call my office for further guidance. Patient on 2 mg b.i.d. of bumetanide at home. Patient also has increased cough. Also had some fever overnight which has improved. Patient was then given Lasix and has diuresed. Patient says he still has shortness of breath and also has cough. Denies palpitations, syncope. No major bleeding issues. Review of Systems 2 Constitutional: Constitutional: Denies body ache(s), Denies chills, Reports fatigue, Reports fever(s) and Reports weakness Eyes: Eyes: Reports no additional eye complaints Cardiovascular: Cardiovascular: Denies chest pain, Reports leg edema, Denies lightheadedness, Denies Loss of Consciousness, Denies palpitations, Reports dyspnea on exertion and Reports orthopnea Respiratory: Respiratory: Reports cough and Reports dyspnea on exertion Gastrointestinal: Gastrointestinal: Reports no additional gastrointestinal complaints Neurologic: Reports weakness Endocrine: Endocrine: Reports fatigue and Denies palpitations [facility] Past Medical History Medical History Gastritis Gross hematuria Chronic atrial fibrillation (HFpEF) heart failure with preserved ejection fraction Low blood pressure Anemia Acute congestive heart failure Acute upper gastrointestinal bleeding Acute blood loss anemia COPD (chronic obstructive pulmonary disease) Hyperlipidemia Afib Nasal sinus tumor CAD (coronary artery disease) Family History Family History Mother No problems noted. Father No problems noted. Surgical History Surgical History Hx of CABG Social History Social History Household Members: Spouse Housing: House Do you presently have visiting nurse or other home services: No Alcohol intake: current Alcohol intake frequency: 0-2 drinks per day Alcohol type: beer Comment: Patient reports 3 beers in the afternoon and 1 mixed drink before bed, bon Patient Tobacco Use Status: Former Tobacco user Tobacco use type: Cigar Smoked in Last 30 Days: No e-Cigarette/Vaping Use: Former Use Use of substances other than those prescribed or required for medical reasons: No Advance Directives: Yes Advance Directives on File: Yes Advance Directives Date on File: 02/16/22 service: No Current occupational status: retired Cognitive needs: No Hearing needs: No Vision needs: Yes (rx glasses) Travel History Ebola Risk: Travel/Contact With Anyone From Affected Area/s: No Has Patient Experienced Ebola Symptoms: No Meds Allergies Allergy/AdvReac Type Severity Reaction Status Date / Time hydromorphone [From Dilaudid] AdvReac Confusion Verified 12/17/24 17:24 Active Medications: Current Medications Acetaminophen (Acetaminophen 325 Mg Tablet) 650 mg PO Q6H PRN PRN Reason: Pain, Mild 1-3,fever,headache Albuterol/Ipratropium (Albuterol/Iprat 2.5/0.5mg 3 Ml Ampul.Neb) 3 ml INHALE RQ4H PRN PRN Reason: Shortness of Breath/Wheezing Atorvastatin Calcium (Atorvastatin Calcium 40 Mg Tablet) 40 mg PO DAILY@1700 [facility] Benzonatate (Benzonatate 100 Mg Capsule) 100 mg PO TID PRN PRN Reason: Cough Budesonide (Budesonide 0.5 Mg/2 Ml Ampul.Neb) 0.5 mg INHALE RBID [facility] Last Admin: 12/18/24 07:51 Dose: 0.5 mg Calcium Carbonate (Calcium Carbonate 750 Mg Tab.Chew) 750 mg PO Q4H PRN PRN Reason: Heartburn Ceftriaxone Sodium (Ceftriaxone Sodium 2 Gm Vial) 2 gm IVPUSH Q24H [facility] Digoxin (Digoxin 0.125 Mg Tablet) 0.125 mg [facility]; Protocol Last Admin: 12/18/24 10:43 Dose: 0.125 mg Fenofibrate (Fenofibrate,Micronized 134 Mg Capsule) 134 mg PO DAILY@0700 [facility] Last Admin: 12/18/24 10:48 Dose: 134 mg Ferrous Sulfate (Ferrous Sulfate 324 Mg Tablet.) 324 mg PO BID@0700,1700 [facility] Last Admin: 12/18/24 10:44 Dose: 324 mg Folic Acid (Folic Acid 1 Mg Tablet) 1 mg PO DAILY [facility] Last Admin: 12/18/24 10:07 Dose: 1 mg Furosemide (Furosemide 40 Mg/4 Ml Vial) 40 mg IVPUSH BID@0900,1800 [facility]; Protocol Last Admin: 12/18/24 10:07 Dose: 40 mg Vancomycin HCl 750 mg/ Sodium (Chloride) 265 mls @ 265 mls/hr IV Q12H [facility] Last Infusion: 12/18/24 11:08 Dose: Infused Lorazepam (Lorazepam 0.5 Mg Tablet) 0.5 mg PO Q4H PRN PRN Reason: anxiety/restlessness Magnesium Hydroxide (Milk Of Magnesia 30 Ml Oral.Susp) 30 ml PO DAILY PRN PRN Reason: Constipation Melatonin (Melatonin 3 Mg Tablet) 6 mg PO BEDTIME PRN PRN Reason: Insomnia Metoprolol Succinate (Metoprolol Succinate Er 25 Mg Tab.Er.24h) 25 mg PO DAILY@1700 [facility]; Protocol Last Admin: 12/17/24 22:01 Dose: 25 mg Non-Formulary Medication (Dutasteride [Avodart]) 0.5 mg PO DAILY@1700 [facility] Omeprazole (Omeprazole 20 Mg Capsule.) 20 mg PO DAILY@0630 [facility] Last Admin: 12/18/24 06:23 Dose: 20 mg Ondansetron HCl (Ondansetron Hcl 4 Mg/2 Ml Vial) 4 mg IVPUSH Q8H PRN PRN Reason: Nausea and Vomiting Pharmacy Consult (Consult Rx Vancomycin Dosing) 1 each MISCELLANE DAILY PRN PRN Reason: Consult order Polyethylene Glycol (Polyethylene Glycol 3350 17 Gm Powd.Pack) 17 gm PO DAILY PRN PRN Reason: Constipation Potassium Chloride (Potassium Chloride Er 20 Meq Tab.Er.Prt) 20 meq PO DAILY [facility] Last Admin: 12/18/24 10:07 Dose: 20 meq Rivaroxaban (Rivaroxaban 20 Mg Tablet) 20 mg PO DAILY@1700 [facility] Senna (Sennosides 8.6 Mg Tablet) 17.2 mg PO BEDTIME [facility] Last Admin: 12/17/24 22:00 Dose: 17.2 mg Sodium Chloride (0.9 % Sodium Chloride Flush 3 Ml Syringe) 3 ml IVFLUSH QSHIFT [facility] Last Admin: 12/18/24 10:10 Dose: 3 ml Thiamine HCl (Thiamine Hcl 100 Mg Tablet) 100 mg PO DAILY [facility] Last Admin: 12/18/24 10:07 Dose: 100 mg Vitamin D (Cholecalciferol (Vitamin D3) 10 Mcg Tablet) 10 mcg PO DAILY@0700 [facility] Last Admin: 12/18/24 10:43 Dose: 10 mcg Home Medications ?Medication ?Instructions ?Recorded ?Confirmed ?Last Taken ?Type atorvastatin 40 mg tablet 40 mg PO DAILY@17003/19/22 12/17/24 12/16/24 History fenofibrate nanocrystallized 145 145 mg PO DAILY@0703/19/22 12/17/24 12/17/24 History mg tablet dutasteride 0.5 mg capsule 0.5 mg PO DAILY@1700 08/06/22 12/17/24 12/16/24 History (Avodart) cholecalciferol (vitamin D3) 10 10 mcg PO DAILY@0700 09/05/23 12/17/24 12/17/24 History mcg (400 unit) tablet ferrous sulfate 325 mg (65 mg 325 mg PO BID@0700,1700 09/05/23 12/17/24 12/17/24 History iron) tablet omeprazole 20 mg capsule,delayed 20 mg PO DAILY@0609/05/23 12/17/24 12/17/24 History release vit C 250 mg-vit E 90 mg-zinc 40 1 tab PO BID@1200,1700 09/05/23 12/17/24 12/17/24 History mg-copper 1 [id number] capsule (PreserVision AREDS-2) digoxin 125 mcg (0.125 mg) tablet 125 mcg PO [facility] 09/29/24 12/17/24 12/17/24 History metoprolol succinate 25 mg 25 mg PO DAILY@169912/17/24 12/17/24 12/16/24 History tablet,extended release 24 hr midodrine 2.5 mg tablet 2.5 mg PO TID@0700,1200,1700 12/17/24 12/17/24 12/17/24 History potassium chloride 20 mEq 20 meq PO DAILY@0700 12/17/24 12/17/24 12/17/24 History tablet,extended release rivaroxaban 20 mg tablet (Xarelto) 20 mg PO DAILY@1700 12/17/24 12/17/24 12/16/24 History Physical Exam 2 Vital Signs: Vital Signs: Last Vital Signs Temp 100.0 F 12/18/24 04:18 Pulse 73 12/18/24 11:59 Resp 21 H 12/18/24 11:59 BP 121/65 12/18/24 11:59 Pulse Ox 94 12/18/24 11:59 O2 Del Method Room Air 12/18/24 11:59 O2 Flow Rate 3 12/18/24 04:18 BMI result Body Mass Index 23.7 Const: General: cooperative, alert, awake and in distress mild and respiratory Nutritional Appearance: average body habitus Orientation/consciousness: p atient oriented x3 HEENT: Head: Yes normocephalic and Yes atraumatic Teeth and gingiva: poor dentition Neck: Neck: Yes trachea midline, Yes supple and Yes JVD Resp: Effort & Inspection: normal respiratory effort Auscultation: c rackles, wheezes and diminished lung sounds Cardio: Jugular venous distension: JVD Rhythm: abnormal rhythm irregularly irregular Heart sounds: S1 normal heart sound present, S2 normal heart sound present, no click, no gallops and no murmurs GI: Auscultation: normal bowel sounds Skin: General skin exam: no rashes or lesions noted and ecchymosis Neuro: General: patient oriented x3 and no focal motor deficits Extrem: General: No clubbing, No cyanosis and Yes edema Objective Labs and Meds 12/18/24 06:53 12/18/24 06:53 Lab results: Laboratory Results - last 24 hr 12/17/24 12/17/24 12/17/24 17:56 17:58 18:52 WBC 6.2 RBC 2.89 L Hgb 9.7 L Hct 30.5 L MCV 105.5 H MCH 33.6 H MCHC 31.8 RDW 17.9 H Plt Count 230 MPV 10.1 Immature Gran % (Auto) 0.2 Neut % (Auto) 75.9 H Lymph % (Auto) 9.8 L [place] % (Auto) 12.4 H Eos % (Auto) 1.0 Baso % (Auto) 0.7 Lymph # (Auto) 0.6 L [place] # (Auto) 0.8 Eos # (Auto) 0.1 Baso # (Auto) 0.0 Abs Immat Gran (auto) 0.01 Absolute Neuts (auto) 4.7 Absolute Nucleated RBC 0.000 Nucleated RBC % (auto) 0.0 Sodium 136 Potassium 3.6 Chloride 103 Carbon Dioxide 27 Anion Gap 10 L BUN 18 H Creatinine 0.93 Estim Creat Clear Calc 68.5 Estimated GFR > 60 Random Glucose 96 Lactic Acid 1.5 Calcium 9.0 Magnesium 1.6 Total Bilirubin 0.5 AST 43 H ALT 11 Alkaline Phosphatase 57 Troponin I High Sens 32.2 B-Natriuretic Peptide 730 H Total Protein 6.4 L Albumin 3.2 L Lipase 57 TSH 4.44 H Urine Color Yellow Urine Appearance Clear Urine pH 6.5 Ur Specific [place] 1.015 Urine Protein 300 (3+) H Urine Glucose (UA) Negative Urine Ketones Negative Urine Blood Large (3+) H Urine Nitrite Negative Ur Leukocyte Esterase Negative Urine RBC >20 H Urine WBC 0-5 Ur Squamous Epith Cells 0-2 Urine Bacteria None Seen Hyaline Casts 0-2 Nasal Screen MRSA (PCR) Nasal S. aureus Screen Nasal MRSA/S.aureus Interp Digoxin Influenza Type A (PCR) NEGATIVE Influenza Type B (PCR) NEGATIVE RSV RNA Qual (PCR) NEGATIVE SARS-CoV-2 RNA (RT-PCR) NEGATIVE 12/17/24 12/17/24 12/18/24 21:06 21:24 06:53 WBC 8.0 RBC 2.90 L Hgb 9.9 L Hct 31.0 L MCV 106.9 H MCH 34.1 H MCHC 31.9 RDW 18.4 H Plt Count 184 MPV 10.9 Immature Gran % (Auto) 0.4 Neut % (Auto) 81.3 H Lymph % (Auto) 8.6 L Pickett % (Auto) 8.6 Eos % (Auto) 0.5 Baso % (Auto) 0.6 Lymph # (Auto) 0.7 L [place] # (Auto) 0.7 Eos # (Auto) 0.0 Baso # (Auto) 0.1 Abs Immat Gran (auto) 0.03 Absolute Neuts (auto) 6.5 Absolute Nucleated RBC 0.000 Nucleated RBC % (auto) 0.0 Sodium 138 Potassium 3.7 Chloride 105 Carbon Dioxide 26 Anion Gap 11 L BUN 15 Creatinine 0.80 Estim Creat Clear Calc Estimated GFR Random Glucose Lactic Acid Calcium Magnesium Total Bilirubin AST ALT Alkaline Phosphatase Troponin I High Sens B-Natriuretic Peptide Total Protein Albumin Lipase TSH Urine Color Urine Appearance Urine pH Ur Specific [place] Urine Protein Urine Glucose (UA) Urine Ketones Urine Blood Urine Nitrite Ur Leukocyte Esterase Urine RBC Urine WBC Ur Squamous Epith Cells Urine Bacteria Hyaline Casts Nasal Screen MRSA (PCR) POSITIVE A Nasal S. aureus Screen POSITIVE A Nasal MRSA/S.aureus Interp SEE NOTE Digoxin 0.7 L Influenza Type A (PCR) Influenza Type B (PCR) RSV RNA Qual (PCR) SARS-CoV-2 RNA (RT-PCR) 12/18/24 12/18/24 12/18/24 06:53 06:53 06:53 WBC RBC Hgb Hct MCV MCH MCHC RDW Plt Count MPV Immature Gran % (Auto) Neut % (Auto) Lymph % (Auto) Pickett % (Auto) Eos % (Auto) Baso % (Auto) Lymph # (Auto) [place]ett # (Auto) Eos # (Auto) Baso # (Auto) Abs Immat Gran (auto) Absolute Neuts (auto) Absolute Nucleated RBC Nucleated RBC % (auto) Sodium Potassium Chloride Carbon Dioxide Anion Gap BUN Creatinine 0.79 Estim Creat Clear Calc 79.7 80.7 Estimated GFR > 60 > 60 Random Glucose 88 Lactic Acid Calcium 9.1 Magnesium 1.7 Total Bilirubin 0.5 AST 37 ALT < 6 Alkaline Phosphatase 47 Troponin I High Sens B-Natriuretic Peptide Total Protein 5.6 L Albumin 2.8 L Lipase TSH Urine Color Urine Appearance Urine pH Ur Specific [place] Urine Protein Urine Glucose (UA) Urine Ketones Urine Blood Urine Nitrite Ur Leukocyte Esterase Urine RBC Urine WBC Ur Squamous Epith Cells Urine Bacteria Hyaline Casts Nasal Screen MRSA (PCR) Nasal S. aureus Screen Nasal MRSA/S.aureus Interp Digoxin 0.6 L Influenza Type A (PCR) Influenza Type B (PCR) RSV RNA Qual (PCR) SARS-CoV-2 RNA (RT-PCR) Assessment and Plan (1) Decompensated heart failure: Status: Acute Patient presented with progressive shortness of breath and fluid overload suggestive of decompensated congestive heart failure. Also could have COPD exacerbation with possible multifocal pneumonia. Patient clinically responded diuretic although intake and output chart appears to be inaccurate. Continue IV diuresis. Strict intake and output chart needs to be pursued. Continue monitor BNP as well as BNP and replace electrolytes as needed. Continue rate control for atrial fibrillation. Can repeat echocardiogram to assess for LV systolic function as well as for evaluation of pulmonary hypertension RV function. Overall multiple comorbidities and prognosis is guarded. Continue COPD management. (2) Chronic atrial fibrillation: Status: Acute Chronic atrial fibrillation, currently rate controlled. Continue digoxin as well as metoprolol therapy. Continue full oral anticoagulation, currently on Xarelto 20 mg daily. Will follow with you Procedures Date of Service Date of Service: 12/18/24
--- NOTE | 2024-12-18 15:31 | P.PNIM_ITS ---
Subjective Subjective Date of Service: 12/19/24 Interval History: chf execerebation Review of Systems sob somewhat improving has cough Review of Systems: Yes all other systems are reviewed and are negative Physical Exam 2 Vital Signs: Vital Signs: Last Vital Signs Temp 97.5 F 12/18/24 14:13 Pulse 66 12/18/24 14:13 Resp 14 12/18/24 14:13 BP 172/93 H 12/18/24 14:13 Pulse Ox 100 12/18/24 14:13 O2 Del Method Room Air 12/18/24 14:13 O2 Flow Rate 3 12/18/24 04:18 BMI result Body Mass Index 23.7 Appearance: Alert.? Oriented X3. cvs: rrr, [id number]. res: air entry somewhat improving ,has mild wheezes abd: no rebound or guarding ,nt, bs present. ext pulses present , no cyanosis, 2+ edema. neuro: axo3 , nonfocal. Objective Data Active Medications Acetaminophen (Acetaminophen 325 Mg Tablet) 650 mg PO Q6H PRN PRN Reason: Pain, Mild 1-3,fever,headache Albuterol/Ipratropium (Albuterol/Iprat 2.5/0.5mg 3 Ml Ampul.Neb) 3 ml INHALE RQ4H PRN PRN Reason: Shortness of Breath/Wheezing Atorvastatin Calcium (Atorvastatin Calcium 40 Mg Tablet) 40 mg PO DAILY@1700 [facility] Benzonatate (Benzonatate 100 Mg Capsule) 100 mg PO TID PRN PRN Reason: Cough Budesonide (Budesonide 0.5 Mg/2 Ml Ampul.Neb) 0.5 mg INHALE ID [facility] Last Admin: 12/18/24 07:51 Dose: 0.5 mg Documented By: MICHELLE Calcium Carbonate (Calcium Carbonate 750 Mg Tab.Chew) 750 mg PO Q4H PRN PRN Reason: Heartburn Ceftriaxone Sodium (Ceftriaxone Sodium 2 Gm Vial) 2 gm IVPUSH Q24H [facility] Digoxin (Digoxin 0.125 Mg Tablet) 0.125 mg PO [facility]; Protocol Last Admin: 12/18/24 10:43 Dose: 0.125 mg Documented By: DENIZ Fenofibrate (Fenofibrate,Micronized 134 Mg Capsule) 134 mg PO DAILY@0700 [facility] Last Admin: 12/18/24 10:48 Dose: 134 mg Documented By: DENIZ Ferrous Sulfate (Ferrous Sulfate 324 Mg Tablet.) 324 mg PO BID@0700,1700 [facility] Last Admin: 12/18/24 10:44 Dose: 324 mg Documented By: DENIZ Folic Acid (Folic Acid 1 Mg Tablet) 1 mg PO DAILY [facility] Last Admin: 12/18/24 10:07 Dose: 1 mg Documented By: DENIZ Furosemide (Furosemide 40 Mg/4 Ml Vial) 40 mg IVPUSH BID@0900,1800 [facility]; Protocol Last Admin: 12/18/24 10:07 Dose: 40 mg Documented By: DENIZ Vancomycin HCl 750 mg/ Sodium (Chloride) 265 mls @ 265 mls/hr IV Q12H [facility] Last Infusion: 12/18/24 11:08 Dose: Infused Documented By: DENIZ Lorazepam (Lorazepam 0.5 Mg Tablet) 0.5 mg PO Q4H PRN PRN Reason: anxiety/restlessness Magnesium Hydroxide (Milk Of Magnesia 30 Ml Oral.Susp) 30 ml PO DAILY PRN PRN Reason: Constipation Melatonin (Melatonin 3 Mg Tablet) 6 mg PO BEDTIME PRN PRN Reason: Insomnia Metoprolol Succinate (Metoprolol Succinate Er 25 Mg Tab.Er.24h) 25 mg PO DAILY@1700 [facility]; Protocol Last Admin: 12/17/24 22:01 Dose: 25 mg Documented By: PATRICIA Non-Formulary Medication (Dutasteride [Avodart]) 0.5 mg PO DAILY@1700 [facility] Omeprazole (Omeprazole 20 Mg Capsule.) 20 mg PO DAILY@0630 [facility] Last Admin: 12/18/24 06:23 Dose: 20 mg Documented By: OTTO Ondansetron HCl (Ondansetron Hcl 4 Mg/2 Ml Vial) 4 mg IVPUSH Q8H PRN PRN Reason: Nausea and Vomiting Pharmacy Consult (Consult Rx Vancomycin Dosing) 1 each MISCELLANE DAILY PRN PRN Reason: Consult order Polyethylene Glycol (Polyethylene Glycol 3350 17 Gm Powd.Pack) 17 gm PO DAILY PRN PRN Reason: Constipation Potassium Chloride (Potassium Chloride Er 20 Meq Tab.Er.Prt) 20 meq PO DAILY [facility] Last Admin: 12/18/24 10:07 Dose: 20 meq Documented By: DENIZ Rivaroxaban (Rivaroxaban 20 Mg Tablet) 20 mg PO DAILY@1700 [facility] Senna (Sennosides 8.6 Mg Tablet) 17.2 mg PO BEDTIME [facility] Last Admin: 12/17/24 22:00 Dose: 17.2 mg Documented By: PATRICIA Sodium Chloride (0.9 % Sodium Chloride Flush 3 Ml Syringe) 3 ml IVFLUSH QSHIFT [facility] Last Admin: 12/18/24 10:10 Dose: 3 ml Documented By: DENIZ Thiamine HCl (Thiamine Hcl 100 Mg Tablet) 100 mg PO DAILY [facility] Last Admin: 12/18/24 10:07 Dose: 100 mg Documented By: DENIZ Vitamin D (Cholecalciferol (Vitamin D3) 10 Mcg Tablet) 10 mcg PO DAILY@0700 [facility] Last Admin: 12/18/24 10:43 Dose: 10 mcg Documented By: DENIZ Labs 12/18/24 06:53 12/19/24 06:31 Labs: Laboratory Results - last 24 hr 12/17/24 12/17/24 12/17/24 17:56 17:58 18:52 MCV 105.5 H MCH 33.6 H MCHC 31.8 RDW 17.9 H Plt Count 230 MPV 10.1 Immature Gran % (Auto) 0.2 Neut % (Auto) 75.9 H Lymph % (Auto) 9.8 L [place] % (Auto) 12.4 H Eos % (Auto) 1.0 Baso % (Auto) 0.7 Lymph # (Auto) 0.6 L [place] # (Auto) 0.8 Eos # (Auto) 0.1 Baso # (Auto) 0.0 Abs Immat Gran (auto) 0.01 Absolute Neuts (auto) 4.7 Absolute Nucleated RBC 0.000 Nucleated RBC % (auto) 0.0 Anion Gap 10 L Estim Creat Clear Calc 68.5 Estimated GFR > 60 Random Glucose 96 Lactic Acid 1.5 Calcium 9.0 Magnesium 1.6 Total Bilirubin 0.5 AST 43 H ALT 11 Alkaline Phosphatase 57 Troponin I High Sens 32.2 B-Natriuretic Peptide 730 H Total Protein 6.4 L Albumin 3.2 L Lipase 57 TSH 4.44 H Urine Color Yellow Urine Appearance Clear Urine pH 6.5 Ur Specific [place] 1.015 Urine Protein 300 (3+) H Urine Glucose (UA) Negative Urine Ketones Negative Urine Blood Large (3+) H Urine Nitrite Negative Ur Leukocyte Esterase Negative Urine RBC >20 H Urine WBC 0-5 Ur Squamous Epith Cells 0-2 Urine Bacteria None Seen Hyaline Casts 0-2 Nasal Screen MRSA (PCR) Nasal S. aureus Screen Nasal MRSA/S.aureus Interp Digoxin Influenza Type A (PCR) NEGATIVE Influenza Type B (PCR) NEGATIVE RSV RNA Qual (PCR) NEGATIVE SARS-CoV-2 RNA (RT-PCR) NEGATIVE 12/17/24 12/17/24 12/18/24 21:06 21:24 06:53 MCV 106.9 H MCH 34.1 H MCHC 31.9 RDW 18.4 H Plt Count 184 MPV 10.9 Immature Gran % (Auto) 0.4 Neut % (Auto) 81.3 H Lymph % (Auto) 8.6 L [place] % (Auto) 8.6 Eos % (Auto) 0.5 Baso % (Auto) 0.6 Lymph # (Auto) 0.7 L [place] # (Auto) 0.7 Eos # (Auto) 0.0 Baso # (Auto) 0.1 Abs Immat Gran (auto) 0.03 Absolute Neuts (auto) 6.5 Absolute Nucleated RBC 0.000 Nucleated RBC % (auto) 0.0 Anion Gap 11 L Estim Creat Clear Calc 79.7 Estimated GFR Random Glucose Lactic Acid Calcium Magnesium Total Bilirubin AST ALT Alkaline Phosphatase Troponin I High Sens B-Natriuretic Peptide Total Protein Albumin Lipase TSH Urine Color Urine Appearance Urine pH Ur Specific [place] Urine Protein Urine Glucose (UA) Urine Ketones Urine Blood Urine Nitrite Ur Leukocyte Esterase Urine RBC Urine WBC Ur Squamous Epith Cells Urine Bacteria Hyaline Casts Nasal Screen MRSA (PCR) POSITIVE A Nasal S. aureus Screen POSITIVE A Nasal MRSA/S.aureus Interp SEE NOTE Digoxin 0.7 L Influenza Type A (PCR) Influenza Type B (PCR) RSV RNA Qual (PCR) SARS-CoV-2 RNA (RT-PCR) 12/18/24 12/18/24 06:53 06:53 MCV MCH MCHC RDW Plt Count MPV Immature Gran % (Auto) Neut % (Auto) Lymph % (Auto) [place] % (Auto) Eos % (Auto) Baso % (Auto) Lymph # (Auto) [place] # (Auto) Eos # (Auto) Baso # (Auto) Abs Immat Gran (auto) Absolute Neuts (auto) Absolute Nucleated RBC Nucleated RBC % (auto) Anion Gap Estim Creat Clear Calc 80.7 Estimated GFR > 60 > 60 Random Glucose 88 Lactic Acid Calcium 9.1 Magnesium 1.7 Total Bilirubin 0.5 AST 37 ALT < 6 Alkaline Phosphatase 47 Troponin I High Sens B-Natriuretic Peptide Total Protein 5.6 L Albumin 2.8 L Lipase TSH Urine Color Urine Appearance Urine pH Ur Specific [place] Urine Protein Urine Glucose (UA) Urine Ketones Urine Blood Urine Nitrite Ur Leukocyte Esterase Urine RBC Urine WBC Ur Squamous Epith Cells Urine Bacteria Hyaline Casts Nasal Screen MRSA (PCR) Nasal S. aureus Screen Nasal MRSA/S.aureus Interp Digoxin 0.6 L Influenza Type A (PCR) Influenza Type B (PCR) RSV RNA Qual (PCR) SARS-CoV-2 RNA (RT-PCR) Assessment and Plan (1) Acute respiratory failure with hypoxia: Status: Acute (2) Decompensated heart failure: Status: Acute Assessment and Plan: 79 yo male with PMH Anemia followed by Oncology undergoes intermittent tranfusions, persistent AFib on Xarelto, HFrEF, GIB, RUL lung mass noncancerous per pt, peripheral vascular disease with history of femoral bypass grafting and cadaver vein placement BLEs, COPD/emphysema patient is not on home O2, smoking cessation 20 years prior, alcohol use daily, diverticulosis, cholelithiasis, prostatomegaly, right maxillary sinus cancer currently cured, CABG x2 2004, epistaxis and hematuria secondary to Xarelto, hyperlipidemia, GERD is being admitted for multifocal pneumonia and CHF exacerbation. Decompensated heart failure moniter BNP 730, troponin 32 echo: 40-45% plan: daily weights i/o Lasix 40 IV b.i.d.,Oxygen via nasal cannula, patient does not use oxygen at home, wean as tolerated Fluid restriction 1500 Pneumonia-Pt does not meet criteria for sepsis at this time ct chest reviewed by pulm -less likely pneumonia ,likely chf. Viral studies all negative legionnaires and strep pneumonia pending -MRSA screen -positive has cough /some wheezing : possible mild copd excerebation-continue home medications ,antibiotics , taper oxygen Generalized weakness -PT eval requested -Fall prevention measures in place Lung nodule RUL/ mediastinal adenopathy -Recent workup via PET scan led to bronchoscopy and pathology was negative for malignancy, also in lymph nodes negative for malignancy. Patient follows with Dr. Eng at [facility] and was given the option of resection versus follow-up imaging and patient is currently doing follow-up imaging. -patient will continue follow with Dr. 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 -Followed with [facility], received radiation at [facility] currently has a clean bill of health AFib on Xarelto -DIg level requested -Continue Xaralto, h/h stable -Continue metoprolol -Telemetry -MG stable, TSH requested Anemia/ hx of outpatient transfusions -Follows with oncology as an outpatient -Continue iron -H/H stable, monitor daily Hyperlipidemia -Continue statin and fenofibrate -LFTs stable GERD -Omeperazole PVD -edema is dependent, no hx of lymphedema -Pt follows with vascular as an outpatient at [facility], last appt was last week Alcohol use daily -CIWA, no indication for phenobarbitol -Thiamine and folic acid ordred -Pt denies hx of withdrawal or liver issues DVT prophylaxis: Xarelto. PPI prophylaxis: Omeprazole Quality Stroke Does the patient have a stroke diagnosis?: No Reason for No Anti-thrombotic by Day Two: N/A - Med Ordered VTE Prior VTE?: No VTE Risk Level:: Medical - moderate - high VTE Device Contraindication: N/A - Device Ordered VTE Drug Contraindication: N/A - Med Ordered
[2024-12-18] MEDS: Rivaroxaban 20 MG TABLET PO (16:13)
[2024-12-18] MEDS: Atorvastatin Calcium 40 MG TABLET PO (16:13)
[2024-12-18] MEDS: predniSONE 20 MG TABLET 40 MG PO (16:13)
[2024-12-18] MEDS: Metoprolol Succinate ER 25 MG TAB.ER.24H PO (16:13)
[2024-12-18] MEDS: Doxycycline Monohydrate 100 MG CAPSULE PO (16:13)
[2024-12-18] MEDS: cefTRIAXone sodium 2 GM VIAL IVPUSH (18:01)
[2024-12-19] VITALS (11 sets, daily range): BP systolic 110–144; BP diastolic 56–68; PULSE 77–89; RESP 15–24; TEMP 36.1–36.6; O2SAT 91–99; BMI 24.2
[2024-12-19] MEDS: Cholecalciferol (Vitamin D3) 10 MCG TABLET PO (06:22)
[2024-12-19] MEDS: Doxycycline Monohydrate 100 MG CAPSULE PO ×2 (06:22→19:43)
[2024-12-19] MEDS: Omeprazole 20 MG CAPSULE.DR PO (06:22)
[2024-12-19] MEDS: Fenofibrate,Micronized 134 MG CAPSULE PO (06:22)
[2024-12-19] MEDS: 0.9 % Sodium Chloride Flush 3 ML SYRINGE IVFLUSH ×4 (06:24→19:46)
[2024-12-19] MEDS: Ferrous Sulfate 324 MG TABLET.DR PO ×2 (06:36→17:53)
[2024-12-19 06:59] LABS: Vancomycin Random 10.6 mcg/mL (15-20)
[2024-12-19 07:00] LABS: Creatinine Clr Calc Pharmacy 74.1; Estimated Glomerular Filt Rate > 60
[2024-12-19] MEDS: Budesonide 0.5 MG/2 ML AMPUL.NEB INHALE ×2 (08:07→19:45)
--- NOTE | 2024-12-19 08:36 | HE.PHANOTE ---
RE VANCO Patient was on vancomycin previously in admission. Order was discontinued by Dr Rios then restarted by Dr Rios. Patients level came back this morning at 10.6. Will dose patient with 750 mg now and do dosing of 750 mg Q12H. Will get a level after 2 doses to see if adjustments are needed. Predicted AUC 473. level due for 12/20 @0700
[2024-12-19] MEDS: Furosemide 40 MG/4 ML VIAL IVPUSH ×2 (08:47→17:56)
[2024-12-19] MEDS: Potassium Chloride ER 20 MEQ TAB.ER.PRT PO (08:47)
[2024-12-19] MEDS: Folic Acid 1 MG TABLET PO (08:47)
[2024-12-19] MEDS: vancomycin HCL 750 MG in 0.9 % Sodium Chloride 250 ML 265 MG IV (08:48)
[2024-12-19] MEDS: Thiamine HCL 100 MG TABLET PO (08:48)
[2024-12-19] MEDS: predniSONE 20 MG TABLET 40 MG PO (08:48)
--- NOTE | 2024-12-19 10:39 | PM.PNCARD ---
Subjective Subjective Date of Service: 12/19/24 Principal diagnosis: CHF, chronic AFib Interval history: Patient has diuresed well overnight. Feeling better. Cough has improved. Leg edema has improved. Review of Systems Constitutional: Reports weakness Cardiovascular: Denies chest pain, Denies leg edema, Denies lightheadedness and Reports dyspnea on exertion Respiratory: Reports cough (Improved) and Reports dyspnea on exertion Musculoskeletal: Reports no additional musculoskeletal complaints Reports weakness Physical Exam Vital Signs: Last Vital Signs Temp 97.9 F 12/19/24 07:00 Pulse 88 12/19/24 08:07 Resp 15 12/19/24 08:07 BP 124/58 L 12/19/24 08:47 Pulse Ox 99 12/19/24 07:00 O2 Del Method Nasal Cannula 12/19/24 07:00 O2 Flow Rate 2 12/19/24 07:00 BMI result Body Mass Index 24.2 Const General: cooperative, alert, awake and in distress mild and respiratory Nutritional Appearance: average body habitus Orientation/consciousness: patient oriented x3 HEENT Head: Yes normocephalic and Yes atraumatic Teeth and gingiva: poor dentition Neck Neck: Yes trachea midline, Yes supple and Yes JVD Resp Effort & Inspection: normal respiratory effort Auscultation: crackles, wheezes and diminished lung sounds Cardio Jugular venous distension: JVD Rhythm: abnormal rhythm irregularly irregular Heart sounds: S1 normal heart sound present, S2 normal heart sound present, no click, no gallops and no murmurs GI Auscultation: normal bowel sounds Skin General skin exam: no rashes or lesions noted and ecchymosis Neuro General: patient oriented x3 and no focal motor deficits Extrem General: No clubbing, No cyanosis and Yes edema Objective Labs and Meds 12/18/24 06:53 12/19/24 06:31 Lab results: Laboratory Results - last 24 hr 12/17/24 12/19/24 21:24 06:31 Hold Purple Top SEE NOTE Creatinine 0.86 Estim Creat Clear Calc 74.1 Estimated GFR > 60 Nasal Screen MRSA (PCR) POSITIVE A Nasal S. aureus Screen POSITIVE A Nasal MRSA/S.aureus Interp SEE NOTE Random Vancomycin 10.6 L Progress Note: A&P Assessment and plan (1) Decompensated heart failure: Status: Acute Assessment and Plan: Decompensated congestive heart failure with mild reduction LV ejection fraction overall. Continue IV diuresis. Strict intake and output chart needs to be pursued. Continue monitor renal function as well as electrolytes. Continue rate control with metoprolol and digoxin. Add Jardiance 10 mg to his regimen. For atrial fibrillation continue rate control as well as continue current diuretic regimen. Continue treat underlying pulmonary disease Will follow with you Time Spent With Patient Time: Total time managing care of this patient today ____ minutes. Progress Note: Quality Stroke Does the patient have a stroke diagnosis?: No Reason for No Anti-thrombotic by Day Two: N/A - Med Ordered Procedures Date of Service Date of Service: 12/19/24
--- NOTE | 2024-12-19 16:20 | HO.PM.IMPN ---
Subjective Subjective Date of Service: 12/19/24 Interval History: chf bacteremia Review of Systems sob/cough improving no fever Review of Systems: Yes all other systems are reviewed and are negative Physical Exam Vital Signs: Vital Signs: Last Vital Signs Temp 97.8 F 12/19/24 15:23 Pulse 84 12/19/24 15:23 Resp 18 12/19/24 15:23 BP 112/58 L 12/19/24 15:23 Pulse Ox 91 L 12/19/24 15:23 O2 Del Method Room Air 12/19/24 15:23 O2 Flow Rate 2 12/19/24 07:00 BMI result Body Mass Index 24.2 Appearance: Alert.? Oriented X3. cvs: rrr, [id number]. res: air entry somewhat improving . abd: no rebound or guarding ,nt, bs present. ext pulses present , no cyanosis, 2+ edema. neuro: axo3 , nonfocal. Objective Data Active Medications Acetaminophen (Acetaminophen 325 Mg Tablet) 650 mg PO Q6H PRN PRN Reason: Pain, Mild 1-3,fever,headache Albuterol/Ipratropium (Albuterol/Iprat 2.5/0.5mg 3 Ml Ampul.Neb) 3 ml INHALE RQ4H PRN PRN Reason: Shortness of Breath/Wheezing Atorvastatin Calcium (Atorvastatin Calcium 40 Mg Tablet) 40 mg PO DAILY@1700 [facility] Last Admin: 12/18/24 16:13 Dose: 40 mg Documented By: CAL Benzonatate (Benzonatate 100 Mg Capsule) 100 mg PO TID PRN PRN Reason: Cough Budesonide (Budesonide 0.5 Mg/2 Ml Ampul.Neb) 0.5 mg INHALE RBID [facility] Last Admin: 12/19/24 08:07 Dose: 0.5 mg Documented By: LAURIE Calcium Carbonate (Calcium Carbonate 750 Mg Tab.Chew) 750 mg PO Q4H PRN PRN Reason: Heartburn Ceftriaxone Sodium (Ceftriaxone Sodium 2 Gm Vial) 2 gm IVPUSH Q24H [facility] Last Admin: 12/18/24 18:01 Dose: 2 gm Documented By: CAL Digoxin (Digoxin 0.125 Mg Tablet) 0.125 mg PO [facility]; Protocol Last Admin: 12/18/24 10:43 Dose: 0.125 mg Documented By: HO.ANTONIT Fenofibrate (Fenofibrate,Micronized 134 Mg Capsule) 134 mg PO DAILY@0700 [facility] Last Admin: 12/19/24 06:22 Dose: 134 mg Documented By: AMARJIT Ferrous Sulfate (Ferrous Sulfate 324 Mg Tablet.) 324 mg PO BID@0700,1700 [facility] Last Admin: 12/19/24 06:36 Dose: 324 mg Documented By: AMARJIT Finasteride (Finasteride 5 Mg Tablet) 5 mg PO DAILY@1700 [facility] Folic Acid (Folic Acid 1 Mg Tablet) 1 mg PO DAILY [facility] Last Admin: 12/19/24 08:47 Dose: 1 mg Documented By: SE Furosemide (Furosemide 40 Mg/4 Ml Vial) 40 mg IVPUSH BID@0900,1800 [facility]; Protocol Last Admin: 12/19/24 08:47 Dose: 40 mg Documented By: SE Vancomycin HCl 750 mg/ Sodium (Chloride) 265 mls @ 265 mls/hr IV Q12H [facility] Last Infusion: 12/19/24 09:56 Dose: Infused Documented By: SE Lorazepam (Lorazepam 0.5 Mg Tablet) 0.5 mg PO Q4H PRN PRN Reason: anxiety/restlessness Magnesium Hydroxide (Milk Of Magnesia 30 Ml Oral.Susp) 30 ml PO DAILY PRN PRN Reason: Constipation Melatonin (Melatonin 3 Mg Tablet) 6 mg PO BEDTIME PRN PRN Reason: Insomnia Metoprolol Succinate (Metoprolol Succinate Er 25 Mg Tab.Er.24h) 25 mg PO DAILY@1700 [facility]; Protocol Last Admin: 12/18/24 16:13 Dose: 25 mg Documented By: CAL Omeprazole (Omeprazole 20 Mg Capsule.) 20 mg PO DAILY@0630 [facility] Last Admin: 12/19/24 06:22 Dose: 20 mg Documented By: AMARJIT Ondansetron HCl (Ondansetron Hcl 4 Mg/2 Ml Vial) 4 mg IVPUSH Q8H PRN PRN Reason: Nausea and Vomiting Pharmacy Consult (Consult Rx Vancomycin Dosing) 1 each MISCELLANE DAILY PRN PRN Reason: Consult order Polyethylene Glycol (Polyethylene Glycol 3350 17 Gm Powd.Pack) 17 gm PO DAILY PRN PRN Reason: Constipation Potassium Chloride (Potassium Chloride Er 20 Meq Tab.Er.Prt) 20 meq PO DAILY [facility] Last Admin: 12/19/24 08:47 Dose: 20 meq Documented By: SE Prednisone (Prednisone 20 Mg Tablet) 40 mg PO DAILY [facility] Last Admin: 12/19/24 08:48 Dose: 40 mg Documented By: SE Rivaroxaban (Rivaroxaban 20 Mg Tablet) 20 mg PO DAILY@1700 [facility] Last Admin: 12/18/24 16:13 Dose: 20 mg Documented By: MARISABELARShady Senna (Sennosides 8.6 Mg Tablet) 17.2 mg PO BEDTIME [facility] Last Admin: 12/18/24 20:20 Dose: Not Given Documented By: AMARJIT Non-Admin Reason: Patient Refused Sodium Chloride (0.9 % Sodium Chloride Flush 3 Ml Syringe) 3 ml IVFLUSH QSHIFT [facility] Last Admin: 12/19/24 08:49 Dose: 3 ml Documented By: SE Thiamine HCl (Thiamine Hcl 100 Mg Tablet) 100 mg PO DAILY [facility] Last Admin: 12/19/24 08:48 Dose: 100 mg Documented By: SE Vitamin D (Cholecalciferol (Vitamin D3) 10 Mcg Tablet) 10 mcg PO DAILY@0700 [facility] Last Admin: 12/19/24 06:22 Dose: 10 mcg Documented By: AMARJIT Labs 12/18/24 06:53 12/19/24 06:31 Labs: Laboratory Results - last 24 hr 12/19/24 06:31 Hold Purple Top SEE NOTE Estim Creat Clear Calc 74.1 Estimated GFR > 60 Random Vancomycin 10.6 L Microbiology Microbiology Results: Microbiology 12/17/24 17:54 Blood Culture - Final Blood - Venous Coag negative Staphylococcus 12/17/24 17:58 Blood Culture - Preliminary Blood - Venous No growth after 24 hours. Assessment and Plan (1) Acute respiratory failure with hypoxia: Status: Acute (2) Decompensated heart failure: Status: Acute Assessment and Plan: 79 yo male with PMH Anemia followed by Oncology undergoes intermittent tranfusions, persistent AFib on Xarelto, HFrEF, GIB, RUL lung mass noncancerous per pt, peripheral vascular disease with history of femoral bypass grafting and cadaver vein placement BLEs, COPD/emphysema patient is not on home O2, smoking cessation 20 years prior, alcohol use daily, diverticulosis, cholelithiasis, prostatomegaly, right maxillary sinus cancer currently cured, CABG x2 2004, epistaxis and hematuria secondary to Xarelto, hyperlipidemia, GERD is being admitted for multifocal pneumonia and CHF exacerbation. Decompensated heart failure moniter BNP 730, troponin 32 echo: 40-45% plan: daily weights i/o 1.2 liter negative Lasix 40 IV b.i.d.,Oxygen via nasal cannula, patient does not use oxygen at home, wean as tolerated Fluid restriction 1500 Pneumonia-Pt does not meet criteria for sepsis at this time ct chest reviewed by pulm -less likely pneumonia ,likely chf. Viral studies all negative legionnaires and strep pneumonia pending -MRSA screen -positive ?bactermia -blood cultures positive-but coagulae negative staph -will dc juan. has cough /some wheezing : possible mild copd excerebation-continue home medications ,antibiotics , taper oxygen Generalized weakness -PT eval requested -Fall prevention measures in place Lung nodule RUL/ mediastinal adenopathy -Recent workup via PET scan led to bronchoscopy and pathology was negative for malignancy, also in lymph nodes negative for malignancy. Patient follows with Dr. Eng at [facility] and was given the option of resection versus follow-up imaging and patient is currently doing follow-up imaging. -patient will continue follow with Dr. 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 -Followed with [facility], received radiation at [facility] currently has a clean bill of health AFib on Xarelto -DIg level requested -Continue Xaralto, h/h stable -Continue metoprolol -Telemetry -MG stable, TSH requested Anemia/ hx of outpatient transfusions -Follows with oncology as an outpatient -Continue iron -H/H stable, monitor daily Hyperlipidemia -Continue statin and fenofibrate -LFTs stable GERD -Omeperazole PVD -edema is dependent, no hx of lymphedema -Pt follows with vascular as an outpatient at [facility], last appt was last week Alcohol use daily -CIWA, no indication for phenobarbitol -Thiamine and folic acid ordred -Pt denies hx of withdrawal or liver issues DVT prophylaxis: Xarelto. PPI prophylaxis: Omeprazole ongoing need: chf excerebation: Need IV Lasix, I&O monitoring, renal function electrolyte monitoring. Quality Stroke Does the patient have a stroke diagnosis?: No Reason for No Anti-thrombotic by Day Two: N/A - Med Ordered VTE Prior VTE?: No VTE Risk Level:: Medical - moderate - high VTE Device Contraindication: N/A - Device Ordered VTE Drug Contraindication: N/A - Med Ordered
[2024-12-19] MEDS: Finasteride 5 MG TABLET PO (17:53)
[2024-12-19] MEDS: Metoprolol Succinate ER 25 MG TAB.ER.24H PO (17:53)
[2024-12-19] MEDS: Atorvastatin Calcium 40 MG TABLET PO (17:53)
[2024-12-19] MEDS: cefTRIAXone sodium 2 GM VIAL IVPUSH (17:54)
[2024-12-19] MEDS: Rivaroxaban 20 MG TABLET PO (17:54)
--- NOTE | 2024-12-20 00:23 | W.PM.IDCN ---
History of Present Illness Data of Consult Service Date: 12/20/24 Requesting physician: Marietta Rios Primary Care Provider: Gary Alvarado MD HPI Reason for consult: hypoxia He presents with shortness of breath an sound hypoxia. He has no fever or chills. He has some CHF,is followed by Dr Mccoy. CT chest chronic infiltrate,acute CHF. Review of Systems Review of Systems: Yes all other systems are reviewed and are negative [facility] Past Medical History Medical History Gastritis Gross hematuria Chronic atrial fibrillation (HFpEF) heart failure with preserved ejection fraction Low blood pressure Anemia Acute congestive heart failure Acute upper gastrointestinal bleeding Acute blood loss anemia COPD (chronic obstructive pulmonary disease) Hyperlipidemia Afib Nasal sinus tumor CAD (coronary artery disease) Family History Family History Mother No problems noted. Father No problems noted. Surgical History Surgical History Hx of CABG Social History Social History Household Members: Spouse and Family Housing: House Do you presently have visiting nurse or other home services: Yes Alcohol intake: current Alcohol intake frequency: 0-2 drinks per day Alcohol type: beer Comment: Patient reports 3 beers in the afternoon and 1 mixed drink before bed, bon Patient Tobacco Use Status: Former Tobacco user Tobacco use type: Cigar e-Cigarette/Vaping Use: Never Used Advance Directives Date on File: 02/16/22 service: No Current occupational status: retired Cognitive needs: No Hearing needs: No Vision needs: Yes (rx glasses) Travel History Ebola Risk: Travel/Contact With Anyone From Affected Area/s: No Has Patient Experienced Ebola Symptoms: No Meds Allergies Allergy/AdvReac Type Severity Reaction Status Date / Time hydromorphone [From Dilaudid] AdvReac Confusion Verified 12/17/24 17:24 Active Medications: Current Medications Acetaminophen (Acetaminophen 325 Mg Tablet) 650 mg PO Q6H PRN PRN Reason: Pain, Mild 1-3,fever,headache Albuterol/Ipratropium (Albuterol/Iprat 2.5/0.5mg 3 Ml Ampul.Neb) 3 ml INHALE RQ4H PRN PRN Reason: Shortness of Breath/Wheezing Atorvastatin Calcium (Atorvastatin Calcium 40 Mg Tablet) 40 mg PO DAILY@1700 [facility] Last Admin: 12/19/24 17:53 Dose: 40 mg Benzonatate (Benzonatate 100 Mg Capsule) 100 mg PO TID PRN PRN Reason: Cough Budesonide (Budesonide 0.5 Mg/2 Ml Ampul.Neb) 0.5 mg INHALE RBID [facility] Last Admin: 12/19/24 19:45 Dose: 0.5 mg Calcium Carbonate (Calcium Carbonate 750 Mg Tab.Chew) 750 mg PO Q4H PRN PRN Reason: Heartburn Ceftriaxone Sodium (Ceftriaxone Sodium 2 Gm Vial) 2 gm IVPUSH Q24H [facility] Last Admin: 12/19/24 17:54 Dose: 2 gm Digoxin (Digoxin 0.125 Mg Tablet) 0.125 mg PO SUMOTUTHFR [facility]; Protocol Last Admin: 12/18/24 10:43 Dose: 0.125 mg Doxycycline Monohydrate (Doxycycline Monohydrate 100 Mg Capsule) 100 mg PO Q12H [facility] Last Admin: 12/19/24 19:43 Dose: 100 mg Fenofibrate (Fenofibrate,Micronized 134 Mg Capsule) 134 mg PO DAILY@0700 [facility] Last Admin: 12/19/24 06:22 Dose: 134 mg Ferrous Sulfate (Ferrous Sulfate 324 Mg Tablet.Dr) 324 mg PO BID@0700,1700 [facility] Last Admin: 12/19/24 17:53 Dose: 324 mg Finasteride (Finasteride 5 Mg Tablet) 5 mg PO DAILY@1700 [facility] Last Admin: 12/19/24 17:53 Dose: 5 mg Folic Acid (Folic Acid 1 Mg Tablet) 1 mg PO DAILY [facility] Last Admin: 12/19/24 08:47 Dose: 1 mg Furosemide (Furosemide 40 Mg/4 Ml Vial) 40 mg IVPUSH BID@0900,1800 [facility]; Protocol Last Admin: 12/19/24 17:56 Dose: 40 mg Lorazepam (Lorazepam 0.5 Mg Tablet) 0.5 mg PO Q4H PRN PRN Reason: anxiety/restlessness Magnesium Hydroxide (Milk Of Magnesia 30 Ml Oral.Susp) 30 ml PO DAILY PRN PRN Reason: Constipation Melatonin (Melatonin 3 Mg Tablet) 6 mg PO BEDTIME PRN PRN Reason: Insomnia Metoprolol Succinate (Metoprolol Succinate Er 25 Mg Tab.Er.24h) 25 mg PO DAILY@1700 [facility]; Protocol Last Admin: 12/19/24 17:53 Dose: 25 mg Omeprazole (Omeprazole 20 Mg Capsule.Dr) 20 mg PO DAILY@0630 [facility] Last Admin: 12/19/24 06:22 Dose: 20 mg Ondansetron HCl (Ondansetron Hcl 4 Mg/2 Ml Vial) 4 mg IVPUSH Q8H PRN PRN Reason: Nausea and Vomiting Pharmacy Consult (Consult Rx Vancomycin Dosing) 1 each MISCELLANE DAILY PRN PRN Reason: Consult order Polyethylene Glycol (Polyethylene Glycol 3350 17 Gm Powd.Pack) 17 gm PO DAILY PRN PRN Reason: Constipation Potassium Chloride (Potassium Chloride Er 20 Meq Tab.Er.Prt) 20 meq PO DAILY [facility] Last Admin: 12/19/24 08:47 Dose: 20 meq Prednisone (Prednisone 20 Mg Tablet) 40 mg PO DAILY [facility] Last Admin: 12/19/24 08:48 Dose: 40 mg Rivaroxaban (Rivaroxaban 20 Mg Tablet) 20 mg PO DAILY@1699 [facility] Last Admin: 12/19/24 17:54 Dose: 20 mg Senna (Sennosides 8.6 Mg Tablet) 17.2 mg PO BEDTIME [facility] Last Admin: 12/19/24 19:46 Dose: Not Given Sodium Chloride (0.9 % Sodium Chloride Flush 3 Ml Syringe) 3 ml IVFLUSH QSHIFT [facility] Last Admin: 12/19/24 19:46 Dose: 3 ml Thiamine HCl (Thiamine Hcl 100 Mg Tablet) 100 mg PO DAILY [facility] Last Admin: 12/19/24 08:48 Dose: 100 mg Vitamin D (Cholecalciferol (Vitamin D3) 10 Mcg Tablet) 10 mcg PO DAILY@0700 [facility] Last Admin: 12/19/24 06:22 Dose: 10 mcg Home Medications ?Medication ?Instructions ?Recorded ?Confirmed ?Last Taken ?Type atorvastatin 40 mg tablet 40 mg PO DAILY@169903/19/22 12/17/24 12/16/24 History fenofibrate nanocrystallized 145 145 mg PO DAILY@0703/19/22 12/17/24 12/17/24 History mg tablet dutasteride 0.5 mg capsule 0.5 mg PO DAILY@1700 08/06/22 12/17/24 12/16/24 History (Avodart) cholecalciferol (vitamin D3) 10 10 mcg PO DAILY@0700 09/05/23 12/17/24 12/17/24 History mcg (400 unit) tablet ferrous sulfate 325 mg (65 mg 325 mg PO BID@0700,1700 09/05/23 12/17/24 12/17/24 History iron) tablet omeprazole 20 mg capsule,delayed 20 mg PO DAILY@0609/05/23 12/17/24 12/17/24 History release vit C 250 mg-vit E 90 mg-zinc 40 1 tab PO BID@1200,1700 09/05/23 12/17/24 12/17/24 History mg-copper 1 am-gbtpje-ylytwa capsule (PreserVision AREDS-2) digoxin 125 mcg (0.125 mg) tablet 125 mcg PO SUMOTUTHFR 09/29/24 12/17/24 12/17/24 History metoprolol succinate 25 mg 25 mg PO DAILY@169912/17/24 12/17/24 12/16/24 History tablet,extended release 24 hr midodrine 2.5 mg tablet 2.5 mg PO TID@0700,1200,1700 12/17/24 12/17/24 12/17/24 History potassium chloride 20 mEq 20 meq PO DAILY@0700 12/17/24 12/17/24 12/17/24 History tablet,extended release rivaroxaban 20 mg tablet (Xarelto) 20 mg PO DAILY@169912/17/24 12/17/24 12/16/24 History Physical Exam Vital Signs: Vital Signs: Last Vital Signs Temp 97.0 F 12/19/24 23:51 Pulse 87 12/19/24 23:51 Resp 16 12/19/24 23:51 BP 144/68 H 12/19/24 23:51 Pulse Ox 96 12/19/24 23:51 O2 Del Method Nasal Cannula 12/19/24 23:51 O2 Flow Rate 2 12/19/24 23:51 BMI result Body Mass Index 24.2 Const: General: cooperative HEENT: Head: Yes normal to inspection Face and sinus: Yes normal facial exam Mouth: Normal oral and palatal mucosa present Teeth and gingiva: dentition normal Eyes: General: appearance normal, both eyes and all related structures Pupils: Equal, round and reactive pupils present Resp: Other: on 2 litres,rhonchi bases Cardio: Rate: regular rate Rhythm: regular rhythm GI: Palpation (GI): Soft to palpation and nontender : General: Yes no CVA tenderness Back/Spine/Pelvis: Back: no CVA tenderness Skin: General skin exam: no rashes or lesions noted Neuro: General: moves all extremities Cranial nerves: Yes Equal, round and reactive pupils present Extrem: General: Yes normal to inspection Psych: Appearance: grossly normal Results Labs 12/18/24 06:53 12/19/24 06:31 Labs: BMP 12/19/24 06:31 Creatinine 0.86 Microbiology Microbiology Results: Microbiology 12/17/24 17:58 Blood - Venous Blood Culture - Preliminary No growth after 48 hours. 12/17/24 17:54 Blood - Venous Blood Culture - Final Coag negative Staphylococcus Assessment and Plan (1) Dyspnea: Status: Acute (2) Acute respiratory failure with hypoxia: Status: Acute (3) Decompensated heart failure: Status: Acute (4) Pulmonary emphysema: Status: Acute Plan Po Doxycycline cover MRSA nares,maybe just colonized,probably one week po. Check procalcitonin. Stop Ceftriaxone. No need Vancomycin,coagulase negative staph is contaminant.
[2024-12-20 02:06] LABS: Procalcitonin 0.09 ng/mL
[2024-12-20 04:00] VITALS: BP 134/66; PULSE 73; RESP 16; TEMP 36.4; O2SAT 99
[2024-12-20 06:00] VITALS: BMI 24.0
[2024-12-20] MEDS: Omeprazole 20 MG CAPSULE.DR PO (06:23)
[2024-12-20] MEDS: Fenofibrate,Micronized 134 MG CAPSULE PO (06:24)
[2024-12-20] MEDS: Ferrous Sulfate 324 MG TABLET.DR PO (06:24)
[2024-12-20] MEDS: Cholecalciferol (Vitamin D3) 10 MCG TABLET PO (06:24)
[2024-12-20 08:00] VITALS: BP 128/67; PULSE 66; RESP 18; TEMP 36.4; O2SAT 100
[2024-12-20 08:04] LABS: Creatinine Clr Calc Pharmacy 79.7; Estimated Glomerular Filt Rate > 60
[2024-12-20 08:05] LABS: Vancomycin Random 10.1 mcg/mL (15-20)
[2024-12-20] MEDS: Budesonide 0.5 MG/2 ML AMPUL.NEB INHALE (08:42)
--- NOTE | 2024-12-20 08:42 | PM.PNCARD ---
Subjective Subjective Date of Service: 12/20/24 Principal diagnosis: CHF, chronic AFib Interval history: Patient feeling a lot better. Less short of breath. Leg edema has improved. No significant cough. Review of Systems Constitutional: Reports no additional constitutional complaints Cardiovascular: Denies chest pain, Denies leg edema, Denies palpitations and Denies dyspnea Respiratory: Denies cough and Denies dyspnea Gastrointestinal: Reports no additional gastrointestinal complaints Endocrine: Denies palpitations Physical Exam Vital Signs: Last Vital Signs Temp 97.5 F 12/20/24 08:00 Pulse 66 12/20/24 08:00 Resp 18 12/20/24 08:00 BP 128/67 12/20/24 08:00 Pulse Ox 100 12/20/24 08:00 O2 Del Method Nasal Cannula 12/20/24 08:00 O2 Flow Rate 2 12/20/24 08:00 BMI result Body Mass Index 24.0 Const General: cooperative, alert, awake and in distress mild and respiratory Nutritional Appearance: average body habitus Orientation/consciousness: patient oriented x3 HEENT Head: Yes normocephalic and Yes atraumatic Teeth and gingiva: poor dentition Neck Neck: Yes trachea midline, Yes supple and Yes no JVD Resp Effort & Inspection: normal respiratory effort Auscultation: crackles, wheezes and diminished lung sounds Cardio Jugular venous distension: no JVD Rhythm: abnormal rhythm irregularly irregular Heart sounds: S1 normal heart sound present, S2 normal heart sound present, no click, no gallops and no murmurs GI Auscultation: normal bowel sounds Skin General skin exam: no rashes or lesions noted and ecchymosis Neuro General: patient oriented x3 and no focal motor deficits Extrem General: No clubbing, No cyanosis and Yes edema Objective Labs and Meds 12/18/24 06:53 12/20/24 07:07 Lab results: Laboratory Results - last 24 hr 12/20/24 12/20/24 01:04 07:07 Hold Purple Top SEE NOTE Creatinine 0.80 Estim Creat Clear Calc 79.7 Estimated GFR > 60 Procalcitonin 0.09 Random Vancomycin 10.1 L Progress Note: A&P Assessment and plan (1) Decompensated heart failure: Status: Acute Assessment and Plan: Decompensated congestive heart failure. Has significantly improved. Overall has good negative balance. Can switch to oral bumetanide his home dose. Blood pressure is stable. Probably can be discharged home. Heart failure management discussed with him at home. Start taking additional diuretics once he starts having weight gain and fluid overload. He shows understanding. Continue supportive care. Can be discharged home (2) Chronic atrial fibrillation: Status: Acute Assessment and Plan: Chronic atrial fibrillation, rate controlled. Continue metoprolol and digoxin. Continue full oral anticoagulation. Will follow as outpatient Time Spent With Patient Time: Total time managing care of this patient today ____ minutes. Progress Note: Quality Stroke Does the patient have a stroke diagnosis?: No Reason for No Anti-thrombotic by Day Two: N/A - Med Ordered Procedures Date of Service Date of Service: 12/20/24
[2024-12-20 08:45] VITALS: PULSE 66; RESP 18; O2SAT 99
[2024-12-20] MEDS: 0.9 % Sodium Chloride Flush 3 ML SYRINGE IVFLUSH (09:15)
[2024-12-20] MEDS: Doxycycline Monohydrate 100 MG CAPSULE PO (09:15)
[2024-12-20] MEDS: predniSONE 20 MG TABLET 40 MG PO (09:15)
[2024-12-20] MEDS: Potassium Chloride ER 20 MEQ TAB.ER.PRT PO (09:15)
[2024-12-20] MEDS: Thiamine HCL 100 MG TABLET PO (09:15)
[2024-12-20] MEDS: Folic Acid 1 MG TABLET PO (09:15)
[2024-12-20] MEDS: Digoxin 0.125 MG TABLET PO (09:17)
[2024-12-20 12:00] VITALS: BP 137/73; PULSE 88; RESP 18; TEMP 36.6; O2SAT 100
--- NOTE | 2024-12-20 13:01 | P.DS_ITS ---
DS: Providers Provider Date of Service: 12/20/24 Date of admission: 12/17/24 19:25 Date of discharge: 12/20/24 Primary care physician: Gary Alvarado MD Consults: 12/17/24 20:59 Consult to Pulmonology Routine Consulting Provider: [facility] [facility] Reason for consultation: Atypical PNA, RUL lesion (follows with Dr Mercado) Has provider been notified: No 12/17/24 21:26 Consult to Cardiology Routine Consulting Provider: [facility] [place] [facility] Reason for consultation: CHF exacerbation 12/19/24 08:15 Consult to Infectious Diseases Routine Consulting Provider: [facility] [place] [facility] Reason for consultation: bacteremia Has provider been notified: No Attending physician on discharge: Marietta Rios Discharging clinician: Marietta Rios DS: Diagnosis Discharge Diagnosis (1) Decompensated heart failure: Status: Acute (2) Chronic atrial fibrillation: Status: Acute DS: Summary Hospital Course Hospital Course: HPI:79 yo male with PMH Anemia followed by Oncology undergoes intermittent tranfusions, persistent AFib on Xarelto, HFrEF, GIB, RUL lung mass noncancerous per pt, peripheral vascular disease with history of femoral bypass grafting and cadaver vein placement BLEs, COPD/emphysema patient is not on home O2, smoking cessation 20 years prior, alcohol use daily, diverticulosis, cholelithiasis, prostatomegaly, right maxillary sinus cancer currently cured, CABG x2 2004, epistaxis and hematuria secondary to Xarelto, hyperlipidemia, GERD presents to ED with complaints of feeling like sh-- for the last 2 weeks. Patient reports increasing shortness of breath with lower extremity weakness to the point that patient did not feel strong enough to walk. Prior to this illness patient was driving and independent with everyday activities of life. Patient has had a productive cough with the sputum has been clear. Patient denies any fever, chills, chest pain during this interim. Patient did just recently see his vascular provider and underwent additional testing through [facility]. Patient does have chronic edema in both extremities considered dependent and not lymphedema. Patient also has history of heart failure with reduced EF and normally takes Bumex 2 mg twice daily. Patient does not use oxygen at home. Pt currently in AFIB rate controlled, on xaralto and pt denies any spontaneous bleeding. Pt was seen by oncologist 12/10/2024 and did not require transfusion. Hospital course:79 yo male with PMH Anemia followed by Oncology undergoes intermittent tranfusions, persistent AFib on Xarelto, HFrEF, GIB, RUL lung mass noncancerous per pt, peripheral vascular disease with history of femoral bypass grafting and cadaver vein placement BLEs, COPD/emphysema patient is not on home O2, smoking cessation 20 years prior, alcohol use daily, diverticulosis, cholelithiasis, prostatomegaly, right maxillary sinus cancer currently cured, CABG x2 2004, epistaxis and hematuria secondary to Xarelto, hyperlipidemia, GERD is being admitted for multifocal pneumonia and CHF exacerbation: Patient was started on nebs, steroids, antibiotics, IV diuretics: With the above supportive care patient seems to be improved, blood culture negative. CT scan reviewed with Pulmonary and ID: Less likely pneumonia, in addition patient was treated for COPD exacerbation mild: Improved with neb, steroids and antibiotics: Completed p.o. steroids, we will go home with p.o. doxycycline. Patient was evaluated for home oxygen-qualified for 4 L oxygen with exertion. Lung nodule RUL/ mediastinal adenopathy: As above lung CT scan reviewed with pulmonary: Recommended to follow-up outpatient withDr. Eng at [facility]. Generalized weakness seems to be improved patient is walking around fine, does not want PT. We will arrange VNA. plan: Patient was strongly advised to abstain from smoking, also discussed in detail that avoid smoking also because he will be on oxygen(risks discussed with him in detail-by hospitalist service as well as Respiratory.). Patient said he is agreeable with the abstain from smoking. Continue Bumex. Complete doxycycline 100 mg p.o. b.i.d. for 5 days, also qualified for home oxygen. CHF education given-if gains weight 2 lb or more in a week-will need outpatient Lasix dosing assessment with PCP. Consider Follow-up with cardiology outpatient Cardiology may arrange their own appointment. Follow up with PCP and Dr. Eng at [facility]. Above management discussed with the patient in detail length, he understand and in agreement with the plan, time spent 40 minute, all question answered, staff was present during conversation. Time Attestation Total time managing care of this patient today: 40 mintues. Discharge Coordination Time (in mins): 40 min Quality: Safe Use of Opioids Does Pt have an Active Cancer Diagnosis on the Problem List?: No Quality: Stroke Does the patient have a stroke diagnosis?: No Physical Exam Vital Signs: Vital Signs: Last Vital Signs Temp 97.9 F 12/20/24 12:00 Pulse 88 12/20/24 12:00 Resp 18 12/20/24 12:00 BP 137/73 12/20/24 12:00 Pulse Ox 100 12/20/24 12:00 O2 Del Method Nasal Cannula 12/20/24 12:00 O2 Flow Rate 2 12/20/24 12:00 BMI result Body Mass Index 24.0 Appearance: Alert.? Oriented X3. cvs: rrr, [id number]. res: air entry somewhat improving . abd: no rebound or guarding ,nt, bs present. ext pulses present , no cyanosis, 2+ edema. neuro: axo3 , nonfocal. DS: Data Data Completed and Pending Completed studies during hospitalization [Text1]: Procedures Excision of Stomach, Pylorus, Via Natural or Artificial Opening Endoscopic, Diagnostic (01/17/22) Inspection of Upper Intestinal Tract, Via Natural or Artificial Opening Endoscopic (09/05/23) Transfusion of Nonautologous Red Blood Cells into Peripheral Vein, Percutaneous Approach (01/17/22) Labs on day of discharge: Laboratory Results - last 24 hr 12/20/24 12/20/24 01:04 07:07 Hold Purple Top SEE NOTE Creatinine 0.80 Estim Creat Clear Calc 79.7 Estimated GFR > 60 Procalcitonin 0.09 Random Vancomycin 10.1 L Preliminary micro results at discharge 12/17/24 17:58 Blood Culture - Preliminary Blood - Venous No growth after 48 hours. Imaging Chest x-ray: My impression: Ct chest: 1. 2.5 cm lesion in the right upper lobe is nonspecific and may reflect scarring with architectural distortion. Lung neoplasm also considered by initial CT. Additional diagnostics may be informative as clinically indicated. 2. Small bilateral pleural effusions. 3. Pulmonary opacities are nonspecific and may reflect pneumonitis and/or multifocal pneumonia. 4. Edema superimposed on chronic lung disease also considered with cardiomegaly and emphysematous changes. Discharge Plan Discharge Anticipated Discharge Date/Time: 12/20/24 12:43 Patient Disposition: Home Health Service Discharge Diagnosis: chf Referrals: [facility] [Outside] - 1 Day ([facility]) Gary Alvarado MD [Primary Care Provider] - 1 Week Discharge Medications: New doxycycline monohydrate 100 mg Capsule 100 mg PO Q12H Qty: 10 0RF Continued bumetanide 2 mg tablet 2 mg PO BID@0700,1700 90 Days Qty: 180 3RF fenofibrate nanocrystallized 145 mg tablet 145 mg PO DAILY@0700 atorvastatin 40 mg tablet 40 mg PO DAILY@1700 midodrine 2.5 mg tablet 2.5 mg PO TID@0700,1200,1700 metoprolol succinate 25 mg tablet extended release 24 hr 25 mg PO DAILY@1700 Xarelto 20 mg tablet 20 mg PO DAILY@1700 potassium chloride 20 mEq tablet extended release 20 meq PO DAILY@0700 ferrous sulfate 325 mg (65 mg iron) tablet 325 mg PO BID@0700,1700 omeprazole 20 mg capsule,delayed release(DR/EC) 20 mg PO DAILY@0630 cholecalciferol (vitamin D3) 10 mcg (400 unit) Tablet 10 mcg PO DAILY@0700 PreserVision AREDS-2 250-90-40-1 mg Capsule 1 tab PO BID@1200,1700 dutasteride [Avodart] 0.5 mg capsule 0.5 mg PO DAILY@1700 digoxin 125 mcg (0.125 mg) tablet 125 mcg PO SUMOTUTHFR Rx Instructions: non on WED and SAT Discharge Orders: Discharge Order (Routine); Ordered 12/20/24 Ordered By: Marietta Rios Diet: Advance to usual diet Activity on Discharge: As tolerated Stand Alone Forms: Patient Portal Discharge page Print Language: Portuguese Care Plan Goals: as below Health Concerns: Continue Bumex. Complete doxycycline 100 mg p.o. b.i.d. for 5 days CHF education given-if gains weight 2 lb or more in a week-will need outpatient Lasix dosing assessment with PCP. Consider Follow-up with cardiology outpatient Cardiology may arrange their own appointment. Follow up with PCP and Dr. Eng at [facility]. home oxygen eval pending. Plan of Treatment: As above. Assessment: As above.
--- NOTE | 2024-12-20 13:05 | MHC.CM.PN ---
PT MEDICALLY CLEARED FOR HOME SELF CARE, PT'S FOR TRANSPORT
[2024-12-20 13:20] VITALS: PULSE 104; PULSE 111; PULSE 114; PULSE 90; O2SAT 79; O2SAT 86; O2SAT 89
--- NOTE | 2024-12-20 13:34 | MHC.CM.PN ---
PT MEDICALLY CLEARED FOR DC HOME W/NEW VNA FOR SN AND NEW HOME O2, PT'S FAMILY AT BEDSIDE AND WILL TRANSPORT.
--- NOTE | 2024-12-20 13:37 | P.F2F_ITS ---
Service Date Service Date: 12/20/24 Encounter Date of encounter: 12/20/24 Encounter: copd ,chf Reasons for Services Signs and symptoms assessed: sob or new symptoms Reason for residential: medication management, medication treatment and teach disease management MD Overseeing Care: Gary Alvarado Homebound: Leaving the home is medically contraindicated at this time without the asist of a device and/or another person due th the listed conditions above and below. Reason homebound: weakness related to hospital stay Homebound supporting statement: Patient is generalised weak post hospitlisation and need help with going to appointments and labs draws . Certification: Based on the above findings, I certify that this patient is confined to the home and needs intermittent residential care, physical therapy and/or speech therapy, or continues to need occupational therapy. The patient is under my care, and I have initiated the establishment of the plan of care. The patient will be followed by a physician who will periodically review the plan of care. Time Spent With Patient Time: Total time managing care of this patient today ____ minutes.
[2024-12-21 00:04] LABS: Strep Pneumo Ag urine Not Detected (Not Detected)
[2024-12-21 04:49] LABS: Legionella Ag Urine Not Detected (Not Detected)
== END 2024-12-20 14:00 | disposition home health service (06) | DRG 291 ==
LOC: HO.ED 18:08 → HO.EDOVER 20:06 → HO.IMC 12-18 14:27
PROVIDERS: Internal Medicine; Nurse Practitioner Family; Physician Assistant; Admitting Provider Student in an Organized Health Care Education/Training Program; Emergency Provider Emergency Medicine; PCP Internal Medicine; Visit Provider Internal Medicine
DX: I50.23 Acute on chronic systolic (congestive) heart failure (principal); J18.9 Pneumonia, unspecified organism; I48.19 Other persistent atrial fibrillation; J43.9 Emphysema, unspecified; I25.10 Atherosclerotic heart disease of native coronary artery without angina pectoris; C31.0 Malignant neoplasm of maxillary sinus; I73.9 Peripheral vascular disease, unspecified; R91.1 Solitary pulmonary nodule; D63.0 Anemia in neoplastic disease; E78.5 Hyperlipidemia, unspecified; Z20.822 Contact with and (suspected) exposure to COVID-19; Z95.1 Presence of aortocoronary bypass graft; Z87.891 Personal history of nicotine dependence; Z22.322 Carrier or suspected carrier of Methicillin resistant Staphylococcus aureus; Z79.01 Long term (current) use of anticoagulants; Z79.899 Other long term (current) drug therapy
CPT/HCPCS: 0241U; 36415; 71045; 71260; 80053; 80162; 80202; 81001; 82565; 83605; 83690; 83735; 83880; 84145; 84443; 84484; 85025; 87040; 87147; 87205; 87449; 87640; 87641; 87899; 93005; 93306; 94640; 99285; J0131; J0696; J1938; J3370; P9047; Q9957; Q9967

== ENCOUNTER → 2024-12-17 17:21 | Outpatient (BNV) | payer MEDICARE, SELFPAY | PROVIDERS: Admitting Provider Student in an Organized Health Care Education/Training Program; Emergency Provider Emergency Medicine; PCP Internal Medicine; Visit Provider Internal Medicine Cardiovascular Disease | DX: I45.10 Unspecified right bundle-branch block (principal) | CPT/HCPCS: 93010 ==

== ENCOUNTER → 2024-12-17 17:21 | Outpatient (BNV) | payer MEDICARE, SELFPAY | PROVIDERS: Emergency Provider Emergency Medicine; PCP Internal Medicine; Visit Provider Radiology Neuroradiology | DX: J43.8 Other emphysema (principal); R91.8 Other nonspecific abnormal finding of lung field | CPT/HCPCS: 71045; 71260 ==

== ENCOUNTER 2024-12-17 19:25 | Outpatient (BNV) | payer MEDICARE, SELFPAY | END 2024-12-18 07:00 | PROVIDERS: Admitting Provider Student in an Organized Health Care Education/Training Program; Emergency Provider Emergency Medicine; PCP Internal Medicine; Visit Provider Internal Medicine Cardiovascular Disease | DX: I34.81 Nonrheumatic mitral (valve) annulus calcification (principal); I51.7 Cardiomegaly; I36.1 Nonrheumatic tricuspid (valve) insufficiency | CPT/HCPCS: 93306 ==

== ENCOUNTER → 2024-12-17 19:25 | Outpatient (BNV) | payer MEDICARE, SELFPAY | PROVIDERS: Admitting Provider Student in an Organized Health Care Education/Training Program; Emergency Provider Emergency Medicine; PCP Internal Medicine; Visit Provider Internal Medicine Pulmonary Disease | DX: R93.89 Abnormal findings on diagnostic imaging of other specified body structures (principal); J43.9 Emphysema, unspecified; I50.9 Heart failure, unspecified; J96.01 Acute respiratory failure with hypoxia | CPT/HCPCS: 99222 ==

== ENCOUNTER → 2024-12-17 19:25 | Outpatient (BNV) | payer MEDICARE, SELFPAY | PROVIDERS: Admitting Provider Student in an Organized Health Care Education/Training Program; Emergency Provider Emergency Medicine; PCP Internal Medicine; Visit Provider Internal Medicine Cardiovascular Disease | DX: I50.9 Heart failure, unspecified (principal); I48.20 Chronic atrial fibrillation, unspecified | CPT/HCPCS: 99222; 99232; 99233 ==

== ENCOUNTER → 2024-12-17 19:25 | Outpatient (BNV) | payer MEDICARE, SELFPAY | PROVIDERS: Admitting Provider Student in an Organized Health Care Education/Training Program; Emergency Provider Emergency Medicine; PCP Internal Medicine; Visit Provider Nurse Practitioner Family | DX: J96.01 Acute respiratory failure with hypoxia (principal); I50.9 Heart failure, unspecified | CPT/HCPCS: 99223; 99231 ==

== ENCOUNTER → 2024-12-17 19:25 | Outpatient (BNV) | payer MEDICARE, SELFPAY | PROVIDERS: Admitting Provider Student in an Organized Health Care Education/Training Program; Emergency Provider Emergency Medicine; PCP Internal Medicine; Visit Provider Internal Medicine | DX: J43.9 Emphysema, unspecified (principal); I50.9 Heart failure, unspecified; J96.01 Acute respiratory failure with hypoxia | CPT/HCPCS: 99232 ==

== ENCOUNTER 2024-12-28 09:19 | Outpatient (AMB) | payer MEDICARE, SELFPAY ==
[2024-12-28 09:21] VITALS: BP 122/70; PULSE 91; TEMP 36.3; O2SAT 94; BMI 23.4
--- NOTE | 2024-12-28 09:21 | A.OFFPC_ITS ---
Vital Signs 12/28/24 09:21 Height 5 ft 11 in Weight 168 lb BMI 23.4 BP 122/70 Blood Pressure Location Lt brachial Position Sitting Pulse 91 Pulse Source Pulse Oximeter Temp 97.4 F Temp Source Axillary Pulse Oximetry (%) 94 Oxygen Delivery Method Room Air Intake Visit Reasons: [facility] Hospital F/U Laboratory Analyst Required: No Accompanied by: Self / Same As Patient Allergies hydromorphone (From Dilaudid) Adverse Reaction (Verified 12/28/24 09:21) Confusion Tobacco use date assessed: 12/28/24 Fall risk assessment: No Falls in past year Last assessed Fall Risk: 12/28/24 Dental Screening Dental Screen Date: 12/28/24 Did you have a dental visit in the last 12 months?: Yes Did you have a dental problem in the last 6 months where you did not have access to dental care?: No HPI HPI Comments History of Present Illness Details Patient presents to the office for a TCM visit. ? Date of admission: 12/17/2024 Date of discharge: 12/20/2024 This is a Follow-up from admission at [facility]: Hospital Course/Discharge Summary:79 yo male with PMH Anemia followed by Oncology undergoes intermittent tranfusions, persistent AFib on Xarelto, HFrEF, GIB, RUL lung mass noncancerous per pt, peripheral vascular disease with history of femoral bypass grafting and cadaver vein placement BLEs, COPD/emphysema patient is not on home O2, smoking cessation 20 years prior, alcohol use daily, diverticulosis, cholelithiasis, prostatomegaly, right maxillary sinus cancer currently cured, CABG x2 2004, epistaxis and hematuria secondary to Xarelto, hyperlipidemia, GERD is being admitted for multifocal pneumonia and CHF exacerbation Discharged to/Current Location: Home Lives with: Spouse Diagnosis: Congestive heart failure, atrial fibrillation. Procedures performed: New medications: Antibiotics Discontinued medications: None Change medications/dosing: Pending labs: None Pending diagnostic test: None Any Follow-up Labs required? No Any Follow-up Diagnostic test required? No How are you feeling? Tired, weak. Legs are swelling up again. Are you in any pain or discomfort? Shortness of breath. Do you have any questions about your condition or discharge instructions? No Were you able to get your medications filled? Yes Do you have any questions about your medications? No Any referrals required? Yes Were you able to schedule your follow-up appointment? No If home health was ordered, have they contact you? Any outpatient services, if so, are you scheduled? Are there any additional resources like transportation you might need during her recovery? ? - VNA? - [employer] DRAW[employer] CURATOR? - Meals on wheels? Not applicable Educational need/resources: What support system do you have? Spouse is an RN. ReplyForward [facility] Medical History Gastritis Gross hematuria Chronic atrial fibrillation (HFpEF) heart failure with preserved ejection fraction Low blood pressure Anemia Acute congestive heart failure Acute upper gastrointestinal bleeding Acute blood loss anemia COPD (chronic obstructive pulmonary disease) Hyperlipidemia Afib Nasal sinus tumor CAD (coronary artery disease) Surgical History Hx of CABG Family History Mother No problems noted. Father No problems noted. Social History Household Members: Spouse and Family Housing: House Do you presently have visiting nurse or other home services: Yes Alcohol intake: current Alcohol intake frequency: 0-2 drinks per day Alcohol type: beer Comment: Patient reports 3 beers in the afternoon and 1 mixed drink before bed, bon Patient Tobacco Use Status: Former Tobacco user Tobacco use type: Cigar e-Cigarette/Vaping Use: Former Use Advance Directives Date on File: 02/16/22 service: No Current occupational status: retired Cognitive needs: No Hearing needs: No Vision needs: Yes (rx glasses) Questionnaire PHQ-9 Over the last 2 weeks, how often have you been bothered by any of the following problems? 1. Little interest or pleasure in doing things: nearly every day 2. Feeling down, depressed, or hopeless: not at all 3. Trouble falling or staying asleep, or sleeping too much: not at all 4. Feeling tired or having little energy: several days 5. Poor appetite or overeating: several days (small appetite) 6. Feeling bad about yourself - or that you are a failure or have let yourself or your family down: not at all 7. Trouble concentrating on things, such as reading the newspaper or watching television: not at all 8. Moving or speaking so slowly that other people could have noticed. Or the opposite - being so fidgety or restless that you have been moving around a lot more than usual: not at all 9. Thoughts that you would be better off or of hurting yourself in some way: not at all Total score: 5 Depression Screening Interpretation: Negative Depression Screening Done: Yes Source: Developed by Drs. Homer Ash, Leela Torre, Kota Ann and colleagues, with an educational annika from [employer]. Thrive Questionnaire Date Thrive assessed: 12/28/24 I am a: Patient Within the past 12 months, did the food you bought not last and you didn't have the money to get more?: Never true Within the past 12 months, did you worry whether your food would run out before you got money to buy more?: Never true Do you have trouble paying for medicines?: No Do you have trouble getting transportation to medical appointments?: No Do you have trouble paying your heating and electricity bill?: No Do you have trouble taking care of your child, family member or friend?: No Do you have trouble with day-to-day activities such as bathing, preparing meals, shopping, managing finances, etc.?: No Are you currently unemployed and looking for a job?: No Are you interested in more education?: No Currently or been in a relationship where the following occur: No concerns reported THRIVE Score: 0 AUDIT C Alcohol Use Questionnaire (AUDIT-C) 1. How often do you have a drink containing alcohol?: Monthly or less 2. How many drinks containing alcohol do you have on a typical day when you are drinking?: 1 or 2 3. How often do you have six or more drinks on one occasion?: Less than monthly Total Score: 2 ASHLEY-7 AMB Questionnaire ASHLEY-7 Date ASHLEY - 7 assessed: 12/28/24 Feeling nervous, anxious, or on edge: 3 = Nearly every day Not being able to stop or control worryin = Not at all Worrying too much about different things: 0 = Not at all Trouble relaxin = Not at all Being so restless that it is hard to sit still: 0 = Not at all Becoming easily annoyed or irritable: 0 = Not at all Feeling afraid as if something awful might happen: 0 = Not at all Total ASHLEY-7 score (0-4 normal; 5-9 mild; 10-14 moderate; 15-21 severe): 3 Source: Developed by Drs. Homer Ash, Leela Torre, Kota Ann and colleagues, with an educational annika from [employer]. Physical exam (Primary Care) Tobacco/Smoking Status: Tobacco use Status Tobacco use date assessed 12/28/24 12/28/24 09:22 Patient Tobacco Use Status Former Tobacco user 12/28/24 09:22 Tobacco use type Cigar 12/28/24 09:22 e-Cigarette/Vaping Use Former Use 12/28/24 09:22 PHQ-9: PHQ-9 Score PHQ-9: Total score 0 12/28/24 09:22 Depression Screening Interpretation: Negative Thrive Assessment: Date of Thrive Assessment Date Thrive assessed 12/28/24 12/28/24 09:22 Currently or been in a relationship where the following occur: No concerns reported Advance Care Planning discussion: Exists, not on file Date of discussion: 12/28/24 Forms completed: Health Care Proxy and MOLST Const General: cooperative and healthy appearing Nutritional Appearance: well nourished Orientation/consciousness: patient oriented x3 Limitations: no limitations HENMT Head: Yes normal to inspection Eyes General: appearance normal, both eyes and all related structures Neck Neck: Yes normal visual inspection Chest Chest palpation & inspection: normal palpation of entire chest wall Resp Effort & Inspection: normal respiratory effort Cardio Palpation: normal PMI Rate: regular rate Rhythm: abnormal rhythm Heart sounds: S1 normal heart sound present and S2 normal heart sound present Peripheral pulses: Peripheral pulses 2+ throughout Neuro General: patient oriented x3 Extrem Other: 3 ++ pitting edema bilaterally Coding Level of Care Code TCM Mod MDM <= 14 Days Diagnoses Infiltrate of upper lobe of right lung present on imaging study R91.8 Decompensated heart failure I50.9 Additional Codes Vital Signs *Quality* - Advance Care Planning discussion: Exists, not on file ([id number]) Assessment & Plan Assessment & Plan (1) Infiltrate of upper lobe of right lung present on imaging study: Code(s): R91.8 - Other nonspecific abnormal finding of lung field Plan: Pulmonary appt has been scheduled (2) Decompensated heart failure: Code(s): I50.9 - Heart failure, unspecified Category: Medical Plan: Patient has significant pitting edema. Most likely decompensated CHF with nutritional def, Metaxolone added to the Bumex regimen. Advised to keep the upcoming appt with Dr Mccoy. Orders: Referrals Pulmonology Referral R91.8 - Other nonspecific abnormal finding of lung field
--- OUTSIDE RECORDS SUMMARY | 2024-12-28 10:07 | XMS_ITS | Patient Health Record ---
Author Organization [facility] Address [address] [place] [address] Care Team Providers Care Service Desk Lead Name Role Phone Darek Ronquillo MD Primary [...] Problem Status W/U Status Risk Notes Problem [id number] Heme positive stool (R19.5) Active confirmed Problem Gastritis (0890516) Gastritis (K29.70) Active confirmed Problem [id number] Anemia, unspecified type (D64.9) Active confirmed Vital Signs Temperature 97.5 degrees Fahrenheit 08/10/2024 Blood pressure diastolic 00 mm Hg 08/10/2024 Height 5 ft 11 in in 08/10/2024 Blood pressure systolic 000 mm Hg 08/10/2024 Weight 180 lbs 08/10/2024 BMI 25.10 kg/m2 08/10/2024 Procedures Procedure Date Ordered Date Performed Result Body Sit e VIDEO CAPSULE ENDOSCOPY 10/06/2024 N/A Encounters Encounter Location Date Provider Diagnosis [facility] [address] [place] [phone] 08/10/2024 Soren Boothe Jr Anemia, unspecified type D64.9 [facility] [address] [place] [phone] 08/04/2024 Soren Boothe Jr [facility] [address] [place] [phone] 10/06/2024 Soren Boothe Jr Anemia, unspecified type D64.9 and Heme positive stool R19.5 [facility] [address] [place] [phone] 11/05/2024 Soren Boothe Jr Assessments Encounter Date Diagnosis [...] will continue to followup with hematology oncology. 10/06/2024 Heme positive stool (ICD-10 - R19.5) 10/06/2024 Anemia, unspecified type (ICD-10 - D64.9) Plan Of Treatment Pending Test Test Name Order Date VIDEO CAPSULE ENDOSCOPY 10/06/2024 Future Test Test Name Order Date VIDEO CAPSULE ENDOSCOPY 11/01/2023 Next Appt Details Provider Name:Sorenbettina wadsworth Jr, 01/25/2025 01:35:00 PM, [address], [address], [place], [address], Insurance Providers Payer Name Payer Address Payer Phone Subscriber Number Group Number Insured Name Patient Relationship to Insured Coverage Start Date Coverage End Date [facility] [address] [place] [phone] [id number] STEFFEN ANTHONY Self - patient is the insured Medical (General) History Medical History History ICD Code Hypotension Coronary artery disease with heart failu re/preserved ejection fraction Atrial fibrillation Anemia Right maxillary sinus tumor, surgery at [facility] General Surgical History Surgery Date(Month/Year) Coronary artery bypass grafting
== END 2024-12-28 09:51 | disposition home or self-care (01) ==
LOC: HO.HMCHD 09:19
PROVIDERS: PCP Internal Medicine; Visit Provider Internal Medicine
DX: R91.8 Other nonspecific abnormal finding of lung field (principal); I50.9 Heart failure, unspecified; Z00.00 Encounter for general adult medical examination without abnormal findings

== ENCOUNTER → 2024-12-28 09:19 | Outpatient (BNVA) | payer MEDICARE, SELFPAY | PROVIDERS: PCP Internal Medicine; Visit Provider Internal Medicine | DX: I48.19 Other persistent atrial fibrillation (principal); I73.9 Peripheral vascular disease, unspecified; J44.9 Chronic obstructive pulmonary disease, unspecified; K57.90 Diverticulosis of intestine, part unspecified, without perforation or abscess without bleeding; K21.9 Gastro-esophageal reflux disease without esophagitis; R19.8 Other specified symptoms and signs involving the digestive system and abdomen; I50.9 Heart failure, unspecified; Z79.01 Long term (current) use of anticoagulants; Z87.891 Personal history of nicotine dependence | CPT/HCPCS: 96127; 99495 ==

== ENCOUNTER 2024-12-31 14:23 | Outpatient (AMB) | payer MEDICARE, SELFPAY ==
--- OUTSIDE RECORDS SUMMARY | 2024-12-29 23:59 | XMS_ITS | Continuity of Care Document ---
Author Organization [facility] Address [address] [place] [id number]- Care Team Providers Care Ornament Stapler Name Role Phone Christiano REHMAN, Gary Rendon Primary Care Physician [id number] Date(s): 12/22/24 - 12/29/24 [facility] [address] [place] [address], [place] [address] Attending Physician: Dayna Ely NP Admitting Physician: Dayna Ely NP Referring Physician: Darek Ronquillo MD Encounter Type: Office Visit Allergies, Adverse Reactions, Alerts Substance Criticality Severity Reaction Reaction Severity Status Dilaudid severe confusion Act annamarie traMADol severe confusion Act annamarie Immunizations Given and Recorded Vaccine Date Status Refusal Reason influenza virus vaccine, inactivated 04/19/21 Ephraim rded influenza virus vaccine, inactivated 05/12/19 Ephraim rded SARS-CoV-2 (COVID-19) mRNA BNT-162b2 vac 04/11/21 Recorded SARS-CoV-2 (COVID-19) mRNA BNT-162b2 vac 09/03/20 Recorded SARS-CoV-2 (COVID-19) mRNA BNT-162b2 vac 08/13/20 Recorded Medications acetaminophen 325 mg oral tablet 650 mg, By Mouth, Every 6 hours, PRN, Temperature Greater than 100.5, Refills 0, Maintenance, Pain , Mild, 05/14/22 10:59:00 AM EST, Partial fill upon patient request if the prescription is for a schedule II opioid drug. Start Date: 05/14/22 Status: Ordered Repeat number: 1 Avodart 0.5 mg oral capsule 1 capsule = 0.5 mg, By Mouth, Daily, 0 Refills, Maintenance, 07/28/19 1:04:00 PM EST Start Date: 07/28/19 Status: Ordered Repeat number: 1 bumetanide 2 mg oral tablet 1 tablet = 2 mg, By Mouth, 2 times a day, 0 Refills, Maintenance, 04/03/22 5:02:00 PM EDT, Partial fill upon patient request if the prescription is for a schedule II opioid drug. Start Date: 04/03/22 Status: Ordered Repeat number: 1 Colace sodium 100 mg oral capsule 100 mg, 1, capsule, By Mouth, Daily, PRN, PRN, # 20 capsule, Refills 0, Maintenance, for constipation, 07/03/22 11:11:00 AM EST, Partial fill upon patient request if the prescription is for a schedule II opioid drug. Start Date: 07/03/22 Status: Ordered Quantity: 20.0 Unit: capsule Repeat number: 1 digoxin 0.125 mg oral tablet 125 mcg, 1, tablet, By Mouth, Daily, hold digoxin Wednesdays and Saturdays, Refills 0, Maintenance,08/15/22 9:11:00 PM EST, Partial fill upon patient request if the prescription is for a schedule II opioid drug. Start Date: 08/15/22 Status: Ordered Repeat number: 1 fenofibrate 145 mg oral tablet 1 tablet = 145 mg, By Mouth, Daily, 0 Refills, Maintenance, 04/03/22 5:00:00 PM EDT, Partial fill upon patient request if the prescription is for a schedule II opioid drug. Start Date: 04/03/22 Status: Ordered Repeat number: 1 ferrous sulfate 325 mg oral enteric coated tablet 325 mg, By Mouth, Daily, Refills 0, Maintenance, 05/14/22 10:57:00 AM EST, Partial fill upon patientrequest if the prescription is for a schedule II opioid drug. Start Date: 05/14/22 Status: Ordered Repeat number: 1 Lipitor 40 mg oral tablet 1 tablet = 40 mg, By Mouth, Daily at bedtime, 0 Refills, Maintenance, 05/14/22 10:57:00 AM EST, Tablet, Partial fill upon patient request if the prescription is for a schedule II opioid drug. Start Date: 05/14/22 Status: Ordered Repeat number: 1 metoprolol 25 mg oral tablet, extended release 25 mg, 1, tablet, By Mouth, Daily at supper, # 30 tablet, Refills 0, Maintenance, 07/03/22 11:10:00AM EST, Partial fill upon patient request if the prescription is for a schedule II opioid drug. Start Date: 07/03/22 Status: Ordered Quantity: 30.0 Unit: tablet Repeat number: 1 Midodrine = 2.5 mg, By Mouth, 3 times a day, 0 Refills, Maintenance, 06/30/22 7:06:00 AM EST, Partial fill upon patient request if the prescription is for a schedule II opioid drug. Start Date: 06/30/22 Status: Ordered Repeat number: 1 Omeprazole = 20 mg, By Mouth, Daily, 0 Refills, Maintenance, 04/03/22 5:01:00 PM EDT, Partial fill upon patientrequest if the prescription is for a schedule II opioid drug. Start Date: 04/03/22 Status: Ordered Repeat number: 1 please fit for left HEEL OFFLOAD shoe please fit for left HEEL OFFLOAD shoe, See Instructions, # 1 each, Refills 0, Tot. Refills 0, Maintenance, left heel ulcer gangrene want to OFLOAD heel, 06/06/22 2:06:00 PM EST, Supply Start Date: 06/06/22 Status: Ordered Quantity: 1.0 Unit: each Repeat number: 1 Potassium Chloride = 20 mEq, By Mouth, Daily, 0 Refills, Maintenance, 06/30/22 7:12:00 AM EST, Partial fill upon patient request if the prescription is for a schedule II opioid drug. Start Date: 06/30/22 Status: Ordered Repeat number: 1 rivaroxaban 20 mg oral tablet = 20 mg, By Mouth, Daily at supper, 0 Refills, Maintenance, 05/14/22 10:58:00 AM EST, Tablet, Partial fill upon patient request if the prescription is for a schedule II opioid drug. Start Date: 05/14/22 Status: Ordered Repeat number: 1 traZODone 50 mg oral tablet 50 mg, 1, tablet, By Mouth, Daily at bedtime, # 90 tablet, Refills 0, Tot. Refills 0, Maintenance, 08/12/22 11:06:00 PM EST, Route to Pharmacy Electronically, [facility] Partial fill upon patient request if the prescription is for a schedule II opioid drug., 180, cm, 08/07/22 15:20:00 EST, Height, 86, kg, 07/04/22 22:46:00 EST, Dry Weight Start Date: 08/12/22 Status: Ordered Quantity: 90.0 Unit: tablet Repeat number: 1 Vitamin D3 5000 iu, By Mouth, Daily, 0 Refills, Maintenance, 07/28/19 1:04:00 PM EST Start Date: 07/28/19 Status: Ordered Repeat number: 1 Problem List Condition Confirmation Course Effective Dates Status H ealth Status Informant Atrial fibrillation Confirmed 04/15/08 Active BPH (benign prostatic hyperplasia) Confirmed Active COPD (chronic obstructive pulmonary disease) Confirmed Active Chronic obstructive lung disease Confirmed 11/08/20 Active CHF (congestive heart failure) Confirmed Active CAD (coronary artery disease) Confirmed Active Ex-smoker Confirmed Active GERD (gastroesophageal reflux disease) Confirmed Active History of coronary artery bypass grafting Confirmed 11/08/20 Active Hyperlipidemia Confirmed 11/08/20 Active Longstanding persistent atrial fibrillation Confirmed Active Lung field abnormal Confirmed Active Mixed hyperlipidemia Confirmed Active PVD (peripheral vascular disease) Confirmed Active Peripheral vascular disease Confirmed 11/08/20 Active Pressure injury of coccygeal region, stage 2 Confirmed Active Unstageable pressure ulcer of left heel Confirmed Active Social History Social History Type Response Smoking Status Cigars or pipes but not daily within last 30 days entered on: 04/16/24 Sex Sex Representation Male (finding) Note * Agustina Tarango: PERFORM Event Display: Patient Education/Instruction Authored Date: [place] [address] Name: STEFFEN ANTHONY : 1945?? Visit: 12/22/2024 06:43?? Ambulatory Visit Instructions ?? Your Care Team Primary Care Provider Christiano REHMAN, Gary Rendon? This Visit Provider Dayna Ely NP Medications The list below reflects the information in our records and provided by you today along with any changes made during this visit. Please continue your medications until treatment is completed or stopped by your provider. If this is different from the information you have or there are other questions,please contact the prescribing provider. What How Much When Instructions Unchanged Acetaminophen (acetaminophen 325 mg oral tablet) 650 Milligram Oral Every 6 hours as needed for Pain , Mild Temperature Greater than 100.5 ?? Unchanged Atorvastatin (Lipitor 40 mg oral tablet) 1 tab(s) Oral Daily at Bedtime Unchanged Bumetanide (bumetanide 2 mg oral tablet) 1 tab(s) Oral Twice a day Unchanged Cholecalciferol (Vitamin D3) 5000 iu Oral Daily Unchanged Digoxin (digoxin 0.125 mg oral tablet) 1 tab(s) Oral Daily hold digoxin Wednesdays and Saturdays ?? Unchanged Docusate (Colace sodium 100 mg oral capsule) 1 capsule Oral Daily as needed for for constipation PRN ?? Unchanged Durable Medical Equipment (please fit for left HEEL OFFLOAD shoe) See instructions left heel ulcer gangrene want to OFLOAD heel ?? Unchanged Dutasteride (Avodart 0.5 mg oral capsule) 1 capsule Oral Daily Unchanged Fenofibrate (fenofibrate 145 mg oral tablet) 1 tab(s) Oral Daily Unchanged Ferrous Sulfate (ferrous sulfate 325 mg oral enteric coated tablet) 325 Milligram Oral Daily Unchanged Metoprolol (metoprolol 25 mg oral tablet, extended release) 1 tab(s) Oral Daily at supper Unchanged Midodrine 2.5 Milligram Oral 3 times a day Unchanged Omeprazole 20 Milligram Oral Daily Unchanged Potassium Chloride 20 Milliequivalent Oral Daily Unchanged rivaroxaban (rivaroxaban 20 mg oral tablet) 20 Milligram Oral Daily at supper Unchanged Trazodone (traZODone 50 mg oral tablet) 1 tab(s) Oral Daily at Bedtime Medications and Immunizations Administered Medications Given During Visit No medications given during this visit.?? Allergies (NKA means No Known Allergies) Dilaudid??(severe confusion) traMADol??(severe confusion) Common Emergency Awareness Tips IS IT A STROKE? Act FAST and Check for these signs: FACE Does the face look uneven? ARM Does one arm drift down? SPEECH Does their speech sound strange? TIME Call at any sign of stroke ?? Heart Attack Signs Chest discomfort: Most heart attacks involve discomfort in the center of the chest and lasts more than a few minutes, or goes away and comes back. It can feel like uncomfortable pressure, squeezing, fullness or pain. Discomfort in upper body: Symptoms can include pain or discomfort in one or both arms, back, neck, jaw or stomach. Shortness of breath: With or without discomfort. Other signs: Breaking out in a cold sweat, nausea, or lightheaded. Remember, MINUTES DO MATTER. If you experience any of these heart attack warning signs, call to get immediate medical attention! ?? Smoking can increase your chances of developing chronic health problems and can cause harmful effects to other family members in your house. If you smoke, you are strongly encouraged to quit. Please call [facility] at [phone] or [phone] ([phone]) or log in to [email or web address] for referrals to smoking cessation programs. ?? The National Suicide Prevention Hotline is available 28/01 if you or someone you know needs to find a reason to keep living. By calling 9-728-147-TicketBase (1478) you'll be connected to a skilled, trained counselor at a crisis center in your area. [facility] You can view and manage your care through the patient portal or by using a health care efrain of your choosing. [employer] is a website that allows you to securely view your medical information including your hospital discharge summary, office visit summaries, medications and follow-up visits. You can also request appointments, renew medications, and request access to your medical information using a health care efrain of your choosing, or just ask a question. You can enroll at [email or web address] or register during your next office visit. [facility], in keeping with [facility] guidance, no longer requires face masks for staff, patientsor visitors in most situations. Similiar to time spent indoors at other locations, there is the chance that you were exposed to repiratory viruses during your time with us (such as flu or COVID-19). If you develop symptoms concerning for a viral respiratory infection, please seek testing (and treatment if indicated) from your medical provider or home test kit. ?? Disclaimer: The information provided is of a general nature and is intended to be used in conjunction with the recommendations and advice of your health care practitioner. Every effort has been made to ensure that the information provided is accurate and complete at the time it is provided to you however, as your needs change, or, as new information becomes available, different or additional instructions may be required. ?? If you have questions, please consult with your primary care provider or pharmacist, as appropriate. This information is not intended to serve as substitution for assessment and evaluation by a qualified health care provider. If you do not have a primary care provider, you may find a [facility] provider by calling [facility] at [phone]. Patient Care team information Care Team Personnel Name: Neri ISSAC Rosa Mckayla Position: Reference Physician Member Role: Primary Care Nurse Address: [address] [place] [id number]- Telecom: Name: Rukhsana Castillo RN Position: [facility] AMB Nurse Member Role: Primary Care Nurse Name: Fidelia Nettles LPN Position: S RN Member Role: Primary Care Nurse Name: Nilesh Ball RN Position: S RN Member Role: Primary Care Nurse Name: Jackie Ordonez RN Position: S RN Member Role: Primary Care Nurse Name: Ann Fields Position: S RN Member Role: Primary Care Nurse Name: Tanya Adkins RN Position: S RN Member Role: Primary Care Nurse Name: Cheyenne Reynoso RN Position: S RN Member Role: Primary Care Nurse Name: Mart Kirkland RN Position: [facility] ED RN W/OE and Tasks Member Role: Primary Care Nurse Name: Lanny Garg LPN Position: S RN Member Role: Primary Care Nurse Name: Saritha Ojeda RN Position: S RN Member Role: Primary Care Nurse Name: Candi Gonzalez RN Position: [facility] ED RN W/OE and Tasks Member Role: Primary Care Nurse Name: Fred Eric RN Position: S RN Member Role: Primary Care Nurse Name: Gary Alvarado MD Position: Reference Physician Member Role: PCP Address: [address] [place] [address]- [place] Telecom: Name: Danni Petty RN Position: S RN Member Role: Primary Care Nurse Name: Estelita Gomez RN, I Position: S RN Member Role: Primary Care Nurse Care Team Related Persons Name: JUSTICE ANTHONY Name: CHAD RITCHIE Insurance Providers Guarantor name: STEFFEN BARRETTOurCrowd Plan Information #: 1 Payer: [employer] ADV HMO Payer Identifier: NA Member Number: [id number] Group Number: [id number] Subscriber Identifier: [id number] Relationship to Subscriber: self Coverage Type: Medicare HMO Coverage Verification Date: NA Telecom: [place] Address: NA
--- NOTE | 2024-12-31 14:39 | MHC.OFFVIS ---
Vital Signs 12/31/24 14:44 Height 5 ft 11 in Weight 159 lb 2.78 oz BMI 22.2 BP 126/64 Blood Pressure Location Lt brachial Position Sitting Pulse 83 Pulse Source Monitor Intake Visit Reasons: f/up ED per ns Intake Note: f/up ed per ns Medical Records Technician Required: No Accompanied by: Spouse Allergies hydromorphone (From Dilaudid) Adverse Reaction (Verified 12/28/24 09:21) Confusion Medication List - Last Reconciled 12/31/24 by Sj Key NP atorvastatin 40 mg PO DAILY@1700 bumetanide 2 mg PO BID@0700,1700 90 days cholecalciferol (vitamin D3) 10 mcg PO DAILY@0700 digoxin 125 mcg PO SUMOTUTHFR dutasteride (Avodart) 0.5 mg PO DAILY@1700 fenofibrate nanocrystallized 145 mg PO DAILY@0700 ferrous sulfate 325 mg PO BID@0700,1700 metolazone 2.5 mg PO DAILY metoprolol succinate ER 25 mg PO DAILY@1700 midodrine 2.5 mg PO TID@0700,1200,1700 omeprazole 20 mg PO DAILY@0630 potassium chloride ER 20 mEq PO DAILY@0700 rivaroxaban (Xarelto) 20 mg PO DAILY@1700 vit C,T-Fc-pdvhr-lutein-zeaxan 250-90-40-1 mg (PreserVision AREDS-2) 1 tab PO BID@1200,1700 HPI Comments Details: This is a 79-year-old male patient coming in for a hospital discharge follow-up visit, accompanied by his . Patient with a history of heart failure with preserved ejection fraction, coronary artery disease, femoral bypass graft and can never went placement BLE, COPD not on home O2, CABG x2 2004, and chronic atrial fibrillation. Patient was recently hospitalized for acute on chronic heart failure and COPD exacerbation and was treated with nebs, and diuretics. Within 2 days of discharge, patient's states that he gained all his weight back and his legs for significantly swollen where patient had 2 taking with the PCP's office and he was started on metolazone there. Today, patient states that he has been feeling well overall and denies any cardiac symptoms of exertional chest pain, shortness of breath, palpitations, dizziness, orthopnea, PND, presyncope, or syncope. Patient does have some swelling in his legs however the states that this is significantly improved since metolazone. Patient has been tolerating all his medications well and is affirming his compliance. The states that patient has lost almost 10 lb which was all extra water weight for the patient. [facility] Medical History Gastritis Gross hematuria Chronic atrial fibrillation (HFpEF) heart failure with preserved ejection fraction Low blood pressure Anemia Acute congestive heart failure Acute upper gastrointestinal bleeding Acute blood loss anemia COPD (chronic obstructive pulmonary disease) Hyperlipidemia Afib Nasal sinus tumor CAD (coronary artery disease) Surgical History Hx of CABG Family History Mother No problems noted. Father No problems noted. Social History Household Members: Spouse and Family Housing: House Do you presently have visiting nurse or other home services: Yes Alcohol intake: current Alcohol intake frequency: 0-2 drinks per day Alcohol type: beer Comment: Patient reports 3 beers in the afternoon and 1 mixed drink before bed, bon Patient Tobacco Use Status: Former Tobacco user Tobacco use type: Cigar e-Cigarette/Vaping Use: Former Use Advance Directives Date on File: 02/16/22 service: No Current occupational status: retired Cognitive needs: No Hearing needs: No Vision needs: Yes (rx glasses) Review of Systems Const Denies chills, Denies fatigue, Denies fever(s), Denies frequent falls, Denies weakness, Denies weight gain and Denies weight loss ENT Denies dizziness Card Denies chest pain, Reports leg edema, Denies lightheadedness, Denies palpitations, Denies dyspnea and Denies dyspnea on exertion Resp Denies cough, Denies dyspnea and Denies dyspnea on exertion GI Denies hematochezia Musc Denies abnormal gait, Denies muscle weakness, Denies numbness, Denies radiating pain into limb and Denies tingling Neuro Denies abnormal gait, Denies dizziness, Denies frequent falls, Denies numbness, Denies tingling and Denies weakness Endo Denies fatigue and Denies palpitations Physical Exam Vital Signs: Last Vital Signs Pulse 83 06/26/25 14:44 BP 126/64 12/31/24 14:44 BMI result Body Mass Index 22.2 Const General: cooperative, healthy appearing, comfortable and no acute distress Orientation/consciousness: patient oriented x3 HEENT Head: Yes normal to inspection Neck Neck: Yes normal visual inspection, Yes trachea midline and Yes supple Chest Chest palpation & inspection: normal inspection of the chest Resp Effort & Inspection: normal respiratory effort Auscultation: clear to auscultation bilaterally, no crackles, no rales, no rhonchi and no wheezes Cardio Jugular venous distension: no JVD Palpation: normal PMI Rate: regular rate Rhythm: regular rhythm Heart sounds: S1 normal heart sound present, S2 normal heart sound present, no click, no gallops, no murmurs and no rubs Peripheral pulses: Peripheral pulses 2+ throughout GI Inspection: Yes normal to inspection Palpation (GI): Soft to palpation Auscultation: normal bowel sounds Skin General skin exam: no rashes or lesions noted Neuro General: patient oriented x3 Extrem Other: Bilateral lower extremity edema- trace to the right and 2+ pitting to the left General: Yes normal to inspection and No calf tenderness Psych Appearance: grossly normal Mental Status: mental status grossly normal Speech and movement: Normal speech and movement present Office Procedures EKG Details: EKG today showed AFib with a PVCs or aberrant conduction, rate 83 beats per minute, right bundle branch block with septal infarct, nonspecific ST-T wave. [id number], Complete Assessment & Plan Assessment & Plan (1) (HFpEF) heart failure with preserved ejection fraction: Code(s): I50.30 - Unspecified diastolic (congestive) heart failure Category: Medical Plan: Recently in the hospital admitted for progressive shortness of breath and fluid overload, had elevated BNP at 730 and was treated with IV diuretics and neb treatments. 12/18/2024-echo study showed decreased LV systolic function with an ejection fraction between 40-45%, severe biatrial enlargement, severe mitral annular calcification with lqhofque-ta-mviedp elevation in the right ventricular systolic pressure with elevated right atrial pressures. Today on exam, patient is left lower leg is still swollen at 2+ pitting edema whereas right lower leg only has some trace edema. Per the , patient has leg swelling was previously twice the size of the left leg on both legs. Continue Bumex. We will continue metolazone for the time period. Continue potassium chloride. We will check his labs before his next visit in 3-4 weeks. Advised low-salt diet, daily weight monitoring, elevating legs at rest, and fluid restriction at 1.5-2 L daily. (2) Afib: Comment: on xarelto Code(s): I48.91 - Unspecified atrial fibrillation Category: Medical Plan: History of chronic AFib on rate control with metoprolol therapy. Patient on Xarelto for full anticoagulation therapy. No reports of falls or signs of bleeding. Continue both medications. (3) CAD (coronary artery disease): Code(s): I25.10 - Atherosclerotic heart disease of [place] coronary artery without angina pectoris Category: Medical Plan: History of CABG in 2004. Currently without any anginal symptoms. Continue current regimen. Continue statin therapy with an LDL goal less than 70. (4) Hospital discharge follow-up: Code(s): Z09 - Encounter for follow-up examination after completed treatment for conditions other than malignant neoplasm Plan: As above. Advised heart healthy diet, exercise as tolerated, med compliance, and management of vascular risk factors. Follow-up in 3-4 weeks in the office. In the interim, patient will call the office with any concerns or change in symptoms. This note was generated using voice recognition software. While every effort has been made to ensure accuracy and proper risk officer, there may be occasional errors that could affect the content or meaning of the described symptoms. Orders: Orders Basic Metabolic Panel Today I50.30 - Unspecified diastolic (congestive) heart failure AMB EKG-In Office Today I48.91 - Unspecified atrial fibrillation Coding Level of Care Code Est Pt Level 4 (36499) Complex EM visit Add On G2211 Diagnoses (HFpEF) heart failure with preserved ejection fraction I50.30 Afib I48.91 CAD (coronary artery disease) I25.10 Hospital discharge follow-up Z09 CPT Codes EKG - CPT: 00644-[id number], Complete ([id number]) Time Spent (min) 33 Comment Time spent in reviewing the chart, test results, assessment, counseling and documentation.
[2024-12-31 14:44] VITALS: BP 126/64; PULSE 83; BMI 22.2
== END 2024-12-31 15:22 | disposition home or self-care (01) ==
LOC: HO.HCS 14:23
PROVIDERS: PCP Internal Medicine
DX: I50.30 Unspecified diastolic (congestive) heart failure (principal); I48.91 Unspecified atrial fibrillation; I25.10 Atherosclerotic heart disease of native coronary artery without angina pectoris; Z09 Encounter for follow-up examination after completed treatment for conditions other than malignant neoplasm
CPT/HCPCS: 93010; 99214; G2211

== ENCOUNTER → 2024-12-31 14:23 | Outpatient (BNVA) | payer MEDICARE, SELFPAY | PROVIDERS: PCP Internal Medicine | DX: Z09 Encounter for follow-up examination after completed treatment for conditions other than malignant neoplasm (principal); I25.10 Atherosclerotic heart disease of native coronary artery without angina pectoris; I50.30 Unspecified diastolic (congestive) heart failure; I48.91 Unspecified atrial fibrillation | CPT/HCPCS: 93005; 99212 ==

== ENCOUNTER 2025-01-06 12:37 | Inpatient (IN) | payer MEDICARE, SELFPAY ==
[2025-01-06 12:40] VITALS: BP 100/50; PULSE 63; RESP 18; TEMP 36.6; O2SAT 96; BMI 22.2
--- NOTE | 2025-01-06 12:40 | ED.GENADULT ---
HPI - General Adult General Chief complaint: General Medical Stated complaint: new meds 1week ago, dehydrated, hard to walk now Time Seen by Provider: 01/06/25 13:24 Source: patient and family (patient's ) Mode of arrival: ambulatory Limitations: no limitations History of Present Illness ED Provider: Jeri Frias PA-C HPI narrative: Patient is a 79 year old male with PMH of chronic atrial fibrillation, CAD, HFpEF, emphysema, and anemia, presenting to ER on 01/06 with chief complaint of increasing confusion and weakness since yesterday 01/05. He is accompanied by his who is providing patient's history. He started a new diuretic from cardiology 12/28 (Metolazone 2.5mg qd) along with his ongoing bumetanide BID, and noted to have 8 lb weight loss on 12/31 with new diuretic. His noticed he was acting confused yesterday; she reports he was searching for items in the house but unable to name what he was searching for, staring off into space, not responding to questions normally. This morning she noted he seemed off-balance, I could hardly get him up, with ongoing confusion from yesterday, prompting her to bring him to the ER. She states this is completely different from his baseline, usually he ambulates independently and is not forgetful. Denies history of dementia. Denies history of strokes. Related Data Home Medications ?Medication ?Instructions ?Recorded ?Confirmed atorvastatin 40 mg tablet 40 mg PO DAILY@169903/19/22 12/31/24 fenofibrate nanocrystallized 145 145 mg PO DAILY@69903/19/22 12/31/24 mg tablet dutasteride 0.5 mg capsule 0.5 mg PO DAILY@169908/06/22 12/31/24 (Avodart) cholecalciferol (vitamin D3) 10 10 mcg PO DAILY@69909/05/23 12/31/24 mcg (400 unit) tablet ferrous sulfate 325 mg (65 mg 325 mg PO BID@0700,169909/05/23 12/31/24 iron) tablet omeprazole 20 mg capsule,delayed 20 mg PO DAILY@0609/05/23 12/31/24 release vit C 250 mg-vit E 90 mg-zinc 40 1 tab PO BID@1200,169909/05/23 12/31/24 mg-copper 1 jv-syxtcq-vuxnit capsule (PreserVision AREDS-2) digoxin 125 mcg (0.125 mg) tablet 125 mcg PO SUMOTUTHFR 09/29/24 12/31/24 metoprolol succinate 25 mg 25 mg PO DAILY@1700 12/17/24 12/31/24 tablet,extended release 24 hr midodrine 2.5 mg tablet 2.5 mg PO TID@0700,1200,1700 12/17/24 12/31/24 potassium chloride 20 mEq 20 meq PO DAILY@0700 12/17/24 12/31/24 tablet,extended release rivaroxaban 20 mg tablet (Xarelto) 20 mg PO DAILY@1700 12/17/24 12/31/24 Previous Rx's ?Medication ?Instructions ?Recorded bumetanide 2 mg tablet 2 mg PO BID@0700,1700 90 days #180 02/20/24 tabs metolazone 2.5 mg tablet 2.5 mg PO DAILY #30 tabs 12/28/24 Allergies Allergy/AdvReac Type Severity Reaction Status Date / Time hydromorphone (From Dilaudid) AdvReac Confusion Verified 01/06/25 12:41 Review of Systems Constitutional: Constitutional: Reports no additional constitutional complaints, Denies chills, Denies fever(s), Denies night sweats and Reports weakness (per patient's ) Eyes: Eyes: Reports no additional eye complaints, Denies blurry vision, Denies change in vision, Denies diplopia, Denies eye discharge, Denies loss of vision and Denies eye pain ENT: Denies dizziness Cardiovascular: Cardiovascular: Reports no additional cardiovascular complaints, Denies chest pain, Denies lightheadedness, Denies Loss of Consciousness and Denies dyspnea Respiratory: Respiratory: Reports no additional respiratory complaints and Denies dyspnea Gastrointestinal: Gastrointestinal: Reports no additional gastrointestinal complaints, Denies abdominal pain, Denies melena, Denies hematochezia, Denies change in bowel habits and Denies change in stool character Genitourinary: Genitourinary: Reports no additional male genitourinary complaints, Denies hematuria, Denies oliguria, Denies difficulty urinating, Denies dysuria, Denies urinary frequency, Denies urinary hesitancy, Denies urinary incontinence and Denies urinary urgency Musculoskeletal: Musculoskeletal: Reports no additional musculoskeletal complaints, Denies numbness and Denies tingling Neurologic: Reports confusion (per patient's ), Denies dizziness, Denies loss of vision, Denies numbness, Denies tingling and Reports weakness (per patient's ) Psychiatric: Psychiatric: Reports no additional psychiatric complaints and Reports confusion (per patient's ) Endocrine: Endocrine: Reports no additional endocrine complaints Hematologic/Lymphatic: Hematologic/Lymphatic: Reports no additional hematologic/lymphatic complaints Allergic/Immunologic: Allergic/Immunologic: Reports no additional allergic/immunologic complaints [facility] Past Medical History Attestation statement: The following information was validated with the patient. (all information validated with the patient's ) Source: old records reviewed, obtained from family (patient's provided additional history and confirmed the history provided by the patient.) and nursing notes reviewed Medical History Gastritis Gross hematuria Chronic atrial fibrillation (HFpEF) heart failure with preserved ejection fraction Low blood pressure Anemia Acute congestive heart failure Acute upper gastrointestinal bleeding Acute blood loss anemia COPD (chronic obstructive pulmonary disease) Hyperlipidemia Afib Nasal sinus tumor CAD (coronary artery disease) Surgical History Hx of CABG Family History Family History Mother No problems noted. Father No problems noted. Social History Social History Household Members: Spouse and Family Housing: House Do you presently have visiting nurse or other home services: Yes Alcohol intake: current Alcohol intake frequency: a few times a week Alcohol type: beer Comment: Patient reports 3 beers in the afternoon and 1 mixed drink before bed, bon Patient Tobacco Use Status: Former Tobacco user Tobacco use type: Cigar Smoked in Last 30 Days: Yes e-Cigarette/Vaping Use: Former Use Use of substances other than those prescribed or required for medical reasons: No Advance Directives: Yes Advance Directives on File: Yes Advance Directives Date on File: 02/16/22 Do you have a plan to hurt others: No Plan service: No Current occupational status: retired Cognitive needs: No Hearing needs: No Vision needs: Yes (rx glasses) Physical Exam ED Vital Signs: Vital Signs - 24 hr 01/06/25 12:40 01/06/25 13:35 Temperature 97.8 F Pulse Rate 63 59 Respiratory Rate 18 16 Blood Pressure 100/50 L 116/49 L Pulse Oximetry 96 97 Oxygen Delivery Method Room Air Room Air BMI result Body Mass Index 22.2 Const General: confusion (per patient's ) Nutritional Appearance: well nourished Orientation/consciousness: confusion (per patient's ) HENMT Head: Yes normal to inspection and Yes atraumatic Ears: hearing grossly normal bilaterally and external ears normal General nose exam: Normal external nose present, no nasal discharge noted and no epistaxis Face and sinus: Yes normal facial exam, No abrasion and No laceration Mouth: Normal oral and palatal mucosa present, no drooling and no muffled voice Eyes General: appearance normal, both eyes and all related structures Periorbital: periorbital findings normal Eyelids: Yes eyelids normal Conjunctivae: conjunctivae normal Pupils: Equal, round and reactive pupils present EOM: EOMs intact bilaterally Neck Neck: Yes normal visual inspection, Yes full ROM and Yes no lymphadenopathy Resp Effort & Inspection: normal respiratory effort and able to speak in complete sentences Neuro General: confusion (per patient's ) Cranial nerves: Yes Equal, round and reactive pupils present Cognition (Neuro): normal cognition Extrem General: Yes normal to inspection, Yes full ROM and Yes capillary refill normal Psych Appearance: grossly normal Mental Status: mental status grossly normal Affect: normal affect Attitude: cooperative Thought process: Normal thought process present Thought content: Normal thought content present Insight: Good insight present (Psych) Course Course Course Narrative: RME, this is a rapid medical exam performed by Andrez Gabriel please refer to primary provider for complete H&P- 79 year old male presents for evaluation of weakness. He was started on metolazone 2.5 mg p.o. last week. He lost 8 lb in 3 days while taking the medication. He has had increasing weakness and difficulty walking. Plan for basic labs Medications Administered Generic Name Dose Route Start Last Admin Trade Name Freq PRN Reason Stop Dose Admin Potassium Chloride 10 meq in 100 mls @ 100 mls/hr 01/06/25 15:30 01/06/25 16:22 Potassium Chloride/H20 IV 01/06/25 17:29 100 mls/hr Q1H SHAWANDA Administration Discontinued Medications Generic Name Dose Route Start Last Admin Trade Name Jabier PRN Reason Stop Dose Admin Potassium Chloride 10 meq in 100 mls @ 100 mls/hr 01/06/25 13:30 01/06/25 16:21 Potassium Chloride/H20 IV 01/06/25 15:29 Infused Q1H SHAWANDA Infusion Potassium Chloride 20 meq 01/06/25 13:30 01/06/25 13:54 Potassium Chloride Er 20 Meq Tab.Er.Prt PO 01/06/25 13:31 20 meq ONCE ONE Administration Medical Decision Making Medical Decision Making MDM Narrative: Patient is a 79 year old assigned male at with a history of atrial fib, CAD, HFpEF, and anemia presenting to the emergency department today with increased weakness and subjective confusion per patient's . Patient's physical exam was unremarkable. Patient's blood work showed a hgb of 8.8, potassium of 2.2, sodium of 125, and calcium of 10.8. I suspect the patient has electrolyte abnormality secondary to bumex + metolazone diuretics. I spoke with the hospitalist team who agreed to admission for continued electrolyte repletion. I explained my physical exam findings as well as all test results to the patient and the patient's . I answered all questions asked by the patient and the patient's . Patient and the patient's verbalized agreement and understanding with this treatment plan and admission. Differential Diagnosis Differential Diagnoses: The differential diagnosis associated with the presentation includes Electrolyte abnormality Hyponatremia Hypokalemia Hypercalcemia Admission/Observation Consideration of admission/observation: Escalation of care including admission/observation considered Patient admitted as noted in the MDM Rationale portion of this note. Consult Healthcare Provider Management of the patient was discussed with: Hospitalist (agreed to admission as noted in the MDM Rationale portion of this note. ) Lab Data [facility] Lab Attestation statement: I reviewed the patient's lab results. My interpretation of these results are in the MDM Rationale portion of this note. 01/06/25 12:50 01/06/25 12:50 Labs: Lab Results 01/06/25 Range/Units 12:50 WBC 10.1 (4.8-10.8) X10*3/uL RBC 2.70 L (4.60-5.80) X10*6/uL Hgb 8.8 L (14.0-18.0) g/dl Hct 25.3 L (42.0-52.0) % MCV 93.7 (80.0-98.0) fL MCH 32.6 (27.0-33.0) pg MCHC 34.8 (31.0-36.0) g/dl RDW 15.8 (11.0-16.0) % Plt Count 299 D (160-400) X10*3/uL MPV 10.3 (9.4-12.4) fL Immature Gran % (Auto) 0.7 H (0.0-0.4) % Neut % (Auto) 73.1 H (45-73) % Lymph % (Auto) 8.9 L (20-40) % Smyth % (Auto) 16.9 H (2-11) % Eos % (Auto) 0.1 (0-4) % Baso % (Auto) 0.3 (0-2) % Lymph # (Auto) 0.9 L (1.2-4.9) X10*3/uL Smyth # (Auto) 1.7 H (0.1-1.2) X10*3/uL Eos # (Auto) 0.0 (0.0-0.4) X10*3/uL Baso # (Auto) 0.0 (0.0-0.2) X10*3/uL Abs Immat Gran (auto) 0.07 H (0.00-0.03) X10*3/uL Absolute Neuts (auto) 7.4 (2.0-8.3) x10*3/uL Absolute Nucleated RBC 0.000 (0.0-0.012) X10*3/uL Nucleated RBC % (auto) 0.0 (0.0-0.2) /100WBC Smear Tech's Comments VERIFIED Sodium 125 L (135-145) mmol/L Potassium 2.2 L* D (3.3-5.1) mmol/L Chloride 81 L D (96-108) mmol/L Carbon Dioxide 33 H (22-29) mmol/L Anion Gap 13 (12-20) BUN 49 H (9-16) mg/dL Creatinine 1.27 (0.5-1.4) mg/dL Estim Creat Clear Calc 48.1 Estimated GFR 55 Random Glucose 144 H (60-115) mg/dL Calcium 10.8 H D (8.4-10.2) mg/dL Magnesium 1.9 (1.6-2.6) mg/dL Total Bilirubin 0.8 (0.0-1.0) mg/dL AST 38 H (5-37) U/L ALT 10 (0-40) U/L Alkaline Phosphatase 61 (39-117) U/L B-Natriuretic Peptide 850 H (<100) pg/mL Total Protein 6.2 L (6.5-8.0) g/dL Albumin 3.1 L (3.5-5.0) g/dL Lipase 123 H (8-78) U/L Independent Historian Clinical information obtained from an independent historian. History obtained from or confirmed by: Spouse (Patient's provided additional history and confirmed the history provided by the patient. ) Critical Care Time Critical Care Time Critical Care Time: Yes Total Critical Care Time: 36 Attestation: I spent 36 minutes of Critical Care Time with this patient. This does not include time spent on separately reported billable procedures. Discharge Plan Discharge Clinical Impression: Acute hyponatremia, Acute hypokalemia Patient Disposition: Admitted As Inpatient
--- NOTE | 2025-01-06 12:46 | ECG_ITS ---
Test Reason : AFIB Blood Pressure : */* mmHG Vent. Rate : 66 BPM Atrial Rate : * BPM P-R Int : * ms QRS Dur : 200 ms QT Int : 522 ms P-R-T Axes : * -69 51 degrees QTcB Int : 547 ms Atrial fibrillation with premature ventricular or aberrantly conducted complexes Right bundle branch block Left anterior fascicular block Bifascicular block QT has lengthened Septal infarct Abnormal ECG When compared with ECG of 17-Dec-2024 18:10, Poor data quality in priot EKG prevent adequate comparision Referred By: Ovidio Hagan Electronically Signed By: SHANNON ANGULO MD
[2025-01-06 12:57] LABS: Hematocrit 25.3 % (42.0-52.0); Hemoglobin 8.8 g/dl (14.0-18.0); Imm Gran Abs Auto 0.07 X10*3/uL (0.00-0.03); Imm Gran Pct Auto 0.7 % (0.0-0.4); Lymphocytes Absolute Auto 0.9 X10*3/uL (1.2-4.9); MANUAL DIFF FLAG SCAN; Mean Corpuscular HGB Conc 34.8 g/dl (31.0-36.0); Mean Corpuscular Hemoglobin 32.6 pg (27.0-33.0); Mean Corpuscular Volume 93.7 fL (80.0-98.0); NRBC Abs Auto 0.000 X10*3/uL (0.0-0.012); NRBC Pct Auto 0.0 /100WBC (0.0-0.2); Platelet Count 299 X10*3/uL (160-400); Red Blood Count 2.70 X10*6/uL (4.60-5.80); SCAN SMEAR FLAG 1; White Blood Count 10.1 X10*3/uL (4.8-10.8)
[2025-01-06 13:16] LABS: Alanine Aminotransferase 10 U/L (0-40); Albumin Level 3.1 g/dL (3.5-5.0); Alkaline Phosphatase 61 U/L (39-117); Aspartate Amino Transferase 38 U/L (5-37); Blood Urea Nitrogen 49 mg/dL (9-16); Calcium 10.8 mg/dL (8.4-10.2); Creatinine Clr Calc Pharmacy 48.1; Estimated Glomerular Filt Rate 55; Lipase 123 U/L (8-78); Magnesium 1.9 mg/dL (1.6-2.6); Total Protein 6.2 g/dL (6.5-8.0)
[2025-01-06 13:20] LABS: B Type Natriuretic Peptide 850 pg/mL (<100)
[2025-01-06 13:24] LABS: Anion Gap 13 (12-20); Carbon Dioxide 33 mmol/L (22-29); Chloride 81 mmol/L (96-108); Potassium 2.2 mmol/L (3.3-5.1); Sodium 125 mmol/L (135-145)
[2025-01-06 13:35] VITALS: BP 116/49; PULSE 59; RESP 16; O2SAT 97
[2025-01-06] MEDS: Potassium Chloride ER 20 MEQ TAB.ER.PRT PO (13:54)
[2025-01-06] MEDS: Potassium Chloride/H20 10 MEQ/100 ML PIGGYBACK 100 MEQ IV ×6 (14:06→23:35)
--- OUTSIDE RECORDS SUMMARY | 2025-01-06 14:45 | XMS_ITS | Clinical Summary ---
Author Organization [facility] [address] [facility] Address [address] [place] [address] Phone Care Team Providers Care Supply Chain Buyer Name Role Phone Darek Ronquillo MD Primary Care Provider [phone] Allergies Active Allergy Reactions Criticality Noted Date [...] Do not crush, chew, or split. Active wn-wts-CR-vit B-pobdmm-hmzsaci (PreserVision AREDS 2 Plus MV) 200 mcg-15 [...] thoracentesis. Alternatively he could follow-up with his tile finisher and see if any adjustments in his medications would simply resolve the problem. He is currently on Bumex. His preference is to follow-up with his tile finisher at [facility] and I will make sure to send [...] general and how their size, shape, and gear changer time affect her level of suspicion [...] general and how their size, shape, and gear changer time affect her level of suspicion [...] follow-up on pleural effusion. Ascending aortic aneurysm ([facility] V24) 06/12/20 Overview (08/10/2024): [...] will continue to monitor this. Aortic aneurysm ([facility] V24) 12/21/2020 Overview (08/10/2024): Last Assessment & Plan: sinus of Valsalva 4.3 cm, ascending aorta 4.5 cm, transverse aorta at 4.5 cm. Blood pressure is stable. Continue metoprolol. We will continue to monitor yearly. Chronic atrial fibrillation ([facility] V24, [facility]/ C V28) 12/21/2020 Overview (08/10/2024): Last Assessment & Plan: He presents in a rate controlled atrial fibrillation. He will continue metoprolol and diltiazem at current doses. His [id number] score is elevated at 5(age, CHF, HTN, [...] Continue regimen as above. Peripheral vascular disease ([facility] V24) 2020 Overview (08/10/2024): [...] ensure he does not have a pneumonia. Immunizations Name Administration Dates Next Due Pfizer SARS-CoV-2 COVID-19, mRNA, LNP-S, preservative free 09/03/2020,08/13/2020 Surgical History Surgery Date Site/Laterality Comments CORONARY ARTERY BYPASS GRAFT 2002 PROCEDURE: HISTORICAL CABG OTHER SURGICAL HISTORY 11/15/2023 PROCEDURE: MO BRONCHOSCOPY W/CPTR-ASST IMAGE-GUIDED NAVIGATION; COMMENT: Kyle Bronch/EBUS with Biopsies Medical History Medical History Date Comments Atrial fibrillation ([facility] V24, [facility] V28) 09/30/2023 DX:Atrial fibrillation (HCC) Anemia 09/30/2023 DX:Anemia Mixed hyperlipidemia 09/30/2023 DX:Mixed hy perlipidemia Peripheral vascular disease ([facility] V24) 09/30/2023 DX:Peripheral vascular disea se ([facility]) COPD (chronic obstructive pu lmonary disease) ([facility] V24, [facility] V28) 09/30/2023 DX:COPD (chronic [...] polyps Thoracic aortic aneurysm wit hout rupture ([facility] V24) DX:Thoracic aortic aneurysm without rupture (HCC) Basal cell carcinoma of skin , unspecified DX:Basal cell carcinoma of s kin, unspecified Vitamin D deficiency DX:Vitamin D deficiency Paroxysmal atrial fibrillati on ([facility] [place]24, [facility] V28) DX:Paroxysmal atrial fibril lation (HCC) Encounter for screening for malignant neoplasm of rectum DX:Encounter for screening f or malignant neoplasm of rectum Personal history of nicotine dependence DX:Personal history of nicot ine dependence Chronic diastolic (congestiv e) heart failure ([facility] V24, [facility] V28) DX:Chronic diastoli c (congestive) heart failure (HCC) Pulmonary emphysema ([facility] V24, [facility] V28) DX:Pulmonary emphysema (HCC) Family History Medical [...] 71 09/10/2024 10:01 AM EST Temperature 36.7 C (98.1 F) 09/10/2024 10:01 AM EST Respiratory Rate 14 09/10/2024 10:0 [...] Procedure Name Priority Date/Time Associated Diagnosis Comments ANNUAL BMP BLOOD TEST Routine 01/01/2022 from Last 3 Months or Most Recently Relevant to Health Maintenance Results * Annual BMP Blood Test (01/01/2022) Annual BMP Blood Test abstracted us Historical Provider HEALTH MAINTENANCE Final Result from Last 3 Months or Most Recently Relevant to Health Maintenance Insurance [employer] [address] [place] [address] Care Teams Supply Chain Buyer Relationship Specialty Start Date End Date Darek Ronquillo MD [address] [place] [address] Dr Navdeep [place] PCP - General 03/01/08
--- OUTSIDE RECORDS SUMMARY | 2025-01-06 14:45 | XMS_ITS | Patient Health Record ---
Author Organization [facility] Address [address] [place] [address] Care Team Providers Care Civil Engineering Professor Name Role Phone Darek Ronquillo MD Primary Care Provider Soren Jaimes Jr Unavailable [phone] Allergies No Known Allergies Reason For Referral [...] Problem Status W/U Status Risk Notes Problem [id number] Heme positive stool (R19.5) Active confirmed Problem Gastritis (4344673) Gastritis (K29.70) Active confirmed Problem [id number] Anemia, unspecified type (D64.9) Active confirmed Vital Signs Temperature 97.5 degrees Fahrenheit 08/10/2024 Blood pressure diastolic 00 mm Hg 08/10/2024 Height 5 ft 11 in in 08/10/2024 Blood pressure systolic 000 mm Hg 08/10/2024 Weight 180 lbs 08/10/2024 BMI 25.10 kg/m2 08/10/2024 Procedures Procedure Date Ordered Date Performed Result Body Sit e VIDEO CAPSULE ENDOSCOPY 10/06/2024 N/A Encounters Encounter Location Date Provider Diagnosis [facility] [address] [place] [phone] 08/10/2024 Soren Boothe Jr Anemia, unspecified type D64.9 [facility] [address] [place] [phone] 08/04/2024 Soren Boothe Jr [facility] [address] [place] [phone] 10/06/2024 Soren Boothe Jr Anemia, unspecified type D64.9 and Heme positive stool R19.5 [facility] [address] [place] [phone] 11/05/2024 Soren Boothe Jr Assessments Encounter Date [...] CAPSULE ENDOSCOPY 11/01/2023 Next Appt Details Provider Name:Sorenbetitna wadsworth Jr, 01/25/2025 01:35:00 PM, [address], [address], [place], [address], Insurance Providers Payer Name Payer Address Payer Phone Subscriber Number Group Number Insured Name Patient Relationship to Insured Coverage Start Date Coverage End Date [facility] [address] [place] [phone] [id number] STEFFEN ANTHONY Self - patient is the insured Medical (General) History Medical History History ICD Code Hypotension Coronary artery disease with heart failu re/preserved ejection fraction Atrial fibrillation Anemia Right maxillary sinus tumor, surgery at [facility] General Surgical History Surgery Date(Month/Year) Coronary artery bypass grafting
--- OUTSIDE RECORDS SUMMARY | 2025-01-06 14:45 | XMS_ITS | Patient Health Record ---
Author Organization [facility] Address [address] [place] [address] Care Team Providers Care Automotive Worker Name Role Phone Darek Ronquillo MD Primary Care Provider Ariadne Doan Unavailable [phone] Allergies Allergen (clinical drug ingredient) Drug/Non Drug Allergy documented on EMR Reaction Allergy Type Onset Date Status hydromorphone Dilaudid hallucinations Drug Allergy Active tramadol traMADol HCl hallucinations Drug Allergy Active Reason For Referral No Information Medications Medication SIG (Take, Route, Frequency, Duration) Notes Start Date End Date Status Fenofibrate 145 MG 1 tablet Orally Once a day; Duration: 30 day(s) Active Dutasteride 0.5 MG 1 capsule Orally Onc e a day; Duration: 30 day(s) Active Omeprazole 20 MG 1 capsule 30 minutes before morning meal Orally Once a day; Duration: 30 day(s) Active Midodrine HCl 2.5 MG 1 tablet Orally Twi ce a day; Duration: 30 day(s) Active Metoprolol Succinate ER 25 MG 1 tablet Orally Once a day; Duration: 30 day(s) Active Ferrous Sulfate 325 (65 Fe) MG 1 tablet Orally Once a day; Duration: 30 day(s) Active PreserVision AREDS 2 Active Bumetanide 2 MG 1 tablet Orally Once a day; Duration: 30 day(s) Active Digoxin 125 MCG 1 tablet Orally Active Atorvastatin Calcium 40 MG 1 tablet Oral ly Once a day; Duration: 30 day(s) Active Acetaminophen 325 MG 1 tablet as needed Orally every 4 hrs Active Amiodarone HCl 200 MG 1 tablet Orally On ce a day; Duration: 30 day(s) Active Xarelto 20 MG 1 tablet with food Orally Once a day; Duration: 30 day(s) Active Vitamin D3 Active Social [...] Problem Status W/U Status Risk Notes Problem Bilateral atherosclerosis of arteries of lower limbs (disorder) (55522104415488324 ) Atherosclerosis of artery of both lower extremities (I70.203) Active confirmed Problem Ulcer of left heel (disorder) (72837074525404939 ) Skin ulcer of left heel, limited to breakdown of skin (L97.421) Active confirmed Vital Signs Blood pressure diastolic 60 mm Hg 10/21/2024 Height 5 ft 11 in in 10/21/2024 Blood pressure systolic 120 mm Hg 10/21/2024 Weight 180 lbs 10/21/2024 BMI 25.1 kg/m2 10/21/2024 Encounters Encounter Location Date Provider Diagnosis [address] [address] 02/25/2024 Ariadne Perica Atherosclerosis of artery of both lower extremities I70.[facility] [address] 04/29/2024 Ariadne Perica Atherosclerosis of artery of both lower extremities I70.[address] [address] 07/21/2024 Ariadne Perica Atherosclerosis of artery of both lower extremities I70.[address] [address] 10/21/2024 Ariadne Perica Atherosclerosis of artery of [...] Provider Name:Ariadne ordoñez, 01/26/2025 09:30:00 AM, [address] [place], [address], Insurance Providers Payer Name Payer Address Payer Phone Subscriber Number Group Number Insured Name Patient Relationship to Insured Coverage Start Date Coverage End Date [facility] [address] [place] [address] [phone] [id number] Hector Diaz Self - patient is the [...]
[2025-01-06 14:55] VITALS: BP 125/50; PULSE 61; RESP 19; TEMP 36.6; O2SAT 98
--- NOTE | 2025-01-06 15:09 | PM.IMHP ---
History of Present Illness Date of Service: 01/06/25 Attending physician on admission: O[facility] Chief Complaint: Weakness Pt is a 79-year-old male with a PMH significant for?CAD s/p CABG x2 2004, HFrEF (LVEF 40-45%), HFpEF, chronic AFib on Xarelto, anemia, GERD, hx of nasopharyngeal carcinoma, and orthostatic hypotension who presents to the ED with?increased weakness and reported recent 8 lb weight loss after starting new medications. Pt was recently discharged from the hospital last month on 12/20 after being admitted for acute on chronic CHF exacerbation. Pt was discharged on his home diuretics and regained almost all of his previous weight back within 2 days. Presented to PCP's office on 12/28 where he was started on metolazone 2.5 mg daily. Was seen a few days later on 12/31 by Cardiology who continue both Bumex and metolazone. Yesterday noticed pt was acting confused from baseline, staring off into space, not answering appropriately. This morning pt appeared unbalanced and had difficulty walking. Pt himself states that he fell a few nights ago, though is unclear about the circumstances. He ?thinks? that he tripped, though may have also had some lightheadedness or dizziness. Currently pt states he feels slightly weak, but otherwise denies any acute medical complaints. No chest pain/pressure, palpitations. Denies fever, chills, nausea, vomiting, abdominal pain. No SOB or difficulty breathing. In the ED pt with soft BP as low as 100/50, vitals otherwise stable and WNL. Labs were significant for sodium 125, potassium 2.2, chloride 81, bicarb 33, creatinine 1.27, BNP 850, and lipase 123. No leukocytosis. Stable normocytic anemia. Pt was treated in the ED with potassium chloride 20 mEq p.o. and 20 meq IV. Pt is admitted to the hospital for treatment and further evaluation of KEN and electrolyte abnormalities in the setting of increased diuretic use. Review of Systems Review of Systems: Negative except for that which is stated in the HPI. [facility] Medical History Gastritis Gross hematuria Chronic atrial fibrillation (HFpEF) heart failure with preserved ejection fraction Low blood pressure Anemia Acute congestive heart failure Acute upper gastrointestinal bleeding Acute blood loss anemia COPD (chronic obstructive pulmonary disease) Hyperlipidemia Afib Nasal sinus tumor CAD (coronary artery disease) Family History Mother No problems noted. Father No problems noted. Surgical History Hx of CABG Social History Household Members: Spouse Housing: House Do you presently have visiting nurse or other home services: Yes Alcohol intake: current Alcohol intake frequency: a few times a week Alcohol type: beer Comment: Patient reports 3 beers in the afternoon and 1 mixed drink before bed, bon Patient Tobacco Use Status: Former Tobacco user Tobacco use type: Cigar Smoked in Last 30 Days: Yes e-Cigarette/Vaping Use: Former Use Use of substances other than those prescribed or required for medical reasons: No Advance Directives: Yes Advance Directives on File: Yes Advance Directives Date on File: 02/16/22 Do you have a plan to hurt others: No Plan service: No Current occupational status: retired Cognitive needs: No Hearing needs: No Vision needs: Yes (rx glasses) Meds Allergies Allergy/AdvReac Type Severity Reaction Status Date / Time hydromorphone (From Dilaudid) AdvReac Confusion Verified 01/06/25 12:41 Active Medications: Current Medications Potassium Chloride (Potassium Chloride/H20) 10 meq in 100 mls @ 100 mls/hr IV Q1H SH[place]ANDA Stop: 01/06/25 15:29 Last Admin: 01/06/25 14:06 Dose: 100 mls/hr Home Medications ?Medication ?Instructions ?Recorded ?Confirmed ?Last Taken ?Type atorvastatin 40 mg tablet 40 mg PO DAILY@169903/19/22 01/06/25 01/05/25 History fenofibrate nanocrystallized 145 145 mg PO DAILY@69903/19/22 01/06/25 01/06/25 History mg tablet dutasteride 0.5 mg capsule 0.5 mg PO DAILY@169908/06/22 01/06/25 01/05/25 History (Avodart) cholecalciferol (vitamin D3) 10 10 mcg PO DAILY@69909/05/23 01/06/25 01/06/25 History mcg (400 unit) tablet ferrous sulfate 325 mg (65 mg 325 mg PO BID@0700,1700 09/05/23 01/06/25 01/06/25 History iron) tablet omeprazole 20 mg capsule,delayed 20 mg PO DAILY@0630 09/05/23 01/06/25 01/06/25 History release vit C 250 mg-vit E 90 mg-zinc 40 1 tab PO BID@1200,1700 09/05/23 01/06/25 01/06/25 History mg-copper 1 [id number] capsule (PreserVision AREDS-2) digoxin 125 mcg (0.125 mg) tablet 125 mcg PO SUMOTUTHFR 09/29/24 01/06/25 01/05/25 History metoprolol succinate 25 mg 25 mg PO DAILY@17012/17/24 01/06/25 01/05/25 History tablet,extended release 24 hr midodrine 2.5 mg tablet 2.5 mg PO TID@0700,1200,1700 12/17/24 01/06/25 01/06/25 History potassium chloride 20 mEq 20 meq PO DAILY@0700 12/17/24 01/06/25 01/06/25 History tablet,extended release rivaroxaban 20 mg tablet (Xarelto) 20 mg PO DAILY@17012/17/24 01/06/25 01/05/25 History Physical Exam Vital Signs and Narrative: Vital Signs: Last Vital Signs Temp 97.9 F 01/06/25 14:55 Pulse 61 01/06/25 14:55 Resp 19 01/06/25 14:55 BP 125/50 L 01/06/25 14:55 Pulse Ox 98 01/06/25 14:55 O2 Del Method Room Air 01/06/25 14:55 BMI result Body Mass Index 22.2 General: AOx3, no acute distress. Overall appears weak. Mouth: Poor dentition Resp: CTA bilaterally though diminished CVS: S1, S2, RRR GI: +BS, NT, no distention Skin: Warm, dry Neuro: Cranial nerves II-XII grossly intact bilaterally. Motor grossly intact bilaterally Extremities: Trace to 1+ pitting lower leg edema. L>R Psych: Appropriate affect Results Labs 01/07/25 06:00 01/07/25 06:00 Labs: Laboratory Results - last 24 hr 01/06/25 12:50 MCV 93.7 MCH 32.6 MCHC 34.8 RDW 15.8 Plt Count 299 D MPV 10.3 Immature Gran % (Auto) 0.7 H Neut % (Auto) 73.1 H Lymph % (Auto) 8.9 L [place] % (Auto) 16.9 H Eos % (Auto) 0.1 Baso % (Auto) 0.3 Lymph # (Auto) 0.9 L [place] # (Auto) 1.7 H Eos # (Auto) 0.0 Baso # (Auto) 0.0 Abs Immat Gran (auto) 0.07 H Absolute Neuts (auto) 7.4 Absolute Nucleated RBC 0.000 Nucleated RBC % (auto) 0.0 Smear Tech's Comments VERIFIED Anion Gap 13 Estim Creat Clear Calc 48.1 Estimated GFR 55 Random Glucose 144 H Calcium 10.8 H D Magnesium 1.9 Total Bilirubin 0.8 AST 38 H ALT 10 Alkaline Phosphatase 61 B-Natriuretic Peptide 850 H Total Protein 6.2 L Albumin 3.1 L Lipase 123 H Assessment and Plan (1) KEN (acute kidney injury): Status: Acute (2) Hypokalemia: Status: Acute Plan Pt is a 79-year-old male with a PMH significant for?CAD s/p CABG x2 2004, HFrEF (LVEF 40-45%), HFpEF, chronic AFib on Xarelto, anemia, GERD, hx of nasopharyngeal carcinoma, and orthostatic hypotension who presents to the ED with?increased weakness and reported recent 8 lb weight loss after starting new medications. Pt is admitted to the hospital for treatment and further evaluation of KEN and electrolyte abnormalities in the setting of increased diuretic use. KEN, hyponatremia, hypokalemia in the setting of increased diuretic use Creatinine 1.27 (previous 0.80), sodium 125, potassium 2.2 Pt is started on metolazone 2.5 mg on 12/28 Pt given potassium 20 mEq IV and p.o. in the ED Will give additional potassium 20 mEq IV Hold Bumex and metolazone Continue home potassium chloride Follow labs closely Monitor on telemetry Generalized weakness With recent fall at home Reports feeling unsteady on feet, does not use assistive device at baseline PT consult HFrEF Not in acute exacerbation Hold diuretics as above Cardiology consult Persistent AFib Continue metoprolol, Xarelto Anemia Appears stable, at baseline Continue iron supplementation GERD Continue omeprazole Full Code Attending:?Dr. Hagan DVT Prophylaxis: On Xarelto Pt will require a hospitalization of at least two nights for treatment of?generalized weakness and KEN and electrolyte abnormalities in the setting of increased diuretic use. Pt will require hospital level care for close cardiac and lab monitoring, and supplementation as necessary. Quality Stroke Does the patient have a stroke diagnosis?: No VTE Prior VTE?: No VTE Risk Level:: Medical - moderate - high VTE Device Contraindication: Treatment Not Indicated VTE Drug Contraindication: N/A - Med Ordered
--- NOTE | 2025-01-06 17:11 | PHA.MEDREC ---
Pharmacy Consult ? Medication Reconciliation Pharmacy has completed the medication reconciliation. Spoke to at bedside to confirm medication list. No change since last discharge on 12/20/24 except that pt was put on new medication metolazone (last dose was yesterday 01/05/25).
[2025-01-06 17:41] VITALS: BP 120/48; PULSE 62; RESP 13; TEMP 36.6; O2SAT 94
[2025-01-06 18:11] LABS: Appearance Urine Clear; Glucose Urine UA Negative (Negative); PH 7.5 (5.0-9.0); Specific Gravity - Urine 1.010 (1.005-1.025); UMIC TRIGGER UACC YES
--- NOTE | 2025-01-06 19:09 | PC.NURSE ---
79 y.o. M.PMHX: Afib (on xarelto), CAD, new dx of CHF during stay at [facility] on 12/20. Alert, oriented, independent with ADL's at baseline presents to dept from home with . Per pt pt was seen by PCP for discharge followup for new CHF on 12/28. At this time pt was prescribed Metolazone in addition to bumex, for Tank Lower leg edema. These medications were continued by cardiology on 12/31. Pt was compliant with new medications. Yesterday noticed pt was acting confused from baseline, staring off into space, not answering appropriately. Today pt began to have difficulty walking and standing. Labs were obtained in dept significant for NA 125, and K+ 2.2 , creatinine 1.27. pt rec PO (20meq) K+ replenishment as well as 10meq IV x4. Pt has 20G IV access in R-AC. Plan is for admission to hospital for electrolyte imbalance and KEN d/t diuretic use.
--- NOTE | 2025-01-06 19:33 | PC.NURSE ---
pt medicated per SEP- able to take meds whole without difficulty
[2025-01-06 19:44] LABS: Anion Gap 13 (12-20); Blood Urea Nitrogen 45 mg/dL (9-16); Calcium 10.7 mg/dL (8.4-10.2); Carbon Dioxide 33 mmol/L (22-29); Chloride 85 mmol/L (96-108); Creatinine Clr Calc Pharmacy 57.6; Estimated Glomerular Filt Rate > 60; Potassium 2.5 mmol/L (3.3-5.1); Sodium 128 mmol/L (135-145)
--- NOTE | 2025-01-06 19:45 | PC.NURSE ---
Critical K+ 2.5 received, Demetrius LARSON notified via [facility]
[2025-01-06 20:00] VITALS: BP 124/60; PULSE 55; RESP 16; TEMP 37.2; O2SAT 97
[2025-01-06 22:00] VITALS: BP 119/58; PULSE 64; RESP 16; TEMP 37.1; O2SAT 95
[2025-01-06] MEDS: Potassium Chloride Packet 20 MEQ PACKET 40 MEQ PO (22:34)
[2025-01-07] VITALS (9 sets, daily range): BP systolic 102–124; BP diastolic 53–64; PULSE 59–76; RESP 16–18; TEMP 36.1–36.8; O2SAT 89–95
[2025-01-07 07:16] LABS: Anion Gap 10 (12-20); Blood Urea Nitrogen 41 mg/dL (9-16); Calcium 10.8 mg/dL (8.4-10.2); Carbon Dioxide 34 mmol/L (22-29); Chloride 87 mmol/L (96-108); Creatinine Clr Calc Pharmacy 62.9; Estimated Glomerular Filt Rate > 60; Magnesium 2.0 mg/dL (1.6-2.6); Sodium 128 mmol/L (135-145)
[2025-01-07 07:20] LABS: Hematocrit 24.2 % (42.0-52.0); Hemoglobin 8.5 g/dl (14.0-18.0); Mean Corpuscular HGB Conc 35.1 g/dl (31.0-36.0); Mean Corpuscular Hemoglobin 33.1 pg (27.0-33.0); Mean Corpuscular Volume 94.2 fL (80.0-98.0); NRBC Abs Auto 0.000 X10*3/uL (0.0-0.012); NRBC Pct Auto 0.0 /100WBC (0.0-0.2); Platelet Count 268 X10*3/uL (160-400); Red Blood Count 2.57 X10*6/uL (4.60-5.80); White Blood Count 9.1 X10*3/uL (4.8-10.8)
[2025-01-07 07:44] LABS: Potassium 2.9 mmol/L (3.3-5.1)
--- NOTE | 2025-01-07 07:56 | P.PNIM_ITS ---
Subjective Subjective Date of Service: 01/07/25 Interval History: f/u on ken, hponatremia, weakness, low potassium with recent increase in diuretics Physical Exam 2 Vital Signs: Vital Signs: Last Vital Signs Temp 97.1 F 01/07/25 03:36 Pulse 69 01/07/25 03:36 Resp 18 01/07/25 03:36 BP 108/53 L 01/07/25 03:36 Pulse Ox 92 01/07/25 03:36 O2 Del Method Room Air 01/07/25 03:36 BMI result Body Mass Index 22.2 General: AOx3, no acute distress. Overall appears weak. Mouth: Poor dentition Resp: CTA bilaterally though diminished CVS: S1, S2, RRR GI: +BS, NT, no distention Skin: Warm, dry Neuro: Cranial nerves II-XII grossly intact bilaterally. Motor grossly intact bilaterally Extremities: Trace to 1+ pitting lower leg edema. L>R Psych: Appropriate affect Objective Data Active Medications Acetaminophen (Acetaminophen 325 Mg Tablet) 650 mg PO Q6H PRN PRN Reason: Pain, Mild 1-3,fever,headache Atorvastatin Calcium (Atorvastatin Calcium 40 Mg Tablet) 40 mg PO DAILY@1700 [facility] Last Admin: 01/06/25 19:31 Dose: 40 mg Documented By: RONNIE Calcium Carbonate (Calcium Carbonate 750 Mg Tab.Chew) 750 mg PO Q4H PRN PRN Reason: Heartburn Digoxin (Digoxin 0.125 Mg Tablet) [facility]; Protocol Fenofibrate (Fenofibrate 160 Mg Tablet) 160 mg PO DAILY@0700 [facility] Ferrous Sulfate (Ferrous Sulfate 324 Mg Tablet.) 324 mg PO BID@0700,1700 [facility] Folic Acid (Folic Acid 1 Mg Tablet) 1 mg PO DAILY [facility] Stop: 01/10/25 08:59 Lorazepam (Lorazepam 1 Mg Tablet) 1 mg PO Q4H PRN PRN Reason: Breakthrough alcohol withdrawa Stop: 01/10/25 22:42 Magnesium Hydroxide (Milk Of Magnesia 30 Ml Oral.Susp) 30 ml PO DAILY PRN PRN Reason: Constipation Melatonin (Melatonin 3 Mg Tablet) 6 mg PO BEDTIME PRN PRN Reason: Insomnia Metoprolol Succinate (Metoprolol Succinate Er 25 Mg Tab.Er.24h) 25 mg PO DAILY@1700 [facility]; Protocol Midodrine (Midodrine Hcl 2.5 Mg Tablet) 2.5 mg PO TID@0700,1200,1700 [facility] Omeprazole (Omeprazole 20 Mg Capsule.Dr) 20 mg PO DAILY@0630 [facility] Last Admin: 01/07/25 06:24 Dose: Not Given Documented By: SIMON Non-Admin Reason: Patient Asleep Potassium Chloride (Potassium Chloride Er 20 Meq Tab.Er.Prt) 20 meq PO DAILY@0700 [facility] Rivaroxaban (Rivaroxaban 20 Mg Tablet) 20 mg PO DAILY@1700 [facility] Last Admin: 01/06/25 19:31 Dose: 20 mg Documented By: RONNIE Sodium Chloride (0.9 % Sodium Chloride Flush 3 Ml Syringe) 3 ml IVFLUSH QSHIFT [facility] Last Admin: 01/07/25 01:24 Dose: Not Given Documented By: SIMON Non-Admin Reason: IV Running Thiamine HCl (Thiamine Hcl 100 Mg Tablet) 100 mg PO DAILY [facility] Stop: 01/10/25 08:59 Vitamin D (Cholecalciferol (Vitamin D3) 10 Mcg Tablet) 10 mcg PO DAILY@0700 [facility] Labs 01/07/25 06:00 01/07/25 06:00 Labs: Laboratory Results - last 24 hr 01/06/25 01/06/25 01/06/25 12:50 17:45 19:17 MCV 93.7 MCH 32.6 MCHC 34.8 RDW 15.8 Plt Count 299 D MPV 10.3 Immature Gran % (Auto) 0.7 H Neut % (Auto) 73.1 H Lymph % (Auto) 8.9 L [place] % (Auto) 16.9 H Eos % (Auto) 0.1 Baso % (Auto) 0.3 Lymph # (Auto) 0.9 L [place] # (Auto) 1.7 H Eos # (Auto) 0.0 Baso # (Auto) 0.0 Abs Immat Gran (auto) 0.07 H Absolute Neuts (auto) 7.4 Absolute Nucleated RBC 0.000 Nucleated RBC % (auto) 0.0 Smear Tech's Comments VERIFIED Anion Gap 13 13 Estim Creat Clear Calc 48.1 57.6 Estimated GFR 55 > 60 Random Glucose 144 H 153 H Calcium 10.8 H D 10.7 H Magnesium 1.9 Total Bilirubin 0.8 AST 38 H ALT 10 Alkaline Phosphatase 61 B-Natriuretic Peptide 850 H Total Protein 6.2 L Albumin 3.1 L Lipase 123 H Urine Color Yellow Urine Appearance Clear Urine pH 7.5 Ur Specific [place] 1.010 Urine Protein 30 (1+) H Urine Glucose (UA) Negative Urine Ketones Negative Urine Blood Small (1+) H Urine Nitrite Negative Ur Leukocyte Esterase Negative Urine RBC 6-10 H Urine WBC 0-5 Ur Squamous Epith Cells 0-2 Urine Bacteria None Seen Hyaline Casts 0-2 01/07/25 06:00 MCV 94.2 MCH 33.1 H MCHC 35.1 RDW 15.8 Plt Count 268 MPV 10.8 Immature Gran % (Auto) Neut % (Auto) Lymph % (Auto) [place] % (Auto) Eos % (Auto) Baso % (Auto) Lymph # (Auto) [place] # (Auto) Eos # (Auto) Baso # (Auto) Abs Immat Gran (auto) Absolute Neuts (auto) Absolute Nucleated RBC 0.000 Nucleated RBC % (auto) 0.0 Smear Tech's Comments Anion Gap 10 L Estim Creat Clear Calc 62.9 Estimated GFR > 60 Random Glucose 111 Calcium 10.8 H Magnesium 2.0 Total Bilirubin AST ALT Alkaline Phosphatase B-Natriuretic Peptide Total Protein Albumin Lipase Urine Color Urine Appearance Urine pH Ur Specific [place] Urine Protein Urine Glucose (UA) Urine Ketones Urine Blood Urine Nitrite Ur Leukocyte Esterase Urine RBC Urine WBC Ur Squamous Epith Cells Urine Bacteria Hyaline Casts Assessment and Plan (1) KEN (acute kidney injury): Status: Acute (2) Acute hyponatremia: Status: Acute (3) Acute hypokalemia: Status: Acute Plan Pt is a 79-year-old male with a PMH significant for?CAD s/p CABG x2 2004, HFrEF (LVEF 40-45%), HFpEF, chronic AFib on Xarelto, anemia, GERD, hx of nasopharyngeal carcinoma, and orthostatic hypotension who presents to the ED with?increased weakness and reported recent 8 lb weight loss after starting new medications. Pt is admitted to the hospital for treatment and further evaluation of KEN and electrolyte abnormalities in the setting of increased diuretic use. KEN, hyponatremia, hypokalemia in the setting of increased diuretic use KEN resolved, hyponatremia is better Creatinine 1.27 (previous 0.80), sodium 125, potassium 2.2 stop diuretics (Bumex and Metolazone) correct potassium check urine studies for hyponatremia Nephrology consult Hypokalemia, replace with PO and follow level Generalized weakness With recent fall at home Reports feeling unsteady on feet, does not use assistive device at baseline PT consult HFrEF Not in acute exacerbation Hold diuretics as above we can hold cardiology consult Persistent AFib Continue metoprolol, Xarelto Anemia of chronic disease Appears stable, at baseline Continue iron supplementation GERD Continue omeprazole Full Code DVT Prophylaxis: On Xarelto Quality Stroke Does the patient have a stroke diagnosis?: No VTE Prior VTE?: No VTE Risk Level:: Medical - moderate - high VTE Device Contraindication: Treatment Not Indicated VTE Drug Contraindication: N/A - Med Ordered
[2025-01-07] MEDS: Ferrous Sulfate 324 MG TABLET.DR PO ×2 (09:13→18:17)
[2025-01-07] MEDS: Cholecalciferol (Vitamin D3) 10 MCG TABLET PO (09:13)
[2025-01-07] MEDS: 0.9 % Sodium Chloride Flush 3 ML SYRINGE IVFLUSH ×3 (09:14→19:27)
[2025-01-07] MEDS: Potassium Chloride ER 20 MEQ TAB.ER.PRT PO ×3 (09:15→19:25)
--- NOTE | 2025-01-07 10:03 | P.CONNP_ITS ---
History of Present Illness Reason for Consult Consult date: 01/07/25 Chief Complaint Chief complaint: KEN, electrolyte imbalances History of Present Illness Narrative: 79 y/o male with?CAD s/p CABG x2 2004, HFrEF (LVEF 40-45%), HFpEF, chronic AFib on Xarelto, anemia, GERD, hx of nasopharyngeal carcinoma, and orthostatic hypotension. Presented 01/06 with increased weakness and recent 8lbs weight loss after starting new diuretic medications. Had recent admission in December for CHF exacerbation- diuretics increased as outpatient and had ensuing weight loss/weakness. Nephrology consulted for hyponatremia patient was taking bumex and metolazone as outpatient with 8lb weight loss- diuretics held since yesterday sodium 128 01/06, 7 is 128 potassium 2.2 01/06, replaced. 01/07 is 2.9 normal anion gap with serum bicarb 34, chloride 87. Review of Systems Constitutional: Reports fatigue and Reports weakness Cardiovascular: Denies chest pain, Denies leg edema, Denies lightheadedness and Denies dyspnea Respiratory: Denies dyspnea Gastrointestinal: Denies abdominal pain, Denies diarrhea, Denies nausea and Denies vomiting Genitourinary: Denies hematuria, Denies oliguria, Denies difficulty urinating, Denies dysuria and Denies flank pain Musculoskeletal: Denies back pain and Denies arthralgias Skin/Breast: Denies rash Reports weakness Endocrine: Reports fatigue PMFSH Past Medical History Medical History Gastritis Gross hematuria Chronic atrial fibrillation (HFpEF) heart failure with preserved ejection fraction Low blood pressure Anemia Acute congestive heart failure Acute upper gastrointestinal bleeding Acute blood loss anemia COPD (chronic obstructive pulmonary disease) Hyperlipidemia Afib Nasal sinus tumor CAD (coronary artery disease) Family History Family History Mother No problems noted. Father No problems noted. Surgical History Surgical History Hx of CABG Social History Social History Household Members: Spouse Housing: House Do you presently have visiting nurse or other home services: Yes Alcohol intake: current Alcohol intake frequency: a few times a week Alcohol type: beer Comment: Patient reports 3 beers in the afternoon and 1 mixed drink before bed, bon Patient Tobacco Use Status: Former Tobacco user Tobacco use type: Cigar Smoked in Last 30 Days: Yes e-Cigarette/Vaping Use: Former Use Use of substances other than those prescribed or required for medical reasons: No Currently Displaying Signs/Symptoms of Drug Intoxication Withdrawal: No Advance Directives: Yes Advance Directives on File: Yes Advance Directives Date on File: 02/16/22 Do you have a plan to hurt others: No Plan service: No Current occupational status: retired Cognitive needs: No Hearing needs: No Vision needs: Yes (rx glasses) Meds Allergies Allergy/AdvReac Type Severity Reaction Status Date / Time hydromorphone (From Dilaudid) AdvReac Confusion Verified 01/06/25 12:41 Active Medications: Current Medications Acetaminophen (Acetaminophen 325 Mg Tablet) 650 mg PO Q6H PRN PRN Reason: Pain, Mild 1-3,fever,headache Atorvastatin Calcium (Atorvastatin Calcium 40 Mg Tablet) 40 mg PO DAILY@1700 [facility] Last Admin: 01/06/25 19:31 Dose: 40 mg Calcium Carbonate (Calcium Carbonate 750 Mg Tab.Chew) 750 mg PO Q4H PRN PRN Reason: Heartburn Digoxin (Digoxin 0.125 Mg Tablet) 0.125 mg PO [facility]; Protocol Fenofibrate (Fenofibrate 160 Mg Tablet) 160 mg PO DAILY@0700 [facility] Last Admin: 01/07/25 09:13 Dose: 160 mg Ferrous Sulfate (Ferrous Sulfate 324 Mg Tablet.) 324 mg PO BID@0700,1700 [facility] Last Admin: 01/07/25 09:13 Dose: 324 mg Folic Acid (Folic Acid 1 Mg Tablet) 1 mg PO DAILY [facility] Stop: 01/10/25 08:59 Last Admin: 01/07/25 09:13 Dose: 1 mg Lorazepam (Lorazepam 1 Mg Tablet) 1 mg PO Q4H PRN PRN Reason: Breakthrough alcohol withdrawa Stop: 01/10/25 22:42 Magnesium Hydroxide (Milk Of Magnesia 30 Ml Oral.Susp) 30 ml PO DAILY PRN PRN Reason: Constipation Melatonin (Melatonin 3 Mg Tablet) 6 mg PO BEDTIME PRN PRN Reason: Insomnia Metoprolol Succinate (Metoprolol Succinate Er 25 Mg Tab.Er.24h) 25 mg PO DAILY@1700 [facility]; Protocol Midodrine (Midodrine Hcl 2.5 Mg Tablet) 2.5 mg PO TID@0700,1200,1700 [facility] Last Admin: 01/07/25 09:13 Dose: 2.5 mg Omeprazole (Omeprazole 20 Mg Capsule.) 20 mg PO DAILY@0630 [facility] Last Admin: 01/07/25 09:13 Dose: 20 mg Potassium Chloride (Potassium Chloride Er 20 Meq Tab.Er.Prt) 20 meq PO DAILY@0700 [facility] Last Admin: 01/07/25 09:15 Dose: 20 meq Potassium Chloride (Potassium Chloride Er 20 Meq Tab.Er.Prt) 20 meq PO BID [facility] Stop: 01/07/25 21:01 Last Admin: 01/07/25 09:16 Dose: 20 meq Rivaroxaban (Rivaroxaban 20 Mg Tablet) 20 mg PO DAILY@1700 [facility] Last Admin: 01/06/25 19:31 Dose: 20 mg Sodium Chloride (0.9 % Sodium Chloride Flush 3 Ml Syringe) 3 ml IVFLUSH QSHIFT [facility] Last Admin: 01/07/25 09:14 Dose: 3 ml Thiamine HCl (Thiamine Hcl 100 Mg Tablet) 100 mg PO DAILY [facility] Stop: 01/10/25 08:59 Last Admin: 01/07/25 09:13 Dose: 100 mg Vitamin D (Cholecalciferol (Vitamin D3) 10 Mcg Tablet) 10 mcg PO DAILY@07 [facility] Last Admin: 01/07/25 09:13 Dose: 10 mcg Home Medications ?Medication ?Instructions ?Recorded ?Confirmed ?Last Taken ?Type atorvastatin 40 mg tablet 40 mg PO DAILY@17003/19/22 01/06/25 01/05/25 History fenofibrate nanocrystallized 145 145 mg PO DAILY@0703/19/22 01/06/25 01/06/25 History mg tablet dutasteride 0.5 mg capsule 0.5 mg PO DAILY@1700 01/06/25 01/05/25 History (Avodart) cholecalciferol (vitamin D3) 10 10 mcg PO DAILY@0700 0 09/05/23 01/06/25 01/06/25 History mcg (400 unit) tablet ferrous sulfate 325 mg (65 mg 325 mg PO BID@0700,1700 09/05/23 01/06/25 01/06/25 History iron) tablet omeprazole 20 mg capsule,delayed 20 mg PO DAILY@0630 0 09/05/23 01/06/25 01/06/25 History release vit C 250 mg-vit E 90 mg-zinc 40 1 tab PO BID@1200,170 0 09/05/23 01/06/25 01/06/25 History mg-copper 1 [id number] capsule (PreserVision AREDS-2) digoxin 125 mcg (0.125 mg) tablet 125 mcg PO SUMOTUTHF R 09/29/24 01/06/25 01/05/25 History metoprolol succinate 25 mg 25 mg PO DAILY@1700 5 01/06/25 01/05/25 History tablet,extended release 24 hr midodrine 2.5 mg tablet 2.5 mg PO TID@0700,1200,1700 12/17/24 01/06/25 01/06/25 History potassium chloride 20 mEq 20 meq PO DAILY@0700 5 01/06/25 01/06/25 History tablet,extended release rivaroxaban 20 mg tablet (Xarelto) 20 mg PO DAILY@1700 12/17/24 01/06/25 01/05/25 History Physical Exam Vital Signs: Last Vital Signs Temp 98.3 F 01/07/25 08:00 Pulse 59 01/07/25 08:00 Resp 18 01/07/25 08:00 BP 110/64 01/07/25 08:00 Pulse Ox 3 L 01/07/25 08:00 O2 Del Method Nasal Cannula 01/07/25 08:00 O2 Flow Rate 89 01/07/25 08:00 BMI result Body Mass Index 22.2 Const General: no acute distress, alert and awake Resp Effort & Inspection: normal respiratory effort and able to speak in complete sentences Auscultation: clear to auscultation bilaterally Cardio Rate: regular rate Rhythm: regular rhythm Heart sounds: S1 normal heart sound present and S2 normal heart sound present GI Palpation (GI): Soft to palpation and nontender General: Yes no CVA tenderness Back/Spine/Pelvis Back: no CVA tenderness Skin Rashes: no rashes Extrem General: Yes edema (trace pitting edema BLE ) Results Lab Results 01/07/25 06:00 01/07/25 06:00 Lab results: Chemistry 01/06/25 01/06/25 01/07/25 12:50 19:17 06:00 Sodium 125 L 128 L 128 L Potassium 2.2 L* D 2.5 L* 2.9 L* Carbon Dioxide 33 H 33 H 34 H BUN 49 H 45 H 41 H Creatinine 1.27 1.06 0.97 Calcium 10.8 H D 10.7 H 10.8 H Hematology 01/06/25 01/07/25 12:50 06:00 WBC 10.1 9.1 Hgb 8.8 L 8.5 L Plt Count 299 D 268 Urinalysis 01/06/25 17:45 Urine Color Yellow Urine Appearance Clear Urine pH 7.5 Ur Specific [place] 1.010 Urine Protein 30 (1+) H Urine Glucose (UA) Negative Urine Ketones Negative Urine Blood Small (1+) H Urine Nitrite Negative Ur Leukocyte Esterase Negative Urine RBC 6-10 H Urine WBC 0-5 Ur Squamous Epith Cells 0-2 Hyaline Casts 0-2 Assessment and Plan (1) KEN (acute kidney injury): Status: Acute (2) Hypokalemia: Status: Acute (3) Acute hyponatremia: Status: Acute (4) Metabolic alkalosis: Status: Acute Plan KEN likely pre-renal injury from hypovolemia- resolved. hyponatremia, and metabolic alkalosis with hypokalemia likely secondary to residual effects of metolazone- continue to hold diuretics recommend NS at 50mL/hr to help correct alkalosis recommend free water restriction (other fluids with electrolytes ok) continue to replace potassium as needed. monitor daily renal function and electrolyte studies avoid nephrotoxins Discussed with Dr Zapata Procedures Date of Service Date of Service: 01/07/25
--- NOTE | 2025-01-07 12:47 | MHC.CM.PN ---
IMM 01/07/25, EMR REVIEWED, PT W/KEN/ELECTROLYTE IMBALANCE, CM MET W/PT AND ONE OF PT'S DTRS AT BEDSIDE, PT'S DTR REPORTS PT RETURNED D/T NEW DIURETICS PRESCRIBED CAUSED DEHYDRATION AND ELECTROLYTE IMBALANCE. PT LIVES W/ AND ONE OF PT'S DTRS LIVES ON , NO DME/SERVICES, PT AND DTR REPORT PT DOES NOT NEED A NURSE HOWEVER PT IS AGREEABLE TO HOME PT AND OT IF RECOMMENDED, REF PLACED TO [facility] PT HAS [facility] MEDICARE. PCP/HCP ON FILE VERIFIED.
[2025-01-07] MEDS: Metoprolol Succinate ER 25 MG TAB.ER.24H PO (18:17)
[2025-01-08] VITALS (7 sets, daily range): BP systolic 110–127; BP diastolic 55–62; PULSE 50–88; RESP 18–20; TEMP 35.9–36.6; O2SAT 95–98
[2025-01-08 07:42] LABS: Anion Gap 10 (12-20); Blood Urea Nitrogen 35 mg/dL (9-16); Calcium 11.1 mg/dL (8.4-10.2); Carbon Dioxide 34 mmol/L (22-29); Chloride 90 mmol/L (96-108); Creatinine Clr Calc Pharmacy 73.6; Estimated Glomerular Filt Rate > 60; Potassium 2.9 mmol/L (3.3-5.1); Sodium 131 mmol/L (135-145)
[2025-01-08] MEDS: Ferrous Sulfate 324 MG TABLET.DR PO ×2 (09:09→17:14)
[2025-01-08] MEDS: Cholecalciferol (Vitamin D3) 10 MCG TABLET PO (09:09)
[2025-01-08] MEDS: Potassium Chloride ER 20 MEQ TAB.ER.PRT 40 MEQ PO ×2 (09:10→20:11)
[2025-01-08] MEDS: 0.9 % Sodium Chloride Flush 3 ML SYRINGE IVFLUSH ×3 (09:28→20:12)
--- NOTE | 2025-01-08 09:29 | P.PNIM_ITS ---
Subjective Subjective Date of Service: 01/08/25 Interval History: f/u on ken, hponatremia, weakness, low potassium with recent increase in diuretics sodium is better, unrofortunately potassium is still low today Physical Exam 2 Vital Signs: Vital Signs: Last Vital Signs Temp 96.6 F L 01/08/25 07:36 Pulse 88 01/08/25 07:36 Resp 18 01/08/25 07:36 BP 112/55 L 01/08/25 07:36 Pulse Ox 96 01/08/25 07:36 O2 Del Method Room Air 01/08/25 07:36 BMI result Body Mass Index 22.2 General: AOx3, no acute distress. Overall appears weak. Mouth: Poor dentition Resp: CTA bilaterally though diminished CVS: S1, S2, RRR GI: +BS, NT, no distention Skin: Warm, dry Neuro: Cranial nerves II-XII grossly intact bilaterally. Motor grossly intact bilaterally Extremities: Trace to 1+ pitting lower leg edema. L>R Psych: Appropriate affect Objective Data Active Medications Acetaminophen (Acetaminophen 325 Mg Tablet) 650 mg PO Q6H PRN PRN Reason: Pain, Mild 1-3,fever,headache Atorvastatin Calcium (Atorvastatin Calcium 40 Mg Tablet) 40 mg PO DAILY@1700 [facility] Last Admin: 01/07/25 18:17 Dose: 40 mg Documented By: PATRICIA Calcium Carbonate (Calcium Carbonate 750 Mg Tab.Chew) 750 mg PO Q4H PRN PRN Reason: Heartburn Digoxin (Digoxin 0.125 Mg Tablet) 0.125 mg PO [facility]; Protocol Last Admin: 01/07/25 10:06 Dose: 0.125 mg Documented By: PATRICIA Fenofibrate (Fenofibrate 160 Mg Tablet) 160 mg PO DAILY@0700 [facility] Last Admin: 01/07/25 09:13 Dose: 160 mg Documented By: PATRICIA Ferrous Sulfate (Ferrous Sulfate 324 Mg Tablet.) 324 mg PO BID@0700,1700 [facility] Last Admin: 01/07/25 18:17 Dose: 324 mg Documented By: PATRICIA Folic Acid (Folic Acid 1 Mg Tablet) 1 mg PO DAILY [facility] Stop: 01/10/25 08:59 Last Admin: 01/07/25 09:13 Dose: 1 mg Documented By: PATRICIA Lorazepam (Lorazepam 1 Mg Tablet) 1 mg PO Q4H PRN PRN Reason: Breakthrough alcohol withdrawa Stop: 01/10/25 22:42 Magnesium Hydroxide (Milk Of Magnesia 30 Ml Oral.Susp) 30 ml PO DAILY PRN PRN Reason: Constipation Melatonin (Melatonin 3 Mg Tablet) 6 mg PO BEDTIME PRN PRN Reason: Insomnia Metoprolol Succinate (Metoprolol Succinate Er 25 Mg Tab.Er.24h) 25 mg PO DAILY@1700 [facility]; Protocol Last Admin: 01/07/25 18:17 Dose: 25 mg Documented By: PATRICIA Midodrine (Midodrine Hcl 2.5 Mg Tablet) 2.5 mg PO TID@0700,1200,1700 [facility] Last Admin: 01/07/25 18:17 Dose: Not Given Documented By: PATRICIA Non-Admin Reason: BP 120/62 Omeprazole (Omeprazole 20 Mg Capsule.Dr) 20 mg PO DAILY@0630 [facility] Last Admin: 01/07/25 09:13 Dose: 20 mg Documented By: PATRICIA Potassium Chloride (Potassium Chloride Er 20 Meq Tab.Er.Prt) 40 meq PO BID [facility] Rivaroxaban (Rivaroxaban 20 Mg Tablet) 20 mg PO DAILY@1700 [facility] Last Admin: 01/07/25 18:17 Dose: 20 mg Documented By: PATRICIA Sodium Chloride (0.9 % Sodium Chloride Flush 3 Ml Syringe) 3 ml IVFLUSH QSHIFT [facility] Last Admin: 01/07/25 19:27 Dose: 3 ml Documented By: NEIL Thiamine HCl (Thiamine Hcl 100 Mg Tablet) 100 mg PO DAILY [facility] Stop: 01/10/25 08:59 Last Admin: 01/07/25 09:13 Dose: 100 mg Documented By: PATRICIA Vitamin D (Cholecalciferol (Vitamin D3) 10 Mcg Tablet) 10 mcg PO DAILY@0700 [facility] Last Admin: 01/07/25 09:13 Dose: 10 mcg Documented By: PATRICIA Labs 01/07/25 06:00 01/09/25 06:55 Labs: Laboratory Results - last 24 hr 01/07/25 01/08/25 01/08/25 17:58 06:49 06:51 Hold Purple Top SEE NOTE Anion Gap 10 L Estim Creat Clear Calc 73.6 Estimated GFR > 60 Random Glucose 104 Calcium 11.1 H Urine Osmolality 306 L Ur Random Sodium < 20.0 Ur Random Chloride < 20.0 Assessment and Plan (1) KEN (acute kidney injury): Status: Acute (2) Acute hyponatremia: Status: Acute (3) Acute hypokalemia: Status: Acute Plan Pt is a 79-year-old male with a PMH significant for?CAD s/p CABG x2 2004, HFrEF (LVEF 40-45%), HFpEF, chronic AFib on Xarelto, anemia, GERD, hx of nasopharyngeal carcinoma, and orthostatic hypotension who presents to the ED with?increased weakness and reported recent 8 lb weight loss after starting new medications. Pt is admitted to the hospital for treatment and further evaluation of KEN and electrolyte abnormalities in the setting of increased diuretic use. KEN , resolved. HypOnatremia d/t diuretics, continue holding diuretics, sodium 131, can dc NS Hypokalemia, likely from diuretics, still 2.9, PO replacement and repeat level tomorrow -Nephrology is following Generalized weakness With recent fall at home Reports feeling unsteady on feet, does not use assistive device at baseline PT recommends home with services HFrEF Not in acute exacerbation Hold diuretics as above we can hold cardiology consult Persistent AFib Continue metoprolol, Xarelto Anemia of chronic disease Appears stable, at baseline Continue iron supplementation GERD Continue omeprazole Full Code DVT Prophylaxis: On Xarelto Quality Stroke Does the patient have a stroke diagnosis?: No VTE Prior VTE?: No VTE Risk Level:: Medical - moderate - high VTE Device Contraindication: Treatment Not Indicated VTE Drug Contraindication: N/A - Med Ordered
[2025-01-08 10:23] LABS: Magnesium 2.1 mg/dL (1.6-2.6)
[2025-01-09 03:09] VITALS: BP 120/60; PULSE 57; RESP 18; TEMP 36.1; O2SAT 97
[2025-01-09] MEDS: Cholecalciferol (Vitamin D3) 10 MCG TABLET PO (06:24)
[2025-01-09] MEDS: Ferrous Sulfate 324 MG TABLET.DR PO (06:24)
[2025-01-09 07:10] VITALS: BP 119/59; PULSE 58; RESP 17; TEMP 36.1; O2SAT 97
[2025-01-09 07:25] LABS: Anion Gap 12 (12-20); Blood Urea Nitrogen 28 mg/dL (9-16); Calcium 11.4 mg/dL (8.4-10.2); Carbon Dioxide 31 mmol/L (22-29); Chloride 93 mmol/L (96-108); Creatinine Clr Calc Pharmacy 77.3; Estimated Glomerular Filt Rate > 60; Potassium 3.8 mmol/L (3.3-5.1); Sodium 132 mmol/L (135-145)
[2025-01-09] MEDS: 0.9 % Sodium Chloride Flush 3 ML SYRINGE IVFLUSH (08:35)
[2025-01-09] MEDS: Potassium Chloride ER 20 MEQ TAB.ER.PRT 40 MEQ PO (08:35)
--- NOTE | 2025-01-09 08:35 | P.DS_ITS ---
DS: Providers Provider Date of Service: 01/09/25 Date of admission: 01/06/25 14:20 Date of discharge: 01/09/25 Primary care physician: Gary Alvarado MD Consults: 01/07/25 07:55 Consult to Nephrology Routine Consulting Provider: [facility] Reason for consultation: hyponatemia 01/07/25 10:00 Consult to Wound Care Routine Reason for consultation: coccyx, open area DS: Diagnosis Discharge Diagnosis (1) KEN (acute kidney injury): Status: Acute (2) Acute hyponatremia: Status: Acute (3) Acute hypokalemia: Status: Acute DS: Summary Hospital Course Hospital Course: Chief Complaint: Weakness Pt is a 79-year-old male with a PMH significant for?CAD s/p CABG x2 2004, HFrEF (LVEF 40-45%), HFpEF, chronic AFib on Xarelto, anemia, GERD, hx of nasopharyngeal carcinoma, and orthostatic hypotension who presents to the ED with?increased weakness and reported recent 8 lb weight loss after starting new medications. Pt was recently discharged from the hospital last month on 12/20 after being admitted for acute on chronic CHF exacerbation. Pt was discharged on his home diuretics and regained almost all of his previous weight back within 2 days. Presented to PCP's office on 12/28 where he was started on metolazone 2.5 mg daily. Was seen a few days later on 12/31 by Cardiology who continue both Bumex and metolazone. Yesterday noticed pt was acting confused from baseline, staring off into space, not answering appropriately. This morning pt appeared unbalanced and had difficulty walking. Pt himself states that he fell a few nights ago, though is unclear about the circumstances. He ?thinks? that he tripped, though may have also had some lightheadedness or dizziness. Currently pt states he feels slightly weak, but otherwise denies any acute medical complaints. No chest pain/pressure, palpitations. Denies fever, chills, nausea, vomiting, abdominal pain. No SOB or difficulty breathing. In the ED pt with soft BP as low as 100/50, vitals otherwise stable and WNL. Labs were significant for sodium 125, potassium 2.2, chloride 81, bicarb 33, creatinine 1.27, BNP 850, and lipase 123. No leukocytosis. Stable normocytic anemia. Pt was treated in the ED with potassium chloride 20 mEq p.o. and 20 meq IV. Pt is admitted to the hospital for treatment and further evaluation of KEN and electrolyte abnormalities in the setting of increased diuretic use. hospital course: s an 80-year-old male with a past medical history significant for CAD s/p CABG x2 (2004), HFrEF (LVEF 40-45%), HFpEF, chronic AFib on Xarelto, anemia, GERD, history of nasopharyngeal carcinoma, and orthostatic hypotension who presents to the ED with increased weakness and a reported 8 lb weight loss after starting new medications. He was admitted for the treatment and further evaluation of KEN and electrolyte abnormalities in the setting of increased diuretic use, with the recent addition of Metolazone 2.5 mg daily. KEN due to overdiuresis: The KEN has resolved. Creatinine was initially 1.27 and has improved to 0.79 after discontinuing the diuretics. HypOnatremia due to diuretics: Sodium improved steadily after holding the diuretics, from an initial value of 125 to 132. Hypokalemia: Chronic hypokalemia exacerbated by increased diuretic use. Initial potassium was 2.2, and after PO and IV potassium replacement, it has gradually increased to a normal level of 3.8. He will continue daily potassium replacement with 20 mEq. Nephrology has been consulted and is following the patient's care. Generalized weakness with recent fall at home: The patient reports feeling unsteady on his feet but does not use an assistive device at baseline. Symptoms were attributed to low potassium and sodium, both of which have improved. Physical therapy is recommended for home with services. HFrEF: The patient is not currently in heart failure. Diuretics have been held, and Bumex will be restarted. Metolazone should only be administered if weight increases by more than 2 lbs over 24 hours, and it should not be given more than 3 times a week. Persistent AFib: Continue metoprolol and Xarelto for rate control and anticoagulation. Anemia of chronic disease: The patient appears stable and at baseline. Continue iron supplementation as usual. GERD: Continue omeprazole for symptom management. Dispo: Home with home services Time Attestation Discharge Coordination Time (in mins): 40 minutes Quality: Safe Use of Opioids Does Pt have an Active Cancer Diagnosis on the Problem List?: No Quality: Stroke Does the patient have a stroke diagnosis?: No Physical Exam Vital Signs: Vital Signs: Last Vital Signs Temp 96.9 F 01/09/25 07:10 Pulse 58 01/09/25 07:10 Resp 17 01/09/25 07:10 BP 119/59 L 01/09/25 07:10 Pulse Ox 97 01/09/25 07:10 O2 Del Method Room Air 01/09/25 07:10 BMI result Body Mass Index 22.2 DS: Data Data Completed and Pending Completed studies during hospitalization [Text1]: Procedures Excision of Stomach, Pylorus, Via Natural or Artificial Opening Endoscopic, Diagnostic (01/17/22) Inspection of Upper Intestinal Tract, Via Natural or Artificial Opening Endoscopic (09/05/23) Transfusion of Nonautologous Red Blood Cells into Peripheral Vein, Percutaneous Approach (01/17/22) Labs on day of discharge: Laboratory Results - last 24 hr 01/08/25 01/09/25 06:51 06:55 Sodium 132 L Potassium 3.8 D Chloride 93 L Carbon Dioxide 31 H Anion Gap 12 BUN 28 H Creatinine 0.79 Estim Creat Clear Calc 77.3 Estimated GFR > 60 Random Glucose 110 Calcium 11.4 H Magnesium 2.1 Discharge Plan Discharge Anticipated Discharge Date/Time: 01/09/25 08:37 Patient Disposition: Home Health Service Discharge Diagnosis: Hyponatremia, hyponatremia and KEN Referrals: [facility] [Outside] - 1 Week Gary Alvarado MD [Primary Care Provider, Internal Medicine] - 1 Week Discharge Medications: Continued bumetanide 2 mg tablet 2 mg PO BID@0700,1700 90 Days Qty: 180 3RF fenofibrate nanocrystallized 145 mg tablet 145 mg PO DAILY@0700 atorvastatin 40 mg tablet 40 mg PO DAILY@1700 midodrine 2.5 mg tablet 2.5 mg PO TID@0700,1200,1700 metoprolol succinate 25 mg tablet extended release 24 hr 25 mg PO DAILY@1700 Xarelto 20 mg tablet 20 mg PO DAILY@1700 potassium chloride 20 mEq tablet extended release 20 meq PO DAILY@0700 ferrous sulfate 325 mg (65 mg iron) tablet 325 mg PO BID@0700,1700 omeprazole 20 mg capsule,delayed release(DR/EC) 20 mg PO DAILY@0630 cholecalciferol (vitamin D3) 10 mcg (400 unit) Tablet 10 mcg PO DAILY@0700 PreserVision AREDS-2 250-90-40-1 mg Capsule 1 tab PO BID@1200,1700 dutasteride [Avodart] 0.5 mg capsule 0.5 mg PO DAILY@1700 digoxin 125 mcg (0.125 mg) tablet 125 mcg PO SUMOTUTHFR Rx Instructions: non on WED and SAT Changed metolazone 2.5 mg tablet 2.5 mg PO MOWEFR PRN (Reason: Increased weight) Qty: 30 0RF Rx Instructions: If your weight goes up by 2 Ibs in 24 hours Discharge Orders: Discharge Order (Routine); Ordered 01/09/25 Ordered By: Ovidio Hagan Diet: Advance to usual diet Activity on Discharge: As tolerated Stand Alone Forms: Patient Portal Discharge page Print Language: Bhutanese Care Plan Goals: recovery from hyponatremia, hypokalemia Health Concerns: hypokalemia (low potassium), hyponatremia (low sodium) Plan of Treatment: continue taking your medication as before Do not take Metalozone unless your goes up by 2 Ib in a day and it should not be taking more than 3 times a day weight yourself daily, avoid too much fluid, no more than 1200 cc an day Assessment: see above Discharge Date/Time: 01/09/25 12:08
--- NOTE | 2025-01-09 09:24 | P.F2F_ITS ---
Service Date Service Date: 01/09/25 Encounter Date of encounter: 01/09/25 Reasons for Services Signs and symptoms assessed: Weakness Reason for custodial: medication management, medication treatment and teach disease management Reason for physical therapy: therapeutic exercises and energy conservation Homebound: Leaving the home is medically contraindicated at this time without the asist of a device and/or another person due th the listed conditions above and below. Reason homebound: fall risk related to blood pressure changes, weakness related to hospital stay and unable to drive Homebound supporting statement: Homebound due to weakness, recent falls, low sodium and low potassium from medication adjustment and therefore needs the assistance of another person Certification: Based on the above findings, I certify that this patient is confined to the home and needs intermittent custodial care, physical therapy and/or speech therapy, or continues to need occupational therapy. The patient is under my care, and I have initiated the establishment of the plan of care. The patient will be followed by a physician who will periodically review the plan of care. Time Spent With Patient Time: Total time managing care of this patient today ____ minutes.
--- NOTE | 2025-01-09 10:19 | MHC.CM.PN ---
IMM 01/07/25 Patient is discharge to home today. Home services have been ordered. [facility] has accepted the patient. Patient has arranged for a family member to provide transportation home.
== END 2025-01-09 12:08 | disposition home health service (06) | DRG 683 ==
LOC: HO.ED 14:15 → HO.EDOVER 14:20 → HO.IMC 19:11
PROVIDERS: Nurse Practitioner Family; Physician Assistant; Admitting Provider Student in an Organized Health Care Education/Training Program; Emergency Provider Emergency Medicine Emergency Medical Services; PCP Internal Medicine; Visit Provider Internal Medicine
DX: N17.9 Acute kidney failure, unspecified (principal); E87.3 Alkalosis; I50.22 Chronic systolic (congestive) heart failure; I48.19 Other persistent atrial fibrillation; D63.8 Anemia in other chronic diseases classified elsewhere; E87.6 Hypokalemia; I25.10 Atherosclerotic heart disease of native coronary artery without angina pectoris; T50.2X5A Adverse effect of carbonic-anhydrase inhibitors, benzothiadiazides and other diuretics, initial encounter; Z95.1 Presence of aortocoronary bypass graft; Z87.891 Personal history of nicotine dependence; Z91.81 History of falling; Z79.02 Long term (current) use of antithrombotics/antiplatelets; Z79.899 Other long term (current) drug therapy
CPT/HCPCS: 36415; 80048; 80053; 81001; 82436; 83690; 83735; 83880; 83935; 84300; 85025; 85027; 93005; 97162; 99285; J3480

== ENCOUNTER → 2025-01-06 12:46 | Outpatient (BNV) | payer MEDICARE, SELFPAY | PROVIDERS: Admitting Provider Student in an Organized Health Care Education/Training Program; Emergency Provider Emergency Medicine Emergency Medical Services; PCP Internal Medicine; Visit Provider Internal Medicine Cardiovascular Disease | DX: I48.91 Unspecified atrial fibrillation (principal); I45.2 Bifascicular block | CPT/HCPCS: 93010 ==

== ENCOUNTER → 2025-01-06 14:20 | Outpatient (BNV) | payer MEDICARE, SELFPAY | PROVIDERS: Admitting Provider Student in an Organized Health Care Education/Training Program; Emergency Provider Emergency Medicine Emergency Medical Services; PCP Internal Medicine; Visit Provider Student in an Organized Health Care Education/Training Program | DX: N17.9 Acute kidney failure, unspecified (principal); E87.1 Hypo-osmolality and hyponatremia; E87.6 Hypokalemia | CPT/HCPCS: 99223; 99232; 99239; G0180 ==

== ENCOUNTER → 2025-01-06 14:20 | Outpatient (BNV) | payer MEDICARE, SELFPAY | PROVIDERS: Admitting Provider Student in an Organized Health Care Education/Training Program; Emergency Provider Emergency Medicine Emergency Medical Services; PCP Internal Medicine; Visit Provider Nurse Practitioner Family | DX: N17.9 Acute kidney failure, unspecified (principal); E87.6 Hypokalemia; E87.1 Hypo-osmolality and hyponatremia; E87.3 Alkalosis | CPT/HCPCS: 99222 ==

== ENCOUNTER 2025-01-18 10:52 | Outpatient (AMB) | payer MEDICARE, SELFPAY ==
--- NOTE | 2025-01-18 11:20 | A.OFFPC_ITS ---
Vital Signs 01/18/25 11:21 Height 5 ft 11 in Weight 144 lb BMI 20.1 BP 116/68 Blood Pressure Location Lt brachial Position Sitting Pulse 66 Pulse Source Pulse Oximeter Temp 97.8 F Temp Source Axillary Pulse Oximetry (%) 95 Oxygen Delivery Method Room Air Intake Visit Reasons: admitted 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: No Accompanied by: Spouse Allergies hydromorphone (From Dilaudid) Adverse Reaction (Verified 01/18/25 11:23) Confusion Tobacco use date assessed: 01/18/25 Fall risk assessment: 1 Fall in past year Last assessed Fall Risk: 01/18/25 Dental Screening Dental Screen Date: 01/18/25 Did you have a dental visit in the last 12 months?: Yes Did you have a dental problem in the last 6 months where you did not have access to dental care?: No PFSH Medical History Metabolic alkalosis Gastritis Gross hematuria Chronic atrial fibrillation (HFpEF) heart failure with preserved ejection fraction Low blood pressure Anemia Acute congestive heart failure Acute upper gastrointestinal bleeding Acute blood loss anemia COPD (chronic obstructive pulmonary disease) Hyperlipidemia Afib Nasal sinus tumor CAD (coronary artery disease) Surgical History Hx of CABG Family History Mother No problems noted. Father No problems noted. Social History Household Members: Spouse Housing: House Do you presently have visiting nurse or other home services: Yes Alcohol intake: current Alcohol intake frequency: a few times a week Alcohol type: beer Comment: Patient reports 3 beers in the afternoon and 1 mixed drink before bed, bon Patient Tobacco Use Status: Former Tobacco user Tobacco use type: Cigar e-Cigarette/Vaping Use: Former Use Advance Directives Date on File: 02/16/22 service: No Current occupational status: retired Cognitive needs: Yes (walker) Hearing needs: No Vision needs: Yes (rx glasses) Questionnaire PHQ-9 Over the last 2 weeks, how often have you been bothered by any of the following problems? 1. Little interest or pleasure in doing things: not at all 2. Feeling down, depressed, or hopeless: several days 3. Trouble falling or staying asleep, or sleeping too much: not at all 4. Feeling tired or having little energy: not at all 5. Poor appetite or overeating: not at all 6. Feeling bad about yourself - or that you are a failure or have let yourself or your family down: not at all 7. Trouble concentrating on things, such as reading the newspaper or watching television: not at all 8. Moving or speaking so slowly that other people could have noticed. Or the opposite - being so fidgety or restless that you have been moving around a lot more than usual: not at all 9. Thoughts that you would be better off or of hurting yourself in some way: not at all Total score: 1 Source: Developed by Drs. Homer Ash, Leela Torre, Kota Ann and colleagues, with an educational annika from [employer]. Thrive Questionnaire Date Thrive assessed: 01/18/25 I am a: Patient Within the past 12 months, did the food you bought not last and you didn't have the money to get more?: Never true Within the past 12 months, did you worry whether your food would run out before you got money to buy more?: Never true Do you have trouble paying for medicines?: No Do you have trouble getting transportation to medical appointments?: No Do you have trouble paying your heating and electricity bill?: No Do you have trouble taking care of your child, family member or friend?: No Do you have trouble with day-to-day activities such as bathing, preparing meals, shopping, managing finances, etc.?: No Are you currently unemployed and looking for a job?: No Are you interested in more education?: No THRIVE Score: 0 AUDIT C Alcohol Use Questionnaire (AUDIT-C) 1. How often do you have a drink containing alcohol?: Never 3. How often do you have six or more drinks on one occasion?: Never Total Score: 0 ASHLEY-7 AMB Questionnaire ASHLEY-7 Date ASHLEY - 7 assessed: 01/18/25 Feeling nervous, anxious, or on edge: 1 = Several days Not being able to stop or control worryin = Not at all Worrying too much about different things: 0 = Not at all Trouble relaxin = Not at all Being so restless that it is hard to sit still: 0 = Not at all Becoming easily annoyed or irritable: 0 = Not at all Feeling afraid as if something awful might happen: 0 = Not at all Total ASHLEY-7 score (0-4 normal; 5-9 mild; 10-14 moderate; 15-21 severe): 1 Source: Developed by Drs. Homer Ash, Leela Torre, Kota Ann and colleagues, with an educational annika from [employer]. Physical exam (Primary Care) Vital Signs: Last Vital Signs Temp 97.8 F 01/18/25 11:21 Pulse 66 01/18/25 11:21 BP 116/68 01/18/25 11:21 Pulse Ox 95 01/18/25 11:21 Oxygen Delivery Method Room Air 01/18/25 11:21 BMI result Body Mass Index 20.1 Tobacco/Smoking Status: Tobacco use Status Tobacco use date assessed 01/18/25 01/18/25 11:27 Patient Tobacco Use Status Former Tobacco user 01/18/25 11:27 Tobacco use type Cigar 01/18/25 11:27 e-Cigarette/Vaping Use Former Use 01/18/25 11:27 PHQ-9: PHQ-9 Score PHQ-9: Total score 1 01/18/25 11:27 Thrive Assessment: Date of Thrive Assessment Date Thrive assessed 01/18/25 01/18/25 11:27 Coding Level of Care Code Est Pt Level 4 (57152) Complex EM visit Add On G2211 Diagnoses Decompensated heart failure I50.9 Assessment & Plan Assessment & Plan (1) Decompensated heart failure: Code(s): I50.9 - Heart failure, unspecified Category: Medical Plan: History of Present Illness - The patient is a 79-year-old male presenting with follow-up for hypokalemia and anemia management. - Hypokalemia was initially noted with a potassium level of 2.2 mmol/L, which has since improved to 3.5 mmol/L following treatment. - Anemia is being monitored with recent hemoglobin levels at 8 g/dL, which is stable compared to previous measurements. - The patient has been receiving physical therapy and occupational therapy at home, with noted improvement in muscle strength. - Edema is being managed by elevating the feet, and the patient is currently on Bumex for fluid management. Social History - Family support: The patient has three daughters who assist with care. Review of Systems - Cardiovascular: Denies chest pain or orthopnea. - Respiratory: Denies dyspnea, reports oxygen saturation in the mid-90s without supplemental oxygen. - Neurological: Reports occasional anxiety and cognitive fluctuations. Physical Exam General: Cooperative and healthy appearing Nutritional Appearance: Well nourished Orientation/consciousness: Patient oriented x3 Limitations: No limitations Head: Normal to inspection General: Appearance normal, both eyes and all related structures Neck: Normal visual inspection Chest: Normal palpation of entire chest wall Respiratory: Breathing is okay, no oxygen needed, mid 90s saturation, 97 even sometimes. ormal respiratory effort Neurology: Patient oriented x3, but sometimes gets very anxious. Results - Labs: Potassium level improved from 2.2 mmol/L to 3.5 mmol/L. - Labs: Hemoglobin stable at 8 g/dL. Plan 1. Hypokalemia - Continue monitoring potassium levels and adjust treatment as necessary. 2. Anemia - Monitor hemoglobin levels and consider further hematology consultation if levels drop. 3. Congestive Heart Failure - Continue Bumex for fluid management and elevate feet to reduce swelling. Discussion Notes The patient was advised to continue monitoring potassium and hemoglobin levels, with adjustments to treatment as necessary. The importance of maintaining fluid management through Bumex and foot elevation was emphasized. Follow-up with hematology was suggested if anemia worsens. Patient Instructions - Continue taking Bumex as prescribed. - Elevate feet to help reduce swelling. - Monitor potassium and hemoglobin levels regularly. - Follow up with hematology if anemia symptoms worsen.
[2025-01-18 11:21] VITALS: BP 116/68; PULSE 66; TEMP 36.6; O2SAT 95; BMI 20.1
--- OUTSIDE RECORDS SUMMARY | 2025-01-18 11:50 | XMS_ITS | Clinical Summary ---
Author Organization [facility] [address] Address [address] [place] [address] Phone Care Team Providers Care Time Motion Analyst Name Role Phone Darek Ronquillo MD Primary Care Provider [phone] Allergies Active Allergy Reactions Criticality Noted Date [...] Do not crush, chew, or split. Active zd-rjv-BF-vit M-pkghet-bhiejjc (PreserVision AREDS 2 Plus MV) 200 mcg-15 [...] thoracentesis. 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 He is currently on Bumex. His preference is to follow-up with his newspaper reporter [facility] I will make sure to send [...] general and how their size, shape, and private branch exchange service advisor time affect her level of suspicion for [...] general and how their size, shape, and private branch exchange service advisor time affect her level of suspicion for [...] follow-up on pleural effusion. Ascending aortic aneurysm ([facility] V24) 06/12/20 Overview (08/10/2024): Last [...] will continue to monitor this. Aortic aneurysm ([facility] V24) 12/21/2020 Overview (08/10/2024): Last Assessment & Plan: sinus of Valsalva 4.3 cm, ascending aorta 4.5 cm, transverse aorta at 4.5 cm. Blood pressure is stable. Continue metoprolol. We will continue to monitor yearly. Chronic atrial fibrillation ([facility] V24, [facility] V28) 12/21/2020 Overview (08/10/2024): Last Assessment & Plan: He presents in a rate controlled atrial fibrillation. He will continue metoprolol and diltiazem at current doses. His IUB5OB2-QPTw score is elevated at 5(age, CHF, HTN, [...] Continue regimen as above. Peripheral vascular disease ([facility] V24) 2020 Overview (08/10/2024): Last [...] HISTORICAL CABG OTHER SURGICAL HISTORY 11/15/2023 PROCEDURE: WA BRONCHOSCOPY W/CPTR-ASST IMAGE-GUIDED NAVIGATION; COMMENT: Kyle Bronch/EBUS with Biopsies Medical History Medical History Date Comments Atrial fibrillation ([facility] V24, [facility] V28) 09/30/2023 DX:Atrial fibrillation (HCC) Anemia 09/30/2023 DX:Anemia Mixed hyperlipidemia 09/30/2023 DX:Mixed hy perlipidemia Peripheral vascular disease ([facility] V24) 09/30/2023 DX:Peripheral vascular disea se ([facility]) COPD (chronic obstructive pu lmonary disease) ([facility] V24, [facility] V28) 09/30/2023 DX:COPD (chronic o bstructive pulmonary disease) ([facility]) Essential (primary) hypertension 09/30/2023 DX:Essential [...] polyps Thoracic aortic aneurysm wit hout rupture ([facility] V24) DX:Thoracic aortic aneurysm without rupture (HCC) Basal cell carcinoma of skin , unspecified DX:Basal cell carcinoma of s kin, unspecified Vitamin D deficiency DX:Vitamin D deficiency Paroxysmal atrial fibrillati on ([facility] V24, [facility] V28) DX:Paroxysmal atrial fibril lation (HCC) Encounter for screening for malignant neoplasm of rectum DX:Encounter for screening f or malignant neoplasm of rectum Personal history of nicotine dependence DX:Personal history of nicot ine dependence Chronic diastolic (congestiv e) heart failure ([facility] V24, [facility] V28) DX:Chronic diastoli c (congestive) heart failure (HCC) Pulmonary emphysema ([facility] V24, [facility] V28) DX:Pulmonary emphysema (HCC) Family [...] 09/03/2020, Additional history exists Influenza Vaccine (#1) 2025 04/19/2021, 2018 HIB Vaccines Aged Out No [...] [employer] [address] [place] [address] Care Teams Time Motion Analyst Relationship Specialty Start Date End Date Darek Ronquillo MD [address] [place] [address] Dr Navdeep [place] PCP - General 03/01/08
--- OUTSIDE RECORDS SUMMARY | 2025-01-18 11:50 | XMS_ITS | Patient Health Record ---
Author Organization [facility] Address [address] [place] [address] Care Team Providers Care Lock Maintenance Supervisor Name Role Phone Darek Ronquillo MD [...] Problem Status W/U Status Risk Notes Problem [id number] Heme positive stool (R19.5) Active confirmed Problem Gastritis (3126712) Gastritis (K29.70) Active confirmed Problem [id number] Anemia, unspecified type (D64.9) Active confirmed Vital Signs Temperature 97.5 degrees Fahrenheit 08/10/2024 Blood pressure diastolic 00 mm Hg 08/10/2024 Height 5 ft 11 in in 08/10/2024 Blood pressure systolic 000 mm Hg 08/10/2024 Weight 180 lbs 08/10/2024 BMI 25.10 kg/m2 08/10/2024 Procedures Procedure Date Ordered Date Performed Result Body Sit e VIDEO CAPSULE ENDOSCOPY 10/06/2024 N/A Encounters Encounter Location Date Provider Diagnosis [facility] [address] [place] [address] 08/10/2024 Soren Boothe Jr Anemia, unspecified type D64.9 [facility] [address] [place] [address] 08/04/2024 Soren Boothe Jr [facility] [address] [place] [address] 10/06/2024 Soren Boothe Jr Anemia, unspecified type D64.9 and Heme positive stool R19.5 [facility] [address] [place] [address] 11/05/2024 Soren Boothe Jr Assessments Encounter Date [...] Name:Sorenbettina wadsworth Jr, 01/25/2025 01:35:00 PM, [address], [address], [place], [address], Insurance Providers Payer Name Payer Address Payer Phone Subscriber Number Group Number Insured Name Patient Relationship to Insured Coverage Start Date Coverage End Date [facility] [address] [place] [phone] [id number] STEFFEN ANTHONY Self - patient is the insured Medical (General) History Medical History History ICD Code Hypotension Coronary artery disease with heart failu re/preserved ejection fraction Atrial fibrillation Anemia Right maxillary sinus tumor, surgery at [facility] General Surgical History Surgery Date(Month/Year) Coronary artery bypass grafting
== END 2025-01-18 11:47 | disposition home or self-care (01) ==
LOC: HO.HMCHD 10:52
PROVIDERS: PCP Internal Medicine; Visit Provider Internal Medicine
DX: I50.9 Heart failure, unspecified (principal)

== ENCOUNTER → 2025-01-18 10:52 | Outpatient (BNVA) | payer MEDICARE, SELFPAY | PROVIDERS: PCP Internal Medicine; Visit Provider Internal Medicine | DX: I50.9 Heart failure, unspecified (principal); E87.6 Hypokalemia; D64.9 Anemia, unspecified; Z13.30 Encounter for screening examination for mental health and behavioral disorders, unspecified; Z13.39 Encounter for screening examination for other mental health and behavioral disorders | CPT/HCPCS: 96127; 99212 ==

== ENCOUNTER 2025-01-29 12:51 | Outpatient (AMB) | payer MEDICARE, SELFPAY ==
--- OUTSIDE RECORDS SUMMARY | 2025-01-29 12:53 | XMS_ITS | Clinical Summary ---
Author Organization [facility] [address] [facility] Address [address] [place] [address] Phone Care Team Providers Care Meat Carrier Name Role Phone Daerk Ronquillo MD Primary Care Provider [phone] Allergies Active Allergy Reactions Criticality Noted Date Comments Hydromorphone 10/02/2023 Medications pseudoephedrine- guaiFENesin (MUCINEX D) 60-600 mg per 12 hr tablet Take by mouth. Acti ve furosemide (LASIX) 40 mg tablet Take 40 [...] Do not crush, chew, or split. Active qv-hsd-AN-vit B-sbhjbq-nrdxuru (PreserVision AREDS 2 Plus MV) 200 mcg-15 [...] thoracentesis. 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 He is currently on Bumex. His preference is to follow-up with his mess attendant crew at [place] and I will make sure to send [...] general and how their size, shape, and changer fixer time affect her level of suspicion for [...] general and how their size, shape, and changer fixer time affect her level of suspicion for [...] follow-up on pleural effusion. Ascending aortic aneurysm ([facility] V24) 06/12/20 Overview (08/10/2024): Last Assessment & [...] will continue to monitor this. Aortic aneurysm ([facility] V24) 12/21/2020 Overview (08/10/2024): Last Assessment & Plan: sinus of Valsalva 4.3 cm, ascending aorta 4.5 cm, transverse aorta at 4.5 cm. Blood pressure is stable. Continue metoprolol. We will continue to monitor yearly. Chronic atrial fibrillation ([facility] V24, [facility] V28) 12/21/2020 Overview (08/10/2024): Last Assessment & Plan: He presents in a rate controlled atrial fibrillation. He will continue metoprolol and diltiazem at current doses. His [id number] score is elevated at 5(age, CHF, HTN, [...] Continue regimen as above. Peripheral vascular disease ([facility] V24) 2020 Overview (08/10/2024): Last Assessment & [...] HISTORICAL CABG OTHER SURGICAL HISTORY 11/15/2023 PROCEDURE: [place] BRONCHOSCOPY W/CPTR-ASST IMAGE-GUIDED NAVIGATION; COMMENT: Kyle Bronch/EBUS with Biopsies Medical History Medical History Date Comments Atrial fibrillation ([facility] V24, [facility] V28) 09/30/2023 DX:Atrial fibrillation (HCC) Anemia 09/30/2023 DX:Anemia Mixed hyperlipidemia 09/30/2023 DX:Mixed hy perlipidemia Peripheral vascular disease ([facility] V24) 09/30/2023 DX:Peripheral vascular disea se ([facility]) COPD (chronic obstructive pu lmonary disease) ([facility] V24, [facility] V28) 09/30/2023 DX:COPD (chronic o bstructive pulmonary disease) ([facility]) Essential (primary) hypertension 09/30/2023 DX:Essential (primary) hypertension [...] polyps Thoracic aortic aneurysm wit hout rupture ([facility] V24) DX:Thoracic aortic aneurysm without rupture (HCC) Basal cell carcinoma of skin , unspecified DX:Basal cell carcinoma of s kin, unspecified Vitamin D deficiency DX:Vitamin D deficiency Paroxysmal atrial fibrillati on ([facility] V24, [facility] V28) DX:Paroxysmal atrial fibril lation (HCC) Encounter for screening for malignant neoplasm of rectum DX:Encounter for screening f or malignant neoplasm of rectum Personal history of nicotine dependence DX:Personal history of nicot ine dependence Chronic diastolic (congestiv e) heart failure ([facility] V24, [facility] V28) DX:Chronic diastoli c (congestive) heart failure (HCC) Pulmonary emphysema ([facility] V24, [facility] V28) DX:Pulmonary emphysema (HCC) Family History Medical [...] 09/10/2024 10:01 AM EST Plan of Treatment Upcoming Encounters Date Type Department Care Team (Late st Contact Info) Description 02/11/2025 1:30 PM EDT Appointment [facility] CT Scan [address] [place] [phone] 02/15/2025 1:30 PM EDT Office Visit Thoracic Surgery - [place] [address] [facility] [address] [place] [phone] Mamadou Doss MD [address] [address] Health Maintenance Due Date Last Done Comments DTaP,Tdap,and Td Vaccines (1 - Tdap) 1964 Pneumococcal Vaccine: 50+ Years (1 of 2 - PCV) 1964 Zoster Vaccines (1 of 2) 1964 RSV Immunization Adult Patients (1 - 1-dose 75+ series) 2020 Cholesterol Screening (Lipid Panel) 06/06/2022 Falls Risk Assessment 06/06/2022 Hepatitis C Screening 06/06/2022 Medicare Annual Wellness Visit 06/06/2022 Social Influencers of Health Screening 06/06/2022 Hypertension/CHF/CAD Annual BMP Blood Test 01/01/2023 01/01/2022 COVID-19 Vaccine ( season) 2024 05/03/2023, 04/11/2021, 09/03/2020, Additional history exists Depression Screening 07/08/2024 Influenza Vaccine (#1) 2025 04/19/2021, 2018 HIB [...] Annual BMP Blood Test abstracted Historical Provider MD HEALTH MAINTENANCE Final Result from Last 3 Months or Most Recently Relevant to Health Maintenance Insurance [employer] [place] [address] Care Teams Meat Carrier Relationship Specialty Start Date End Date Darek Ronquillo MD [address] [place] [address] Dr [address] [place] PCP - General 03/01/08
--- OUTSIDE RECORDS SUMMARY | 2025-01-29 12:53 | XMS_ITS | Patient Health Record ---
Author Organization [facility] Address [address] [place] [address] Care Team Providers Care Family Dentist Name Role Phone Shima (RETIRED) Darek REHMAN Primary Care Provide r Soren Jacob Jr Unavailable [phone] Allergies No Known Allergies Reason For [...] Problem Status W/U Status Risk Notes Problem [id number] Heme positive stool (R19.5) Active confirmed Problem Gastritis (8178820) Gastritis (K29.70) Active confirmed Problem 829488881 Anemia, unspecified type (D64.9) Active confirmed Vital Signs Temperature 97.5 degrees Fahrenheit 08/10/2024 Blood pressure diastolic 00 mm Hg 08/10/2024 Height 5 ft 11 in in 08/10/2024 Blood pressure systolic 000 mm Hg 08/10/2024 Weight 180 lbs 08/10/2024 BMI 25.10 kg/m2 08/10/2024 Procedures Procedure Date Ordered Date Performed Result Body Sit e VIDEO CAPSULE ENDOSCOPY 10/06/2024 N/A Encounters Encounter Location Date Provider Diagnosis [facility] [address] [place] [phone] 08/10/2024 Soren Boothe Jr Anemia, unspecified type D64.9 [facility] [address] [place] [phone] 08/04/2024 Soren Boothe Jr [facility] [address] [place] [phone] 10/06/2024 Soren Boothe Jr Anemia, unspecified type D64.9 and Heme positive stool R19.5 [facility] [address] [place] [phone] 11/05/2024 Soren Boothe Jr [facility] [address] [place] [phone] 01/18/2025 Soren Boothe Jr Assessments Encounter Date Diagnosis [...] Insured Coverage Start Date Coverage End Date [facility] [address] [address] [place] [address] [id number] STEFFEN ANTHONY Self - patient is the insured Medical (General) History Medical History History ICD Code Hypotension Coronary artery disease with heart failu re/preserved ejection fraction Atrial fibrillation Anemia Right maxillary sinus tumor, surgery at [facility] General Surgical History Surgery Date(Month/Year) Coronary artery bypass grafting
--- OUTSIDE RECORDS SUMMARY | 2025-01-29 12:53 | XMS_ITS | Patient Health Record ---
Author Organization [facility] Address [address] [facility] [address] Care Team Providers Care X Ray Technician Name Role Phone ChristianoGary Primary Care Provider Ariadne Long [phone] Allergies Allergen (clinical drug ingredient) Drug/Non Drug Allergy documented on EMR Reaction Allergy Type Onset Date Status hydromorphone Dilaudid hallucinations Drug Allergy Active tramadol traMADol HCl hallucinations Drug Allergy Active Reason For Referral No Information Medications Medication SIG (Take, Route, Frequency, Duration) Notes Start Date End Date Status Amiodarone HCl 200 MG 1 tablet Orally On ce a day; Duration: 30 day(s) Active Ferrous Sulfate 325 (65 Fe) MG 1 tablet Orally Once a day; Duration: 30 day(s) Active Fenofibrate 145 MG 1 tablet Orally Once a day; Duration: 30 day(s) Active Dutasteride 0.5 MG 1 capsule Orally Onc e a day; Duration: 30 day(s) Active Vitamin D3 Active Xarelto 20 MG 1 tablet with food Orally Once a day; Duration: 30 day(s) Active Omeprazole [...] as needed Orally every 4 hrs Active Immunizations Vaccine Route Administration Date Status Comme nts Influenza Unknown 03/08/2024 Administered Social History Tobacco Use: Social History [...] (Standard) Question Answer Notes Tobacco use: Nonsmoker AUDIT-C (Standard) Question Answer Notes Did you have a drink containing alcohol in the p ast year? No Points 0 Interpretation Negative Problems Problem Type SNOMED Code ICD Code Onset Dates Problem Status W/U Status Risk Notes Problem Bilateral atherosclerosis of arteries of lower limbs (disorder) (12440048573785541 ) Atherosclerosis of artery of both lower extremities (I70.203) Active confirmed Problem Ulcer of left heel (disorder) (31331570246218082 ) Skin ulcer of left heel, limited to breakdown of skin (L97.421) Active confirmed Vital Signs Blood pressure diastolic 60 mm Hg 01/26/2025 Height 5 ft 11 in in 01/26/2025 Blood pressure systolic 120 mm Hg 01/26/2025 Weight 176 lbs 01/26/2025 BMI 24.54 kg/m2 01/26/2025 Encounters Encounter Location Date Provider Diagnosis [address] [phone] 02/25/2024 Ariadne Perica Atherosclerosis of artery of both lower extremities I70.[address] [address] 04/29/2024 Ariadne Perica Atherosclerosis of artery of both lower extremities I70.[address] [address] 07/21/2024 Ariadne Perica Atherosclerosis of artery of both lower extremities I70.[address] [place] [place] [address] 10/21/2024 Ariadne Long Atherosclerosis of artery of both lower extremities I70.203 [facility] [place] [address] [place] [address] 01/26/2025 Ariadne Long Atherosclerosis of artery of both [...] of both lower extremities (ICD-10 - I70.203) 01/26/2025 Atherosclerosis of artery of both lower extremities (ICD-10 - I70.203) Plan Of Treatment Next Appt Details Provider Name:Ariadne Arreaga Birttany msita, 05/04/2025 11:15:00 AM, [address] [place] [address], [phone], Insurance Providers Payer Name Payer Address Payer Phone Subscriber Number Group Number Insured Name Patient Relationship to Insured Coverage Start Date Coverage End Date [facility] [address] [place] [address] [id number] Hector Diaz Self - patient is the [...] 04/09/2022 left leg bypass graft 07/04/2022, 2021 Hospitalization History Reason Date(Month/Year) felt sick, stayed over night 12/30
--- OUTSIDE RECORDS SUMMARY | 2025-01-29 12:53 | XMS_ITS | Encounter Summary ---
Author Organization [facility] Address [address] [facility] [address] [place] [address] Phone Care Team Providers Care Reeling Machine Setup Operator Name Role Phone Unknown, Unknown Primary Care Provider Gurmeet gutierrez Pcp, Not Required Primary Care Provider Darek Monson MD Primary Care Provider Encounter Details Date Type Department Care Team (Late st Contact Info) Description 09/26/2020 Procedure Pass [facility] [address] [place] [address] Social History Tobacco Use Types Packs/Day Years Used Date Smoking Tobacco: Former Smokeless Tobacco: Former Alcohol Use Standard Drinks/Week Comments Yes 0 (1 standard drink = 0.6 oz pur e alcohol) Sex and Gender Information Value Date Recorded Sex Assigned at Not on file Legal Sex Male 11:33 AM EST Gender Identity Not on file Sexual Orientation Not on file documented as of this encounter Plan of Treatment Not on file documented as of this encounter Visit Diagnoses Not on filedocumented in this encounter Care Teams Reeling Machine Setup Operator Relationship Specialty Start Date End Date Unknown, Unknown, MD PCP - General 08/30/20 11/13/20 Pcp, Not Required [address] [place] [address] PCP - General 11/14/20 01/19/21 Darek Ronquillo MD [address] [place] [address] Dr RIVAS [place] [id number] PCP - General Internal Medicine 01/20/21 documented as of this encounter Additional Source Comments The information contained in this document represents components of the legal health record. It is not the complete legal health record.[facility]
--- NOTE | 2025-01-29 13:09 | MHC.OFFVIS ---
Vital Signs 01/29/25 13:10 Height 5 ft 11 in Weight 141 lb 1.533 oz BMI 19.7 BP 118/62 Blood Pressure Location Lt brachial Position Sitting Pulse 76 Intake Visit Reasons: 3-4 wk follow up Intake Note: Follow-up hearts doing ok Firewood Cutter Required: No Hematology Nurse Educator: Hematology Nurse Educator Present Accompanied by: Spouse Allergies hydromorphone (From Dilaudid) Adverse Reaction (Verified 01/18/25 11:23) Confusion Medication List - Last Reconciled 01/29/25 by Sj Key NP atorvastatin 40 mg PO DAILY@1700 bumetanide 2 mg PO BID@0700,1700 90 days cholecalciferol (vitamin D3) 10 mcg PO DAILY@0700 digoxin 125 mcg PO SUMOTUTHFR dutasteride (Avodart) 0.5 mg PO DAILY@1700 fenofibrate nanocrystallized 145 mg PO DAILY@0700 ferrous sulfate 325 mg PO BID@0700,1700 metolazone 2.5 mg PO MOWEFR PRN metoprolol succinate ER 25 mg PO DAILY@1700 midodrine 2.5 mg PO TID@0700,1200,1700 omeprazole 20 mg PO DAILY@0630 potassium chloride ER 20 mEq PO DAILY@0700 rivaroxaban (Xarelto) 20 mg PO DAILY@1700 vit C,N-Ei-lyhlp-lutein-zeaxan 250-90-40-1 mg (PreserVision AREDS-2) 1 tab PO BID@1200,1700 HPI Comments Details: This is a 79-year-old male patient coming in for a follow-up appointment, accompanied by his . Patient with a history of heart failure with preserved ejection fraction, coronary artery disease, femoral bypass graft, COPD, CABG x2 2004, and chronic AFib. Patient has been previously hospitalized for acute on chronic heart failure and COPD exacerbation following which at PCP's office patient was started on metolazone on top of the Bumex therapy. At last visit, patient was taking the metolazone daily and given his ongoing leg swelling patient was advised to continue with it with a repeat in lab work. However patient returned to the hospital within a couple of days due to confusion and KEN. Patient had hypokalemia was treated with IV potassium and was discharged on metolazone as needed only. Today, patient reports feeling better other than his chronic shortness of breath. The notes that swelling in the legs have significantly reduced and now only has some feet edema. Patient has been compliant with all his medications. The states that last week she gave a dose of metolazone for increase in his weight over a week up to 2 lb. Patient has not had any repeat labs since hospital discharge. [facility] Medical History Metabolic alkalosis Gastritis Gross hematuria Chronic atrial fibrillation (HFpEF) heart failure with preserved ejection fraction Low blood pressure Anemia Acute congestive heart failure Acute upper gastrointestinal bleeding Acute blood loss anemia COPD (chronic obstructive pulmonary disease) Hyperlipidemia Afib Nasal sinus tumor CAD (coronary artery disease) Surgical History Hx of CABG Family History Mother No problems noted. Father No problems noted. Social History Household Members: Spouse Housing: House Do you presently have visiting nurse or other home services: Yes Alcohol intake: current Alcohol intake frequency: a few times a week Alcohol type: beer Comment: Patient reports 3 beers in the afternoon and 1 mixed drink before bed, bon Patient Tobacco Use Status: Former Tobacco user Tobacco use type: Cigar e-Cigarette/Vaping Use: Former Use Advance Directives Date on File: 02/16/22 service: No Current occupational status: retired Cognitive needs: Yes (walker) Hearing needs: No Vision needs: Yes (rx glasses) Physical Exam Vital Signs: Last Vital Signs Pulse 76 01/29/25 13:10 BP 118/62 01/29/25 13:10 BMI result Body Mass Index 19.7 Const General: cooperative, comfortable, no acute distress and other (Frail) Orientation/consciousness: patient oriented x3 HEENT Head: Yes normal to inspection Neck Neck: Yes normal visual inspection, Yes trachea midline and Yes supple Chest Chest palpation & inspection: normal inspection of the chest Resp Effort & Inspection: normal respiratory effort Auscultation: clear to auscultation bilaterally, no crackles, no rales, no rhonchi and no wheezes Cardio Jugular venous distension: no JVD Palpation: normal PMI Rate: regular rate Rhythm: regular rhythm Heart sounds: S1 normal heart sound present, S2 normal heart sound present, no click, no gallops, no murmurs and no rubs Peripheral pulses: Peripheral pulses 2+ throughout GI Inspection: Yes normal to inspection Palpation (GI): Soft to palpation Auscultation: normal bowel sounds Skin General skin exam: no rashes or lesions noted Neuro General: patient oriented x3 Extrem General: Yes normal to inspection, No calf tenderness and Yes edema (1+ nonpitting bilateral pedal edema) Psych Appearance: grossly normal Mental Status: mental status grossly normal Speech and movement: Normal speech and movement present Assessment & Plan Assessment & Plan (1) (HFpEF) heart failure with preserved ejection fraction: Code(s): I50.30 - Unspecified diastolic (congestive) heart failure Category: Medical Plan: Recently in the hospital admitted for progressive shortness of breath and fluid overload, had elevated BNP at 730 and was treated with IV diuretics and neb treatments. Was started on metolazone by PCP following this. Patient was continued on this regimen due to his ongoing leg swelling. However, given his recent KEN and hypokalemia as low as 2.2, metolazone was change to as needed only. 12/18/2024-echo study showed decreased LV systolic function with an ejection fraction between 40-45%, severe biatrial enlargement, severe mitral annular calcification with aswmohjm-ze-uqqqus elevation in the right ventricular systolic pressure with elevated right atrial pressures. Today on exam, patient's lower leg edema has significantly improved and only has nonpitting bilateral pedal edema. Per , patient was given a dose of metolazone for increase in weight up to 2 lb over a week. Has not had any repeat blood work since discharge. Continue Bumex therapy. Continue potassium supplement. Advised to only give metolazone sparingly on an as needed basis such as if patient is gaining 3 lb in a day or 5 lb in a week. verbalizes understanding. We will repeat labs today. (2) Afib: Comment: on xarelto Code(s): I48.91 - Unspecified atrial fibrillation Category: Medical Plan: History of chronic AFib on rate control with metoprolol therapy. Patient on Xarelto for full anticoagulation therapy. No reported symptoms of bleeding or falls. Kidney function stable. Continue current regimen. (3) CAD (coronary artery disease): Code(s): I25.10 - Atherosclerotic heart disease of torres martinez coronary artery without angina pectoris Category: Medical Plan: History of CABG in 2004. Currently without any anginal symptoms. Continue current regimen. Continue statin therapy with an LDL goal less than 70. (4) Hospital discharge follow-up: Code(s): Z09 - Encounter for follow-up examination after completed treatment for conditions other than malignant neoplasm Plan: As above. Advised heart healthy diet, exercise as tolerated, med compliance, and management of vascular risk factors. Follow-up in 1 month. In the interim, patient will call the office with any concerns or change in symptoms. This note was generated using voice recognition software. While every effort has been made to ensure accuracy and proper restrike hammer operator, there may be occasional errors that could affect the content or meaning of the described symptoms. Orders: Orders Basic Metabolic Panel Today I50.30 - Unspecified diastolic (congestive) heart failure Medications: Changed From potassium chloride ER 20 mEq PO DAILY@0700 To potassium chloride ER 40 mEq PO DAILY@0700 Coding Level of Care Code Est Pt Level 4 (34026) Complex EM visit Add On G2211 Diagnoses (HFpEF) heart failure with preserved ejection fraction I50.30 Afib I48.91 CAD (coronary artery disease) I25.10 Hospital discharge follow-up Z09 Time Spent (min) 32 Comment Time spent in reviewing the chart, test results, assessment, counseling and documentation.
[2025-01-29 13:10] VITALS: BP 118/62; PULSE 76; BMI 19.7
== END 2025-01-29 13:52 | disposition home or self-care (01) ==
LOC: HO.HCS 12:51
PROVIDERS: PCP Internal Medicine
DX: I50.30 Unspecified diastolic (congestive) heart failure (principal); I48.91 Unspecified atrial fibrillation; I25.10 Atherosclerotic heart disease of native coronary artery without angina pectoris; Z09 Encounter for follow-up examination after completed treatment for conditions other than malignant neoplasm
CPT/HCPCS: 99214; G2211

== ENCOUNTER 2025-01-29 12:51 | Outpatient (REF) | payer MEDICARE, SELFPAY ==
[2025-01-29 14:45] LABS: Anion Gap 12 (12-20); Blood Urea Nitrogen 22 mg/dL (9-16); Calcium 9.6 mg/dL (8.4-10.2); Carbon Dioxide 30 mmol/L (22-29); Chloride 96 mmol/L (96-108); Estimated Glomerular Filt Rate 50; Potassium 3.2 mmol/L (3.3-5.1); Sodium 135 mmol/L (135-145)
== END 2025-01-29 12:52 | disposition home or self-care (01) ==
LOC: HO.LAB 12:51
PROVIDERS: PCP Internal Medicine
DX: I50.30 Unspecified diastolic (congestive) heart failure (principal); N17.9 Acute kidney failure, unspecified; E87.6 Hypokalemia; I48.91 Unspecified atrial fibrillation; I25.10 Atherosclerotic heart disease of native coronary artery without angina pectoris; Z09 Encounter for follow-up examination after completed treatment for conditions other than malignant neoplasm; Z79.899 Other long term (current) drug therapy; Z95.1 Presence of aortocoronary bypass graft
CPT/HCPCS: 36415; 80048; 99212

== ENCOUNTER 2025-02-05 11:43 | Outpatient (REF) | payer MEDICARE, SELFPAY ==
--- OUTSIDE RECORDS SUMMARY | 2025-02-05 11:45 | XMS_ITS | Encounter Summary ---
Author Organization [facility] Address [address] [facility] [address] [place] [address] Phone Care Team Providers Care Boat Deckhand Name Role Phone Unknown, Unknown Primary Care Provider Grumeet gutierrez Pcp, Not Required Primary Care Provider Darek Monson MD Primary Care Provider Encounter Details Date Type Department Care Team (Late st Contact Info) Description 09/26/2020 Procedure Pass [facility] - [facility] [address] [place] [address] Social History Tobacco Use Types Packs/Day Years [...] on filedocumented in this encounter Care Teams Boat Deckhand Relationship Specialty Start Date End Date Unknown, Unknown, MD PCP - General 08/30/20 11/13/20 Pcp, Not Required [address] [place] [id number] PCP - General 11/14/20 01/19/21 Darek Ronquillo MD [address] [place] [address] Dr RIVAS [place] [address] PCP - General Internal Medicine 01/20/21 documented as of this encounter Additional Source Comments The information contained in this document represents components of the legal health record. It is not the complete legal health record.[facility]
--- OUTSIDE RECORDS SUMMARY | 2025-02-05 11:45 | XMS_ITS | Patient Health Record ---
Author Organization [facility] Address [address] [place] [address] Care Team Providers Care Driver'S License Examiner Name Role Phone Shima (RETIRED) Darek REHMAN Primary Care Provide r Soren Jacob Jr Unavailable Allergies No Known Allergies Reason [...] Problem Status W/U Status Risk Notes Problem 60263556 Heme positive stool (R19.5) Active confirmed Problem Gastritis (4508924) Gastritis (K29.70) Active confirmed Problem 951071741 Anemia, unspecified type (D64.9) Active confirmed Vital Signs Temperature 97.5 degrees Fahrenheit 08/10/2024 Blood pressure diastolic 00 mm Hg 08/10/2024 Height 5 ft 11 in in 08/10/2024 Blood pressure systolic 000 mm Hg 08/10/2024 Weight 180 lbs 08/10/2024 BMI 25.10 kg/m2 08/10/2024 Procedures Procedure Date Ordered Date Performed Result Body Sit e VIDEO CAPSULE ENDOSCOPY 10/06/2024 N/A Encounters Encounter Location Date Provider Diagnosis [facility] [address] [place] [phone] 08/10/2024 Soren Boothe Jr Anemia, unspecified type D64.9 [facility] [address] [place] [address] 08/04/2024 Soren Boothe Jr [facility] [address] [place] [address] 10/06/2024 Soren Boothe Jr Anemia, unspecified type D64.9 and Heme positive stool R19.5 [facility] [address] [place] [address] 11/05/2024 Soren Boothe Jr [facility] [address] [place] [address] 01/18/2025 Soren Boothe Jr Assessments Encounter Date [...] Insured Coverage Start Date Coverage End Date [facility] [address] [address] [place] [address] [id number] STEFFEN ANTHONY Self - patient is the insured Medical (General) History Medical History History ICD Code Hypotension Coronary artery disease with heart failu re/preserved ejection fraction Atrial fibrillation Anemia Right maxillary sinus tumor, surgery at [facility] General Surgical History Surgery Date(Month/Year) Coronary artery bypass grafting
--- OUTSIDE RECORDS SUMMARY | 2025-02-05 11:45 | XMS_ITS | Clinical Summary ---
Author Organization [facility] [address] [facility] Address [address] [place] [address] Phone Care Team Providers Care Director Software Quality Assurance Name Role Phone Darek Ronquillo MD Primary Care Provider [phone] Allergies Active Allergy Reactions Criticality Noted Date [...] Do not crush, chew, or split. Active sr-aix-HS-vit R-kphfem-mcvmpus (PreserVision AREDS 2 Plus MV) 200 mcg-15 [...] thoracentesis. Alternatively he could follow-up with his clinical review specialist and see if any adjustments in his medications would simply resolve the problem. He is currently on Bumex. His preference is to follow-up with his clinical review specialist at [facility] and I will make sure to send [...] general and how their size, shape, and supervisor policy change clerks time affect her level of suspicion for [...] general and how their size, shape, and supervisor policy change clerks time affect her level of suspicion for [...] follow-up on pleural effusion. Ascending aortic aneurysm ([facility] V24) 06/12/20 Overview (08/10/2024): Last Assessment & [...] will continue to monitor this. Aortic aneurysm ([facility] V24) 12/21/2020 Overview (08/10/2024): Last Assessment & Plan: sinus of Valsalva 4.3 cm, ascending aorta 4.5 cm, transverse aorta at 4.5 cm. Blood pressure is stable. Continue metoprolol. We will continue to monitor yearly. Chronic atrial fibrillation ([facility] V24, [facility] V28) 12/21/2020 Overview (08/10/2024): Last Assessment & Plan: He presents in a rate controlled atrial fibrillation. He will continue metoprolol and diltiazem at current doses. His [id number] score is elevated at 5(age, CHF, HTN, [...] Continue regimen as above. Peripheral vascular disease ([facility] V24) 2020 Overview (08/10/2024): Last Assessment & [...] HISTORICAL CABG OTHER SURGICAL HISTORY 11/15/2023 PROCEDURE: AR BRONCHOSCOPY W/CPTR-ASST IMAGE-GUIDED NAVIGATION; COMMENT: Kyle Bronch/EBUS with Biopsies Medical History Medical History Date Comments Atrial fibrillation ([facility] V24, [facility] V28) 09/30/2023 DX:Atrial fibrillation (HCC) Anemia 09/30/2023 DX:Anemia Mixed hyperlipidemia 09/30/2023 DX:Mixed hy perlipidemia Peripheral vascular disease ([facility] V24) 09/30/2023 DX:Peripheral vascular disea se ([facility]) COPD (chronic obstructive pu lmonary disease) ([facility] V24, [facility] V28) 09/30/2023 DX:COPD (chronic o bstructive pulmonary disease) ([facility]) Essential (primary) hypertension 09/30/2023 DX:Essential (primary) hypertension [...] polyps Thoracic aortic aneurysm wit hout rupture ([facility] V24) DX:Thoracic aortic aneurysm without rupture (HCC) Basal cell carcinoma of skin , unspecified DX:Basal cell carcinoma of s kin, unspecified Vitamin D deficiency DX:Vitamin D deficiency Paroxysmal atrial fibrillati on ([facility] V24, [facility] V28) DX:Paroxysmal atrial fibril lation (HCC) Encounter for screening for malignant neoplasm of rectum DX:Encounter for screening f or malignant neoplasm of rectum Personal history of nicotine dependence DX:Personal history of nicot ine dependence Chronic diastolic (congestiv e) heart failure ([facility] V24, [facility] V28) DX:Chronic diastoli c (congestive) heart failure (HCC) Pulmonary emphysema ([facility] V24, [facility] V28) DX:Pulmonary emphysema (HCC) Family History Medical [...] Info) Description 02/11/2025 1:30 PM EDT Appointment [facility] CT Scan [address] [place] [phone] 02/15/2025 1:30 PM EDT Office Visit Thoracic Surgery - [place] [address] [facility] [address] [place] [phone] Mamadou Doss MD [address] [address] Health Maintenance Due Date Last Done Comments [...] Maintenance Insurance [employer] [place] [address] Care Teams Director Software Quality Assurance Relationship Specialty Start Date End Date Darek Ronquillo MD [address] [place] [address] Dr [address] [place] PCP - General 03/01/08
--- OUTSIDE RECORDS SUMMARY | 2025-02-05 11:45 | XMS_ITS | Patient Health Record ---
Author Organization [facility] Address [address] [facility] [place] [address] Care Team Providers Care Production Line Assembler Name Role Phone ChristianoGary Primary Care Provider Ariadne Long [phone] Allergies Allergen (clinical drug ingredient) Drug/Non Drug [...] atherosclerosis of arteries of lower limbs (disorder) (78446930997673738 ) Atherosclerosis of artery of both lower extremities (I70.203) Active confirmed Problem Ulcer of left heel (disorder) (17277522883790350 ) Skin ulcer of left heel, limited to breakdown of skin (L97.421) Active confirmed Vital Signs Blood pressure diastolic 60 mm Hg 01/26/2025 Height 5 ft 11 in in 01/26/2025 Blood pressure systolic 120 mm Hg 01/26/2025 Weight 176 lbs 01/26/2025 BMI 24.54 kg/m2 01/26/2025 Encounters Encounter Location Date Provider Diagnosis [address] [address] 02/25/2024 Ariadne Perica Atherosclerosis of artery of both lower extremities I70.[address] [address] 04/29/2024 Ariadne Perica Atherosclerosis of artery of both lower extremities I70.[address] [address] 07/21/2024 Ariadne Perica Atherosclerosis of artery of both lower extremities I70.[address] [place] [address] 10/21/2024 Ariadne Long Atherosclerosis of artery of both lower extremities I70.203 [facility] Issue [address] [place] [address] 01/26/2025 Ariadne Long Atherosclerosis of artery of [...] Treatment Next Appt Details Provider Name:Ariadne Arreaga Brittany smita, 05/04/2025 11:15:00 AM, [address] [place] [address], [phone], Insurance Providers Payer Name Payer Address Payer Phone Subscriber Number Group Number Insured Name Patient Relationship to Insured Coverage Start Date Coverage End Date [facility] [address] [place] [address] [id number] Hector Diaz Self - patient is the [...]
[2025-02-05 13:11] LABS: Anion Gap 11 (12-20); Blood Urea Nitrogen 16 mg/dL (9-16); Calcium 9.4 mg/dL (8.4-10.2); Carbon Dioxide 29 mmol/L (22-29); Chloride 101 mmol/L (96-108); Estimated Glomerular Filt Rate > 60; Potassium 3.9 mmol/L (3.3-5.1); Sodium 137 mmol/L (135-145)
== END 2025-02-05 11:44 | disposition home or self-care (01) ==
LOC: HO.LAB 11:43
PROVIDERS: PCP Internal Medicine; Visit Provider Internal Medicine Cardiovascular Disease
DX: I50.30 Unspecified diastolic (congestive) heart failure (principal)
CPT/HCPCS: 36415; 80048

== ENCOUNTER 2025-03-04 11:00 | Outpatient (REF) | payer MEDICARE, SELFPAY ==
--- OUTSIDE RECORDS SUMMARY | 2025-01-25 09:35 | XMS_ITS ---
Author Organization [facility] Address [address] [facility] [address] Care Team Providers Care Appeals Manager Name Role Phone Shima (RETIRED) Darek REHMAN Primary Care Provide r Leigh Boothe Jr, Soren Abraham REASON FOR VISIT Patient presents today for bleeding? Encounters Encounter Location Date Provider Diagnosis [facility] [address] [place], [place] [address] [address] 01/25/2025 Soren Boothe Jr Plan Of Treatment No Information Progress Notes * STEFFEN ANTHONYDOB:1945 ( 80 yo M)Acc No.[id number]:01/25/2025 Progress Notes Patient: STEFFEN KENNEDY Provider: Keira Boothe MD :1945 A ge:79 Y S ex:Male Date:01/25/2025 Address:[address] [place] [address] [id number] Pcp:Darek Ronquillo (RETIRED )MD Subjective: * Chief Complaints: * 1 . Patient presents today for bleeding?. * Medical History: Objective: * Vitals: Assessment: Plan: * Treatment: * * The named appointment provid er may or may not be the originator of this progress note, and it is not deemed complete until electronically signed by the appointment provider. Sign off status: Pending * Provider: Keira Boothe MD Date: 0 01/25/2025 Generated for Printi ng/Faxing/eTransmitting on: 03/04/2025 12:24 PM EDT
--- OUTSIDE RECORDS SUMMARY | 2025-03-04 12:24 | XMS_ITS | Encounter Summary ---
Author Organization [facility] Address [address] [place] [address] Phone Care Team Providers Care Director Of Broadcast Name Role Phone Darek Ronquillo MD Primary Care Provider Encounter Details Date Type Department Care Team (Late st Contact Info) Description 04/05/2021 Procedure Pass [facility] [place] [address] [place] [address] Social History Tobacco Use Types Packs/Day Years Used Date Smoking Tobacco: Former Cigarettes Q uit: 12/03/1999 Smokeless Tobacco: Never Alcohol Use Standard Drinks/Week Comments Yes 14 (1 standard drink = 0.6 oz pu re alcohol) Sex and Gender Information Value Date Recorded Sex Assigned at Not on file Legal Sex Male 11:33 AM EST Gender Identity Not on file Sexual Orientation Not on file documented as of this encounter Plan of Treatment Not on file documented as of this encounter Visit Diagnoses Not on filedocumented in this encounter Care Teams Director Of Broadcast Relationship Specialty Start Date End Date Darek Ronquillo MD [address] [place] [address] Dr RIVAS [place] [address] PCP - General Internal Medicine 01/20/21 documented as of this encounter Additional Source Comments The information contained in this document represents components of the legal health record. It is not the complete legal health record.[facility]
--- OUTSIDE RECORDS SUMMARY | 2025-03-04 12:24 | XMS_ITS | Encounter Summary ---
Author Organization [facility] Address [address] [facility] [address] [place] [address] Phone Care Team Providers Care Deburring Machine Operator Name Role Phone Unknown, Unknown Primary Care Provider Gurmeet gutierrez Pcp, Not Required Primary Care Provider Darek Monson MD Primary Care Provider Encounter Details Date Type Department Care Team (Late st Contact Info) Description 09/26/2020 Procedure Pass [facility] [address] [place] [address] Social History Tobacco Use Types Packs/Day Years [...] on filedocumented in this encounter Care Teams Deburring Machine Operator Relationship Specialty Start Date End Date Unknown, Unknown, MD PCP - General 08/30/20 11/13/20 Pcp, Not Required [address] [place] [address] PCP - General 11/14/20 01/19/21 Darek Ronquillo MD [address] [place] [address] Dr RIVAS [place] [address] PCP - General Internal Medicine 01/20/21 documented as of this encounter Additional Source Comments The information contained in this document represents components of the legal health record. It is not the complete legal health record.[facility]
--- OUTSIDE RECORDS SUMMARY | 2025-03-04 12:24 | XMS_ITS | Patient Health Record ---
Author Organization [facility] Address [address] [place] [address] Care Team Providers Care Financial Systems Administrator Name Role Phone Shima (RETIRED) Darek REHMAN [...] Problem Status W/U Status Risk Notes Problem 71811125 Heme positive stool (R19.5) Active confirmed Problem Gastritis (6986470) Gastritis (K29.70) Active confirmed Problem 528989967 Anemia, unspecified type (D64.9) Active confirmed Vital Signs Temperature 97.5 degrees Fahrenheit 08/10/2024 Blood pressure diastolic 00 mm Hg 08/10/2024 Height 5 ft 11 in in 08/10/2024 Blood pressure systolic 000 mm Hg 08/10/2024 Weight 180 lbs 08/10/2024 BMI 25.10 kg/m2 08/10/2024 Procedures Procedure Date Ordered Date Performed Result Body Sit e VIDEO CAPSULE ENDOSCOPY 10/06/2024 N/A Encounters Encounter Location Date Provider Diagnosis [facility] [address] [place] [address] 08/10/2024 Soren Boothe Jr Anemia, unspecified type D64.9 [facility] [address] [place] [phone] 08/04/2024 Soren Boothe Jr [facility] [address] [place] [address] 10/06/2024 Soren Boothe Jr Anemia, unspecified type D64.9 and Heme positive stool R19.5 [facility] [address] [place] [address] 11/05/2024 Soren Boothe Jr [facility] [address] [place] [address] 01/18/2025 Soren Boothe Jr Assessments Encounter Date [...] Coverage Start Date Coverage End Date [facility] [address] [place] [address] [phone] [id number] STEFFEN ANTHONY Self - patient is the insured Medical (General) History Medical History History ICD Code Hypotension 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
--- OUTSIDE RECORDS SUMMARY | 2025-03-04 12:24 | XMS_ITS | Patient Health Record ---
Author Organization [facility] Address [address] [facility] [place] [address] Care Team Providers Care Pig Machine Crane Operator Name Role Phone ChristianoGary Primary Care Provider Ariadne Long [phone] Allergies Allergen (clinical drug ingredient) Drug/Non Drug [...] atherosclerosis of arteries of lower limbs (disorder) (63211153124112766 ) Atherosclerosis of artery of both lower extremities (I70.203) Active confirmed Problem Ulcer of left heel (disorder) (66967345974836229 ) Skin ulcer of left heel, limited to breakdown of skin (L97.421) Active confirmed Vital Signs Blood pressure diastolic 60 mm Hg 01/26/2025 Height 5 ft 11 in in 01/26/2025 Blood pressure systolic 120 mm Hg 01/26/2025 Weight 176 lbs 01/26/2025 BMI 24.54 kg/m2 01/26/2025 Encounters Encounter Location Date Provider Diagnosis [address] [address] 04/29/2024 Ariadne Perica Atherosclerosis of artery of both lower extremities I70.[address] [address] 07/21/2024 Ariadne Perica Atherosclerosis of artery of both lower extremities I70.[address] [address] 10/21/2024 Ariadne Perica Atherosclerosis of artery of both lower extremities I70.[address] [place] [address] 01/26/2025 Ariadne Mercedes Atherosclerosis of artery of both lower extremities [...] Plan Of Treatment Next Appt Details Provider Name:Ariadnedean ordoñez, 05/04/2025 11:15:00 AM, [address] [place], [address], Insurance Providers Payer Name Payer Address Payer Phone Subscriber Number Group Number Insured Name Patient Relationship to Insured Coverage Start Date Coverage End Date [facility] [address] [place] [id number] Hector Diaz Self - patient is the [...]
--- OUTSIDE RECORDS SUMMARY | 2025-03-04 12:24 | XMS_ITS | Encounter Summary ---
Author Organization [facility] Address [address] [facility] [address] [address] [place] [address] Phone Care Team Providers Care Kindergarten Paraprofessional Name Role Phone Pcp, Not Required Primary Care Provider Darek Monson MD Primary Care Provider Encounter Details Date Type Department Care Team (Late st Contact Info) Description 11/14/2020 Procedure Pass [facility] [address] [place] [address] Social History Tobacco Use Types Packs/Day Years [...] on filedocumented in this encounter Care Teams Kindergarten Paraprofessional Relationship Specialty Start Date End Date Pcp, Not Required [address] [place] [address] PCP - General 11/14/20 01/19/21 Darek Ronquillo MD [address] [place] [address] Dr RIVAS [place] [address] PCP - General Internal Medicine 01/20/21 documented as of this encounter Additional Source Comments The information contained in this document represents components of the legal health record. It is not the complete legal health record.[facility]
--- OUTSIDE RECORDS SUMMARY | 2025-03-04 12:24 | XMS_ITS | Encounter Summary ---
Author Organization [facility] Address [address] [place] [address] Phone Care Team Providers Care Commercial Account Officer Name Role Phone Pcp, Not Required Primary Care Provider Darek Monson MD Primary Care Provider Encounter Details Date Type Department Care Team (Late st Contact Info) Description 12/05/2020 Procedure Pass [facility] [address] [place] [address] Social History Tobacco Use Types Packs/Day Years Used Date Smoking Tobacco: Former Cigarettes Q uit: 12/03/1999 Smokeless Tobacco: Former Alcohol Use Standard Drinks/Week Comments Yes 14 [...] on filedocumented in this encounter Care Teams Commercial Account Officer Relationship Specialty Start Date End Date Pcp, Not Required [address] [place] [address] PCP - General 11/14/20 01/19/21 Darek Ronquillo MD [address] [place] [address] Dr RIVAS [place] [address] PCP - General Internal Medicine 01/20/21 documented as of this encounter Additional Source Comments The information contained in this document represents components of the legal health record. It is not the complete legal health record.[facility]
--- OUTSIDE RECORDS SUMMARY | 2025-03-04 12:24 | XMS_ITS | Encounter Summary ---
Author Organization [facility] Address [address] [facility] [address] [place] [address] Phone Care Team Providers Care Night Filler Name Role Phone Pcp, Not Required Primary Care Provider Darek Monson MD Primary Care Provider Encounter Details Date Type Department Care Team (Late st Contact Info) Description 12/02/2020 Procedure Pass [facility] [address] [place] [address] Social History Tobacco Use Types Packs/Day Years [...] on file documented as of this encounter Functional Status * Calculated C-SSRS Risk Score (Lifetime/Recent) Answer Date of Assessment Author No Risk Indicated 12/02/2020 5:00 PM DYANAT Jackie Mcguire RN * [place] Suicide Severity Rating Scale (Screener/Recent Self-Report) Question Answer Date of Assessment Author 1. Wish to be (Past 1 Month) No 5:00 PM Jackie Jerry RN 2. Non-Specific Active Suici michel Thoughts (Past 1 Month) No 12/02/2020 5:00 PM DYANAT Jennyfer Rangel RN 6. Suicidal Behavior (Lifetime) No 5:00 PM EDT Jackie Rangel RN documented as of this encounter Plan of Treatment Not on file documented as of this encounter Visit Diagnoses Not on filedocumented in this encounter Care Teams Night Filler Relationship Specialty Start Date End Date Pcp, Not Required [address] [place] [address] PCP - General 11/14/20 01/19/21 Darek Ronquillo MD [address] [place] [address] [place] [address] PCP - General Internal Medicine 01/20/21 documented as of this encounter Additional Source Comments The information contained in this document represents components of the legal health record. It is not the complete legal health record.[facility]
--- OUTSIDE RECORDS SUMMARY | 2025-03-04 12:24 | XMS_ITS | Encounter Summary ---
Author Organization [facility] Address [address] [place] [address] Phone Care Team Providers Care Feather Separator Name Role Phone Darek Ronquillo MD Primary Care Provider Encounter Details Date Type Department Care Team (Late st Contact Info) Description 06/05/2022 Procedure Pass [facility], Ct Scan - [address] [address] Social History Tobacco Use Types Packs/Day Years [...] on filedocumented in this encounter Care Teams Feather Separator Relationship Specialty Start Date End Date Darek Ronquillo MD [address] [place] [address] Dr RIVAS [place] [address] PCP - General Internal Medicine 01/20/21 documented as of this encounter Additional Source Comments The information contained in this document represents components of the legal health record. It is not the complete legal health record.[facility]
--- OUTSIDE RECORDS SUMMARY | 2025-03-04 12:24 | XMS_ITS | Encounter Summary ---
Author Organization [facility] Address [address] [facility] [address] [place] [phone] Phone Care Team Providers Care Director Of Product Development Name Role Phone Darek Ronquillo MD Primary Care Provider Reason for Referral * MRI/CAT Scan - Closed Specialty Diagnoses / Procedures Referred By Renetta castelan Referred To Contact Radiology Diagnoses Maxillary sinus cancer Procedures CT Neck CHG CT NECK TISSUE CONTRAST Sharla De La Cruz MD [address] [place] [address], [facility] [address] [place] [address] Phone: tel: fax: [email or web address] Referral ID Status Reason Start Date Expiration Date Visits Re quested Visits Authorized [id number] Closed 06/12/2022 10/28/2022 1 1 * MRI/CAT Scan - Closed Specialty Diagnoses / Procedures Referred By Renetta castelan Referred To Contact Radiology Diagnoses Maxillary sinus cancer Disorientation, unspecified Procedures CT Head CHG CT SCAN HEAD CONTRAST CHG CT SCAN HEAD COMBO Sharla De La Cruz MD [address] [place] [address], [facility] [address] [place] [address] Phone: tel: fax: [email or web address] Referral ID Status Reason Start Date Expiration Date Visits Re quested Visits Authorized [id number] Closed 06/12/2022 10/28/2022 1 1 Encounter Details Date Type Department Care Team (Late st Contact Info) Description 06/05/2022 Transcribe Orders Virtual Department [address] [place] [address] Sharla De La Cruz MD [address] [facility], [address] [place] [address] [email or web address] Maxillary sinus cancer (Primary Dx) Social History Tobacco Use Types Packs/Day Years [...] on file documented as of this encounter Results * CT NECK SOFT TISSUE WITH CONTRAST (06/14/2022 2:01 PM EST) Anatomical Region Laterality Modality Neck Computed Tomogra phy 06/15/2022 9:20 AM EST Impressions 06/15/2022 9:44 AM EST Redemonstration of right-sided postsurgical changes from prior right lateral rhinotomy and medial mastoidectomy with similar to slightly decreased soft tissue density. Direct inspection may again be helpful for definitive evaluation. Narrative 06/15/2022 9:[address] NECK SOFT TISSUE WITH CONTRAST TECHNIQUE: Multidetector-row CT of the neck was performed with intravenous contrast using tailored dose modulation techniques. Images were reconstructed in the axial, coronal, and sagittal planes. COMPARISON: CT abdomen 05/17/2021 FINDINGS: There is redemonstration of right-sided postsurgical changes from prior right lateral rhinotomy and medial mastoidectomy. The right maxillary sinus is again noted to be partially opacified with similar to slightly decreased soft tissue density. There is similar thickening and sclerosis of the right maxillary sinus wall. There is mucoperiosteal thickening with layering fluid density at the left maxillary sinus. Mild mucoperiosteal thickening is also noted at the right sphenoid sinus. Lymph Nodes: There are no nodes meeting CT criteria for pathologic involvement. Salivary Glands: No obvious lesion is present. Thyroid Gland: The gland is homogenous in attenuation. Vessels: Similar scattered atherosclerotic calcification at the carotid bulbs bilaterally with similar moderate narrowing of the proximal left internal carotid artery. Atherosclerotic calcification also demonstrated at the carotid siphon bilaterally. The right vertebral artery is again noted to be dominant. Partial visualization of right-sided central venous catheter. Brain and Orbits: No detectable abnormality is present in the imaged portions of the brain and orbits within limitation of nondedicated imaging. Lung Apices: Biapical emphysema. Bones and Soft Tissues: Similar periapical lucency at the left maxillary first molar. Multilevel degenerative changes of the spine. Similar sclerotic focus of the left mandibular condyle. No suspicious osseous lesions are present. Procedure Note Caren Dennis MD - 06/15/2022 CT NECK SOFT TISSUE WITH CONTRAST TECHNIQUE: Multidetector-row CT of the neck was performed with intravenouscontrast using tailored dose modulation techniques. Images werereconstructed in the axial, coronal, and sagittal planes. COMPARISON: CT abdomen 05/17/2021 FINDINGS: There is redemonstration of right-sided postsurgical changes from priorright lateral rhinotomy and medial mastoidectomy. The right maxillarysinus is again noted to be partially opacified with similar to slightlydecreased soft tissue density. There is similar thickening and sclerosisof the right maxillary sinus wall. There is mucoperiosteal thickening withlayering fluid density at the left maxillary sinus. Mild mucoperiostealthickening is also noted at the right sphenoid sinus. Lymph Nodes: There are no nodes meeting CT criteria for pathologicinvolvement. Salivary Glands: No obvious lesion is present. Thyroid Gland: The gland is homogenous in attenuation. Vessels: Similar scattered atherosclerotic calcification at the carotidbulbs bilaterally with similar moderate narrowing of the proximal leftinternal carotid artery. Atherosclerotic calcification also demonstratedat the carotid siphon bilaterally. The right vertebral artery is againnoted to be dominant. Partial visualization of right-sided central venouscatheter. Brain and Orbits: No detectable abnormality is present in the imagedportions of the brain and orbits within limitation of nondedicatedimaging. Lung Apices: Biapical emphysema. Bones and Soft Tissues: Similar periapical lucency at the left maxillaryfirst molar. Multilevel degenerative changes of the spine. Similarsclerotic focus of the left mandibular condyle. No suspicious osseouslesions are present. IMPRESSION: Redemonstration of right-sided postsurgical changes from prior rightlateral rhinotomy and medial mastoidectomy with similar to slightlydecreased soft tissue density. Direct inspection may again be helpful fordefinitive evaluation. us Sharla Diaz MD IMG CT XSPECIALTY OCTAVIO RIVERA Final Result * CT HEAD WITH AND WITHOUT CONTRAST (06/14/2022 2:01 PM EST) Anatomical Region Laterality Modality Head Computed Tomogra phy 06/14/2022 4:34 PM EST Impressions 06/14/2022 4:48 PM EST 1. No acute abnormality. No CT evidence of intracranial metastatic disease. 2. Mild cerebral volume loss and mild-moderate chronic microvascular ischemic disease. 3. Expected postoperative changes from prior right lateral rhinotomy and maxillectomy, with mild wrd-eari-fetz soft tissue enhancement in the inferior aspect of the right maxillary sinus fossa, most likely representing mucosal thickening. No definite evidence of enhancing mass. Narrative 06/14/2022 4:[address] HEAD WITH AND WITHOUT CONTRAST TECHNIQUE: Multidetector-row CT of the head was performed before and after administration of intravenous contrast using tailored dose modulation techniques. Images were reconstructed in the axial, coronal, and sagittal planes. COMPARISON: None FINDINGS: Brain Parenchyma: No midline shift, mass effect, acute parenchymal hemorrhage, or evidence of acute territorial infarct. No enhancing abnormality. There are mild to moderate areas of hypodensity in the periventricular white matter, most likely a manifestation of chronic small vessel disease. Atherosclerotic calcifications of the cavernous carotid arteries are seen. Ventricular System and Extra-Axial Spaces: The ventricles and sulci are prominent, consistent with mild global age-related cerebral volume loss. No extra-axial fluid collections. Basilar cisterns are patent. No hydrocephalus. Osseous and Extracranial Structures: No fracture or significant soft tissue hematoma. 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 There is mild nrn-mymv-cdqd soft tissue enhancement in the inferior aspect of the right maxillary sinus fossa (series 5, image 14 and series 15, image 14), most likely representing mucosal thickening. No definite evidence of enhancing mass There is a small air-fluid level in the left maxillary sinus, with mild mucosal thickening. There is mild mucosal thickening in the right sphenoid sinus Right frontal sinus is hypoplastic. Left frontal sinus is clear. There is mild mucosal thickening of the left ethmoid air cells. The mastoid air cells are clear. No acute intra-orbital abnormality. There are bilateral ocular lens implants Procedure Note Parish Melton MD - 06/14/2022 CT HEAD WITH AND WITHOUT CONTRAST TECHNIQUE: Multidetector-row CT of the head was performed before and afteradministration of intravenous contrast using tailored dose modulationtechniques. Images were reconstructed in the axial, coronal, and sagittalplanes. COMPARISON: None FINDINGS: Brain Parenchyma: No midline shift, mass effect, acute parenchymalhemorrhage, or evidence of acute territorial infarct. No enhancingabnormality. There are mild to moderate areas of hypodensity in theperiventricular white matter, most likely a manifestation of chronic smallvessel disease. Atherosclerotic calcifications of the cavernous carotidarteries are seen. Ventricular System and Extra-Axial Spaces: The ventricles and sulci areprominent, consistent with mild global age-related cerebral volume loss.No extra-axial fluid collections. Basilar cisterns are patent. Nohydrocephalus. Osseous and Extracranial Structures: No fracture or significant softtissue hematoma. Postoperative changes are seen from prior right lateral rhinotomy, medialmaxillectomy for resection of right maxillary sinus and sinonasalpapilloma and sinonasal squamous cell carcinoma. There is ehhnqss-povg-bpxy soft tissue enhancement in the inferior aspect of the rightmaxillary sinus fossa (series 5, image 14 and series 15, image 14), mostlikely representing mucosal thickening. No definite evidence of enhancingmass There is a small air-fluid level in the left maxillary sinus, with mildmucosal thickening. There is mild mucosal thickening in the right sphenoidsinus Right frontal sinus is hypoplastic. Left frontal sinus is clear. There ismild mucosal thickening of the left ethmoid air cells. The mastoid air cells are clear. No acute intra-orbital abnormality. There are bilateral ocular lensimplants IMPRESSION: 1. No acute abnormality. No CT evidence of intracranial metastaticdisease. 2. Mild cerebral volume loss and mild-moderate chronic microvascularischemic disease. 3. Expected postoperative changes from prior right lateral rhinotomy andmaxillectomy, with mild ktf-ulir-rkbp soft tissue enhancement in theinferior aspect of the right maxillary sinus fossa, most likelyrepresenting mucosal thickening. No definite evidence of enhancing mass. 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 It is not the complete legal health record.[facility]
--- OUTSIDE RECORDS SUMMARY | 2025-03-04 12:24 | XMS_ITS | Encounter Summary ---
Author Organization [facility] Address [address] [place] [address] Phone Care Team Providers Care Switchboard Troubleshooter Name Role Phone Darek Ronquillo MD Primary Care Provider Encounter Details Date Type Department Care Team (Late st Contact Info) Description 06/05/2022 Procedure Pass [facility], Ct Scan - [address] [address] Social History Tobacco Use Types Packs/Day Years [...] on filedocumented in this encounter Care Teams Switchboard Troubleshooter Relationship Specialty Start Date End Date Darek Ronquillo MD [address] [place] [address] Dr [place]AS [place] [id number] PCP - General Internal Medicine 01/20/21 documented as of this encounter Additional Source Comments The information contained in this document represents components of the legal health record. It is not the complete legal health record.[facility]
--- OUTSIDE RECORDS SUMMARY | 2025-03-04 12:24 | XMS_ITS | Encounter Summary ---
Author Organization [facility] Address [address] [place] [address] Phone Care Team Providers Care Application Security Engineer Name Role Phone Darek Ronquillo MD Primary Care Provider Encounter Details Date Type Department Care Team (Late st Contact Info) Description 04/05/2021 Procedure Pass [facility] - [facility] [address] [place] [address] [place] [address] Social History Tobacco Use Types Packs/Day Years [...] on filedocumented in this encounter Care Teams Application Security Engineer Relationship Specialty Start Date End Date Darek Ronquillo MD [address] [place] [address] Dr [place]AS [place] [id number] PCP - General Internal Medicine 01/20/21 documented as of this encounter Additional Source Comments The information contained in this document represents components of the legal health record. It is not the complete legal health record.[facility]
--- OUTSIDE RECORDS SUMMARY | 2025-03-04 12:24 | XMS_ITS | Clinical Summary ---
Author Organization [facility] Address [address] [facility] [address] [place] [address] Phone Care Team Providers Care Dry Press Operator Helper Name Role Phone Darek Ronquillo MD Primary Care Provider Allergies Active Allergy Reactions Criticality Noted Date Comments Pollen Extracts 01/11/2021 Medications clopidogrel (PLAVIX) 75 mg tablet Take 75 mg by mouth daily. Active lisinopril (PRINIVIL,ZESTR IL) 20 MG tablet Take 20 mg by mouth daily. Active fenofibrate (TRICOR) 145 MG tablet Take 145 mg by mouth daily. Active aspirin 81 MG EC tablet Take 81 mg by mouth daily. Active furosemide (LASIX) 40 MG tablet Take 40 mg by mouth. Active cholecalciferol (VITAMIN D3) 400 unit tablet Take 400 Units by mouth daily. Active vitamins A,C,E-zinc-cata er (PRESERVISION AREDS) 14,320-226-200 cazw-zp-qrsm Cap Take 1 capsule by mouth 2 (two) times a day with meals. Active atorvastatin (LIPITOR) 40 MG tablet Take 40 mg by mouth daily. Active dutasteride (AVODART) 0.5 mg capsule Take 0.5 mg by mouth daily. Active budesonide-form oterol (SYMBICORT) 160-4.5 mcg/actuation inhaler Inhale 2 puffs into the lungs 2 (two) times a day. Active fluticasone propionate (FLONASE) 50 mcg/actuation nasal spray 1 spray by Nasal route daily. Active dextromethorpha n-guaiFENesin (MUCINEX DM) 30-600 mg per 12 hr tablet Take 1 tablet by mouth every 12 (twelve) hours. Active dilTIAZem (CARDIZEM CD) 240 MG 24 hr capsule Take 240 mg by mouth daily. Active metoprolol succinate (TOPROL-XL) 100 MG 24 hr tablet Take 1 tablet (100 mg total) by mouth daily. 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 Hypertension 11/08/2020 Hyperlipidemia 11/08/2020 Cardiac dysrhythmia 11/08/2020 PVD (peripheral vascular disease) 11/08/2020 Arterial disease 11/08/2020 Heart murmur 11/08/2020 Coronary artery disease 11/08/2020 History of coronary artery bypass graft 11/09/19 21 Chronic obstructive pulmonary disease (COPD) 10/2020 Malignant neoplasm 11/08/2020 Pulmonary hypertension 11/08/2020 Immunizations Immunization Administration Dates Next Due COVID-19 (Pre-04/29) Pfizer Vaccine, mRNA, PF ,08/13/2020 Family History Medical History Relation Comments Heart attack Brother Heart attack Father Relation Status Comments Brother Father Mother old age Social History Tobacco Use Types Packs/Day Years Used Date Smoking Tobacco: Former Cigarettes Q uit: 12/03/1999 Smokeless Tobacco: Never Alcohol Use Standard Drinks/Week Comments Yes 14 (1 standard drink = 0.6 oz pu re alcohol) Education Answer Date Recorded Are you interested in more education? Not on ar e 11/02/2022 Are you concerned about learning? Not on file 11/02/2022 No 11/02/2022 No 11/02/2022 Digital Access Answer Date Recorded No 12/03/2022 No 12/03/2022 No 12/03/2022 Reliable internet access at home? Not on file 12/03/2022 Device with a working camera? Not on file Sex and Gender Information Value Date Recorded Sex Assigned at Not on file Legal Sex Male 11:33 AM EST Gender Identity Not on file Sexual Orientation Not on file Last Filed Vital Signs Vital Sign Reading Time Taken Comments Blood Pressure 115/67 03/21/2021 10:58 AM EDT Pulse 89 03/21/2021 10:58 AM EDT Temperature 36.6 C (97.9 F) 03/21/2021 10:58 AM EDT Respiratory Rate 18 03/14/2021 10:40 AM EDT Oxygen Saturation 93% 03/14/2021 10:40 AM EDT Inhaled Oxygen Concentration 28% 12/04/2020 1 :45 PM EDT Weight 93 kg (205 lb) 12/06/2021 10:30 AM EDT Height 180.3 cm (5' 11 ) 12/06/2021 10:30 AM EDT Body Mass Index 28.59 12/06/2021 10:30 AM EDT Plan of Treatment Health Maintenance Due Date Last Done Comments Adult Td,Tdap Booster 1945 BLOOD PRESSURE 1945 DEPRESSION SCREENING 1957 SMOKING Hx and SMOKELESS TOBACCO SCREENING 1958 HEPATITIS C SCREENING 1963 PNEUMOCOCCAL VACCINES (50+ years) (1 of 2 - PCV) 1964 ZOSTER VACCINES (1 of 2) 1964 RSV VACCINE (1 - 1-dose 75+ series) 2020 CREATININE LEVEL 12/05/2021 12/05/2020, , 12/03/2020, Additional history exists POTASSIUM LEVEL 12/05/2021 12/05/2020, 11/07, 12/03/2020 COVID-19 VACCINE ( season) 2024 09/03/2020, 08/13/2020 HEPATITIS A VACCINES Aged Out No long er eligible based on patient's age to complete this topic HIB VACCINES Aged Out No longer eligi ble based on patient's age to complete this topic MENINGOCOCCAL VACCINES (ACWY) Aged Out No longer eligible based on patient's age to complete this topic MENINGOCOCCAL VACCINES (B) Aged Out N o longer eligible based on patient's age to complete this topic Medical Devices Implanted Type Area Mason Tender Device Identifier Shelf Expiration Date Model / Serial / Lot Cannula Lewis Lacr Without Bx 3ea Bx/3ea - [id number] Implanted:Qty: 1 on 12/02/2020 by Chavo Varner MD, FACS at [facility] [employer] 05/06/2021 [id number] / [id number] Procedures Procedure Name Priority Date/Time Associated Diagnosis Comments BASIC METABOLIC PANEL Routine 12/05/2020 5:51 AM EDT from Last 3 Months or Most Recently Relevant to Health Maintenance Results * (ABNORMAL) Basic metabolic panel (12/05/2020 5:51 AM EDT) SODIUM 144 135 - 145 mmol/L [facility] CHLORIDE 107 100 - 108 mmol/L [facility] POTASSIUM 4.3 3.5 - 5.0 mmol/L [facility] CO2 30 23 - 31.9 mmol/L [facility] BUN 24 8 - 25 mg/dL [facility] CREATININE 0.79 0.6 - 1.5 mg/dL [facility] GLUCOSE 159(H) 70 - 110 mg/dL [facility] CALCIUM 8.9 8.5 - 10.5 mg/dL [facility] EGFR 88 >59 mL/min/1. 73m2 [facility] Comment:Estimated glomerular filtration rate calculated using the CKD-EPI equation. ANION GAP 7 3 - 15 mmol/L [facility] Blood 12/05/2020 5:51 AM EDT 12/05/2020 6:15 AM EDT Chavo Varner MD, FACS LAB BLOOD ORDERABLES nal Result [address] from Last 3 Months or Most Recently Relevant to Health Maintenance Insurance [employer] RE[employer] [place] [employer] [place] [employer] [place] [employer] RE[employer] [place] [employer] [place]AC[employer] Advance Directives For more information, please contact: [phone] (9AM - 5PM [facility], Saturday-Saturday) Documents on File Type Date Recorded Patient Office Lead Expl anation Healthcare Proxy 12/07/2020 12:45 PM * Full Code (Latest Code Status on File) Date Activated Date Inactivated Comments 12/02/2020 4:51 PM Question Answer Comments Code Status Confirmed With: Patient Care Teams Dry Press Operator Helper Relationship Specialty Start Date End Date Darek Ronquillo MD [address] [place] [address] [place] [address] PCP - General Internal Medicine 01/20/21 Additional Source Comments The information contained in this document represents components of the legal health record. It is not the complete legal health record.[facility]
--- OUTSIDE RECORDS SUMMARY | 2025-03-04 12:25 | XMS_ITS | Encounter Summary ---
Author Organization [facility] Address [address] [facility] [address] [place] [address] Phone Care Team Providers Care Stress Engineer Name Role Phone Pcp, Not Required Primary Care Provider Darek Monson MD Primary Care Provider Encounter Details Date Type Department Care Team (Late st Contact Info) Description 01/11/2021 Ancillary Orders [facility],Outside Imaging [address] [place] [address] System, Provider Not In, [facility] [address] [address] Social History Tobacco Use Types Packs/Day Years [...] as of this encounter Results * CT Face Outside (No Interpretation) (06/21/2020 12:00 AM EST) Narrative SYSTEMGENERATED, DOCUMENTATION - 01/11/2021 2:53 PM EDT This study is for PACS storage only and not for interpretation. us Provider Not In System PhD IMG OUTSIDE IMAGING W /OUT INTERPRETATION Final Result * MRI Face Outside (No Interpretation) (06/16/2020 12:00 AM EST) Narrative SYSTEMGENERATED, DOCUMENTATION - 01/11/2021 2:52 PM EDT This study is for PACS storage only and not for interpretation. us Provider Not In System PhD IMG OUTSIDE IMAGING W /OUT INTERPRETATION Final Result * NM PET Whole Body Outside (No Interpretation) (05/17/2020 12:00 AM EST) Narrative SYSTEMGENERATED, DOCUMENTATION - 01/11/2021 2:51 PM EDT This study is for PACS storage only and not for interpretation. us Provider Not In System PhD IMG OUTSIDE IMAGING W /OUT INTERPRETATION Final Result documented in this encounter Visit Diagnoses Not on filedocumented in this encounter Care Teams Stress Engineer Relationship Specialty Start Date End Date Pcp, Not Required [address] [place] [address] PCP - General 11/14/20 01/19/21 Darek Ronquillo MD [address] [place] [address] [place] [address] PCP - General Internal Medicine 01/20/21 documented as of this encounter Additional Source Comments The information contained in this document represents components of the legal health record. It is not the complete legal health record.[facility]
--- OUTSIDE RECORDS SUMMARY | 2025-03-04 12:25 | XMS_ITS | Clinical Summary ---
Author Organization [facility] [address] [facility] Address [address] [place] [address] Phone Care Team Providers Care Campus President Name Role Phone Darek Ronquillo MD Primary Care Provider [phone] Allergies Active Allergy Reactions Criticality Noted Date [...] Do not crush, chew, or split. Active ww-rri-AW-vit L-cxczzh-lgklded (PreserVision AREDS 2 Plus MV) 200 mcg-15 [...] thoracentesis. Alternatively he could follow-up with his fashion adviser and see if any adjustments in his medications would simply resolve the problem. He is currently on Bumex. His preference is to follow-up with his fashion adviser at [place] and I will make sure to send [...] general and how their size, shape, and liner roll changer time affect her level of suspicion [...] general and how their size, shape, and liner roll changer time affect her level of suspicion [...] follow-up on pleural effusion. Ascending aortic aneurysm ([facility] V24) 06/12/20 Overview (08/10/2024): Last Assessment & [...] will continue to monitor this. Aortic aneurysm ([facility] V24) 12/21/2020 Overview (08/10/2024): Last Assessment & Plan: sinus of Valsalva 4.3 cm, ascending aorta 4.5 cm, transverse aorta at 4.5 cm. Blood pressure is stable. Continue metoprolol. We will continue to monitor yearly. Chronic atrial fibrillation ([facility] V24, [facility]/ C V28) 12/21/2020 Overview (08/10/2024): Last Assessment & Plan: He presents in a rate controlled atrial fibrillation. He will continue metoprolol and diltiazem at current doses. His WWZ4WW4-GZIm score is elevated at 5(age, CHF, HTN, [...] Continue regimen as above. Peripheral vascular disease ([facility] V24) 2020 Overview (08/10/2024): Last Assessment & [...] Encounters Date Type Department Care Team Description 02/18/2025 1:15 PM EDT Office Visit Thoracic Surgery - [address] [place] [address] Mamadou Doss MD Pulmonary nodule (Primary Dx) 02/11/2025 12:55 PM EDT - 02/11/2025 11:59 PM EDT Hospital Encounter [facility] CT Scan [address] [place] [address] Pulmonary nodule; Pleural effusion Discharge Disposition: Home or Self Care from Last 3 Months Immunizations Name Administration Dates Next Due Pfizer SARS-CoV-2 COVID-19, mRNA, LNP-S, preservative free 09/03/2020,08/13/2020 Surgical History Surgery Date Site/Laterality Comments CORONARY ARTERY BYPASS GRAFT 2002 PROCEDURE: HISTORICAL CABG OTHER SURGICAL HISTORY 11/15/2023 PROCEDURE: MT BRONCHOSCOPY W/CPTR-ASST IMAGE-GUIDED NAVIGATION; COMMENT: Kyle Bronch/EBUS with Biopsies Medical History Medical History Date Comments Atrial fibrillation ([facility] V24, [facility] V28) 09/30/2023 DX:Atrial fibrillation ([facility]) Anemia 09/30/2023 DX:Anemia Mixed hyperlipidemia 09/30/2023 DX:Mixed hy perlipidemia Peripheral vascular disease ([facility] V24) 09/30/2023 DX:Peripheral vascular disea se ([facility]) COPD (chronic obstructive pu lmonary disease) ([facility] V24, [facility] V28) 09/30/2023 DX:COPD (chronic o bstructive pulmonary disease) ([facility]) Essential (primary) hypertension 09/30/2023 DX:Essential (primary) hypertension [...] polyps Thoracic aortic aneurysm wit hout rupture ([facility] V24) DX:Thoracic aortic aneurysm without rupture ([facility]) Basal cell carcinoma of skin , unspecified DX:Basal cell carcinoma of s kin, unspecified Vitamin D deficiency DX:Vitamin D deficiency Paroxysmal atrial fibrillati on ([facility] V24, [facility] V28) DX:Paroxysmal atrial fibril lation (HCC) Encounter for screening for malignant neoplasm of rectum DX:Encounter for screening f or malignant neoplasm of rectum Personal history of nicotine dependence DX:Personal history of nicot ine dependence Chronic diastolic (congestiv e) heart failure ([facility] V24, [facility] V28) DX:Chronic diastoli c (congestive) heart failure [...] Information Value Date Recorded Sex Assigned at Male 02/09/2025 7:38 AM EDT Legal Sex Male 4:04 PM EST Gender Identity Not on file Sexual Orientation Not on file Obstetrics History Last Filed Vital Signs Vital Sign Reading Time Taken Comments Blood Pressure 107/56 02/18/2025 1:19 PM EDT Pulse 73 02/18/2025 1:19 PM EDT Temperature 36.8 C (98.2 F) 02/18/2025 1:19 PM EDT Respiratory Rate 14 09/10/2024 10:0 1 AM EST Oxygen Saturation 97% 02/18/2025 1:19 PM EDT Inhaled Oxygen Concentration - - Weight 66.6 kg (146 lb 14.4 oz) 02/18/2025 1:19 PM EDT Height 180.3 cm (5' 11 ) 02/18/2025 1:19 PM EDT Body Mass Index 20.49 02/18/2025 1:19 PM EDT Plan of Treatment Health Maintenance Due Date Last Done Comments DTaP,Tdap,and Td Vaccines (1 - Tdap) 1964 Pneumococcal Vaccine: 50+ Years (1 of 2 - PCV) 1964 Zoster Vaccines (1 of 2) 1964 RSV Immunization Adult Patients (1 - 1-dose 75+ series) 2020 Cholesterol Screening (Lipid Panel) 06/06/2022 Falls Risk Assessment 06/06/2022 Lung Cancer Screening (Low Dose CT) 06/06/2022 Medicare Annual Wellness Visit 06/06/2022 Social Influencers of Health Screening 06/06/2022 Hypertension/CHF/CAD Annual BMP Blood Test 01/01/2023 01/01/2022 COVID-19 Vaccine ( season) 2024 05/03/2023, 04/11/2021, 09/03/2020, Additional history exists Depression Screening 07/08/2024 Influenza Vaccine (#1) 2025 , 04/19/2021, 05/12/2019 HIB Vaccines Aged Out No [...] Diagnosis Comments CT CHEST WO CONTRAST Routine 02/11/2025 1:10 PM EDT Pulmonary nodule Pleural effusion ANNUAL BMP BLOOD TEST Routine 01/01/2022 from Last 3 Months or Most Recently Relevant to Health Maintenance Results * CT Chest wo Contrast (02/11/2025 1:10 PM EDT) Anatomical Region Laterality Modality Body Computed Tomogra phy 02/15/2025 2:23 PM EDT Impressions 02/15/2025 2:35 PM EDT Impression: 1. No significant change in a right apical lung mass being followed since 09/05/23. 2. New areas of nodular airspace consolidation in both lower lobes, likely infectious/inflammatory, for which a follow-up CT is recommended in 3 months. 3. Mild mediastinal lymphadenopathy, increased from previous, possibly reactive hyperplasia in this setting. 4. Trace right and small left pleural effusions, the right effusion smaller since 08/31/24. Telerad PA ([id number]) -------- FINAL REPORT -------- Dictated By: Nova Thomas Dictated Date: 02/15/2025 14:23 ET Assigned Physician: Nova Thomas Reviewed and Electronically Signed By: Nova Thomas Signed Date: 02/15/2025 14:35 ET Workstation ID: [id number] Transcribed By: Self Edit Transcribed Date: 02/15/2025 14:23 ET Narrative 02/15/2025 2:35 PM EDT History: Follow-up pulmonary nodule. Comparison: 08/31/24, 09/05/23 Technique: Helical volumetric imaging of the thorax was performed without IV contrast. DLP: 756.76 mGy/cm [place] CMOS SensorsT Iterative reconstruction technique Findings: The right apical 34 x 14 mm mass being followed (image 74 series 4) measured 32 x 14 mm on the most recent exam and 39 x 15 mm on the 2023 study, overall without significant change. The trachea and central bronchial tree remain patent. 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 There are nodular areas of airspace consolidation now in both lower lobes appearing new, likely infectious/inflammatory. Trace right pleural effusion has decreased in size since the most recent exam. A small left pleural effusion is without significant change. No pericardial effusion is seen. Moderate multichamber cardiomegaly is again noted. Median sternotomy and coronary artery bypass surgical sequela are again seen. There is a small fusiform ascending thoracic aortic aneurysm measuring approximately 4.1 cm AP, without significant change. A mildly enlarged aortopulmonary window lymph node is stable from previous and subcarinal lymphadenopathy measuring up to 21 mm short axis has increased from 18 mm on the most recent study. A small portion of the upper abdomen included on the lowest images through the thorax is remarkable for a right upper pole renal cyst and severe atherosclerotic vascular calcification. No suspicious osseous destructive lesion is seen. Flowing hyperostosis is seen along the anterior aspect of the spine. Procedure Note Nova Thomas MD - 02/15/2025 History: Follow-up pulmonary nodule. Comparison: 08/31/24, 09/05/23 Technique: Helical volumetric imaging of the thorax was performed withoutIV contrast. DLP: 756.76 mGy/cm Vitrinepixpeed VCT Iterative reconstruction technique Findings: The right apical 34 x 14 mm mass being followed (image 74 series 4)measured 32 x 14 mm on the most recent exam and 39 x 15 mm on the 2023udy, overall without significant change. The trachea and central bronchial tree remain patent. There is severeemphysematous destruction of the pulmonary parenchyma bilaterally. Thereare nodular areas of airspace consolidation now in both lower lobesappearing new, likely infectious/inflammatory. Trace right pleural effusion has decreased in size since the most recentexam. A small left pleural effusion is without significant change. Nopericardial effusion is seen. Moderate multichamber cardiomegaly is again noted. Median sternotomy andcoronary artery bypass surgical sequela are again seen. There is a smallfusiform ascending thoracic aortic aneurysm measuring approximately 4.1 cmAP, without significant change. A mildly enlarged aortopulmonary window lymph node is stable from previousand subcarinal lymphadenopathy measuring up to 21 mm short axis hasincreased from 18 mm on the most recent study. A small portion of the upper abdomen included on the lowest images throughthe thorax is remarkable for a right upper pole renal cyst and severeatherosclerotic vascular calcification. No suspicious osseous destructive lesion is seen. Flowing hyperostosis isseen along the anterior aspect of the spine. IMPRESSION: Impression: 1. No significant change in a right apical lung mass being followed since09/05/23. 2. New areas of nodular airspace consolidation in both lower lobes, likelyinfectious/inflammatory, for which a follow-up CT is recommended in 3months. 3. Mild mediastinal lymphadenopathy, increased from previous, possiblyreactive hyperplasia in this setting. 4. Trace right and small left pleural effusions, the right effusionsmaller since 08/31/24. Teleelvia LARSON ([id number]) -------- FINAL REPORT -------- Dictated By: Nova Thomas Dictated Date: 02/15/2025 14:23 ET Assigned Physician: Nova Thomas Reviewed and Electronically Signed By: Nova Thomas Signed Date: 02/15/2025 14:35 ET Workstation ID: [id number] Transcribed By: Self Edit Transcribed Date: 02/15/2025 14:23 ET Kaley LARSON IMG CT PROCEDURES Final Resul t * Annual BMP Blood Test (01/01/2022) Annual BMP Blood Test abstracted Historical Provider HEALTH MAINTENANCE Final Result from Last 3 Months or Most Recently Relevant to Health Maintenance Insurance WILLIAM WILIAN KRUEGER [id number] [employer] [place]IL [place] [address] [place] [phone] Care Teams Campus President Relationship Specialty Start Date End Date Darek Ronquillo MD [address] [place] [address] Dr Navdeep [place] PCP - General 03/01/08
[2025-03-04 12:40] LABS: Anion Gap 10 (12-20); Blood Urea Nitrogen 23 mg/dL (9-16); Calcium 9.0 mg/dL (8.4-10.2); Carbon Dioxide 29 mmol/L (22-29); Chloride 102 mmol/L (96-108); Estimated Glomerular Filt Rate > 60; Potassium 3.9 mmol/L (3.3-5.1); Sodium 137 mmol/L (135-145)
[2025-03-04 12:53] LABS: Prostate Specific Antigen 1.15 ng/mL (<0.05-4.0)
== END 2025-03-04 11:01 | disposition home or self-care (01) ==
LOC: HO.LAB 11:00
PROVIDERS: Absent Provider Urology; PCP Internal Medicine; Visit Provider Internal Medicine Cardiovascular Disease
DX: N40.1 Benign prostatic hyperplasia with lower urinary tract symptoms (principal); I48.20 Chronic atrial fibrillation, unspecified; Z12.5 Encounter for screening for malignant neoplasm of prostate
CPT/HCPCS: 36415; 80048; 84153

== ENCOUNTER 2025-03-23 12:30 | Outpatient (AMB) | payer MEDICARE, SELFPAY ==
--- OUTSIDE RECORDS SUMMARY | 2025-01-25 09:35 | XMS_ITS ---
Author Organization [facility] Address [address] [facility] [place] [address] Care Team Providers Care Breast Puller Name Role Phone Shima (RETIRED) Darek REHMAN Primary Care Provide r Leigh Boothe Jr, Soren Abraham REASON FOR VISIT Patient presents today for bleeding? Encounters Encounter Location Date Provider Diagnosis [facility] [address] [place], [place] [address] [address] 01/25/2025 Soren Boothe Jr Plan Of Treatment No Information Progress Notes * STEFFEN ANTHONYDOB:1945 ( 80 yo M)Acc No.[id number]:01/25/2025 Progress Notes Patient: STEFFEN KENNEDY Provider: Keira Boothe MD :1945 A ge:79 Y S ex:Male Date:01/25/2025 Address:[address] [place] [address] [id number] Pcp:Darek Ronquillo (RETIRED )MD Subjective: * Chief [...] 0 01/25/2025 Generated for Printi ng/Faxing/eTransmitting on: 0 03/23/2025 04:33 PM EDT
[2025-03-23 12:47] VITALS: BP 110/50; PULSE 64; BMI 21.1
--- NOTE | 2025-03-23 12:47 | A.OFFVIS_ITS ---
Vital Signs 03/23/25 12:47 Height 5 ft 11 in Weight 151 lb 3.794 oz BMI 21.1 BP 110/50 L Blood Pressure Location Rt brachial Position Sitting Pulse 64 Pulse Source Monitor Intake Visit Reasons: 6m follow up Marshmallow Maker Required: No Accompanied by: Spouse Allergies hydromorphone (From Dilaudid) Adverse Reaction (Verified 03/23/25 12:51) Confusion Medication List - Last Reconciled 03/23/25 by Sj Key NP atorvastatin 40 mg PO DAILY@1700 bumetanide 2 mg PO BID@0700,1700 90 days cholecalciferol (vitamin D3) 10 mcg PO DAILY@0700 digoxin 125 mcg PO SUMOTUTHFR dutasteride (Avodart) 0.5 mg PO DAILY@1700 fenofibrate nanocrystallized 145 mg PO DAILY@0700 ferrous sulfate 325 mg PO BID@0700,1700 metolazone 2.5 mg PO MOWEFR PRN metoprolol succinate ER 25 mg PO DAILY@1700 midodrine 2.5 mg PO TID@0700,1200,1700 omeprazole 20 mg PO DAILY@0630 potassium chloride ER 40 mEq (2 x 20 mEq) PO QAM rivaroxaban (Xarelto) 20 mg PO DAILY@1700 vit C,F-Uo-tcqdv-lutein-zeaxan 250-90-40-1 mg (PreserVision AREDS-2) 1 tab PO BID@1200,1700 HPI Comments Details: This is an 80-year-old male patient coming in for a follow-up visit, accompanied by his . Patient with a history of heart failure with preserved ejection fraction, coronary artery disease, femoral bypass graft, CABG in 2004, COPD, and chronic AFib. Previously patient was hospitalized for acute on chronic heart failure and COPD exacerbation for which patient is PCP office had started patient on metolazone in addition to Bumex. Since developing hypokalemia an KEN, patient has only been taking metolazone sparingly as advised. Today, patient is reporting feeling well overall without any cardiac symptoms of exertional chest pain, shortness of breath, palpitations, dizziness, orthopnea, PND, presyncope, or syncope. The notes that patient has gained weight since his last visit however this is due to him eating better and not due to water weight. Patient reports that his edema in the legs have stayed stable and has not gotten worse. Patient is otherwise reporting compliance with all his medications. [facility] Medical History Metabolic alkalosis Gastritis Gross hematuria Chronic atrial fibrillation (HFpEF) heart failure with preserved ejection fraction Low blood pressure Anemia Acute congestive heart failure Acute upper gastrointestinal bleeding Acute blood loss anemia COPD (chronic obstructive pulmonary disease) Hyperlipidemia Afib Nasal sinus tumor CAD (coronary artery disease) Surgical History Hx of CABG Family History Mother No problems noted. Father No problems noted. Social History Household Members: Spouse Housing: House Do you presently have visiting nurse or other home services: Yes Alcohol intake: current Alcohol intake frequency: a few times a week Alcohol type: beer Comment: Patient reports 3 beers in the afternoon and 1 mixed drink before bed, bon Patient Tobacco Use Status: Former Tobacco user Tobacco use type: Cigar e-Cigarette/Vaping Use: Former Use Advance Directives Date on File: 02/16/22 service: No Current occupational status: retired Cognitive needs: Yes (walker) Hearing needs: No Vision needs: Yes (rx glasses) Review of Systems Const Denies daytime sleepiness, Denies difficulty sleeping, Denies snoring, Denies stops breathing during sleep and Denies weakness Card Denies chest pain, Denies rapid heart rate, Denies irregular heart rhythm, Denies claudication, Reports leg edema, Denies lightheadedness, Denies palpitations, Denies dyspnea, Denies dyspnea on exertion, Denies orthopnea, Denies paroxysmal nocturnal dyspnea and Denies slow heart rate Resp Denies cough, Denies dyspnea, Denies dyspnea on exertion and Denies snoring GI Reports no additional complaints, Denies hematochezia, Denies change in stool character and Denies dyspepsia Musc Denies abnormal gait, Denies muscle weakness and Denies numbness Neuro Denies abnormal gait, Denies numbness and Denies weakness Endo Denies palpitations Physical Exam Vital Signs: Last Vital Signs Pulse 64 03/23/25 12:47 BP 110/50 L 03/23/25 12:47 BMI result Body Mass Index 21.1 Const General: cooperative, comfortable, no acute distress and other (Frail) Orientation/consciousness: patient oriented x3 HEENT Head: Yes normal to inspection Neck Neck: Yes normal visual inspection, Yes trachea midline and Yes supple Chest Chest palpation & inspection: normal inspection of the chest Resp Effort & Inspection: normal respiratory effort Auscultation: clear to auscultation bilaterally, no crackles, no rales, no rhonchi and no wheezes Cardio Jugular venous distension: no JVD Palpation: normal PMI Rate: regular rate Rhythm: regular rhythm Heart sounds: S1 normal heart sound present, S2 normal heart sound present, no click, no gallops, no murmurs and no rubs Peripheral pulses: Peripheral pulses 2+ throughout GI Inspection: Yes normal to inspection Palpation (GI): Soft to palpation Auscultation: normal bowel sounds Skin General skin exam: no rashes or lesions noted Neuro General: patient oriented x3 Extrem General: Yes normal to inspection, No calf tenderness and Yes edema (1+ nonpitting bilateral pedal edema) Psych Appearance: grossly normal Mental Status: mental status grossly normal Speech and movement: Normal speech and movement present Office Procedures EKG Details: EKG today showed atrial fibrillation, rate 64 beats per minute, right bundle branch block, anteroseptal infarct, nonspecific [place], [place] [id number], Complete Assessment & Plan Assessment & Plan (1) (HFpEF) heart failure with preserved ejection fraction: Code(s): I50.30 - Unspecified diastolic (congestive) heart failure Category: Medical Plan: Patient was in the hospital back in December for heart failure during after which patient's PCP started patient on metolazone. Patient in the was taking this regularly and patient developed KEN and hypokalemia as low as 2.2 after which metolazone was instructed to be taken as needed only. However, patient was still taking it with an increase in weight up to 2 lb of weight and his potassium was still low at 3.2. We had advised patient to take metolazone sparingly only on an as-needed basis for if patient gains 3 lb in a day or 5 lb in a week. We also increased his potassium to 40 mEq. Today, the states that patient has been doing well off the metolazone and she has not had to give this since his visit with us back in January. 12/18/2024-echo study showed decreased LV systolic function with an ejection fraction between 40-45%, severe biatrial enlargement, severe mitral annular calcification with emxoogax-xd-qzjqkq elevation in the right ventricular systolic pressure with elevated right atrial pressures. Today on exam, patient's lower leg edema has significantly improved and only has nonpitting bilateral pedal edema. Continue the same regimen. We will monitor his electrolytes and kidney function periodically. Advised low-salt diet, fluid restriction between 1.5-2 L, and daily weight monitoring. (2) Afib: Comment: on xarelto Code(s): I48.91 - Unspecified atrial fibrillation Category: Medical Plan: History of chronic AFib. Patient on Xarelto for full anticoagulation therapy. Continue the same. Continue metoprolol and digoxin for rate control management. No reported symptoms of bleeding or falls. Kidney function stable on recent labs. (3) CAD (coronary artery disease): Code(s): I25.10 - Atherosclerotic heart disease of [place] coronary artery without angina pectoris Category: Medical Plan: History of CABG in 2004. Clinically stable and without any anginal symptoms. Continue statin therapy with an LDL goal less than 70. Advised heart healthy diet, regular exercise as tolerated, med compliance, and management of vascular risk factors. Follow up in 4 months. In the interim, patient will call the office with any concerns or change in symptoms. This note was generated using voice recognition software. While every effort has been made to ensure accuracy and proper freelance photographer, there may be occasional errors that could affect the content or meaning of the described symptoms. Orders: Orders AMB EKG-In Office Today I48.91 - Unspecified atrial fibrillation Coding Level of Care Code Est Pt Level 4 (53845) Complex EM visit Add On G2211 Diagnoses (HFpEF) heart failure with preserved ejection fraction I50.30 Afib I48.91 CAD (coronary artery disease) I25.10 CPT Codes EKG - CPT: 15882-Tzmfjquenwspqugza, Complete ([id number]) Time Spent (min) 31 Comment Time spent in reviewing the chart, test results, assessment, counseling and documentation.
--- OUTSIDE RECORDS SUMMARY | 2025-03-23 16:30 | XMS_ITS | Encounter Summary ---
Author Organization [facility] Address [address] [place] [phone] Phone Care Team Providers Care Parking Lot Spotter Name Role Phone Pcp, Not Required Primary Care Provider Darek Monson MD Primary Care Provider Encounter Details Date Type Department Care Team (Late st Contact Info) Description 12/05/2020 Procedure Pass [facility] [address] [place] [address] Social History Tobacco Use Types Packs/Day Years [...] on filedocumented in this encounter Care Teams Parking Lot Spotter Relationship Specialty Start Date End Date Pcp, Not Required [address] [place] [id number] PCP - General 11/14/20 01/19/21 Darek Ronquillo MD [address] [place] [address] Dr RIVAS WILIAN Hernandez [id number] PCP - General Internal Medicine 01/20/21 documented as of this encounter Additional Source Comments The information contained in this document represents components of the legal health record. It is not the complete legal health record.[facility]
--- OUTSIDE RECORDS SUMMARY | 2025-03-23 16:30 | XMS_ITS | Encounter Summary ---
Author Organization [facility] Address [address] [facility] [address] [place] [address] Phone Care Team Providers Care Dredge Hand Name Role Phone Pcp, Not Required Primary Care Provider Darek Monson MD Primary Care Provider Encounter Details Date Type Department Care Team (Late st Contact Info) Description 12/02/2020 Procedure Pass [facility] [address] [place] [address] Social History Tobacco Use Types Packs/Day Years [...] 5:00 PM DYANAT Jackie Mcguire RN * Parker Suicide Severity Rating Scale (Screener/Recent Self-Report) Question [...] on filedocumented in this encounter Care Teams Dredge Hand Relationship Specialty Start Date End Date Pcp, Not Required [address] [place] [id number] PCP - General 11/14/20 01/19/21 Darek Ronquillo MD [address] [place] [address] [place] [address] PCP - General Internal Medicine 01/20/21 documented as of this encounter Additional Source Comments The information contained in this document represents components of the legal health record. It is not the complete legal health record.[facility]
--- OUTSIDE RECORDS SUMMARY | 2025-03-23 16:30 | XMS_ITS | Encounter Summary ---
Author Organization [facility] Address [address] [place] [address] Phone Care Team Providers Care Convolute Tube Winder Name Role Phone Pcp, Not Required Primary Care Provider Darek Monson MD Primary Care Provider Encounter Details Date Type Department Care Team (Late st Contact Info) Description 11/14/2020 Procedure Pass [facility] [address] [place] [address] Social History Tobacco Use Types Packs/Day Years [...] on filedocumented in this encounter Care Teams Convolute Tube Winder Relationship Specialty Start Date End Date Pcp, Not Required [address] [place] [address] PCP - General 11/14/20 01/19/21 Darek Ronquillo MD [address] [place] [address] Dr RIVAS WILIAN Hernandez [phone] PCP - General Internal Medicine 01/20/21 documented as of this encounter Additional Source Comments The information contained in this document represents components of the legal health record. It is not the complete legal health record.[facility]
--- OUTSIDE RECORDS SUMMARY | 2025-03-23 16:30 | XMS_ITS | Encounter Summary ---
Author Organization [facility] Address [address] [place] [address] Phone Care Team Providers Care Health Outcomes Liaison Name Role Phone Darek Ronquillo MD Primary Care Provider Encounter Details Date Type Department Care Team (Late st Contact Info) Description 04/05/2021 Procedure Pass [facility] - [facility] Main [place] [address] [place] [address] Social History Tobacco Use Types Packs/Day Years [...] on filedocumented in this encounter Care Teams Health Outcomes Liaison Relationship Specialty Start Date End Date Darek Ronquillo MD [address] [place] [address] Dr RIVAS WILIAN Hernandez [id number] PCP - General Internal Medicine 01/20/21 documented as of this encounter Additional Source Comments The information contained in this document represents components of the legal health record. It is not the complete legal health record.[facility]
--- OUTSIDE RECORDS SUMMARY | 2025-03-23 16:30 | XMS_ITS | Encounter Summary ---
Author Organization [facility] Address [address] [place] [address] Phone Care Team Providers Care Laundry Presser Name Role Phone Darek Ronquillo MD Primary Care Provider Encounter Details Date Type Department Care Team (Late st Contact Info) Description 04/05/2021 Procedure Pass [facility] - CT Main [place] [address] [place] [address] Social History Tobacco Use Types Packs/Day Years [...] on filedocumented in this encounter Care Teams Laundry Presser Relationship Specialty Start Date End Date Darek Ronquillo MD [address] [place] [address] Dr RIVAS WILIAN Hernandez [id number] PCP - General Internal Medicine 01/20/21 documented as of this encounter Additional Source Comments The information contained in this document represents components of the legal health record. It is not the complete legal health record.[facility]
--- OUTSIDE RECORDS SUMMARY | 2025-03-23 16:30 | XMS_ITS | Encounter Summary ---
Author Organization [facility] Address [address] [facility] [address] [place] [address] Phone Care Team Providers Care Art Museum Docent Name Role Phone Unknown, Unknown Primary Care Provider Gurmeet gutierrez Pcp, Not Required Primary Care Provider Darek Monson MD Primary Care Provider Encounter Details Date Type Department Care Team (Late st Contact Info) Description 09/26/2020 Procedure Pass [facility] - [facility] [address] [place] [address] Social History Tobacco Use Types Packs/Day Years [...] on filedocumented in this encounter Care Teams Art Museum Docent Relationship Specialty Start Date End Date Unknown, Unknown, MD PCP - General 08/30/20 11/13/20 Pcp, Not Required [address] [place] [address] PCP - General 11/14/20 01/19/21 Darek Ronquillo MD [address] [place] [address] Dr RIVAS David WILIAN [phone] PCP - General Internal Medicine 01/20/21 documented as of this encounter Additional Source Comments The information contained in this document represents components of the legal health record. It is not the complete legal health record.[facility]
--- OUTSIDE RECORDS SUMMARY | 2025-03-23 16:30 | XMS_ITS | Encounter Summary ---
Author Organization [facility] Address [address] [place] [address] Phone Care Team Providers Care Tongue And Groove Machine Setter Name Role Phone Darek Ronquillo MD Primary Care Provider Encounter Details Date Type Department Care Team (Late st Contact Info) Description 06/05/2022 Procedure Pass [facility], Ct Scan - [address] [address] Social History Tobacco Use Types Packs/Day Years [...] on filedocumented in this encounter Care Teams Tongue And Groove Machine Setter Relationship Specialty Start Date End Date Darek Ronquillo MD [address] [place] [address] Dr RIVAS WILIAN Hernandez [phone] PCP - General Internal Medicine 01/20/21 documented as of this encounter Additional Source Comments The information contained in this document represents components of the legal health record. It is not the complete legal health record.[facility]
--- OUTSIDE RECORDS SUMMARY | 2025-03-23 16:31 | XMS_ITS | Encounter Summary ---
Author Organization [facility] Address [address] [place] [address] Phone Care Team Providers Care Warehouse Insulation Worker Name Role Phone Darek Ronquillo MD Primary Care Provider Encounter Details Date Type Department Care Team (Late st Contact Info) Description 06/05/2022 Procedure Pass [facility], Ct Scan - [address] [address] Social History Tobacco Use Types Packs/Day Years [...] on filedocumented in this encounter Care Teams Warehouse Insulation Worker Relationship Specialty Start Date End Date Darek Ronquillo MD [address] [place] [address] Dr RIVAS WILIAN Hernandez [phone] PCP - General Internal Medicine 01/20/21 documented as of this encounter Additional Source Comments The information contained in this document represents components of the legal health record. It is not the complete legal health record.[facility]
--- OUTSIDE RECORDS SUMMARY | 2025-03-23 16:31 | XMS_ITS | Encounter Summary ---
Author Organization [facility] Address [address] [facility] [address] [place] [address] Phone Care Team Providers Care Remelt Worker Name Role Phone Darek Ronquillo MD Primary Care Provider Reason for Referral * MRI/CAT Scan - Closed Specialty Diagnoses / Procedures Referred By Renetta castelan Referred To Contact Radiology Diagnoses Maxillary sinus cancer Procedures CT Neck CHG CT NECK TISSUE CONTRAST Sharla De La Cruz MD [address] [place] [address], [facility] [address] [place] [address] Phone: tel: fax: mailto: Referral ID Status Reason Start Date Expiration Date Visits Re quested Visits Authorized [id number] Closed 06/12/2022 10/28/2022 1 1 * MRI/CAT Scan - Closed Specialty Diagnoses / Procedures Referred By Renetta castelan Referred To Contact Radiology Diagnoses Maxillary sinus cancer Disorientation, unspecified Procedures CT Head CHG CT SCAN HEAD CONTRAST CHG CT SCAN HEAD COMBO Sharla De La Cruz MD [address] [place] [address], [facility] [address] [place] [address] Phone: tel: fax: [email or web address] Referral ID Status Reason Start Date Expiration Date Visits Re quested Visits Authorized [id number] Closed 06/12/2022 10/28/2022 1 1 Encounter Details Date Type Department Care Team (Late st Contact Info) Description 06/05/2022 Transcribe Orders Virtual Department [address] [place] [address] Sharla De La Cruz MD [address] [facility], [address] [place] [address] Maxillary sinus cancer (Primary Dx) Social History [...] right lateral rhinotomy and maxillectomy, with mild ocx-jkqw-tyhu soft tissue enhancement in the inferior aspect [...] sinonasal squamous cell carcinoma. There is mild yof-jxyt-idrb soft tissue enhancement in the inferior aspect [...] and sinonasal squamous cell carcinoma. There is ryffesy-cdqv-rttb soft tissue enhancement in the inferior aspect [...] prior right lateral rhinotomy andmaxillectomy, with mild fie-kxxt-hakt soft tissue enhancement in theinferior aspect of the right maxillary sinus fossa, most likelyrepresenting mucosal thickening. No definite evidence of enhancing mass. Sharla Diaz MD IMG CT HEAD/NECK Final Result documented in this encounter Visit Diagnoses Diagnosis Maxillary sinus cancer- Primary Maxillary sinus cancer documented in this encounter Care Teams Remelt Worker Relationship Specialty Start Date End Date Darek Ronquillo MD [address] [place] [address] [place] [address] PCP - General Internal Medicine 01/20/21 documented as of this encounter Additional Source Comments The information contained in this document represents components of the legal health record. It is not the complete legal health record.[facility]
--- OUTSIDE RECORDS SUMMARY | 2025-03-23 16:32 | XMS_ITS | Patient Health Record ---
Author Organization [facility] Address [address] [facility] [place] [address] Care Team Providers Care Applied Research Director Name Role Phone ChristianoGary Primary Care Provider Ariadne Long [phone] Allergies Allergen (clinical drug ingredient) Drug/Non Drug [...] atherosclerosis of arteries of lower limbs (disorder) (02972319507451746 ) Atherosclerosis of artery of both lower extremities (I70.203) Active confirmed Problem Ulcer of left heel (disorder) (61102112636157828 ) Skin ulcer of left heel, limited to breakdown of skin (L97.421) Active confirmed Vital Signs Blood pressure diastolic 60 mm Hg 01/26/2025 Height 5 ft 11 in in 01/26/2025 Blood pressure systolic 120 mm Hg 01/26/2025 Weight 176 lbs 01/26/2025 BMI 24.54 kg/m2 01/26/2025 Encounters Encounter Location Date Provider Diagnosis [address] [address] 04/29/2024 Ariadne Perica Atherosclerosis of artery of both lower extremities I70.[address] [address] 07/21/2024 Ariadne Perica Atherosclerosis of artery of both lower extremities I70.[address] [address] 10/21/2024 Ariadne Perica Atherosclerosis of artery of both lower extremities I70.[address] [place] [address] 01/26/2025 Ariadne Mercedes Atherosclerosis of artery of [...] Provider Name:Ariadnedean ordoñez, 05/04/2025 11:15:00 AM, [address] [place], [address], Insurance Providers Payer Name Payer Address Payer Phone Subscriber Number Group Number Insured Name Patient Relationship to Insured Coverage Start Date Coverage End Date [facility] [address] [place] [address] [id number] Hector Diaz Self - patient is the [...]
--- OUTSIDE RECORDS SUMMARY | 2025-03-23 16:33 | XMS_ITS | Encounter Summary ---
Author Organization [facility] Address [address] [facility] [address] [place] [address] Phone Care Team Providers Care Heating Systems Installer Name Role Phone Pcp, Not Required Primary Care Provider Darek Monson MD Primary Care Provider Encounter Details Date Type Department Care Team (Late st Contact Info) Description 01/11/2021 Ancillary Orders [facility],Outside Imaging [address] [place] [address] System, Provider Not In, [facility] [employer] [address] [address] Social History Tobacco Use Types Packs/Day Years [...] on filedocumented in this encounter Care Teams Heating Systems Installer Relationship Specialty Start Date End Date Pcp, Not Required [address] [place] [address] PCP - General 11/14/20 01/19/21 Darek Ronquillo MD [address] [place] [address] [place] [address] PCP - General Internal Medicine 01/20/21 documented as of this encounter Additional Source Comments The information contained in this document represents components of the legal health record. It is not the complete legal health record.[facility]
--- OUTSIDE RECORDS SUMMARY | 2025-03-23 16:33 | XMS_ITS | Clinical Summary ---
Author Organization [facility] Address [address] [facility] [address] [place] [address] Phone Care Team Providers Care Transportation Logistics Internship Name Role Phone Darek Ronquillo MD Primary [...] Active vitamins A,C,E-zinc-cata er (PRESERVISION AREDS) [id number] wvyx-wr-uzof Cap Take 1 capsule by mouth 2 [...] SMOKING Hx and SMOKELESS TOBACCO SCREENING 1958 PNEUMOCOCCAL VACCINES (50+ years) (1 of 2 - PCV) 1964 ZOSTER VACCINES (1 of 2) 1964 RSV VACCINE (1 - 1-dose 75+ series) 2020 CREATININE LEVEL 12/05/2021 12/05/2020, , 12/03/2020, Additional history exists POTASSIUM LEVEL 12/05/2021 12/05/2020, 11/07, 12/03/2020 INFLUENZA VACCINE (#1) 2025 05/12/2019 COVID-19 VACCINE ( - season) 2025 09/03/2020, 08/13/2020 HEPATITIS A VACCINES Aged Out [...] this topic Medical Devices Implanted Type Area Packaging Machine Operator Device Identifier Shelf Expiration Date Model / Serial / Lot Cannula Lewis Lacr Without Bx 3ea Bx/3ea - [id number] Implanted:Qty: 1 on 12/02/2020 by Chavo Varner MD, FACS at [facility] [employer] 05/06/2021 [id number] / / [id number] Procedures Procedure Name Priority Date/Time Associated Diagnosis Comments BASIC METABOLIC PANEL Routine 12/05/2020 5:51 AM EDT from Last 3 Months or Most Recently Relevant to Health Maintenance Results * (ABNORMAL) Basic metabolic panel (12/05/2020 5:51 AM EDT) SODIUM 144 135 - 145 mmol/L [facility] CHLORIDE 107 100 - 108 mmol/L [facility] POTASSIUM 4.3 3.5 - 5.0 mmol/L [facility] CO2 30 23 - 31.9 mmol/L [facility] BUN 24 8 - 25 mg/dL [facility] CREATININE 0.79 0.6 - 1.5 mg/dL [facility] GLUCOSE 159(H) 70 - 110 mg/dL [facility] CALCIUM 8.9 8.5 - 10.5 mg/dL [facility] EGFR 88 >59 mL/min/1. 73m2 [facility] Comment:Estimated glomerular filtration rate calculated using the CKD-EPI equation. ANION GAP 7 3 - 15 mmol/L [facility] Blood 12/05/2020 5:51 AM EDT 12/05/2020 6:15 AM EDT Chavo Varner MD, FACS LAB BLOOD [place]AB[place] [address], [facility] from Last 3 Months or Most Recently Relevant to Health Maintenance Insurance [employer] H[employer] RE[employer]ACEMENT [employer] H[employer] REPLACEMENT [employer] H[employer] REPLACEMENT [employer] H[employer] REPLACEMENT [employer] H[employer] REPLACEMENT [employer] HMO REPLACEMENT [facility] MEDICARE HMO REPLACEMENT [employer] H[employer] REPLACEMENT Advance Directives For more information, please contact: [phone] (9AM - 5PM [facility], Saturday-Saturday) Documents on File Type Date Recorded Patient Geophysical Laboratory Chief Expl anation Healthcare Proxy 12/07/2020 12:45 PM * Full Code (Latest Code Status on File) Date Activated Date Inactivated Comments 12/02/2020 4:51 PM Question Answer Comments Code Status Confirmed With: Patient Care Teams Transportation Logistics Internship Relationship Specialty Start Date End Date Darek Ronquillo MD [address] [place] [address] [place] [address] PCP - General Internal Medicine 01/20/21 Additional Source Comments The information contained in this document represents components of the legal health record. It is not the complete legal health record.[facility]
--- OUTSIDE RECORDS SUMMARY | 2025-03-23 16:33 | XMS_ITS | Clinical Summary ---
Author Organization [facility] [address] [facility] Address [address] [place] [address] Phone Care Team Providers Care Interlocking Tower Operator Name Role Phone Darek Ronquillo MD Primary Care Provider [phone] Allergies Active Allergy Reactions Criticality Noted Date [...] Do not crush, chew, or split. Active ki-xwj-VG-vit W-ixvqlx-txsomvb (PreserVision AREDS 2 Plus MV) 200 mcg-15 [...] thoracentesis. Alternatively he could follow-up with his foundation drill operator helper and see if any adjustments in his medications would simply resolve the problem. He is currently on Bumex. His preference is to follow-up with his foundation drill operator helper at [place] and I will make sure to send [...] general and how their size, shape, and overcaster time affect her level of suspicion for [...] general and how their size, shape, and overcaster time affect her level of suspicion for [...] follow-up on pleural effusion. Ascending aortic aneurysm ([facility] V24) 06/12/20 Overview (08/10/2024): [...] will continue to monitor this. Aortic aneurysm ([facility] V24) 12/21/2020 Overview (08/10/2024): Last Assessment & Plan: sinus of Valsalva 4.3 cm, ascending aorta 4.5 cm, transverse aorta at 4.5 cm. Blood pressure is stable. Continue metoprolol. We will continue to monitor yearly. Chronic atrial fibrillation ([facility] V24, [facility] V28) 12/21/2020 Overview (08/10/2024): Last Assessment & Plan: He presents in a rate controlled atrial fibrillation. He will continue metoprolol and diltiazem at current doses. His CXV2HZ1-XZTv score is elevated at 5(age, CHF, HTN, [...] Continue regimen as above. Peripheral vascular disease ([facility] V24) 2020 Overview (08/10/2024): [...] PM EDT Office Visit Thoracic Surgery - [address] [place] [address] Mamadou Doss MD Pulmonary nodule (Primary Dx) 02/11/2025 12:55 PM EDT - 02/11/2025 11:59 PM EDT Hospital Encounter [facility] CT Scan [address] [place] [address] Pulmonary nodule; Pleural effusion Discharge [...] History Medical History Date Comments Atrial fibrillation ([facility] V24, [facility] V28) 09/30/2023 DX:Atrial fibrillation ([facility]) Anemia 09/30/2023 DX:Anemia Mixed hyperlipidemia 09/30/2023 DX:Mixed hy perlipidemia Peripheral vascular disease ([facility] V24) 09/30/2023 DX:Peripheral vascular disea se ([facility]) COPD (chronic obstructive pu lmonary disease) ([facility] V24, [facility] V28) 09/30/2023 DX:COPD (chronic o bstructive pulmonary disease) ([facility]) Essential (primary) hypertension 09/30/2023 [...] polyps Thoracic aortic aneurysm wit hout rupture ([facility] V24) DX:Thoracic aortic aneurysm without rupture ([facility]) Basal cell carcinoma of skin , unspecified DX:Basal cell carcinoma of s kin, unspecified Vitamin D deficiency DX:Vitamin D deficiency Paroxysmal atrial fibrillati on ([facility] V24, [facility] V28) DX:Paroxysmal atrial fibril lation (HCC) Encounter for screening for malignant neoplasm of rectum DX:Encounter for screening f or malignant neoplasm of rectum Personal history of nicotine dependence DX:Personal history of nicot ine dependence Chronic diastolic (congestiv e) heart failure ([facility] V24, [facility] V28) DX:Chronic diastoli c [...] Hypertension/CHF/CAD Annual BMP Blood Test 01/01/2023 01/01/2022 Depression Screening 07/08/2024 COVID-19 Vaccine ( season) 2025 05/03/2023, 04/11/2021, 09/03/2020, Additional history exists Influenza Vaccine (#1) 2025 , 04/19/2021, 05/12/2019 [...] right effusion smaller since 08/31/24. [place] ([id number]) -------- FINAL REPORT -------- Dictated By: Nova Thomas Dictated Date: 02/15/2025 14:23 ET Assigned Physician: Nova Thomas Reviewed and Electronically Signed By: Nova Thomas Signed Date: 02/15/2025 14:35 ET Workstation ID: [id number] Transcribed By: Self Edit Transcribed Date: 02/15/2025 14:23 ET Narrative 02/15/2025 2:35 PM EDT History: Follow-up pulmonary nodule. Comparison: 08/31/24, 09/05/23 Technique: Helical volumetric imaging of the thorax was performed without IV contrast. DLP: 756.76 mGy/cm Expect LabsT Iterative reconstruction technique Findings: The right apical [...] was performed withoutIV contrast. DLP: 756.76 mGy/cm Fe3 Medical[employer]ed VCT Iterative reconstruction technique Findings: The right [...] the right effusionsmaller since 08/31/24. Teleelvia LARSON ([id number]) -------- FINAL REPORT -------- Dictated By: Nova Thomas Dictated Date: 02/15/2025 14:23 ET Assigned Physician: Nova Thomas Reviewed and Electronically Signed By: Nova Thomas Signed Date: 02/15/2025 14:35 ET Workstation ID: [id number] Transcribed By: Self Edit Transcribed Date: 02/15/2025 14:23 ET Kaley LARSON IMG CT PROCEDURES Final Resul t * Annual BMP Blood Test (01/01/2022) Annual BMP Blood Test abstracted Historical Provider HEALTH MAINTENANCE Final Result from Last 3 Months or Most Recently Relevant to Health Maintenance Insurance WILLIAM WILIAN KRUEGER [id number] [employer] [place] [address] [place] [phone] Care Teams Interlocking Tower Operator Relationship Specialty Start Date End Date Darek Ronquillo MD [address] [place] [address] Dr Navdeep [place] PCP - General 03/01/08
--- OUTSIDE RECORDS SUMMARY | 2025-03-23 16:33 | XMS_ITS | Patient Health Record ---
Author Organization [facility] Address [address] [place] [address] Care Team Providers Care Nursing Information Systems Coordinator Name Role Phone Shima (RETIRED) Darek REHMAN Primary Care Provide r Soren Jacob Jr Unavailable [phone] Allergies No Known Allergies Reason For [...] Problem Status W/U Status Risk Notes Problem 47721303 Heme positive stool (R19.5) Active confirmed Problem Gastritis (8003038) Gastritis (K29.70) Active confirmed Problem 276573390 Anemia, unspecified type (D64.9) Active confirmed Vital Signs Temperature 97.5 degrees Fahrenheit 08/10/2024 Blood pressure diastolic 00 mm Hg 08/10/2024 Height 5 ft 11 in in 08/10/2024 Blood pressure systolic 000 mm Hg 08/10/2024 Weight 180 lbs 08/10/2024 BMI 25.10 kg/m2 08/10/2024 Procedures Procedure Date Ordered Date Performed Result Body Sit e VIDEO CAPSULE ENDOSCOPY 10/06/2024 N/A Encounters Encounter Location Date Provider Diagnosis [facility] [address] [place] [phone] 08/10/2024 Soren Boothe Jr Anemia, unspecified type D64.9 [facility] [address] [place] [phone] 08/04/2024 Soren Boothe Jr [facility] [address] [place] [phone] 10/06/2024 Soren Boothe Jr Anemia, unspecified type D64.9 and Heme positive stool R19.5 [facility] [address] [place] [phone] 11/05/2024 Soren Boothe Jr [facility] [address] [place] [phone] 01/18/2025 Soren Boothe Jr Assessments Encounter Date [...] Coverage Start Date Coverage End Date [facility] [address] [place] [address] [phone] [id number] STEFFEN ANTHONY Self - patient is the insured Medical (General) History Medical History History ICD Code Hypotension Coronary artery disease with heart failu re/preserved ejection fraction Atrial fibrillation Anemia Right maxillary sinus tumor, surgery at [facility] General Surgical History Surgery Date(Month/Year) Coronary artery bypass grafting
== END 2025-03-23 13:11 | disposition home or self-care (01) ==
LOC: HO.HCS 12:30
PROVIDERS: PCP Internal Medicine
DX: I50.30 Unspecified diastolic (congestive) heart failure (principal); I48.91 Unspecified atrial fibrillation; I25.10 Atherosclerotic heart disease of native coronary artery without angina pectoris
CPT/HCPCS: 93010; 99214; G2211

== ENCOUNTER → 2025-03-23 12:30 | Outpatient (BNVA) | payer MEDICARE, SELFPAY | PROVIDERS: PCP Internal Medicine | DX: I25.10 Atherosclerotic heart disease of native coronary artery without angina pectoris (principal); I48.91 Unspecified atrial fibrillation; I50.30 Unspecified diastolic (congestive) heart failure | CPT/HCPCS: 93005; 99212 ==

== ENCOUNTER 2025-03-27 23:16 | Emergency (ER) | payer MEDICARE, SELFPAY ==
--- OUTSIDE RECORDS SUMMARY | 2025-01-25 09:35 | XMS_ITS ---
Author Organization [facility] Address [address] [place] [address] Care Team Providers Care Manager Financial Systems Name Role Phone Shima (RETIRED) Darek REHMAN Primary Care Provide r Leigh Boothe Jr, Soren Abraham REASON FOR VISIT Patient presents today for bleeding? Encounters Encounter Location Date Provider Diagnosis [facility] [address] [place], [place] [address] [address] 01/25/2025 Soren Boothe Jr Plan Of Treatment No Information Progress Notes * STEFFEN ANTHONYDOB:1945 ( 80 yo M)Acc No.[id number]:01/25/2025 Progress Notes Patient: STEFFEN KENNEDY Provider: Keira Boothe MD :1945 A ge:79 Y S ex:Male Date:01/25/2025 Address:[address] [place] [address] [id number] Pcp:Darek Ronquillo (RETIRED )MD Subjective: * Chief [...] 01/25/2025 Generated for Printi ng/Faxing/eTransmitting on: 0 03/28/2025 12:37 AM EDT
--- NOTE | ~2025-03-27 | CT_ITS ---
CLINICAL HISTORY: fall CT cervical spine without contrast Comparison: None provided Findings: No acute fracture of the cervical spine. Anterior cortex lucency of the of the left 1st rib is favored to be due to vessel channel. Additional left lateral 1st rib deformity appears old/chronic in the tbwxl-lz-jhnz. Multiple additional vessel channels are noted. Straightening of the cervical lordosis. No significant listhesis. Ligament calcifications, osteophytes, disc osteophyte complexes, and facet arthropathy are multifocal, with mild spinal canal stenosis at C5-C6. Foraminal narrowing is multifocal including moderate to severe at C5-C6 by CT. Gas phenomenon includes right C3-C4 facet. Pleural effusions partially imaged in the qcfxv-oh-mwxb with underlying atelectasis. Emphysematous changes and scarring of the imaged lung apices. Imaged trachea, pharynx, and esophagus are mildly patulous vascular calcifications noted. IMPRESSION: 1. No acute fracture of the cervical spine. 2. Bilateral pleural effusions are partially imaged. Please consider dedicated thoracic imaging such as chest CT, if clinically indicated. This document has been electronically signed by: Hector Verma MD on 03/28/2025 02:59:21
--- NOTE | ~2025-03-27 | CT_ITS ---
CLINICAL HISTORY: FALL HEAD STRIKE ON AC CT head without contrast Comparison: None provided Findings: No acute intracranial hemorrhage. 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 No large arterial territorial infarction by CT. Mild-moderate white matter pathology is nonspecific and likely due to combination of the small-vessel ischemic disease and wallerian degeneration. Vascular calcifications noted. No midline shift or hydrocephalus. Mild volume loss is generalized. Soft tissue swelling and scalp hematoma including of the left parietal convexity with scalp nirmal. No underlying acute parietal bone fracture. Right nasal bone deficiency and absent garrison of the right orbit or likely partial procedural with partially imaged right maxillary sinus resection. Fluid and mucosal thickening present in the remaining right maxillary sinus in the hjhvs-my-sgkb. Trace mastoid effusions. IMPRESSION: 1. No acute intracranial abnormality by CT. 2. Soft tissue swelling of the scalp hematoma including of the left parietal convexity. No underlying acute skull fracture. This document has been electronically signed by: Hector Verma MD on 03/28/2025 03:01:02
--- NOTE | ~2025-03-27 | XR_ITS ---
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 No acute displaced fracture. Low bone mineralization suggested. Vascular calcifications are multifocal. IMPRESSION: 1. No acute fracture. 2. 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 This document has been electronically signed by: Hector Verma MD on 03/28/2025 00:47:09
[2025-03-27 23:25] VITALS: BP 113/56; PULSE 77; RESP 16; TEMP 36.9; O2SAT 95; BMI 23.0
[2025-03-28 00:07] LABS: Hematocrit 27.3 % (42.0-52.0); Hemoglobin 9.1 g/dl (14.0-18.0); Imm Gran Abs Auto 0.03 X10*3/uL (0.00-0.03); Imm Gran Pct Auto 0.6 % (0.0-0.4); Lymphocytes Absolute Auto 1.1 X10*3/uL (1.2-4.9); Mean Corpuscular HGB Conc 33.3 g/dl (31.0-36.0); Mean Corpuscular Hemoglobin 34.2 pg (27.0-33.0); Mean Corpuscular Volume 102.6 fL (80.0-98.0); NRBC Abs Auto 0.000 X10*3/uL (0.0-0.012); NRBC Pct Auto 0.0 /100WBC (0.0-0.2); Platelet Count 177 X10*3/uL (160-400); Red Blood Count 2.66 X10*6/uL (4.60-5.80); White Blood Count 5.1 X10*3/uL (4.8-10.8)
[2025-03-28 00:08] LABS: MANUAL DIFF FLAG NO
--- NOTE | 2025-03-28 00:11 | ED_ITS ---
HPI - Fall General Chief Complaint: Fall Stated Complaint: fall w/ head strike Time Seen by Provider: 03/27/25 23:48 History of Present Illness ED Provider: Storm Tomlin MD HPI Narrative: 80-year-old male with a fall after losing his balance trying to use the urinal. Head strike on the heat or. Unclear LOC. had lack elbow abrasion. Patient is on anticoagulation Related Data Home Medications ?Medication ?Instructions ?Recorded ?Confirmed atorvastatin 40 mg tablet 40 mg PO DAILY@1700 03/19/22 03/23/25 fenofibrate nanocrystallized 145 145 mg PO DAILY@0700 03/19/22 03/23/25 mg tablet dutasteride 0.5 mg capsule 0.5 mg PO DAILY@1700 03/23/25 (Avodart) cholecalciferol (vitamin D3) 10 10 mcg PO DAILY@0700 0 09/05/23 03/23/25 mcg (400 unit) tablet ferrous sulfate 325 mg (65 mg 325 mg PO BID@0700,1700 09/05/23 03/23/25 iron) tablet vit C 250 mg-vit E 90 mg-zinc 40 1 tab PO BID@1200,170 0 09/05/23 03/23/25 mg-copper 1 wg-qfmqjw-jmjxez capsule (PreserVision AREDS-2) digoxin 125 mcg (0.125 mg) tablet 125 mcg PO SUMOTUTHF R 09/29/24 03/23/25 midodrine 2.5 mg tablet 2.5 mg PO TID@0700,1200,1700 12/17/24 03/23/25 rivaroxaban 20 mg tablet (Xarelto) 20 mg PO DAILY@1700 12/17/24 03/23/25 Previous Rx's ?Medication ?Instructions ?Recorded bumetanide 2 mg tablet 2 mg PO BID@0700,1700 90 day s #180 02/20/24 tabs metolazone 2.5 mg tablet 2.5 mg PO MOWEFR PRN Increas ed 01/09/25 weight #30 tabs metoprolol succinate 25 mg 25 mg PO DAILY@1700 #90 tab s 01/25/25 tablet,extended release 24 hr omeprazole 20 mg capsule,delayed 20 mg PO DAILY@0630 # 90 caps 02/18/25 release potassium chloride 20 mEq 40 meq (2 x 20 mEq) PO QAM # 180 03/18/25 tablet,extended release tabs Allergies Allergy/AdvReac Type Severity Reaction Status Date / Time hydromorphone (From Dilaudid) AdvReac Confusion Verified 03/27/25 23:29 [facility] Past Medical History Medical History Metabolic alkalosis Gastritis Gross hematuria Chronic atrial fibrillation (HFpEF) heart failure with preserved ejection fraction Low blood pressure Anemia Acute congestive heart failure Acute upper gastrointestinal bleeding Acute blood loss anemia COPD (chronic obstructive pulmonary disease) Hyperlipidemia Afib Nasal sinus tumor CAD (coronary artery disease) Surgical History Hx of CABG Family History Family History Mother No problems noted. Father No problems noted. Social History Social History Household Members: Spouse Housing: House Do you presently have visiting nurse or other home services: Yes Alcohol intake: current Alcohol intake frequency: 0-2 drinks per day Alcohol type: beer Comment: Patient reports 3 beers in the afternoon and 1 mixed drink before bed, bon Patient Tobacco Use Status: Former Tobacco user Tobacco use type: Cigar e-Cigarette/Vaping Use: Former Use Advance Directives Date on File: 02/16/22 service: No Current occupational status: retired Cognitive needs: Yes (walker) Hearing needs: No Vision needs: Yes (rx glasses) Physical Exam 2 Exam: Exam: EXAM: Gen: Alert, awake, well appearing, well hydrated. Head: Superficial laceration involving just the skin and subcutaneous tissue left parietal region about 2.5 cm. No active bleeding. No underlying cranial step-off. No other head injuries Eyes: Anicteric, Normal conjunctiva. ENT: Moist mucosa, no pallor. ? Neck: Supple. Skin: ?No observable rash or bruising on exposed or examined skin Respiratory: Breathing comfortably, No distress.Clear to auscultation bilaterally, symmetric chest expansion, No wheeze, rales, ronchi. Cardiovascular: Regular rate and rhythm. No murmurs or rub. Well perfused periphery, warm extremities. No edema. ? Abdominal: No focal tenderness. Soft, no objective distension. No palpable masses or obvious organomegaly. ?No guarding, no rebound tenderness or other peritoneal findings. : No flank tenderness. Neuro: Alert. Gross movement of all extremities intact. ?No motor deficits or sensory deficits. Face symmetric. Clear speech at baseline without aphasia per daughter at the bedside. Psych: Calm. Cooperative. MSK: No grossly visible deformity. Skin tear large area over the left distal upper arm no lacerations. Vital signs: See flowsheet Vital Signs: Vital Signs: Last Vital Signs Temp 98.5 F 03/28/25 07:00 Pulse 77 03/28/25 07:00 Resp 16 03/28/25 07:00 BP 113/56 L 03/28/25 07:00 Pulse Ox 95 03/28/25 07:00 O2 Del Method Room Air 03/28/25 07:00 BMI result Body Mass Index 23.0 Procedures Laceration Laceration 1: Site: scalp Side (If applicable): left Description: linear Depth: simple, single layer Pre-repair: wound explored and irrigated extensively Number of closing items:: 5 Technique: nirmal Medical Decision Making Medical Decision Making MDM Narrative: Medical Decision Makin-year-old male on anticoagulation with fall sounds nonsyncopal based on the report. Suffered a head strike and laceration which was repaired. Head and C-spine CT without acute significant traumatic injuries. Large skin tear of the left arm with dressed with Xeroform. No underlying bony injury on elbow x-ray. Labs reassuring Preliminary Favored Differential Diagnosis: Head laceration, ICH, cervical spine injury, skin tear, orthostasis, vasovagal, mechanical fall among additional considered etiologies Testing Interpreted Independently: ?See below for details Radiology or Lab testing Results Reviewed: ?See below for details Consults: ?See below for details Independent Historians/External Chart Reviews: ?See below for details Social Determinants of Health Impacting MDM/Planning: ?See below for details Lab Data 03/28/25 00:02 03/28/25 00:02 Labs: Lab Results 03/28/25 03/28/25 Range/Units 00:02 00:06 WBC 5.1 (4.8-10.8) X10*3/uL RBC 2.66 L (4.60-5.80) X10*6/uL Hgb 9.1 L (14.0-18.0) g/dl Hct 27.3 L (42.0-52.0) % MCV 102.6 H (80.0-98.0) fL MCH 34.2 H (27.0-33.0) pg MCHC 33.3 (31.0-36.0) g/dl RDW 19.9 H (11.0-16.0) % Plt Count 177 D (160-400) X10*3/uL MPV 10.2 (9.4-12.4) fL Immature Gran % (Auto) 0.6 H (0.0-0.4) % Neut % (Auto) 64.2 (45-73) % Lymph % (Auto) 21.2 (20-40) % [place] % (Auto) 12.0 H (2-11) % Eos % (Auto) 1.2 (0-4) % Baso % (Auto) 0.8 (0-2) % Lymph # (Auto) 1.1 L (1.2-4.9) X10*3/uL [place] # (Auto) 0.6 (0.1-1.2) X10*3/uL Eos # (Auto) 0.1 (0.0-0.4) X10*3/uL Baso # (Auto) 0.0 (0.0-0.2) X10*3/uL Abs Immat Gran (auto) 0.03 (0.00-0.03) X10*3/uL Absolute Neuts (auto) 3.3 (2.0-8.3) x10*3/uL Absolute Nucleated RBC 0.000 (0.0-0.012) X10*3/uL Nucleated RBC % (auto) 0.0 (0.0-0.2) /100WBC PT 26.8 H (10.9-12.4) SEC INR 2.3 H (0.9-1.1) Sodium 138 (135-145) mmol/L Potassium 3.4 (3.3-5.1) mmol/L Chloride 102 (96-108) mmol/L Carbon Dioxide 28 (22-29) mmol/L Anion Gap 11 L (12-20) BUN 18 H (9-16) mg/dL Creatinine 1.08 (0.5-1.4) mg/dL Estim Creat Clear Calc 57.7 Estimated GFR > 60 Random Glucose 108 (60-115) mg/dL Calcium 9.3 (8.4-10.2) mg/dL Total Bilirubin 0.8 (0.0-1.0) mg/dL AST 38 H (5-37) U/L ALT 7 (0-40) U/L Alkaline Phosphatase 40 (39-117) U/L Total Protein 6.1 L (6.5-8.0) g/dL Albumin 3.4 L (3.5-5.0) g/dL Urine Color Yellow Urine Appearance Clear Urine pH 7.0 (5.0-9.0) Ur Specific [place] <= 1.005 (1.005-1.025) Urine Protein 100 (2+) H (Neg-Trace) mg/dL Urine Glucose (UA) Negative (Negative) mg/dL Urine Ketones Negative (Negative) mg/dL Urine Blood Small (1+) H (Negative) Urine Nitrite Negative (Negative) Ur Leukocyte Esterase Negative (Negative) Urine RBC 6-10 H (0-2) /HPF Urine WBC 0-5 (0-5) /HPF Ur Squamous Epith Cells 0-2 (0-2) /HPF Urine Bacteria None Seen (None Seen) Hyaline Casts 0-2 (0-2) /LPF Discharge Plan Discharge Clinical Impression: Laceration of scalp Patient Disposition: Home, Self-Care Instructions: Laceration (ED) Additional Instructions: _ DISCHARGE DIAGNOSES: Head strike with laceration of the scalp repaired with nirmal. Skin tear HISTORY OF PRESENTATION: ?Fall EMERGENCY DEPARTMENT COURSE,TESTS, TREATMENTS: While in the ED today you had evaluation with CT head and cervical spine, lab work. You had 5 nirmal placed a left parietal scalp and a Xeroform dressing which is an antibiotic protective dressing over the left upper arm DISCHARGE MEDICATIONS: ?[We have made no changes to your regular medication regimen] FOLLOW-UP: ?Call your primary or general physician soon as possible to discuss your symptoms, your ED visit and to discuss follow up plans Call your primary doctor you will need to have nirmal removed in approximately 7-10 days and we would like to have your skin tear wound evaluated in about 48- 72 hours to make sure there was no signs of infection or other complication. INSTRUCTIONS ?& RETURN PRECAUTIONS: If any symptoms change first call your primary physician, if it is after-hours your primary doctors office should have a provider ton container shipper you can speak with. If the symptoms are severe or very concerning to you then call 911 or return to the ED. Storm Tomlin MD Emergency Physician [facility] Prescriptions: No Action bumetanide 2 mg tablet 2 mg PO BID@0700,1700 90 Days Qty: 180 3RF metoprolol succinate 25 mg tablet extended release 24 hr 25 mg PO DAILY@1700 Qty: 90 1RF omeprazole 20 mg capsule,delayed release(DR/EC) 20 mg PO DAILY@0630 Qty: 90 1RF potassium chloride 20 mEq tablet extended release 40 meq PO QAM Qty: 180 3RF fenofibrate nanocrystallized 145 mg tablet 145 mg PO DAILY@0700 atorvastatin 40 mg tablet 40 mg PO DAILY@1700 midodrine 2.5 mg tablet 2.5 mg PO TID@0700,1200,1700 Xarelto 20 mg tablet 20 mg PO DAILY@1700 metolazone 2.5 mg tablet 2.5 mg PO MOWEFR PRN (Reason: Increased weight) Qty: 30 0RF Rx Instructions: If your weight goes up by 2 Ibs in 24 hours ferrous sulfate 325 mg (65 mg iron) tablet 325 mg PO BID@0700,1700 cholecalciferol (vitamin D3) 10 mcg (400 unit) Tablet 10 mcg PO DAILY@0700 PreserVision AREDS-2 250-90-40-1 mg Capsule 1 tab PO BID@1200,1700 dutasteride [Avodart] 0.5 mg capsule 0.5 mg PO DAILY@1700 digoxin 125 mcg (0.125 mg) tablet 125 mcg PO SUMOTUTHFR Rx Instructions: non on WED and SAT Interventions: ED Discharge Assessment Last Done: 03/28/25 07:00 Discharge Date/Time: 03/28/25 04:00 Print Language: Thai
[2025-03-28 00:13] LABS: INTERNATIONAL NORM RATIO 2.3 (0.9-1.1); Prothrombin Time 26.8 SEC (10.9-12.4)
[2025-03-28 00:14] LABS: Appearance Urine Clear; Glucose Urine UA Negative (Negative); PH 7.0 (5.0-9.0); Specific Gravity - Urine <= 1.005 (1.005-1.025); UMIC TRIGGER UACC YES
[2025-03-28 00:23] LABS: Alanine Aminotransferase 7 U/L (0-40); Albumin Level 3.4 g/dL (3.5-5.0); Alkaline Phosphatase 40 U/L (39-117); Anion Gap 11 (12-20); Aspartate Amino Transferase 38 U/L (5-37); Blood Urea Nitrogen 18 mg/dL (9-16); Calcium 9.3 mg/dL (8.4-10.2); Carbon Dioxide 28 mmol/L (22-29); Chloride 102 mmol/L (96-108); Creatinine Clr Calc Pharmacy 57.7; Estimated Glomerular Filt Rate > 60; Potassium 3.4 mmol/L (3.3-5.1); Sodium 138 mmol/L (135-145); Total Protein 6.1 g/dL (6.5-8.0)
--- OUTSIDE RECORDS SUMMARY | 2025-03-28 00:37 | XMS_ITS | Encounter Summary ---
Author Organization [facility] Address [address] [place] [address] Phone Care Team Providers Care Acid Remover Name Role Phone Darek Ronquillo MD Primary Care Provider Encounter Details Date Type Department Care Team (Late st Contact Info) Description 04/05/2021 Procedure Pass [facility] [place] [address] [place] [address] Social History Tobacco Use Types Packs/Day Years [...] on filedocumented in this encounter Care Teams Acid Remover Relationship Specialty Start Date End Date Darek Ronquillo MD [address] [place] [address] Dr RIVAS [place] [id number] PCP - General Internal Medicine 01/20/21 documented as of this encounter Additional Source Comments The information contained in this document represents components of the legal health record. It is not the complete legal health record.[facility]
--- OUTSIDE RECORDS SUMMARY | 2025-03-28 00:37 | XMS_ITS | Encounter Summary ---
Author Organization [facility] Address [address] [facility] [address] [place] [address] Phone Care Team Providers Care Battery Wrecker Operator Name Role Phone Pcp, Not Required Primary Care Provider Darek Monson MD Primary Care Provider Encounter Details Date Type Department Care Team (Late st Contact Info) Description 12/02/2020 Procedure Pass [facility] [address] [place] [address] Social History Tobacco Use Types Packs/Day Years [...] 5:00 PM DYANAT Jackie Mcguire RN * [place] Suicide Severity Rating Scale (Screener/Recent Self-Report) Question [...] on filedocumented in this encounter Care Teams Battery Wrecker Operator Relationship Specialty Start Date End Date Pcp, Not Required [address] [place] [id number] PCP - General 11/14/20 01/19/21 Darek Ronquillo MD [address] [place] [address] [place] [address] PCP - General Internal Medicine 01/20/21 documented as of this encounter Additional Source Comments The information contained in this document represents components of the legal health record. It is not the complete legal health record.[facility]
--- OUTSIDE RECORDS SUMMARY | 2025-03-28 00:37 | XMS_ITS | Encounter Summary ---
Author Organization [facility] Address [address] [facility] [address] [place] [phone] Phone Care Team Providers Care Ancillary Specialist Name Role Phone Pcp, Not Required Primary Care Provider Darek Monson MD Primary Care Provider Encounter Details Date Type Department Care Team (Late st Contact Info) Description 11/14/2020 Procedure Pass [facility] [address] [place] [address] Social History Tobacco Use Types Packs/Day Years [...] on filedocumented in this encounter Care Teams Ancillary Specialist Relationship Specialty Start Date End Date Pcp, Not Required [address] [place] [address] PCP - General 11/14/20 01/19/21 Darek Ronquillo MD [address] [place] [address] Dr RIVAS [place] [id number] PCP - General Internal Medicine 01/20/21 documented as of this encounter Additional Source Comments The information contained in this document represents components of the legal health record. It is not the complete legal health record.[facility]
--- OUTSIDE RECORDS SUMMARY | 2025-03-28 00:37 | XMS_ITS | Encounter Summary ---
Author Organization [facility] Address [address] [place] [address] Phone Care Team Providers Care Pump House Engineer Name Role Phone Darek Ronquillo MD Primary Care Provider Encounter Details Date Type Department Care Team (Late st Contact Info) Description 06/05/2022 Procedure Pass [facility], Ct Scan - [address] [address] Social History Tobacco Use Types Packs/Day Years [...] on filedocumented in this encounter Care Teams Pump House Engineer Relationship Specialty Start Date End Date Darek Ronquillo MD [address] [place] [address] Dr RIVAS [place] [id number] PCP - General Internal Medicine 01/20/21 documented as of this encounter Additional Source Comments The information contained in this document represents components of the legal health record. It is not the complete legal health record.[facility]
--- OUTSIDE RECORDS SUMMARY | 2025-03-28 00:37 | XMS_ITS | Encounter Summary ---
Author Organization [facility] Address [address] [facility] [address] [place] [address] Phone Care Team Providers Care Logistics And Planning Manager Name Role Phone Darek Ronquillo MD Primary Care Provider Reason for Referral * MRI/CAT Scan - Closed Specialty Diagnoses / Procedures Referred By Renetta castelan Referred To Contact Radiology Diagnoses Maxillary sinus cancer Procedures CT Neck CHG CT NECK TISSUE CONTRAST Sharla De La Cruz MD [address] [place] [address], [facility] [address] [place] [address] Phone: tel: fax: [email or web address] Referral ID Status Reason Start Date Expiration Date Visits Re quested Visits Authorized [id number] Closed 06/12/2022 10/28/2022 1 1 * MRI/CAT Scan - Closed Specialty Diagnoses / Procedures Referred By Renetta castelan Referred To Contact Radiology Diagnoses Maxillary sinus cancer Disorientation, unspecified Procedures CT Head CHG CT SCAN HEAD CONTRAST CHG CT SCAN HEAD COMBO Sharla De La Cruz MD [address] [place] [address], [facility] [address] [place] [address] Phone: tel: fax: [email or web address] Referral ID Status Reason Start Date Expiration Date Visits Re quested Visits Authorized [id number] Closed 06/12/2022 10/28/2022 1 1 Encounter Details Date Type Department Care Team (Late st Contact Info) Description 06/05/2022 Transcribe Orders Virtual Department [address] [place] [address] Sharla De La Cruz MD [address] [facility] [place] [address] [email or web address] Maxillary sinus cancer (Primary Dx) Social History [...] right lateral rhinotomy and maxillectomy, with mild pml-cgjk-mosz soft tissue enhancement in the inferior aspect [...] sinonasal squamous cell carcinoma. There is mild qtv-aoug-jyql soft tissue enhancement in the inferior aspect [...] and sinonasal squamous cell carcinoma. There is dunascv-ighq-jktx soft tissue enhancement in the inferior aspect [...] prior right lateral rhinotomy andmaxillectomy, with mild egr-irho-xonf soft tissue enhancement in theinferior aspect of the right maxillary sinus fossa, most likelyrepresenting mucosal thickening. No definite evidence of enhancing mass. Sharla Diaz MD IMG CT HEAD/NECK Final Result documented in this encounter Visit Diagnoses Diagnosis Maxillary sinus cancer- Primary Maxillary sinus cancer documented in this encounter Care Teams Logistics And Planning Manager Relationship Specialty Start Date End Date Darek Ronquillo MD [address] [place] [address] [place] [address] PCP - General Internal Medicine 01/20/21 documented as of this encounter Additional Source Comments The information contained in this document represents components of the legal health record. It is not the complete legal health record.[facility]
--- OUTSIDE RECORDS SUMMARY | 2025-03-28 00:37 | XMS_ITS | Encounter Summary ---
Author Organization [facility] Address [address] [facility] [address] [place] [address] Phone Care Team Providers Care Mover Name Role Phone Unknown, Unknown Primary Care Provider Gurmeet gutierrez Pcp, Not Required Primary Care Provider Darek Monson MD Primary Care Provider Encounter Details Date Type Department Care Team (Late st Contact Info) Description 09/26/2020 Procedure Pass [facility] [address] [place] [address] Social History Tobacco Use Types Packs/Day Years [...] on filedocumented in this encounter Care Teams Mover Relationship Specialty Start Date End Date Unknown, Unknown, MD PCP - General 08/30/20 11/13/20 Pcp, Not Required [address] [place] [address] PCP - General 11/14/20 01/19/21 Darek Ronquillo MD [address] [place] [address] Dr RIVAS David [place] [id number] PCP - General Internal Medicine 01/20/21 documented as of this encounter Additional Source Comments The information contained in this document represents components of the legal health record. It is not the complete legal health record.[facility]
--- OUTSIDE RECORDS SUMMARY | 2025-03-28 00:37 | XMS_ITS | Encounter Summary ---
Author Organization [facility] Address [address] [place] [address] Phone Care Team Providers Care Induction Heating Equipment Setter Name Role Phone Darek Ronquillo MD Primary Care Provider Encounter Details Date Type Department Care Team (Late st Contact Info) Description 06/05/2022 Procedure Pass [facility], Ct Scan - [address] [address] Social History Tobacco Use Types Packs/Day Years [...] on filedocumented in this encounter Care Teams Induction Heating Equipment Setter Relationship Specialty Start Date End Date Darek Ronquillo MD [address] [place] [address] Dr RIVAS WILIAN Hernandez [id number] PCP - General Internal Medicine 01/20/21 documented as of this encounter Additional Source Comments The information contained in this document represents components of the legal health record. It is not the complete legal health record.[facility]
--- OUTSIDE RECORDS SUMMARY | 2025-03-28 00:37 | XMS_ITS | Encounter Summary ---
Author Organization [facility] Address [address] [facility] [address] [place] [address] Phone Care Team Providers Care Boiler Erector Name Role Phone Pcp, Not Required Primary Care Provider Darek Monson MD Primary Care Provider Encounter Details Date Type Department Care Team (Late st Contact Info) Description 12/05/2020 Procedure Pass [facility] [address] [place] [address] Social History Tobacco Use Types Packs/Day Years [...] on filedocumented in this encounter Care Teams Boiler Erector Relationship Specialty Start Date End Date Pcp, Not Required [address] [place] [address] PCP - General 11/14/20 01/19/21 Darek Ronquillo MD [address] [place] [address] Dr IRVAS WILIAN Hernandez [address] PCP - General Internal Medicine 01/20/21 documented as of this encounter Additional Source Comments The information contained in this document represents components of the legal health record. It is not the complete legal health record.[facility]
--- OUTSIDE RECORDS SUMMARY | 2025-03-28 00:37 | XMS_ITS | Encounter Summary ---
Author Organization [facility] Address [address] [place] [address] Phone Care Team Providers Care Tuft Machine Operator Name Role Phone Darek Ronquillo MD Primary Care Provider Encounter Details Date Type Department Care Team (Late st Contact Info) Description 04/05/2021 Procedure Pass [facility] [address] [place] [address] Social History Tobacco Use Types Packs/Day Years [...] on filedocumented in this encounter Care Teams Tuft Machine Operator Relationship Specialty Start Date End Date Darek Ronquillo MD [address] [place] [address] Dr RIVAS WILIAN Hernandez [address] PCP - General Internal Medicine 01/20/21 documented as of this encounter Additional Source Comments The information contained in this document represents components of the legal health record. It is not the complete legal health record.[facility]
--- OUTSIDE RECORDS SUMMARY | 2025-03-28 00:38 | XMS_ITS | Encounter Summary ---
Author Organization [facility] Address [address] [facility] [address] [place] [address] Phone Care Team Providers Care Nurse Clinician Name Role Phone Pcp, Not Required Primary Care Provider Darek Monson MD Primary Care Provider Encounter Details Date Type Department Care Team (Late st Contact Info) Description 01/11/2021 Ancillary Orders [facility],Outside Imaging [address] [place] [address] System, Provider Not In, [facility] [address] [address] Social History Tobacco Use Types Packs/Day Years [...] on filedocumented in this encounter Care Teams Nurse Clinician Relationship Specialty Start Date End Date Pcp, Not Required [address] [place] [address] PCP - General 11/14/20 01/19/21 Darek Ronquillo MD [address] [place] [address] [place] [address] PCP - General Internal Medicine 01/20/21 documented as of this encounter Additional Source Comments The information contained in this document represents components of the legal health record. It is not the complete legal health record.[facility]
--- OUTSIDE RECORDS SUMMARY | 2025-03-28 00:38 | XMS_ITS | Clinical Summary ---
Author Organization [facility] Address [address] [facility] [address] [place] [address] Phone Care Team Providers Care Track Hoe Operator Name Role Phone Darek Ronquillo MD [...] Active vitamins A,C,E-zinc-cata er (PRESERVISION AREDS) [phone] yavl-ke-szwu Cap Take 1 capsule by mouth 2 [...] this topic Medical Devices Implanted Type Area Career Services Officer Device Identifier Shelf Expiration Date Model / Serial / Lot Cannula Lewis Lacr Without Bx 3ea Bx/3ea - [id number] Implanted:Qty: 1 on 12/02/2020 by Chavo Varner MD, FACS at [facility] 05/06/2021 [id number] / / [id number] Procedures Procedure Name Priority Date/Time Associated Diagnosis Comments BASIC METABOLIC PANEL Routine 12/05/2020 5:51 AM EDT from Last 3 Months or Most Recently Relevant to Health Maintenance Results * (ABNORMAL) Basic metabolic panel (12/05/2020 5:51 AM EDT) SODIUM 144 135 - 145 mmol/L [facility] CHLORIDE 107 100 - 108 mmol/L [facility] POTASSIUM 4.3 3.5 - 5.0 mmol/L [facility] CO2 30 23 - 31.9 mmol/L [facility] BUN 24 8 - 25 mg/dL [facility] CREATININE 0.79 0.6 - 1.5 mg/dL [facility] GLUCOSE 159(H) 70 - 110 mg/dL [facility] CALCIUM 8.9 8.5 - 10.5 mg/dL [facility] EGFR 88 >59 mL/min/1. 73m2 [facility] Comment:Estimated glomerular filtration rate calculated using the CKD-EPI equation. ANION GAP 7 3 - 15 mmol/L [facility] Blood 12/05/2020 5:51 AM EDT 12/05/2020 6:15 AM EDT Chavo Varner MD, FACS LAB BLOOD [place] [address], [facility] from Last 3 Months or Most Recently Relevant to Health Maintenance Insurance [employer] H[employer] REPLACEMENT [employer] H[employer] REPLACEMENT [facility] MEDICARE HMO REPLACEMENT [employer]ACEMENT Advance Directives For more information, please contact: [phone] (9AM - 5PM [facility], Saturday-Saturday) Documents on File Type Date Recorded Patient Oracle Sql Developer Expl anation Healthcare Proxy 12/07/2020 12:45 PM * Full Code (Latest Code Status on File) Date Activated Date Inactivated Comments 12/02/2020 4:51 PM Question Answer Comments Code Status Confirmed With: Patient Care Teams Track Hoe Operator Relationship Specialty Start Date End Date Darek Ronquillo MD [address] [place] [address] [place] [address] PCP - General Internal Medicine 01/20/21 Additional Source Comments The information contained in this document represents components of the legal health record. It is not the complete legal health record.[facility]
--- OUTSIDE RECORDS SUMMARY | 2025-03-28 00:38 | XMS_ITS | Clinical Summary ---
Author Organization [facility] [address] [facility] Address [address] [place] [address] Phone Care Team Providers Care Pharmacologist Name Role Phone Darek Ronquillo MD Primary Care Provider [phone] Allergies Active Allergy Reactions Criticality Noted Date [...] Do not crush, chew, or split. Active jb-jny-XJ-vit L-dbueje-cqzbtri (PreserVision AREDS 2 Plus MV) 200 mcg-15 [...] thoracentesis. Alternatively he could follow-up with his credit reporting clerk and see if any adjustments in his medications would simply resolve the problem. He is currently on Bumex. His preference is to follow-up with his credit reporting clerk at [place] and I will make sure to send [...] general and how their size, shape, and meter changes records clerk time affect her level of suspicion for [...] general and how their size, shape, and meter changes records clerk time affect her level of suspicion for [...] follow-up on pleural effusion. Ascending aortic aneurysm ([facility] V24) 06/12/20 Overview (08/10/2024): Last Assessment & [...] will continue to monitor this. Aortic aneurysm ([facility] V24) 12/21/2020 Overview (08/10/2024): Last Assessment & Plan: sinus of Valsalva 4.3 cm, ascending aorta 4.5 cm, transverse aorta at 4.5 cm. Blood pressure is stable. Continue metoprolol. We will continue to monitor yearly. Chronic atrial fibrillation ([facility] V24, [facility] V28) 12/21/2020 Overview (08/10/2024): Last Assessment & Plan: He presents in a rate controlled atrial fibrillation. He will continue metoprolol and diltiazem at current doses. His SKY6ST8-WATy score is elevated at 5(age, CHF, HTN, [...] Continue regimen as above. Peripheral vascular disease ([facility] V24) 2020 Overview (08/10/2024): Last Assessment & [...] PM EDT Office Visit Thoracic Surgery - [address] [place] [address] Mamadou Doss MD Pulmonary nodule (Primary Dx) 02/11/2025 12:55 PM EDT - 02/11/2025 11:59 PM EDT Hospital Encounter [facility] CT Scan [address] [place] [address] Pulmonary nodule; Pleural effusion Discharge [...] History Medical History Date Comments Atrial fibrillation ([facility] V24, [facility] V28) 09/30/2023 DX:Atrial fibrillation ([facility]) Anemia 09/30/2023 DX:Anemia Mixed hyperlipidemia 09/30/2023 DX:Mixed hy perlipidemia Peripheral vascular disease ([facility] V24) 09/30/2023 DX:Peripheral vascular disea se ([facility]) COPD (chronic obstructive pu lmonary disease) ([facility] V24, [facility] V28) 09/30/2023 DX:COPD (chronic o bstructive pulmonary disease) ([facility]) Essential (primary) hypertension 09/30/2023 DX:Essential (primary) hypertension [...] polyps Thoracic aortic aneurysm wit hout rupture ([facility] V24) DX:Thoracic aortic aneurysm without rupture ([facility]) Basal cell carcinoma of skin , unspecified DX:Basal cell carcinoma of s kin, unspecified Vitamin D deficiency DX:Vitamin D deficiency Paroxysmal atrial fibrillati on ([facility] V24, [facility] V28) DX:Paroxysmal atrial fibril lation (HCC) Encounter for screening for malignant neoplasm of rectum DX:Encounter for screening f or malignant neoplasm of rectum Personal history of nicotine dependence DX:Personal history of nicot ine dependence Chronic diastolic (congestiv e) heart failure ([facility] V24, [facility] V28) DX:Chronic diastoli c (congestive) heart failure [...] right effusion smaller since 08/31/24. [place] ([id number]) -------- FINAL REPORT -------- Dictated By: Nova Thomas Dictated Date: 02/15/2025 14:23 ET Assigned Physician: Nova Thomas Reviewed and Electronically Signed By: Nova Thomas Signed Date: 02/15/2025 14:35 ET Workstation ID: [id number] Transcribed By: Self Edit Transcribed Date: 02/15/2025 14:23 ET Narrative 02/15/2025 2:35 PM EDT History: Follow-up pulmonary nodule. Comparison: 08/31/24, 09/05/23 Technique: Helical volumetric imaging of the thorax was performed without IV contrast. DLP: 756.76 mGy/cm PlatedT Iterative reconstruction technique Findings: The right apical [...] was performed withoutIV contrast. DLP: 756.76 mGy/cm Evozpeed VCT Iterative reconstruction technique Findings: The right [...] the right effusionsmaller since 08/31/24. Teleelvia LARSON ([id number]) -------- FINAL REPORT -------- Dictated By: Nova Thomas Dictated Date: 02/15/2025 14:23 ET Assigned Physician: Nova Thomas Reviewed and Electronically Signed By: Nova Thomas Signed Date: 02/15/2025 14:35 ET Workstation ID: [id number] Transcribed By: Self Edit Transcribed Date: 02/15/2025 14:23 ET Kaley LARSON IMG CT PROCEDURES Final Resul t * Annual BMP Blood Test (01/01/2022) Annual BMP Blood Test abstracted Historical Provider HEALTH MAINTENANCE Final Result from Last 3 Months or Most Recently Relevant to Health Maintenance Insurance WILLIAM WILIAN KRUEGER [id number] [employer] PHIL ANDINO [address] [place] [phone] Care Teams Pharmacologist Relationship Specialty Start Date End Date Darek Ronquillo MD [address] [place] [address] Dr Navdeep [place] PCP - General 03/01/08
--- OUTSIDE RECORDS SUMMARY | 2025-03-28 00:38 | XMS_ITS | Patient Health Record ---
Author Organization [facility] Address [address] [place] [address] Care Team Providers Care Job Developer For Deaf Adults Name Role Phone ChristianoGary Primary Care Provider Ariadne Long [phone] Allergies Allergen (clinical drug ingredient) Drug/Non Drug [...] atherosclerosis of arteries of lower limbs (disorder) (90115483818149987 ) Atherosclerosis of artery of both lower extremities (I70.203) Active confirmed Problem Ulcer of left heel (disorder) (97540403486500483 ) Skin ulcer of left heel, limited to breakdown of skin (L97.421) Active confirmed Vital Signs Blood pressure diastolic 60 mm Hg 01/26/2025 Height 5 ft 11 in in 01/26/2025 Blood pressure systolic 120 mm Hg 01/26/2025 Weight 176 lbs 01/26/2025 BMI 24.54 kg/m2 01/26/2025 Encounters Encounter Location Date Provider Diagnosis [address] [address] 04/29/2024 Ariadne Perica Atherosclerosis of artery of both lower extremities I70.[address] [address] 07/21/2024 Ariadne Perica Atherosclerosis of artery of both lower extremities I70.[address] [address] 10/21/2024 Ariadne Perica Atherosclerosis of artery of both lower extremities I70.[address] [place] [address] 01/26/2025 Ariadne Mercedes Atherosclerosis of artery of [...] Provider Name:Ariadnedean ordoñez, 05/04/2025 11:15:00 AM, [address] [place], [address], Insurance Providers Payer Name Payer Address Payer Phone Subscriber Number Group Number Insured Name Patient Relationship to Insured Coverage Start Date Coverage End Date [facility] [address] [place] [address] [phone] [id number] Hector Diaz Self - patient is the [...]
--- OUTSIDE RECORDS SUMMARY | 2025-03-28 00:38 | XMS_ITS | Patient Health Record ---
Author Organization [facility] Address [address] [place] [address] Care Team Providers Care Sheet Rock Hanger Name Role Phone Shima (RETIRED) Darek REHMAN Primary Care Provide r Soren Jacob Jr Unavailable [phone] Allergies No Known Allergies Reason For [...] Problem Status W/U Status Risk Notes Problem [id number] Heme positive stool (R19.5) Active confirmed Problem Gastritis (8441456) Gastritis (K29.70) Active confirmed Problem [id number] Anemia, unspecified type (D64.9) Active confirmed Vital Signs Temperature 97.5 degrees Fahrenheit 08/10/2024 Blood pressure diastolic 00 mm Hg 08/10/2024 Height 5 ft 11 in in 08/10/2024 Blood pressure systolic 000 mm Hg 08/10/2024 Weight 180 lbs 08/10/2024 BMI 25.10 kg/m2 08/10/2024 Procedures Procedure Date Ordered Date Performed Result Body Sit e VIDEO CAPSULE ENDOSCOPY 10/06/2024 N/A Encounters Encounter Location Date Provider Diagnosis [facility] [address] [place] [address] 08/10/2024 Soren Boothe Jr Anemia, unspecified type D64.9 [facility] [address] [place] [address] 08/04/2024 Soren Boothe Jr [facility] [address] [place] [address] 10/06/2024 Soren Boothe Jr Anemia, unspecified type D64.9 and Heme positive stool R19.5 [facility] [address] [place] [address] 11/05/2024 Soren Boothe Jr [facility] [address] [place] [address] 01/18/2025 Soren Boothe Jr Assessments Encounter Date [...] Insured Coverage Start Date Coverage End Date [facility] [address] [place] [phone] [id number] STEFFEN ANTHONY Self - patient is the insured Medical (General) History Medical History History ICD Code Hypotension 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
[2025-03-28 07:00] VITALS: BP 113/56; PULSE 77; RESP 16; TEMP 36.9; O2SAT 95
== END 2025-03-28 04:00 | disposition home or self-care (01) ==
PROVIDERS: Emergency Provider Emergency Medicine; PCP Internal Medicine
DX: S01.01XA Laceration without foreign body of scalp, initial encounter (principal); S50.312A Abrasion of left elbow, initial encounter; R51.9 Headache, unspecified; M54.2 Cervicalgia; W01.10XA Fall on same level from slipping, tripping and stumbling with subsequent striking against unspecified object, initial encounter; Z91.81 History of falling; Y93.9 Activity, unspecified; Y92.9 Unspecified place or not applicable; Y99.8 Other external cause status; Z51.81 Encounter for therapeutic drug level monitoring; Z79.899 Other long term (current) drug therapy
CPT/HCPCS: 12031; 36415; 70450; 72125; 73070; 80053; 81001; 85025; 85610; 99284

== ENCOUNTER → 2025-03-27 23:40 | Outpatient (BNV) | payer MEDICARE, SELFPAY | PROVIDERS: Emergency Provider Emergency Medicine; PCP Internal Medicine; Visit Provider Radiology Neuroradiology | DX: S50.312A Abrasion of left elbow, initial encounter (principal); W19.XXXA Unspecified fall, initial encounter | CPT/HCPCS: 73070 ==

== ENCOUNTER → 2025-03-28 01:47 | Outpatient (BNV) | payer MEDICARE, SELFPAY | PROVIDERS: Emergency Provider Emergency Medicine; PCP Internal Medicine; Visit Provider Radiology Neuroradiology | DX: Z04.3 Encounter for examination and observation following other accident (principal); M79.89 Other specified soft tissue disorders; S00.03XA Contusion of scalp, initial encounter | CPT/HCPCS: 70450; 72125 ==

== ENCOUNTER 2025-03-30 14:44 | Outpatient (AMB) | payer MEDICARE, SELFPAY ==
--- OUTSIDE RECORDS SUMMARY | 2025-01-25 09:35 | XMS_ITS ---
Author Organization [facility] Address [address] [facility] [place] [address] Care Team Providers Care Label Maker Name Role Phone Shima (RETIRED) Darek REHMAN Primary Care Provide r Leigh Boothe Jr, Soren Abraham REASON FOR VISIT Patient presents today for bleeding? Encounters Encounter Location Date Provider Diagnosis [facility] [address] [place], [place] [address] [address] 01/25/2025 Soren Boothe Jr Plan Of Treatment No Information Progress Notes * STEFFEN ANTHONYDOB:1945 ( 80 yo M)Acc No.[id number]:01/25/2025 Progress Notes Patient: STEFFEN KENNEDY Provider: Keira Boothe MD :1945 A ge:79 Y S ex:Male Date:01/25/2025 Address:[address] [place] [address] [id number] Pcp:Darek Ronquillo (RETIRED )MD Subjective: * Chief [...] 01/25/2025 Generated for Printi ng/Faxing/eTransmitting on: 0 03/30/2025 05:53 PM EDT
--- NOTE | 2025-03-30 14:43 | MHC.PC.OV ---
Vital Signs 03/30/25 15:01 Height 5 ft 11 in Weight 151 lb BMI 21.1 BP 124/58 L Blood Pressure Location Rt brachial Position Sitting Respiration 20 Pulse 94 Pulse Source Pulse Oximeter Temp 97.9 F Temp Source Temporal Artery Scan Pulse Oximetry (%) 98 Oxygen Delivery Method Room Air Intake Visit Reasons: ER follow up Sandblast Carver Required: No Accompanied by: Spouse Allergies hydromorphone (From Dilaudid) Adverse Reaction (Verified 03/30/25 14:44) Confusion Medication List - Last Reconciled 03/30/25 by AMRSHA Hair atorvastatin 40 mg PO DAILY@1700 bumetanide 2 mg PO BID@0700,1700 90 days cholecalciferol (vitamin D3) 10 mcg PO DAILY@0700 digoxin 125 mcg PO SUMOTUTHFR dutasteride (Avodart) 0.5 mg PO DAILY@1700 fenofibrate nanocrystallized 145 mg PO DAILY@0700 ferrous sulfate 325 mg PO BID@0700,1700 metolazone 2.5 mg PO MOWEFR PRN metoprolol succinate ER 25 mg PO DAILY@1700 midodrine 2.5 mg PO TID@0700,1200,1700 omeprazole 20 mg PO DAILY@0630 potassium chloride ER 40 mEq (2 x 20 mEq) PO QAM rivaroxaban (Xarelto) 20 mg PO DAILY@1700 vit C,C-Gj-gfelh-lutein-zeaxan 250-90-40-1 mg (PreserVision AREDS-2) 1 tab PO BID@1200,1700 Tobacco use date assessed: 01/18/25 Fall risk assessment: 2 + Falls in past year Last assessed Fall Risk: 03/30/25 Dental Screening Dental Screen Date: 03/30/25 Did you have a dental visit in the last 12 months?: Yes Did you have a dental problem in the last 6 months where you did not have access to dental care?: No Was dental information given to patient?: Patient has dentist HPI HPI Comments History of Present Illness Details 80 year old male with CAD, CHF, AFIBon Xarellto, anemia, HLD and low vitamin D here in urgent visit for ER follow up. Patient tripped over his walker on the way to the bathroom and fell on 03/28. He hit his head and caused a skin tear on his left arm. He was seen in the ER at . He had a CT of head and neck which were essentially normal. He had nirmal placed in his head for laceration. He has a bandage on his left arm. It has not been changed since the ER. He states he does not have a headache or dizziness. He has an appointment for PE on 04/26/25. [facility] Medical History (Updated 03/30/25 @ 15:46 by MARSHA Hair) (HFpEF) heart failure with preserved ejection fraction Acute blood loss anemia Acute congestive heart failure Acute upper gastrointestinal bleeding Afib Anemia CAD (coronary artery disease) Chronic atrial fibrillation COPD (chronic obstructive pulmonary disease) Gastritis Gross hematuria Hyperlipidemia Low blood pressure Metabolic alkalosis Nasal sinus tumor Skin tear of left forearm without complication Surgical History Hx of CABG Family History Mother No problems noted. Father No problems noted. Social History Household Members: Spouse Housing: House Do you presently have visiting nurse or other home services: Yes Alcohol intake: current Alcohol intake frequency: 0-2 drinks per day Alcohol type: beer Comment: Patient reports 3 beers in the afternoon and 1 mixed drink before bed, bon Patient Tobacco Use Status: Former Tobacco user Tobacco use type: Cigar e-Cigarette/Vaping Use: Former Use Advance Directives Date on File: 02/16/22 service: No Current occupational status: retired Cognitive needs: Yes (walker) Hearing needs: No Vision needs: Yes (rx glasses) Questionnaire Thrive Questionnaire Date Thrive assessed: 01/18/25 ASHLEY-7 AMB Questionnaire ASHLEY-7 Date ASHLEY - 7 assessed: 01/18/25 Source: Developed by Drs. Homer Ash, Leela Torre, Kota Ann and colleagues, with an educational annika from [employer]. Review of Systems Const Details: CONSTITUTIONAL No dizziness HEAD/NECK No headache RESPIRATORY Negative CARDIOVASCULAR Negative Skin large tear on left forearm NEUROLOGICAL Negative PSYCHIATRIC Negative Physical exam (Primary Care) Vital Signs: Last Vital Signs Temp 97.9 F 03/30/25 15:01 Pulse 94 03/30/25 15:01 Resp 20 03/30/25 15:01 BP 124/58 L 03/30/25 15:01 Pulse Ox 98 03/30/25 15:01 Oxygen Delivery Method Room Air 03/30/25 15:01 BMI result Body Mass Index 21.1 GENERAL Well developed, Well nourished, in no apparent distress HEENT Head-Normocephalic Eyes- PERRLA, EOMI, Conjuctiva clear, lids WNL Ears- Canals clear, TMs WNL Mouth/Throat-No lesions, no erythema, no exudate Neck- Supple, No lymphadenopathy, thyroid WNL RESPIRATORY Normal I:E, Clear to auscultation CARDIOVASCULAR Regular, rate and rhythm, No murmurs or rubs SKIN large skin tag on left forearm- no signs of infection NEUROLOGICAL Gait slow with walker PSYCHIATRIC Oriented to person, place and time Mood and affect WNL Appearance WNL Speech WNL Thought processes WNL Tobacco/Smoking Status: Tobacco use Status Tobacco use date assessed 01/18/25 03/30/25 14:45 Patient Tobacco Use Status Former Tobacco user 03/30/25 14:45 Tobacco use type Cigar 03/30/25 14:45 e-Cigarette/Vaping Use Former Use 03/30/25 14:45 Thrive Assessment: Date of Thrive Assessment Date Thrive assessed 01/18/25 03/30/25 14:45 Results Reviewed Results Reviewed: CT head without contrast Comparison: None provided Findings: No acute intracranial hemorrhage. 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 No large arterial territorial infarction by CT. Mild-moderate white matter pathology is nonspecific and likely due to combination of the small-vessel ischemic disease and wallerian degeneration. Vascular calcifications noted. No midline shift or hydrocephalus. Mild volume loss is generalized. Soft tissue swelling and scalp hematoma including of the left parietal convexity with scalp nirmal. No underlying acute parietal bone fracture. Right nasal bone deficiency and absent garrison of the right orbit or likely partial procedural with partially imaged right maxillary sinus resection. Fluid and mucosal thickening present in the remaining right maxillary sinus in the bsnvt-yk-gfio. Trace mastoid effusions. IMPRESSION: 1. No acute intracranial abnormality by CT. 2. Soft tissue swelling of the scalp hematoma including of the left parietal convexity. No underlying acute skull fracture. This document has been electronically signed by: Hector Verma MD on 03/28/2025 03:01:02 Ordering Physician: Storm Tomlin MD Date of Service: 03/27/25 Procedure(s): XR elbow LT 2V Accession Number(s): [id number] cc: Storm Tomlin MD; Josette Horne MD~ CT cervical spine without contrast Comparison: None provided Findings: No acute fracture of the cervical spine. Anterior cortex lucency of the of the left 1st rib is favored to be due to vessel channel. Additional left lateral 1st rib deformity appears old/chronic in the iyzqk-bu-frry. Multiple additional vessel channels are noted. Straightening of the cervical lordosis. No significant listhesis. Ligament calcifications, osteophytes, disc osteophyte complexes, and facet arthropathy are multifocal, with mild spinal canal stenosis at C5-C6. Foraminal narrowing is multifocal including moderate to severe at C5-C6 by CT. Gas phenomenon includes right C3-C4 facet. Pleural effusions partially imaged in the qqkjs-pu-rjkr with underlying atelectasis. Emphysematous changes and scarring of the imaged lung apices. Imaged trachea, pharynx, and esophagus are mildly patulous vascular calcifications noted. IMPRESSION: 1. No acute fracture of the cervical spine. 2. Bilateral pleural effusions are partially imaged. Please consider dedicated thoracic imaging such as chest CT, if clinically indicated. 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 No acute displaced fracture. Low bone mineralization suggested. Vascular calcifications are multifocal. IMPRESSION: 1. No acute fracture. 2. 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 Coding Level of Care Code Established Pt Est Pt Level 3 (72805) Patient Type Established Diagnoses Skin tear of left forearm without complication S51.812A History of recent fall Z91.81 Head injury due to trauma S09.90XA Time Spent (min) 25 Comment Time spent on Chart review, H&P, dressing change and orders Assessment & Plan Assessment & Plan (1) Skin tear of left forearm without complication: Code(s): S51.812A - Laceration without foreign body of left forearm, initial encounter Category: Medical Plan: Dressing was changed. Will request VNA to come and do wound care. Patient to follow up in 1 week or sooner if symptoms persist or worsen. (2) History of recent fall: Code(s): Z91.81 - History of falling Plan: Patient tripped over walker. (3) Head injury due to trauma: Code(s): S09.90XA - Unspecified injury of head, initial encounter Plan: Will return in 1 week for removal of nirmal. Orders: Referrals [facility] Referral S51.032A - Laceration without foreign body of left forearm, initial encounter
[2025-03-30 15:01] VITALS: BP 124/58; PULSE 94; RESP 20; TEMP 36.6; O2SAT 98; BMI 21.1
--- OUTSIDE RECORDS SUMMARY | 2025-03-30 17:53 | XMS_ITS | Encounter Summary ---
Author Organization [facility] Address [address] [facility] [address] [place] [address] Phone Care Team Providers Care Supervisor Name Role Phone Pcp, Not Required Primary Care Provider Darek Monson MD Primary Care Provider Encounter Details Date Type Department Care Team (Late st Contact Info) Description 12/02/2020 Procedure Pass [facility] [address] [place] [address] Social History Tobacco Use Types Packs/Day Years [...] 5:00 PM DYANAT Jackie Mcguire RN * [place] Suicide Severity Rating Scale (Screener/Recent Self-Report) Question [...] on filedocumented in this encounter Care Teams Supervisor Relationship Specialty Start Date End Date Pcp, Not Required [address] [place] [address] PCP - General 11/14/20 01/19/21 Darek Ronquillo MD [address] [place] [address] [place] [address] PCP - General Internal Medicine 01/20/21 documented as of this encounter Additional Source Comments The information contained in this document represents components of the legal health record. It is not the complete legal health record.[facility]
--- OUTSIDE RECORDS SUMMARY | 2025-03-30 17:53 | XMS_ITS | Encounter Summary ---
Author Organization [facility] Address [address] [facility] [address] [place] [address] Phone Care Team Providers Care Emergency Department Coordinator Name Role Phone Darek Ronquillo MD Primary Care Provider Reason for Referral * MRI/CAT Scan - Closed Specialty Diagnoses / Procedures Referred By Renetta castelan Referred To Contact Radiology Diagnoses Maxillary sinus cancer Procedures CT Neck CHG CT NECK TISSUE CONTRAST Sharla De La Cruz MD [address] [place] [address], [facility] [address] [place] [address] Phone: tel: fax: mailto: Referral ID Status Reason Start Date Expiration Date Visits Re quested Visits Authorized [id number] Closed 06/12/2022 10/28/2022 1 1 * MRI/CAT Scan - Closed Specialty Diagnoses / Procedures Referred By Renetta castelan Referred To Contact Radiology Diagnoses Maxillary sinus cancer Disorientation, unspecified Procedures CT Head CHG CT SCAN HEAD CONTRAST CHG CT SCAN HEAD COMBO Sharla De La Cruz MD [address] [place] [address], [facility] [address] [place] [address] Phone: tel: fax: [email or web address] Referral ID Status Reason Start Date Expiration Date Visits Re quested Visits Authorized [id number] Closed 06/12/2022 10/28/2022 1 1 Encounter Details Date Type Department Care Team (Late st Contact Info) Description 06/05/2022 Transcribe Orders Virtual Department [address] [place] [address] Sharla De La Cruz MD [address] [facility], [address] [place] [address] Maxillary sinus cancer (Primary Dx) Social History [...] right lateral rhinotomy and maxillectomy, with mild rtc-yaho-onem soft tissue enhancement in the inferior aspect [...] sinonasal squamous cell carcinoma. There is mild whg-afag-spje soft tissue enhancement in the inferior aspect [...] and sinonasal squamous cell carcinoma. There is lcvbzyu-bmbg-qnjr soft tissue enhancement in the inferior aspect [...] prior right lateral rhinotomy andmaxillectomy, with mild ybq-upcq-jfqe soft tissue enhancement in theinferior aspect of the right maxillary sinus fossa, most likelyrepresenting mucosal thickening. No definite evidence of enhancing mass. Sharla Diaz MD IMG CT HEAD/NECK Final Result documented in this encounter Visit Diagnoses Diagnosis Maxillary sinus cancer- Primary Maxillary sinus cancer documented in this encounter Care Teams Emergency Department Coordinator Relationship Specialty Start Date End Date Darek Ronquillo MD [address] [place] [address] [place] [address] PCP - General Internal Medicine 01/20/21 documented as of this encounter Additional Source Comments The information contained in this document represents components of the legal health record. It is not the complete legal health record.[facility]
--- OUTSIDE RECORDS SUMMARY | 2025-03-30 17:53 | XMS_ITS | Encounter Summary ---
Author Organization [facility] Address [address] [place] [address] Phone Care Team Providers Care Gas Engine Repairer Name Role Phone Pcp, Not Required Primary Care Provider Darek Monson MD Primary Care Provider Encounter Details Date Type Department Care Team (Late st Contact Info) Description 11/14/2020 Procedure Pass [facility] DEPT [address] [place] [address] Social History Tobacco Use Types Packs/Day Years [...] on filedocumented in this encounter Care Teams Gas Engine Repairer Relationship Specialty Start Date End Date Pcp, Not Required [address] [place] [address] PCP - General 11/14/20 01/19/21 Darek Ronquillo MD [address] [place] [address] Dr RIVAS [place] [address] PCP - General Internal Medicine 01/20/21 documented as of this encounter Additional Source Comments The information contained in this document represents components of the legal health record. It is not the complete legal health record.[facility]
--- OUTSIDE RECORDS SUMMARY | 2025-03-30 17:53 | XMS_ITS | Clinical Summary ---
Author Organization [facility] Address [address] [facility] [address] [place] [address] Phone Care Team Providers Care Breakdown Mill Operator Name Role Phone Darek Ronquillo MD [...] Active vitamins A,C,E-zinc-cata er (PRESERVISION AREDS) [phone] onjq-qf-zbcl Cap Take 1 capsule by mouth 2 [...] this topic Medical Devices Implanted Type Area Trials Manager Device Identifier Shelf Expiration Date Model / Serial / Lot Cannula Lewis Lacr Without Bx 3ea Bx/3ea - [id number] Implanted:Qty: 1 on 12/02/2020 by Chavo Varner MD, FACS at [facility] [employer] [employer] 05/06/2021 [id number] / / [id number] Procedures Procedure Name Priority Date/Time Associated Diagnosis Comments BASIC METABOLIC PANEL Routine 12/05/2020 5:51 AM EDT from Last 3 Months or Most Recently Relevant to Health Maintenance Results * (ABNORMAL) Basic metabolic panel (12/05/2020 5:51 AM EDT) SODIUM 144 135 - 145 mmol/L [facility] CHLORIDE 107 100 - 108 mmol/L [facility] POTASSIUM 4.3 3.5 - 5.0 mmol/L [facility] CO2 30 23 - 31.9 mmol/L [facility] BUN 24 8 - 25 mg/dL [facility] CREATININE 0.79 0.6 - 1.5 mg/dL [facility] GLUCOSE 159(H) 70 - 110 mg/dL [facility] CALCIUM 8.9 8.5 - 10.5 mg/dL [facility] EGFR 88 >59 mL/min/1. 73m2 [facility] Comment:Estimated glomerular filtration rate calculated using the CKD-EPI equation. ANION GAP 7 3 - 15 mmol/L [facility] Blood 12/05/2020 5:51 AM EDT 12/05/2020 6:15 AM EDT Chavo Varner MD, FACS LAB [place] [address], [facility] from Last 3 Months or Most Recently Relevant to Health Maintenance Insurance [employer] RE[employer] [place] RE[employer] H[employer] REPLACEMENT [employer] H[employer] REPLACEMENT [employer] H[employer] REPLACEMENT [facility] MEDICARE HMO REPLACEMENT [employer] REPLACEMENT Advance Directives For more information, please contact: [phone] (9AM - 5PM [facility], Saturday-Saturday) Documents on File Type Date Recorded Patient Balance Assembler Expl anation Healthcare Proxy 12/07/2020 12:45 PM * Full Code (Latest Code Status on File) Date Activated Date Inactivated Comments 12/02/2020 4:51 PM Question Answer Comments Code Status Confirmed With: Patient Care Teams Breakdown Mill Operator Relationship Specialty Start Date End Date Darek Ronquillo MD [address] [place] [address] [place] [address] PCP - General Internal Medicine 01/20/21 Additional Source Comments The information contained in this document represents components of the legal health record. It is not the complete legal health record.[facility]
--- OUTSIDE RECORDS SUMMARY | 2025-03-30 17:53 | XMS_ITS | Encounter Summary ---
Author Organization [facility] Address [address] [facility] [address] [place] [address] Phone Care Team Providers Care Radio Director Name Role Phone Unknown, Unknown Primary Care Provider Gurmeet gutierrez Pcp, Not Required Primary Care Provider Darek Monson MD Primary Care Provider Encounter Details Date Type Department Care Team (Late st Contact Info) Description 09/26/2020 Procedure Pass [facility] - [facility] [address] [place] [address] Social History Tobacco Use Types Packs/Day Years [...] on filedocumented in this encounter Care Teams Radio Director Relationship Specialty Start Date End Date Unknown, Unknown, MD PCP - General 08/30/20 11/13/20 Pcp, Not Required [address] [place] [address] PCP - General 11/14/20 01/19/21 Darek Ronquillo MD [address] [place] [address] Dr RIVAS [place] [address] PCP - General Internal Medicine 01/20/21 documented as of this encounter Additional Source Comments The information contained in this document represents components of the legal health record. It is not the complete legal health record.[facility]
--- OUTSIDE RECORDS SUMMARY | 2025-03-30 17:53 | XMS_ITS | Patient Health Record ---
Author Organization [facility] Address [address] [facility] [place] [address] Care Team Providers Care Border Measurer Name Role Phone ChristianoGary Primary Care Provider Ariadne Long [phone] Allergies Allergen (clinical drug ingredient) Drug/Non Drug [...] atherosclerosis of arteries of lower limbs (disorder) ([id number] ) Atherosclerosis of artery of both lower extremities (I70.203) Active confirmed Problem Ulcer of left heel (disorder) ([id number] ) Skin ulcer of left heel, limited to breakdown of skin (L97.421) Active confirmed Vital Signs Blood pressure diastolic 60 mm Hg 01/26/2025 Height 5 ft 11 in in 01/26/2025 Blood pressure systolic 120 mm Hg 01/26/2025 Weight 176 lbs 01/26/2025 BMI 24.54 kg/m2 01/26/2025 Encounters Encounter Location Date Provider Diagnosis [address] [address] 04/29/2024 Ariadne Perica Atherosclerosis of artery of both lower extremities I70.[address] [address] 07/21/2024 Ariadne Perica Atherosclerosis of artery of both lower extremities I70.[address] [address] 10/21/2024 Ariadne Perica Atherosclerosis of artery of both lower extremities I70.[address] [place] [address] 01/26/2025 Ariadne Mercedes Atherosclerosis of artery of [...] Provider Name:Ariadnedean ordoñez, 05/04/2025 11:15:00 AM, [address] [place], [address], Insurance Providers Payer Name Payer Address Payer Phone Subscriber Number Group Number Insured Name Patient Relationship to Insured Coverage Start Date Coverage End Date [facility] [address] [place] [id number] Hector Diaz Self - patient is the [...]
--- OUTSIDE RECORDS SUMMARY | 2025-03-30 17:53 | XMS_ITS | Encounter Summary ---
Author Organization [facility] Address [address] [facility] [address] [place] [address] Phone Care Team Providers Care Go Cart Mechanic Name Role Phone Pcp, Not Required Primary Care Provider Darek Monson MD Primary Care Provider Encounter Details Date Type Department Care Team (Late st Contact Info) Description 01/11/2021 Ancillary Orders [facility],Outside Imaging [address] [place] [address] System, Provider Not In, [facility] [address] [address] Social History Tobacco Use Types Packs/Day Years [...] on filedocumented in this encounter Care Teams Go Cart Mechanic Relationship Specialty Start Date End Date Pcp, Not Required [address] [place] [address] PCP - General 11/14/20 01/19/21 Darek Ronquillo MD [address] [place] [address] [place] [address] PCP - General Internal Medicine 01/20/21 documented as of this encounter Additional Source Comments The information contained in this document represents components of the legal health record. It is not the complete legal health record.[facility]
--- OUTSIDE RECORDS SUMMARY | 2025-03-30 17:53 | XMS_ITS | Encounter Summary ---
Author Organization [facility] Address [address] [place] [address] Phone Care Team Providers Care Sales Vice President Name Role Phone Darek Ronquillo MD Primary Care Provider Encounter Details Date Type Department Care Team (Late st Contact Info) Description 04/05/2021 Procedure Pass [facility] - [facility] [place] [address] [place] [address] Social History Tobacco Use Types Packs/Day Years [...] on filedocumented in this encounter Care Teams Sales Vice President Relationship Specialty Start Date End Date Darek Ronquillo MD [address] [place] [address] Dr RIVAS [place] [address] PCP - General Internal Medicine 01/20/21 documented as of this encounter Additional Source Comments The information contained in this document represents components of the legal health record. It is not the complete legal health record.[facility]
--- OUTSIDE RECORDS SUMMARY | 2025-03-30 17:53 | XMS_ITS | Clinical Summary ---
Author Organization [facility] [address] [facility] Address [address] [place] [address] Phone Care Team Providers Care Space Buyer Name Role Phone Darek Ronquillo MD Primary Care Provider [phone] Allergies Active Allergy Reactions Criticality Noted Date [...] Do not crush, chew, or split. Active fl-znc-EY-vit J-fjtcdi-khrrhgw (PreserVision AREDS 2 Plus MV) 200 mcg-15 [...] thoracentesis. Alternatively he could follow-up with his lockstitch topstitcher and see if any adjustments in his medications would simply resolve the problem. He is currently on Bumex. His preference is to follow-up with his lockstitch topstitcher at [place] and I will make sure to send [...] general and how their size, shape, and climate change risk assessor time affect her level of suspicion for [...] general and how their size, shape, and climate change risk assessor time affect her level of suspicion for [...] on pleural effusion. Ascending aortic aneurysm ([facility] V24) 06/12/20 Overview (08/10/2024): Last [...] continue to monitor this. Aortic aneurysm ([facility] V24) 12/21/2020 Overview (08/10/2024): Last Assessment & Plan: sinus of Valsalva 4.3 cm, ascending aorta 4.5 cm, transverse aorta at 4.5 cm. Blood pressure is stable. Continue metoprolol. We will continue to monitor yearly. Chronic atrial fibrillation ([facility] V24, [facility] V28) 12/21/2020 Overview (08/10/2024): Last Assessment & Plan: He presents in a rate controlled atrial fibrillation. He will continue metoprolol and diltiazem at current doses. His [id number] score is elevated at 5(age, CHF, HTN, [...] regimen as above. Peripheral vascular disease ([facility] V24) 2020 Overview (08/10/2024): Last [...] PM EDT Office Visit Thoracic Surgery - [address] [place] [address] Mamadou Doss MD Pulmonary nodule (Primary Dx) 02/11/2025 12:55 PM EDT - 02/11/2025 11:59 PM EDT Hospital Encounter [facility] CT Scan [address] [place] [address] Pulmonary nodule; Pleural effusion Discharge Disposition: Home or Self Care from Last 3 Months Immunizations Name Administration Dates Next Due Pfizer SARS-CoV-2 COVID-19, mRNA, LNP-S, preservative free 09/03/2020,08/13/2020 Surgical History Surgery Date Site/Laterality Comments CORONARY ARTERY BYPASS GRAFT 2002 PROCEDURE: HISTORICAL CABG OTHER SURGICAL HISTORY 11/15/2023 PROCEDURE: NH BRONCHOSCOPY W/CPTR-ASST IMAGE-GUIDED NAVIGATION; COMMENT: Kyle Bronch/EBUS with Biopsies Medical History Medical History Date Comments Atrial fibrillation ([facility] V24, [facility] V28) 09/30/2023 DX:Atrial fibrillation ([facility]) Anemia 09/30/2023 DX:Anemia Mixed hyperlipidemia 09/30/2023 DX:Mixed hy perlipidemia Peripheral vascular disease ([facility] V24) 09/30/2023 DX:Peripheral vascular disea se ([facility]) COPD (chronic obstructive pu lmonary disease) ([facility] V24, [facility] V28) 09/30/2023 DX:COPD (chronic o bstructive pulmonary disease) ([facility]) Essential (primary) hypertension 09/30/2023 DX:Essential [...] polyps Thoracic aortic aneurysm wit hout rupture ([facility] V24) DX:Thoracic aortic aneurysm without rupture ([facility]) Basal cell carcinoma of skin , unspecified DX:Basal cell carcinoma of s kin, unspecified Vitamin D deficiency DX:Vitamin D deficiency Paroxysmal atrial fibrillati on ([facility] V24, [facility] V28) DX:Paroxysmal atrial fibril lation (HCC) Encounter for screening for malignant neoplasm of rectum DX:Encounter for screening f or malignant neoplasm of rectum Personal history of nicotine dependence DX:Personal history of nicot ine dependence Chronic diastolic (congestiv e) heart failure ([facility] V24, [facility] V28) DX:Chronic diastoli c (congestive) [...] right effusion smaller since 08/31/24. [place] ([id number]) -------- FINAL REPORT -------- Dictated By: Nova Thomas Dictated Date: 02/15/2025 14:23 ET Assigned Physician: Nova Thomas Reviewed and Electronically Signed By: Nova Thomas Signed Date: 02/15/2025 14:35 ET Workstation ID: [id number] Transcribed By: Self Edit Transcribed Date: 02/15/2025 14:23 ET Narrative 02/15/2025 2:35 PM EDT History: Follow-up pulmonary nodule. Comparison: 08/31/24, 09/05/23 Technique: Helical volumetric imaging of the thorax was performed without IV contrast. DLP: 756.76 mGy/cm YatownT Iterative reconstruction technique Findings: The right apical [...] was performed withoutIV contrast. DLP: 756.76 mGy/cm Tifen.compeed VCT Iterative reconstruction technique Findings: The right [...] the right effusionsmaller since 08/31/24. Teleelvia LARSON ([id number]) -------- FINAL REPORT -------- Dictated By: Nova Thomas Dictated Date: 02/15/2025 14:23 ET Assigned Physician: Nova Thomas Reviewed and Electronically Signed By: Nova Thomas Signed Date: 02/15/2025 14:35 ET Workstation ID: [id number] Transcribed By: Self Edit Transcribed Date: 02/15/2025 14:23 ET Kaley LARSON IMG CT PROCEDURES Final Resul t * Annual BMP Blood Test (01/01/2022) Annual BMP Blood Test abstracted Historical Provider HEALTH MAINTENANCE Final Result from Last 3 Months or Most Recently Relevant to Health Maintenance Insurance WILLIAM WILIAN KRUEGER [id number] [employer] [place] [address] [place] [phone] Care Teams Space Buyer Relationship Specialty Start Date End Date Darek Ronquillo MD [address] [place] [address] Dr Navdeep [place] PCP - General 03/01/08
--- OUTSIDE RECORDS SUMMARY | 2025-03-30 17:53 | XMS_ITS | Encounter Summary ---
Author Organization [facility] Address [address] [place] [address] Phone Care Team Providers Care Production Line Operator Name Role Phone Darek Ronquillo MD Primary Care Provider Encounter Details Date Type Department Care Team (Late st Contact Info) Description 06/05/2022 Procedure Pass [facility], Ct Scan - [address] [address] Social History Tobacco Use Types Packs/Day Years [...] on filedocumented in this encounter Care Teams Production Line Operator Relationship Specialty Start Date End Date Darek Ronquillo MD [address] [place] [address] Dr RIVAS [place] [id number] PCP - General Internal Medicine 01/20/21 documented as of this encounter Additional Source Comments The information contained in this document represents components of the legal health record. It is not the complete legal health record.[facility]
--- OUTSIDE RECORDS SUMMARY | 2025-03-30 17:53 | XMS_ITS | Encounter Summary ---
Author Organization [facility] Address [address] [place] [address] Phone Care Team Providers Care Guard Driver Name Role Phone Pcp, Not Required Primary Care Provider Darek Monson MD Primary Care Provider Encounter Details Date Type Department Care Team (Late st Contact Info) Description 12/05/2020 Procedure Pass [facility] [address] [place] [address] Social History Tobacco Use Types Packs/Day Years [...] on filedocumented in this encounter Care Teams Guard Driver Relationship Specialty Start Date End Date Pcp, Not Required [address] [place] [id number] PCP - General 11/14/20 01/19/21 Darek Ronquillo MD [address] [place] [address] Dr RIVAS W[place] [id number] PCP - General Internal Medicine 01/20/21 documented as of this encounter Additional Source Comments The information contained in this document represents components of the legal health record. It is not the complete legal health record.[facility]
--- OUTSIDE RECORDS SUMMARY | 2025-03-30 17:53 | XMS_ITS | Encounter Summary ---
Author Organization [facility] Address [address] [place] [address] Phone Care Team Providers Care Funeral Assistant Name Role Phone Darek Ronquillo MD Primary Care Provider Encounter Details Date Type Department Care Team (Late st Contact Info) Description 06/05/2022 Procedure Pass [facility], Ct Scan - [address] [address] Social History Tobacco Use Types Packs/Day Years [...] on filedocumented in this encounter Care Teams Funeral Assistant Relationship Specialty Start Date End Date Darek Ronquillo MD [address] [place] [address] Dr RIVAS W[place] [id number] PCP - General Internal Medicine 01/20/21 documented as of this encounter Additional Source Comments The information contained in this document represents components of the legal health record. It is not the complete legal health record.[facility]
--- OUTSIDE RECORDS SUMMARY | 2025-03-30 17:53 | XMS_ITS | Encounter Summary ---
Author Organization [facility] Address [address] [place] [address] Phone Care Team Providers Care Time Signal Wirer Name Role Phone Darek Ronquillo MD Primary Care Provider Encounter Details Date Type Department Care Team (Late st Contact Info) Description 04/05/2021 Procedure Pass [facility] [place] [address] [place] [address] Social History Tobacco Use Types Packs/Day Years [...] on filedocumented in this encounter Care Teams Time Signal Wirer Relationship Specialty Start Date End Date Darek Ronquillo MD [address] [place] [address] Dr RIVAS WILIAN [place] [id number] PCP - General Internal Medicine 01/20/21 documented as of this encounter Additional Source Comments The information contained in this document represents components of the legal health record. It is not the complete legal health record.[facility]
--- OUTSIDE RECORDS SUMMARY | 2025-03-30 17:53 | XMS_ITS | Patient Health Record ---
Author Organization [facility] Address [address] [place] [address] Care Team Providers Care Vice President Corporate Communications Name Role Phone Shima (RETIRED) Darek REHMAN [...] Problem Status W/U Status Risk Notes Problem [id number] Heme positive stool (R19.5) Active confirmed Problem Gastritis (2488280) Gastritis (K29.70) Active confirmed Problem 322515830 Anemia, unspecified type (D64.9) Active confirmed Vital Signs Temperature 97.5 degrees Fahrenheit 08/10/2024 Blood pressure diastolic 00 mm Hg 08/10/2024 Height 5 ft 11 in in 08/10/2024 Blood pressure systolic 000 mm Hg 08/10/2024 Weight 180 lbs 08/10/2024 BMI 25.10 kg/m2 08/10/2024 Procedures Procedure Date Ordered Date Performed Result Body Sit e VIDEO CAPSULE ENDOSCOPY 10/06/2024 N/A Encounters Encounter Location Date Provider Diagnosis [facility] [address] [place] [phone] 08/10/2024 Soren Boothe Jr Anemia, unspecified type D64.9 [facility] [address] [place] [phone] 08/04/2024 Soren Boothe Jr [facility] [address] [place] [phone] 10/06/2024 Soren Boothe Jr Anemia, unspecified type D64.9 and Heme positive stool R19.5 [facility] [address] [place] [phone] 11/05/2024 Soren Boothe Jr [facility] [address] [place] [phone] 01/18/2025 Soren Boothe Jr Assessments Encounter Date [...] Insured Coverage Start Date Coverage End Date [facility] [address] [place] [address] [phone] [id number] STEFFEN ANTHONY Self - patient is the insured Medical (General) History Medical History History ICD Code Hypotension Coronary artery disease with heart failu re/preserved ejection fraction Atrial fibrillation Anemia Right maxillary sinus tumor, surgery at [facility] General Surgical History Surgery Date(Month/Year) Coronary artery bypass grafting
--- NOTE | 2025-04-01 14:35 | MHC.COMNAV ---
Intake Vital Signs 03/30/25 15:01 Height 5 ft 11 in Weight 151 lb BMI 21.1 BP 124/58 L Blood Pressure Location Rt brachial Position Sitting Respiration 20 Pulse 94 Pulse Source Pulse Oximeter Temp 97.9 F Temp Source Temporal Artery Scan Pulse Oximetry (%) 98 Oxygen Delivery Method Room Air Intake Visit Reasons: ER follow up Allergies hydromorphone (From Dilaudid) Adverse Reaction (Verified 03/30/25 14:44) Confusion Medication List - Last Reconciled 03/30/25 by MARSHA Hair atorvastatin 40 mg PO DAILY@1700 bumetanide 2 mg PO BID@0700,1700 90 days cholecalciferol (vitamin D3) 10 mcg PO DAILY@0700 digoxin 125 mcg PO SUMOTUTHFR dutasteride (Avodart) 0.5 mg PO DAILY@1700 fenofibrate nanocrystallized 145 mg PO DAILY@0700 ferrous sulfate 325 mg PO BID@0700,1700 metolazone 2.5 mg PO MOWEFR PRN metoprolol succinate ER 25 mg PO DAILY@1700 midodrine 2.5 mg PO TID@0700,1200,1700 omeprazole 20 mg PO DAILY@0630 potassium chloride ER 40 mEq (2 x 20 mEq) PO QAM rivaroxaban (Xarelto) 20 mg PO DAILY@1700 vit C,D-Dy-gwgvg-lutein-zeaxan 250-90-40-1 mg (PreserVision AREDS-2) 1 tab PO BID@1200,1700 PFSH Medical History (Updated 03/30/25 @ 15:46 by MARSHA Hair) (HFpEF) heart failure with preserved ejection fraction Acute blood loss anemia Acute congestive heart failure Acute upper gastrointestinal bleeding Afib Anemia CAD (coronary artery disease) Chronic atrial fibrillation COPD (chronic obstructive pulmonary disease) Gastritis Gross hematuria Hyperlipidemia Low blood pressure Metabolic alkalosis Nasal sinus tumor Skin tear of left forearm without complication Surgical History Hx of CABG Family History Mother No problems noted. Father No problems noted. Social History Household Members: Spouse Housing: House Do you presently have visiting nurse or other home services: Yes Alcohol intake: current Alcohol intake frequency: 0-2 drinks per day Alcohol type: beer Comment: Patient reports 3 beers in the afternoon and 1 mixed drink before bed, bon Patient Tobacco Use Status: Former Tobacco user Tobacco use type: Cigar e-Cigarette/Vaping Use: Former Use Advance Directives Date on File: 02/16/22 service: No Current occupational status: retired Cognitive needs: Yes (walker) Hearing needs: No Vision needs: Yes (rx glasses) Questionnaires Thrive Questionnaire Date Thrive assessed: 01/18/25 Coding Diagnoses Skin tear of left forearm without complication S51.812A Assessment & Plan Assessment & Plan (1) Skin tear of left forearm without complication: Code(s): S51.812A - Laceration without foreign body of left forearm, initial encounter Category: Medical Orders: Referrals [facility]osp[facility] Referral S51.812A - Laceration without foreign body of left forearm, initial encounter
== END 2025-03-30 15:44 | disposition home or self-care (01) ==
PROVIDERS: PCP Physician Assistant Medical; Visit Provider Physician Assistant Medical
DX: S51.812A Laceration without foreign body of left forearm, initial encounter (principal); Z91.81 History of falling; S09.90XA Unspecified injury of head, initial encounter

== ENCOUNTER → 2025-03-30 14:44 | Outpatient (BNVA) | payer MEDICARE, SELFPAY | PROVIDERS: PCP Internal Medicine; Visit Provider Physician Assistant Medical | DX: S01.91XA Laceration without foreign body of unspecified part of head, initial encounter (principal); S51.812A Laceration without foreign body of left forearm, initial encounter; W19.XXXA Unspecified fall, initial encounter; Y93.9 Activity, unspecified; Y92.9 Unspecified place or not applicable; Y99.9 Unspecified external cause status; Z91.81 History of falling | CPT/HCPCS: 99212 ==

== ENCOUNTER 2025-04-07 10:04 | Outpatient (AMB) | payer MEDICARE, SELFPAY ==
--- OUTSIDE RECORDS SUMMARY | 2025-01-25 09:35 | XMS_ITS ---
Author Organization [facility] Address [address] [facility] [place] [address] Care Team Providers Care Assembly Leader Name Role Phone Shmia (RETIRED) Darek REHMAN Primary Care Provide r Leigh Boothe Jr, Soren Abraham REASON FOR VISIT Patient presents today for bleeding? Encounters Encounter Location Date Provider Diagnosis [facility] [address] [place], [place] [address] [address] 01/25/2025 Soren Boothe Jr Plan Of Treatment No Information Progress Notes * STEFFEN ANTHONYDOB:1945 ( 80 yo M)Acc No.[id number]:01/25/2025 Progress Notes Patient: STEFFEN KENNEDY Provider: Keira Boothe MD :1945 A ge:79 Y S ex:Male Date:01/25/2025 Address:[address] [place] [address] [id number] Pcp:Darek Ronquillo (RETIRED )MD Subjective: * Chief [...] 0 01/25/2025 Generated for Printi ng/Faxing/eTransmitting on: 1 11:18 AM EDT
[2025-04-07 08:26] VITALS: BP 122/68; PULSE 92; TEMP 36.2; O2SAT 99; BMI 21.9
--- NOTE | 2025-04-07 08:26 | MHC.PC.OV ---
Vital Signs 04/07/25 08:26 Height 5 ft 11 in Weight 157 lb BMI 21.9 BP 122/68 Blood Pressure Location Rt brachial Position Sitting Pulse 92 Pulse Source Pulse Oximeter Temp 97.1 F Temp Source Temporal Artery Scan Pulse Oximetry (%) 99 Oxygen Delivery Method Room Air Intake Visit Reasons: 1 week f/u, to remove nirmal Roof Truss Detailer Required: No Accompanied by: Self / Same As Patient Allergies hydromorphone (From Dilaudid) Adverse Reaction (Verified 04/07/25 08:26) Confusion Medication List - Last Reconciled 04/07/25 by MARSHA Hair atorvastatin 40 mg PO DAILY@1700 bumetanide 2 mg PO BID@0700,1700 90 days cholecalciferol (vitamin D3) 10 mcg PO DAILY@0700 digoxin 125 mcg PO SUMOTUTHFR dutasteride (Avodart) 0.5 mg PO DAILY@1700 fenofibrate nanocrystallized 145 mg PO DAILY@0700 ferrous sulfate 325 mg PO BID@0700,1700 metolazone 2.5 mg PO MOWEFR PRN metoprolol succinate ER 25 mg PO DAILY@1700 midodrine 2.5 mg PO TID@0700,1200,1700 omeprazole 20 mg PO DAILY@0630 potassium chloride ER 40 mEq (2 x 20 mEq) PO QAM rivaroxaban (Xarelto) 20 mg PO DAILY@1700 vit C,P-Qm-hsjnu-lutein-zeaxan 250-90-40-1 mg (PreserVision AREDS-2) 1 tab PO BID@1200,1700 Tobacco use date assessed: 04/07/25 Fall risk assessment: No Falls in past year Last assessed Fall Risk: 04/07/25 Dental Screening Dental Screen Date: 04/07/25 Did you have a dental visit in the last 12 months?: Yes Did you have a dental problem in the last 6 months where you did not have access to dental care?: No HPI HPI Comments History of Present Illness Details 80 year old male with CAD, CHF, AFIBon Xarellto, anemia, HLD and low vitamin D here in urgent visit for removal of nirmal from head. The wound care nurse initially scheduled to visit on Saturday was delayed due to another appointment, but eventually came on Saturday to set up the necessary wound care supplies for skin tear on left arm. The nurse advised changing the dressing every other day, and the wound is reportedly healing well with minimal bleeding noted previously. Staple removal from the scalp was performed, with no active bleeding observed during the procedure. Patient has an appointment on 04/26 for PE. Patient was informed and verbally consented to the use of an ambient scribe for clinic note documentation during this visit. FORMERLY [facility], [facility] Medical History Skin tear of left forearm without complication Metabolic alkalosis Gastritis Gross hematuria Chronic atrial fibrillation (HFpEF) heart failure with preserved ejection fraction Low blood pressure Anemia Acute congestive heart failure Acute upper gastrointestinal bleeding Acute blood loss anemia COPD (chronic obstructive pulmonary disease) Hyperlipidemia Afib Nasal sinus tumor CAD (coronary artery disease) Surgical History Hx of CABG Family History (Updated 04/07/25 @ 10:28 by Mckayla Giraldo MA) Mother No problems noted. Father No problems noted. Social History Household Members: Spouse Housing: House Do you presently have visiting nurse or other home services: Yes Alcohol intake: current Alcohol intake frequency: 0-2 drinks per day Alcohol type: beer Comment: Patient reports 3 beers in the afternoon and 1 mixed drink before bed, bon Patient Tobacco Use Status: Former Tobacco user Tobacco use type: Cigar e-Cigarette/Vaping Use: Former Use Advance Directives Date on File: 02/16/22 service: No Current occupational status: retired Cognitive needs: Yes (walker) Hearing needs: No Vision needs: Yes (rx glasses) Questionnaire PHQ-9 Over the last 2 weeks, how often have you been bothered by any of the following problems? 1. Little interest or pleasure in doing things: not at all 2. Feeling down, depressed, or hopeless: several days (little anxiety) 3. Trouble falling or staying asleep, or sleeping too much: several days (trouble falling asleep ) 4. Feeling tired or having little energy: not at all 5. Poor appetite or overeating: several days 6. Feeling bad about yourself - or that you are a failure or have let yourself or your family down: not at all 7. Trouble concentrating on things, such as reading the newspaper or watching television: not at all 8. Moving or speaking so slowly that other people could have noticed. Or the opposite - being so fidgety or restless that you have been moving around a lot more than usual: not at all 9. Thoughts that you would be better off or of hurting yourself in some way: not at all Total score: 3 Source: Developed by Drs. Homer Ash, Leela Torre, Kota Ann and colleagues, with an educational annika from [employer]. Thrive Questionnaire Date Thrive assessed: 04/07/25 I am a: Patient Within the past 12 months, did the food you bought not last and you didn't have the money to get more?: Never true Within the past 12 months, did you worry whether your food would run out before you got money to buy more?: Never true Do you have trouble paying for medicines?: No Do you have trouble getting transportation to medical appointments?: No Do you have trouble paying your heating and electricity bill?: No Do you have trouble taking care of your child, family member or friend?: No Do you have trouble with day-to-day activities such as bathing, preparing meals, shopping, managing finances, etc.?: No Are you currently unemployed and looking for a job?: No Are you interested in more education?: No THRIVE Score: 0 AUDIT C Alcohol Use Questionnaire (AUDIT-C) 1. How often do you have a drink containing alcohol?: Monthly or less 2. How many drinks containing alcohol do you have on a typical day when you are drinking?: 1 or 2 3. How often do you have six or more drinks on one occasion?: Less than monthly Total Score: 2 ASHLEY-7 AMB Questionnaire ASHLEY-7 Date ASHLEY - 7 assessed: 04/07/25 Feeling nervous, anxious, or on edge: 0 = Not at all Not being able to stop or control worryin = Not at all Worrying too much about different things: 0 = Not at all Trouble relaxin = Not at all Being so restless that it is hard to sit still: 0 = Not at all Becoming easily annoyed or irritable: 0 = Not at all Feeling afraid as if something awful might happen: 0 = Not at all Total ASHLEY-7 score (0-4 normal; 5-9 mild; 10-14 moderate; 15-21 severe): 0 Source: Developed by Drs. Homer Ash, Leela Torre, Kota Ann and colleagues, with an educational annika from [employer]. Review of Systems Const Details: CONSTITUTIONAL No fever, no weight loss HEAD/NECK 5 nirmal on left parietal area of scalp RESPIRATORY Negative CARDIOVASCULAR Negative NEUROLOGICAL Negative PSYCHIATRIC Negative Physical exam (Primary Care) Vital Signs: Last Vital Signs Temp 97.1 F 04/07/25 08:26 Pulse 92 04/07/25 08:26 BP 122/68 04/07/25 08:26 Pulse Ox 99 04/07/25 08:26 Oxygen Delivery Method Room Air 04/07/25 08:26 BMI result Body Mass Index 21.9 GENERAL Well developed, Well nourished, in no apparent distress HEENT Head-Normocephalic, nirmal on left scalp Neck- Supple, No lymphadenopathy, thyroid WNL RESPIRATORY Normal I:E, Clear to auscultation CARDIOVASCULAR Regular, rate and rhythm, No murmurs or rubs NEUROLOGICAL Gait slow with walker PSYCHIATRIC Oriented to person, place and time Mood and affect WNL Appearance WNL Speech WNL Thought processes WNL Tobacco/Smoking Status: Tobacco use Status Tobacco use date assessed 04/07/25 04/07/25 08:30 Patient Tobacco Use Status Former Tobacco user 04/07/25 08:30 Tobacco use type Cigar 04/07/25 08:30 e-Cigarette/Vaping Use Former Use 04/07/25 08:30 PHQ-9: PHQ-9 Score PHQ-9: Total score 3 04/07/25 10:29 Thrive Assessment: Date of Thrive Assessment Date Thrive assessed 04/07/25 04/07/25 08:30 Coding Level of Care Code Established Pt Est Pt Level 3 (10989) Patient Type Established Diagnoses Skin tear of left forearm without complication S51.812A Laceration of skin of scalp S01.01XA Time Spent (min) 20 Comment Time spent on chart review, H&P, patient education and staple removal Assessment & Plan Assessment & Plan (1) Skin tear of left forearm without complication: Code(s): S51.812A - Laceration without foreign body of left forearm, initial encounter Category: Medical Plan: The wound care nurse provided necessary supplies and instructions for dressing changes every other day. The wound is healing well, and follow-up visits are scheduled to monitor progress. (2) Laceration of skin of scalp: Code(s): S01.01XA - Laceration without foreign body of scalp, initial encounter Plan: [place] were successfully removed from the scalp with no active bleeding observed. The patient is advised to monitor the area for any signs of infection or complications. Plan During the visit, we discussed the importance of adhering to the wound care regimen and monitoring for any signs of infection. The patient was informed about the follow-up schedule and the need to contact the clinic if any complications arise. Patient Instructions: - Follow the wound care nurse's instructions for dressing changes every other day. - Monitor the scalp for any signs of infection or complications. - Contact the clinic if any issues arise or if there are concerns about the wound or scalp.
--- OUTSIDE RECORDS SUMMARY | 2025-04-07 11:18 | XMS_ITS | Encounter Summary ---
Author Organization [facility] Address [address] [place] [address] Phone Care Team Providers Care Medical Assistant Float Name Role Phone Pcp, Not Required Primary Care Provider Darek Monson MD Primary Care Provider Encounter Details Date Type Department Care Team (Late st Contact Info) Description 11/14/2020 Procedure Pass [facility] [address] [place] [address] Social History Tobacco Use Types Packs/Day Years [...] on filedocumented in this encounter Care Teams Medical Assistant Float Relationship Specialty Start Date End Date Pcp, Not Required [address] [place] [address] PCP - General 11/14/20 01/19/21 Darek Ronquillo MD [address] [place] [address] Dr RIVAS WILIAN Hernandez [id number] PCP - General Internal Medicine 01/20/21 documented as of this encounter Additional Source Comments The information contained in this document represents components of the legal health record. It is not the complete legal health record.[facility]
--- OUTSIDE RECORDS SUMMARY | 2025-04-07 11:18 | XMS_ITS | Encounter Summary ---
Author Organization [facility] Address [address] [place] [address] Phone Care Team Providers Care Provider Relations Representative Name Role Phone Darek Ronquillo MD Primary Care Provider Encounter Details Date Type Department Care Team (Late st Contact Info) Description 06/05/2022 Procedure Pass [facility], Ct Scan - [address] [address] Social History Tobacco Use Types Packs/Day Years [...] on filedocumented in this encounter Care Teams Provider Relations Representative Relationship Specialty Start Date End Date Darek Ronquillo MD [address] [place] [address] Dr RIVAS WILIAN Hernandez [id number] PCP - General Internal Medicine 01/20/21 documented as of this encounter Additional Source Comments The information contained in this document represents components of the legal health record. It is not the complete legal health record.[facility]
--- OUTSIDE RECORDS SUMMARY | 2025-04-07 11:18 | XMS_ITS | Encounter Summary ---
Author Organization [facility] Address [address] [place] [address] Phone Care Team Providers Care Maid Supervisor Name Role Phone Darek Ronquillo MD Primary Care Provider Reason for Referral * MRI/CAT Scan - Closed Specialty Diagnoses / Procedures Referred By Renetta castelan Referred To Contact Radiology Diagnoses Maxillary sinus cancer Procedures CT Neck CHG CT NECK TISSUE CONTRAST Sharla De La Cruz MD [address] [place] [address], [address] [place] [address] Phone: tel: fax: mailto: Referral ID Status Reason Start Date Expiration Date Visits Re quested Visits Authorized [id number] Closed 06/12/2022 10/28/2022 1 1 * MRI/CAT Scan - Closed Specialty Diagnoses / Procedures Referred By Renetta castelan Referred To Contact Radiology Diagnoses Maxillary sinus cancer Disorientation, unspecified Procedures CT Head CHG CT SCAN HEAD CONTRAST CHG CT SCAN HEAD COMBO Sharla De La Cruz MD [address] [place] [address], [address] [place] [address] Phone: tel: fax: [email or web address]:[email or web address] Referral ID Status Reason Start Date Expiration Date Visits Re quested Visits Authorized [id number] Closed 06/12/2022 10/28/2022 1 1 Encounter Details Date Type Department Care Team (Late st Contact Info) Description 06/05/2022 Transcribe Orders Virtual Department [address] [place] [address] Sharla De La Cruz MD [address] [place] [address] Maxillary sinus cancer (Primary Dx) Social History [...] right lateral rhinotomy and maxillectomy, with mild czq-hfrc-auwd soft tissue enhancement in the inferior aspect [...] sinonasal squamous cell carcinoma. There is mild aet-hqiq-ruzo soft tissue enhancement in the inferior aspect [...] and sinonasal squamous cell carcinoma. There is mnticsq-sdwf-zzgs soft tissue enhancement in the inferior aspect [...] prior right lateral rhinotomy andmaxillectomy, with mild kgf-abue-cqjy soft tissue enhancement in theinferior aspect of the right maxillary sinus fossa, most likelyrepresenting mucosal thickening. No definite evidence of enhancing mass. Sharla Diaz MD IMG CT HEAD/NECK Final Result documented in this encounter Visit Diagnoses Diagnosis Maxillary sinus cancer- Primary Maxillary sinus cancer documented in this encounter Care Teams Maid Supervisor Relationship Specialty Start Date End Date Darek Ronquillo MD [address] [place] [address] [place] [address] PCP - General Internal Medicine 01/20/21 documented as of this encounter Additional Source Comments The information contained in this document represents components of the legal health record. It is not the complete legal health record.[facility]
--- OUTSIDE RECORDS SUMMARY | 2025-04-07 11:18 | XMS_ITS | Encounter Summary ---
Author Organization [facility] Address [address] [place] [address] Phone Care Team Providers Care Engineering Inspector Name Role Phone Darek Ronquillo MD Primary Care Provider Encounter Details Date Type Department Care Team (Late st Contact Info) Description 04/05/2021 Procedure Pass [facility] - [facility] Main [place] [address] [place] [address] Social History Tobacco Use Types Packs/Day Years [...] on filedocumented in this encounter Care Teams Engineering Inspector Relationship Specialty Start Date End Date Darek Ronquillo MD [address] [place] [address] Dr RIVAS WILIAN [place] [id number] PCP - General Internal Medicine 01/20/21 documented as of this encounter Additional Source Comments The information contained in this document represents components of the legal health record. It is not the complete legal health record.[facility]
--- OUTSIDE RECORDS SUMMARY | 2025-04-07 11:18 | XMS_ITS | Encounter Summary ---
Author Organization [facility] Address [address] [place] [address] Phone Care Team Providers Care Systems Project Manager Name Role Phone Pcp, Not Required Primary Care Provider Darek Monson MD Primary Care Provider Encounter Details Date Type Department Care Team (Late st Contact Info) Description 12/05/2020 Procedure Pass [facility] [address] [place] [address] Social History Tobacco Use Types Packs/Day Years [...] on filedocumented in this encounter Care Teams Systems Project Manager Relationship Specialty Start Date End Date Pcp, Not Required [address] [place] [address] PCP - General 11/14/20 01/19/21 Darek Ronquillo MD [address] [place] [address] Dr RIVAS WILIAN Hernandez [phone] PCP - General Internal Medicine 01/20/21 documented as of this encounter Additional Source Comments The information contained in this document represents components of the legal health record. It is not the complete legal health record.[facility]
--- OUTSIDE RECORDS SUMMARY | 2025-04-07 11:18 | XMS_ITS | Encounter Summary ---
Author Organization [facility] Address [address] [place] [address] Phone Care Team Providers Care Turpentine Farmer Name Role Phone Darek Ronquillo MD Primary Care Provider Encounter Details Date Type Department Care Team (Late st Contact Info) Description 04/05/2021 Procedure Pass [facility] - [facility] Main [place] [address] [place] [address] Social History Tobacco Use Types Packs/Day Years [...] on filedocumented in this encounter Care Teams Turpentine Farmer Relationship Specialty Start Date End Date Darek Ronquillo MD [address] [place] [address] Dr RIVAS WILIAN Hernandez [id number] PCP - General Internal Medicine 01/20/21 documented as of this encounter Additional Source Comments The information contained in this document represents components of the legal health record. It is not the complete legal health record.[facility]
--- OUTSIDE RECORDS SUMMARY | 2025-04-07 11:18 | XMS_ITS | Encounter Summary ---
Author Organization [facility] Address [address] [place] [address] Phone Care Team Providers Care Railroad Crossing Protection Maintainer Name Role Phone Darek Ronquillo MD Primary Care Provider Encounter Details Date Type Department Care Team (Late st Contact Info) Description 06/05/2022 Procedure Pass [facility], Ct Scan - [address] [address] Social History Tobacco Use Types Packs/Day Years [...] on filedocumented in this encounter Care Teams Railroad Crossing Protection Maintainer Relationship Specialty Start Date End Date Darek Ronquillo MD [address] [place] [address] Dr RIVAS WILIAN Hernandez [id number] PCP - General Internal Medicine 01/20/21 documented as of this encounter Additional Source Comments The information contained in this document represents components of the legal health record. It is not the complete legal health record.[facility]
--- OUTSIDE RECORDS SUMMARY | 2025-04-07 11:18 | XMS_ITS | Encounter Summary ---
Author Organization [facility] Address [address] [place] [address] Phone Care Team Providers Care Wood Model Maker Name Role Phone Unknown, Unknown Primary Care Provider Gurmeet gutierrez Pcp, Not Required Primary Care Provider Darek Monson MD Primary Care Provider Encounter Details Date Type Department Care Team (Late st Contact Info) Description 09/26/2020 Procedure Pass [facility] - [facility] [place] [facility] [address] [place] [address] Social History Tobacco Use Types Packs/Day Years [...] on filedocumented in this encounter Care Teams Wood Model Maker Relationship Specialty Start Date End Date Unknown, Unknown, MD PCP - General 08/30/20 11/13/20 Pcp, Not Required [address] [place] [address] PCP - General 11/14/20 01/19/21 Darek Ronquillo MD [address] [place] [address] Dr RIVAS David WILIAN [id number] PCP - General Internal Medicine 01/20/21 documented as of this encounter Additional Source Comments The information contained in this document represents components of the legal health record. It is not the complete legal health record.[facility]
--- OUTSIDE RECORDS SUMMARY | 2025-04-07 11:18 | XMS_ITS | Encounter Summary ---
Author Organization [facility] Address [address] [facility] [address] [place] [address] Phone Care Team Providers Care Atg Architect Name Role Phone Pcp, Not Required Primary Care Provider Darek Monson MD Primary Care Provider Encounter Details Date Type Department Care Team (Late st Contact Info) Description 12/02/2020 Procedure Pass [facility] [address] [place] [address] Social History Tobacco Use Types Packs/Day Years [...] 5:00 PM DYANAT Jackie Mcguire RN * [place] Suicide Severity Rating Scale (Screener/Recent Self-Report) Question [...] on filedocumented in this encounter Care Teams Atg Architect Relationship Specialty Start Date End Date Pcp, Not Required [address] [place] [address] PCP - General 11/14/20 01/19/21 Darek Ronquillo MD [address] [place] [address] [place] [address] PCP - General Internal Medicine 01/20/21 documented as of this encounter Additional Source Comments The information contained in this document represents components of the legal health record. It is not the complete legal health record.[facility]
--- OUTSIDE RECORDS SUMMARY | 2025-04-07 11:18 | XMS_ITS | Clinical Summary ---
Author Organization [facility] Address [address] [place] [address] Phone Care Team Providers Care Release And Technical Records Clerk Name Role Phone Darek Ronquillo MD [...] Active vitamins A,C,E-zinc-cata er (PRESERVISION AREDS) [id number] flqm-wo-urrz Cap Take 1 capsule by mouth 2 [...] this topic Medical Devices Implanted Type Area Medical Laboratory Scientist Device Identifier Shelf Expiration Date Model / Serial / Lot Cannula Lewis Lacr Without Bx 3ea Bx/3ea - [id number] Implanted:Qty: 1 on 12/02/2020 by Chavo Varner MD, FACS at [facility] 05/06/2021 [id number] / / [id number] Procedures Procedure Name Priority Date/Time Associated Diagnosis Comments BASIC METABOLIC PANEL Routine 12/05/2020 5:51 AM EDT from Last 3 Months or Most Recently Relevant to Health Maintenance Results * (ABNORMAL) Basic metabolic panel (12/05/2020 5:51 AM EDT) SODIUM 144 135 - 145 mmol/L [facility] CHLORIDE 107 100 - 108 mmol/L [facility] POTASSIUM 4.3 3.5 - 5.0 mmol/L [facility] CO2 30 23 - 31.9 mmol/L [facility] BUN 24 8 - 25 mg/dL [facility] CREATININE 0.79 0.6 - 1.5 mg/dL [facility] GLUCOSE 159(H) 70 - 110 mg/dL [facility] CALCIUM 8.9 8.5 - 10.5 mg/dL [facility] EGFR 88 >59 mL/min/1. 73m2 [facility] Comment:Estimated glomerular filtration rate calculated using the CKD-EPI equation. ANION GAP 7 3 - 15 mmol/L [facility] Blood 12/05/2020 5:51 AM EDT 12/05/2020 6:15 AM EDT Chavo Varner MD, FACS [place] [address], [facility] from Last 3 Months or Most Recently Relevant to Health Maintenance Insurance [employer] RE[employer] RE[employer] REPLAC[employer] H[employer] REPLACEMENT [facility] MEDICARE HMO REPLACEMENT [employer]AC[employer] Advance Directives For more information, please contact: [phone] (9AM - 5PM [facility], Saturday-Saturday) Documents on File Type Date Recorded Patient Clinical Training Coordinator Expl anation Healthcare Proxy 12/07/2020 12:45 PM * Full Code (Latest Code Status on File) Date Activated Date Inactivated Comments 12/02/2020 4:51 PM Question Answer Comments Code Status Confirmed With: Patient Care Teams Release And Technical Records Clerk Relationship Specialty Start Date End Date Darek Ronquillo MD [address] [place] [address] [place] [address] PCP - General Internal Medicine 01/20/21 Additional Source Comments The information contained in this document represents components of the legal health record. It is not the complete legal health record.[facility]
--- OUTSIDE RECORDS SUMMARY | 2025-04-07 11:18 | XMS_ITS | Patient Health Record ---
Author Organization [facility] Address [address] [facility] [place] [address] Care Team Providers Care Carpet Finishing Supervisor Name Role Phone ChristianoGary Primary Care Provider [phone] Ariadne Long [phone] Allergies Allergen (clinical drug ingredient) Drug/Non Drug [...] atherosclerosis of arteries of lower limbs (disorder) (19863168150861797 ) Atherosclerosis of artery of both lower extremities (I70.203) Active confirmed Problem Ulcer of left heel (disorder) (15374606576117895 ) Skin ulcer of left heel, limited to breakdown of skin (L97.421) Active confirmed Vital Signs Blood pressure diastolic 60 mm Hg 01/26/2025 Height 5 ft 11 in in 01/26/2025 Blood pressure systolic 120 mm Hg 01/26/2025 Weight 176 lbs 01/26/2025 BMI 24.54 kg/m2 01/26/2025 Encounters Encounter Location Date Provider Diagnosis [address] [address] 04/29/2024 Ariadne Perica Atherosclerosis of artery of both lower extremities I70.[address] [address] 07/21/2024 Ariadne Perica Atherosclerosis of artery of both lower extremities I70.[address] [address] 10/21/2024 Ariadne Perica Atherosclerosis of artery of both lower extremities I70.[address] [place] [address] 01/26/2025 Ariadne Mercedes Atherosclerosis of artery of [...] Provider Name:Ariadnedean ordoñez, 05/04/2025 11:15:00 AM, [address] [place], [address], Insurance Providers Payer Name Payer Address Payer Phone Subscriber Number Group Number Insured Name Patient Relationship to Insured Coverage Start Date Coverage End Date [facility] [address] [place] [address] [id number] Hectro Diaz Self - patient is the insured [...]
--- OUTSIDE RECORDS SUMMARY | 2025-04-07 11:19 | XMS_ITS | Encounter Summary ---
Author Organization [facility] Address [address] [place] [address] Care Team Providers Care Presser And Shaper Knitted Goods Name Role Phone Darek Ronquillo MD Primary Care Provider [phone] Encounter Details Date Type Department Care Team (Late st Contact Info) Description 04/05/2025 Lab Requisition [facility] - Main Lab [address] [facility] [place] [address] Van Harris PA [address] [facility] [address] [place] [phone] Benign essential microscopic hematuria Social History Tobacco Use Types Packs/Day Years [...] as of this encounter Plan of Treatment Pending Results Name Type Priority Associated Diagnoses Date /Time Non-gynecologic cytology Pathology and Cytology Benign essential microscopic hematuria 03/31/2025 12:00 AM EDT documented as of this encounter Visit Diagnoses Diagnosis Benign essential microscopic hematuria documented in this encounter Care Teams Presser And Shaper Knitted Goods Relationship Specialty Start Date End Date Darek Ronquillo MD [address] [place] [address] Dr [address] [place], [place] PCP - General 03/01/08 documented as of this encounter
--- OUTSIDE RECORDS SUMMARY | 2025-04-07 11:19 | XMS_ITS | Clinical Summary ---
Author Organization [facility] [address] [facility] Address [address] [place] [address] Phone Care Team Providers Care Pocket Assembler Name Role Phone Darek Ronquillo MD Primary Care Provider [phone] Allergies Active Allergy Reactions Criticality Noted Date [...] Do not crush, chew, or split. Active xc-lvl-YP-vit O-qrsupf-bcpdvdu (PreserVision AREDS 2 Plus MV) 200 mcg-15 [...] thoracentesis. Alternatively he could follow-up with his manufacturing chief engineer and see if any adjustments in his medications would simply resolve the problem. He is currently on Bumex. His preference is to follow-up with his manufacturing chief engineer at [facility] and I will make sure to send [...] general and how their size, shape, and foreign exchange position clerk time affect her level of suspicion [...] general and how their size, shape, and foreign exchange position clerk time affect her level of suspicion [...] follow-up on pleural effusion. Ascending aortic aneurysm ([facility] V24) 06/12/20 Overview (08/10/2024): Last Assessment [...] will continue to monitor this. Aortic aneurysm ([facility] V24) 12/21/2020 Overview (08/10/2024): Last Assessment & Plan: sinus of Valsalva 4.3 cm, ascending aorta 4.5 cm, transverse aorta at 4.5 cm. Blood pressure is stable. Continue metoprolol. We will continue to monitor yearly. Chronic atrial fibrillation ([facility] V24, [facility]/ [facility] V28) 12/21/2020 Overview (08/10/2024): Last Assessment & Plan: He presents in a rate controlled atrial fibrillation. He will continue metoprolol and diltiazem at current doses. His [id number] score is elevated at 5(age, CHF, HTN, [...] Continue regimen as above. Peripheral vascular disease ([facility] V24) 2020 Overview (08/10/2024): Last Assessment [...] Encounters Date Type Department Care Team Description 04/05/2025 Lab Requisition [facility] - Main Lab [address] [place] [address] Van Harris PA Benign essential microscopic hematuria 03/31/2025 Lab Requisition [facility] Lab [address] [place] [phone] Van Harris PA Benign essential microscopic hematuria; Urinary tract infection, site not specified 02/18/2025 1:15 PM EDT Office Visit Thoracic Surgery - [place] [address] [facility] [address] [place] [phone] Mamadou Doss MD Pulmonary nodule (Primary Dx) 02/11/2025 12:55 PM EDT - 02/11/2025 11:59 PM EDT Hospital Encounter [facility] CT Scan [address] [place] [phone] Pulmonary nodule; Pleural effusion Discharge Disposition: Home or Self Care from Last 3 Months Immunizations Immunization Administration Dates Next Due Pfizer SARS-CoV-2 COVID-19, mRNA, LNP-S, preservative free 09/03/2020,08/13/2020 Surgical History Surgery Date Site/Laterality Comments CORONARY ARTERY BYPASS GRAFT 2002 PROCEDURE: HISTORICAL CABG OTHER SURGICAL HISTORY 11/15/2023 PROCEDURE: DE BRONCHOSCOPY W/CPTR-ASST IMAGE-GUIDED NAVIGATION; COMMENT: Kyle Bronch/EBUS with Biopsies Medical History Medical History Date Comments Atrial fibrillation ([facility] V24, [facility] V28) 09/30/2023 DX:Atrial fibrillation ([facility]) Anemia 09/30/2023 DX:Anemia Mixed hyperlipidemia 09/30/2023 DX:Mixed hy perlipidemia Peripheral vascular disease ([facility] V24) 09/30/2023 DX:Peripheral vascular disea se (HCC) COPD (chronic obstructive pu lmonary disease) ([facility] V24, [facility] V28) 09/30/2023 DX:COPD (chronic o bstructive pulmonary disease) ([facility]) Essential (primary) hypertension 09/30/2023 DX:Essential (primary) [...] polyps Thoracic aortic aneurysm wit hout rupture ([facility] V24) DX:Thoracic aortic aneurysm without rupture (HCC) Basal cell carcinoma of skin , unspecified DX:Basal cell carcinoma of s kin, unspecified Vitamin D deficiency DX:Vitamin D deficiency Paroxysmal atrial fibrillati on (CMS/HCC V24, CMS/HCC V28) DX:Paroxysmal atrial fibril lation (HCC) Encounter for screening for malignant neoplasm of rectum DX:Encounter for screening f or malignant neoplasm of rectum Personal history of nicotine dependence DX:Personal history of nicot ine dependence Chronic diastolic (congestiv e) heart failure (CMS/HCC V24, CMS/HCC V28) DX:Chronic diastoli c (congestive) heart failure [...] Procedure Name Priority Date/Time Associated Diagnosis Comments CULTURE URINE Routine 03/31/2025 11:30 AM EDT Benign essential microscopic hematuria Urinary tract infection, site not specified CT CHEST WO CONTRAST Routine 02/11/2025 1:10 PM EDT Pulmonary nodule Pleural effusion ANNUAL BMP BLOOD TEST Routine 01/01/2022 from Last 3 Months or Most Recently Relevant to Health Maintenance Results * Culture urine (03/31/2025 11:30 AM EDT) Culture, Urine <10,000 cfu/ml, insignificant count, no further workup. 04/01/2025 2:[address] [facility] Urine Urine specimen obtained by clean catch procedure / Unknown 03/31/2025 11:30 AM EDT 03/31/2025 6:08 PM EDT [facility] MICROBIOLOGY - [facility] NERAL ORDERABLES Final Result [facility] [address] [place] [address], [place] [phone] * CT Chest wo Contrast (02/11/2025 1:10 [...] effusions, the right effusion smaller since 08/31/24. Teleelvia LARSON ([id number]) -------- FINAL REPORT -------- Dictated By: Nova Thomas Dictated Date: 02/15/2025 14:23 ET Assigned Physician: Nova Thomas Reviewed and Electronically Signed By: Nova Thomas Signed Date: 02/15/2025 14:35 ET Workstation ID: [id number] Transcribed By: Self Edit Transcribed Date: 02/15/2025 14:23 ET Narrative 02/15/2025 2:35 PM EDT History: Follow-up pulmonary nodule. Comparison: 08/31/24, 09/05/23 Technique: Helical volumetric imaging of the thorax was performed without IV contrast. DLP: 756.76 mGy/cm GE VOIQpeed VCT Iterative reconstruction technique Findings: The right [...] was performed withoutIV contrast. DLP: 756.76 mGy/cm GE VOIQpeed VCT Iterative reconstruction technique Findings: The right apical 34 x 14 mm mass being followed (image 74 series 4)measured 32 x 14 mm on the most recent exam and 39 x 15 mm on the 2023study, overall without significant change. The trachea and [...] pleural effusions, the right effusionsmaller since 08/31/24. Dylan LARSON ([id number]) -------- FINAL REPORT -------- Dictated By: Nova Thomas Dictated Date: 02/15/2025 14:23 ET Assigned Physician: Nova Thomas Reviewed and Electronically Signed By: Nova Thomas Signed Date: 02/15/2025 14:35 ET Workstation ID: [id number] Transcribed By: Self Edit Transcribed Date: 02/15/2025 14:23 ET Kaley [facility] PROCEDURES Final Resul t * Annual BMP Blood Test (01/01/2022) Annual BMP Blood Test abstracted Historical Provider MD HEALTH MAINTENANCE Final Result from Last 3 Months or Most Recently Relevant to Health Maintenance Insurance [employer] Care Teams Pocket Assembler Relationship Specialty Start Date End Date Darek Ronquillo MD [address] [place] [address] [place] [address] PCP - General 03/01/08
--- OUTSIDE RECORDS SUMMARY | 2025-04-07 11:19 | XMS_ITS | Encounter Summary ---
Author Organization [facility] Address [address] [place] [address] Care Team Providers Care Line Leader Name Role Phone Darek Ronquillo MD Primary Care Provider [phone] Encounter Details Date Type Department Care Team (Late st Contact Info) Description 03/31/[address] [facility] - Main Lab [address] [facility] [place] [address] Van Harris PA [address] [facility] [address] [place] [phone] Benign essential microscopic hematuria; Urinary tract infection, site not specified Social History Tobacco Use Types Packs/Day Years [...] hematuria Urinary tract infection, site not specified documented in this encounter Results * Culture urine (03/31/2025 11:30 AM EDT) Culture, Urine <10,000 cfu/ml, insignificant count, no further workup. 04/01/2025 2:51 PM EDT [facility] Urine Urine specimen obtained by clean catch procedure / Unknown 03/31/2025 11:30 AM EDT 03/31/2025 6:08 PM EDT [facility] MICROBIOLOGY - [facility] NERAL ORDERABLES Final Result [facility] [address] [place] [address], [place] [phone] documented in this encounter Visit Diagnoses Diagnosis Benign essential microscopic hematuria Urinary tract infection, site not specified documented in this encounter Care Teams Line Leader Relationship Specialty Start Date End Date Darek Ronquillo MD [address] [place] [address] Dr Sethi [place] PCP - General 03/01/08 documented as of this encounter
--- OUTSIDE RECORDS SUMMARY | 2025-04-07 11:19 | XMS_ITS | Encounter Summary ---
Author Organization [facility] Address [address] [facility] [address] [place] [address] Phone Care Team Providers Care Radiosonde Specialist Name Role Phone Pcp, Not Required Primary Care Provider Darek Monson MD Primary Care Provider Encounter Details Date Type Department Care Team (Late st Contact Info) Description 01/11/2021 Ancillary Orders [facility],Outside Imaging [address] [place] [address] System, Provider Not In, [facility] [address] [address] Social History Tobacco Use Types Packs/Day Years [...] on filedocumented in this encounter Care Teams Radiosonde Specialist Relationship Specialty Start Date End Date Pcp, Not Required [address] [place] [address] PCP - General 11/14/20 01/19/21 Darek Ronquillo MD [address] [place] [address] [place] [address] PCP - General Internal Medicine 01/20/21 documented as of this encounter Additional Source Comments The information contained in this document represents components of the legal health record. It is not the complete legal health record.[facility]
--- OUTSIDE RECORDS SUMMARY | 2025-04-07 11:19 | XMS_ITS | Patient Health Record ---
Author Organization [facility] Address [address] [place] [address] Care Team Providers Care Bench Grinder Name Role Phone Shima (RETIRED) Darek REHMAN Primary Care Provide r Soren Jacob Jr Unavailable [phone] Allergies No Known Allergies Reason For [...] Problem Status W/U Status Risk Notes Problem [id number] Heme positive stool (R19.5) Active confirmed Problem Gastritis (2648325) Gastritis (K29.70) Active confirmed Problem [id number] Anemia, unspecified type (D64.9) Active confirmed Vital Signs Temperature 97.5 degrees Fahrenheit 08/10/2024 Blood pressure diastolic 00 mm Hg 08/10/2024 Height 5 ft 11 in in 08/10/2024 Blood pressure systolic 000 mm Hg 08/10/2024 Weight 180 lbs 08/10/2024 BMI 25.10 kg/m2 08/10/2024 Procedures Procedure Date Ordered Date Performed Result Body Sit e VIDEO CAPSULE ENDOSCOPY 10/06/2024 N/A Encounters Encounter Location Date Provider Diagnosis [facility] [address] [place] [address] 08/10/2024 Soren Boothe Jr Anemia, unspecified type D64.9 [facility] [address] [place] [address] 08/04/2024 Soren Boothe Jr [facility] [address] [place] [address] 10/06/2024 Soren Boothe Jr Anemia, unspecified type D64.9 and Heme positive stool R19.5 [facility] [address] [place] [phone] 11/05/2024 Soren Boothe Jr [facility] [address] [place] [address] 01/18/2025 Soren Boothe Jr Assessments Encounter Date [...] Coverage Start Date Coverage End Date [facility] [address] [place] [address] [phone] [id number] STEFFEN ANTHONY Self - patient is the insured Medical (General) History Medical History History ICD Code Hypotension Coronary artery disease with heart failu re/preserved ejection fraction Atrial fibrillation Anemia Right maxillary sinus tumor, surgery at [facility] General Surgical History Surgery Date(Month/Year) Coronary artery bypass grafting
== END 2025-04-07 10:48 | disposition home or self-care (01) ==
LOC: HO.HMCHD 10:05
PROVIDERS: PCP Physician Assistant Medical; Visit Provider Physician Assistant Medical
DX: S51.812A Laceration without foreign body of left forearm, initial encounter (principal); S01.01XA Laceration without foreign body of scalp, initial encounter

== ENCOUNTER 2025-04-07 10:46 | Outpatient (REF) | payer MEDICARE, SELFPAY ==
[2025-04-07 13:23] LABS: Anion Gap 10 (12-20); Blood Urea Nitrogen 18 mg/dL (9-16); Calcium 9.2 mg/dL (8.4-10.2); Carbon Dioxide 30 mmol/L (22-29); Chloride 106 mmol/L (96-108); Estimated Glomerular Filt Rate > 60; Potassium 4.0 mmol/L (3.3-5.1); Sodium 142 mmol/L (135-145)
== END 2025-04-07 10:47 | disposition home or self-care (01) ==
LOC: HO.10HDL 10:46
PROVIDERS: Referring Provider Internal Medicine Medical Oncology
DX: I50.30 Unspecified diastolic (congestive) heart failure (principal); S51.812D Laceration without foreign body of left forearm, subsequent encounter; S01.01XD Laceration without foreign body of scalp, subsequent encounter
CPT/HCPCS: 36415; 80048

== ENCOUNTER 2025-04-26 10:08 | Outpatient (AMB) | payer MEDICARE, SELFPAY ==
[2025-04-26 10:40] VITALS: BP 122/70; PULSE 63; TEMP 36.2; O2SAT 98; BMI 21.9
--- NOTE | 2025-04-26 10:40 | A.OFFPC_ITS ---
Vital Signs 04/26/25 10:40 Height 5 ft 11 in Weight 157 lb 4 oz BMI 21.9 BP 122/70 Blood Pressure Location Lt brachial Position Sitting Pulse 63 Pulse Source Pulse Oximeter Temp 97.2 F Temp Source Temporal Artery Scan Pulse Oximetry (%) 98 Oxygen Delivery Method Room Air Intake Visit Reasons: PE- see comments Maintenance Plumber Required: No Accompanied by: Spouse Allergies hydromorphone (From Dilaudid) Adverse Reaction (Verified 05/21/25 10:11) Confusion Medication List - Last Reconciled 05/25/25 by MARSHA Hair atorvastatin 40 mg PO DAILY@1700 90 days bumetanide 2 mg PO BID@0700,1700 90 days cholecalciferol (vitamin D3) 10 mcg PO DAILY@0700 digoxin 125 mcg PO SUMOTUTHFR dutasteride (Avodart) 0.5 mg PO DAILY@1700 fenofibrate nanocrystallized 145 mg PO DAILY@0700 90 days ferrous sulfate 325 mg PO BID@0700,1700 metolazone 2.5 mg PO MOWEFR PRN metoprolol succinate ER 25 mg PO DAILY@1700 midodrine 2.5 mg PO TID@0700,1200,1700 omeprazole 20 mg PO DAILY@0630 potassium chloride ER 40 mEq (2 x 20 mEq) PO QAM rivaroxaban (Xarelto) 20 mg PO BEDTIME vit C,Y-Rk-mljyl-lutein-zeaxan 250-90-40-1 mg (PreserVision AREDS-2) 1 tab PO BID@1200,1700 Tobacco use date assessed: 04/26/25 Fall risk assessment: 1 Fall in past year Last assessed Fall Risk: 04/26/25 Dental Screening Dental Screen Date: 04/26/25 Did you have a dental visit in the last 12 months?: Yes Did you have a dental problem in the last 6 months where you did not have access to dental care?: No HPI HPI Comments History of Present Illness Details The patient is an 80-year-old male with anemia, HLD, CAD, CHF, Afib on Xarelto, GERD and low vitamin D presenting with a review of recent diagnostic findings and management of ongoing health concerns. He was last in the ER on 03/28 after a fall. The patient has a history of bladder wall thickening noted on a recent CT scan, which was considered to be inflammatory in nature. Additionally, there was a finding of fluid at the base of the lungs, which has been consistent with previous scans. The patient reports no increase in dyspnea and denies significant leg swelling, although some positional edema is noted from prolonged sitting. The patient has a history of anemia, with recent lab work in March showing improvement in hemoglobin levels from 8 to 10 g/dL. The patient experiences increased urinary frequency, urinating approximately every hour during the day, which is attributed to bladder wall thickening and possible prostate enlargement. The patient consumes a significant amount of fluids daily, which may contribute to this symptom. He is on Atorvastatin and Fenofibrate for HLD. He is on Bumetanide, Digoxin, metolazone, metoprolol, midodrine and potassium. He was last seen by Cardiology on 03/23. He has a follow up on 07/27. He takes Xarelto for Afib. He is on Omeprazole for GERD. He is on Iron for his Anemia. He is on Dutasteride and was last sen by urology on 04/07. He is on vitamin D and PreserVision. He was last seen by Nephrology on 01/17. Patient was informed and verbally consented to the use of an ambient scribe for clinic note documentation during this visit. [facility] Medical History (Updated 05/25/25 @ 07:34 by MARSHA Hair) (HFpEF) heart failure with preserved ejection fraction Acute blood loss anemia Acute congestive heart failure Acute upper gastrointestinal bleeding Afib Anemia CAD (coronary artery disease) Chronic atrial fibrillation CKD (chronic kidney disease) COPD (chronic obstructive pulmonary disease) Gastritis Gross hematuria Hyperlipidemia Low blood pressure Metabolic alkalosis Nasal sinus tumor Skin tear of left forearm without complication Urinary frequency Surgical History Hx of CABG Family History Mother No problems noted. Father No problems noted. Social History Household Members: Spouse Housing: House Do you presently have visiting nurse or other home services: Yes Alcohol intake: current Alcohol intake frequency: 0-2 drinks per day Alcohol type: beer Comment: Patient reports 3 beers in the afternoon and 1 mixed drink before bed, bon Patient Tobacco Use Status: Former Tobacco user Tobacco use type: Cigar e-Cigarette/Vaping Use: Former Use Advance Directives: Yes Advance Directives on File: Yes Advance Directives Date on File: 02/16/22 service: No Current occupational status: retired Cognitive needs: Yes (walker) Hearing needs: No Vision needs: Yes (rx glasses) Questionnaire PHQ-9 Over the last 2 weeks, how often have you been bothered by any of the following problems? 1. Little interest or pleasure in doing things: not at all 2. Feeling down, depressed, or hopeless: nearly every day 3. Trouble falling or staying asleep, or sleeping too much: not at all 4. Feeling tired or having little energy: not at all 5. Poor appetite or overeating: not at all 6. Feeling bad about yourself - or that you are a failure or have let yourself or your family down: not at all 7. Trouble concentrating on things, such as reading the newspaper or watching television: not at all 8. Moving or speaking so slowly that other people could have noticed. Or the opposite - being so fidgety or restless that you have been moving around a lot more than usual: not at all 9. Thoughts that you would be better off or of hurting yourself in some way: not at all Total score: 3 Depression Screening Interpretation: Negative Depression Screening Done: Yes Source: Developed by Drs. Homer Ash, Leela Torre, Kota Ann and colleagues, with an educational annika from [employer]. Thrive Questionnaire Date Thrive assessed: 04/26/25 I am a: Patient Within the past 12 months, did the food you bought not last and you didn't have the money to get more?: Never true Within the past 12 months, did you worry whether your food would run out before you got money to buy more?: Never true Do you have trouble paying for medicines?: No Do you have trouble getting transportation to medical appointments?: No Do you have trouble paying your heating and electricity bill?: No Do you have trouble taking care of your child, family member or friend?: No Do you have trouble with day-to-day activities such as bathing, preparing meals, shopping, managing finances, etc.?: No Are you currently unemployed and looking for a job?: No Are you interested in more education?: No THRIVE Score: 0 AUDIT C Alcohol Use Questionnaire (AUDIT-C) 1. How often do you have a drink containing alcohol?: Monthly or less 2. How many drinks containing alcohol do you have on a typical day when you are drinking?: 1 or 2 3. How often do you have six or more drinks on one occasion?: Less than monthly Total Score: 2 ASHLEY-7 AMB Questionnaire ASHLEY-7 Date ASHLEY - 7 assessed: 04/26/25 Feeling nervous, anxious, or on edge: 0 = Not at all Not being able to stop or control worryin = Not at all Worrying too much about different things: 0 = Not at all Trouble relaxin = Not at all Being so restless that it is hard to sit still: 0 = Not at all Becoming easily annoyed or irritable: 0 = Not at all Feeling afraid as if something awful might happen: 0 = Not at all Total ASHLEY-7 score (0-4 normal; 5-9 mild; 10-14 moderate; 15-21 severe): 0 Source: Developed by Drs. Homer Ash, Leela Torre, Kota Ann and colleagues, with an educational annika from [employer]. Review of Systems Narrative CONSTITUTIONAL overall doing OK HEAD/NECK Negative EAR/NOSE/MOUTH/THROAT Negative RESPIRATORY Negative CARDIOVASCULAR no chest pain or shortness of breath GASTROINTESTINAL Heartburn controlled on Omeprazole GENITOURINARY Reports increased urinary frequency, urinating approximately every hour during the day MUSCULOSKELETAL Negative NEUROLOGICAL Negative PSYCHIATRIC mild depression Physical exam (Primary Care) Vital Signs: Last Vital Signs Temp 97.2 F 04/26/25 10:40 Pulse 63 04/26/25 10:40 BP 122/70 04/26/25 10:40 Pulse Ox 98 04/26/25 10:40 Oxygen Delivery Method Room Air 04/26/25 10:40 BMI result Body Mass Index 21.9 GENERAL Well developed, frail, in no apparent distress, in wheel chair HEENT Head-Normocephalic Eyes- PERRLA, EOMI, Conjuctiva clear, lids WNL Ears- Canals clear, TMs WNL Mouth/Throat-No lesions, no erythema, no exudate Neck- Supple, No lymphadenopathy, thyroid WNL RESPIRATORY Normal I:E, Clear to auscultation CARDIOVASCULAR Regular, rate and rhythm, No murmurs or rubs GASTROINTESTINAL Soft, nontender, normal bowel sounds, no masses NEUROLOGICAL Gait normal PSYCHIATRIC Oriented to person, place and time Mood and affect WNL Appearance WNL Speech WNL Thought processes WNL Tobacco/Smoking Status: Tobacco use Status Tobacco use date assessed 04/26/25 04/26/25 10:42 Patient Tobacco Use Status Former Tobacco user 04/26/25 10:42 Tobacco use type Cigar 04/26/25 10:42 e-Cigarette/Vaping Use Former Use 04/26/25 10:42 PHQ-9: PHQ-9 Score PHQ-9: Total score 3 05/25/25 07:36 Depression Screening Interpretation: Negative Thrive Assessment: Date of Thrive Assessment Date Thrive assessed 04/26/25 04/26/25 10:42 Results Reviewed Results Reviewed: - CT Scan: Bladder wall thickening and fluid at the base of the lungs noted - Lab Work: Hemoglobin improved from 8 to 10 g/dL Coding Level of Care Code Established Pt Est Pt Level 4 (18721) Patient Type Established Diagnoses (HFpEF) heart failure with preserved ejection fraction I50.30 CAD (coronary artery disease) I25.10 Afib I48.91 Anemia, unspecified type D64.9 Anemia type: unspecified type Urinary frequency R35.0 CKD (chronic kidney disease) N18.9 Time Spent (min) 35 Comment Time spent on chart review, medication reconciliation, H&P, patient education, follow up Assessment & Plan Assessment & Plan (1) (HFpEF) heart failure with preserved ejection fraction: Code(s): I50.30 - Unspecified diastolic (congestive) heart failure Category: Medical Plan: Patient to continue current medications and follow up with Cardiology (2) CAD (coronary artery disease): Code(s): I25.10 - Atherosclerotic heart disease of [place] coronary artery without angina pectoris Category: Medical Plan: Patient to continue current medications and follow up with Cardiology (3) Afib: Comment: on xarelto Code(s): I48.91 - Unspecified atrial fibrillation Category: Medical Plan: Patient to continue current medications and follow up with Cardiology (4) Anemia: Code(s): D64.9 - Anemia, unspecified Category: Medical Qualifiers: Anemia type: unspecified type Qualified Code(s): D64.9 - Anemia, unspecified Plan: The patient's anemia has shown improvement with hemoglobin levels rising from 8 to 10 g/dL. Continued monitoring of hemoglobin levels is recommended. Patient to follow up in 3 months or sooner if symptoms persist or worsen. (5) Urinary frequency: Code(s): R35.0 - Frequency of micturition Category: Medical Plan: The increased urinary frequency is attributed to bladder wall thickening and possible prostate enlargement. The patient is advised to manage fluid intake and continue follow-up with the urologist. (6) CKD (chronic kidney disease): Code(s): N18.9 - Chronic kidney disease, unspecified Category: Medical Plan: Patient to continue to follow up with Nephrology. Plan During the visit, we discussed the findings of the recent CT scan, which showed bladder wall thickening and fluid at the lung bases. The patient was advised to continue monitoring symptoms and maintain follow-up appointments with the urologist and aerospace medicine physician. We also reviewed the patient's anemia, noting i mprovement in hemoglobin levels, and recommended continued monitoring. The increased urinary frequency was attributed to bladder wall thickening and possible prostate enlargement, with advice given on managing fluid intake. Positional edema was noted but did not require specific intervention at this time. Patient Instructions: - Continue taking diuretics as prescribed, adjusting timing as discussed. - Monitor urinary symptoms and report any significant changes to your urologist. - Maintain follow-up appointments with your aerospace medicine physician and urologist. - Manage fluid intake to help control urinary frequency.
== END 2025-04-26 11:29 | disposition home or self-care (01) ==
LOC: HO.HMCHD 10:08
PROVIDERS: PCP Physician Assistant Medical; Visit Provider Physician Assistant Medical
DX: I50.30 Unspecified diastolic (congestive) heart failure (principal); I25.10 Atherosclerotic heart disease of native coronary artery without angina pectoris; I48.91 Unspecified atrial fibrillation; D64.9 Anemia, unspecified; R35.0 Frequency of micturition; N18.9 Chronic kidney disease, unspecified

== ENCOUNTER → 2025-04-26 10:08 | Outpatient (BNVA) | payer MEDICARE, SELFPAY | PROVIDERS: PCP Physician Assistant Medical; Visit Provider Physician Assistant Medical | DX: I25.10 Atherosclerotic heart disease of native coronary artery without angina pectoris (principal); I50.30 Unspecified diastolic (congestive) heart failure; I48.91 Unspecified atrial fibrillation; D64.9 Anemia, unspecified; R35.0 Frequency of micturition; N18.9 Chronic kidney disease, unspecified; Z13.31 Encounter for screening for depression; Z13.39 Encounter for screening examination for other mental health and behavioral disorders | CPT/HCPCS: 96127; 99212 ==

== ENCOUNTER 2025-05-21 09:55 | Emergency (ER) | payer MEDICARE, SELFPAY ==
--- NOTE | 2025-05-21 10:00 | ED_ITS ---
History of Present Illness General Chief Complaint: General Medical Stated Complaint: nosebleed Time Seen by Provider: 05/21/25 09:59 Source: patient, family and RN notes reviewed Mode of arrival: ambulatory Limitations: no limitations History of Present Illness ED Provider: Ely Flores PA-C HPI Narrative: Patient presents with a right-sided epistaxis that began around 07:00 this gordon swenson. Family reports the patient likely awoke with the bleed and has a nervous habit of picking the right nostril at an area of persistent scar tissue from prior right-sided sinus surgery for cancer (5?6 years ago). They applied ?almost a whole bottle? of Afrin spray and placed packing, resulting in clot formation and cessation of active bleeding. Previous nosebleeds occur occasionally and are usually manageable per family. No antecedent cough or sneeze. Denies headache. Initially denied dizziness but later reported feeling dizzy, attributing this to not having eaten. No chest pain. Not currently on chronic anticoagulation with Xarelto for atrial fibrillation. Review of Systems: ? HEENT: Positive for right-sided nasal bleeding earlier today; no current active bleeding with packing in place. ? Neurologic: Denies headache. Reports transient dizziness likely related to not eating. ? Cardiovascular/Respiratory: No chest pain reported. Related Data Home Medications ?Medication ?Instructions ?Recorded ?Confirmed dutasteride 0.5 mg capsule 0.5 mg PO DAILY@1700 05/25/25 (Avodart) cholecalciferol (vitamin D3) 10 10 mcg PO DAILY@0700 0 09/05/23 05/25/25 mcg (400 unit) tablet ferrous sulfate 325 mg (65 mg 325 mg PO BID@0700,1700 09/05/23 05/25/25 iron) tablet vit C 250 mg-vit E 90 mg-zinc 40 1 tab PO BID@1200,170 0 09/05/23 05/25/25 mg-copper 1 sa-ncenzo-dhanqv capsule (PreserVision AREDS-2) digoxin 125 mcg (0.125 mg) tablet 125 mcg PO SUMOTUTHF R 09/29/24 05/25/25 midodrine 2.5 mg tablet 2.5 mg PO TID@0700,1200,1700 12/17/24 05/25/25 Previous Rx's ?Medication ?Instructions ?Recorded metolazone 2.5 mg tablet 2.5 mg PO MOWEFR PRN Increas ed 01/09/25 weight #30 tabs metoprolol succinate 25 mg 25 mg PO DAILY@1700 #90 tab s 01/25/25 tablet,extended release 24 hr omeprazole 20 mg capsule,delayed 20 mg PO DAILY@0630 # 90 caps 02/18/25 release potassium chloride 20 mEq 40 meq (2 x 20 mEq) PO QAM # 180 03/18/25 tablet,extended release tabs rivaroxaban 20 mg tablet (Xarelto) 20 mg PO BEDTIME #9 0 tabs 04/12/25 bumetanide 2 mg tablet 2 mg PO BID@0700,1700 90 day s #180 05/17/25 tabs atorvastatin 40 mg tablet 40 mg PO DAILY@1700 90 days #90 05/20/25 tabs fenofibrate nanocrystallized 145 145 mg PO DAILY@0700 90 days #90 05/20/25 mg tablet tabs Allergies Allergy/AdvReac Type Severity Reaction Status Date / Time hydromorphone (From Dilaudid) AdvReac Confusion Verified 05/25/25 14:21 Review of Systems Review of Systems: Yes all other systems are reviewed and are negative PMFSH Past Medical History Attestation statement: The following information was validated with the patient. Source: old records reviewed, obtained from family and nursing notes reviewed Medical History CKD (chronic kidney disease) Urinary frequency Skin tear of left forearm without complication Metabolic alkalosis Gastritis Gross hematuria Chronic atrial fibrillation (HFpEF) heart failure with preserved ejection fraction Low blood pressure Anemia Acute congestive heart failure Acute upper gastrointestinal bleeding Acute blood loss anemia COPD (chronic obstructive pulmonary disease) Hyperlipidemia Afib Nasal sinus tumor CAD (coronary artery disease) Surgical History Hx of CABG Family History Family History Mother No problems noted. Father No problems noted. Social History Social History Household Members: Spouse Housing: House Do you presently have visiting nurse or other home services: Yes Alcohol intake: current Alcohol intake frequency: 0-2 drinks per day Alcohol type: beer Comment: Patient reports 3 beers in the afternoon and 1 mixed drink before bed, bon Patient Tobacco Use Status: Former Tobacco user Tobacco use type: Cigar e-Cigarette/Vaping Use: Former Use Advance Directives Date on File: 02/16/22 service: No Current occupational status: retired Cognitive needs: Yes (walker) Hearing needs: No Vision needs: Yes (rx glasses) Physical Exam Exam: Exam: General: Appears in no acute distress, appears well nourished body habitus is normal, appears stated age. No septic or ill-appearing. Vitals reviewed normal, PMH/Social and Surgical hx reviewed including allergies and current medications. - Head: Normocephalic, no obvious trauma or skin lesions noted. Eyes: EOMI ENMT: moist oral mucosa. Right anterior nasal passage with packing (removed) and visible clot removed, no active bleeding observed. No obvious external deformity. Mucosa otherwise not evaluated at this time. Neck: trachea midline Cardiovascular: peripheral perfusion normal, irregularly irregular rate/rhythm, no tachycardia Respiratory: no respiratory distress Abdomen: nondistended Extremities: warm and moving without difficulty Psych: Cooperative Neuro: Alert and oriented. Vital Signs: Vital Signs: Last Vital Signs Temp 97.7 F 05/21/25 11:05 Pulse 77 05/21/25 11:05 Resp 16 05/21/25 11:05 BP 132/60 05/21/25 11:05 Pulse Ox 94 05/21/25 11:05 O2 Del Method Room Air 05/21/25 11:05 BMI result Body Mass Index 22.6 Medications Administered Discontinued Medications Generic Name Dose Route Start Last Admin Trade Name Freq PRN Reason Stop Dose Admin Oxymetazoline HCl 2 spray 05/21/25 10:20 05/21/25 11:04 Oxymetazoline Hcl 0.05 % Nasal 15 Ml [place] NOSTRIL-B 05/21/25 10:21 2 spray ONCE ONE Administration Medical Decision Making Medical Decision Making MDM Narrative: 77-year-old with history of atrial fibrillation, prior right-sided sinus surgery for cancer, and habitual nasal picking, presenting with right anterior epistaxis. Patient is not currently on anticoagulation. The episode began this morning and was managed at home with substantial Afrin spray and nasal packing, resulting in clot formation and cessation of active bleeding. On evaluation, the patient is hemostatic, with no active bleeding or major complications observed. No headache, chest pain, or significant dizziness (attributed to not eating) was reported. No laboratory or imaging studies were required today, as prior CT scans have been negative since sinus surgery and the clinical presentation is consistent with minor anterior epistaxis. Therapeutic interventions included removal and reapplication of packing and Afrin spray in clinic, with education provided to the patient and family regarding proper technique (pinching nostrils for at least 30 seconds after Afrin application, leaving packing in place for 3 days if bleeding is controlled, and leaning head forward to avoid aspiration). Clinical reasoning is based on current guidelines, which do not recommend routine interruption of oral anticoagulation for minor, self-limited anterior epistaxis; therapy should be continued if hemostasis is achieved and bleeding is not major or clinically relevant nonmajor. Additionally, routine prophylactic oral antibiotics are not recommended for anterior nasal packing left in place for up to 72 hours unless specific risk factors are present. The management plan is guideline-based and tailored to the patient's risk factors and current stability. Citation: Current guidelines do not recommend routine interruption of oral anticoagulation for minor, self-limited anterior epistaxis; therapy should be continued if hemostasis is achieved and bleeding is not major or clinically relevant nonmajor. Routine prophylactic oral antibiotics are not recommended for anterior nasal packing left in place for up to 72 hours; guidelines support omission unless specific risk factors are present. Problem #1: Epistaxis (right anterior) Assessment: Likely traumatic from habitual nasal picking at scar tissue; bleeding risk increased by anticoagulation. Currently hemostatic with packing and topical vasoconstrictor. Citation: Current guidelines do not recommend routine interruption of oral anticoagulation for minor, self-limited anterior epistaxis; therapy should be continued if hemostasis is achieved and bleeding is not major or clinically rel evant nonmajor. Plan: - Remove current packing in clinic, inspect source, reapply Afrin x5 sprays, and repack as needed. - Patient/family education: pinch nostrils at least 30 seconds after Afrin appl ication; leave packing in place for 3 days if bleeding controlled; lean head slightly forward (avoid tilting back). Citation: Routine prophylactic oral antibiotics are not recommended for anterior nasal packing left in place for up to 72 hours; guidelines support omission unless specific risk factors are present. - Return immediately for recurrent or uncontrolled bleeding. Follow-up: RTC or ED sooner for recurrent epistaxis, otherwise routine follow-up per primary care. Differential Diagnosis Differential Diagnoses: The differential diagnosis associated with the presentation includes see MDM Admission/Observation Consideration of admission/observation: Escalation of care including admission/observation considered Independent Historian Clinical information obtained from an independent historian. History obtained from or confirmed by: Spouse Procedures Epistaxis Control Time Out Performed: Yes Nostril: Yes right Nose prepped with: Yes oxymetazoline Direct inspection: Yes anterior source identified Direct inspection method: Yes nasal speculum Clots removed by: Yes manually Epistaxis treatment: Yes nasal tampon (soaked with oxymetazoline) Results of treatment: Yes bleeding controlled Complications: Yes none Discharge Plan Discharge Clinical Impression: Acute anterior epistaxis Patient Disposition: Home, Self-Care Instructions: Nosebleed (ED) Additional Instructions: YOu were seen in the emergency department today after having a nosebleed at home from mechanical causes. You have packing in place, that you may remove 1 hour from now. -Utilize direct pressure should nosebleed recur. -Use cotton ball, soak it with afrin, place in the affected nose with enough sticking out still that you can still manually remove it after. -Apply pressure with with nasal clamp just below the nasal bridge with head leaning forward for period of 20 minutes, try this 2-3 times. -If bleeding controlled, leave in place for the day. -If unable to control bleeding, return for reevaluation. -Follow-up with primary care physician or ENT Prescriptions: No Action metoprolol succinate 25 mg tablet extended release 24 hr 25 mg PO DAILY@1700 Qty: 90 1RF omeprazole 20 mg capsule,delayed release(DR/EC) 20 mg PO DAILY@0630 Qty: 90 1RF potassium chloride 20 mEq tablet extended release 40 meq PO QAM Qty: 180 3RF Xarelto 20 mg tablet 20 mg PO BEDTIME Qty: 90 3RF bumetanide 2 mg tablet 2 mg PO BID@0700,1700 90 Days Qty: 180 3RF fenofibrate nanocrystallized 145 mg tablet 145 mg PO DAILY@0700 90 Days Qty: 90 1RF atorvastatin 40 mg tablet 40 mg PO DAILY@1700 90 Days Qty: 90 1RF midodrine 2.5 mg tablet 2.5 mg PO TID@0700,1200,1700 metolazone 2.5 mg tablet 2.5 mg PO MOWEFR PRN (Reason: Increased weight) Qty: 30 0RF Rx Instructions: If your weight goes up by 2 Ibs in 24 hours ferrous sulfate 325 mg (65 mg iron) tablet 325 mg PO BID@0700,1700 cholecalciferol (vitamin D3) 10 mcg (400 unit) Tablet 10 mcg PO DAILY@0700 PreserVision AREDS-2 250-90-40-1 mg Capsule 1 tab PO BID@1200,1700 dutasteride [Avodart] 0.5 mg capsule 0.5 mg PO DAILY@1700 digoxin 125 mcg (0.125 mg) tablet 125 mcg PO SUMOTUTHFR Rx Instructions: non on WED and SAT Referrals: Stephenie Da Silva PA [Primary Care Provider, Internal Medicine] Clinical Impression: Acute anterior epistaxis Interventions: ED Discharge Assessment Last Done: 05/21/25 11:05 Discharge Date/Time: 05/21/25 11:05 Print Language: Albanian
[2025-05-21 10:09] VITALS: BP 132/60; PULSE 77; RESP 16; TEMP 36.5; O2SAT 94; BMI 22.6
[2025-05-21] MEDS: Oxymetazoline HCl 0.05 % Nasal 15 ML SPRAY 2 SPRAY NOSTRIL-B (11:04)
[2025-05-21 11:05] VITALS: BP 132/60; PULSE 77; RESP 16; TEMP 36.5; O2SAT 94
--- OUTSIDE RECORDS SUMMARY | 2025-05-21 13:06 | XMS_ITS | Encounter Summary ---
Author Organization [facility] Address [address] [facility] [address] [place] [address] Phone Care Team Providers Care Breakfast Manager Name Role Phone Unknown, Unknown Primary Care Provider Gurmeet gutierrez Pcp, Not Required Primary Care Provider Darek Monson MD Primary Care Provider Encounter Details Date Type Department Care Team (Late st Contact Info) Description 09/26/2020 Procedure Pass [facility] - [facility] [address] [place] [address] Social History Tobacco Use Types Packs/Day Years [...] on filedocumented in this encounter Care Teams Breakfast Manager Relationship Specialty Start Date End Date Unknown, Unknown, MD PCP - General 08/30/20 11/13/20 Pcp, Not Required [address] [place] [address] PCP - General 11/14/20 01/19/21 Darek Ronquillo MD [address] [place] [address] Dr RIVAS David WILIAN [id number] PCP - General Internal Medicine 01/20/21 documented as of this encounter Additional Source Comments The information contained in this document represents components of the legal health record. It is not the complete legal health record.[facility]
--- OUTSIDE RECORDS SUMMARY | 2025-05-21 13:07 | XMS_ITS | Encounter Summary ---
Author Organization [facility] Address [address] [place] [address] Phone Care Team Providers Care Shopfitter Name Role Phone Pcp, Not Required Primary Care Provider Darek Monson MD Primary Care Provider Encounter Details Date Type Department Care Team (Late st Contact Info) Description 11/14/2020 Procedure Pass [facility]IOP DEPT [address] [place] [address] Social History Tobacco Use Types Packs/Day Years [...] on filedocumented in this encounter Care Teams Shopfitter Relationship Specialty Start Date End Date Pcp, Not Required [address] [place] [address] PCP - General 11/14/20 01/19/21 Darek Ronquillo MD [address] [place] [address] Dr RIVAS WILIAN [place] [address] PCP - General Internal Medicine 01/20/21 documented as of this encounter Additional Source Comments The information contained in this document represents components of the legal health record. It is not the complete legal health record.[facility]
--- OUTSIDE RECORDS SUMMARY | 2025-05-21 13:07 | XMS_ITS | Encounter Summary ---
Author Organization [facility] Address [address] [place] [address] Phone Care Team Providers Care Roller Cleaner Name Role Phone Darek Ronquillo MD Primary Care Provider Encounter Details Date Type Department Care Team (Late st Contact Info) Description 04/05/2021 Procedure Pass [facility] - [facility] [place] [address] [place] [address] Social History Tobacco Use Types Packs/Day Years [...] on filedocumented in this encounter Care Teams Roller Cleaner Relationship Specialty Start Date End Date Darek Ronquillo MD [address] [place] [address] Dr RIVAS WILIAN [place] [id number] PCP - General Internal Medicine 01/20/21 documented as of this encounter Additional Source Comments The information contained in this document represents components of the legal health record. It is not the complete legal health record.[facility]
--- OUTSIDE RECORDS SUMMARY | 2025-05-21 13:07 | XMS_ITS | Encounter Summary ---
Author Organization [facility] Address [address] [place] [address] Phone Care Team Providers Care Concrete Pouring Supervisor Name Role Phone Pcp, Not Required Primary Care Provider Darek Monson MD Primary Care Provider Encounter Details Date Type Department Care Team (Late st Contact Info) Description 12/05/2020 Procedure Pass [facility] [address] [place] [address] Social History Tobacco Use Types Packs/Day Years [...] on filedocumented in this encounter Care Teams Concrete Pouring Supervisor Relationship Specialty Start Date End Date Pcp, Not Required [address] [place] [address] PCP - General 11/14/20 01/19/21 Darek Ronquillo MD [address] [place] [address] Dr RIVAS WILIAN Hernandez [address] PCP - General Internal Medicine 01/20/21 documented as of this encounter Additional Source Comments The information contained in this document represents components of the legal health record. It is not the complete legal health record.[facility]
--- OUTSIDE RECORDS SUMMARY | 2025-05-21 13:07 | XMS_ITS | Encounter Summary ---
Author Organization [facility] Address [address] [place] [address] Phone Care Team Providers Care Passenger Service Manager Name Role Phone Darek Ronquillo MD Primary Care Provider Encounter Details Date Type Department Care Team (Late st Contact Info) Description 04/05/2021 Procedure Pass [facility] - [facility] Main [place] [address] [place] [address] Social History Tobacco Use Types Packs/Day Years [...] on filedocumented in this encounter Care Teams Passenger Service Manager Relationship Specialty Start Date End Date Darek Ronquillo MD [address] [place] [address] Dr RIVAS [place]IL[place] [address] PCP - General Internal Medicine 01/20/21 documented as of this encounter Additional Source Comments The information contained in this document represents components of the legal health record. It is not the complete legal health record.[facility]
--- OUTSIDE RECORDS SUMMARY | 2025-05-21 13:08 | XMS_ITS | Encounter Summary ---
Author Organization [facility] Address [address] [facility] [address] [place] [address] Phone Care Team Providers Care Family Resource Specialist Name Role Phone Pcp, Not Required Primary Care Provider Darek Monson MD Primary Care Provider Encounter Details Date Type Department Care Team (Late st Contact Info) Description 12/02/2020 Procedure Pass [facility] PERIOP DEPT [address] [place] [address] Social History Tobacco Use Types Packs/Day Years [...] 5:00 PM DYANAT Jackie Mcguire RN * [place] Suicide Severity Rating Scale (Screener/Recent Self-Report) Question [...] on filedocumented in this encounter Care Teams Family Resource Specialist Relationship Specialty Start Date End Date Pcp, Not Required [address] [place] [address] PCP - General 11/14/20 01/19/21 Darek Ronquillo MD [address] [place] [address] [place] [address] PCP - General Internal Medicine 01/20/21 documented as of this encounter Additional Source Comments The information contained in this document represents components of the legal health record. It is not the complete legal health record.[facility]
--- OUTSIDE RECORDS SUMMARY | 2025-05-21 13:08 | XMS_ITS | Encounter Summary ---
Author Organization [facility] Address [address] [facility] [address] [place] [address] Phone Care Team Providers Care Supersonic Engineer Name Role Phone Darek Ronquillo MD Primary Care Provider Reason for Referral * MRI/CAT Scan - Closed Specialty Diagnoses / Procedures Referred By Renetta castelan Referred To Contact Radiology Diagnoses Maxillary sinus cancer Procedures CT Neck CHG CT NECK TISSUE CONTRAST Sharla De La Cruz MD [address] [place] [address], [facility] [address] [place] [address] Phone: tel: fax: mailto:[email or web address] Referral ID Status Reason Start Date Expiration Date Visits Re quested Visits Authorized [id number] Closed 06/12/2022 10/28/2022 1 1 * MRI/CAT Scan - Closed Specialty Diagnoses / Procedures Referred By Renetta castelan Referred To Contact Radiology Diagnoses Maxillary sinus cancer Disorientation, unspecified Procedures CT Head CHG CT SCAN HEAD CONTRAST CHG CT SCAN HEAD COMBO Sharla De La Cruz MD [address] [place] [address], [facility] [address] [place] [address] Phone: tel: fax: mailto:[email or web address] Referral ID Status Reason Start Date Expiration Date Visits Re quested Visits Authorized [id number] Closed 06/12/2022 10/28/2022 1 1 Encounter Details Date Type Department Care Team (Late st Contact Info) Description 06/05/2022 Transcribe Orders Virtual Department [address] [place] [address] Sharla De La Cruz MD [address] [facility], [address] [place] [address] [email or web address] Maxillary sinus cancer (Primary Dx) Social History [...] right lateral rhinotomy and maxillectomy, with mild kav-xdcv-btjx soft tissue enhancement in the inferior aspect [...] sinonasal squamous cell carcinoma. There is mild zqo-jvxx-ubsx soft tissue enhancement in the inferior aspect [...] and sinonasal squamous cell carcinoma. There is xegdocu-yled-apxt soft tissue enhancement in the inferior aspect [...] prior right lateral rhinotomy andmaxillectomy, with mild oxi-djlh-rgll soft tissue enhancement in theinferior aspect of the right maxillary sinus fossa, most likelyrepresenting mucosal thickening. No definite evidence of enhancing mass. Sharla Diaz MD IMG CT HEAD/NECK Final Result documented in this encounter Visit Diagnoses Diagnosis Maxillary sinus cancer- Primary Maxillary sinus cancer documented in this encounter Care Teams Supersonic Engineer Relationship Specialty Start Date End Date Darek Ronquillo MD [address] [place] [address] [place] [address] PCP - General Internal Medicine 01/20/21 documented as of this encounter Additional Source Comments The information contained in this document represents components of the legal health record. It is not the complete legal health record.[facility]
--- OUTSIDE RECORDS SUMMARY | 2025-05-21 13:08 | XMS_ITS | Encounter Summary ---
Author Organization [facility] Address [address] [place] [address] Phone Care Team Providers Care Crop And Soil Technician Name Role Phone Darek Ronquillo MD Primary Care Provider Encounter Details Date Type Department Care Team (Late st Contact Info) Description 06/05/2022 Procedure Pass [facility], Ct Scan - [address] [address] Social History Tobacco Use Types Packs/Day Years [...] on filedocumented in this encounter Care Teams Crop And Soil Technician Relationship Specialty Start Date End Date Darek Ronquillo MD [address] [place] [address] Dr RIVAS WILIAN [place] [address] PCP - General Internal Medicine 01/20/21 documented as of this encounter Additional Source Comments The information contained in this document represents components of the legal health record. It is not the complete legal health record.[facility]
--- OUTSIDE RECORDS SUMMARY | 2025-05-21 13:08 | XMS_ITS | Encounter Summary ---
Author Organization [facility] Address [address] [place] [address] Phone Care Team Providers Care Exchange Underwriting Consultant Name Role Phone Darek Ronquillo MD Primary Care Provider Encounter Details Date Type Department Care Team (Late st Contact Info) Description 06/05/2022 Procedure Pass [facility], Ct Scan - [address] [address] Social History Tobacco Use Types Packs/Day Years [...] on filedocumented in this encounter Care Teams Exchange Underwriting Consultant Relationship Specialty Start Date End Date Darek Ronquillo MD [address] [place] [address] Dr RIVAS WILIAN [place] [address] PCP - General Internal Medicine 01/20/21 documented as of this encounter Additional Source Comments The information contained in this document represents components of the legal health record. It is not the complete legal health record.[facility]
--- OUTSIDE RECORDS SUMMARY | 2025-05-21 13:09 | XMS_ITS | Clinical Summary ---
Author Organization [facility] Address [address] [facility] [address] [place] [address] Phone Care Team Providers Care Cmo Name Role Phone Darek Ronquillo MD Primary [...] Active vitamins A,C,E-zinc-cata er (PRESERVISION AREDS) [phone] vgpk-kz-bxol Cap Take 1 capsule by mouth 2 [...] you interested in more education? Not on ra e 11/02/2022 Are you concerned about learning? [...] patient's age to complete this topic IPV VACCINES Aged Out No longer eligi ble based on patient's age to complete this topic MENINGOCOCCAL VACCINES (ACWY) Aged Out No longer eligible based on patient's age to complete this topic MENINGOCOCCAL VACCINES (B) Aged Out N o longer eligible based on patient's age to complete this topic Medical Devices Implanted Type Area Cat Tender Device Identifier Shelf Expiration Date Model / Serial / Lot Cannula Lewis Lacr Without Bx 3ea Bx/3ea - [id number] Implanted:Qty: 1 on 12/02/2020 by Chavo Varner MD, FACS at [facility] [employer] 05/06/2021 [id number] / / [id number] Procedures Procedure Name Priority Date/Time Associated Diagnosis Comments BASIC METABOLIC PANEL (BMP) Routine 12/05/2020 5:51 AM EDT from Last 3 Months or Most Recently Relevant to Health Maintenance Results * (ABNORMAL) Basic metabolic panel (12/05/2020 5:51 AM EDT) SODIUM 144 135 - 145 mmol/L [facility] CHLORIDE 107 100 - 108 mmol/L [facility] POTASSIUM 4.3 3.5 - 5.0 mmol/L [facility] CO2 30 23 - 31.9 mmol/L [facility] BUN 24 8 - 25 mg/dL [facility] CREATININE 0.79 0.6 - 1.5 mg/dL [facility] GLUCOSE 159(H) 70 - 110 mg/dL [facility] CALCIUM 8.9 8.5 - 10.5 mg/dL [facility] EGFR 88 >59 mL/min/1. 73m2 [facility] Comment:Estimated glomerular filtration rate calculated using the CKD-EPI equation. ANION GAP 7 3 - 15 mmol/L [facility] Blood 12/05/2020 5:51 AM EDT 12/05/2020 6:15 AM EDT us Chavo Varner MD, FACS LAB BLOOD BKR [place] [address], [facility] from Last 3 Months or Most [...] Advance Directives For more information, please contact: [phone] (9AM - 5PM Aide/[facility], Saturday-Saturday) Documents on File Type Date Recorded Patient Part Time Flexible Clerk Expl anation Healthcare Proxy 12/07/2020 12:45 PM * Full Code (Latest Code Status on File) Date Activated Date Inactivated Comments 12/02/2020 4:51 PM Question Answer Comments Code Status Confirmed With: Patient Care Teams Cmo Relationship Specialty Start Date End Date Darek Ronquillo MD [address] [place] [address] [place] [address] PCP - General Internal Medicine 01/20/21 Additional Source Comments The information contained in this document represents components of the legal health record. It is not the complete legal health record.[facility]
--- OUTSIDE RECORDS SUMMARY | 2025-05-21 13:09 | XMS_ITS | Clinical Summary ---
Author Organization [facility] [address] [facility] Address [address] [place] [address] Phone Care Team Providers Care Bird Trapper Name Role Phone Darek Ronquillo MD Primary Care Provider [phone] Allergies Active Allergy Reactions Criticality Noted Date [...] Do not crush, chew, or split. Active do-tcx-OF-vit P-bgjwhf-knzzhwm (PreserVision AREDS 2 Plus MV) 200 mcg-15 [...] thoracentesis. 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 He is currently on Bumex. His preference is to follow-up with his red hat linux administrator at [place] and I will make sure to send [...] general and how their size, shape, and change person time affect her level of suspicion for [...] general and how their size, shape, and change person time affect her level of suspicion for [...] on pleural effusion. Ascending aortic aneurysm ([facility] V24) 06/12/20 Overview (08/10/2024): Last Assessment [...] continue to monitor this. Aortic aneurysm ([facility] V24) 12/21/2020 Overview (08/10/2024): Last Assessment & Plan: sinus of Valsalva 4.3 cm, ascending aorta 4.5 cm, transverse aorta at 4.5 cm. Blood pressure is stable. Continue metoprolol. We will continue to monitor yearly. Chronic atrial fibrillation ([facility] V24, [facility]/ C V28) 12/21/2020 Overview (08/10/2024): Last Assessment & Plan: He presents in a rate controlled atrial fibrillation. He will continue metoprolol and diltiazem at current doses. His CVH5OE2-DEBv score is elevated at 5(age, CHF, HTN, [...] regimen as above. Peripheral vascular disease ([facility] V24) 2020 Overview (08/10/2024): Last Assessment & Plan: He has signs and symptoms of intermittent claudication. I am going to update a bilateral lower arterial duplex with ALIZA. I will refer him to Dr. uMller after this. He used to follow with [...] Department Care Team Description 04/05/2025 Lab Requisition [facility] - Main Lab [address] [place] [address] Van Harris PA Benign essential microscopic hematuria 03/31/2025 Lab Requisition [facility] [address] [place] [phone] Van Harris PA Benign essential microscopic hematuria; Urinary tract infection, site not specified 02/18/2025 1:15 PM EDT Office Visit Thoracic Surgery - [address] [place] [phone] Mamadou Doss MD Pulmonary nodule (Primary Dx) from Last 3 Months Immunizations Immunization Administration Dates Next Due Pfizer SARS-CoV-2 COVID-19, mRNA, LNP-S, preservative free 09/03/2020,08/13/2020 Surgical History Surgery Date Site/Laterality Comments CORONARY ARTERY BYPASS GRAFT 2002 PROCEDURE: HISTORICAL CABG OTHER SURGICAL HISTORY 11/15/2023 PROCEDURE: [place] BRONCHOSCOPY W/CPTR-ASST IMAGE-GUIDED NAVIGATION; COMMENT: Kyle Bronch/EBUS with Biopsies Medical History Medical History Date Comments Atrial fibrillation ([facility] V24, [facility] V28) 09/30/2023 DX:Atrial fibrillation (HCC) Anemia 09/30/2023 DX:Anemia Mixed hyperlipidemia 09/30/2023 DX:Mixed hy perlipidemia Peripheral vascular disease ([facility] V24) 09/30/2023 DX:Peripheral vascular disea se ([facility]) COPD (chronic obstructive pu lmonary disease) ([facility] V24, [facility] V28) 09/30/2023 DX:COPD (chronic o bstructive pulmonary disease) ([facility]) Essential (primary) hypertension 09/30/2023 DX:Essential (primary) [...] Thoracic aortic aneurysm wit hout rupture ([facility] V24) DX:Thoracic aortic aneurysm without rupture (HCC) Basal cell carcinoma of skin , unspecified DX:Basal cell carcinoma of s kin, unspecified Vitamin D deficiency DX:Vitamin D deficiency Paroxysmal atrial fibrillati on ([facility] V24, [facility] V28) DX:Paroxysmal atrial fibril lation (HCC) [...] (Lipid Panel) 06/06/2022 Falls Risk Assessment 06/06/2022 Medicare Annual Wellness Visit 06/06/2022 Social [...] hematuria Urinary tract infection, site not specified NON-GYNECOLOGIC CYTOLOGY 03/31/2025 12:00 AM EDT Benign essential microscopic hematuria ANNUAL BMP BLOOD TEST Routine 01/01/2022 from Last 3 Months or Most Recently Relevant to Health Maintenance Results * Culture urine (03/31/2025 11:30 AM EDT) Culture, Urine <10,000 cfu/ml, insignificant count, no further workup. 04/01/2025 2:51 PM EDT [facility]) [facility] Urine Urine specimen obtained by clean catch procedure / Unknown 03/31/2025 11:30 AM EDT 03/31/2025 6:08 PM EDT us [facility] MICROBIOLOGY - GE NERAL ORDERABLES Final Result [facility] [address] [place] [address], [place] [phone] * Non-gynecologic cytology (03/31/2025 12:00 AM EDT) Final Diagnosis Urine, Voided, [id number]: Negative for high grade urothelial carcinoma. 04/26/2025 9:46 AM EDT [facility] at 0946 EDT Specimen A Adequacy Satisfactory for evaluation 04/26/2025 9:46 AM EDT [facility] Clinical Information R31.1 Benign essential microscopic hematuria Urine cytology with reflex UroVysion (AUC/SHGUC) 04/26/2025 9:46 AM EDT [facility] Gross Description A. Urine, Voided, [id number]: Received on ThinPrep slide for Cytology 04/26/2025 9:46 AM EDT [facility] Disclaimer Unless otherwise specified, all tissue is 10% NB formalin fixed and paraffin embedded. Technical pathology services provided by [facility] at [address] [facility] [address], [place] [address] (CLIA #[id number]/Neo Wheatley MD, Chemical Unit Operator) 04/26/2025 9:46 AM EDT [facility] Urine specimen from urethra / Unknown 03/31/2025 04/05/2025 2:30 PM EDT us [facility] CYTOLOGY ORDERABL ES Final Result Performing Organization Address City/[facility]/ZIP Co de Phone Number [facility] [address] [place] [address], [place] [phone] * Annual BMP Blood Test (01/01/2022) Annual BMP Blood Test abstracted Historical Provider HEALTH MAINTENANCE Final Result from Last 3 Months or Most Recently Relevant to Health Maintenance Insurance [employer] [place] [id number] Care Teams Bird Trapper Relationship Specialty Start Date End Date Darek Ronquillo MD [address] [place] [address] Dr [address] WILIAN Hernandez PCP - General 03/01/08
--- OUTSIDE RECORDS SUMMARY | 2025-05-21 13:09 | XMS_ITS | Encounter Summary ---
Author Organization [facility] Address [address] [place] [address] Care Team Providers Care Cracking And Fanning Machine Operator Name Role Phone Darek Ronquillo MD Primary Care Provider [phone] Encounter Details Date Type Department Care Team (Late st Contact Info) Description 03/31/2025 Lab Requisition [facility] - Main Lab [address] [facility] [place] [address] Van Harris PA [address] [facility] [address] [place] [phone] Benign essential microscopic hematuria; Urinary tract infection, [...] no further workup. 04/01/2025 2:51 PM EDT [facility] Urine Urine specimen obtained by clean catch procedure / Unknown 03/31/2025 11:30 AM EDT 03/31/2025 6:08 PM EDT [facility] MICROBIOLOGY - GE NERAL ORDERABLES Final Result [facility] [address] [place] [address], [place] [phone] documented in this encounter Visit Diagnoses Diagnosis Benign essential microscopic hematuria Urinary tract infection, site not specified documented in this encounter Care Teams Cracking And Fanning Machine Operator Relationship Specialty Start Date End Date Darek Ronquillo MD [address] [place] [address] Dr Sethi MS PCP - General 03/01/08 documented as of this encounter
--- OUTSIDE RECORDS SUMMARY | 2025-05-21 13:09 | XMS_ITS | Encounter Summary ---
Author Organization [facility] Address [address] [facility] [address] [place] [phone] Phone Care Team Providers Care Logging Crew Foreman Name Role Phone Pcp, Not Required Primary Care Provider Darek Monson MD Primary Care Provider Encounter Details Date Type Department Care Team (Late st Contact Info) Description 01/11/2021 Ancillary Orders [facility],Outside Imaging [address] [place] [address] System, Provider Not In, [facility] [address] [address] Social History Tobacco Use Types Packs/Day Years [...] on filedocumented in this encounter Care Teams Logging Crew Foreman Relationship Specialty Start Date End Date Pcp, Not Required [address] [place] [address] PCP - General 11/14/20 01/19/21 Darek Ronquillo MD [address] [place] [address] [place] [id number] PCP - General Internal Medicine 01/20/21 documented as of this encounter Additional Source Comments The information contained in this document represents components of the legal health record. It is not the complete legal health record.[facility]
--- OUTSIDE RECORDS SUMMARY | 2025-05-21 13:10 | XMS_ITS | Encounter Summary ---
Author Organization [facility] Address [address] [place] [address] Care Team Providers Care Fund Raiser Name Role Phone Darek Ronquillo MD Primary Care Provider [phone] Encounter Details Date Type Department Care Team (Late st Contact Info) Description 04/05/2025 Lab Requisition [facility] - Main Lab [address] [facility] [place] [address] Van Harris PA [address] [facility] [address] [place] [phone] Benign essential microscopic hematuria Social History Tobacco [...] Procedure Name Priority Date/Time Associated Diagnosis Comments NON-GYNECOLOGIC CYTOLOGY 03/31/2025 12:00 AM EDT Benign essential microscopic hematuria documented in this encounter Results * Non-gynecologic cytology (03/31/2025 12:00 AM EDT) Final Diagnosis Urine, Voided, [id number]: Negative for high grade urothelial carcinoma. 04/26/2025 9:46 AM EDT [facility] at 0946 EDT Specimen A Adequacy Satisfactory for evaluation 04/26/2025 9:46 AM EDT [facility] Clinical Information R31.1 Benign essential microscopic hematuria Urine cytology with reflex UroVysion (AUC/SHGUC) 04/26/2025 9:46 AM EDT [facility] Gross Description A. Urine, Voided, [id number]: Received on ThinPrep slide for Cytology 04/26/2025 9:46 AM EDT [facility] Disclaimer Unless otherwise specified, all tissue is 10% NB formalin fixed and paraffin embedded. Technical pathology services provided by [facility] at [address] [facility] [address], [place] [address] (CLIA #[id number]/Neo Wheatley MD, Cork Tipper) 04/26/2025 9:46 AM EDT [facility] Urine specimen from urethra / Unknown 03/31/2025 04/05/2025 2:30 PM EDT us [facility] CYTOLOGY ORDERABL ES Final Result [facility] [address] [place] [address], documented in this encounter Visit Diagnoses Diagnosis Benign essential microscopic hematuria documented in this encounter Care Teams Fund Raiser Relationship Specialty Start Date End Date Darek Ronquillo MD [address] [place] [address] Dr Navdeep [place] PCP - General 03/01/08 documented as of this encounter
== END 2025-05-21 11:05 | disposition home or self-care (01) ==
PROVIDERS: Emergency Provider Emergency Medicine; PCP Physician Assistant Medical
DX: R04.0 Epistaxis (principal)
CPT/HCPCS: 99282

== ENCOUNTER 2025-05-25 14:20 | Outpatient (AMB) | payer MEDICARE, SELFPAY ==
--- NOTE | 2025-05-25 14:21 | A.OFFPC_ITS ---
Intake Visit Reasons: ED F/U Intake Note: Please call pt on cell phone. Medications/allergies are reconcilled Terrazzo Layer Helper Required: No Allergies hydromorphone (From Dilaudid) Adverse Reaction (Verified 05/25/25 14:21) Confusion Medication List - Last Reconciled 05/25/25 by MARSHA Hair atorvastatin 40 mg PO DAILY@1700 90 days bumetanide 2 mg PO BID@0700,1700 90 days cholecalciferol (vitamin D3) 10 mcg PO DAILY@0700 digoxin 125 mcg PO SUMOTUTHFR dutasteride (Avodart) 0.5 mg PO DAILY@1700 fenofibrate nanocrystallized 145 mg PO DAILY@0700 90 days ferrous sulfate 325 mg PO BID@0700,1700 metolazone 2.5 mg PO MOWEFR PRN metoprolol succinate ER 25 mg PO DAILY@1700 midodrine 2.5 mg PO TID@0700,1200,1700 omeprazole 20 mg PO DAILY@0630 potassium chloride ER 40 mEq (2 x 20 mEq) PO QAM rivaroxaban (Xarelto) 20 mg PO BEDTIME vit C,O-Rg-rpgvd-lutein-zeaxan 250-90-40-1 mg (PreserVision AREDS-2) 1 tab PO BID@1200,1700 Tobacco use date assessed: 04/26/25 Dental Screening Dental Screen Date: 04/26/25 HPI HPI Comments History of Present Illness Details This visit was conducted via Telemedicine by phone. The patient Hector Diaz has consented to the visit to be held via phone. The location of the patient: at home in [place]. The location of the provider: [place] [facility] Chief complaint/reason for visit: ER follow up The names of all persons participating in the telemedicine service and their role in the encounter: Stephenie Da Silva PA-C, Provider, Hector Diaz, Patient, Kierra Diaz, Relevant history, background, and/or results: The patient is an 80-year-old male with anemia, HLD, CAD, CHF, Afib on Xarelto, GERD and low vitamin D for phone visit to follow up on ER. Patient went to the ER on 05/21 for epistaxis. His states he has a bad habit of picking his nose. He removed a scab and the nose began to bleed. She wanted to treat him with Afrin and cotton balls. He was panicking and wanted to go to the ER. He was treated and sent home with his nose packed. They removed the packing a few hours after getting home and he has been doing well. He has a follow up on 07/21/25. Assessment/Plan as follows: Epistaxis- will continue to monitor. Patient to follow up on 07/21/25 or sooner if symptoms persist or worsen. [facility] Medical History (Updated 05/25/25 @ 07:34 by MARSHA Hair) (HFpEF) heart failure with preserved ejection fraction Acute blood loss anemia Acute congestive heart failure Acute upper gastrointestinal bleeding Afib Anemia CAD (coronary artery disease) Chronic atrial fibrillation CKD (chronic kidney disease) COPD (chronic obstructive pulmonary disease) Gastritis Gross hematuria Hyperlipidemia Low blood pressure Metabolic alkalosis Nasal sinus tumor Skin tear of left forearm without complication Urinary frequency Surgical History Hx of CABG Family History Mother No problems noted. Father No problems noted. Social History Household Members: Spouse Housing: House Do you presently have visiting nurse or other home services: Yes Alcohol intake: current Alcohol intake frequency: 0-2 drinks per day Alcohol type: beer Comment: Patient reports 3 beers in the afternoon and 1 mixed drink before bed, bon Patient Tobacco Use Status: Former Tobacco user Tobacco use type: Cigar e-Cigarette/Vaping Use: Former Use Advance Directives Date on File: 02/16/22 service: No Current occupational status: retired Cognitive needs: Yes (walker) Hearing needs: No Vision needs: Yes (rx glasses) Questionnaire Thrive Questionnaire Date Thrive assessed: 04/26/25 ASHLEY-7 AMB Questionnaire ASHLEY-7 Date ASHLEY - 7 assessed: 04/26/25 Source: Developed by Drs. Homer Ash, Leela Torre, Kota Ann and colleagues, with an educational annika from [employer]. Physical exam (Primary Care) Tobacco/Smoking Status: Tobacco use Status Tobacco use date assessed 04/26/25 05/25/25 14:25 Patient Tobacco Use Status Former Tobacco user 05/25/25 14:25 Tobacco use type Cigar 05/25/25 14:25 e-Cigarette/Vaping Use Former Use 05/25/25 14:25 Thrive Assessment: Date of Thrive Assessment Date Thrive assessed 04/26/25 05/25/25 14:25 Telehealth Telehealth Telehealth Platform: Telephone Location of provider rendering services: practice address Location of patient: address on file Patient Identification confirmed using: Name, : Yes Telehealth method: voice only Patient verbally consented to treatment: Yes Patient verbally consented to billing insurance company: Yes Patient informed of any privacy concerns related to visit: Yes Minutes spent on Phone/Video with Pt.: 10 Coding Level of Care Code Established Pt Tele Est Pt Level 2 (70427) Patient Type Established Diagnoses Epistaxis R04.0 Time Spent (min) 20 Comment Time spent quality control inspector heading and documenting Assessment & Plan Assessment & Plan (1) Epistaxis: Code(s): R04.0 - Epistaxis Plan: Resolved. Will monitor. Patient to follow up on 07/21/25 or sooner if symptoms persist or worsen.
== END 2025-05-25 14:49 | disposition home or self-care (01) ==
LOC: HO.HMCHD 14:20
PROVIDERS: PCP Physician Assistant Medical; Visit Provider Physician Assistant Medical
DX: R04.0 Epistaxis (principal)

== ENCOUNTER 2025-06-23 10:11 | Outpatient (AMB) | payer MEDICARE, SELFPAY ==
[2025-06-23 10:25] VITALS: BP 122/68; PULSE 86; TEMP 36.2; O2SAT 99; BMI 22.5
--- NOTE | 2025-06-23 10:25 | MHC.PC.OV ---
Vital Signs 06/23/25 10:25 Height 5 ft 11 in Weight 161 lb BMI 22.5 BP 122/68 Blood Pressure Location Rt brachial Position Sitting Pulse 86 Pulse Source Pulse Oximeter Temp 97.2 F Temp Source Temporal Artery Scan Pulse Oximetry (%) 99 Oxygen Delivery Method Room Air Intake Visit Reasons: Tired More Often Director Multimedia Required: No Accompanied by: Spouse Allergies hydromorphone (From Dilaudid) Adverse Reaction (Verified 06/23/25 10:28) Confusion Medication List - Last Reconciled 06/23/25 by MARSHA Hair atorvastatin 40 mg PO DAILY@1700 90 days bumetanide 2 mg PO BID@0700,1700 90 days cholecalciferol (vitamin D3) 10 mcg PO DAILY@0700 digoxin 125 mcg PO SUMOTUTHFR dutasteride (Avodart) 0.5 mg PO DAILY@1700 fenofibrate nanocrystallized 145 mg PO DAILY@0700 90 days ferrous sulfate 325 mg PO BID@0700,1700 metolazone 2.5 mg PO MOWEFR PRN metoprolol succinate ER 25 mg PO DAILY@1700 midodrine 2.5 mg PO TID@0700,1200,1700 omeprazole 20 mg PO DAILY@0630 potassium chloride ER 40 mEq (2 x 20 mEq) PO QAM rivaroxaban (Xarelto) 20 mg PO BEDTIME vit C,A-Vw-jcdwd-lutein-zeaxan 250-90-40-1 mg (PreserVision AREDS-2) 1 tab PO BID@1200,1700 Tobacco use date assessed: 04/26/25 Dental Screening Dental Screen Date: 06/23/25 HPI HPI Comments History of Present Illness Details History of Present Illness The patient is an 80 year old male with anemia, HLD, CAD, CHF, Afib on Xarelto, GERD and low vitamin D presenting with worsening fatigue and weakness. He reports feeling tired for quite a while, but notes it is getting worse. He describes this as requiring more effort to use his walker and feeling generally weak. He denies wanting to sleep all the time but does report some shortness of breath which has also worsened recently. The patient has a history of anemia, with his last blood work performed in March. He has received blood transfusions in the past from Dr. Shanks, usually one pint at a time, which typically lasts for about six months. He has also experienced a few nosebleeds. An extensive workup to find a source of blood loss, including a capsule endoscopy by a room clerk, has been unrevealing. He is on Xarelto for anticoagulation. He bumped his foot on the way into the appointment. He is followed by a cardiopulmonary technician and had an echocardiogram within the last year. He has an upcoming appointment with his cardiopulmonary technician in July. He has a follow up with me on 07/21/25 Medical History: - Anemia, requiring intermittent blood transfusions - History of epistaxis - Negative gastrointestinal workup for source of bleeding, including capsule endoscopy - History requiring anticoagulation Health Maintenance - The patient has a follow-up appointment with his cardiopulmonary technician in July. - His last echocardiogram was completed within the past year. Social History - Functional Status: The patient uses a walker and reports increased effort with ambulation. Results - Last blood work to check for anemia was in March. - Echocardiogram was reportedly performed within the last year. - Past gastrointestinal workup, including capsule endoscopy, was negative for a source of bleeding. Patient was informed and verbally consented to the use of an ambient scribe for clinic note documentation during this visit. COUNT INCLUDES [facility] Medical History CKD (chronic kidney disease) Urinary frequency Skin tear of left forearm without complication Metabolic alkalosis Gastritis Gross hematuria Chronic atrial fibrillation (HFpEF) heart failure with preserved ejection fraction Low blood pressure Anemia Acute congestive heart failure Acute upper gastrointestinal bleeding Acute blood loss anemia COPD (chronic obstructive pulmonary disease) Hyperlipidemia Afib Nasal sinus tumor CAD (coronary artery disease) Surgical History Hx of CABG Family History Mother No problems noted. Father No problems noted. Social History Household Members: Spouse Housing: House Do you presently have visiting nurse or other home services: Yes Alcohol intake: current Alcohol intake frequency: 0-2 drinks per day Alcohol type: beer Comment: Patient reports 3 beers in the afternoon and 1 mixed drink before bed, bon Patient Tobacco Use Status: Former Tobacco user Tobacco use type: Cigar e-Cigarette/Vaping Use: Former Use Advance Directives Date on File: 02/16/22 service: No Current occupational status: retired Cognitive needs: Yes (walker) Hearing needs: No Vision needs: Yes (rx glasses) Questionnaire PHQ-9 Over the last 2 weeks, how often have you been bothered by any of the following problems? 1. Little interest or pleasure in doing things: not at all 2. Feeling down, depressed, or hopeless: not at all 3. Trouble falling or staying asleep, or sleeping too much: not at all 4. Feeling tired or having little energy: not at all 5. Poor appetite or overeating: not at all 6. Feeling bad about yourself - or that you are a failure or have let yourself or your family down: not at all 7. Trouble concentrating on things, such as reading the newspaper or watching television: not at all 8. Moving or speaking so slowly that other people could have noticed. Or the opposite - being so fidgety or restless that you have been moving around a lot more than usual: not at all 9. Thoughts that you would be better off or of hurting yourself in some way: not at all Total score: 0 Depression Screening Interpretation: Negative Depression Screening Done: Yes Source: Developed by Drs. Homer Ash, Leela Torre, Kota Ann and colleagues, with an educational annika from [employer]. Thrive Questionnaire Date Thrive assessed: 06/23/25 I am a: Patient Within the past 12 months, did the food you bought not last and you didn't have the money to get more?: Never true Within the past 12 months, did you worry whether your food would run out before you got money to buy more?: Never true Do you have trouble paying for medicines?: No Do you have trouble getting transportation to medical appointments?: No Do you have trouble paying your heating and electricity bill?: No Do you have trouble taking care of your child, family member or friend?: No Do you have trouble with day-to-day activities such as bathing, preparing meals, shopping, managing finances, etc.?: No Are you currently unemployed and looking for a job?: No Are you interested in more education?: No THRIVE Score: 0 AUDIT C Alcohol Use Questionnaire (AUDIT-C) 1. How often do you have a drink containing alcohol?: Monthly or less 2. How many drinks containing alcohol do you have on a typical day when you are drinking?: 1 or 2 3. How often do you have six or more drinks on one occasion?: Less than monthly Total Score: 2 ASHLEY-7 AMB Questionnaire ASHLEY-7 Date ASHLEY - 7 assessed: 06/23/25 Feeling nervous, anxious, or on edge: 0 = Not at all Not being able to stop or control worryin = Not at all Worrying too much about different things: 0 = Not at all Trouble relaxin = Not at all Being so restless that it is hard to sit still: 0 = Not at all Becoming easily annoyed or irritable: 0 = Not at all Feeling afraid as if something awful might happen: 0 = Not at all Total ASHLEY-7 score (0-4 normal; 5-9 mild; 10-14 moderate; 15-21 severe): 0 Source: Developed by Drs. Homer Ash, Leela Torre, Kota Ann and colleagues, with an educational annika from [employer]. Review of Systems Narrative Review of Systems - Constitutional: Reports worsening fatigue and weakness. - Respiratory: Reports some shortness of breath, which has increased. - HEENT: Reports history of epistaxis. Physical exam (Primary Care) Vital Signs: Last Vital Signs Temp 97.2 F 06/23/25 10:25 Pulse 86 06/23/25 10:25 BP 122/68 06/23/25 10:25 Pulse Ox 99 06/23/25 10:25 Oxygen Delivery Method Room Air 06/23/25 10:25 BMI result Body Mass Index 22.5 GENERAL Well developed, frail, in no apparent distress, in wheel chair HEENT Head-Normocephalic Neck- Supple, No lymphadenopathy, thyroid WNL RESPIRATORY Normal I:E, Clear to auscultation CARDIOVASCULAR Regular, rate and rhythm, No murmurs or rubs GASTROINTESTINAL Soft, nontender, normal bowel sounds, no masses NEUROLOGICAL Gait normal PSYCHIATRIC Oriented to person, place and time Mood and affect WNL Appearance WNL Speech WNL Thought processes WNL Tobacco/Smoking Status: Tobacco use Status Tobacco use date assessed 04/26/25 06/23/25 10:31 Patient Tobacco Use Status Former Tobacco user 06/23/25 10:31 Tobacco use type Cigar 06/23/25 10:31 e-Cigarette/Vaping Use Former Use 06/23/25 10:31 PHQ-9: PHQ-9 Score PHQ-9: Total score 0 06/23/25 10:31 Depression Screening Interpretation: Negative Thrive Assessment: Date of Thrive Assessment Date Thrive assessed 06/23/25 06/23/25 10:31 Coding Level of Care Code Established Pt Est Pt Level 3 (01874) Established Pt Add On Problem Visit Only Patient Type Established Diagnoses Fatigue R53.83 Anemia, unspecified type D64.9 Anemia type: unspecified type Shortness of breath R06.02 Time Spent (min) 25 Comment Time spent on chart review, H&P, Patient education and orders. Assessment & Plan Assessment & Plan (1) Fatigue: Comment: BP today was 122/68 Code(s): R53.83 - Other fatigue Category: Medical Plan: Will get labs to evaluate. Patient to follow up as needed if symptoms persist or worsen. (2) Anemia: Code(s): D64.9 - Anemia, unspecified Category: Medical Qualifiers: Anemia type: unspecified type Qualified Code(s): D64.9 - Anemia, unspecified Plan: Will get CBC and iron studies. Patient to follow up as needed if symptoms persist or worsen. (3) Shortness of breath: Code(s): R06.02 - Shortness of breath Plan: Patient to follow up with Cardiology on 07/27/25 Plan Plan Patient was informed and verbally consented to the use of an ambient scribe for clinic note documentation during this visit. 1. Anemia The patient's symptoms of worsening fatigue, weakness, and dyspnea are likely due to worsening anemia, given his history and recent nosebleeds. Updated blood work will be drawn today, as the last check was in March. Results are expected tomorrow and will be shared with Dr. Martin to determine the need for a blood transfusion. 2. Dyspnea The patient's dyspnea and finding of minimal fluid on lung auscultation warrant cardiac evaluation. Will review the date of his last echocardiogram, which was within the last year, and order an updated study if he is overdue before his cardiology appointment on July 27. He will keep his scheduled follow-up appointment on [place] 14th. Discussion Notes I discussed with the patient and his that his worsening fatigue, weakness, and shortness of breath are most likely related to his chronic anemia. I explained the plan to obtain updated blood work today, with results expected tomorrow. We agreed to share these results with his specialist, Dr. Martin, to evaluate for the need for a blood transfusion. I also mentioned that I would review his cardiac history and determine if an updated echocardiogram is needed before his cardiology appointment in July. We confirmed his upcoming appointments and the plan for follow-up. Patient Instructions - Please go to the lab here to have your blood drawn today. - We will call you tomorrow with the results. - We will share your lab results with Dr. Martin's office. - Please keep your scheduled follow-up appointment with our office on July 21. - Please keep your appointment with the cardiopulmonary technician on July 27. Orders: Orders Complete Blood Count no Diff Today D64.9 - Anemia, unspecified, R53.83 - Other fatigue TSH reflex Free T4 Today R53.83 - Other fatigue Ferritin Today D64.9 - Anemia, unspecified IRON PROFILE Today D64.9 - Anemia, unspecified Comprehensive Met. Panel Today R53.83 - Other fatigue
--- OUTSIDE RECORDS SUMMARY | 2025-06-23 12:29 | XMS_ITS | Encounter Summary ---
Author Organization [facility] Address [address] [place] [phone] Phone Care Team Providers Care Manager Document Control Name Role Phone Darek Ronquillo MD Primary Care Provider Encounter Details Date Type Department Care Team (Late st Contact Info) Description 04/05/2021 Procedure Pass [facility] - [facility] Main [place] [address] [place] [address] Social History Tobacco Use Types Packs/Day Years [...] on filedocumented in this encounter Care Teams Manager Document Control Relationship Specialty Start Date End Date Darek Ronquillo MD [address] [place] [address] Dr RIVAS WILIAN Hernandez [id number] PCP - General Internal Medicine 01/20/21 documented as of this encounter Additional Source Comments The information contained in this document represents components of the legal health record. It is not the complete legal health record.[facility]
--- OUTSIDE RECORDS SUMMARY | 2025-06-23 12:29 | XMS_ITS | Encounter Summary ---
Author Organization [facility] Address [address] [place] [address] Phone Care Team Providers Care Fast Brim Pouncer Name Role Phone Darek Ronquillo MD Primary Care Provider Encounter Details Date Type Department Care Team (Late st Contact Info) Description 04/05/2021 Procedure Pass [facility] - [facility] Main [place] [address] [place] [address] Social History Tobacco Use Types Packs/Day Years [...] on filedocumented in this encounter Care Teams Fast Brim Pouncer Relationship Specialty Start Date End Date Darek Ronquillo MD [address] [place] [address] Dr RIVAS WILIAN Hernandez [id number] PCP - General Internal Medicine 01/20/21 documented as of this encounter Additional Source Comments The information contained in this document represents components of the legal health record. It is not the complete legal health record.[facility]
--- OUTSIDE RECORDS SUMMARY | 2025-06-23 12:29 | XMS_ITS | Encounter Summary ---
Author Organization [facility] Address [address] [place] [phone] Phone Care Team Providers Care Grey Iron Molder Name Role Phone Pcp, Not Required Primary Care Provider Darek Monson MD Primary Care Provider Encounter Details Date Type Department Care Team (Late st Contact Info) Description 11/14/2020 Procedure Pass [facility] [address] [place] [address] Social History Tobacco Use Types Packs/Day Years [...] on filedocumented in this encounter Care Teams Grey Iron Molder Relationship Specialty Start Date End Date Pcp, Not Required PCP - General 11/14/20 01/19/21 Darek Ronquillo MD [address] [place] [address] Dr RIVAS WILIAN Hernandez [id number] PCP - General Internal Medicine 01/20/21 documented as of this encounter Additional Source Comments The information contained in this document represents components of the legal health record. It is not the complete legal health record.[facility]
--- OUTSIDE RECORDS SUMMARY | 2025-06-23 12:29 | XMS_ITS | Encounter Summary ---
Author Organization [facility] Address [address] [facility] [address] [place] [address] Phone Care Team Providers Care Heel Gummer Name Role Phone Unknown, Unknown Primary Care Provider Gurmeet gutierrez Pcp, Not Required Primary Care Provider Darek Monson MD Primary Care Provider Encounter Details Date Type Department Care Team (Late st Contact Info) Description 09/26/2020 Procedure Pass [facility] - [facility] [address] [place] [address] Social History Tobacco Use Types Packs/Day Years [...] on filedocumented in this encounter Care Teams Heel Gummer Relationship Specialty Start Date End Date Unknown, Unknown, PCP - General 08/30/20 11/13/20 Pcp, Not Required PCP - General 11/14/20 01/19/21 Darek Ronquillo MD [address] [place] [address] [place] [address] PCP - General Internal Medicine 01/20/21 documented as of this encounter Additional Source Comments The information contained in this document represents components of the legal health record. It is not the complete legal health record.[facility]
--- OUTSIDE RECORDS SUMMARY | 2025-06-23 12:29 | XMS_ITS | Encounter Summary ---
Author Organization [facility] Address [address] [place] [address] Phone Care Team Providers Care Delivery Tech Name Role Phone Pcp, Not Required Primary Care Provider Darek Monson MD Primary Care Provider Encounter Details Date Type Department Care Team (Late st Contact Info) Description 12/05/2020 Procedure Pass [facility] - [facility] [place] [address] [place] [address] Social History Tobacco Use Types Packs/Day Years [...] on filedocumented in this encounter Care Teams Delivery Tech Relationship Specialty Start Date End Date Pcp, Not Required PCP - General 11/14/20 01/19/21 Darek Ronquillo MD [address] [place] [address] Dr RIVAS [place] [id number] PCP - General Internal Medicine 01/20/21 documented as of this encounter Additional Source Comments The information contained in this document represents components of the legal health record. It is not the complete legal health record.[facility]
--- OUTSIDE RECORDS SUMMARY | 2025-06-23 12:30 | XMS_ITS | Clinical Summary ---
Author Organization [facility] [address] [facility] Address [address] [place] [address] Phone Care Team Providers Care Convention Services Director Name Role Phone Darek Ronquillo MD Primary Care Provider [phone] Allergies Active Allergy Reactions Criticality Noted Date [...] Do not crush, chew, or split. Active cq-dsq-KA-vit N-kvfhlg-sohjuch (PreserVision AREDS 2 Plus MV) 200 mcg-15 [...] thoracentesis. Alternatively he could follow-up with his command center officer and see if any adjustments in his medications would simply resolve the problem. He is currently on Bumex. His preference is to follow-up with his command center officer at [place] and I will make sure to send [...] and how their size, shape, and change management administrator time affect her level of suspicion for [...] and how their size, shape, and change management administrator time affect her level of suspicion for [...] metoprolol and diltiazem at current doses. His HPS7DC6-CVWi score is elevated at 5(age, CHF, HTN, [...] Department Care Team Description 04/05/2025 Lab Requisition [facility] Main Lab [address] [facility] [place] [address] Van Harris PA Benign essential microscopic hematuria 03/31/2025 Lab Requisition [facility] Main Lab [address] [facility] [place] [address] Van Harris PA Benign essential microscopic hematuria; Urinary tract infection, site not specified from Last 3 Months Immunizations Immunization Administration Dates Next Due Pfizer SARS-CoV-2 COVID-19, mRNA, LNP-S, preservative free 09/03/2020,08/13/2020 Surgical History Surgery Date Site/Laterality Comments CORONARY ARTERY BYPASS GRAFT 2002 PROCEDURE: HISTORICAL CABG OTHER SURGICAL HISTORY 11/15/2023 PROCEDURE: CA BRONCHOSCOPY W/CPTR-ASST IMAGE-GUIDED NAVIGATION; COMMENT: Kyle Bronch/EBUS with Biopsies Medical History Medical History Date Comments Atrial fibrillation ([facility] V24, [facility] V28) 09/30/2023 DX:Atrial fibrillation (HCC) Anemia 09/30/2023 DX:Anemia Mixed hyperlipidemia 09/30/2023 DX:Mixed hy perlipidemia Peripheral vascular disease ([facility] V24) 09/30/2023 DX:Peripheral vascular disea se ([facility]) COPD (chronic obstructive pu lmonary disease) ([facility] V24, [facility] V28) 09/30/2023 DX:COPD (chronic [...] polyps Thoracic aortic aneurysm wit hout rupture ([facility] V24) DX:Thoracic aortic aneurysm without rupture (HCC) Basal cell carcinoma of skin , unspecified DX:Basal cell carcinoma of s kin, unspecified Vitamin D deficiency DX:Vitamin D deficiency Paroxysmal atrial fibrillati on ([facility] V24, [facility] V28) DX:Paroxysmal atrial fibril lation (HCC) Encounter for screening for malignant neoplasm of rectum DX:Encounter for screening f or malignant neoplasm of rectum Personal history of nicotine dependence DX:Personal history of nicot ine dependence Chronic diastolic (congestiv e) heart failure ([facility] V24, [facility] V28) DX:Chronic diastoli c (congestive) heart failure (HCC) Pulmonary emphysema ([facility] V24, [facility] V28) DX:Pulmonary emphysema (HCC) Family History Medical [...] 01/01/2022 Depression Screening 07/08/2024 COVID-19 Vaccine ( - season) 2025 05/03/2023, 04/11/2021, 09/03/2020, Additional history [...] no further workup. 04/01/2025 2:51 PM EDT [facility] Urine Urine specimen obtained by clean catch procedure / Unknown 03/31/2025 11:30 AM EDT 03/31/2025 6:08 PM EDT us [facility] MICROBIOLOGY - GE NERAL ORDERABLES Final Result [facility] [address] [place] [address], [place] [phone] * Non-gynecologic cytology (03/31/2025 12:00 AM EDT) Final Diagnosis Urine, Voided, [id number]: Negative for high grade urothelial carcinoma. 04/26/2025 9:46 AM EDT [facility] at 0946 EDT Specimen A Adequacy Satisfactory for evaluation 04/26/2025 9:46 AM EDT [facility] Clinical Information R31.1 Benign essential microscopic hematuria Urine cytology with reflex UroVysion (AUC/SHGUC) 04/26/2025 9:46 AM EDT [facility] Gross Description A. Urine, Voided, [id number]: Received on ThinPrep slide for Cytology 04/26/2025 9:46 AM EDT [facility] Disclaimer Unless otherwise specified, all tissue is 10% NB formalin fixed and paraffin embedded. Technical pathology services provided by [facility] Urology at [address], [place] [address] (CLIA #[id number]/Neo Wheatley MD, Form Press Operator) 04/26/2025 9:46 AM T [facility] Urine specimen from urethra / Unknown 03/31/2025 04/05/2025 2:30 PM EDT [facility] CYTOLOGY ORDERABL ES Final Result [facility] [address] [place] [address], [place] [phone] * Annual BMP Blood Test (01/01/2022) Annual BMP Blood Test abstracted Historical Provider HEALTH MAINTENANCE Final Result from Last 3 Months or Most Recently Relevant to Health [place] [phone] [employer] Care Teams Convention Services Director Relationship Specialty Start Date End Date Darek Ronquillo MD [address] [place] [address] Dr Navdeep [place] PCP - General 03/01/08
--- OUTSIDE RECORDS SUMMARY | 2025-06-23 12:30 | XMS_ITS | Encounter Summary ---
Author Organization [facility] Address [address] [place] [address] Care Team Providers Care Parachute Line Tier Name Role Phone Darek Ronquillo MD Primary Care Provider [phone] Encounter Details Date Type Department Care Team (Late st Contact Info) Description 04/05/2025 Lab Requisition [facility] - Main Lab [address] [facility] [place] [address] Van Harris PA [address] [facility] [address] [place] [id number] Benign essential microscopic hematuria Social History Tobacco [...] 12:00 AM EDT) Final Diagnosis Urine, Voided, [id number]: Negative for high grade urothelial carcinoma. 04/26/2025 9:46 AM EDT [facility] at 0946 EDT Specimen A Adequacy Satisfactory for evaluation 04/26/2025 9:46 AM EDT [facility] Clinical Information R31.1 Benign essential microscopic hematuria Urine cytology with reflex UroVysion (AUC/SHGUC) 04/26/2025 9:46 AM EDT [facility] Gross Description A. Urine, Voided, [id number]: Received on ThinPrep slide for Cytology 04/26/2025 9:46 AM EDT [facility] Disclaimer Unless otherwise specified, all tissue is 10% NB formalin fixed and paraffin embedded. Technical pathology services provided by [facility] at [address] [facility] [address], [place] [address] (CLIA #[id number]/Neo Wheatley MD, Curve Cleaner) 04/26/2025 9:46 AM EDT [facility] Urine specimen from urethra / Unknown 03/31/2025 04/05/2025 2:30 PM EDT us [facility] CYTOLOGY ORDERABL ES Final Result [facility] [address] [place] [address], documented in this encounter Visit Diagnoses Diagnosis Benign essential microscopic hematuria documented in this encounter Care Teams Parachute Line Tier Relationship Specialty Start Date End Date Darek Ronquillo MD [address] [place] [address] Dr Navdeep [place] PCP - General 03/01/08 documented as of this encounter
--- OUTSIDE RECORDS SUMMARY | 2025-06-23 12:30 | XMS_ITS | Patient Health Record ---
Author Organization [facility] Address [address] [facility] [place] [address] Care Team Providers Care Form Designer Name Role Phone Christiano, Kartik Primary Care Provider [phone] Ariadne Long [phone] Allergies Allergen (clinical drug ingredient) Drug/Non Drug Allergy documented on EMR Reaction Allergy Type Onset Date Status hydromorphone Dilaudid hallucinations Drug Allergy Active tramadol traMADol HCl hallucinations Drug Allergy Active Reason For Referral No Information Medications Medication SIG (Take, Route, Frequency, Duration) Notes Start Date End Date Status Dutasteride 0.5 MG 1 capsule Orally Onc e a day; Duration: 30 day(s) Active Potassium 99 MG 1 tablet Orally Once a day Active Vitamin D3 Active PreserVision AREDS 2 - as directed Orall y twice a day Active Bumetanide 2 MG 1 tablet Orally twic e a day; Duration: 30 days Active Digoxin 125 MCG 1 tablet Orally Active Atorvastatin Calcium 40 MG 1 tablet Oral ly Once a day; Duration: 30 day(s) Active Acetaminophen 325 MG 1 tablet as needed Orally every 4 hrs Active Amiodarone HCl 200 MG 1 tablet Orally On ce a day; Duration: 30 day(s) Not-Taking Xarelto 20 MG 1 tablet with food Orally Once a day; Duration: 30 day(s) Active Omeprazole 20 MG 1 capsule 30 minutes before morning meal Orally Once a day; Duration: 30 day(s) Active Midodrine HCl 2.5 MG 1 tablet Orally 3 times a day; Duration: 30 days Active Metoprolol Succinate ER 25 MG 1 tablet Orally Once a day; Duration: 30 day(s) Active Ferrous Sulfate 325 (65 Fe) MG 1 tablet Orally twice a day; Duration: 30 days Active Fenofibrate 145 MG 1 tablet Orally Once a day; Duration: 30 day(s) Active Immunizations Vaccine Route Administration Date Status Comme nts Influenza Unknown 03/08/2024 Administered Influenza Unknown 04/07/2025 Administered Social History Tobacco Use: Social History [...] atherosclerosis of arteries of lower limbs (disorder) (00133216491363285 ) Atherosclerosis of artery of both lower extremities (I70.203) Active confirmed Vital Signs Blood pressure diastolic 65 mm Hg 05/04/2025 Height 5 ft 11 in in 05/04/2025 Blood pressure systolic 120 mm Hg 05/04/2025 Weight 175 lbs 05/04/2025 BMI 24.4 kg/m2 05/04/2025 Encounters Encounter Location Date Provider Diagnosis [address] [address] 07/21/2024 Ariadne Perica Atherosclerosis of artery of both lower extremities I70.[address] [address] 10/21/2024 Ariadne Perica Atherosclerosis of artery of both lower extremities I70.[address] [address] 01/26/2025 Ariadne Perica Atherosclerosis of artery of both lower extremities I70.[address] [address] 05/04/2025 Ariadne Long Atherosclerosis of artery of both lower extremities I70.203 Assessments Encounter Date Diagnosis (ICD Code) Assessment Notes Treatment Notes Treatment Clinical Notes Section Notes 07/21/2024 Atherosclerosis of artery of both lower extremities (ICD-10 - I70.203) 10/21/2024 Atherosclerosis of artery of both lower extremities (ICD-10 - I70.203) 01/26/2025 Atherosclerosis of artery of both lower extremities (ICD-10 - I70.203) 05/04/2025 Atherosclerosis of artery of both lower extremities (ICD-10 - I70.203) Plan Of Treatment Next Appt Details Provider Name:Ariadne Ordoñez Brittany ordoñez, 07/07/2025 11:45:00 AM, [address] [place] [address], [address], Provider Name:Ariadne Ordoñez Brittany ordoñez, 09/08/2025 11:30:00 AM, [address] [place] [address], [phone], Insurance Providers Payer Name Payer Address Payer Phone Subscriber Number Group Number Insured Name Patient Relationship to Insured Coverage Start Date Coverage End Date [facility] [address] [place] [address] [id number] Hector Diaz Self - patient is the [...]
--- OUTSIDE RECORDS SUMMARY | 2025-06-23 12:30 | XMS_ITS | Encounter Summary ---
Author Organization [facility] Address [address] [place] [address] Phone Care Team Providers Care Tool Repairer Bench Name Role Phone Darek Ronquillo MD Primary Care Provider Encounter Details Date Type Department Care Team (Late st Contact Info) Description 06/05/2022 Procedure Pass [facility], Ct Scan - [address] [address] Social History Tobacco Use Types Packs/Day Years [...] on filedocumented in this encounter Care Teams Tool Repairer Bench Relationship Specialty Start Date End Date Darek Ronquillo MD [address] [place] [address] Dr RIVAS WIL[place] [address] PCP - General Internal Medicine 01/20/21 documented as of this encounter Additional Source Comments The information contained in this document represents components of the legal health record. It is not the complete legal health record.[facility]
--- OUTSIDE RECORDS SUMMARY | 2025-06-23 12:30 | XMS_ITS | Patient Health Record ---
Author Organization [facility] Address [address] [place] [address] Care Team Providers Care Recreational Resort Manager Name Role Phone Shima (RETIRED) Darek REHMAN Primary Care Provide Soren Mosqueda Jr Unavailable [phone] Allergies No Known Allergies Reason For Referral No Information Medications Medication SIG (Take, Route, Frequency, Duration) Notes Start Date End Date Status Midodrine HCl 2.5 MG Tablet Oral; Duration: 90 Active Metoprolol Succinate ER 25 MG Tablet Extended Release 24 Hour TAKE 1 TABLET BY MOUTH EVERY EVENING Oral; Duration: 90 Active Dutasteride 0.5 MG Capsule Oral; Duration: 90 Active Digoxin 125 MCG Tablet Oral; Duration: 90 Active Bumetanide 2 MG Tablet Oral; Duration: 90 Active Ferrous Sulfate 325 (65 Fe) MG Tablet 1 tablet Orally Three times a Week; Duration: 30 day(s) Active Vitamin D-3 25 MCG (1000 UT) Capsule 1 capsule Orally Once a day; Duration: 30 day(s) Active Fenofibrate 145 MG Tablet Oral; Duration: 90 Active Atorvastatin Calcium 40 MG Tablet Oral; Duration: 90 Active Xarelto 20 MG Tablet TAKE 1 TABLET BY MO UTH AT BEDTIME Oral; Duration: 90 Active Potassium Chloride ER 20 MEQ Tablet Extended Release Oral; Duration: 90 Active Omeprazole 20 MG Capsule Delayed Release TAKE 1 CAPSULE BY MOUTH EVERY DAY Oral; Duration: 90 Active Immunizations Vaccine Route Administration Date Status Comme nts Influenza Unknown 03/31/2024 Administered Social History Tobacco Use: Social History Observation Description Date Details (start date - stop date) Never Smoker NA - NA Social History Drugs/Alcohol: Social Info Question Answer Notes Alcohol Screen Did you have a drink containing alcohol in the past year? Yes How often did you have a drink containing alcohol in the past year? 4 or more times a week (4 points) How many drinks did you have on a typical day when you were drinking in the past year? 1 or 2 drinks (0 point) How often did you have 6 or more drinks on one occasion in the past year? Never (0 point) Points 4 Interpretation Positive Tobacco Use: Social Info Question Answer Notes Tobacco Use/Smoking Patient is a nonsmoker Additional Details Category Social Info Options Details Miscellaneous: Marital status: Occupation: retired Problems Problem Type SNOMED Code ICD Code Onset Dates Problem Status W/U Status Risk Notes Problem Abnormal feces (694080068) Heme positive stool (R19.5) Active confirmed Problem Gastritis (4877625) Gastritis (K29.70) Active confirmed Problem Anemia (150790299) Anemia, unspecified type (D64.9) Active confirmed Vital Signs Temperature 97.5 degrees Fahrenheit 08/10/2024 Blood pressure diastolic 00 mm Hg 08/10/2024 Height 5 ft 11 in in 08/10/2024 Blood pressure systolic 000 mm Hg 08/10/2024 Weight 180 lbs 08/10/2024 BMI 25.10 kg/m2 08/10/2024 Procedures Procedure Date Ordered Date Performed Result Body Sit e VIDEO CAPSULE ENDOSCOPY 10/06/2024 N/A Encounters Encounter Location Date Provider Diagnosis [facility] [address] [place] [phone] 08/10/2024 Soren Boothe Jr Anemia, unspecified type D64.9 [facility] [address] [place] [phone] 08/04/2024 Soren Boothe Jr [facility] [address] [place] [phone] 10/06/2024 Soren Boothe Jr Anemia, unspecified type D64.9 and Heme positive stool R19.5 [facility] [address] [place] [phone] 11/05/2024 Soren Boothe Jr [facility] [address] [place] [phone] 01/18/2025 Soren Boothe Jr Assessments Encounter Date [...] Insured Coverage Start Date Coverage End Date [facility] [address] [place] [address] [id number] STEFFEN ANTHONY Self - patient is the insured Medical (General) History Medical History History ICD Code Hypotension 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
--- OUTSIDE RECORDS SUMMARY | 2025-06-23 12:30 | XMS_ITS | Encounter Summary ---
Author Organization [facility] Address [address] [facility] [address] [place] [address] Phone Care Team Providers Care Benefit Authorizer Name Role Phone Pcp, Not Required Primary Care Provider Darek Monson MD Primary Care Provider Encounter Details Date Type Department Care Team (Late st Contact Info) Description 01/11/2021 Ancillary Orders [facility],Outside Imaging [address] [place] [address] System, Provider Not In, [facility] [address] [address] Social History Tobacco Use Types Packs/Day Years [...] on filedocumented in this encounter Care Teams Benefit Authorizer Relationship Specialty Start Date End Date Pcp, Not Required PCP - General 11/14/20 01/19/21 Darek Ronquillo MD [address] [place] [address] [place] [address] PCP - General Internal Medicine 01/20/21 documented as of this encounter Additional Source Comments The information contained in this document represents components of the legal health record. It is not the complete legal health record.[facility]
--- OUTSIDE RECORDS SUMMARY | 2025-06-23 12:30 | XMS_ITS | Clinical Summary ---
Author Organization [facility] Address [address] [facility] [address] [place] [address] Phone Care Team Providers Care Sql Report Analyst Name Role Phone Darek Ronquillo MD [...] Active vitamins A,C,E-zinc-cata er (PRESERVISION AREDS) 14,320-226-200 rgog-ky-trxr Cap Take 1 capsule by mouth 2 [...] this topic Medical Devices Implanted Type Area Sweatband Drummer Device Identifier Shelf Expiration Date Model / Serial / Lot Cannula Lewis Lacr Without Bx 3ea Bx/3ea - [id number] Implanted:Qty: 1 on 12/02/2020 by Chavo Varner MD, FACS at [facility] [employer] 05/06/2021 [id number] / / [id number] Procedures Procedure Name Priority Date/Time Associated Diagnosis Comments BASIC METABOLIC PANEL (BMP) Routine 12/05/2020 5:51 AM EDT from Last 3 Months or Most Recently Relevant to Health Maintenance Results * (ABNORMAL) Basic metabolic panel (12/05/2020 5:51 AM EDT) SODIUM 144 135 - 145 mmol/L [facility] CHLORIDE 107 100 - 108 mmol/L [facility] POTASSIUM 4.3 3.5 - 5.0 mmol/L [facility] CO2 30 23 - 31.9 mmol/L [facility] BUN 24 8 - 25 mg/dL [facility] CREATININE 0.79 0.6 - 1.5 mg/dL [facility] GLUCOSE 159(H) 70 - 110 mg/dL [facility] CALCIUM 8.9 8.5 - 10.5 mg/dL [facility] EGFR 88 >59 mL/min/1. 73m2 [facility] Comment:Estimated glomerular filtration rate calculated using the CKD-EPI equation. ANION GAP 7 3 - 15 mmol/L [facility] Blood 12/05/2020 5:51 AM EDT 12/05/2020 6:15 AM EDT Chavo Varner MD, FACS LAB BLOOD [place]KR [place] [address], [facility] from Last 3 Months or Most Recently [...] Advance Directives For more information, please contact: [phone] (9AM - 5PM [facility], Saturday-Saturday) Documents on File Type Date Recorded Patient Fuse Coiler Expl anation Healthcare Proxy 12/07/2020 12:45 PM * Full Code (Latest Code Status on File) Date Activated Date Inactivated Comments 12/02/2020 4:51 PM Question Answer Comments Code Status Confirmed With: Patient Care Teams Sql Report Analyst Relationship Specialty Start Date End Date Darek Ronquillo MD [address] [place] [address] [place] [address] PCP - General Internal Medicine 01/20/21 Additional Source Comments The information contained in this document represents components of the legal health record. It is not the complete legal health record.[facility]
--- OUTSIDE RECORDS SUMMARY | 2025-06-23 12:30 | XMS_ITS | Encounter Summary ---
Author Organization [facility] Address [address] [place] [address] Phone Care Team Providers Care Sewer Digger Name Role Phone Darek Ronquillo MD Primary Care Provider Encounter Details Date Type Department Care Team (Late st Contact Info) Description 06/05/2022 Procedure Pass [facility], Ct Scan - [address] [address] Social History Tobacco Use Types Packs/Day Years [...] on filedocumented in this encounter Care Teams Sewer Digger Relationship Specialty Start Date End Date Darek Ronquillo MD [address] [place] [address] Dr RIVAS WILIAN Hernandez [address] PCP - General Internal Medicine 01/20/21 documented as of this encounter Additional Source Comments The information contained in this document represents components of the legal health record. It is not the complete legal health record.[facility]
--- OUTSIDE RECORDS SUMMARY | 2025-06-23 12:30 | XMS_ITS | Encounter Summary ---
Author Organization [facility] Address [address] [place] [address] Care Team Providers Care Dope Mixer Name Role Phone Darek Ronquillo MD Primary Care Provider [phone] Encounter Details Date Type Department Care Team (Late st Contact Info) Description 03/31/2025 Lab Requisition [facility] - Main Lab [address] [facility] [place] [address] Van Harris PA [address] [facility] [address] [place] [phone] Benign essential microscopic hematuria; Urinary tract infection, [...] no further workup. 04/01/2025 2:51 PM EDT [facility] Urine Urine specimen obtained by clean catch procedure / Unknown 03/31/2025 11:30 AM EDT 03/31/2025 6:08 PM EDT [facility] MICROBIOLOGY - GE NERAL ORDERABLES Final Result [facility] [address] [place] [address], [place] [phone] documented in this encounter Visit Diagnoses Diagnosis Benign essential microscopic hematuria Urinary tract infection, site not specified documented in this encounter Care Teams Dope Mixer Relationship Specialty Start Date End Date Darek Ronquillo MD [address] [place] [address] Dr Sethi [place] PCP - General 03/01/08 documented as of this encounter
--- OUTSIDE RECORDS SUMMARY | 2025-06-23 12:30 | XMS_ITS | Encounter Summary ---
Author Organization [facility] Address [address] [facility] [address] [place] [address] Phone Care Team Providers Care Commercial Credit Specialist Name Role Phone Darek Ronquillo MD Primary Care Provider Reason for Referral * MRI/CAT Scan - Closed Specialty Diagnoses / Procedures Referred By Renetta castelan Referred To Contact Radiology Diagnoses Maxillary sinus cancer Procedures CT Neck CHG CT NECK TISSUE CONTRAST Sharla De La Cruz MD [address] [place] [address], [facility] [address] [place] [address] Phone: tel: fax: [email or web address] Referral ID Status Reason Start Date Expiration Date Visits Re quested Visits Authorized [id number] Closed 06/12/2022 10/28/2022 1 1 * MRI/CAT Scan - Closed Specialty Diagnoses / Procedures Referred By Renetta castelan Referred To Contact Radiology Diagnoses Maxillary sinus cancer Disorientation, unspecified Procedures CT Head CHG CT SCAN HEAD CONTRAST CHG CT SCAN HEAD COMBO Sharla De La Cruz MD [address] [place] [address], [facility] [address] [place] [address] Phone: tel: fax: [email or web address] Referral ID Status Reason Start Date Expiration Date Visits Re quested Visits Authorized [id number] Closed 06/12/2022 10/28/2022 1 1 Encounter Details Date Type Department Care Team (Late st Contact Info) Description 06/05/2022 Transcribe Orders Virtual Department [address] [place] [address] Sharla De La Cruz MD [address] [facility], [address] [place] [address] [email or web address] Maxillary sinus cancer (Primary Dx) Social History [...] us Sharla Diaz MD IMG CT XSPECIALTY OCTAVOI RIVERA Final Result * CT HEAD WITH [...] right lateral rhinotomy and maxillectomy, with mild jmq-lgyz-nrjn soft tissue enhancement in the inferior aspect [...] sinonasal squamous cell carcinoma. There is mild sri-ufmo-ttld soft tissue enhancement in the inferior aspect [...] and sinonasal squamous cell carcinoma. There is hvrzhiv-poco-kjzs soft tissue enhancement in the inferior aspect [...] prior right lateral rhinotomy andmaxillectomy, with mild pjs-qexi-pxnw soft tissue enhancement in theinferior aspect of the right maxillary sinus fossa, most likelyrepresenting mucosal thickening. No definite evidence of enhancing mass. 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 It is not the complete legal health record.[facility]
--- OUTSIDE RECORDS SUMMARY | 2025-06-23 12:30 | XMS_ITS | Encounter Summary ---
Author Organization [facility] Address [address] [facility] [address] [place] [address] Phone Care Team Providers Care Charge Attendant Name Role Phone Pcp, Not Required Primary Care Provider Darek Monson MD Primary Care Provider Encounter Details Date Type Department Care Team (Late st Contact Info) Description 12/02/2020 Procedure Pass [facility] [address] [place] [address] Social History Tobacco Use Types Packs/Day Years [...] 5:00 PM DYANAT Jackie Mcguire RN * Cole Suicide Severity Rating Scale (Screener/Recent Self-Report) Question [...] on filedocumented in this encounter Care Teams Charge Attendant Relationship Specialty Start Date End Date Pcp, Not Required PCP - General 11/14/20 01/19/21 Darek Ronquillo MD [address] [place] [address] [place] [address] PCP - General Internal Medicine 01/20/21 documented as of this encounter Additional Source Comments The information contained in this document represents components of the legal health record. It is not the complete legal health record.[facility]
== END 2025-06-23 11:05 | disposition home or self-care (01) ==
LOC: HO.HMCHD 10:12
PROVIDERS: PCP Physician Assistant Medical; Visit Provider Physician Assistant Medical
DX: R53.83 Other fatigue (principal); D64.9 Anemia, unspecified; R06.02 Shortness of breath

== ENCOUNTER → 2025-06-23 10:11 | Outpatient (BNVA) | payer MEDICARE, SELFPAY | PROVIDERS: PCP Physician Assistant Medical; Visit Provider Physician Assistant Medical | DX: R06.02 Shortness of breath (principal); R53.83 Other fatigue; D64.9 Anemia, unspecified; Z13.31 Encounter for screening for depression; Z13.39 Encounter for screening examination for other mental health and behavioral disorders | CPT/HCPCS: 96127; 99212 ==

== ENCOUNTER 2025-06-23 11:13 | Outpatient (REF) | payer MEDICARE, SELFPAY ==
[2025-06-23 13:30] LABS: Hematocrit 31.3 % (42.0-52.0); Hemoglobin 10.1 g/dl (14.0-18.0); Mean Corpuscular HGB Conc 32.3 g/dl (31.0-36.0); Mean Corpuscular Hemoglobin 36.3 pg (27.0-33.0); NRBC Abs Auto 0.000 X10*3/uL (0.0-0.012); NRBC Pct Auto 0.0 /100WBC (0.0-0.2); Platelet Count 204 X10*3/uL (160-400); Red Blood Count 2.78 X10*6/uL (4.60-5.80); White Blood Count 4.9 X10*3/uL (4.8-10.8)
[2025-06-23 13:32] LABS: Mean Corpuscular Volume 112.6 fL (80.0-98.0)
[2025-06-23 13:51] LABS: Alanine Aminotransferase 9 U/L (0-40); Albumin Level 3.4 g/dL (3.5-5.0); Alkaline Phosphatase 50 U/L (39-117); Anion Gap 12 (12-20); Aspartate Amino Transferase 46 U/L (5-37); Blood Urea Nitrogen 16 mg/dL (9-16); Calcium 9.1 mg/dL (8.4-10.2); Carbon Dioxide 29 mmol/L (22-29); Chloride 103 mmol/L (96-108); Estimated Glomerular Filt Rate > 60; Iron 145 mcg/dL (45-160); Percent Iron Saturation 37 % (15-50); Potassium 4.0 mmol/L (3.3-5.1); Sodium 140 mmol/L (135-145); Total Iron Binding Capacity 390 mcg/dL (228-428); Total Protein 6.3 g/dL (6.5-8.0); Unsaturated Iron Binding 245 ug/dL
[2025-06-23 14:10] LABS: Ferritin 62 ng/mL (20-250)
== END 2025-06-23 11:14 | disposition home or self-care (01) ==
LOC: HO.10HDL 11:13
PROVIDERS: Visit Provider Physician Assistant Medical
DX: R53.83 Other fatigue (principal); D64.9 Anemia, unspecified
CPT/HCPCS: 36415; 80053; 82728; 83540; 84443; 85027